=== PATIENT | male | born 1965 | race Caucasian/White ===

== ENCOUNTER 2020-09-17 12:48 | Outpatient (REF) | payer MEDICARE, MEDICAID, OTHER, SELFPAY | END 2020-09-17 12:49 | disposition home or self-care (01) | LOC: HO.LAB 12:48 | PROVIDERS: Visit Provider Internal Medicine | DX: Z20.822 Contact with and (suspected) exposure to COVID-19 (principal) | CPT/HCPCS: 36415; C9803; U0003 ==

== ENCOUNTER 2021-01-21 00:45 | Inpatient (IN) | payer MEDICARE, MEDICAID, SELFPAY ==
[2021-01-21] VITALS (14 sets, daily range): BP systolic 110–160; BP diastolic 78–100; PULSE 84–108; RESP 15–22; TEMP 36–37.3; O2SAT 90–96; BMI 39.9
--- NOTE | ~2021-01-21 | XR_ITS ---
EXAMINATION: XR CHEST CLINICAL INFORMATION: Cough COMPARISON: 07/10/2019 TECHNIQUE: Frontal view of the chest was obtained. FINDINGS: Lung volumes are symmetric. There is heterogeneous airspace opacity at the right lung base. No pneumothorax is seen. No appreciable pleural effusion. The cardiomediastinal contour is unremarkable. No acute osseous findings are seen. XR/XR chest 1V IMPRESSION: Heterogeneous right basilar opacity suspicious for pneumonia in the proper clinical setting. Radiographic followup after treatment/resolution of symptoms is recommended.
--- NOTE | ~2021-01-21 | CT_ITS ---
EXAMINATION: CT CHEST WITHOUT CONTRAST CLINICAL INFORMATION: acute hypoxemic respiratory failure sec to pneumonia . COMPARISON: 01/21/2021 chest x-ray. TECHNIQUE: Multidetector volumetric imaging was performed from the thoracic inlet through the lung bases without contrast. Sagittal and coronal reformatted images were obtained on the technologist workstation. Soft tissue and lung algorithms evaluated. Thick slab MIP images were performed to increase nodule conspicuity. This CT examination was performed using dose optimization techniques as appropriate, variously including the following: *Automated exposure control *Adjustment of mA and/or kV according to patient size (this includes techniques or standardized protocols for targeted exams where dose is matched to indication/reason for exam; i.e. extremities or head) *Use of iterative reconstruction technique DLP: 401 mGy-cm. FINDINGS: LUNG: Patchy groundglass airspace disease is seen bilaterally suggesting a viral or atypical infectious etiology. No dense consolidation or air bronchograms otherwise. Central airways appear intact. MEDIASTINUM: Mild vascular calcification within the aorta and coronary vessels. No bulky adenopathy. No significant hiatal hernia PERICARDIUM/PLEURA: No significant effusion. No pleural mass or thickening. THYROID/VISUALIZED LOWER NECK: Thyroid is not visualized on the study CHEST WALL/AXILLA: Unremarkable. VISUALIZED UPPER ABDOMEN: Gallbladder surgically absent CT/CT chest wo con IMPRESSION: Patchy bilateral groundglass airspace disease concerning for viral or atypical infectious etiology without dense consolidation.
--- NOTE | 2021-01-21 00:55 | ED_ITS ---
HPI - Back Pain/Injury General Chief Complaint: Back Pain/Injury Stated Complaint: back pain Time Seen by Provider: 01/21/21 00:53 Source: patient and EMS Mode of arrival: EMS Limitations: no limitations History of Present Illness MD elicited complaint: back pain and back injury Pertinent past history: recent trauma Onset (ago): week(s) (2) Timing: progressively worsening Severity: moderate Similar Symptoms Previously: No Quality: spasming Location: thoracic spine Radiation: none Exacerbating factors: movement and coughing/sneezing Relieving factors: none Context: while lifting (fridge) Associated symptoms: other (noted some cough and wheezing) Work related injury: No Related Data Allergies Allergy/AdvReac Type Severity Reaction Status Date / Time No Known Allergies Allergy Unverified 05/22/20 19:42 [No Known Allergies*] Review of Systems Review of Systems: Constitutional : No Weight loss, No Fever, No Chills, ENT/Mouth : No Hearing loss, No Ear Pain, No Nasal Congestion, No Sinus Pain, No Hoarseness, No sore throat, No Rhinorrhea, No Swallowing Difficulty Cardiovascular : No Chest Pain, No SOB Respiratory : pos Cough, No Dyspnea Gastrointestinal : No Nausea, No Vomiting, No Diarrhea, No abdominal Pain, No Hematochezia, No Melena Genitourinary : No Dysuria, No Urinary Frequency, No Hematuria, No Urinary Incontinence, Musculoskeletal : positive back pain Skin : No Skin Lesions, No rash Neuro : No Weakness, No Numbness, No Paresthesias, no loss of bowel or bladder incontinence, no saddle anesthesia PMFSH Past Medical History Attestation statement: The following information was validated with the patient. Medical History Alcoholic cirrhosis Alcoholism Anxiety COPD (chronic obstructive pulmonary disease) TBI (traumatic brain injury) Social History Social History (Updated 01/21/21 @ 00:56 by Cinthia Hernandez DO) Smoking Status: Current every day smoker Substance Use Type: Former Substance User Advance Directives: No Advance Directives Information Provided: No Physical Exam Vital Signs: Vital Signs: Last Vital Signs Temp 98.4 F 01/21/21 02:48 Pulse 99 01/21/21 02:48 Resp 18 01/21/21 02:48 BP 151/100 H 01/21/21 02:48 Pulse Ox 94 01/21/21 02:48 Body Mass Index 39.9 Appearance: Alert. Oriented X3. No acute distress. Eyes: Pupils equal, round and reactive to light. ENT: Pharynx normal. Neck: Normal inspection. Neck supple. CVS: Normal heart rate and rhythm. Pulses normal. Respiratory: No respiratory distress. Breath sounds mild diffuse end exp wheezes Back: ttp along thoracic paraspinal muscles Abdomen: Soft and nontender. Skin: Skin warm and dry. Normal skin color. Normal skin turgor. Extremities: No lower extremity edema. No calf ttp Neuro: Oriented X 3. No motor deficit. No sensory deficit. Course Course Course Narrative: pneumonia noted on xray, labs, COVID swab, IV antibiotics, cultures ordered, requiring O2 now started wheeze after exerting himself - given 5mg neb, oral steroids were given prior to change in wheezing status - at this time likely admit for COPD does not wear O2 at home MDM - Back Pain/Injury MDM Narrative Medical decision making narrative: 55 yo male hx of COPD, HTN, in recovery for ETOH and heroin comes in with back spasms post lifting a fridge 2 weeks ago - no b/b incontinence, no saddle anesthesia, no AC therapy, no IVDA, at this time also some scant wheezes will need INH, PO prednisone, CXR and valium, NV intact, no signs of CE syndrome Lab Data Result diagrams: 01/21/21 02:24 01/21/21 02:23 Labs: Lab Results 01/21/21 01/21/21 01/21/21 Range/Units 02:21 02:22 02:22 WBC (4.8-10.8) X10*3/uL RBC (4.60-5.80) X10*6/uL Hgb (14.0-18.0) g/dl Hct (42-52) % MCV (80-98) fL MCH (27.0-33.0) pg MCHC (31.0-36.0) g/dl RDW (11.0-16.0) % Plt Count (160-400) X10*3/uL MPV (9.4-12.4) fL Immature Gran % (Auto) (0.0-0.4) % Neut % (Auto) (45-73) % Lymph % (Auto) (20-40) % [place] % (Auto) (2-11) % Eos % (Auto) (0-4) % Baso % (Auto) (0-2) % Lymph # (Auto) (1.2-4.9) X10*3/uL [place] # (Auto) (0.1-1.2) X10*3/uL Eos # (Auto) (0.0-0.4) X10*3/uL Baso # (Auto) (0.0-0.2) X10*3/uL Abs Immat Gran (auto) (0.00-0.03) X10*3/uL Absolute Neuts (auto) (2.0-8.3) X10*3/uL Absolute Nucleated RBC (0.0-0.012) X10*3/uL Nucleated RBC % (auto) (0.0-0.2) /100WBC PT (10.8-13.0) SEC INR (0.9-1.1) APTT (24.1-38.0) SEC Lactic Acid 1.0 (0.5-2.0) mmol/L Magnesium (1.6-2.6) mg/dL Total Bilirubin (0.0-1.0) mg/dL Direct Bilirubin (0.0-0.5) mg/dL AST (5-37) U/L ALT (0-40) U/L Alkaline Phosphatase (39-117) U/L Lactate Dehydrogenase (118-273) U/L Troponin I High Sens < 3.5 (<3.5-35.0) ng/L Total Protein (6.5-8.0) g/dL Albumin (3.5-5.0) g/dL Lipase (8-78) U/L COVID-19 (YADIRA) Negative (Negative) COVID-19 Clin Com See Note 01/21/21 01/21/21 01/21/21 Range/Units 02:23 02:24 02:24 WBC 11.3 H (4.8-10.8) X10*3/uL RBC 4.14 L (4.60-5.80) X10*6/uL Hgb 12.2 L (14.0-18.0) g/dl Hct 36.6 L (42-52) % MCV 88.4 (80-98) fL MCH 29.5 (27.0-33.0) pg MCHC 33.3 (31.0-36.0) g/dl RDW 15.9 (11.0-16.0) % Plt Count 131 L (160-400) X10*3/uL MPV 9.9 (9.4-12.4) fL Immature Gran % (Auto) 0.6 H (0.0-0.4) % Neut % (Auto) 73.4 H (45-73) % Lymph % (Auto) 12.0 L (20-40) % [place] % (Auto) 4.2 (2-11) % Eos % (Auto) 9.5 H (0-4) % Baso % (Auto) 0.3 (0-2) % Lymph # (Auto) 1.4 (1.2-4.9) X10*3/uL [place] # (Auto) 0.5 (0.1-1.2) X10*3/uL Eos # (Auto) 1.1 H (0.0-0.4) X10*3/uL Baso # (Auto) 0.0 (0.0-0.2) X10*3/uL Abs Immat Gran (auto) 0.07 H (0.00-0.03) X10*3/uL Absolute Neuts (auto) 8.3 (2.0-8.3) X10*3/uL Absolute Nucleated RBC 0.000 (0.0-0.012) X10*3/uL Nucleated RBC % (auto) 0.0 (0.0-0.2) /100WBC PT 13.8 H (10.8-13.0) SEC INR 1.2 H (0.9-1.1) APTT 31.0 (24.1-38.0) SEC Lactic Acid (0.5-2.0) mmol/L Magnesium 1.8 (1.6-2.6) mg/dL Total Bilirubin 1.0 (0.0-1.0) mg/dL Direct Bilirubin 0.5 (0.0-0.5) mg/dL AST 21 (5-37) U/L ALT 18 (0-40) U/L Alkaline Phosphatase 170 H (39-117) U/L Lactate Dehydrogenase 335 H (118-273) U/L Troponin I High Sens (<3.5-35.0) ng/L Total Protein 7.4 (6.5-8.0) g/dL Albumin 4.2 (3.5-5.0) g/dL Lipase 9 (8-78) U/L COVID-19 (YADIRA) (Negative) COVID-19 Clin Com ECG Data Attestation: I personally reviewed and interpreted this ECG as follows: ECG interpretation date: 01/21/21 ECG interpretation time: 03:07 Interpretation: Rate: 98 Rhythm: NSR with occ PACs [place]: normal Normal P waves. Normal MATEUSZ. Normal QRS complex. ST T wave : normal no DUANE qTC: normal prior studies: no acute ischemia The study has been interpreted contemporaneously by me. . Discharge Plan Discharge Clinical Impression: Thoracic back pain Qualifiers: Chronicity: acute Back pain laterality: bilateral Qualified Code(s): M54.6 - Pain in thoracic spine COPD (chronic obstructive pulmonary disease) Qualifiers: COPD type: COPD with acute exacerbation Qualified Code(s): J44.1 - Chronic obstructive pulmonary disease with (acute) exacerbation Pneumonia Qualifiers: Pneumonia type: due to unspecified organism Laterality: right Lung location: lower lobe of lung Qualified Code(s): J18.9 - Pneumonia, unspecified organism Patient Disposition: Admitted As Inpatient
[2021-01-21] MEDS: predniSONE 20 MG TABLET 60 MG PO (01:08)
[2021-01-21] MEDS: diazePAM 5 MG TABLET PO (01:08)
[2021-01-21] MEDS: Albuterol Sulfate 90 MCG 8 GM INHALER 4 PUFF INHALE (01:08)
--- NOTE | 2021-01-21 01:25 | ECG_ITS ---
Test Reason : SOB Blood Pressure : / mmHG Vent. Rate : 098 BPM Atrial Rate : 098 BPM P-R Int : 164 ms QRS Dur : 080 ms QT Int : 350 ms P-R-T Axes : 023 017 023 degrees QTc Int : 446 ms Sinus rhythm with Premature atrial complexes Otherwise normal ECG When compared with ECG of 10-JUL-2019 11:40, Premature atrial complexes are now Present Referred By: Cinthia Hernandez Electronically Signed By:VIJI BRAY MD
[2021-01-21 02:42] LABS: INTERNATIONAL NORM RATIO 1.2 (0.9-1.1); Prothrombin Time 13.8 SEC (10.8-13.0)
[2021-01-21 02:45] LABS: Basophils Percent Auto 0.3 % (0-2); Mean Corpuscular Volume 88.4 fL (80-98); PLT CLUMP 1; Red Cell Distribution Width 15.9 % (11.0-16.0); SCAN SMEAR FLAG 1
[2021-01-21 02:47] LABS: Eosinophils Absolute Auto 1.1 X10*3/uL (0.0-0.4); Eosinophils Percent Auto 9.5 % (0-4); Hematocrit 36.6 % (42-52); Hemoglobin 12.2 g/dl (14.0-18.0); Imm Gran Abs Auto 0.07 X10*3/uL (0.00-0.03); Imm Gran Pct Auto 0.6 % (0.0-0.4); Lymphocytes Absolute Auto 1.4 X10*3/uL (1.2-4.9); Mean Corpuscular HGB Conc 33.3 g/dl (31.0-36.0); Mean Corpuscular Hemoglobin 29.5 pg (27.0-33.0); Mean Platelet Volume 9.9 fL (9.4-12.4); Monocytes Absolute Auto 0.5 X10*3/uL (0.1-1.2); Monocytes Percent Auto 4.2 % (2-11); Neutrophils Absolute Auto 8.3 X10*3/uL (2.0-8.3); Neutrophils Percent Auto 73.4 % (45-73); Platelet Count 131 X10*3/uL (160-400); Red Blood Count 4.14 X10*6/uL (4.60-5.80); White Blood Count 11.3 X10*3/uL (4.8-10.8)
[2021-01-21 02:51] LABS: COVID-19 Test Negative (Negative)
[2021-01-21 02:52] LABS: MANUAL DIFF FLAG NO
[2021-01-21] MEDS: cefTRIAXone sodium 1 GM in 0.9 % Sodium Chloride 50 ML IV ×2 (02:55→22:25)
[2021-01-21] MEDS: Acetaminophen 325 MG TABLET 650 MG PO (02:55)
[2021-01-21 03:05] LABS: Alanine Aminotransferase 18 U/L (0-40); Albumin Level 4.2 g/dL (3.5-5.0); Alkaline Phosphatase 170 U/L (39-117); Aspartate Amino Transferase 21 U/L (5-37); Bilirubin Direct 0.5 mg/dL (0.0-0.5); Lactate Dehydrogenase 335 U/L (118-273); Lipase 9 U/L (8-78); Magnesium 1.8 mg/dL (1.6-2.6); Total Protein 7.4 g/dL (6.5-8.0)
[2021-01-21 03:08] LABS: Troponin-I High Sensitivity < 3.5 ng/L (<3.5-35.0)
[2021-01-21 03:11] LABS: B Type Natriuretic Peptide < 10 pg/mL (<100)
[2021-01-21] MEDS: Azithromycin 500 MG in 0.9 % Sodium Chloride 250 ML 125 MG IV ×2 (03:15→22:25)
[2021-01-21 03:25] LABS: Ferritin 84 ng/mL (20-250)
[2021-01-21 03:40] LABS: Procalcitonin 0.08 ng/mL
[2021-01-21] MEDS: Albuterol Sulfate (0.083%) 2.5 MG/3 ML VIAL.NEB 5 MG INHALE (03:58)
[2021-01-21 05:01] LABS: Anion Gap 16 (12-20); Blood Urea Nitrogen 17 mg/dL (9-16); Calcium 8.9 mg/dL (8.4-10.2); Carbon Dioxide 24 mmol/L (22-29); Chloride 99 mmol/L (96-108); Creatinine Clr Calc Pharmacy 82.9; Estimated Glomerular Filt Rate 58; Glucose Random 144 mg/dL (60-115); Potassium 4.2 mmol/L (3.3-5.1); Sodium 135 mmol/L (135-145)
--- NOTE | 2021-01-21 05:03 | PM.IMHP ---
History of Present Illness Date of Service: 01/21/21 Chief Complaint: Difficulty breathing, back pain This is a 55-year-old male with past medical history of COPD, hypertension, TBI, CHF who presents to the hospital with complaints of difficulty breathing as well as back pain. Patient reports that his breathing difficulty started about 2 weeks ago, worsened over the course of 2 weeks, associated with cough, sputum production, no fever but chills and sweats. He also moved afraid about a week and half ago on this when he is back started hurting him associated with spasm. Localized to the middle back, 05/15, nonradiating to arms or legs, no weakness numbness or tingling in his extremities. Patient denies any sick contacts or recent travel. Denies any orthopnea PND, no urinary symptoms and no lower extremity edema. No headache change in vision or dizziness. On arrival to the ED patient hemodynamically stable with a temperature of 99.2?, heart rate of 101, respiratory rate of 22, blood pressure of 148/80, satting 90% on room air. Patient apparently did dip to the low 80s on ambulation. Lab significant for WBC count of 11.3, hemoglobin of 12.2, PT of 13.8, INR of 1.2, BUN of 17, creatinine of 1.27 which is around his baseline, alk-phos of 170, and LDH of 335. COVID-19 negative. Chest x-ray shows heterogeneous right basilar opacity suspicious for pneumonia Past medical history as below and confirmed as patient Review of Systems Review of Systems: Yes all other systems are reviewed and are negative [facility] Medical History (Updated 01/21/21 @ 05:11 by Di Mancuso MD) Anxiety CHF (congestive heart failure) COPD (chronic obstructive pulmonary disease) COPD exacerbation Hypertension TBI (traumatic brain injury) Pertinent family history: Mother of lymphoma, father of Alzheimer's Surgical History (Updated 01/21/21 @ 05:09 by Di Mancuso MD) No significant past surgical history Social History Alcohol intake: never Smoking Status: Current every day smoker Smoked in Last 30 Days: Yes Use of substances other than those prescribed or required for medical reasons: No Substance Use Type: Former Substance User Advance Directives: No Advance Directives Information Provided: No Meds Allergies Allergy/AdvReac Type Severity Reaction Status Date / Time No Known Allergies Allergy Unverified 05/22/20 19:42 [No Known Allergies*] Active Medications: Current Medications Generic Name Dose Route Start Last Admin Trade Name Freq PRN Reason Stop Dose Admin Acetaminophen 650 mg 01/21/21 04:56 Acetaminophen 325 Mg Tablet PO Q6H PRN Pain, Mild (Pain Scale 1-3) Albuterol/Ipratropium 3 ml 01/21/21 08:00 Albuterol/Iprat 2.5/0.5mg 3 Ml Ampul.Neb INHALE RQ4H WHILE AWAKE [facility] Albuterol/Ipratropium 3 ml 01/21/21 04:56 Albuterol/Iprat 2.5/0.5mg 3 Ml Ampul.Neb INHALE RQ4H PRN Shortness of Breath/Wheezing Aripiprazole 5 mg 01/21/21 09:00 Aripiprazole 5 Mg Tablet PO DAILY [facility] Buprenorphine/Naloxone film 01/21/21 09:00 Buprenorphine/Naloxone 8/2 Mg Film SUBLINGUAL DAILY [facility] Bupropion HCl 300 mg 01/21/21 04:56 Bupropion Hcl Xl 300 Mg Tab.Er.24h PO QAM [facility] Clonidine HCl 0.1 mg 01/21/21 09:00 Clonidine Hcl 0.1 Mg Tablet PO BID [facility] Protocol Cyclobenzaprine HCl 10 mg 01/21/21 04:52 Cyclobenzaprine Hcl 10 Mg Tablet PO TID PRN Muscle Spasm Docusate Sodium 100 mg 01/21/21 04:56 Docusate Sodium 100 Mg Capsule PO DAILY PRN Constipation Enoxaparin Sodium 40 mg 01/21/21 05:00 Enoxaparin Sodium 40 Mg/0.4 Ml Syringe SUBCUT Q24H [facility] Furosemide 40 mg 01/21/21 09:00 Furosemide 40 Mg Tablet PO DAILY [facility] Protocol Hydroxyzine HCl 25 mg 01/21/21 04:56 Hydroxyzine Hcl 25 Mg Tablet PO Q8H PRN Anxiety Ceftriaxone Sodium 1 gm/ 50 mls @ 100 mls/hr 01/21/21 05:00 Sodium Chloride IV Q24H [facility] Azithromycin 500 mg/ Sodium 250 mls @ 125 mls/hr 01/21/21 05:00 Chloride IV Q24H [facility] Lidocaine 1 patch 01/21/21 09:00 Lidocaine 4 % Patch Adh..Patch TRANSDERMA DAILY [facility] Protocol Methylprednisolone Sodium Succinate 40 mg 01/21/21 05:00 Methylprednisolone Sod Succ 40 Mg/Ml Vial IVPUSH Q12H [facility] Non-Formulary Medication 1 tab 01/21/21 04:56 Bupropion Hcl PO QAM [facility] Omeprazole 20 mg 01/21/21 09:00 Omeprazole 20 Mg Capsule.Dr PO DAILY [facility] Ondansetron HCl 4 mg 01/21/21 04:56 Ondansetron Hcl 4 Mg/2 Ml Vial IVPUSH Q8H PRN Nausea and Vomiting Paroxetine HCl 40 mg 01/21/21 04:56 Paroxetine Hcl 40 Mg Tablet PO QAM [facility] Pharmacy Consult 1 each 01/21/21 01:25 Consult Rx Perform Med Rec MISCELLANE ONCE PRN Consult order Pharmacy Consult 1 each 01/21/21 02:54 Consult Rx Perform Med Rec MISCELLANE ONCE PRN Consult order Sodium Chloride 3 ml 01/21/21 08:00 0.9 % Sodium Chloride Flush 3 Ml [facility] Spironolactone 25 mg 01/21/21 09:00 Spironolactone 25 Mg Tablet PO DAILY [facility] Protocol Tamsulosin HCl 0.8 mg 01/21/21 09:00 Tamsulosin Hcl 0.4 Mg Capsule PO DAILY [facility] Home Medications Medication Instructions Recorded Confirmed Last Taken Type aripiprazole 1 tab PO DAILY 01/21/21 01/21/21 Unknown History buprenorphine-naloxone [Suboxone] 2 strip SUBLINGUAL DAILY 01/21/21 01/21/21 Unknown History bupropion HCl 1 tab PO QAM 01/21/21 01/21/21 Unknown History bupropion HCl 1 tab PO QAM 01/21/21 01/21/21 Unknown History clonidine HCl 1 tab PO BID 01/21/21 01/21/21 Unknown History sknnvlcctuy-jafubqfet-upvfufld 1 puff INHALATION DAILY 01/21/21 01/21/21 Unknown History [Trelegy Ellipta] furosemide 1 tab PO DAILY 01/21/21 01/21/21 Unknown History hydroxyzine HCl 25 mg PO Q8H PRN 01/21/21 01/21/21 Unknown History ibuprofen 1 tab PO Q8H PRN 01/21/21 01/21/21 Unknown History nicotine [Nicotrol] INHALATION 01/21/21 Unknown History omeprazole 1 cap PO DAILY 01/21/21 01/21/21 Unknown History paroxetine HCl 1 tab PO QAM 01/21/21 01/21/21 Unknown History spironolactone 1 tab PO DAILY 01/21/21 01/21/21 Unknown History tamsulosin 2 cap PO DAILY 01/21/21 01/21/21 Unknown History Physical Exam Vital Signs and Narrative: Vital Signs: Last Vital Signs Temp 98.6 F 01/21/21 04:56 Pulse 95 01/21/21 04:56 Resp 15 01/21/21 04:56 BP 138/88 01/21/21 04:56 Pulse Ox 94 01/21/21 04:56 Body Mass Index 39.9 Const: General: cooperative and no acute distress Orientation/consciousness: patient oriented x3 Eyes: General: appearance normal, both eyes and all related structures Resp: Effort & Inspection: normal respiratory effort and able to speak in complete sentences Cardio: Rate: regular rate Rhythm: regular rhythm GI: Palpation (GI): Soft to palpation Auscultation: normal bowel sounds Skin: General skin exam: no rashes or lesions noted Neuro: General: patient oriented x3 Cognition (Neuro): normal cognition Extrem: Other: Significant muscle spasm as well as tenderness in the midback on palpation. No neurological deficits General: Yes normal to inspection and Yes no pedal edema Results Labs CBC and Chem 7: 01/21/21 02:24 01/21/21 02:23 Labs: Laboratory Results - last 24 hr 01/21/21 01/21/21 01/21/21 02:21 02:22 02:22 MCV MCH MCHC RDW Plt Count MPV Immature Gran % (Auto) Neut % (Auto) Lymph % (Auto) [place] % (Auto) Eos % (Auto) Baso % (Auto) Lymph # (Auto) [place] # (Auto) Eos # (Auto) Baso # (Auto) Abs Immat Gran (auto) Absolute Neuts (auto) Absolute Nucleated RBC Nucleated RBC % (auto) PT INR APTT Anion Gap Estim Creat Clear Calc Estimated GFR Random Glucose Lactic Acid 1.0 Calcium Magnesium Ferritin Total Bilirubin Direct Bilirubin AST ALT Alkaline Phosphatase Lactate Dehydrogenase Troponin I High Sens < 3.5 B-Natriuretic Peptide Total Protein Albumin Lipase Procalcitonin COVID-19 ([facility]A) Negative COVID-19 Clin Com See Note 01/21/21 01/21/2101/21/21 02:22 02:23 02:23 MCV MCH MCHC RDW Plt Count MPV Immature Gran % (Auto) Neut % (Auto) Lymph % (Auto) [place] % (Auto) Eos % (Auto) Baso % (Auto) Lymph # (Auto) [place] # (Auto) Eos # (Auto) Baso # (Auto) Abs Immat Gran (auto) Absolute Neuts (auto) Absolute Nucleated RBC Nucleated RBC % (auto) PT INR APTT Anion Gap 16 Estim Creat Clear Calc 82.9 Estimated GFR 58 Random Glucose 144 H Lactic Acid Calcium 8.9 Magnesium Ferritin Total Bilirubin Direct Bilirubin AST ALT Alkaline Phosphatase Lactate Dehydrogenase Troponin I High Sens B-Natriuretic Peptide < 10 Total Protein Albumin Lipase Procalcitonin 0.08 COVID-19 ([facility]ADIRA) COVID-19 Symphogen 01/21/21 01/21/21 01/21/21 02:23 02:24 02:24 MCV 88.4 MCH 29.5 MCHC 33.3 RDW 15.9 Plt Count 131 L MPV 9.9 Immature Gran % (Auto) 0.6 H Neut % (Auto) 73.4 H Lymph % (Auto) 12.0 L [place] % (Auto) 4.2 Eos % (Auto) 9.5 H Baso % (Auto) 0.3 Lymph # (Auto) 1.4 [place] # (Auto) 0.5 Eos # (Auto) 1.1 H Baso # (Auto) 0.0 Abs Immat Gran (auto) 0.07 H Absolute Neuts (auto) 8.3 Absolute Nucleated RBC 0.000 Nucleated RBC % (auto) 0.0 PT 13.8 H INR 1.2 H APTT 31.0 Anion Gap Estim Creat Clear Calc Estimated GFR Random Glucose Lactic Acid Calcium Magnesium 1.8 Ferritin 84 Total Bilirubin 1.0 Direct Bilirubin 0.5 AST 21 ALT 18 Alkaline Phosphatase 170 H Lactate Dehydrogenase 335 H Troponin I High Sens B-Natriuretic Peptide Total Protein 7.4 Albumin 4.2 Lipase 9 Procalcitonin COVID-19 ([facility]) COVID-19 Clin Com Imaging Radiologist's Impressions: Impressions Chest X-Ray 01/21/21 00:53 IMPRESSION: Heterogeneous right basilar opacity suspicious for pneumonia in the proper clinical setting. Radiographic followup after treatment/resolution of symptoms is recommended. Assessment and Plan (1) Sepsis: Status: Acute (2) COPD exacerbation: Status: Acute (3) Muscle spasm: Status: Acute (4) Community acquired pneumonia: Status: Acute (5) Thoracic back pain: Qualifiers: Back pain laterality: bilateral Chronicity: acute Qualified Code(s): M54.6 - Pain in thoracic spine Status: Acute This is a 55-year-old male with past medical history of COPD who presents to the hospital with difficulty breathing cough as well as muscle spasm and back pain. # sepsis - secondary to community-acquired pneumonia - has leukocytosis, tachycardia, tachypnea - lactic acid normal no hypertension - will start him IV antibiotics - follow cultures # community-acquired pneumonia - COVID-19 PCR negative - started on IV antibiotics - follow cultures # muscle spasm - most likely secondary to recent moving of heavy equipment - will start him on muscle relaxants p.r.n. # back pain - secondary to above - lidocaine patch and muscle relaxant # COPD exacerbation - secondary to acute pneumonia - will start him on Solu-Medrol IV 40 b.i.d., DuoNeb p.r.n. and scheduled - antibiotics as above # acute hypoxic respiratory failure - also dropping to the 80s on ambulation most likely secondary to COPD as well as pneumonia - currently on 3 L of oxygen - treat pneumonia as above - wean off oxygen as tolerated # hypertension - stable - continue spironolactone, clonidine # CHF - no exacerbation - continue Lasix home dose DVT prophylaxis:lovenox
[2021-01-21] MEDS: methylPREDNISolone Sod Succ 40 MG/ML VIAL IVPUSH ×2 (06:09→15:53)
--- NOTE | 2021-01-21 06:27 | PC.NURSE ---
This rn counted and secured all of pt's medications; controlled substances verified by Mamta Murcia RN. This RN brought secured/signed envelope to pharmacy, put white copy of paper count in pt's chart, and left pink and yellow copies with pharmacy. Pt aware.
[2021-01-21] MEDS: Albuterol/Iprat 2.5/0.5MG 3 ML AMPUL.NEB INHALE ×4 (07:50→20:24)
--- NOTE | 2021-01-21 08:16 | PM.EVENT ---
Event Note Date of Service: 01/21/21 Event Note: This patient is seen and examined. Physical exam and assessment and plan coordinated in h&p note, sob and cough improving Physical exam: Cvs: rrr, [id number] , no murmur res: fair air entruy , diminshed at right>left ,has wheezing abd: no rebound or guarding ,nt, bs present. ext pulses present , no cyanosis neuro: axo3 , nonfocal. Agree with the plan in addition: sepsis/pna: Continue IV antibiotics, nebs, steroids
[2021-01-21] MEDS: Cyclobenzaprine HCl 10 MG TABLET PO ×3 (08:32→20:17)
[2021-01-21] MEDS: Enoxaparin Sodium 40 MG/0.4 ML SYRINGE SUBCUT (08:32)
[2021-01-21] MEDS: Lidocaine 4 % Patch ADH..PATCH 1 PATCH TRANSDERMA (09:51)
[2021-01-21] MEDS: Tamsulosin HCL 0.4 MG CAPSULE 0.8 MG PO (09:51)
[2021-01-21] MEDS: Buprenorphine/Naloxone 8/2 mg FILM 2 FILM SUBLINGUAL (09:51)
[2021-01-21] MEDS: Furosemide 40 MG TABLET PO (09:52)
[2021-01-21] MEDS: ARIPiprazole 5 MG TABLET PO (09:52)
[2021-01-21] MEDS: buPROPion HCl XL 300 MG TAB.ER.24H PO (09:52)
[2021-01-21] MEDS: 0.9 % Sodium Chloride Flush 3 ML SYRINGE IVFLUSH ×2 (09:52→15:54)
[2021-01-21] MEDS: cloNIDine HCL 0.1 MG TABLET PO ×2 (09:52→20:17)
[2021-01-21] MEDS: PARoxetine HCL 40 MG TABLET PO (09:52)
[2021-01-21] MEDS: Omeprazole 20 MG CAPSULE.DR PO (09:52)
[2021-01-21] MEDS: Spironolactone 25 MG TABLET PO (09:52)
[2021-01-21] MEDS: Nicotine 14 MG PATCH.TD24 TRANSDERMA (10:13)
--- NOTE | 2021-01-21 11:28 | MHC.CM.PN ---
PATIENT IS FULLY INDEPENDENT. HE HAS INHALERS AND A DISK AT HOME. HE DOES RELY ON OTHERS FOR TRANSPORTATION. CURRENTLY STAYING AT A SOBER LIVING HOME AND ADDRESS CHANGE REQUEST HAS BEEN MADE. NO DME FOR AMBULATION. IMM 01/21 IN CHART. CASE MANAGEMENT FOLLOWING FOR DISCHARGE NEEDS. HE IS AWARE OF IMPORTANCE OF ASSIGNING A HCP AGENT AND WILL CONSIDER. CASE MANAGEMENT CONTACT CARD LEFT BEDSIDE.
[2021-01-22] VITALS (13 sets, daily range): BP systolic 114–147; BP diastolic 67–82; PULSE 85–102; RESP 16–24; TEMP 36.2–36.7; O2SAT 90–96
[2021-01-22] MEDS: methylPREDNISolone Sod Succ 40 MG/ML VIAL IVPUSH ×2 (04:24→18:02)
[2021-01-22 04:58] LABS: MANUAL DIFF FLAG NO
[2021-01-22 05:08] LABS: Basophils Percent Auto 0.2 % (0-2); Eosinophils Percent Auto 0.3 % (0-4); Hematocrit 34.1 % (42-52); Hemoglobin 11.5 g/dl (14.0-18.0); Imm Gran Abs Auto 0.06 X10*3/uL (0.00-0.03); Imm Gran Pct Auto 0.6 % (0.0-0.4); Lymphocytes Absolute Auto 0.9 X10*3/uL (1.2-4.9); Lymphocytes Percent Auto 8.4 % (20-40); Mean Corpuscular HGB Conc 33.7 g/dl (31.0-36.0); Mean Corpuscular Hemoglobin 29.6 pg (27.0-33.0); Mean Corpuscular Volume 87.7 fL (80-98); Mean Platelet Volume 10.4 fL (9.4-12.4); Monocytes Absolute Auto 0.4 X10*3/uL (0.1-1.2); Monocytes Percent Auto 3.7 % (2-11); Neutrophils Absolute Auto 8.8 X10*3/uL (2.0-8.3); Neutrophils Percent Auto 86.8 % (45-73); Platelet Count 115 X10*3/uL (160-400); Red Blood Count 3.89 X10*6/uL (4.60-5.80); Red Cell Distribution Width 15.4 % (11.0-16.0); White Blood Count 10.2 X10*3/uL (4.8-10.8)
[2021-01-22 05:26] LABS: Anion Gap 15 (12-20); Blood Urea Nitrogen 21 mg/dL (9-16); Calcium 9.2 mg/dL (8.4-10.2); Carbon Dioxide 25 mmol/L (22-29); Chloride 102 mmol/L (96-108); Creatinine Clr Calc Pharmacy 109.7; Estimated Glomerular Filt Rate > 60; Glucose Random 139 mg/dL (60-115); Sodium 138 mmol/L (135-145)
[2021-01-22] MEDS: Albuterol/Iprat 2.5/0.5MG 3 ML AMPUL.NEB INHALE ×5 (07:24→23:53)
[2021-01-22] MEDS: Buprenorphine/Naloxone 8/2 mg FILM 2 FILM SUBLINGUAL (07:26)
[2021-01-22] MEDS: Nicotine 14 MG PATCH.TD24 TRANSDERMA (07:27)
[2021-01-22] MEDS: Lidocaine 4 % Patch ADH..PATCH 1 PATCH TRANSDERMA (07:27)
[2021-01-22] MEDS: Enoxaparin Sodium 40 MG/0.4 ML SYRINGE SUBCUT (07:27)
[2021-01-22] MEDS: Tamsulosin HCL 0.4 MG CAPSULE 0.8 MG PO (07:28)
[2021-01-22] MEDS: Spironolactone 25 MG TABLET PO (07:28)
[2021-01-22] MEDS: Furosemide 40 MG TABLET PO (07:28)
[2021-01-22] MEDS: Omeprazole 20 MG CAPSULE.DR PO (07:28)
[2021-01-22] MEDS: buPROPion HCl XL 300 MG TAB.ER.24H PO (07:29)
[2021-01-22] MEDS: PARoxetine HCL 40 MG TABLET PO (07:29)
[2021-01-22] MEDS: ARIPiprazole 5 MG TABLET PO (07:29)
[2021-01-22] MEDS: cloNIDine HCL 0.1 MG TABLET PO ×2 (07:29→21:43)
[2021-01-22] MEDS: 0.9 % Sodium Chloride Flush 3 ML SYRINGE IVFLUSH ×3 (07:30→21:43)
[2021-01-22] MEDS: buPROPion HCl XL 150 MG TAB.ER.24H PO (08:10)
[2021-01-22] MEDS: Cyclobenzaprine HCl 10 MG TABLET PO ×2 (08:12→15:40)
[2021-01-22] MEDS: Acetaminophen 325 MG TABLET 650 MG PO (09:43)
[2021-01-22] MEDS: hydrOXYzine HCL 25 MG TABLET PO (09:50)
[2021-01-22] MEDS: hydrOXYzine HCL 25 MG TABLET 50 MG PO ×2 (10:36→18:02)
--- NOTE | 2021-01-22 11:33 | MHC.CM.PN ---
PATIENT IS DISCHARGED HOME WITH NO SERVICES. SISTER TO PROVIDE TRANSPORT HOME.
--- NOTE | 2021-01-22 14:48 | HO.PM.IMPN ---
Subjective Subjective Date of Service: 01/23/21 Interval History: copd exceerbation, pneumonia Review of Systems still sob Has some gaseous sensation in the stomach, past bowels yesterday. Denies any nausea vomiting or diarrhea. No abdominal pain Physical Exam Vital Signs: Vital Signs: Last Vital Signs Temp 97.1 F 01/22/21 11:13 Pulse 102 H 01/22/21 11:13 Resp 20 01/22/21 11:13 BP 119/67 01/22/21 11:13 Pulse Ox 92 01/22/21 11:13 Body Mass Index 39.9 Physical exam: Constitution: Noted acute distress Cvs: rrr, [id number] , no murmur res: fair air entry , diminshed at right>left ,has few rhonchii abd: no rebound or guarding ,nt, bs present. ext pulses present , no cyanosis neuro: axo3 , nonfocal. Objective Data Current Medications Generic Name Dose Route Start Last Admin Trade Name Freq PRN Reason Stop Dose Admin Acetaminophen 650 mg 01/21/21 04:56 01/22/21 09:43 Acetaminophen 325 Mg Tablet PO 650 mg Q6H PRN Administration Pain, Mild (Pain Scale 1-3) Albuterol/Ipratropium 3 ml 01/21/21 08:00 01/22/21 11:02 Albuterol/Iprat 2.5/0.5mg 3 Ml Ampul.Neb INHALE 3 ml RQ4H WHILE AWAKE SHARIF Administration Albuterol/Ipratropium 3 ml 01/21/21 04:56 Albuterol/Iprat 2.5/0.5mg 3 Ml Ampul.Neb INHALE RQ4H PRN Shortness of Breath/Wheezing Aripiprazole 5 mg 01/21/21 09:00 01/22/21 07:29 Aripiprazole 5 Mg Tablet PO 5 mg DAILY SHARIF Administration Buprenorphine/Naloxone 2 film 01/21/21 09:00 01/22/21 07:26 Buprenorphine/Naloxone 8/2 Mg Film SUBLINGUAL 2 film DAILY SHARIF Administration Bupropion HCl 300 mg 01/21/21 09:00 01/22/21 07:29 Bupropion Hcl Xl 300 Mg Tab.Er.24h PO 300 mg DAILY SHARIF Administration Bupropion HCl 150 mg 01/22/21 09:00 01/22/21 08:10 Bupropion Hcl Xl 150 Mg Tab.Er.24h PO 150 mg DAILY SHARIF Administration Clonidine HCl 0.1 mg 01/21/21 09:00 01/22/21 07:29 Clonidine Hcl 0.1 Mg Tablet PO 0.1 mg BID SHARIF Administration Protocol Cyclobenzaprine HCl 10 mg 01/21/21 04:52 01/22/21 08:12 Cyclobenzaprine Hcl 10 Mg Tablet PO 10 mg TID PRN Administration Muscle Spasm Docusate Sodium 100 mg 01/21/21 04:56 Docusate Sodium 100 Mg Capsule PO DAILY PRN Constipation Enoxaparin Sodium 40 mg 01/21/21 07:00 01/22/21 07:27 Enoxaparin Sodium 40 Mg/0.4 Ml Syringe SUBCUT 40 mg Q24H SHARIF Administration Furosemide 40 mg 01/21/21 09:00 01/22/21 07:28 Furosemide 40 Mg Tablet PO 40 mg DAILY SHARIF Administration Protocol Hydroxyzine HCl 50 mg 01/22/21 10:11 01/22/21 10:36 Hydroxyzine Hcl 25 Mg Tablet PO 25 mg Q8H PRN Administration Anxiety Ceftriaxone Sodium 1 gm/ 50 mls @ 100 mls/hr 01/21/21 22:00 01/21/21 22:57 Sodium Chloride IV Infused Q24H SHARIF Infusion Azithromycin 500 mg/ Sodium 250 mls @ 125 mls/hr 01/21/21 22:00 01/22/21 00:34 Chloride IV Infused Q24H SHARIF Infusion Lidocaine 1 patch 01/21/21 09:00 01/22/21 07:27 Lidocaine 4 % Patch Adh..Patch TRANSDERMA 1 patch DAILY SHARIF Administration Protocol Methylprednisolone Sodium Succinate 40 mg 01/21/21 05:00 01/22/21 04:24 Methylprednisolone Sod Succ 40 Mg/Ml Vial IVPUSH 40 mg Q12H SHARIF Administration Nicotine 14 mg 01/21/21 11:00 01/22/21 07:27 Nicotine 14 Mg Patch.Td24 TRANSDERMA 14 mg DAILY SHARIF Administration Omeprazole 20 mg 01/21/21 09:00 01/22/21 07:28 Omeprazole 20 Mg Capsule.Dr PO 20 mg DAILY SHARIF Administration Ondansetron HCl 4 mg 01/21/21 04:56 Ondansetron Hcl 4 Mg/2 Ml Vial IVPUSH Q8H PRN Nausea and Vomiting Paroxetine HCl 40 mg 01/21/21 09:00 01/22/21 07:29 Paroxetine Hcl 40 Mg Tablet PO 40 mg DAILY SHARIF Administration Pharmacy Consult 1 each 01/21/21 01:25 Consult Rx Perform Med Rec MISCELLANE ONCE PRN Consult order Sodium Chloride 3 ml 01/21/21 08:00 01/22/21 07:30 0.9 % Sodium Chloride Flush 3 Ml Syringe IVFLUSH 3 ml QSHIFT SHARIF Administration Spironolactone 25 mg 01/21/21 09:00 01/22/21 07:28 Spironolactone 25 Mg Tablet PO 25 mg DAILY SHARIF Administration Protocol Tamsulosin HCl 0.8 mg 01/21/21 09:00 01/22/21 07:28 Tamsulosin Hcl 0.4 Mg Capsule PO 0.8 mg DAILY SHARIF Administration Labs CBC & Chem 7: 01/23/21 04:49 01/23/21 04:49 Microbiology Microbiology Results: Microbiology 01/21/21 02:54 Blood - Venous Blood Culture - Preliminary No growth after 24 hours. 01/21/21 02:54 Blood - Venous Blood Culture - Preliminary No growth after 24 hours. Assessment and Plan (1) Community acquired pneumonia: Status: Acute (2) Sepsis: Status: Acute Assessment and Plan: 55-year-old male with past medical history of COPD who presents to the hospital with difficulty breathing cough as well as muscle spasm and back pain. 1.sepsis- secondary to community-acquired pneumonia has leukocytosis,, tachypnea seems to be resolved. lactic acid normal no hypertension continue him ceftriaxone /azithromycin day2. - follow cultures 2. community-acquired pneumonia:COVID-19 PCR negative - started on IV antibiotics - follow cultures 3. muscle spasm/ back pain: - secondary to above - lidocaine patch and muscle relaxant 4. COPD exacerbation - secondary to acute pneumonia - will start him on Solu-Medrol IV 40 b.i.d., DuoNeb p.r.n. and scheduled - antibiotics as above 5. acute hypoxic respiratory failure - also dropping to the 80s on ambulation most likely secondary to COPD as well as pneumonia - currently on 3 L of oxygen - treat pneumonia as above - wean off oxygen as tolerated 6.hypertension - stable - continue spironolactone, clonidine 7. CHF - no exacerbation - continue Lasix home dose
[2021-01-22] MEDS: Magnesium Hydrox/Alum Hydrox 30 ML ORAL.SUSP 15 ML PO (15:37)
[2021-01-22] MEDS: cefTRIAXone sodium 1 GM in 0.9 % Sodium Chloride 50 ML IV (21:44)
[2021-01-22] MEDS: Azithromycin 500 MG in 0.9 % Sodium Chloride 250 ML 125 MG IV (22:19)
[2021-01-22] MEDS: Throat Lozenge, Medicated LOZENGE 1 LOZENGE MUCOUS MEM (22:22)
[2021-01-22] MEDS: guaiFENesin DM 100/10/5 ML 5 ML SYRUP PO (22:22)
[2021-01-23] VITALS (13 sets, daily range): BP systolic 111–156; BP diastolic 82–100; PULSE 88–107; RESP 18–22; TEMP 35.5–36.6; O2SAT 88–97
[2021-01-23 05:12] LABS: Hematocrit 35.5 % (42-52); Hemoglobin 11.8 g/dl (14.0-18.0); Mean Corpuscular HGB Conc 33.2 g/dl (31.0-36.0); Mean Corpuscular Hemoglobin 29.3 pg (27.0-33.0); Mean Corpuscular Volume 88.1 fL (80-98); Mean Platelet Volume 9.9 fL (9.4-12.4); Platelet Count 116 X10*3/uL (160-400); Red Blood Count 4.03 X10*6/uL (4.60-5.80); Red Cell Distribution Width 15.5 % (11.0-16.0); White Blood Count 8.6 X10*3/uL (4.8-10.8)
[2021-01-23] MEDS: methylPREDNISolone Sod Succ 40 MG/ML VIAL IVPUSH ×2 (05:19→19:49)
[2021-01-23 05:40] LABS: Anion Gap 13 (12-20); Blood Urea Nitrogen 22 mg/dL (9-16); Calcium 9.2 mg/dL (8.4-10.2); Carbon Dioxide 28 mmol/L (22-29); Chloride 99 mmol/L (96-108); Creatinine Clr Calc Pharmacy 104.3; Estimated Glomerular Filt Rate > 60; Glucose Random 124 mg/dL (60-115); Sodium 136 mmol/L (135-145)
[2021-01-23] MEDS: 0.9 % Sodium Chloride Flush 3 ML SYRINGE IVFLUSH ×3 (07:17→21:42)
[2021-01-23] MEDS: ARIPiprazole 5 MG TABLET PO (07:18)
[2021-01-23] MEDS: Tamsulosin HCL 0.4 MG CAPSULE 0.8 MG PO (07:18)
[2021-01-23] MEDS: Nicotine 14 MG PATCH.TD24 TRANSDERMA (07:18)
[2021-01-23] MEDS: buPROPion HCl XL 300 MG TAB.ER.24H PO (07:18)
[2021-01-23] MEDS: Furosemide 40 MG TABLET PO (07:19)
[2021-01-23] MEDS: Buprenorphine/Naloxone 8/2 mg FILM 2 FILM SUBLINGUAL (07:19)
[2021-01-23] MEDS: Omeprazole 20 MG CAPSULE.DR PO (07:20)
[2021-01-23] MEDS: Enoxaparin Sodium 40 MG/0.4 ML SYRINGE SUBCUT (07:20)
[2021-01-23] MEDS: Spironolactone 25 MG TABLET PO (07:20)
[2021-01-23] MEDS: buPROPion HCl XL 150 MG TAB.ER.24H PO (07:20)
[2021-01-23] MEDS: cloNIDine HCL 0.1 MG TABLET PO ×2 (07:21→21:42)
[2021-01-23] MEDS: Lidocaine 4 % Patch ADH..PATCH 1 PATCH TRANSDERMA (07:21)
[2021-01-23] MEDS: polyethylene glycoL 3350 17 GM POWD.PACK PO (07:21)
[2021-01-23] MEDS: PARoxetine HCL 40 MG TABLET PO (07:21)
[2021-01-23] MEDS: Albuterol/Iprat 2.5/0.5MG 3 ML AMPUL.NEB INHALE ×4 (07:34→19:49)
--- NOTE | 2021-01-23 09:50 | P.CONPL_ITS ---
History of Present Illness History of Present Illness Consult date: 01/23/21 Requesting physician: Conrad Deras Reason for consult: dyspnea, cough and chest pain Chief complaint: CAP, SOPD Exacerbation Narrative: I have seen this gentleman this morning, for pulmonary consultation. Reviewed his history. Basically he has had cough with shortness of breath for the last 2 weeks or so. He denies having had any fever or chills. Also denies having any contact with anybody with respiratory infection. He has been mostly in the house. What brought him to the hospital was mainly the back pain aggravated by cough and then making him more short of breath. He stated that about a week ago he moved his refrigerator at home and may have pulled the back muscles. He stays mostly in the house, has been free of COVID infection. This gentleman is grossly obese, with a round face and short neck. He say is that he has been told that he may have sleep apnea. But he was never impressed with the symptoms and did not have any sleep study done so for. He also does not have any past history of bronchial asthma or recurrent respiratory infections, but has been told that he may have COPD. He had traumatic brain injury about 10 years ago and since then has been disabled and homebound. 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 He is being treated for chronic edema of the legs. BPH. GERD symptoms, and chronic anxiety. Denies any allergies. He has been a smoker throughout his adult life, still smokes about half pack of cigarettes a day. Review of Systems Review of Systems: Yes all other systems are reviewed and are negative Constitutional: Constitutional: Reports snoring ENT: Reports dizziness Cardiovascular: Cardiovascular: Denies chest pain, Denies irregular heart rhythm, Reports leg edema and Reports dyspnea (on exersion .) Respiratory: Respiratory: Reports cough, Reports pain with cough, Reports dyspnea (on exersion .), Reports snoring and Denies stridor Gastrointestinal: Gastrointestinal: Reports heartburn (treated with med.) Musculoskeletal: Musculoskeletal: Reports back pain Neurologic: Reports dizziness and Reports memory loss Psychiatric: Psychiatric: Reports anxiety and Reports memory loss Endocrine: Endocrine: Reports no additional endocrine complaints PMFSH Past Medical History Medical History (Updated 01/23/21 @ 10:05 by Willis Parra MD) Anxiety CHF (congestive heart failure) COPD (chronic obstructive pulmonary disease) COPD exacerbation Hypertension Obesity (BMI 35.0-39.9 without comorbidity) KATHYA (obstructive sleep apnea) TBI (traumatic brain injury) Surgical History Surgical History No significant past surgical history Social History Social History Household Members: None Housing: Apartment Housing Other:: Sober House Alcohol intake: never Smoking Status: Current every day smoker Tobacco Type: Cigarette Packs Per Day: 0.5 Cigarettes Per Day: 8 Smoked in Last 30 Days: Yes Patient Interested in Nicotine Replacement: Yes Patient Given Instructions on How to Stop Smoking: No Second Hand Smoke Exposure: Yes Use of substances other than those prescribed or required for medical reasons: No Substance Use Type: Former Substance User Currently Displaying Signs/Symptoms of Drug Intoxication Withdrawal: No Have you been hit, kicked, punched, or otherwise hurt by someone within the past year? If so, by whom?: No Is there a partner from a previous relationship who is making you feel unsafe now?: No Are you made to feel afraid or neglected: No Advance Directives: No Advance Directives Information Provided: No Do you have thoughts of harming others: None Do you have a plan to hurt others: No Plan Recently lost weight without trying: No Eating poorly because of decreased appetite: No Nutrition Risks: No Nutritional Risk Poor oral hygiene: Yes service: No Current occupational status: unemployed Meds Allergies Allergy/AdvReac Type Severity Reaction Status Date / Time No Known Allergies Allergy Unverified 05/22/20 19:42 [No Known Allergies*] Active Medications: Current Medications Generic Name Dose Route Start Last Admin Trade Name Freq PRN Reason Stop Dose Admin Acetaminophen 650 mg 01/21/21 04:56 01/22/21 09:43 Acetaminophen 325 Mg Tablet PO 650 mg Q6H PRN Administration Pain, Mild (Pain Scale 1-3) Albuterol/Ipratropium 3 ml 01/21/21 08:00 01/23/21 07:34 Albuterol/Iprat 2.5/0.5mg 3 Ml Ampul.Neb INHALE 3 ml RQ4H WHILE AWAKE SHARIF Administration Albuterol/Ipratropium 3 ml 01/21/21 04:56 01/22/21 23:53 Albuterol/Iprat 2.5/0.5mg 3 Ml Ampul.Neb INHALE 3 ml RQ4H PRN Administration Shortness of Breath/Wheezing Aripiprazole 5 mg 01/21/21 09:00 01/23/21 07:18 Aripiprazole 5 Mg Tablet PO 5 mg DAILY SHARIF Administration Benzocaine 1 lozenge 01/22/21 22:11 01/22/21 22:22 Throat Lozenge, Medicated Lozenge MUCOUS MEM 1 lozenge Q2H PRN Administration Sore Throat Buprenorphine/Naloxone 2 film 01/21/21 09:00 01/23/21 07:19 Buprenorphine/Naloxone 8/2 Mg Film SUBLINGUAL 2 film DAILY SHARIF Administration Bupropion HCl 300 mg 01/21/21 09:00 01/23/21 07:18 Bupropion Hcl Xl 300 Mg Tab.Er.24h PO 300 mg DAILY SHARIF Administration Bupropion HCl 150 mg 01/22/21 09:00 01/23/21 07:20 Bupropion Hcl Xl 150 Mg Tab.Er.24h PO 150 mg DAILY SHARIF Administration Clonidine HCl 0.1 mg 01/21/21 09:00 01/23/21 07:21 Clonidine Hcl 0.1 Mg Tablet PO 0.1 mg BID SHARIF Administration Protocol Cyclobenzaprine HCl 10 mg 01/21/21 04:52 01/22/21 15:40 Cyclobenzaprine Hcl 10 Mg Tablet PO 10 mg TID PRN Administration Muscle Spasm Docusate Sodium 100 mg 01/21/21 04:56 Docusate Sodium 100 Mg Capsule PO DAILY PRN Constipation Enoxaparin Sodium 40 mg 01/21/21 07:00 01/23/21 07:20 Enoxaparin Sodium 40 Mg/0.4 Ml Syringe SUBCUT 40 mg Q24H SHARIF Administration Furosemide 40 mg 01/21/21 09:00 01/23/21 07:19 Furosemide 40 Mg Tablet PO 40 mg DAILY SHARIF Administration Protocol Guaifenesin/Dextromethorphan 5 ml 01/22/21 22:11 01/22/21 22:22 Guaifenesin Dm 100/10/5 Ml 5 Ml Syrup PO 5 ml Q6H PRN Administration Cough Hydroxyzine HCl 50 mg 01/22/21 10:11 01/22/21 18:02 Hydroxyzine Hcl 25 Mg Tablet PO 50 mg Q8H PRN Administration Anxiety Ceftriaxone Sodium 1 gm/ 50 mls @ 100 mls/hr 01/21/21 22:00 01/22/21 22:29 Sodium Chloride IV Infused Q24H SHARIF Infusion Azithromycin 500 mg/ Sodium 250 mls @ 125 mls/hr 01/21/21 22:00 01/23/21 00:19 Chloride IV Infused Q24H SHARIF Infusion Lidocaine 1 patch 01/21/21 09:00 01/23/21 07:21 Lidocaine 4 % Patch Adh..Patch TRANSDERMA 1 patch DAILY SHARIF Administration Protocol Methylprednisolone Sodium Succinate 40 mg 01/21/21 05:00 01/23/21 05:19 Methylprednisolone Sod Succ 40 Mg/Ml Vial IVPUSH 40 mg Q12H SHARIF Administration Nicotine 14 mg 01/21/21 11:00 01/23/21 07:18 Nicotine 14 Mg Patch.Td24 TRANSDERMA 14 mg DAILY SHARIF Administration Omeprazole 20 mg 01/21/21 09:00 01/23/21 07:20 Omeprazole 20 Mg Capsule. PO 20 mg DAILY SHARIF Administration Ondansetron HCl 4 mg 01/21/21 04:56 Ondansetron Hcl 4 Mg/2 Ml Vial IVPUSH Q8H PRN Nausea and Vomiting Paroxetine HCl 40 mg 01/21/21 09:00 01/23/21 07:21 Paroxetine Hcl 40 Mg Tablet PO 40 mg DAILY SHARIF Administration Pharmacy Consult 1 each 01/21/21 01:25 Consult Rx Perform Med Rec MISCELLANE ONCE PRN Consult order Polyethylene Glycol 17 gm 01/22/21 15:00 01/23/21 07:21 Polyethylene Glycol 3350 17 Gm Powd.Pack PO 17 gm DAILY SHARIF Administration Sodium Chloride 3 ml 01/21/21 08:00 01/23/21 07:17 0.9 % Sodium Chloride Flush 3 Ml Syringe IVFLUSH 3 ml QSHIFT SHARIF Administration Spironolactone 25 mg 01/21/21 09:00 01/23/21 07:20 Spironolactone 25 Mg Tablet PO 25 mg DAILY SHARIF Administration Protocol Tamsulosin HCl 0.8 mg 01/21/21 09:00 01/23/21 07:18 Tamsulosin Hcl 0.4 Mg Capsule PO 0.8 mg DAILY SHARIF Administration Home Medications Medication Instructions Recorded Confirmed Last Taken Type aripiprazole 1 tab PO DAILY 01/21/21 01/21/21 Unknown History buprenorphine-naloxone [Suboxone] 2 strip SUBLINGUAL DAILY 01/21/21 01/21/21 Unknown History bupropion HCl 1 tab PO QAM 01/21/21 01/21/21 Unknown History bupropion HCl 1 tab PO QAM 01/21/21 01/21/21 Unknown History clonidine HCl 1 tab PO BID 01/21/21 01/21/21 Unknown History xryxjltjkyd-[id number] 1 puff INHALATION DAILY 01/21/21 01/21/21 Unknown History [Trelegy Ellipta] furosemide 1 tab PO DAILY 01/21/21 01/21/21 Unknown History hydroxyzine HCl 25 mg PO Q8H PRN 01/21/21 01/21/21 Unknown History ibuprofen 1 tab PO Q8H PRN 01/21/21 01/21/21 Unknown History nicotine [Nicotrol] 1 inh INHALATION DIRECTED PRN 01/21/21 01/21/21 Unknown History omeprazole 1 cap PO DAILY 01/21/21 01/21/21 Unknown History paroxetine HCl 1 tab PO QAM 01/21/21 01/21/21 Unknown History spironolactone 1 tab PO DAILY 01/21/21 01/21/21 Unknown History tamsulosin 2 cap PO DAILY 01/21/21 01/21/21 Unknown History Physical Exam Vital Signs: Vital Signs: Last Vital Signs Temp 96 F L 01/23/21 07:14 Pulse 93 01/23/21 07:34 Resp 22 H 01/23/21 07:14 BP 143/90 H 01/23/21 07:14 Pulse Ox 92 01/23/21 07:14 Body Mass Index 39.9 Const: Other: He is grossly obese is with very obvious a round face and very short and obese neck. General: no acute distress (but SOB . DURING CONVERSATION , OR ANY MOVEMENT ), alert and awake Orientation/consciousness: patient oriented x3 HENMT: Head: Yes normal to inspection General nose exam: No nasal polyps present and No nasal discharge present Face and sinus: Yes sinuses nontender Mouth: oropharynx abnormals (VERY NARROW AND CROWDED, MALLAMPATI CLASS 4) Throat: Yes posterior oropharynx normal Eyes: General: appearance normal, both eyes and all related structures Neck: Neck: Yes normal visual inspection, Yes no lymphadenopathy, Yes trachea midline, Yes no JVD and Yes other (SHORT AND OBESE, NECK CIRCUMFERENCE 19 IN) Thyroid: Thyroid normal Chest: Chest palpation & inspection: normal inspection of the chest, normal p alpation of entire chest wall and no tenderness Resp: Other: BREATH SOUNDS ARE QUITE DISTANT ESPECIALLY OVER THE BASILAR AREAS. A FEW INSPIRATORY CREPS HER HEARD OVER THE BASILAR AREAS ESPECIALLY ON THE RIGHT SIDE. NO WHEEZES OR RHONCHI Cardio: Palpation: PMI not normal (NOT PALPABLE) Rate: regular rate Rhythm: regular rhythm Heart sounds: no gallops and no murmurs GI: Palpation (GI): Soft to palpation, nontender, No hepatosplenomegaly present, no masses and Other GI palpation findings present (ABDOMEN IS OBESE AND PROTUBERANT) Auscultation: normal bowel sounds Back/Spine/Pelvis: Thoracic/Lumbar Spine: thoracic and lumbar spine normal to inspection and thoraco-lumbar spasm Skin: General skin exam: no rashes or lesions noted Neuro: General: patient oriented x3 and no focal motor deficits Cranial nerves: Yes CN's II-XII intact bilaterally Extrem: General: Yes normal to inspection, Yes no clubbing, cyanosis or edema, Yes no calf tenderness and No venous stasis dermatitis Psych: Speech and movement: Normal speech and movement present Results Laboratory Findings CBC and BMP: 01/23/21 04:49 01/23/21 04:49 ABG, PT/INR, D-dimer: PT/INR, D-dimer PT 13.8 SEC (10.8-13.0) H 01/21/21 02:24 INR 1.2 (0.9-1.1) H 01/21/21 02:24 Abnormal lab findings: Abnormal Labs 01/21/21 01/21/21 01/21/21 02:23 02:23 02:24 WBC 11.3 H RBC 4.14 L Hgb 12.2 L Hct 36.6 L Plt Count 131 L Immature Gran % (Auto) 0.6 H Neut % (Auto) 73.4 H Lymph % (Auto) 12.0 L Eos % (Auto) 9.5 H Lymph # (Auto) Eos # (Auto) 1.1 H Abs Immat Gran (auto) 0.07 H Absolute Neuts (auto) PT INR BUN 17 H Random Glucose 144 H Alkaline Phosphatase 170 H Lactate Dehydrogenase 335 H 01/21/21 01/22/21 01/22/21 02:24 04:28 04:28 WBC RBC 3.89 L Hgb 11.5 L Hct 34.1 L Plt Count 115 L Immature Gran % (Auto) 0.6 H Neut % (Auto) 86.8 H Lymph % (Auto) 8.4 L Eos % (Auto) Lymph # (Auto) 0.9 L Eos # (Auto) Abs Immat Gran (auto) 0.06 H Absolute Neuts (auto) 8.8 H PT 13.8 H INR 1.2 H BUN 21 H Random Glucose 139 H Alkaline Phosphatase Lactate Dehydrogenase 01/23/21 01/23/21 04:49 04:49 WBC RBC 4.03 L Hgb 11.8 L Hct 35.5 L Plt Count 116 L Immature Gran % (Auto) Neut % (Auto) Lymph % (Auto) Eos % (Auto) Lymph # (Auto) Eos # (Auto) Abs Immat Gran (auto) Absolute Neuts (auto) PT INR BUN 22 H Random Glucose 124 H Alkaline Phosphatase Lactate Dehydrogenase Coronavirus (COVID 2019): NEGATIVE Microbiology: Microbiology 01/21/21 02:54 Blood - Venous Blood Culture - Preliminary No growth after 48 hours. 01/21/21 02:54 Blood - Venous Blood Culture - Preliminary No growth after 48 hours. 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 CURRENTLY HE HAS BIBASILAR PNEUMONIA, COMMUNITY ACQUIRED. SHOULD BE TREATED WITH IV ANTIBIOTICS AND I AGREE WITH THE CURRENT REGIMEN CONSISTING OF IV AZITHROMYCIN AND ROCEPHIN. O2 SUPPLEMENTATION NEEDED. KIKE CRAWLEY Q 6 HOURS P.R.N.. 2- HIS THE UPPER BACK PAIN IS MOST LIKELY RELATED TO MUSCLE STRAIN, AND HE HE MAY HAVE CHRONIC BACK PROBLEM DUE TO HIS OBESITY. TREAT SYMPTOMATIC ALL. 3- I THINK THIS GENTLEMAN HAS TYPICAL PHYSICAL FEATURES SUGGESTING OBSTRUCTIVE SLEEP APNEA, HE WOULD NEED TO HAVE WORKUP AND MANAGEMENT FOR THIS OUTPATIENT. I DISCUSSED WITH HIM ABOUT THIS ISSUE. WE SHOULD DO VENOUS BLOOD GAS TO RULE OUT CO2 RETENTION PART OF HYPOVENTILATION SYNDROME. 4- HISTORY OF SMOKING, AND HE SHOULD BE STARTED ON SMOKING CESSATION PROGRAM. THANK YOU FOR ASKING ME TO SEE THIS PATIENT I WILL BE GLAD TO FOLLOW HIM ALONG. (2) Muscle spasm: Status: Acute Procedures Date of Service Date of Service: 01/23/21
[2021-01-23] MEDS: LORazepam 1 MG TABLET PO (10:04)
[2021-01-23] MEDS: Cyclobenzaprine HCl 10 MG TABLET PO (10:04)
[2021-01-23 10:44] LABS: VBG Base Excess 3.1 mmol/L; VBG HCO3 29 mmol/L (22-26); VBG pCO2 48 mmHg; VBG pH 7.38 (7.32-7.43)
[2021-01-23 10:54] LABS: Venous Blood Gas Refer to POC result
--- NOTE | 2021-01-23 13:22 | HO.PM.IMPN ---
Subjective Subjective Date of Service: 01/24/21 Interval History: copd , pneumonia Review of Systems Patient still short of breath, has cough but no fevers now denies any chest pain denies any nausea or vomiting or abdominal pain. Physical Exam Vital Signs: Vital Signs: Last Vital Signs Temp 98 F 01/23/21 11:02 Pulse 88 01/23/21 11:06 Resp 20 01/23/21 11:02 BP 111/82 01/23/21 11:02 Pulse Ox 91 L 01/23/21 11:02 Body Mass Index 39.9 physical exam: Constitutional: Not in acute distress. Cvs: rrr, [id number] , no murmur res: clear to auscultation ,no rhonchii or wheezing abd: no rebound or guarding ,nt, bs present. ext pulses present , no cyanosis neuro: axo3 , nonfocal. Objective Data Current Medications Generic Name Dose Route Start Last Admin Trade Name Freq PRN Reason Stop Dose Admin Acetaminophen 650 mg 01/21/21 04:56 01/22/21 09:43 Acetaminophen 325 Mg Tablet PO 650 mg Q6H PRN Administration Pain, Mild (Pain Scale 1-3) Albuterol/Ipratropium 3 ml 01/21/21 08:00 01/23/21 11:06 Albuterol/Iprat 2.5/0.5mg 3 Ml Ampul.Neb INHALE 3 ml RQ4H WHILE AWAKE SHARIF Administration Albuterol/Ipratropium 3 ml 01/21/21 04:56 01/22/21 23:53 Albuterol/Iprat 2.5/0.5mg 3 Ml Ampul.Neb INHALE 3 ml RQ4H PRN Administration Shortness of Breath/Wheezing Aripiprazole 5 mg 01/21/21 09:00 01/23/21 07:18 Aripiprazole 5 Mg Tablet PO 5 mg DAILY SHARIF Administration Benzocaine 1 lozenge 01/22/21 22:11 01/22/21 22:22 Throat Lozenge, Medicated Lozenge MUCOUS MEM 1 lozenge Q2H PRN Administration Sore Throat Buprenorphine/Naloxone 2 film 01/21/21 09:00 01/23/21 07:19 Buprenorphine/Naloxone 8/2 Mg Film SUBLINGUAL 2 film DAILY SHARIF Administration Bupropion HCl 300 mg 01/21/21 09:00 01/23/21 07:18 Bupropion Hcl Xl 300 Mg Tab.Er.24h PO 300 mg DAILY SHARIF Administration Bupropion HCl 150 mg 01/22/21 09:00 01/23/21 07:20 Bupropion Hcl Xl 150 Mg Tab.Er.24h PO 150 mg DAILY SHARIF Administration Clonidine HCl 0.1 mg 01/21/21 09:00 01/23/21 07:21 Clonidine Hcl 0.1 Mg Tablet PO 0.1 mg BID SHARIF Administration Protocol Cyclobenzaprine HCl 10 mg 01/21/21 04:52 01/23/21 10:04 Cyclobenzaprine Hcl 10 Mg Tablet PO 10 mg TID PRN Administration Muscle Spasm Docusate Sodium 100 mg 01/21/21 04:56 Docusate Sodium 100 Mg Capsule PO DAILY PRN Constipation Enoxaparin Sodium 40 mg 01/21/21 07:00 01/23/21 07:20 Enoxaparin Sodium 40 Mg/0.4 Ml Syringe SUBCUT 40 mg Q24H SHARIF Administration Furosemide 40 mg 01/21/21 09:00 01/23/21 07:19 Furosemide 40 Mg Tablet PO 40 mg DAILY SHARIF Administration Protocol Guaifenesin/Dextromethorphan 5 ml 01/22/21 22:11 01/22/21 22:22 Guaifenesin Dm 100/10/5 Ml 5 Ml Syrup PO 5 ml Q6H PRN Administration Cough Hydroxyzine HCl 50 mg 01/22/21 10:11 01/22/21 18:02 Hydroxyzine Hcl 25 Mg Tablet PO 50 mg Q8H PRN Administration Anxiety Ceftriaxone Sodium 1 gm/ 50 mls @ 100 mls/hr 01/21/21 22:00 01/22/21 22:29 Sodium Chloride IV Infused Q24H SHARIF Infusion Azithromycin 500 mg/ Sodium 250 mls @ 125 mls/hr 01/21/21 22:00 01/23/21 00:19 Chloride IV Infused Q24H SHARIF Infusion Lidocaine 1 patch 01/21/21 09:00 01/23/21 07:21 Lidocaine 4 % Patch Adh..Patch TRANSDERMA 1 patch DAILY SHARIF Administration Protocol Methylprednisolone Sodium Succinate 40 mg 01/21/21 05:00 01/23/21 05:19 Methylprednisolone Sod Succ 40 Mg/Ml Vial IVPUSH 40 mg Q12H SHARIF Administration Nicotine 14 mg 01/21/21 11:00 01/23/21 07:18 Nicotine 14 Mg Patch.Td24 TRANSDERMA 14 mg DAILY SHARIF Administration Omeprazole 20 mg 01/21/21 09:00 01/23/21 07:20 Omeprazole 20 Mg Capsule. PO 20 mg DAILY SHARIF Administration Ondansetron HCl 4 mg 01/21/21 04:56 Ondansetron Hcl 4 Mg/2 Ml Vial IVPUSH Q8H PRN Nausea and Vomiting Paroxetine HCl 40 mg 01/21/21 09:00 01/23/21 07:21 Paroxetine Hcl 40 Mg Tablet PO 40 mg DAILY SHARIF Administration Pharmacy Consult 1 each 01/21/21 01:25 Consult Rx Perform Med Rec MISCELLANE ONCE PRN Consult order Polyethylene Glycol 17 gm 01/22/21 15:00 01/23/21 07:21 Polyethylene Glycol 3350 17 Gm Powd.Pack PO 17 gm DAILY SHARIF Administration Sodium Chloride 3 ml 01/21/21 08:00 01/23/21 07:17 0.9 % Sodium Chloride Flush 3 Ml Syringe IVFLUSH 3 ml QSHIFT SHARIF Administration Spironolactone 25 mg 01/21/21 09:00 01/23/21 07:20 Spironolactone 25 Mg Tablet PO 25 mg DAILY SHARIF Administration Protocol Tamsulosin HCl 0.8 mg 01/21/21 09:00 01/23/21 07:18 Tamsulosin Hcl 0.4 Mg Capsule PO 0.8 mg DAILY SHARIF Administration Labs CBC & Chem 7: 01/24/21 07:10 01/23/21 04:49 Microbiology Microbiology Results: Microbiology 01/21/21 02:54 Blood - Venous Blood Culture - Preliminary No growth after 48 hours. 01/21/21 02:54 Blood - Venous Blood Culture - Preliminary No growth after 48 hours. Assessment and Plan (1) Community acquired pneumonia: Status: Acute (2) Sepsis: Status: Acute Assessment and Plan: 55-year-old male with past medical history of COPD who presents to the hospital with difficulty breathing cough as well as muscle spasm and back pain. 1.sepsis- secondary to community-acquired pneumonia has leukocytosis,, tachypnea seems to be resolved. lactic acid normal no hypertension continue him ceftriaxone /azithromycin day4. blood follow cultures neg@48hrs 2. community-acquired pneumonia:COVID-19 PCR negative - started on IV antibiotics 3. muscle spasm/ back pain: - secondary to above - lidocaine patch and hold muscle relaxant 4. has acute hypoxemic respiratory failure secondary to COPD exacerbation/ pneumonia - secondary to acute pneumonia - will start him on Solu-Medrol IV 40 b.i.d., DuoNeb p.r.n. and scheduled - antibiotics as above somewht confused but able to answer most of the questions- will hold his anxiety medications for now because that might be adding to confusion, also will hold off on muscle relaxant for the same reason. ABG noted- discuss the ICU,? constellation of finding initial chest x-ray shows ? question bilateral infiltrate, patient shortness of breath seems similar but sats are fluctuating- patient says has short of breath with little walking his initial BNP is 10, leukocytosis resolved has no fever ? question of IL D versus diffuse infiltrate will get CT chest without contrast REs panel 5. acute hypoxic respiratory failure-intiallyalso dropping to the 80s on ambulation most likely secondary to COPD as well as pneumonia -sats seems better 90's currently on 3 L of oxygen - treat pneumonia as above - wean off oxygen as tolerated 6.hypertension - stable - continue spironolactone, clonidine 7. CHF - no exacerbation - continue Lasix home dose (3) Muscle spasm: Status: Acute
[2021-01-23] MEDS: guaiFENesin DM 100/10/5 ML 5 ML SYRUP PO (13:37)
--- NOTE | 2021-01-23 13:51 | MHC.CM.PN ---
Addendum entered by Denise Pierre RN 01/23/21 14:01: CLARIFICATION, PT WILL NEED [facility] SHUTTLE VS [facility] FOR TRANSPORT TO [facility]. Original Note: IMM 01/23/21, EMR REVIEWED, PT CONT'S TO HAVE SOB, PT SEEN BY PULMONOLGY, PT WILL CONT CURRENT IV ABX, IV SOLUMEDROL 4OMG BID, NO PLAN FOR D/C TODAY, POSSIBLE D/C OVER WEEKEND HOME SELF-CARE W/OUPT FOLLOW-UP, FAMILY FOR TRANSPORT.
[2021-01-23 13:52] LABS: ABG Base Excess 4.3 mmol/L; ABG HCO3 27 mmol/L (22-26); ABG pCO2 36 mmHg (32-45); ABG pCO2 TC 35 mmHg (32-45); ABG pH 7.48 (7.35-7.45); ABG pH TC 7.49 (7.35-7.45)
[2021-01-23 13:55] LABS: ABG Refer to POC result
[2021-01-23 16:53] LABS: ABG Base Excess 3.7 mmol/L; ABG HCO3 26 mmol/L (22-26); ABG pCO2 34 mmHg (32-45); ABG pCO2 TC 33 mmHg (32-45); ABG pH 7.49 (7.35-7.45); ABG pO2 54 mmHg (83-108); ABG pO2 TC 52 (83-108)
[2021-01-23 16:54] LABS: VBG pO2 63 mmHg
[2021-01-23 16:56] LABS: ABG pO2 52 mmHg (83-108)
[2021-01-23 17:09] LABS: Carbon Monoxide POC 0.4 %
--- NOTE | 2021-01-23 18:56 | P.EN_ITS ---
Event Note Date of Service: 01/24/21 Event Note: I was called by Dr. Deras asking for my opinion in the case off Mr. Valenzuela, and why he is not improving. This is a remote note. I reviewed his chart, including the H&P, the labwork, and his CXR. My main concern is that, at least on my display monitor, his CXR does not at all look like lobar pneumonia. The radiologist's reading is incorrect. Rather, he has diffuse bilateral patchy alveolar and interstitial infiltrates, with the m ost consolidation in his RLL. Such a pattern is inconsistent with typical bacterial pneumonia, in that the patient is not febrile, he's not that toxic, his WBC wasn't very impressive, he's not that hypoxemic (Sat'ing 90% on room air on presentation to the hospital with that CXR), his lactate was normal and he was never septic, and he's not critically ill. If that CXR was 2? to typical bacterial pneumonia, he'd have been much, much sicker, much more hypoxemic, and certainly intubated. The DDx of his CXR includes atypical pneumonia (ie. mycoplasma, legionella, chlamydia), viral pneumonia, and pulmonary edema (altho his BNP was low on admission, which pretty much rules out CHF). I suggest a noncontrast chest CT (which I would have done on admission, given the diffuse nature of the infiltrates) and a more sensitive COVID test if indicated by the CT (altho the clinical course does not sound like COVID to me). In regards to treatment, a number of things are notable: The patient has alr je been getting steroids (for a presumed COPD exacerbation); he's been getting Zithromax, which is usually highly effective tx for atypical pneumonia; and his pCO2 is low, which means that he's able to handle his current WOB. Further w/u and tx would follow from the chest CT. I might also suggest an ID consult, and an echo to make doubly sure that this is not CHF. I would also do a VBG with his regular morning labs every day when there is any concern about his WOB. (There is no indication for transfer to intensive care at this time.) Time (including extended telephone d/w Dr. Deras, further d/w PA Phillip, and full chart review): 50 min ([id number]) ADDENDUM: At 21:30, I discussed the CT (which shows diffused bilat infiltrates, as expected) with Dr. Reza, and asked him to call the hospitalist consulting project director and discuss the ramifications.
[2021-01-23 21:41] LABS: ABG Refer to POC result
[2021-01-23] MEDS: cefTRIAXone sodium 1 GM in 0.9 % Sodium Chloride 50 ML IV (21:42)
[2021-01-23] MEDS: hydrOXYzine HCL 25 MG TABLET 50 MG PO (21:48)
--- NOTE | 2021-01-23 22:06 | P.EN_ITS ---
Event Note Date of Service: 01/23/21 Event Note: Bilateral patchy peribronchovascular groundglass infiltrates, card iomegally, no leukocytosis, hypoxemia with respiratory alkalosis, and low procalcitonin together with underlying morbid obesity and likely sleep apnea is more consistent with right-sided congestive heart failure than fulminant community acquired bacterial pneumonia or COPD exacerbation. Lack of improvement on azithromycin argues against atypical pneumonia. Would suggest considering further cardiac evaluation with 2d echo with contrast and increased IV diuresis.
[2021-01-23] MEDS: Azithromycin 500 MG in 0.9 % Sodium Chloride 250 ML 125 MG IV (22:31)
[2021-01-23 22:53] LABS: Adenovirus PCR Not Detected (Not Detect.); Bordetella parapertussis PCR Not Detected (Not Detect.); Bordetella pertussis PCR Not Detected (Not Detect.); Chlamydia pneumoniae PCR Not Detected (Not Detect.); Coronavirus 229E PCR Not Detected (Not Detect.); Coronavirus HKU1 PCR Not Detected (Not Detect.); Coronavirus NL63 PCR Not Detected (Not Detect.); Coronavirus OC43 PCR Not Detected (Not Detect.); Human metapneumovirus PCR Not Detected (Not Detect.); Influenza A PCR Not Detected (Not Detect.); Influenza B PCR Not Detected (Not Detect.); Mycoplasma pneumoniae PCR Not Detected (Not Detect.); Parainfluenza 1 PCR Not Detected (Not Detect.); Parainfluenza 2 PCR Not Detected (Not Detect.); Parainfluenza 3 PCR Not Detected (Not Detect.); Parainfluenza 4 PCR Not Detected (Not Detect.); RSV PCR Not Detected (Not Detect.); Rhino/Enterovirus PCR Not Detected (Not Detect.); SARS-CoV-2 PCR Not Detected (Not Detect.)
[2021-01-24] VITALS (9 sets, daily range): BP systolic 135–163; BP diastolic 83–104; PULSE 93–109; RESP 19–24; TEMP 36.1–37.1; O2SAT 90–95
[2021-01-24] MEDS: hydrOXYzine HCL 25 MG TABLET 50 MG PO ×2 (06:23→17:07)
[2021-01-24] MEDS: methylPREDNISolone Sod Succ 40 MG/ML VIAL IVPUSH (06:23)
[2021-01-24] MEDS: Enoxaparin Sodium 40 MG/0.4 ML SYRINGE SUBCUT (06:23)
[2021-01-24] MEDS: Albuterol/Iprat 2.5/0.5MG 3 ML AMPUL.NEB INHALE ×3 (07:35→19:58)
[2021-01-24 07:50] LABS: Red Cell Distribution Width 15.3 % (11.0-16.0)
[2021-01-24 07:52] LABS: Mean Corpuscular HGB Conc 33.3 g/dl (31.0-36.0); Mean Corpuscular Hemoglobin 29.1 pg (27.0-33.0); Mean Corpuscular Volume 87.4 fL (80-98); Mean Platelet Volume 9.8 fL (9.4-12.4); Platelet Count 132 X10*3/uL (160-400); Red Blood Count 4.12 X10*6/uL (4.60-5.80)
--- NOTE | 2021-01-24 08:05 | P.PNIM_ITS ---
Subjective Subjective Date of Service: 01/24/21 Interval History: Acute hypoxemic respiratory failure -probably secondary to interstitial pneumonitis Review of Systems Patient is still short of breath but with a Ventimask 40% oxygen he is feeling more comfortable and talking Any cough or sputum Says his confusion is better Denies any abdominal pain or nausea or vomiting or fever or chills. Denies any weakness or numbness. Physical Exam Vital Signs: Vital Signs: Last Vital Signs Temp 96.9 F 01/24/21 04:00 Pulse 94 01/24/21 07:36 Resp 20 01/24/21 04:00 BP 153/90 H 01/24/21 04:00 Pulse Ox 92 01/24/21 04:00 Body Mass Index 39.9 Physical exam: Constitutional: still sob heent: eyes: anicteric , no discharge. Cvs: rrr, [id number] , no murmur res: abd: no rebound or guarding ,nt, bs present. ext pulses present , no cyanosis neuro: axo3 , nonfocal. Objective Data Current Medications Generic Name Dose Route Start Last Admin Trade Name Freq PRN Reason Stop Dose Admin Acetaminophen 650 mg 01/21/21 04:56 01/22/21 09:43 Acetaminophen 325 Mg Tablet PO 650 mg Q6H PRN Administration Pain, Mild (Pain Scale 1-3) Albuterol/Ipratropium 3 ml 01/21/21 08:00 01/24/21 07:35 Albuterol/Iprat 2.5/0.5mg 3 Ml Ampul.Neb INHALE 3 ml RQ4H WHILE AWAKE SHARIF Administration Albuterol/Ipratropium 3 ml 01/21/21 04:56 01/22/21 23:53 Albuterol/Iprat 2.5/0.5mg 3 Ml Ampul.Neb INHALE 3 ml RQ4H PRN Administration Shortness of Breath/Wheezing Aripiprazole 5 mg 01/21/21 09:00 01/23/21 07:18 Aripiprazole 5 Mg Tablet PO 5 mg DAILY SHARIF Administration Benzocaine 1 lozenge 01/22/21 22:11 01/22/21 22:22 Throat Lozenge, Medicated Lozenge MUCOUS MEM 1 lozenge Q2H PRN Administration Sore Throat Buprenorphine/Naloxone 2 film 01/21/21 09:00 01/23/21 07:19 Buprenorphine/Naloxone 8/2 Mg Film SUBLINGUAL 2 film DAILY SHARIF Administration Bupropion HCl 300 mg 01/21/21 09:00 01/23/21 07:18 Bupropion Hcl Xl 300 Mg Tab.Er.24h PO 300 mg DAILY SHARIF Administration Bupropion HCl 150 mg 01/22/21 09:00 01/23/21 07:20 Bupropion Hcl Xl 150 Mg Tab.Er.24h PO 150 mg DAILY SHARIF Administration Clonidine HCl 0.1 mg 01/21/21 09:00 01/23/21 21:42 Clonidine Hcl 0.1 Mg Tablet PO 0.1 mg BID SHARIF Administration Protocol Cyclobenzaprine HCl 10 mg 01/21/21 04:52 01/23/21 10:04 Cyclobenzaprine Hcl 10 Mg Tablet PO 10 mg TID PRN Administration Muscle Spasm Docusate Sodium 100 mg 01/21/21 04:56 Docusate Sodium 100 Mg Capsule PO DAILY PRN Constipation Enoxaparin Sodium 40 mg 01/21/21 07:00 01/24/21 06:23 Enoxaparin Sodium 40 Mg/0.4 Ml Syringe SUBCUT 40 mg Q24H SHARIF Administration Furosemide 40 mg 01/24/21 09:00 Furosemide 40 Mg/4 Ml Vial IVPUSH BID@0900,1800 SHARIF Protocol Guaifenesin/Dextromethorphan 5 ml 01/22/21 22:11 01/23/21 13:37 Guaifenesin Dm 100/10/5 Ml 5 Ml Syrup PO 5 ml Q6H PRN Administration Cough Hydroxyzine HCl 50 mg 01/22/21 10:11 01/24/21 06:23 Hydroxyzine Hcl 25 Mg Tablet PO 50 mg Q8H PRN Administration Anxiety Ceftriaxone Sodium 1 gm/ 50 mls @ 100 mls/hr 01/21/21 22:00 01/23/21 22:57 Sodium Chloride IV Infused Q24H SHARIF Infusion Azithromycin 500 mg/ Sodium 250 mls @ 125 mls/hr 01/21/21 22:00 01/24/21 01:08 Chloride IV Infused Q24H SHARIF Infusion Lidocaine 1 patch 01/21/21 09:00 01/23/21 07:21 Lidocaine 4 % Patch Adh..Patch TRANSDERMA 1 patch DAILY SHARIF Administration Protocol Methylprednisolone Sodium Succinate 40 mg 01/21/21 05:00 01/24/21 06:23 Methylprednisolone Sod Succ 40 Mg/Ml Vial IVPUSH 40 mg Q12H SHARIF Administration Nicotine 14 mg 01/21/21 11:00 01/23/21 07:18 Nicotine 14 Mg Patch.Td24 TRANSDERMA 14 mg DAILY SHARIF Administration Omeprazole 20 mg 01/21/21 09:00 01/23/21 07:20 Omeprazole 20 Mg Capsule.Dr PO 20 mg DAILY SHARIF Administration Ondansetron HCl 4 mg 01/21/21 04:56 Ondansetron Hcl 4 Mg/2 Ml Vial IVPUSH Q8H PRN Nausea and Vomiting Paroxetine HCl 40 mg 01/21/21 09:00 01/23/21 07:21 Paroxetine Hcl 40 Mg Tablet PO 40 mg DAILY SHARIF Administration Pharmacy Consult 1 each 01/21/21 01:25 Consult Rx Perform Med Rec MISCELLANE ONCE PRN Consult order Polyethylene Glycol 17 gm 01/22/21 15:00 01/23/21 07:21 Polyethylene Glycol 3350 17 Gm Powd.Pack PO 17 gm DAILY SHARIF Administration Sodium Chloride 3 ml 01/21/21 08:00 01/23/21 21:42 0.9 % Sodium Chloride Flush 3 Ml Syringe IVFLUSH 3 ml QSHIFT SHARIF Administration Spironolactone 25 mg 01/21/21 09:00 01/23/21 07:20 Spironolactone 25 Mg Tablet PO 25 mg DAILY SHARIF Administration Protocol Tamsulosin HCl 0.8 mg 01/21/21 09:00 01/23/21 07:18 Tamsulosin Hcl 0.4 Mg Capsule PO 0.8 mg DAILY SHARIF Administration Labs CBC & Chem 7: 01/24/21 07:10 01/24/21 07:10 Microbiology Microbiology Results: Microbiology 01/21/21 02:54 Blood - Venous Blood Culture - Preliminary No growth after 48 hours. 01/21/21 02:54 Blood - Venous Blood Culture - Preliminary No growth after 48 hours. Assessment and Plan (1) Hypoxia: Status: Acute (2) Acute interstitial pneumonitis: Status: Acute Assessment and Plan: 55-year-old male with past medical history of COPD who presents to the hospital with difficulty breathing cough as well as muscle spasm and back pain. 1. Initially thought to be sepsis- secondary to community-acquired pneumonia- Patient was initially treated for pneumonia with IV antibiotic-subsequently patient was progressively getting short of breath - acute hypoxemic respiratory failure secondary to interstitial pneumonitis. We will stop antibiotic, adjust high-dose steroids Solu-Medrol 80 mg t.i.d., oxygen support adjust high-flow if needed., continue to monitor Patient was seen by Pulmonary and ICU today and recommended above management. adjust ppi bid 2. muscle spasm/ back pain: - secondary to above - lidocaine patch and hold muscle relaxant. 3. has acute hypoxemic respiratory failure secondary to COPD exacerbation/ pneumonia Discussed with pulmonary above is less likely issue at this point, patient pro bably has interstitial pneumonitis Please see above. 4.hypertension - stable - continue spironolactone, clonidine 5. CHF - no exacerbation - continue Lasix home dose. dvt prophylax : lovenox
[2021-01-24 08:20] LABS: Anion Gap 14 (12-20); Blood Urea Nitrogen 24 mg/dL (9-16); Calcium 9.3 mg/dL (8.4-10.2); Carbon Dioxide 27 mmol/L (22-29); Chloride 100 mmol/L (96-108); Creatinine Clr Calc Pharmacy 104.3; Estimated Glomerular Filt Rate > 60; Glucose Random 152 mg/dL (60-115); Potassium 4.1 mmol/L (3.3-5.1); Sodium 137 mmol/L (135-145)
[2021-01-24] MEDS: Furosemide 40 MG/4 ML VIAL IVPUSH (09:42)
[2021-01-24] MEDS: 0.9 % Sodium Chloride Flush 3 ML SYRINGE IVFLUSH ×3 (09:43→23:53)
[2021-01-24] MEDS: Lidocaine 4 % Patch ADH..PATCH 1 PATCH TRANSDERMA (09:43)
[2021-01-24] MEDS: cloNIDine HCL 0.1 MG TABLET PO ×2 (09:44→20:07)
[2021-01-24] MEDS: Tamsulosin HCL 0.4 MG CAPSULE 0.8 MG PO (09:45)
[2021-01-24] MEDS: Omeprazole 20 MG CAPSULE.DR PO ×2 (09:45→17:07)
[2021-01-24] MEDS: polyethylene glycoL 3350 17 GM POWD.PACK PO (09:45)
[2021-01-24] MEDS: Spironolactone 25 MG TABLET PO (09:45)
[2021-01-24] MEDS: PARoxetine HCL 40 MG TABLET PO (09:45)
[2021-01-24] MEDS: Buprenorphine/Naloxone 8/2 mg FILM 2 FILM SUBLINGUAL (09:46)
[2021-01-24] MEDS: ARIPiprazole 5 MG TABLET PO (09:47)
[2021-01-24] MEDS: Nicotine 14 MG PATCH.TD24 TRANSDERMA (09:47)
--- NOTE | 2021-01-24 10:05 | PM.EVENT ---
Event Note Date of Service: 01/25/21 Event Note: Dr. Deras called me this morning and asked me to take a look at Mr. Valenzuela. I went up to see him in room 362. See my note from last night. The patient is breathing easy with respiratory rate of about 20, sat is now low 90s on 40% Venti mask. No increase in WOB or access musc use. The patient has a large head and no neck. He is well appearing and talks easily. Thoroughly nontoxic. No visible JVD. He has absolutely no edema. I did not hear the patient cough once while I was visiting him. The resp virus panel PCRs were negative, including SARS COV 2. IMPRESSION: Clinically and roentgenographically, the patient unequivocally does not have typical bacterial pneumonia. Clinically, and by the fact that he had no response to Zithromax, he probably also does not have atypical bacterial pneumonia (ie. mycoplasma, etc.). Therefore, there is no indication for abx, and the ceftriaxone and Zithromax should be d/c'd. The CT has more a ground glass appearance than a pulmonary edema look. The fact that he has not an ounce of edema militates against right heart failure, altho I have no doubt that he has KATHYA, possibly very severe KATHYA (judging by his head and neck habitus), and may well have cor pulmonale on that basis. Regardless, and the main issue, is that his pulmonary infiltrates remain unexplained. Furthermore, his oxygenation is worsening, despite solumedrol 40 mg bid. The question is, should his steroids be increased, and does he need a bronchoscopy and/or some kind of tissue diagnosis. The pulmonary consult should weigh in on those issues. I spoke with Dr. Parra and he will review the CT scan. In the meantime, I would suggest switching him to HFNC 60L/40%, and then tapering FiO2 as able. (No indication for ICU transfer at this time.) ADDENDUM at 11:15: Discussed with Dr. Parra again. In his opinion, the chest CT shows interstitial pneumonitis. He raised the poss of allergic interstitial pneumonitis. Interestingly, the patient's eosinophil count on admission was high. Dr. Parra suggested raising the Solu-Medrol dose to 80 mg tid and discontinuing antibiotics. He does not think a bronchoscopy is indicated. Discussed further w Dr. Deras. Time: 50+ min. ([id number].)
--- NOTE | 2021-01-24 10:22 | P.CONCA_ITS ---
History of Present Illness History of Present Illness Date of Service: 01/24/21 Requesting physician: Conrad Deras Consult reason: shortness of breath and other (Hypoxic respiratory failure, question CHF) Chief complaint: CAP, SOPD Exacerbation Narrative: I was requested to see Yovani in cardiology consultation today for persistent hypoxemia. He is a 55-year-old male with limited historian due to his traumatic brain injury admitted 3 days ago with worsening shortness of breath, wheezing, dry cough. Patient did not have any abdominal distention, leg swelling, orthopnea, PND. He also has muscle spasm in the lower thoracic cage and upper abdominal area. He got very anxious and came to the hospital. In the hospital he was noted to have initially reported as lobar pneumonia. Subsequently has been evaluated by critical care because of persistent hypoxemia and was felt that he had more diffuse alveolar process and possibly alternative form of pneumonia such as atypical pneumonia. He has been getting IV antibiotics as well as steroids. His initial BNP was less than 10. Due to persistent hypoxemia there is a question raised about congestive heart failure based on his radiologic findings. Patient says about 15 years ago he had a balloon angioplasty perform, unknown vessel done at [facility] for chest pain. Since then he has not had any recurrent chest pain. There is also in the history history of congestive heart failure, however he does not recall ever being told that he has congestive heart failure however he is on at home Lasix and spironolactone. He was started this morning on Lasix 40 mg IV b.i.d.. He denies any palpitations, lightheadedness, loss of consciousness. No fever or chills. He was told that he has sleep apnea but is currently not using any CPAP therapy Review of Systems Constitutional: Constitutional: Denies chills and Denies fever(s) Cardiovascular: Cardiovascular: Denies chest pain, Denies rapid heart rate, Denies leg edema, Denies lightheadedness, Denies palpitations and Reports dyspnea on exertion Respiratory: Respiratory: Denies cough and Reports dyspnea on exertion Gastrointestinal: Gastrointestinal: Reports no additional gastrointestinal complaints Neurologic: Reports system reviewed and no additional complaints, except as documented Psychiatric: Psychiatric: Reports anxiety Endocrine: Endocrine: Denies palpitations Hematologic/Lymphatic: Hematologic/Lymphatic: Reports no additional hematologic/lymphatic complaints PMFSH Past Medical History Medical History (Updated 01/24/21 @ 10:55 by Ren Reina MD) Acute interstitial pneumonitis Anxiety ARDS (adult respiratory distress syndrome) ARDS (adult respiratory distress syndrome) CHF (congestive heart failure) COPD (chronic obstructive pulmonary disease) COPD exacerbation Hypertension Obesity (BMI 35.0-39.9 without comorbidity) KATHYA (obstructive sleep apnea) TBI (traumatic brain injury) Surgical History Surgical History No significant past surgical history Social History Social History Household Members: None Housing: Apartment Housing Other:: Sober House Alcohol intake: never Smoking Status: Current every day smoker Tobacco Type: Cigarette Packs Per Day: 0.5 Cigarettes Per Day: 8 Smoked in Last 30 Days: Yes Patient Interested in Nicotine Replacement: Yes Patient Given Instructions on How to Stop Smoking: No Second Hand Smoke Exposure: Yes Use of substances other than those prescribed or required for medical reasons: No Substance Use Type: Former Substance User Currently Displaying Signs/Symptoms of Drug Intoxication Withdrawal: No Have you been hit, kicked, punched, or otherwise hurt by someone within the past year? If so, by whom?: No Is there a partner from a previous relationship who is making you feel unsafe now?: No Are you made to feel afraid or neglected: No Advance Directives: No Advance Directives Information Provided: No Do you have thoughts of harming others: None Do you have a plan to hurt others: No Plan Recently lost weight without trying: No Eating poorly because of decreased appetite: No Nutrition Risks: No Nutritional Risk Poor oral hygiene: Yes service: No Current occupational status: unemployed Meds Allergies Allergy/AdvReac Type Severity Reaction Status Date / Time No Known Allergies Allergy Unverified 05/22/20 19:42 [No Known Allergies*] Active Medications: Current Medications Generic Name Dose Route Start Last Admin Trade Name Freq PRN Reason Stop Dose Admin Acetaminophen 650 mg 01/21/21 04:56 01/22/21 09:43 Acetaminophen 325 Mg Tablet PO 650 mg Q6H PRN Administration Pain, Mild (Pain Scale 1-3) Albuterol/Ipratropium 3 ml 01/21/21 08:00 01/24/21 07:35 Albuterol/Iprat 2.5/0.5mg 3 Ml Ampul.Neb INHALE 3 ml RQ4H WHILE AWAKE SHARIF Administration Albuterol/Ipratropium 3 ml 01/21/21 04:56 01/22/21 23:53 Albuterol/Iprat 2.5/0.5mg 3 Ml Ampul.Neb INHALE 3 ml RQ4H PRN Administration Shortness of Breath/Wheezing Aripiprazole 5 mg 01/21/21 09:00 01/24/21 09:47 Aripiprazole 5 Mg Tablet PO 5 mg DAILY SHARIF Administration Benzocaine 1 lozenge 01/22/21 22:11 01/22/21 22:22 Throat Lozenge, Medicated Lozenge MUCOUS MEM 1 lozenge Q2H PRN Administration Sore Throat Buprenorphine/Naloxone 2 film 01/21/21 09:00 01/24/21 09:46 Buprenorphine/Naloxone 8/2 Mg Film SUBLINGUAL 2 film DAILY SHARIF Administration Bupropion HCl 300 mg 01/21/21 09:00 01/23/21 07:18 Bupropion Hcl Xl 300 Mg Tab.Er.24h PO 300 mg DAILY SHARIF Administration Bupropion HCl 150 mg 01/22/21 09:00 01/23/21 07:20 Bupropion Hcl Xl 150 Mg Tab.Er.24h PO 150 mg DAILY SHARIF Administration Clonidine HCl 0.1 mg 01/21/21 09:00 01/24/21 09:44 Clonidine Hcl 0.1 Mg Tablet PO 0.1 mg BID SHARIF Administration Protocol Cyclobenzaprine HCl 10 mg 01/21/21 04:52 01/23/21 10:04 Cyclobenzaprine Hcl 10 Mg Tablet PO 10 mg TID PRN Administration Muscle Spasm Docusate Sodium 100 mg 01/21/21 04:56 Docusate Sodium 100 Mg Capsule PO DAILY PRN Constipation Enoxaparin Sodium 40 mg 01/21/21 07:00 01/24/21 06:23 Enoxaparin Sodium 40 Mg/0.4 Ml Syringe SUBCUT 40 mg Q24H SHARIF Administration Furosemide 40 mg 01/24/21 09:00 01/24/21 09:42 Furosemide 40 Mg/4 Ml Vial IVPUSH 40 mg BID@0900,1800 SHARIF Administration Protocol Guaifenesin/Dextromethorphan 5 ml 01/22/21 22:11 01/23/21 13:37 Guaifenesin Dm 100/10/5 Ml 5 Ml Syrup PO 5 ml Q6H PRN Administration Cough Hydroxyzine HCl 50 mg 01/22/21 10:11 01/24/21 06:23 Hydroxyzine Hcl 25 Mg Tablet PO 50 mg Q8H PRN Administration Anxiety Ceftriaxone Sodium 1 gm/ 50 mls @ 100 mls/hr 01/21/21 22:00 01/23/21 22:57 Sodium Chloride IV Infused Q24H SHARIF Infusion Azithromycin 500 mg/ Sodium 250 mls @ 125 mls/hr 01/21/21 22:00 01/24/21 01:08 Chloride IV Infused Q24H SHARIF Infusion Lidocaine 1 patch 01/21/21 09:00 01/24/21 09:43 Lidocaine 4 % Patch Adh..Patch TRANSDERMA 1 patch DAILY SHARIF Administration Protocol Methylprednisolone Sodium Succinate 40 mg 01/21/21 05:00 01/24/21 06:23 Methylprednisolone Sod Succ 40 Mg/Ml Vial IVPUSH 40 mg Q12H SHARIF Administration Nicotine 14 mg 01/21/21 11:00 01/24/21 09:47 Nicotine 14 Mg Patch.Td24 TRANSDERMA 14 mg DAILY SHARIF Administration Omeprazole 20 mg 01/21/21 09:00 01/24/21 09:45 Omeprazole 20 Mg Capsule.Dr PO 20 mg DAILY SHARIF Administration Ondansetron HCl 4 mg 01/21/21 04:56 Ondansetron Hcl 4 Mg/2 Ml Vial IVPUSH Q8H PRN Nausea and Vomiting Paroxetine HCl 40 mg 01/21/21 09:00 01/24/21 09:45 Paroxetine Hcl 40 Mg Tablet PO 40 mg DAILY SHARIF Administration Pharmacy Consult 1 each 01/21/21 01:25 Consult Rx Perform Med Rec MISCELLANE ONCE PRN Consult order Polyethylene Glycol 17 gm 01/22/21 15:00 01/24/21 09:45 Polyethylene Glycol 3350 17 Gm Powd.Pack PO 17 gm DAILY SHARIF Administration Sodium Chloride 3 ml 01/21/21 08:00 01/24/21 09:43 0.9 % Sodium Chloride Flush 3 Ml Syringe IVFLUSH 3 ml QSHIFT SHARIF Administration Spironolactone 25 mg 01/21/21 09:00 01/24/21 09:45 Spironolactone 25 Mg Tablet PO 25 mg DAILY SHARIF Administration Protocol Tamsulosin HCl 0.8 mg 01/21/21 09:00 01/24/21 09:45 Tamsulosin Hcl 0.4 Mg Capsule PO 0.8 mg DAILY SHARIF Administration Home Medications Medication Instructions Recorded Confirmed Last Taken Type aripiprazole 1 tab PO DAILY 01/21/21 01/21/21 Unknown History buprenorphine-naloxone [Suboxone] 2 strip SUBLINGUAL DAILY 01/21/21 01/21/21 Unknown History bupropion HCl 1 tab PO QAM 01/21/21 01/21/21 Unknown History bupropion HCl 1 tab PO QAM 01/21/21 01/21/21 Unknown History clonidine HCl 1 tab PO BID 01/21/21 01/21/21 Unknown History ohzeagwrjnp-njmfweakx-xhismdra 1 puff INHALATION DAILY 01/21/21 01/21/21 Unknown History [Trelegy Ellipta] furosemide 1 tab PO DAILY 01/21/21 01/21/21 Unknown History hydroxyzine HCl 25 mg PO Q8H PRN 01/21/21 01/21/21 Unknown History ibuprofen 1 tab PO Q8H PRN 01/21/21 01/21/21 Unknown History nicotine [Nicotrol] 1 inh INHALATION DIRECTED PRN 01/21/21 01/21/21 Unknown History omeprazole 1 cap PO DAILY 01/21/21 01/21/21 Unknown History paroxetine HCl 1 tab PO QAM 01/21/21 01/21/21 Unknown History spironolactone 1 tab PO DAILY 01/21/21 01/21/21 Unknown History tamsulosin 2 cap PO DAILY 01/21/21 01/21/21 Unknown History Physical Exam Vital Signs: Vital Signs: Last Vital Signs Temp 97.3 F 01/24/21 08:00 Pulse 99 01/24/21 08:00 Resp 20 01/24/21 08:00 BP 163/104 H 01/24/21 08:00 Pulse Ox 90 L 01/24/21 08:00 Body Mass Index 39.9 Const: General: cooperative, comfortable, acute distress mild and respiratory and anxious Nutritional Appearance: obese centrally obese Orientation/consciousness: patient oriented x3 HENMT: Head: Yes normocephalic and Yes atraumatic Neck: Neck: Yes trachea midline, Yes supple and Yes no JVD Resp: Effort & Inspection: normal respiratory effort Auscultation: diminished lung sounds Cardio: Jugular venous distension: no JVD Palpation: normal PMI Rate: regular rate Rhythm: regular rhythm Heart sounds: S1 normal heart sound present and S2 normal heart sound present GI: Inspection: Yes obesity Auscultation: normal bowel sounds Skin: General skin exam: no rashes or lesions noted Neuro: General: patient oriented x3 Extrem: General: Yes no clubbing, cyanosis or edema Psych: Appearance: grossly normal Affect: Anxious affect present Results Labs and Meds Result diagrams: 01/24/21 07:10 01/24/21 07:10 Lab results: Laboratory Results - last 24 hr 01/23/21 01/23/21 01/23/21 10:37 13:43 16:46 WBC RBC Hgb Hct MCV MCH MCHC RDW Plt Count MPV Absolute Nucleated RBC Nucleated RBC % (auto) O2 Saturation 80.0 83.0 ABG pH at Pt Temp 7.48 H 7.49 H ABG pH (Temp Correct) 7.49 H 7.50 H ABG pCO2 at Pt Temp 36 34 ABG pCO2 (Temp Corrct 35 33 ABG pO2 at Pt Temp 52 L 54 L ABG pO2 (Temp Correct 52 L ABG HCO3 27 H 26 ABG Base Excess (Actual) 4.3 3.7 VBG pH 7.38 VBG pCO2 48 VBG pO2 63 VBG HCO3 29 H VBG O2 Saturation 86.0 VBG Base Excess 3.1 Carboxyhemoglobin % Cancelled Sodium Potassium Chloride Carbon Dioxide Anion Gap BUN Creatinine Estim Creat Clear Calc Estimated GFR Random Glucose Calcium Respiratory Panel Jamison Adenovirus (Rapid PCR) B.pert (TEM-PCR) B.parapertussis DNA PCR C. pneumoniae DNA (PCR) Coronavirus OC43 (PCR) Coronavirus HKU1 (PCR) Coronavirus 229E (PCR) Coronavirus NL63 (PCR) Human Metapneumovir PCR Influenza A (RT-PCR) Influenza B (RT-PCR) M. pneumoniae (PCR) Parainfluenza 1 (PCR) Parainfluenza 2 (PCR) Parainfluenza 3 (PCR) Parainfluenza 4 (PCR) RSV (PCR) Entero/Rhino (PCR) SARS-CoV-2 RNA (RT-PCR) 01/23/21 01/23/21 01/24/21 17:01 20:42 07:10 WBC 9.0 RBC 4.12 L Hgb 12.0 L Hct 36.0 L MCV 87.4 MCH 29.1 MCHC 33.3 RDW 15.3 Plt Count 132 L MPV 9.8 Absolute Nucleated RBC 0.000 Nucleated RBC % (auto) 0.0 O2 Saturation ABG pH at Pt Temp ABG pH (Temp Correct) ABG pCO2 at Pt Temp ABG pCO2 (Temp Corrct ABG pO2 at Pt Temp ABG pO2 (Temp Correct ABG HCO3 ABG Base Excess (Actual) VBG pH VBG pCO2 VBG pO2 VBG HCO3 VBG O2 Saturation VBG Base Excess Carboxyhemoglobin % 0.4 Sodium Potassium Chloride Carbon Dioxide Anion Gap BUN Creatinine Estim Creat Clear Calc Estimated GFR Random Glucose Calcium Respiratory Panel Jamison See Note Adenovirus (Rapid PCR) Not Detected B.pert (TEM-PCR) Not Detected B.parapertussis DNA PCR Not Detected C. pneumoniae DNA (PCR) Not Detected Coronavirus OC43 (PCR) Not Detected Coronavirus HKU1 (PCR) Not Detected Coronavirus 229E (PCR) Not Detected Coronavirus NL63 (PCR) Not Detected Human Metapneumovir PCR Not Detected Influenza A (RT-PCR) Not Detected Influenza B (RT-PCR) Not Detected M. pneumoniae (PCR) Not Detected Parainfluenza 1 (PCR) Not Detected Parainfluenza 2 (PCR) Not Detected Parainfluenza 3 (PCR) Not Detected Parainfluenza 4 (PCR) Not Detected RSV (PCR) Not Detected Entero/Rhino (PCR) Not Detected SARS-CoV-2 RNA (RT-PCR) Not Detected 01/24/21 07:10 WBC RBC Hgb Hct MCV MCH MCHC RDW Plt Count MPV Absolute Nucleated RBC Nucleated RBC % (auto) O2 Saturation ABG pH at Pt Temp ABG pH (Temp Correct) ABG pCO2 at Pt Temp ABG pCO2 (Temp Corrct ABG pO2 at Pt Temp ABG pO2 (Temp Correct ABG HCO3 ABG Base Excess (Actual) VBG pH VBG pCO2 VBG pO2 VBG HCO3 VBG O2 Saturation VBG Base Excess Carboxyhemoglobin % Sodium 137 Potassium 4.1 Chloride 100 Carbon Dioxide 27 Anion Gap 14 BUN 24 H Creatinine 1.01 Estim Creat Clear Calc 104.3 Estimated GFR > 60 Random Glucose 152 H Calcium 9.3 Respiratory Panel Jamison Adenovirus (Rapid PCR) B.pert (TEM-PCR) B.parapertussis DNA PCR C. pneumoniae DNA (PCR) Coronavirus OC43 (PCR) Coronavirus HKU1 (PCR) Coronavirus 229E (PCR) Coronavirus NL63 (PCR) Human Metapneumovir PCR Influenza A (RT-PCR) Influenza B (RT-PCR) M. pneumoniae (PCR) Parainfluenza 1 (PCR) Parainfluenza 2 (PCR) Parainfluenza 3 (PCR) Parainfluenza 4 (PCR) RSV (PCR) Entero/Rhino (PCR) SARS-CoV-2 RNA (RT-PCR) EKG shows normal sinus rhythm with PACs Imaging Radiologist's impression: Impressions Chest CT 01/23/21 20:53 IMPRESSION: Patchy bilateral groundglass airspace disease concerning for viral or atypical infectious etiology without dense consolidation. Assessment and Plan (1) Hypoxia: Status: Acute Persistent hypoxemic respiratory failure. Clinically does not have any signs or symptoms of heart failure. There is no evidence of central or peripheral fluid overload. BNP is within normal limits. No rales by clinical exam. Unlikely that his hypoxemic respiratory failure secondary to congestive heart failure. However there was still a clinical concern about the same the b est way to probably go ahead would be to do a right heart catheterization to evaluate for filling pressures. However I do not think this is necessary at this point time. Continue to manage pulmonary issues. I think this is probably suggestive interstitial pneumonia of some sort. Continue supportive care and respiratory care. If he develops significant further hypoxic respiratory distress critical care may need to be in wall. Will sign of the case at this point time. Case was discussed with Dr. Deras. Procedures Date of Service Date of Service: 01/24/21
--- NOTE | 2021-01-24 10:22 | P.PNPL_ITS ---
Subjective Subjective Date of Service: 01/24/21 Principal diagnosis: respiratory distress . Interval history: This gentleman has developed increased respiratory distress, Requiring high concentration of oxygen, currently on Ventimask with 45% FiO2 Has no fever or chills. He has to discomfort in the back but no lateral chest pain. CT scan of the chest is grossly abnormal showing extensive interstitial pneumonitis. COVID test has been repeated and still negative. He also test is negative for all the respiratory pathogens. Objective Data Labs CBC & Chem 7: 01/24/21 07:10 01/24/21 07:10 Labs: Laboratory Results - last 24 hr 01/23/21 01/23/21 01/23/21 10:37 13:43 16:46 WBC RBC Hgb Hct MCV MCH MCHC RDW Plt Count MPV Absolute Nucleated RBC Nucleated RBC % (auto) O2 Saturation 80.0 83.0 ABG pH at Pt Temp 7.48 H 7.49 H ABG pH (Temp Correct) 7.49 H 7.50 H ABG pCO2 at Pt Temp 36 34 ABG pCO2 (Temp Corrct 35 33 ABG pO2 at Pt Temp 52 L 54 L ABG pO2 (Temp Correct 52 L ABG HCO3 27 H 26 ABG Base Excess (Actual) 4.3 3.7 VBG pH 7.38 VBG pCO2 48 VBG pO2 63 VBG HCO3 29 H VBG O2 Saturation 86.0 VBG Base Excess 3.1 Carboxyhemoglobin % Cancelled Sodium Potassium Chloride Carbon Dioxide Anion Gap BUN Creatinine Estim Creat Clear Calc Estimated GFR Random Glucose Calcium Respiratory Panel Jamison Adenovirus (Rapid PCR) B.pert (TEM-PCR) B.parapertussis DNA PCR C. pneumoniae DNA (PCR) Coronavirus OC43 (PCR) Coronavirus HKU1 (PCR) Coronavirus 229E (PCR) Coronavirus NL63 (PCR) Human Metapneumovir PCR Influenza A (RT-PCR) Influenza B (RT-PCR) M. pneumoniae (PCR) Parainfluenza 1 (PCR) Parainfluenza 2 (PCR) Parainfluenza 3 (PCR) Parainfluenza 4 (PCR) RSV (PCR) Entero/Rhino (PCR) SARS-CoV-2 RNA (RT-PCR) 01/23/21 01/23/21 01/24/21 17:01 20:42 07:10 WBC 9.0 RBC 4.12 L Hgb 12.0 L Hct 36.0 L MCV 87.4 MCH 29.1 MCHC 33.3 RDW 15.3 Plt Count 132 L MPV 9.8 Absolute Nucleated RBC 0.000 Nucleated RBC % (auto) 0.0 O2 Saturation ABG pH at Pt Temp ABG pH (Temp Correct) ABG pCO2 at Pt Temp ABG pCO2 (Temp Corrct ABG pO2 at Pt Temp ABG pO2 (Temp Correct ABG HCO3 ABG Base Excess (Actual) VBG pH VBG pCO2 VBG pO2 VBG HCO3 VBG O2 Saturation VBG Base Excess Carboxyhemoglobin % 0.4 Sodium Potassium Chloride Carbon Dioxide Anion Gap BUN Creatinine Estim Creat Clear Calc Estimated GFR Random Glucose Calcium Respiratory Panel Jamison See Note Adenovirus (Rapid PCR) Not Detected B.pert (TEM-PCR) Not Detected B.parapertussis DNA PCR Not Detected C. pneumoniae DNA (PCR) Not Detected Coronavirus OC43 (PCR) Not Detected Coronavirus HKU1 (PCR) Not Detected Coronavirus 229E (PCR) Not Detected Coronavirus NL63 (PCR) Not Detected Human Metapneumovir PCR Not Detected Influenza A (RT-PCR) Not Detected Influenza B (RT-PCR) Not Detected M. pneumoniae (PCR) Not Detected Parainfluenza 1 (PCR) Not Detected Parainfluenza 2 (PCR) Not Detected Parainfluenza 3 (PCR) Not Detected Parainfluenza 4 (PCR) Not Detected RSV (PCR) Not Detected Entero/Rhino (PCR) Not Detected SARS-CoV-2 RNA (RT-PCR) Not Detected 01/24/21 07:10 WBC RBC Hgb Hct MCV MCH MCHC RDW Plt Count MPV Absolute Nucleated RBC Nucleated RBC % (auto) O2 Saturation ABG pH at Pt Temp ABG pH (Temp Correct) ABG pCO2 at Pt Temp ABG pCO2 (Temp Corrct ABG pO2 at Pt Temp ABG pO2 (Temp Correct ABG HCO3 ABG Base Excess (Actual) VBG pH VBG pCO2 VBG pO2 VBG HCO3 VBG O2 Saturation VBG Base Excess Carboxyhemoglobin % Sodium 137 Potassium 4.1 Chloride 100 Carbon Dioxide 27 Anion Gap 14 BUN 24 H Creatinine 1.01 Estim Creat Clear Calc 104.3 Estimated GFR > 60 Random Glucose 152 H Calcium 9.3 Respiratory Panel Jamison Adenovirus (Rapid PCR) B.pert (TEM-PCR) B.parapertussis DNA PCR C. pneumoniae DNA (PCR) Coronavirus OC43 (PCR) Coronavirus HKU1 (PCR) Coronavirus 229E (PCR) Coronavirus NL63 (PCR) Human Metapneumovir PCR Influenza A (RT-PCR) Influenza B (RT-PCR) M. pneumoniae (PCR) Parainfluenza 1 (PCR) Parainfluenza 2 (PCR) Parainfluenza 3 (PCR) Parainfluenza 4 (PCR) RSV (PCR) Entero/Rhino (PCR) SARS-CoV-2 RNA (RT-PCR) Microbiology Microbiology Results: Microbiology 01/21/21 02:54 Blood - Venous Blood Culture - Preliminary No growth after 48 hours. 01/21/21 02:54 Blood - Venous Blood Culture - Preliminary No growth after 48 hours. Review of Systems Review of Systems Yes all other systems are reviewed and are negative Denies dysphagia Cardiovascular: Denies chest pain and Denies leg edema Respiratory: Reports as per HPI Gastrointestinal: Denies dysphagia, Denies nausea and Denies vomiting Reports Abnormal speech present Physical Exam Vital Signs: Vital Signs: Last Vital Signs Temp 97.3 F 01/24/21 08:00 Pulse 99 01/24/21 08:00 Resp 20 01/24/21 08:00 BP 163/104 H 01/24/21 08:00 Pulse Ox 90 L 01/24/21 08:00 Body Mass Index 39.9 Const: Other: He is quite short of breath even with the oxygen, on Ventimask with 45% FiO2. General: no acute distress, alert and awake; No healthy appearing or comfortable Orientation/consciousness: patient oriented x3 HENMT: Head: Yes normal to inspection General nose exam: No nasal polyps present and No nasal discharge present Face and sinus: Yes sinuses nontender Mouth: oropharynx abnormals (Oropharynx narrow and crowded but there is no acute infection) Throat: Yes posterior oropharynx normal Eyes: General: appearance normal, both eyes and all related structures Neck: Neck: Yes normal visual inspection, Yes no lymphadenopathy, Yes trachea midline and Yes no JVD Thyroid: Thyroid normal Chest: Other: Chest wall is quite thick but there is no local tenderness Resp: Other: Breath sounds are diminished , especially over the basilar areas. No wheezes, rhonchi are Creps. Cardio: Palpation: PMI not normal (Not palpable) Rate: regular rate Rhythm: regular rhythm Heart sounds: no gallops and no murmurs Peripheral pulses: Peripheral pulses 2+ throughout GI: Palpation (GI): Soft to palpation, nontender, No hepatosplenomegaly present, no masses and Other GI palpation findings present (Abdomen is obese and protuberant) Auscultation: normal bowel sounds Back/Spine/Pelvis: Thoracic/Lumbar Spine: thoracic and lumbar spine normal to inspection Skin: General skin exam: no rashes or lesions noted Neuro: General: patient oriented x3 and no focal motor deficits Cranial nerves: Yes CN's II-XII intact bilaterally Speech: Abnormal speech present Extrem: General: Yes normal to inspection, Yes no clubbing, cyanosis or edema, Yes no calf tenderness and No venous stasis dermatitis Psych: Speech and movement: Normal speech and movement present Procedures Date of Service Date of Service: 01/24/21 Assessment and Plan Assessment and plan (1) Community acquired pneumonia: Problem details: Seems to be less likely at this time. I would suggest to discontinue antibiotics at this time. Status: Acute (2) COPD exacerbation: Problem details: COPD is not a major issue at this time. Patient needs to be treated for acute rest respiratory distress syndrome. Status: Acute (3) Acute interstitial pneumonitis: Problem details: As per CT scan he has developed to a rather full minute eating acute interstitial pneumonitis. It will be typical for COVID pneumonia but COVID test is repeatedly negative. He could have nonspecific acute viral pneumonitis. Also possible acute allergic pneumonitis. [place] : IV steroids at a higher dose for the next few days such as Solumedrol 80 mg TID . O2 by Venti mask as long as O2 sat remains above 90%, but proceed to Hi- Papi or non invasive ventilatory support, if his respiratory distress continues to get worse. Status: Acute (4) ARDS (adult respiratory distress syndrome): Problem details: A ARDS is secondary to acute interstitial pneumonitis. See recommendations under acute pneumonitis. Status: Acute Time Spent With Patient Time: Total time spent is greater than 50% in coordination of care (as documented) at patient's floor/unit and/or counseling patient: Time with patient: 25 - 35 minutes
--- NOTE | 2021-01-24 12:00 | CA_ITS ---
Transthoracic Echocardiogram Patient (Last, First, Middle): Yovani Valenzuela, Gender: Male Date of : 1965 Age: 55 Procedure Date: 01/24/2021 Procedure Type: Transthoracic Echocardiogram Location: S3W Height: 175.26 cm Weight: 122.47 kg BSA: 2.35 m2 Heart Rate: bpm BP: 163 / 104 mmHg Recordings Librarian: ALEX Vazquez MD: Conrad Deras MD Physical Therapy Assistant: Ren Reina MD Symptoms: chf Study Quality: Technically Difficult ECG Rhythm: Sinus Conclusions: - 1. Normal biventricular systolic function with grade 1 diastolic dysfunction of the LV 2. Normal cardiac valvular Doppler 3. No gross pericardial effusion Findings Procedure Information The patient receives contrast. Left Ventricle Normal left ventricular size, thickness, and systolic function. The visually estimated ejection fraction is between 65-70%. Spectral Doppler is indicative of an impaired relaxation filling pattern. E/E prime ratio is <8, consistent with normal filling pressures. Evidence suggests grade I (mild) diastolic dysfunction. Right Ventricle Normal right ventricular cavity size and systolic function. Atria The left atrium is normal in size. Interatrial shunt cannot be excluded. The right atrium is normal in size. Aortic Valve The aortic valve was not well visualized. There is no aortic valve stenosis. There is no aortic valve regurgitation. Mitral Valve Likely normal mitral valve structure and function. There is trace mitral valve regurgitation. There is no mitral valve stenosis. Pulmonic Valve The pulmonic valve was not well visualized. Tricuspid Valve The tricuspid valve was not well visualized. Tricuspid regurgitation envelope is inadequate for calculation of right ventricular systolic pressure. Great Vessels All visible segments of the aorta are normal in size. The pulmonary artery was not well visualized. Venous The inferior vena cava was not well visualized. Pericardium/Pleural There is no evidence of pericardial effusion. Prior Study Comparison No prior study available for comparison. Measurements 2D Linear Measurements RVIDd: 2.57 RVIDd Index: 1.09 IVSd: 0.73 0.6-0.9/0.6-1.0 cm LVIDd: 5.25 3.9-5.3/4.2-5.9 cm LVIDd Index: 2.23 2.4-3.2/2.2-3.1 cm/m2 LVIDs: 3.81 2.0-3.6 cm LVPWd: 0.94 0.7-1.1 cm Ao Root: 3.30 2.1-3.5 cm LA Diam: 3.50 2.7-3.8/3.0-4.0 cm LAIDs Index: 1.49 1.5-2.3 cm/m2 LV Mass: 192.79 67-162/88-224 g LV Mass Index: 82.04 43-95/49-115 g/m2 LVOT Diam: 2.00 3.0+(-)1.3 cm 2D Systolic Function EF 4C: 69.50 >55% EF 2C: 68.30 >55% EF BiP: 70.30 >55% Mitral Valve MV Pk E: 0.78 MV PK A: 0.90 MV Decel Time: 106.00 E/A: 0.90 E'Lateral: 8.81 E'Medial: 6.64 E/E' Med: 11.70 E/E' Lat: 8.80 Aortic Valve AoV Pk Demetrio: 1.46 AoV Mn Demetrio: 1.05 AoV VTI: 0.19 AoV Pk Grad: 9.00 Aov Mn Grad: 5.00 JESSI Cont.VTI: 2.63 LVOT LVOT Pk Demetrio: 1.12 LVOT Mn Demetrio: 0.71 LVOT VTI: 0.16 LVOT Pk Grad: 5.00 LVOT Mn Grad: 3.00 LVOT Diam: 2.00 LVOT Area: 3.14 Diastolic Function MV Pk E: 0.78 MV Pk A: 0.90 E/A: 0.90 E'Medial: 6.64 E/E' Med: 11.70 E' Laterial: 8.81 E/E' Lat: 8.80 Great Vessels Aorta Ao Root-2D: 3.30 2.0-3.7 cm Ao Asc: 3.00 2.1-3.4 cm Ao Arch: 2.80 Updated in Other Vendor System with Status of Final Ren Reina MD electronically signed on 01/25/2021 1:08:58 PM with status of Final
[2021-01-24] MEDS: methylPREDNISolone Sod Succ 125 MG/2 ML VIAL 80 MG IV ×2 (13:14→20:07)
--- NOTE | 2021-01-24 16:37 | PC.NURSE ---
Patient transferred from Medical Surgical floor. A&Ox3. Calm and cooperative. Impulsive at times. On 4L O2 via oxymizer with O2 sats trending in the mid 90s. No obvious signs of respiratory distress. This RN spoke to on [facility] regarding recommendation for HFNC, reported above assessment findings, no need for HFNC at this time per . Patient currently on 4 L via nasal cannula with O2 sats trending between 92-94%. Will continue to monitor patients O2 requirements and respiratory effort. Telesitter at bedside for patient safety, high fall risk precautions in place, bed alarm on and call bailey within reach. Patient educated on plan of care and safety measures, patient verbalized understanding.
[2021-01-25] VITALS (13 sets, daily range): BP systolic 133–164; BP diastolic 72–95; PULSE 80–100; RESP 12–24; TEMP 35.6–37.1; O2SAT 91–97
[2021-01-25] MEDS: hydrOXYzine HCL 25 MG TABLET 50 MG PO (02:59)
--- NOTE | 2021-01-25 04:59 | PC.NURSE ---
CARE ASSUMED 23:15...AWAKE..ALERT..ORIENTED X3...VAGUE RESPONSES AT TIMES..O2 4 L/M..LUNGS DIMINISHED LOWER BUTCHER..RESPIRATIONS EASY AT REST..GOMEZ...SAO2 92-94%...SAO2 MID-80'S WITH O2 OFF...OOB 3AM TO VOID...GOMEZ...ANXIOUS AFTERWARDS...REQUESTED/RECEIVED PRN ATARAX WITH EFFECT..DOZING AFTERWARDS..NSR..NO ECTOPY
[2021-01-25] MEDS: methylPREDNISolone Sod Succ 125 MG/2 ML VIAL 80 MG IV ×3 (05:28→20:16)
[2021-01-25] MEDS: Omeprazole 20 MG CAPSULE.DR PO ×2 (05:29→16:26)
[2021-01-25 06:09] LABS: VBG Base Excess 5.5 mmol/L; VBG HCO3 29 mmol/L (22-26); VBG pCO2 39 mmHg; VBG pH 7.47 (7.32-7.43); VBG pO2 86 mmHg
[2021-01-25 06:09] LABS: Venous Blood Gas Refer to POC result
[2021-01-25 06:36] LABS: Anion Gap 12 (12-20); Blood Urea Nitrogen 29 mg/dL (9-16); Calcium 9.1 mg/dL (8.4-10.2); Carbon Dioxide 29 mmol/L (22-29); Chloride 100 mmol/L (96-108); Creatinine Clr Calc Pharmacy 109.7; Estimated Glomerular Filt Rate > 60; Glucose Random 204 mg/dL (60-115); Sodium 137 mmol/L (135-145)
[2021-01-25 06:40] LABS: Hematocrit 35.6 % (42-52); Hemoglobin 11.8 g/dl (14.0-18.0); Mean Corpuscular HGB Conc 33.1 g/dl (31.0-36.0); Mean Corpuscular Hemoglobin 28.6 pg (27.0-33.0); Mean Corpuscular Volume 86.4 fL (80-98); Mean Platelet Volume 10.2 fL (9.4-12.4); Platelet Count 124 X10*3/uL (160-400); Red Blood Count 4.12 X10*6/uL (4.60-5.80); White Blood Count 7.1 X10*3/uL (4.8-10.8)
[2021-01-25] MEDS: Lidocaine 4 % Patch ADH..PATCH 1 PATCH TRANSDERMA (07:29)
[2021-01-25] MEDS: polyethylene glycoL 3350 17 GM POWD.PACK PO (07:30)
[2021-01-25] MEDS: Buprenorphine/Naloxone 8/2 mg FILM 2 FILM SUBLINGUAL (07:30)
[2021-01-25] MEDS: Nicotine 14 MG PATCH.TD24 TRANSDERMA (07:31)
[2021-01-25] MEDS: Enoxaparin Sodium 40 MG/0.4 ML SYRINGE SUBCUT (07:31)
[2021-01-25] MEDS: Spironolactone 25 MG TABLET PO (07:31)
[2021-01-25] MEDS: 0.9 % Sodium Chloride Flush 3 ML SYRINGE IVFLUSH ×2 (07:31→16:30)
[2021-01-25] MEDS: ARIPiprazole 5 MG TABLET PO (07:32)
[2021-01-25] MEDS: cloNIDine HCL 0.1 MG TABLET PO ×2 (07:32→20:17)
[2021-01-25] MEDS: PARoxetine HCL 40 MG TABLET PO (07:32)
[2021-01-25] MEDS: buPROPion HCl XL 300 MG TAB.ER.24H PO (07:33)
[2021-01-25] MEDS: Tamsulosin HCL 0.4 MG CAPSULE 0.8 MG PO (07:33)
[2021-01-25] MEDS: Furosemide 40 MG TABLET PO (07:33)
[2021-01-25] MEDS: buPROPion HCl XL 150 MG TAB.ER.24H PO (07:33)
[2021-01-25] MEDS: Albuterol/Iprat 2.5/0.5MG 3 ML AMPUL.NEB INHALE ×3 (07:39→19:54)
[2021-01-25] MEDS: guaiFENesin DM 100/10/5 ML 5 ML SYRUP PO (14:14)
--- NOTE | 2021-01-25 15:36 | HO.PM.IMPN ---
Subjective Subjective Date of Service: 01/25/21 Interval History: Patient feels better this morning complaining of less shortness of breath denies nausea vomiting, uses walker at home for ambulation, does not have home oxygen. ros General no headache, no dizziness, no fever CVS no chest pain, no palpitation. Respiratory + sob, no respiratory distress. Gastrointestinal no nausea, no vomiting, no abdominal pain Physical Exam Vital Signs: Vital Signs: Last Vital Signs Temp 96.1 F L 01/25/21 12:00 Pulse 94 01/25/21 15:04 Resp 18 01/25/21 12:00 BP 141/79 H 01/25/21 12:00 Pulse Ox 93 01/25/21 12:00 Body Mass Index 39.9 General resting comfortably in no acute distress. Neck supple no JVD. CVS regular rate rhythm, Respiratory lungs clear to auscultation, diminished, no respiratory distress, no wheeze, no rhonchi. Gastrointestinal abdomen soft, nontender, bowel sounds audible, no guarding , no rigidity. Extremities no clubbing, cyanosis or edema. Neuro nonfocal , speech clear. Skin no rash Objective Data Current Medications Generic Name Dose Route Start Last Admin Trade Name Freq PRN Reason Stop Dose Admin Acetaminophen 650 mg 01/21/21 04:56 01/22/21 09:43 Acetaminophen 325 Mg Tablet PO 650 mg Q6H PRN Administration Pain, Mild (Pain Scale 1-3) Albuterol/Ipratropium 3 ml 01/21/21 08:00 01/25/21 15:02 Albuterol/Iprat 2.5/0.5mg 3 Ml Ampul.Neb INHALE 3 ml RQ4H WHILE AWAKE SHARIF Administration Albuterol/Ipratropium 3 ml 01/21/21 04:56 01/22/21 23:53 Albuterol/Iprat 2.5/0.5mg 3 Ml Ampul.Neb INHALE 3 ml RQ4H PRN Administration Shortness of Breath/Wheezing Aripiprazole 5 mg 01/21/21 09:00 01/25/21 07:32 Aripiprazole 5 Mg Tablet PO 5 mg DAILY SHARIF Administration Benzocaine 1 lozenge 01/22/21 22:11 01/22/21 22:22 Throat Lozenge, Medicated Lozenge MUCOUS MEM 1 lozenge Q2H PRN Administration Sore Throat Buprenorphine/Naloxone 2 film 01/21/21 09:00 01/25/21 07:30 Buprenorphine/Naloxone 8/2 Mg Film SUBLINGUAL 2 film DAILY SHARIF Administration Bupropion HCl 300 mg 01/21/21 09:00 01/25/21 07:33 Bupropion Hcl Xl 300 Mg Tab.Er.24h PO 300 mg DAILY SHARIF Administration Bupropion HCl 150 mg 01/22/21 09:00 01/25/21 07:33 Bupropion Hcl Xl 150 Mg Tab.Er.24h PO 150 mg DAILY SHARIF Administration Clonidine HCl 0.1 mg 01/21/21 09:00 01/25/21 07:32 Clonidine Hcl 0.1 Mg Tablet PO 0.1 mg BID SHARIF Administration Protocol Cyclobenzaprine HCl 10 mg 01/21/21 04:52 01/23/21 10:04 Cyclobenzaprine Hcl 10 Mg Tablet PO 10 mg TID PRN Administration Muscle Spasm Docusate Sodium 100 mg 01/21/21 04:56 Docusate Sodium 100 Mg Capsule PO DAILY PRN Constipation Enoxaparin Sodium 40 mg 01/21/21 07:00 01/25/21 07:31 Enoxaparin Sodium 40 Mg/0.4 Ml Syringe SUBCUT 40 mg Q24H SHARIF Administration Furosemide 40 mg 01/25/21 09:00 01/25/21 07:33 Furosemide 40 Mg Tablet PO 40 mg DAILY SHARIF Administration Protocol Guaifenesin/Dextromethorphan 5 ml 01/22/21 22:11 01/25/21 14:14 Guaifenesin Dm 100/10/5 Ml 5 Ml Syrup PO 5 ml Q6H PRN Administration Cough Hydroxyzine HCl 50 mg 01/22/21 10:11 01/25/21 02:59 Hydroxyzine Hcl 25 Mg Tablet PO 50 mg Q8H PRN Administration Anxiety Lidocaine 1 patch 01/21/21 09:00 01/25/21 07:29 Lidocaine 4 % Patch Adh..Patch TRANSDERMA 1 patch DAILY SHARIF Administration Protocol Methylprednisolone Sodium Succinate 80 mg 01/24/21 13:00 01/25/21 05:28 Methylprednisolone Sod Succ 125 Mg/2 Ml Vial IV 80 mg Q8H SHARIF Administration Nicotine 14 mg 01/21/21 11:00 01/25/21 07:31 Nicotine 14 Mg Patch.Td24 TRANSDERMA 14 mg DAILY SHARIF Administration Omeprazole 20 mg 01/24/21 16:30 01/25/21 05:29 Omeprazole 20 Mg Capsule. PO 20 mg BID@8233,4509 SHARIF Administration Ondansetron HCl 4 mg 01/21/21 04:56 Ondansetron Hcl 4 Mg/2 Ml Vial IVPUSH Q8H PRN Nausea and Vomiting Paroxetine HCl 40 mg 01/21/21 09:00 01/25/21 07:32 Paroxetine Hcl 40 Mg Tablet PO 40 mg DAILY SHARIF Administration Polyethylene Glycol 17 gm 01/22/21 15:00 01/25/21 07:30 Polyethylene Glycol 3350 17 Gm Powd.Pack PO 17 gm DAILY SHARIF Administration Sodium Chloride 3 ml 01/21/21 08:00 01/25/21 07:31 0.9 % Sodium Chloride Flush 3 Ml Syringe IVFLUSH 3 ml QSHIFT SHARIF Administration Spironolactone 25 mg 01/21/21 09:00 01/25/21 07:31 Spironolactone 25 Mg Tablet PO 25 mg DAILY SHARIF Administration Protocol Tamsulosin HCl 0.8 mg 01/21/21 09:00 01/25/21 07:33 Tamsulosin Hcl 0.4 Mg Capsule PO 0.8 mg DAILY SHARIF Administration Labs CBC & Chem 7: 01/25/21 05:59 01/25/21 05:59 Microbiology Microbiology Results: Microbiology 01/21/21 02:54 Blood - Venous Blood Culture - Preliminary No growth after 48 hours. 01/21/21 02:54 Blood - Venous Blood Culture - Preliminary No growth after 48 hours. Assessment and Plan (1) Acute interstitial pneumonitis: Status: Acute (2) Acute respiratory failure with hypoxia: Status: Acute Assessment and Plan: 55-year-old male with past medical history of COPD who presents to the hospital with difficulty breathing cough as well as muscle spasm and back pain. 1. Acute hypoxic respiratory failure due to interstitial pneumonitis Initially thought to have sepsis- secondary to community-acquired pneumonia and treated with IV antibiotic but since had no leukocytosis, low procalcitonin level and no response to antibiotic therefore antibiotic discontinued CT chest showed bilateral patchy peribronchial vascular ground-glass infiltrates consistent with interstitial pneumonitis therefore patient started on high-dose IV steroids as per pulmonology Shortness of breath and hypoxemia improving. Will gradually wean steroids and taper oxygen. Recommend out of bed to chair, incentive spirometry 2. muscle spasm/ back pain: Stable pain continue lidocaine patch and hold muscle relaxant. 3.hypertension - stable, continue spironolactone, and clonidine 4. CHF - no exacerbation noted echo obtained report pending continue Lasix 40 mg home dose. 5. Tobacco use disorder continue nicotine patch 6. Mood Disorder cont. paxil and welbutrin. dvt prophylax : On lovenox
[2021-01-25] MEDS: Throat Lozenge, Medicated LOZENGE 1 LOZENGE MUCOUS MEM ×2 (16:29→22:08)
[2021-01-26] VITALS (12 sets, daily range): BP systolic 127–166; BP diastolic 74–95; PULSE 79–97; RESP 18–20; TEMP 36.2–36.8; O2SAT 93–98
[2021-01-26] MEDS: 0.9 % Sodium Chloride Flush 3 ML SYRINGE IVFLUSH ×4 (00:02→21:05)
[2021-01-26] MEDS: methylPREDNISolone Sod Succ 125 MG/2 ML VIAL 80 MG IV ×2 (04:06→13:44)
[2021-01-26] MEDS: Enoxaparin Sodium 40 MG/0.4 ML SYRINGE SUBCUT (05:52)
[2021-01-26] MEDS: Omeprazole 20 MG CAPSULE.DR PO ×2 (05:52→16:06)
[2021-01-26] MEDS: Albuterol/Iprat 2.5/0.5MG 3 ML AMPUL.NEB INHALE ×4 (08:16→20:19)
[2021-01-26] MEDS: ARIPiprazole 5 MG TABLET PO (09:15)
[2021-01-26] MEDS: polyethylene glycoL 3350 17 GM POWD.PACK PO (09:15)
[2021-01-26] MEDS: cloNIDine HCL 0.1 MG TABLET PO ×2 (09:15→21:00)
[2021-01-26] MEDS: buPROPion HCl XL 300 MG TAB.ER.24H PO (09:15)
[2021-01-26] MEDS: PARoxetine HCL 40 MG TABLET PO (09:15)
[2021-01-26] MEDS: Furosemide 40 MG TABLET PO (09:15)
[2021-01-26] MEDS: Spironolactone 25 MG TABLET PO (09:15)
[2021-01-26] MEDS: Tamsulosin HCL 0.4 MG CAPSULE 0.8 MG PO (09:15)
[2021-01-26] MEDS: Buprenorphine/Naloxone 8/2 mg FILM 2 FILM SUBLINGUAL (09:15)
[2021-01-26] MEDS: buPROPion HCl XL 150 MG TAB.ER.24H PO (09:15)
[2021-01-26] MEDS: Lidocaine 4 % Patch ADH..PATCH 1 PATCH TRANSDERMA (09:15)
[2021-01-26] MEDS: Nicotine 14 MG PATCH.TD24 TRANSDERMA (09:16)
[2021-01-26] MEDS: Throat Lozenge, Medicated LOZENGE 1 LOZENGE MUCOUS MEM (13:49)
--- NOTE | 2021-01-26 15:24 | MHC.CM.PN ---
per rounds no anticapted dc date at this time
--- NOTE | 2021-01-26 16:23 | PC.NURSE ---
Pt OOB to recliner with x1 assist. Ambulated around room with this RN. Sats remained in the mid 90's range on 2L NC. No c/o SOB or respiratory distress. Pt resting in recliner with feet elevated. Call bailey in reach. No compaints at this time.
--- NOTE | 2021-01-26 16:27 | HO.PM.IMPN ---
Subjective Subjective Date of Service: 01/26/21 Interval History: Patient feeling better, less shortness of breath, complaining of shortness of breath with activity, oxygenation stable 95% on 3 L no acute issues overnight. ros General no headache, no dizziness, no fever CVS no chest pain, no palpitation. Respiratory + sob with activity, no respiratory distress. Gastrointestinal no nausea, no vomiting, no abdominal pain Physical Exam Vital Signs: Vital Signs: Last Vital Signs Temp 97.1 F 01/26/21 15:11 Pulse 80 01/26/21 15:55 Resp 18 01/26/21 15:11 BP 127/79 01/26/21 15:11 Pulse Ox 96 01/26/21 15:11 Body Mass Index 39.9 General resting comfortably in no acute distress. Neck supple no JVD. CVS regular rate rhythm, Respiratory lungs clear to auscultation, no respiratory distress, no wheeze, no rhonchi. Gastrointestinal abdomen soft, nontender, bowel sounds audible, no guarding , no rigidity. Extremities no clubbing, cyanosis or edema. Neuro nonfocal , speech clear. Skin no rash Objective Data Current Medications Generic Name Dose Route Start Last Admin Trade Name Freq PRN Reason Stop Dose Admin Acetaminophen 650 mg 01/21/21 04:56 01/22/21 09:43 Acetaminophen 325 Mg Tablet PO 650 mg Q6H PRN Administration Pain, Mild (Pain Scale 1-3) Albuterol/Ipratropium 3 ml 01/21/21 08:00 01/26/21 15:54 Albuterol/Iprat 2.5/0.5mg 3 Ml Ampul.Neb INHALE 3 ml RQ4H WHILE AWAKE SHARIF Administration Albuterol/Ipratropium 3 ml 01/21/21 04:56 01/22/21 23:53 Albuterol/Iprat 2.5/0.5mg 3 Ml Ampul.Neb INHALE 3 ml RQ4H PRN Administration Shortness of Breath/Wheezing Aripiprazole 5 mg 01/21/21 09:00 01/26/21 09:15 Aripiprazole 5 Mg Tablet PO 5 mg DAILY SHARIF Administration Benzocaine 1 lozenge 01/22/21 22:11 01/26/21 13:49 Throat Lozenge, Medicated Lozenge MUCOUS MEM 1 lozenge Q2H PRN Administration Sore Throat Buprenorphine/Naloxone 2 film 01/21/21 09:00 01/26/21 09:15 Buprenorphine/Naloxone 8/2 Mg Film SUBLINGUAL 2 film DAILY SHARIF Administration Bupropion HCl 300 mg 01/21/21 09:00 01/26/21 09:15 Bupropion Hcl Xl 300 Mg Tab.Er.24h PO 300 mg DAILY SHARIF Administration Bupropion HCl 150 mg 01/22/21 09:00 01/26/21 09:15 Bupropion Hcl Xl 150 Mg Tab.Er.24h PO 150 mg DAILY SHARIF Administration Clonidine HCl 0.1 mg 01/21/21 09:00 01/26/21 09:15 Clonidine Hcl 0.1 Mg Tablet PO 0.1 mg BID SHARIF Administration Protocol Cyclobenzaprine HCl 10 mg 01/21/21 04:52 01/23/21 10:04 Cyclobenzaprine Hcl 10 Mg Tablet PO 10 mg TID PRN Administration Muscle Spasm Docusate Sodium 100 mg 01/21/21 04:56 Docusate Sodium 100 Mg Capsule PO DAILY PRN Constipation Enoxaparin Sodium 40 mg 01/21/21 07:00 01/26/21 05:52 Enoxaparin Sodium 40 Mg/0.4 Ml Syringe SUBCUT 40 mg Q24H SHARIF Administration Furosemide 40 mg 01/25/21 09:00 01/26/21 09:15 Furosemide 40 Mg Tablet PO 40 mg DAILY SHARIF Administration Protocol Guaifenesin/Dextromethorphan 5 ml 01/22/21 22:11 01/25/21 14:14 Guaifenesin Dm 100/10/5 Ml 5 Ml Syrup PO 5 ml Q6H PRN Administration Cough Hydroxyzine HCl 50 mg 01/22/21 10:11 01/25/21 02:59 Hydroxyzine Hcl 25 Mg Tablet PO 50 mg Q8H PRN Administration Anxiety Lidocaine 1 patch 01/21/21 09:00 01/26/21 09:15 Lidocaine 4 % Patch Adh..Patch TRANSDERMA 1 patch DAILY SHARIF Administration Protocol Methylprednisolone Sodium Succinate 80 mg 01/24/21 13:00 01/26/21 13:44 Methylprednisolone Sod Succ 125 Mg/2 Ml Vial IV 80 mg Q8H SHARIF Administration Nicotine 14 mg 01/21/21 11:00 01/26/21 09:16 Nicotine 14 Mg Patch.Td24 TRANSDERMA 14 mg DAILY SHARIF Administration Omeprazole 20 mg 01/24/21 16:30 01/26/21 16:06 Omeprazole 20 Mg Capsule. PO 20 mg BID@6424,0512 SHARIF Administration Ondansetron HCl 4 mg 01/21/21 04:56 Ondansetron Hcl 4 Mg/2 Ml Vial IVPUSH Q8H PRN Nausea and Vomiting Paroxetine HCl 40 mg 01/21/21 09:00 01/26/21 09:15 Paroxetine Hcl 40 Mg Tablet PO 40 mg DAILY SHARIF Administration Polyethylene Glycol 17 gm 01/22/21 15:00 01/26/21 09:15 Polyethylene Glycol 3350 17 Gm Powd.Pack PO 17 gm DAILY SHARIF Administration Sodium Chloride 3 ml 01/21/21 08:00 01/26/21 16:06 0.9 % Sodium Chloride Flush 3 Ml Syringe IVFLUSH 3 ml QSHIFT SHARIF Administration Spironolactone 25 mg 01/21/21 09:00 01/26/21 09:15 Spironolactone 25 Mg Tablet PO 25 mg DAILY SHARIF Administration Protocol Tamsulosin HCl 0.8 mg 01/21/21 09:00 01/26/21 09:15 Tamsulosin Hcl 0.4 Mg Capsule PO 0.8 mg DAILY SHARIF Administration Labs CBC & Chem 7: 01/25/21 05:59 01/25/21 05:59 Microbiology Microbiology Results: Microbiology 01/21/21 02:54 Blood - Venous Blood Culture - Final No growth after 5 days. 01/21/21 02:54 Blood - Venous Blood Culture - Final No growth after 5 days. Assessment and Plan (1) Acute respiratory failure with hypoxia: Status: Acute (2) ARDS (adult respiratory distress syndrome): Status: Acute (3) Acute interstitial pneumonitis: Status: Acute (4) Thoracic back pain: Status: Acute Assessment and Plan: 55-year-old male with past medical history of COPD who presents to the hospital with difficulty breathing cough as well as muscle spasm and back pain. 1. Acute hypoxic respiratory failure due to interstitial pneumonitis Patient feeling better this morning decrease oxygen requirement. Initially thought to have sepsis- secondary to community-acquired pneumonia and treated with IV antibiotic but since had no leukocytosis, low procalcitonin level and no response to antibiotic therefore antibiotic discontinued CT chest showed bilateral patchy peribronchial vascular ground-glass infiltrates consistent with interstitial pneumonitis therefore patient started on high-dose IV steroids as per pulmonology Since patient has significantly improved will change to by mouth steroid and taper oxygen. Recommend out of bed to chair, incentive spirometry 2. muscle spasm/ back pain: Stable pain continue lidocaine patch and hold muscle relaxant. 3.hypertension - stable, continue spironolactone, and clonidine 4. CHF - no exacerbation noted echo showed EF 65-70% BNP less than 10, continue Lasix 40 mg home dose. 5. Tobacco use disorder continue nicotine patch, strongly advised to abstain from smoking 6. Mood Disorder cont. paxil and welbutrin. dvt prophylax : On lovenox
[2021-01-27] VITALS (10 sets, daily range): BP systolic 126–144; BP diastolic 81–94; PULSE 84–96; RESP 18–20; TEMP 36.3–36.6; O2SAT 93–100
[2021-01-27] MEDS: Enoxaparin Sodium 40 MG/0.4 ML SYRINGE SUBCUT (06:15)
[2021-01-27] MEDS: Omeprazole 20 MG CAPSULE.DR PO ×2 (06:15→16:30)
[2021-01-27] MEDS: Albuterol/Iprat 2.5/0.5MG 3 ML AMPUL.NEB INHALE ×4 (07:10→20:19)
[2021-01-27] MEDS: cloNIDine HCL 0.1 MG TABLET PO ×2 (08:49→22:28)
[2021-01-27] MEDS: predniSONE 20 MG TABLET 60 MG PO (08:49)
[2021-01-27] MEDS: ARIPiprazole 5 MG TABLET PO (08:49)
[2021-01-27] MEDS: Spironolactone 25 MG TABLET PO (08:49)
[2021-01-27] MEDS: buPROPion HCl XL 150 MG TAB.ER.24H PO (08:49)
[2021-01-27] MEDS: Furosemide 40 MG TABLET PO (08:49)
[2021-01-27] MEDS: PARoxetine HCL 40 MG TABLET PO (08:49)
[2021-01-27] MEDS: buPROPion HCl XL 300 MG TAB.ER.24H PO (08:49)
[2021-01-27] MEDS: Tamsulosin HCL 0.4 MG CAPSULE 0.8 MG PO (08:50)
[2021-01-27] MEDS: Lidocaine 4 % Patch ADH..PATCH 1 PATCH TRANSDERMA (08:50)
[2021-01-27] MEDS: Buprenorphine/Naloxone 8/2 mg FILM 2 FILM SUBLINGUAL (08:50)
[2021-01-27] MEDS: Nicotine 14 MG PATCH.TD24 TRANSDERMA (08:50)
[2021-01-27] MEDS: 0.9 % Sodium Chloride Flush 3 ML SYRINGE IVFLUSH ×2 (08:51→16:30)
--- NOTE | 2021-01-27 17:55 | HO.PM.IMPN ---
Subjective Subjective Date of Service: 01/27/21 Interval History: Feels better, less shortness of breath, has been out of bed to chair but has not ambulated, currently on 2 L of oxygen finger oximetry 96 97%, no acute issues overnight. ROS General no headache, no dizziness, no fever CVS no chest pain, no palpitation. Respiratory + sob with activity, no respiratory distress. Gastrointestinal no nausea, no vomiting, no abdominal pain Physical Exam Vital Signs: Vital Signs: Last Vital Signs Temp 97.9 F 01/27/21 15:13 Pulse 96 01/27/21 15:13 Resp 20 01/27/21 15:13 BP 138/86 01/27/21 15:13 Pulse Ox 100 01/27/21 15:13 Body Mass Index 39.9 General resting comfortably in no acute distress. Neck supple no JVD. CVS regular rate rhythm, Respiratory lungs clear to auscultation, no respiratory distress, no wheeze, no rhonchi. Gastrointestinal abdomen soft, nontender, bowel sounds audible, no guarding , no rigidity. Extremities no clubbing, cyanosis or edema. Neuro nonfocal , speech clear. Skin no rash Objective Data Current Medications Generic Name Dose Route Start Last Admin Trade Name Freq PRN Reason Stop Dose Admin Acetaminophen 650 mg 01/21/21 04:56 01/22/21 09:43 Acetaminophen 325 Mg Tablet PO 650 mg Q6H PRN Administration Pain, Mild (Pain Scale 1-3) Albuterol/Ipratropium 3 ml 01/21/21 08:00 01/27/21 15:11 Albuterol/Iprat 2.5/0.5mg 3 Ml Ampul.Neb INHALE 3 ml RQ4H WHILE AWAKE SHARIF Administration Albuterol/Ipratropium 3 ml 01/21/21 04:56 01/22/21 23:53 Albuterol/Iprat 2.5/0.5mg 3 Ml Ampul.Neb INHALE 3 ml RQ4H PRN Administration Shortness of Breath/Wheezing Aripiprazole 5 mg 01/21/21 09:00 01/27/21 08:49 Aripiprazole 5 Mg Tablet PO 5 mg DAILY SHARIF Administration Benzocaine 1 lozenge 01/22/21 22:11 01/26/21 13:49 Throat Lozenge, Medicated Lozenge MUCOUS MEM 1 lozenge Q2H PRN Administration Sore Throat Buprenorphine/Naloxone 2 film 01/21/21 09:00 01/27/21 08:50 Buprenorphine/Naloxone 8/2 Mg Film SUBLINGUAL 2 film DAILY SHARIF Administration Bupropion HCl 300 mg 01/21/21 09:00 01/27/21 08:49 Bupropion Hcl Xl 300 Mg Tab.Er.24h PO 300 mg DAILY SHARIF Administration Bupropion HCl 150 mg 01/22/21 09:00 01/27/21 08:49 Bupropion Hcl Xl 150 Mg Tab.Er.24h PO 150 mg DAILY SHARIF Administration Clonidine HCl 0.1 mg 01/21/21 09:00 01/27/21 08:49 Clonidine Hcl 0.1 Mg Tablet PO 0.1 mg BID SHARIF Administration Protocol Cyclobenzaprine HCl 10 mg 01/21/21 04:52 01/23/21 10:04 Cyclobenzaprine Hcl 10 Mg Tablet PO 10 mg TID PRN Administration Muscle Spasm Docusate Sodium 100 mg 01/21/21 04:56 Docusate Sodium 100 Mg Capsule PO DAILY PRN Constipation Enoxaparin Sodium 40 mg 01/21/21 07:00 01/27/21 06:15 Enoxaparin Sodium 40 Mg/0.4 Ml Syringe SUBCUT 40 mg Q24H SHARIF Administration Furosemide 40 mg 01/25/21 09:00 01/27/21 08:49 Furosemide 40 Mg Tablet PO 40 mg DAILY SHARIF Administration Protocol Guaifenesin/Dextromethorphan 5 ml 01/22/21 22:11 01/25/21 14:14 Guaifenesin Dm 100/10/5 Ml 5 Ml Syrup PO 5 ml Q6H PRN Administration Cough Hydroxyzine HCl 50 mg 01/22/21 10:11 01/25/21 02:59 Hydroxyzine Hcl 25 Mg Tablet PO 50 mg Q8H PRN Administration Anxiety Lidocaine 1 patch 01/21/21 09:00 01/27/21 08:50 Lidocaine 4 % Patch Adh..Patch TRANSDERMA 1 patch DAILY SHARIF Administration Protocol Nicotine 14 mg 01/21/21 11:00 01/27/21 08:50 Nicotine 14 Mg Patch.Td24 TRANSDERMA 14 mg DAILY SHARIF Administration Omeprazole 20 mg 01/24/21 16:30 01/27/21 16:30 Omeprazole 20 Mg Capsule.Dr PO 20 mg BID@0630,1630 SHARIF Administration Ondansetron HCl 4 mg 01/21/21 04:56 Ondansetron Hcl 4 Mg/2 Ml Vial IVPUSH Q8H PRN Nausea and Vomiting Paroxetine HCl 40 mg 01/21/21 09:00 01/27/21 08:49 Paroxetine Hcl 40 Mg Tablet PO 40 mg DAILY SHARIF Administration Polyethylene Glycol 17 gm 01/22/21 15:00 01/27/21 08:48 Polyethylene Glycol 3350 17 Gm Powd.Pack PO Not Given DAILY SHARIF Prednisone 60 mg 01/27/21 09:00 01/27/21 08:49 Prednisone 20 Mg Tablet PO 60 mg DAILY SHARIF Administration Sodium Chloride 3 ml 01/21/21 08:00 01/27/21 16:30 0.9 % Sodium Chloride Flush 3 Ml Syringe IVFLUSH 3 ml QSHIFT SHARIF Administration Spironolactone 25 mg 01/21/21 09:00 01/27/21 08:49 Spironolactone 25 Mg Tablet PO 25 mg DAILY SHARIF Administration Protocol Tamsulosin HCl 0.8 mg 01/21/21 09:00 01/27/21 08:50 Tamsulosin Hcl 0.4 Mg Capsule PO 0.8 mg DAILY SHARIF Administration Labs CBC & Chem 7: 01/25/21 05:59 01/25/21 05:59 Microbiology Microbiology Results: Microbiology 01/21/21 02:54 Blood - Venous Blood Culture - Final No growth after 5 days. 01/21/21 02:54 Blood - Venous Blood Culture - Final No growth after 5 days. Assessment and Plan (1) Acute respiratory failure with hypoxia: Status: Acute (2) Acute interstitial pneumonitis: Status: Acute (3) ARDS (adult respiratory distress syndrome): Status: Acute (4) Thoracic back pain: Status: Acute Assessment and Plan: 55-year-old male with past medical history of COPD who presents to the hospital with difficulty breathing cough as well as muscle spasm and back pain. 1. Acute hypoxic respiratory failure due to interstitial pneumonitis decrease oxygen requirement, no shortness of breath at rest. Initially thought to have sepsis- secondary to community-acquired pneumonia and treated with IV antibiotic but since had no leukocytosis, low procalcitonin level and no response to antibiotic therefore antibiotic were discontinued CT chest showed bilateral patchy peribronchial vascular ground-glass infiltrates consistent with interstitial pneumonitis,s/p high-dose IV steroids now on po prednisone 60mg daily Case discussed with pulmonology will wean prednisone 10 mg q.3 days Will obtain home O2 evaluation , recommend out of bed and ambulation, patient does not use assistive device at home. 2. muscle spasm/ back pain: Stable pain,continue lidocaine patch 3.hypertension - stable, continue spironolactone, and clonidine 4. CHF - no exacerbation noted echo showed EF 65-70% BNP less than 10, continue Lasix 40 mg home dose. 5. Tobacco use disorder continue nicotine patch, strongly advised to abstain from smoking 6. Mood Disorder cont. paxil and welbutrin. 7.Obesity contributing to back pain, hypertension strongly recommended to follow low-calorie diet. dvt prophylax : On lovenox
[2021-01-28] MEDS: 0.9 % Sodium Chloride Flush 3 ML SYRINGE IVFLUSH ×2 (00:48→09:24)
[2021-01-28 03:01] VITALS: BP 148/86; PULSE 99; RESP 17; TEMP 36.7; O2SAT 96
[2021-01-28] MEDS: Enoxaparin Sodium 40 MG/0.4 ML SYRINGE SUBCUT (05:59)
[2021-01-28] MEDS: Omeprazole 20 MG CAPSULE.DR PO (05:59)
[2021-01-28] MEDS: Albuterol/Iprat 2.5/0.5MG 3 ML AMPUL.NEB INHALE ×3 (07:28→15:03)
[2021-01-28 07:29] VITALS: PULSE 78; O2SAT 94
[2021-01-28 07:30] VITALS: BP 158/97; PULSE 86; RESP 20; TEMP 36.1; O2SAT 100
[2021-01-28 09:19] VITALS: PULSE 94; PULSE 97; O2SAT 98
[2021-01-28] MEDS: Nicotine 14 MG PATCH.TD24 TRANSDERMA (09:24)
[2021-01-28] MEDS: PARoxetine HCL 40 MG TABLET PO (09:24)
[2021-01-28] MEDS: cloNIDine HCL 0.1 MG TABLET PO (09:24)
[2021-01-28] MEDS: predniSONE 10 MG TABLET 50 MG PO (09:24)
[2021-01-28] MEDS: Buprenorphine/Naloxone 8/2 mg FILM 2 FILM SUBLINGUAL (09:25)
[2021-01-28] MEDS: Tamsulosin HCL 0.4 MG CAPSULE 0.8 MG PO (09:25)
[2021-01-28] MEDS: buPROPion HCl XL 300 MG TAB.ER.24H PO (09:25)
[2021-01-28] MEDS: ARIPiprazole 5 MG TABLET PO (09:25)
[2021-01-28] MEDS: Furosemide 40 MG TABLET PO (09:25)
[2021-01-28] MEDS: Spironolactone 25 MG TABLET PO (09:25)
[2021-01-28] MEDS: buPROPion HCl XL 150 MG TAB.ER.24H PO (09:25)
[2021-01-28 11:02] VITALS: BP 138/95; PULSE 91; PULSE 94; RESP 20; TEMP 35.6; O2SAT 96; O2SAT 97
--- NOTE | 2021-01-28 13:55 | PM.DS ---
DS: Providers Provider Date of Service: 01/30/21 Date of admission: 01/21/21 04:52 Primary care physician: Unknown Physician Consults: 01/22/21 15:21 Consult to Pulmonology Routine Consulting Provider: Willis Parra Reason for consultation: Acute hypoxemic respiratory failure secondary to pneumonia/COPD exacerbatio 01/24/21 07:13 Consult to Cardiology Routine Consulting Provider: Ren Reina Reason for consultation: ? acute hypoxemic respiratory failure /chf Has provider been notified: No 01/24/21 07:16 Consult to Critical Care Routine Consulting Provider: Rene Costa Reason for consultation: acute hypoxemic respiratory failure/pneumonia Has provider been notified: Yes DS: Diagnosis Discharge Diagnosis (1) Acute respiratory failure with hypoxia: Status: Acute (2) Acute interstitial pneumonitis: Status: Acute (3) ARDS (adult respiratory distress syndrome): Status: Acute (4) Thoracic back pain: Status: Acute DS: Medications Discharge Medications Home Medications: Home Medications Medication Instructions Recorded Confirmed Nicotrol 1 inh INHALATION DIRECTED PRN 01/21/21 01/21/21 Trelegy Ellipta 1 puff INHALATION DAILY 01/21/21 01/21/21 aripiprazole 1 tab PO DAILY 01/21/21 01/21/21 buprenorphine-naloxone [Suboxone] 2 strip SUBLINGUAL DAILY 01/21/21 01/21/21 bupropion HCl 1 tab PO QAM 01/21/21 01/21/21 bupropion HCl 1 tab PO QAM 01/21/21 01/21/21 clonidine HCl 1 tab PO BID 01/21/21 01/21/21 furosemide 1 tab PO DAILY 01/21/21 01/21/21 hydroxyzine HCl 25 mg PO Q8H PRN 01/21/21 01/21/21 omeprazole 1 cap PO DAILY 01/21/21 01/21/21 paroxetine HCl 1 tab PO QAM 01/21/21 01/21/21 spironolactone 1 tab PO DAILY 01/21/21 01/21/21 tamsulosin 2 cap PO DAILY 01/21/21 01/21/21 Previous Rx's Medication Instructions Recorded prednisone 10 mg PO DAILY #120 tab 01/28/21 DS: Summary Hospital Course Hospital Course: History of presenting illness Chief Complaint: Difficulty breathing, back pain This is a 55-year-old male with past medical history of COPD, hypertension, TBI, CHF who presents to the hospital with complaints of difficulty breathing as well as back pain. Patient reports that his breathing difficulty started about 2 weeks ago, worsened over the course of 2 weeks, associated with cough, sputum production, no fever but chills and sweats. He also moved afraid about a week and half ago on this when he is back started hurting him associated with spasm. Localized to the middle back, 9/10, nonradiating to arms or legs, no weakness numbness or tingling in his extremities. Patient denies any sick contacts or recent travel. Denies any orthopnea PND, no urinary symptoms and no lower extremity edema. No headache change in vision or dizziness. On arrival to the ED patient hemodynamically stable with a temperature of 99.2?, heart rate of 101, respiratory rate of 22, blood pressure of 148/80, satting 90% on room air. Patient apparently did dip to the low 80s on ambulation. Lab significant for WBC count of 11.3, hemoglobin of 12.2, PT of 13.8, INR of 1.2, BUN of 17, creatinine of 1.27 which is around his baseline, alk-phos of 170, and LDH of 335. COVID-19 negative. Chest x-ray shows heterogeneous right basilar opacity suspicious for pneumonia Hospital course 55-year-old male with past medical history of COPD who presents to the hospital with difficulty breathing cough as well as muscle spasm and back pain. Patient admitted with diagnosis of acute hypoxic respiratory failure initially diagnosed to have sepsis secondary to community-acquired pneumonia and treated with IV antibiotic, But patient had no response and since had no leukocytosis, low procalcitonin level, therefore antibiotic were discontinued CT chest showed bilateral patchy peribronchial vascular ground-glass infiltrate consistent with interstitial pneumonitis therefore patient placed on high-dose IV steroids with good response, therefore being discharged home on by mouth prednisone tapering dose, home O2 eval obtained prior to discharge and patient qualifies for 2 L of oxygen with activity, patient has been recommended to have close outpatient follow-up with pulmonology He has been strongly advised to lose weight due to obesity and follow low-calorie diet, he has been strongly advised to abstain from smoking and recommended to continue nicotine replacement therapy. Patient complained of muscle spasm/ back pain therefore was treated with lidocaine patch back pain improved In regard to chronic medical issues including hypertension, congestive heart failure with EF 65-70% patient was continued on home medications Lasix spironolactone and clonidine For Mood Disorder he has been continued on paxil and welbutrin. Time Spent with Patient Time attestation: Total time spent providing and/or coordinating discharge services: Discharge coordination time: Greater than 30 minutes Quality: Stroke Does the patient have a stroke diagnosis?: No Physical Exam Vital Signs: Vital Signs: Last Vital Signs Temp 96.1 F L 01/28/21 11:02 Pulse 91 01/28/21 11:02 Resp 20 01/28/21 11:02 BP 138/95 H 01/28/21 11:02 Pulse Ox 97 01/28/21 11:02 Body Mass Index 39.9 General resting comfortably in no acute distress. Neck supple no JVD. CVS regular rate rhythm, Respiratory lungs clear to auscultation, no respiratory distress, no wheeze, no rhonchi. Gastrointestinal abdomen soft, nontender, bowel sounds audible, no guarding , no rigidity. Extremities no clubbing, cyanosis or edema. Neuro nonfocal , speech clear. Skin no rash Discharge Plan Discharge Patient Disposition: Home, Self-Care Discharge Diagnosis: Acute hypoxic respiratory failure Interstitial pneumonitis Referrals: roderick louise [Other] - 1 Week Physician,Unknown [Physician] - 1 Week Discharge Medications: New prednisone 10 mg tablet 10 mg PO DAILY Qty: 120 RF: 0 Continued furosemide 40 mg tablet 1 tab PO DAILY RF: 0 bupropion HCl 150 mg tablet sustained-release 12 hr 1 tab PO QAM RF: 0 clonidine HCl 0.1 mg tablet 1 tab PO BID RF: 0 Nicotrol 10 mg cartridge 1 inh inhalation DIRECTED PRN (Reason: Nicotine Cravings) RF: 0 spironolactone 25 mg tablet 1 tab PO DAILY RF: 0 tamsulosin 0.4 mg capsule 2 cap PO DAILY RF: 0 omeprazole 20 mg capsule,delayed release(DR/EC) 1 cap PO DAILY RF: 0 hydroxyzine HCl 25 mg tablet 25 mg PO Q8H PRN (Reason: Anxiety) RF: 0 paroxetine HCl 40 mg tablet 1 tab PO QAM RF: 0 aripiprazole 5 mg tablet 1 tab PO DAILY RF: 0 bupropion HCl 300 mg tablet extended release 24 hr 1 tab PO QAM RF: 0 buprenorphine-naloxone [Suboxone] 8-2 mg film 2 strip sublingual DAILY RF: 0 Trelegy Ellipta 200-62.5-25 mcg blister with device 1 puff inhalation DAILY RF: 0 Discontinued ibuprofen 600 mg tablet 1 tab PO Q8H PRN (Reason: pain) RF: 0 Discharge Orders: Discharge Order (Routine); Ordered 01/28/21 Ordered By: Moses Saavedra Diet: low fat, low cholesterol Activity on Discharge: As tolerated Stand Alone Forms: Patient Portal Discharge page Care Plan Goals: You have interstitial pneumonitis causing low oxygen, therefore you were discharged home on 2 L of oxygen with activity and use prednisone as directed 5 tablets of 10 mg daily for 3 days, then take 4 tablets of 10 mg daily for 3 days, then 3 tablets daily for 3 days and then continue taking 2 tablets daily and follow-up with pulmonology for further instructions, avoid using Advil Motrin while you are on prednisone, follow low-calorie diet and continue all home medications Health Concerns: Interstitial pneumonitis, tobacco use disorder, morbid obesity please follow-up with loan review officer Dr. Parra in 7-10 days Use oxygen 2 L with activity Return to check with any worsening shortness of breath, follow low-carbohydrate and low-fat diet, do activity as tolerated Plan of Treatment: Outpatient follow-up with primary care physician and loan review officer Dr. Parra in next 7-10 days Assessment: As above Discharge Date/Time: 01/28/21 17:35
--- NOTE | 2021-01-28 14:38 | MHC.CM.PN ---
pt dcd today back to [facility] verified address as [address] [place] [address] pt will be given an 02m tank as arranged thru respiratory
--- NOTE | 2021-01-28 14:52 | MHC.CM.PN ---
chair weston arranged for pt
[2021-01-28 15:20] VITALS: BP 156/88; PULSE 112; RESP 19; TEMP 35.9; O2SAT 96
== END 2021-01-28 17:35 | disposition home or self-care (01) | DRG 871 ==
LOC: HO.ED 03:08 → HO.EDOVER 05:07 → HO.S3 05:27 → HO.IMC 01-24 14:25
PROVIDERS: Internal Medicine; Admitting Provider Internal Medicine; Emergency Provider Emergency Medicine; PCP Internal Medicine; Visit Provider Hospitalist
DX: A41.9 Sepsis, unspecified organism (principal); J80 Acute respiratory distress syndrome; J44.1 Chronic obstructive pulmonary disease with (acute) exacerbation; J44.0 Chronic obstructive pulmonary disease with (acute) lower respiratory infection; J84.9 Interstitial pulmonary disease, unspecified; E66.01 Morbid (severe) obesity due to excess calories; Z68.39 Body mass index [BMI] 39.0-39.9, adult; I11.0 Hypertensive heart disease with heart failure; M62.830 Muscle spasm of back; Z20.822 Contact with and (suspected) exposure to COVID-19; Z87.820 Personal history of traumatic brain injury; Z87.891 Personal history of nicotine dependence; Z79.899 Other long term (current) drug therapy
CPT/HCPCS: 36415; 36600; 71045; 71250; 80048; 80076; 82728; 83605; 83615; 83690; 83735; 83880; 84145; 84484; 85025; 85027; 85610; 85730; 87040; 87633; 87635; 93005; 93306; 94640; 96365; 96366; 96368; 96375; 99285; J0456; J0696; J1650; J1940; J2920; J2930; Q9957

== ENCOUNTER 2021-02-08 08:21 | Observation (INO) | payer MEDICARE, MEDICAID, SELFPAY ==
[2021-02-08] VITALS (10 sets, daily range): BP systolic 110–144; BP diastolic 70–93; PULSE 86–92; RESP 12–20; TEMP 36.1–36.8; O2SAT 86–98; BMI 35.4
--- NOTE | ~2021-02-08 | CT_ITS ---
EXAMINATION: CT CHEST WITHOUT CONTRAST CLINICAL INFORMATION: Hypoxia. Chest pain. Rule out pulmonary embolus. COMPARISON: CT chest 01/23/2021. TECHNIQUE: Multidetector volumetric CT imaging of the chest was done. Axial MIP volume rendering provided. Sagittal and coronal reformatted images were obtained. This CT examination was performed using dose optimization techniques as appropriate, variously including the following: *Automated exposure control *Adjustment of mA and/or kV according to patient size (this includes techniques or standardized protocols for targeted exams where dose is matched to indication/reason for exam; i.e. extremities or head) *Use of iterative reconstruction technique DLP: 535 mGy-cm FINDINGS: Lungs: Multifocal patchy groundglass, velar and fine pulmonary reticular opacities are present with mild bibasilar subpleural sparing. Findings are slightly increased in extent compared with 01/23/2021, notably within the lower lung zones. No discrete pulmonary nodules or masses are identified. No bronchiectasis or peribronchial wall thickening is visualized. Mediastinum: Visualized thyroid is normal in appearance. Partial visualization is made of at least moderate diffuse coronary artery calcific atherosclerosis and mild scattered aortic calcific atherosclerosis. The heart size is normal. No pericardial thickening or fluid collections are identified. No mediastinal lymphadenopathy. CHEST WALL: No axillary lymphadenopathy. Visualized abdomen: The hepatic capsular contour demonstrates nodularity suspicious for cirrhosis. Cholecystectomy clips are identified. The spleen is enlarged measuring 16 cm in maximum AP dimension. No adrenal lesions are identified. Skeletal: No suspicious skeletal lesions. Chronic appearing compression deformities of the L2, L1, T12 and T9 and T7 vertebral bodies. Findings are unchanged compared to CT of the thorax 01/23/[address] abdomen pelvis 07/10/2019. CT/CT chest wo con IMPRESSION: 1. Extensive bilateral multifocal groundglass, airspace and fine pulmonary reticular opacities mildly increased in extent compared with 01/23/2021 suspicious for viral or atypical infectious etiologies. No focal pulmonary consolidation. 2. Moderate diffuse coronary artery calcific atherosclerosis. 3. Cirrhosis. 4. Splenomegaly. 5. Of note, this examination constitutes an unenhanced CT of the chest. Consequently, this examination is insensitive in the detection of pulmonary emboli. 6. Chronic benign-appearing osteoporotic vertebral body compression deformities without gross retropulsion at T7, T9, T12, L1, L2.
--- NOTE | ~2021-02-08 | NM_ITS ---
EXAMINATION: NM LUNG IMAGE PERFUSION CLINICAL INFORMATION: Hypoxia, SOB. COMPARISON: CT chest 02/08/2021 TECHNIQUE: Following intravenous administration of 4 mCi of 99m Tc MAA, imaging of both lungs are obtained in multiple projections. FINDINGS: Normal perfusion seen to all segments of the lungs without any focal segmental or subsegmental defect. Ventilation study was not performed.. NM/NM pul perfusion IMPRESSION: Normal perfusion scan.
--- NOTE | ~2021-02-08 | XR_ITS ---
EXAMINATION: XR CHEST CLINICAL INFORMATION: Shortness of breath and wheezing COMPARISON: Chest CT January 23, 2021 and chest x-ray January 21, 2021 TECHNIQUE: 2 views of the chest were obtained. FINDINGS: Cardiac silhouette is stable. Patchy bilateral airspace disease is again appreciated. When compared with chest x-ray from January 21, 2021 it appears relatively similar to minimally decreased in prominence. No gross lobar consolidation is identified. No pleural effusion or pneumothorax. Compression deformities of a few vertebral bodies are again identified. XR/XR chest 2V IMPRESSION: Stable to minimally improved patchy bilateral airspace disease.
--- NOTE | 2021-02-08 08:47 | ECG_ITS ---
Test Reason : SHORT OF BREATH Blood Pressure : / mmHG Vent. Rate : 089 BPM Atrial Rate : 089 BPM P-R Int : 160 ms QRS Dur : 084 ms QT Int : 360 ms P-R-T Axes : 031 013 001 degrees QTc Int : 438 ms Normal sinus rhythm Minimal voltage criteria for LVH, may be normal variant Borderline ECG When compared with ECG of 21-JAN-2021 03:00, Premature atrial complexes are no longer Present Referred By: Daphne Fields Electronically Signed By:Yoni Treadwell
--- NOTE | 2021-02-08 08:55 | ED_ITS ---
HPI - SOB/Dyspnea General Chief Complaint: Dyspnea Stated Complaint: SOB W/EXERTION, O2 @ 92% RA Time Seen by Provider: 02/08/21 08:27 Source: patient and EMS Mode of arrival: EMS Limitations: no limitations History of Present Illness HPI Narrative: 55-year-old male with a past medical history of COPD, hypertension, hyperlipidemia, heart failure, TBI, anxiety here with complaints of shortness of breath over the last 5-6 days worsened with exertion with fatigue and poor p.o. intake. Also complaining of some chest discomfort which is worsened with deep breathing and coughing. +nonproductive cough. No leg swelling or pain. No weight gain. Currently on a prednisone taper but unknown dosage. Using inhalers at home with continued shortness of breath. He has 2L of oxygen at home which on discharge she was instructed to use as needed. He tells me for the last 5-6 days he has had to use it around the clock. Of note, the patient was admitted to this facility January 21 through January 28 for acute respiratory failure secondary to pneumonia and COPD with associated interstitial pneumonitis. MD elicited complaint: shortness of breath Related Data Home Medications Medication Instructions Recorded Confirmed Nicotrol 1 inh INHALATION DIRECTED PRN 01/21/21 01/21/21 Trelegy Ellipta 1 puff INHALATION DAILY 01/21/21 01/21/21 aripiprazole 1 tab PO DAILY 01/21/21 01/21/21 buprenorphine-naloxone [Suboxone] 2 strip SUBLINGUAL DAILY 01/21/21 02/08/21 bupropion HCl 1 tab PO QAM 01/21/21 02/08/21 bupropion HCl 1 tab PO QAM 01/21/21 02/08/21 clonidine HCl 1 tab PO BID 01/21/21 01/21/21 furosemide 1 tab PO DAILY 01/21/21 02/08/21 hydroxyzine HCl 25 mg PO Q8H PRN 01/21/21 01/21/21 omeprazole 1 cap PO DAILY 01/21/21 02/08/21 paroxetine HCl 1 tab PO QAM 01/21/21 02/08/21 spironolactone 1 tab PO DAILY 01/21/21 01/21/21 tamsulosin 2 cap PO DAILY 01/21/21 01/21/21 Previous Rx's Medication Instructions Recorded prednisone 10 mg PO DAILY #120 tab 01/28/21 Allergies Allergy/AdvReac Type Severity Reaction Status Date / Time No Known Allergies Allergy Unverified 05/22/20 19:42 [No Known Allergies*] Review of Systems Review of Systems: Yes all other systems are reviewed and are negative Constitutional: Constitutional: Reports no additional constitutional complaints, Denies body ache(s), Denies chills, Reports fatigue, Denies fever(s), Denies headache(s), Reports poor appetite and Denies weakness Eyes: Eyes: Reports no additional eye complaints and Denies change in vision ENT: Reports system reviewed and no additional complaints, except as documented, Denies dizziness, Denies headache(s), Denies nasal congestion, Denies nasal discharge and Denies neck pain Cardiovascular: Cardiovascular: Reports no additional cardiovascular complaints, Reports chest pain, Denies leg edema and Reports dyspnea Respiratory: Respiratory: Reports no additional respiratory complaints, Reports cough and Reports dyspnea Gastrointestinal: Gastrointestinal: Reports no additional gastrointestinal complaints, Denies abdominal pain, Denies diarrhea, Denies nausea and Denies vomiting Genitourinary: Genitourinary: Denies urinary incontinence Musculoskeletal: Musculoskeletal: Reports no additional musculoskeletal complaints, Denies back pain, Denies arthralgias, Denies joint swelling, Denies neck pain, Denies numbness and Denies tingling Integumentary/Breasts: Skin/Breast: Reports system reviewed and no additional complaints, except as docu and Denies rash Neurologic: Reports system reviewed and no additional complaints, except as documented, Denies Abnormal speech present, Denies dizziness, Denies headache(s), Denies numbness, Denies tingling and Denies weakness Endocrine: Endocrine: Reports fatigue PMFSH Past Medical History Attestation statement: The following information was validated with the patient. Source: old records reviewed and nursing notes reviewed Medical History Acute interstitial pneumonitis Anxiety ARDS (adult respiratory distress syndrome) ARDS (adult respiratory distress syndrome) CHF (congestive heart failure) Community acquired pneumonia COPD (chronic obstructive pulmonary disease) COPD exacerbation COPD exacerbation Hypertension Obesity (BMI 35.0-39.9 without comorbidity) KATHYA (obstructive sleep apnea) Pneumonia Sepsis TBI (traumatic brain injury) Surgical History No significant past surgical history Social History Social History Household Members: None Housing: Apartment Housing Other:: Sober House Alcohol intake: never Patient Tobacco Use Status: Former Tobacco user Cigarette Packs Per Day: 0.5 Cigarettes Per Day: 8 Smoked in Last 30 Days: Yes Second Hand Smoke Exposure: Yes Use of substances other than those prescribed or required for medical reasons: No Substance Use Type: Former Substance User Advance Directives: Yes Advance Directives Information Provided: Yes Advance Directives on File: No service: No Current occupational status: unemployed Physical Exam Vital Signs: Vital Signs: Last Vital Signs Temp 98.1 F 02/08/21 08:28 Pulse 86 02/08/21 15:30 Resp 16 02/08/21 15:30 BP 110/74 02/08/21 15:30 Pulse Ox 93 02/08/21 15:30 Oxygen Flow Rate 3 02/08/21 08:28 Body Mass Index 35.4 Const: General: cooperative, healthy appearing, comfortable and no acute distress Orientation/consciousness: patient oriented x3 Limitations: no limitations HENMT: Head: Yes normal to inspection Ears: hearing grossly normal bilaterally General nose exam: Normal external nose present Face and si nus: Yes normal facial exam Mouth: Normal oral and palatal mucosa present Throat: Yes posterior oropharynx normal Eyes: General: appearance normal, both eyes and all related structures Pupils: Equal, round and reactive pupils present Neck: Neck: Yes normal visual inspection Chest: Chest palpation & inspection: normal inspection of the chest Resp: Other: Diminished breath sounds Mild tachypnea noted with exertion and speaking. Cardio: Rate: regular rate Rhythm: regular rhythm Peripheral pulses: Peripheral pulses 2+ throughout GI: Inspection: Yes normal to inspection Palpation (GI): Soft to palpation and nontender Auscultation: normal bowel sounds Back/Spine/Pelvis: Thoracic/Lumbar Spine: thoracic and lumbar spine normal to inspection Skin: General skin exam: no rashes or lesions noted Neuro: General: patient oriented x3, no focal motor deficits and normal sensation to monofilament Cranial nerves: Yes Equal, round and reactive pupi ls present Cognition (Neuro): normal cognition Speech: No Abnormal speech present Gait exam (Neuro): Normal gait present Motor exam (neuro): 5/5 motor strength present throughout Extrem: General: Yes normal to inspection, Yes no pedal edema and Yes no calf tenderness Course Course Course Narrative: 55-year-old male here with shortness of breath, dry cough, chest discomfort with deep breathing and coughing, fatigue, poor appetite for the last 5-6 days using his oxygen at all times. Recent admit for COPD exacerbation, interstitial pneumonitis and pneumonia. Currently on a prednisone taper (currently 10mg daily). Patient and he did feel improved when he was discharged from the hospital on January 31 however feels like over the last 5-6 days he has gotten worse. On arrival the patient appears well. He does have some mild tachypnea with moving and speaking but his lung sounds are diminished with a stable saturation on 2 L of oxygen. No leg swelling or pain. All other vitals within normal limits. Will need labs, EKG, chest x-ray, duoneb. 1100-chest x-ray shows improving opacity. Labs are unremarkable. EKG shows no ischemic changes. Patient tells me he is feeling mildly improved after receiving a DuoNeb. Will ambulate with a pulse oximeter to evaluate respiratory status and oxygen saturation. 1115-Patient de-satted to 86% on 2 L NC with tachypnea noted with exertion per nursing. Consider PE in the setting or recent admission with prolonged immobilization and decreased activity since being home. Will get CTA chest to eval for PNA and r/o PE. 1200-nursing having difficulty obtaining IV access. Left EJ placed at the bed side. Patient tolerated well. 1300-Per radiologist cannot use EJ line for CTA. Discussed with attending Dr Conrad. Multiple risk factors for PE. VQ scan ordered. Ct chest w/o contrast ordered. 1525-VQ scan negative for PE. CT chest shows extensive bilateral multifocal ground-glass airspace and fine pulmonary reticular opacities mildly increased when compared to previous suspicious for viral or atypical infectious etiologies. At this time infection is suspected. Antibiotics ordered. Discussed with Dr Cline who accepted admission. Procedures EJ/Peripheral Line Neck L: Time Out Performed: No Skin Cleansed in Sterile Fashion: Yes Size (gauge): 20 IV Secured and Dressing Applied: Yes Patient Tolerated Procedure: well MDM - SOB/Dyspnea MDM Narrative Medical decision making narrative: COPD exacerbation, pneumonia, PE, CHF exacerbation Medical Records Attestation: I reviewed the patient's medical records. Lab Data Attestation: I reviewed the patient's lab results. Result diagrams: 02/08/21 10:19 02/08/21 10:19 Labs: Lab Results 02/08/21 02/08/21 02/08/21 Range/Units 10:19 10:19 10:19 WBC 9.2 (4.8-10.8) X10*3/uL RBC 4.33 L (4.60-5.80) X10*6/uL Hgb 12.4 L (14.0-18.0) g/dl Hct 37.8 L (42-52) % MCV 87.3 (80-98) fL MCH 28.6 (27.0-33.0) pg MCHC 32.8 (31.0-36.0) g/dl RDW 15.2 (11.0-16.0) % Plt Count 110 L (160-400) X10*3/uL MPV 10.0 (9.4-12.4) fL Immature Gran % (Auto) 0.5 H (0.0-0.4) % Neut % (Auto) 78.6 H (45-73) % Lymph % (Auto) 17.2 L (20-40) % Bos[place] % (Auto) 2.7 (2-11) % Eos % (Auto) 0.9 (0-4) % Baso % (Auto) 0.1 (0-2) % Lymph # (Auto) 1.6 (1.2-4.9) X10*3/uL [place] # (Auto) 0.3 (0.1-1.2) X10*3/uL Eos # (Auto) 0.1 (0.0-0.4) X10*3/uL Baso # (Auto) 0.0 (0.0-0.2) X10*3/uL Abs Immat Gran (auto) 0.05 H (0.00-0.03) X10*3/uL Absolute Neuts (auto) 7.2 (2.0-8.3) X10*3/uL Absolute Nucleated RBC 0.000 (0.0-0.012) X10*3/uL Nucleated RBC % (auto) 0.0 (0.0-0.2) /100WBC Smear Tech's Comments VERIFIED PT 12.4 (10.8-13.0) SEC INR 1.0 (0.9-1.1) D-Dimer 248 NG/ML Sodium 140 (135-145) mmol/L Potassium 3.6 (3.3-5.1) mmol/L Chloride 101 (96-108) mmol/L Carbon Dioxide 28 (22-29) mmol/L Anion Gap 15 (12-20) BUN 16 (9-16) mg/dL Creatinine 1.12 (0.5-1.4) mg/dL Estim Creat Clear Calc 88.4 Estimated GFR > 60 Random Glucose 158 H (60-115) mg/dL Lactic Acid (0.5-2.0) mmol/L Calcium 9.0 (8.4-10.2) mg/dL Magnesium 2.1 (1.6-2.6) mg/dL Total Bilirubin 0.7 (0.0-1.0) mg/dL Direct Bilirubin 0.3 (0.0-0.5) mg/dL AST 8 D (5-37) U/L ALT 13 (0-40) U/L Alkaline Phosphatase 153 H (39-117) U/L Troponin I High Sens (<3.5-35.0) ng/L B-Natriuretic Peptide (<100) pg/mL Total Protein 6.6 (6.5-8.0) g/dL Albumin 3.7 (3.5-5.0) g/dL COVID-19 (YADIRA) (Negative) COVID-19 Clin Com 02/08/21 02/08/21 02/08/21 Range/Units 10:19 10:19 13:37 WBC (4.8-10.8) X10*3/uL RBC (4.60-5.80) X10*6/uL Hgb (14.0-18.0) g/dl Hct (42-52) % MCV (80-98) fL MCH (27.0-33.0) pg MCHC (31.0-36.0) g/dl RDW (11.0-16.0) % Plt Count (160-400) X10*3/uL MPV (9.4-12.4) fL Immature Gran % (Auto) (0.0-0.4) % Neut % (Auto) (45-73) % Lymph % (Auto) (20-40) % Bosque % (Auto) (2-11) % Eos % (Auto) (0-4) % Baso % (Auto) (0-2) % Lymph # (Auto) (1.2-4.9) X10*3/uL Bosque # (Auto) (0.1-1.2) X10*3/uL Eos # (Auto) (0.0-0.4) X10*3/uL Baso # (Auto) (0.0-0.2) X10*3/uL Abs Immat Gran (auto) (0.00-0.03) X10*3/uL Absolute Neuts (auto) (2.0-8.3) X10*3/uL Absolute Nucleated RBC (0.0-0.012) X10*3/uL Nucleated RBC % (auto) (0.0-0.2) /100WBC Smear Tech's Comments PT (10.8-13.0) SEC INR (0.9-1.1) D-Dimer NG/ML Sodium (135-145) mmol/L Potassium (3.3-5.1) mmol/L Chloride (96-108) mmol/L Carbon Dioxide (22-29) mmol/L Anion Gap (12-20) BUN (9-16) mg/dL Creatinine (0.5-1.4) mg/dL Estim Creat Clear Calc Estimated GFR Random Glucose (60-115) mg/dL Lactic Acid 1.5 (0.5-2.0) mmol/L Calcium (8.4-10.2) mg/dL Magnesium (1.6-2.6) mg/dL Total Bilirubin (0.0-1.0) mg/dL Direct Bilirubin (0.0-0.5) mg/dL AST (5-37) U/L ALT (0-40) U/L Alkaline Phosphatase (39-117) U/L Troponin I High Sens < 3.5 (<3.5-35.0) ng/L B-Natriuretic Peptide 17 (<100) pg/mL Total Protein (6.5-8.0) g/dL Albumin (3.5-5.0) g/dL COVID-19 (YADIRA) Negative (Negative) COVID-19 Clin Com See Note Imaging Data Chest x-ray: Attestation: I personally reviewed and interpreted this imaging study as follows: Radiologist's impression: EXAMINATION: XR CHEST CLINICAL INFORMATION: Shortness of breath and wheezing COMPARISON: Chest CT January 23, 2021 and chest x-ray January 21, 2021 TECHNIQUE: 2 views of the chest were obtained. FINDINGS: Cardiac silhouette is stable. Patchy bilateral airspace disease is again appreciated. When compared with chest x-ray from January 21, 2021 it appears relatively similar to minimally decreased in prominence. No gross lobar consolidation is identified. No pleural effusion or pneumothorax. Compression deformities of a few vertebral bodies are again identified. XR/XR chest 2V IMPRESSION: Stable to minimally improved patchy bilateral airspace disease. VQ scan: Attestation: I personally reviewed and interpreted this imaging study as follows: Radiologist's impression: EXAMINATION: NM LUNG IMAGE PERFUSION CLINICAL INFORMATION: Hypoxia, SOB. COMPARISON: CT chest 02/08/2021 TECHNIQUE: Following intravenous administration of 4 mCi of 99m Tc MAA, imaging of both lungs are obtained in multiple projections. FINDINGS: Normal perfusion seen to all segments of the lungs without any focal segmental or subsegmental defect. Ventilation study was not performed.. NM/NM pul perfusion IMPRESSION: Normal perfusion scan. CT scan - chest: Attestation: I personally reviewed and interpreted this imaging study as follows: Radiologist's impression: IMPRESSION: 1. Extensive bilateral multifocal groundglass, airspace and fine pulmonary reticular opacities mildly increased in extent compared with 01/23/2021 suspicious for viral or atypical infectious etiologies. No focal pulmonary consolidation. 2. Moderate diffuse coronary artery calcific atherosclerosis. 3. Cirrhosis. 4. Splenomegaly. 5. Of note, this examination constitutes an unenhanced CT of the chest. Consequently, this examination is insensitive in the detection of pulmonary emboli. 6. Chronic benign-appearing osteoporotic vertebral body compression deformities without gross retropulsion at T7, T9, T12, L1, L2. ECG Data Attestation: I personally reviewed and interpreted this ECG as follows: ECG interpretation date: 02/08/21 ECG interpretation time: 09:30 Interpretation: NSR with rate 89, normal pr, normal qrs, normal qtc Critical Care Time Critical Care Time Critical Care Time: Yes Total Critical Care Time: 60 Attestation: Re-evaluation of respiratory status, placement of EJ line, discussion with attending, radiology and hospitalist Discharge Plan Discharge Clinical Impression: Hypoxia, Acute exacerbation of chronic obstructive airways disease, Pneumonia Patient Disposition: Admitted As Inpatient
[2021-02-08] MEDS: Albuterol/Iprat 2.5/0.5MG 3 ML AMPUL.NEB INHALE (09:13)
[2021-02-08 10:27] LABS: Basophils Percent Auto 0.1 % (0-2); Eosinophils Absolute Auto 0.1 X10*3/uL (0.0-0.4); Eosinophils Percent Auto 0.9 % (0-4); Hematocrit 37.8 % (42-52); Hemoglobin 12.4 g/dl (14.0-18.0); Imm Gran Abs Auto 0.05 X10*3/uL (0.00-0.03); Imm Gran Pct Auto 0.5 % (0.0-0.4); Lymphocytes Absolute Auto 1.6 X10*3/uL (1.2-4.9); Lymphocytes Percent Auto 17.2 % (20-40); MANUAL DIFF FLAG SCAN; Mean Corpuscular HGB Conc 32.8 g/dl (31.0-36.0); Mean Corpuscular Hemoglobin 28.6 pg (27.0-33.0); Mean Corpuscular Volume 87.3 fL (80-98); Monocytes Absolute Auto 0.3 X10*3/uL (0.1-1.2); Monocytes Percent Auto 2.7 % (2-11); Neutrophils Absolute Auto 7.2 X10*3/uL (2.0-8.3); Neutrophils Percent Auto 78.6 % (45-73); PLT CLUMP 1; Red Blood Count 4.33 X10*6/uL (4.60-5.80); Red Cell Distribution Width 15.2 % (11.0-16.0); SCAN SMEAR FLAG 1
[2021-02-08 10:31] LABS: Prothrombin Time 12.4 SEC (10.8-13.0)
[2021-02-08 10:47] LABS: Alanine Aminotransferase 13 U/L (0-40); Albumin Level 3.7 g/dL (3.5-5.0); Alkaline Phosphatase 153 U/L (39-117); Anion Gap 15 (12-20); Aspartate Amino Transferase 8 U/L (5-37); Bilirubin Direct 0.3 mg/dL (0.0-0.5); Bilirubin Total 0.7 mg/dL (0.0-1.0); Blood Urea Nitrogen 16 mg/dL (9-16); Carbon Dioxide 28 mmol/L (22-29); Chloride 101 mmol/L (96-108); Creatinine Clr Calc Pharmacy 88.4; Estimated Glomerular Filt Rate > 60; Glucose Random 158 mg/dL (60-115); Magnesium 2.1 mg/dL (1.6-2.6); Potassium 3.6 mmol/L (3.3-5.1); Sodium 140 mmol/L (135-145); Total Protein 6.6 g/dL (6.5-8.0)
[2021-02-08 10:51] LABS: Lactic Acid 1.5 mmol/L (0.5-2.0)
[2021-02-08 10:55] LABS: B Type Natriuretic Peptide 17 pg/mL (<100); Troponin-I High Sensitivity < 3.5 ng/L (<3.5-35.0)
[2021-02-08 11:00] LABS: Platelet Count 110 X10*3/uL (160-400); SLIDE REVIEW VERIFIED; White Blood Count 9.2 X10*3/uL (4.8-10.8)
--- NOTE | 2021-02-08 11:17 | PC.NURSE ---
AMBULATED PATIENT WITH 2 L O2, LOWEST O2 SAT READING WAS 86%. PT AWARE OF PLAN FOR CTA.
[2021-02-08 13:31] LABS: D Dimer 248 NG/ML
[2021-02-08 13:59] LABS: COVID-19 Test Negative (Negative); IDNOW Serial# 9DD0AD1C
[2021-02-08] MEDS: methylPREDNISolone Sod Succ 125 MG/2 ML VIAL IVPUSH (15:33)
--- NOTE | 2021-02-08 15:33 | PM.IMHP ---
History of Present Illness Date of Service: 02/08/21 Chief Complaint: Shortness of breath 55-year-old male with past medical history of COPD, hypertension, TBI, CHF recently admitted to the hospital from January 21 to and treated for respiratory failure due to intersitital pneumonitis, Heart failure and COPD exacerbation and sent home with home Oxygent that he is is supposed to be using on PRn basis at 2 liter, he reports that he has been using this continually. He essentially presents to the with progresive sob of breath, cough that is non productive and also c/o some chest discomfort with exertion. CXR shows improving Opacities, VQ scan is negative for PE, CT of chest shows hong ground glass opacity suspcious for viral process, he has no fever, WBC is normla, oxygen saturation is 97 on 3 liters. ED gave him Zosyn, Solumedrol and Vancomycin. Admission is requested because O2 dropped with ambulation. Presently his O2 sat is 98 percent during my evaluation and he looks very comfortable. Unfortunately he continues to smoke Review of Systems Review of Systems: Gen: no fever Resp: +sob, + cough CV: no chest, no GOMEZ, no leg edema GI: No n/v, no abd pain Neuro: No confusion Yes all other systems are reviewed and are negative [facility], LAT[facility] Medical History Acute interstitial pneumonitis Anxiety ARDS (adult respiratory distress syndrome) ARDS (adult respiratory distress syndrome) CHF (congestive heart failure) Community acquired pneumonia COPD (chronic obstructive pulmonary disease) COPD exacerbation COPD exacerbation Hypertension Obesity (BMI 35.0-39.9 without comorbidity) KATHYA (obstructive sleep apnea) Pneumonia Sepsis TBI (traumatic brain injury) Family history: reviewed and not pertinent Surgical History No significant past surgical history Social History Household Members: None Housing: Apartment Housing Other:: [facility] Alcohol intake: never Patient Tobacco Use Status: Former Tobacco user Cigarette Packs Per Day: 0.5 Cigarettes Per Day: 8 Smoked in Last 30 Days: Yes Second Hand Smoke Exposure: Yes Use of substances other than those prescribed or required for medical reasons: No Substance Use Type: Former Substance User Advance Directives: Yes Advance Directives Information Provided: Yes Advance Directives on File: No service: No Current occupational status: unemployed Meds Allergies Allergy/AdvReac Type Severity Reaction Status Date / Time No Known Allergies Allergy Unverified 05/22/20 19:42 [No Known Allergies*] Home Medications Medication Instructions Recorded Confirmed Last Taken Type Nicotrol 1 inh INHALATION DIRECTED PRN 01/21/21 01/21/21 Unknown History Trelegy Ellipta 1 puff INHALATION DAILY 01/21/21 01/21/21 Unknown History aripiprazole 1 tab PO DAILY 01/21/21 01/21/21 Unknown History buprenorphine-naloxone [Suboxone] 2 strip SUBLINGUAL DAILY 01/21/21 01/21/21 Unknown History bupropion HCl 1 tab PO QAM 01/21/21 01/21/21 Unknown History bupropion HCl 1 tab PO QAM 01/21/21 01/21/21 Unknown History clonidine HCl 1 tab PO BID 01/21/21 01/21/21 Unknown History furosemide 1 tab PO DAILY 01/21/21 01/21/21 Unknown History hydroxyzine HCl 25 mg PO Q8H PRN 01/21/21 01/21/21 Unknown History omeprazole 1 cap PO DAILY 01/21/21 01/21/21 Unknown History paroxetine HCl 1 tab PO QAM 01/21/21 01/21/21 Unknown History spironolactone 1 tab PO DAILY 01/21/21 01/21/21 Unknown History tamsulosin 2 cap PO DAILY 01/21/21 01/21/21 Unknown History Physical Exam Vital Signs and Narrative: Vital Signs: Last Vital Signs Temp 98.1 F 02/08/21 08:28 Pulse 86 02/08/21 15:30 Resp 16 02/08/21 15:30 BP 110/74 02/08/21 15:30 Pulse Ox 93 02/08/21 15:30 Oxygen Flow Rate 3 02/08/21 08:28 Body Mass Index 35.4 Const: Other: Constitutional Awake and Alert, No apparent distress, he looks Neck Supple, No lymphadenopathy Cardiovascular RRR, No M/R/G, S1 S2, No S3 S4, No pedal edema Respiratory Lungs clear, No respiratory distress, normal efforts Gastrointestinal Non tender, Non-distended Skin No rash Neurological Alert & oriented x3 Psychological Appropriate affect Results Labs CBC and Chem 7: 02/08/21 10:19 02/08/21 10:19 Labs: Laboratory Results - last 24 hr 02/08/21 02/08/21 02/08/21 10:19 10:19 10:19 MCV 87.3 MCH 28.6 MCHC 32.8 RDW 15.2 Plt Count 110 L MPV 10.0 Immature Gran % (Auto) 0.5 H Neut % (Auto) 78.6 H Lymph % (Auto) 17.2 L Kern % (Auto) 2.7 Eos % (Auto) 0.9 Baso % (Auto) 0.1 Lymph # (Auto) 1.6 Kern # (Auto) 0.3 Eos # (Auto) 0.1 Baso # (Auto) 0.0 Abs Immat Gran (auto) 0.05 H Absolute Neuts (auto) 7.2 Absolute Nucleated RBC 0.000 Nucleated RBC % (auto) 0.0 Smear Tech's Comments VERIFIED PT 12.4 INR 1.0 D-Dimer 248 Anion Gap 15 Estim Creat Clear Calc 88.4 Estimated GFR > 60 Random Glucose 158 H Lactic Acid Calcium 9.0 Magnesium 2.1 Total Bilirubin 0.7 Direct Bilirubin 0.3 AST 8 D ALT 13 Alkaline Phosphatase 153 H Troponin I High Sens B-Natriuretic Peptide Total Protein 6.6 Albumin 3.7 COVID-19 (YADIRA) COVID-[employer] 02/08/21 02/08/21 02/08/21 10:19 10:19 13:37 MCV MCH MCHC RDW Plt Count MPV Immature Gran % (Auto) Neut % (Auto) Lymph % (Auto) Kern % (Auto) Eos % (Auto) Baso % (Auto) Lymph # (Auto) Kern # (Auto) Eos # (Auto) Baso # (Auto) Abs Immat Gran (auto) Absolute Neuts (auto) Absolute Nucleated RBC Nucleated RBC % (auto) Smear Tech's Comments PT INR D-Dimer Anion Gap Estim Creat Clear Calc Estimated GFR Random Glucose Lactic Acid 1.5 Calcium Magnesium Total Bilirubin Direct Bilirubin AST ALT Alkaline Phosphatase Troponin I High Sens < 3.5 B-Natriuretic Peptide 17 Total Protein Albumin COVID-19 (YADIRA) Negative COVID-19 Clin Com See Note Imaging Radiologist's Impressions: Impressions Chest X-Ray 02/08/21 08:47 IMPRESSION: Stable to minimally improved patchy bilateral airspace disease. Chest CT 02/08/21 11:17 IMPRESSION: 1. Extensive bilateral multifocal groundglass, airspace and fine pulmonary reticular opacities mildly increased in extent compared with 01/23/2021 suspicious for viral or atypical infectious etiologies. No focal pulmonary consolidation. 2. Moderate diffuse coronary artery calcific atherosclerosis. 3. Cirrhosis. 4. Splenomegaly. 5. Of note, this examination constitutes an unenhanced CT of the chest. Consequently, this examination is insensitive in the detection of pulmonary emboli. 6. Chronic benign-appearing osteoporotic vertebral body compression deformities without gross retropulsion at T7, T9, T12, L1, L2. Pulmonary Perfusion Imaging 02/08/21 12:59 IMPRESSION: Normal perfusion scan. Assessment and Plan (1) Acute exacerbation of chronic obstructive airways disease: Status: Acute (2) Acute interstitial pneumonitis: Status: Acute 55/ with COPD, chronic respiratory failure on home O2. He was recently discharge from the hosptial following sepsis, PNA and COPD and discharged home with home O2 and presents complaining of being short of breath even with noraml O2 on oxygen. CXR shows improving airway disease from recent hospitalization and CT shows ground opacity compatible with viral process. He has no fever, WBC is normal. Dyspnea due to intersitial pneumonitis, At this point there is no evidence of bacterial pneumonia and therefore will continue antibiotics as started in ED. His symptoms appear chronic or residual from recent hospitalization and intersitial pneumoni. Will continue Oxygen, Bronchodilators and add Prednisone. He may benefit from pulmonary rehab. I will get pulmoology to assess him in the morning. 2. muscle spasm/ back pain: Stable pain,continue lidocaine patch 3.hypertension--continue spironolactone, and clonidine when med rec done 4. CHF--No exacerbation and Normal BNP, recent echo showed EF 65-70% BNP less than 10, continue Lasix 40 mg home dose. 5. Tobacco use disorder continue nicotine patch, strongly advised to abstain from smoking 6. Mood Disorder cont. paxil and welbutrin. 7.Obesity contributing to back pain, hypertension strongly recommended to follow low-calorie diet and exercise as tolerated Lovenox for DVT prophylaxis
[2021-02-08] MEDS: Piperacillin Sodium/Tazobactam 4.5 GM in 0.9 % Sodium Chloride 100 ML IV (16:02)
[2021-02-08] MEDS: vancomycin HCL 1,000 MG, vancomycin HCL 750 MG in 0.9 % Sodium Chloride 500 ML 267.5 MG IV (16:58)
--- NOTE | 2021-02-08 21:44 | PC.NURSE ---
report given to RN on floor, pt ready for transport.
[2021-02-08] MEDS: 0.9 % Sodium Chloride Flush 3 ML SYRINGE IVFLUSH (22:21)
[2021-02-08] MEDS: Enoxaparin Sodium 40 MG/0.4 ML SYRINGE SUBCUT (22:21)
[2021-02-09] VITALS (12 sets, daily range): BP systolic 106–155; BP diastolic 72–90; PULSE 76–102; RESP 16–20; TEMP 36.1–36.7; O2SAT 92–99
[2021-02-09] MEDS: PARoxetine HCL 40 MG TABLET PO (09:28)
[2021-02-09] MEDS: Buprenorphine/Naloxone 8/2 mg FILM 1 FILM SUBLINGUAL ×2 (09:28→11:26)
[2021-02-09] MEDS: Tamsulosin HCL 0.4 MG CAPSULE 0.8 MG PO (09:28)
[2021-02-09] MEDS: buPROPion HCl XL 300 MG TAB.ER.24H PO (09:28)
[2021-02-09] MEDS: Spironolactone 25 MG TABLET PO (09:28)
[2021-02-09] MEDS: cloNIDine HCL 0.1 MG TABLET PO ×2 (09:28→20:33)
[2021-02-09] MEDS: Omeprazole 20 MG CAPSULE.DR PO (09:28)
[2021-02-09] MEDS: ARIPiprazole 5 MG TABLET PO (09:28)
[2021-02-09] MEDS: Furosemide 40 MG TABLET PO (09:28)
[2021-02-09] MEDS: 0.9 % Sodium Chloride Flush 3 ML SYRINGE IVFLUSH ×2 (09:28→15:17)
--- NOTE | 2021-02-09 09:54 | MHC.CM.PN ---
Addendum entered by Denise Pierre RN 02/09/21 13:35: CLARIFICATION: [facility] DELIVERED 02/09/2021 Original Note: IMM 02/09/21, EMR REVIEWED, PT ADMITTED W/SOB, CM MET W/PT WHO REPORTS HE STILL LIV[facility] AT [facility] AND WILL NEED TRANSPORT BACK, PT REPORTS HE IS INDEPENDENT W/CARE, USES A CANE AND O2 2-3L 24HRS A DAY, PT DENIES HOME SERVICES, PT VERIFIES PCP, PHARMACY AND HCP. PCP: LEONILA HEATH HOME O2: [facility] HCP: KOMAL CHEUNG (DTR) [phone]
[2021-02-09] MEDS: Albuterol/Iprat 2.5/0.5MG 3 ML AMPUL.NEB INHALE ×2 (11:03→15:53)
[2021-02-09] MEDS: predniSONE 10 MG TABLET PO (11:26)
--- NOTE | 2021-02-09 13:34 | HO.PM.IMPN ---
Subjective Subjective Date of Service: 02/09/21 Interval History: Seen in f/u for sob, he feels, respiratory status is unchnaged Review of Systems Gen: no fever Resp: no sob, no cough CV: no chest, no GOMEZ, no leg edema GI: No n/v, no abd pain Neuro: No confusion Physical Exam Vital Signs: Vital Signs: Last Vital Signs Temp 97.3 F 02/09/21 07:51 Pulse 76 02/09/21 11:49 Resp 17 02/09/21 10:48 BP 155/86 H 02/09/21 09:28 Pulse Ox 96 02/09/21 12:00 Oxygen Flow Rate 2 02/09/21 12:00 Body Mass Index 35.4 General: AO X 3, no acute distress Resp: CTA bilateral CVS: S1,S2,RRR GI: +BS, NT, no distention Skin: No rash Neuro: motor grossly intact Psych: appropriate affect Const: Other: Constitutional Awake and Alert, No apparent distress, he looks Neck Supple, No lymphadenopathy Cardiovascular RRR, No M/R/G, S1 S2, No S3 S4, No pedal edema Respiratory Lungs clear, No respiratory distress, normal efforts Gastrointestinal Non tender, Non-distended Skin No rash Neurological Alert & oriented x3 Psychological Appropriate affect Objective Data Current Medications Generic Name Dose Route Start Last Admin Trade Name Freq PRN Reason Stop Dose Admin Acetaminophen 650 mg 02/08/21 21:58 Acetaminophen Supp 650 Mg Supp.Rect VT Q6H PRN Pain, Mild (Pain Scale 1-3) Albuterol/Ipratropium 3 ml 02/08/21 20:00 02/09/21 11:03 Albuterol/Iprat 2.5/0.5mg 3 Ml Ampul.Neb INHALE 3 ml RQ4H WHILE AWAKE SHARIF Administration Albuterol/Ipratropium 3 ml 02/08/21 16:21 Albuterol/Iprat 2.5/0.5mg 3 Ml Ampul.Neb INHALE Q2H PRN Shortness of Breath Aripiprazole 5 mg 02/09/21 09:00 02/09/21 09:28 Aripiprazole 5 Mg Tablet PO 5 mg DAILY SHARIF Administration Buprenorphine/Naloxone 1 film 02/09/21 09:00 02/09/21 09:28 Buprenorphine/Naloxone 8/2 Mg Film SUBLINGUAL 1 film DAILY SHARIF Administration Bupropion HCl 150 mg 02/10/21 09:00 Bupropion Hcl Xl 150 Mg Tab.Er.24h PO DAILY SHARIF Bupropion HCl 300 mg 02/09/21 09:00 02/09/21 09:28 Bupropion Hcl Xl 300 Mg Tab.Er.24h PO 300 mg DAILY SHARIF Administration Clonidine HCl 0.1 mg 02/09/21 09:00 02/09/21 09:28 Clonidine Hcl 0.1 Mg Tablet PO 0.1 mg BID SHARIF Administration Protocol Enoxaparin Sodium 40 mg 02/08/21 22:00 02/08/21 22:21 Enoxaparin Sodium 40 Mg/0.4 Ml Syringe SUBCUT 40 mg Q24H SHARIF Administration Furosemide 40 mg 02/09/21 09:00 02/09/21 09:28 Furosemide 40 Mg Tablet PO 40 mg DAILY SHARIF Administration Protocol Hydroxyzine HCl 25 mg 02/09/21 03:27 Hydroxyzine Hcl 25 Mg Tablet PO Q8H PRN Anxiety Magnesium Hydroxide 30 ml 02/08/21 21:58 Milk Of Magnesia 30 Ml Oral.Susp PO DAILY PRN Constipation Omeprazole 20 mg 02/09/21 09:00 02/09/21 09:28 Omeprazole 20 Mg Capsule.Dr PO 20 mg DAILY SHARIF Administration Ondansetron HCl 4 mg 02/08/21 21:58 Ondansetron Hcl 4 Mg/2 Ml Vial IVPUSH Q8H PRN Nausea and Vomiting Paroxetine HCl 40 mg 02/09/21 09:00 02/09/21 09:28 Paroxetine Hcl 40 Mg Tablet PO 40 mg DAILY SHARIF Administration Prednisone 10 mg 02/09/21 11:00 02/09/21 11:26 Prednisone 10 Mg Tablet PO 10 mg DAILY SHARIF Administration Sodium Chloride 3 ml 02/09/21 00:00 02/09/21 09:28 0.9 % Sodium Chloride Flush 3 Ml Syringe IVFLUSH 3 ml QSHIFT SHARIF Administration Spironolactone 25 mg 02/09/21 09:00 02/09/21 09:28 Spironolactone 25 Mg Tablet PO 25 mg DAILY SHARIF Administration Protocol Tamsulosin HCl 0.8 mg 02/09/21 09:00 02/09/21 09:28 Tamsulosin Hcl 0.4 Mg Capsule PO 0.8 mg DAILY SHARFI Administration Labs CBC & Chem 7: 02/08/21 10:19 02/08/21 10:19 Microbiology Microbiology Results: Microbiology 02/08/21 10:38 Blood - Venous Blood Culture - Preliminary No growth after 24 hours. 02/08/21 10:19 Blood - Venous Blood Culture - Preliminary No growth after 24 hours. Assessment and Plan (1) Acute exacerbation of chronic obstructive airways disease: Status: Acute (2) Acute interstitial pneumonitis: Status: Acute Assessment and Plan: 55/ with COPD, chronic respiratory failure on home O2. He was recently discharge from the hosptial following sepsis, PNA and COPD and discharged home with home O2 and presents complaining of being short of breath even with noraml O2 on oxygen. CXR shows improving airway disease from recent hospitalization and CT shows ground opacity compatible with viral process. He has no fever, WBC is normal. Dyspnea due to intersitial pneumonitis, At this point there is no evidence of bacterial pneumonia and therefore will continue antibiotics as started in ED. His symptoms appear chronic or residual from recent hospitalization and intersitial pneumonitis. Will continue Oxygen, Bronchodilators and add Prednisone home dose. He may benefit from pulmonary rehab on outpatient. 2. muscle spasm/ back pain: Stable pain,continue lidocaine patch 3.hypertension--continue spironolactone, and clonidine when med rec done 4. CHF--No exacerbation and Normal BNP, recent echo showed EF 65-70% BNP less than 10, continue Lasix 40 mg home dose. 5. Tobacco use disorder continue nicotine patch, strongly advised to abstain from smoking 6. Mood Disorder cont. paxil and welbutrin. 7.Obesity contributing to back pain, hypertension strongly recommended to follow low-calorie diet and exercise as tolerated Lovenox for DVT prophylaxis PT recommend outpatient pulm rehab, smoking cessation discussed
--- NOTE | 2021-02-09 15:31 | MHC.CM.PN ---
CM WILL D/C SATURDAY 02/10 BACK TO [facility] W/REFERRAL FOR OUTPT PULMONARY REHAB, HOSPITALIST AWARE HE WILL NEED TO FAX ORDER TO [facility] [phone] AND THEY WILL CALL PT TO SCHEDULE APPT. PT WILL ALSO NEED [facility] [place] [place] [facility]. PT IS ON HOME O2 AND WILL NEED LOANER O2 FROM RESPIRATORY.
[2021-02-09] MEDS: Enoxaparin Sodium 40 MG/0.4 ML SYRINGE SUBCUT (20:33)
[2021-02-10] MEDS: 0.9 % Sodium Chloride Flush 3 ML SYRINGE IVFLUSH ×2 (01:15→08:17)
[2021-02-10 04:00] VITALS: RESP 20; O2SAT 92
--- NOTE | 2021-02-10 07:09 | PM.DS ---
DS: Providers Provider Date of Service: 02/10/21 Date of admission: 02/08/21 16:20 Primary care physician: Juanis Cook MD DS: Diagnosis Discharge Diagnosis (1) Acute exacerbation of chronic obstructive airways disease: Status: Acute (2) Acute interstitial pneumonitis: Status: Acute DS: Medications Discharge Medications Home Medications: Home Medications Medication Instructions Recorded Confirmed Trelegy Ellipta 1 puff INHALATION DAILY 01/21/21 02/08/21 aripiprazole 1 tab PO DAILY 01/21/21 02/08/21 buprenorphine-naloxone [Suboxone] 2 strip SUBLINGUAL DAILY 01/21/21 02/08/21 bupropion HCl 1 tab PO QAM 01/21/21 02/08/21 bupropion HCl 1 tab PO QAM 01/21/21 02/08/21 clonidine HCl 1 tab PO BID 01/21/21 02/08/21 furosemide 1 tab PO DAILY 01/21/21 02/08/21 hydroxyzine HCl 25 mg PO Q8H PRN 01/21/21 02/08/21 omeprazole 1 cap PO DAILY 01/21/21 02/08/21 paroxetine HCl 1 tab PO QAM 01/21/21 02/08/21 spironolactone 1 tab PO DAILY 01/21/21 02/08/21 tamsulosin 2 cap PO DAILY 01/21/21 02/08/21 Previous Rx's Medication Instructions Recorded prednisone 10 mg PO DAILY #120 tab 01/28/21 DS: Summary Hospital Course Hospital Course: Chief Complaint: Shortness of breath 55-year-old male with past medical history of COPD, hypertension, TBI, CHF recently admitted to the hospital from January 21 to and treated for respiratory failure due to intersitital pneumonitis, Heart failure and COPD exacerbation and sent home with home Oxygent that he is is supposed to be using on PRn basis at 2 liter, he reports that he has been using this continually. He essentially presents to the with progresive sob of breath, cough that is non productive and also c/o some chest discomfort with exertion. CXR shows improving Opacities, VQ scan is negative for PE, CT of chest shows hong ground glass opacity suspcious for viral process, he has no fever, WBC is normla, oxygen saturation is 97 on 3 liters. ED gave him Zosyn, Solumedrol and Vancomycin. Admission is requested because O2 dropped with ambulation. Presently his O2 sat is 98 percent during my evaluation and he looks very comfortable. Unfortunately he continues to smoke Hospital course: Patient was observe in the hospital and treated with his usual home meds in addition to bronchodilator and oral prednisone that he is already. He does not have pneumonia, his presentation is consistent with interstitial pneumonitis diagnosed the last time he was here, he will be sent pulmonary rehab Time spent discussing smoking cessation with patient: more than 10 minutes Time Spent with Patient Time attestation: Total time spent providing and/or coordinating discharge services: Discharge coordination time: Greater than 30 minutes Quality: Stroke Does the patient have a stroke diagnosis?: No Physical Exam Vital Signs: Vital Signs: Last Vital Signs Temp 96.9 F 02/09/21 23:54 Pulse 85 02/09/21 23:54 Resp 20 02/10/21 04:00 BP 135/75 02/09/21 23:54 Pulse Ox 92 02/10/21 04:00 Oxygen Flow Rate 2 02/10/21 04:00 Body Mass Index 35.4 Constitutional Awake and Alert, No apparent distress Neck Supple, No lymphadenopathy Cardiovascular RRR, No M/R/G, S1 S2, No S3 S4, No pedal edema Respiratory Lungs clear, No respiratory distress Gastrointestinal Non tender, Non-distended Skin No rash Neurological Alert & oriented x3 Psychological Appropriate affect DS: Data Data Completed and Pending Labs on day of discharge: Preliminary micro results at discharge 02/08/21 10:38 Blood Culture - Preliminary Blood - Venous No growth after 24 hours. 02/08/21 10:19 Blood Culture - Preliminary Blood - Venous No growth after 24 hours. Discharge Plan Discharge Anticipated Discharge Date/Time: 02/10/21 07:03 Patient Disposition: Home, Self-Care Discharge Diagnosis: Acute and chronic respiratory failure Referrals: [facility] [Other] - 1 Week (THEY WILL CALL YOU TO SCHEDULE OUTPATIENT PULMONARY REHAB ) Willis Parra MD [Physician] - 1 Week (You have a follow up pulmonary visit with Dr Parra on Tuesday02/18/2021 @ 10:15 AM) Physician,Unknown [Physician] - 1 Week Discharge Medications: New prednisone 10 mg tablet See Taper mg PO DAILY Qty: 30 RF: 0 Continued furosemide 40 mg tablet 1 tab PO DAILY RF: 0 bupropion HCl 150 mg tablet sustained-release 12 hr 1 tab PO QAM RF: 0 clonidine HCl 0.1 mg tablet 1 tab PO BID RF: 0 spironolactone 25 mg tablet 1 tab PO DAILY RF: 0 tamsulosin 0.4 mg capsule 2 cap PO DAILY RF: 0 omeprazole 20 mg capsule,delayed release(DR/EC) 1 cap PO DAILY RF: 0 hydroxyzine HCl 25 mg tablet 25 mg PO Q8H PRN (Reason: Anxiety) RF: 0 paroxetine HCl 40 mg tablet 1 tab PO QAM RF: 0 aripiprazole 5 mg tablet 1 tab PO DAILY RF: 0 bupropion HCl 300 mg tablet extended release 24 hr 1 tab PO QAM RF: 0 buprenorphine-naloxone [Suboxone] 8-2 mg film 2 strip sublingual DAILY RF: 0 Trelegy Ellipta 200-62.5-25 mcg blister with device 1 puff inhalation DAILY RF: 0 Discontinued prednisone 10 mg tablet 10 mg PO DAILY Qty: 120 RF: 0 Discharge Orders: Discharge Order (Routine); Ordered 02/10/21 Ordered By: Rogers Cardenas Diet: advance to usual diet and regular diet Activity on Discharge: As tolerated Stand Alone Forms: Patient Portal Discharge page Care Plan Goals: Prevent frequent hospitalization and exacerbation Health Concerns: chronic respiratory failure Plan of Treatment: Use oxygen as directed, go to pulmonary rehab Follow up with Dr. Parra and have pulmonology rehab arrange for you Assessment: See above Discharge Date/Time: 02/10/21 14:30
[2021-02-10 07:20] VITALS: BP 110/85; PULSE 86; RESP 19; TEMP 36.2; O2SAT 97
[2021-02-10] MEDS: Albuterol/Iprat 2.5/0.5MG 3 ML AMPUL.NEB INHALE ×2 (07:30→11:18)
[2021-02-10 07:32] VITALS: PULSE 93; O2SAT 96
[2021-02-10 08:00] VITALS: RESP 19; O2SAT 97
[2021-02-10] MEDS: Tamsulosin HCL 0.4 MG CAPSULE 0.8 MG PO (08:16)
[2021-02-10] MEDS: cloNIDine HCL 0.1 MG TABLET PO (08:16)
[2021-02-10] MEDS: buPROPion HCl XL 150 MG TAB.ER.24H PO (08:17)
[2021-02-10] MEDS: buPROPion HCl XL 300 MG TAB.ER.24H PO (08:17)
[2021-02-10] MEDS: Furosemide 40 MG TABLET PO (08:17)
[2021-02-10] MEDS: Omeprazole 20 MG CAPSULE.DR PO (08:17)
[2021-02-10] MEDS: predniSONE 10 MG TABLET PO (08:17)
[2021-02-10] MEDS: Buprenorphine/Naloxone 8/2 mg FILM 1 FILM SUBLINGUAL (08:17)
[2021-02-10] MEDS: PARoxetine HCL 40 MG TABLET PO (08:17)
[2021-02-10] MEDS: ARIPiprazole 5 MG TABLET PO (08:17)
[2021-02-10] MEDS: Spironolactone 25 MG TABLET PO (08:17)
--- NOTE | 2021-02-10 10:13 | P.EN_ITS ---
Event Note Date of Service: 02/10/21 Event Note: THIS GENTLEMAN WAS SEEN BY ME THIS MORNING FOR PULMONARY CONSULTAT ION. COMPLETE NOTE IS DICTATED. SUGGEST TO INCREASE THE DOSE OF PREDNISONE FOR THE NEXT FEW WEEKS. AGREE WITH THE TAPERING SCHEDULE HAS BEEN ALREADY WRITTEN. PATIENT WOULD NEED A VERY CLOSE FOLLOW-UP OUTPATIENT.
[2021-02-10 11:19] VITALS: PULSE 87; O2SAT 97
[2021-02-10 11:52] VITALS: RESP 19; O2SAT 97
--- NOTE | 2021-02-10 13:06 | MHC.CM.PN ---
PATIENT IS DISCHARGED HOME WITH NO SERVICES. HE HAS OUTPATIENT FOLLOW UP WITH PULMONARY AND CAN GET A REFERRAL FOR OUTPATIENT PULMONARY REHAB AT [facility] [place]. RESPIRATORY THERAPY AWARE OF NEED FOR LOANER TANK. [place] [facility] [place] VOUCHER WILL BE PROVIDED.
--- NOTE | 2021-02-10 21:36 | CONS_ITS ---
DATE OF SERVICE: 02/10/2021 HISTORY OF PRESENT ILLNESS: A 55-year-old gentleman was readmitted on 02/08/2021, with increased shortness of breath. At this time, he denied any fever, chills, or chest pain, and he just was short of breath on minimal effort and presented back to the emergency room, where he was noted to be hypoxemic and required O2 at 3-4 L/minute. Immediate past medical history is well documented in the medical records. He was recently admitted on January 21 with progressive shortness of breath. He was found to have extensive bilateral interstitial pneumonitis without evidence of any overwhelming sepsis or infection. He was started on high dose steroids and did respond, his O2 requirement decreased and he was saturating fairly well on oxygen 2 L/minute, which he was using only p.r.n. He was discharged home on January 28. He lives alone. This morning, when I was talking to him, he seemed to be quite vague about the days of his discharge and then why did he have to come back to the hospital. Actually, he told me that he was home only for a few days and then he had to come back. I asked him about smoking. Initially, he said, no, I did not smoke, but then he admitted, yeah, maybe a few cigarettes yesterday, so I figured out that I think he was back to his full-time smoking. In the emergency room, he had CT scan of the chest, which again shows ground-glass opacities on both sides consistent with acute pneumonitis. The severity of this ground-glass change is less than when he was here in the hospital 2 weeks ago. He even had V/Q scan, which is negative for pulmonary embolism. Since his admission 2 days ago, he has been on oxygen supplements. He is on IV Solu-Medrol. He was also treated empirically with Zosyn and vancomycin. Currently, he feels better. He is still short of breath on minimal exertion, but he is not in any distress. PAST MEDICAL HISTORY: Is well documented and it includes: 1. Chronic brain injury with significant cognitive impairment. 2. Chronic anxiety. 3. Hypertension. 4. Obesity. 5. Obstructive sleep apnea, clinical diagnosis needs to be confirmed with sleep test. This gentleman lives by himself, but due to his cognitive impairment, I think it may be difficult for him to take care of himself at home at this time. PERSONAL HISTORY: As noted above. He continues to smoke about half pack of cigarettes a day. PHYSICAL EXAMINATION: GENERAL: A 55-year-old gentleman, is moderately obese with a round face. HEENT: Oropharynx is somewhat crowded, but there is no acute infection. NECK: Supple. No jugular venous distention. Trachea midline. CHEST: Symmetrical. Percussion note resonant. He does have equal breath sounds on both sides, which are somewhat diminished and no wheezes are heard, only a few fine inspiratory creps heard over the basilar areas. CARDIAC: Sounds are distant. Rhythm regular. No murmurs. ABDOMEN: Moderately obese and protuberant. EXTREMITIES: No pitting edema or varicosities. LAB: His white cell count 9.2, hemoglobin 12.4, hematocrit 38. Chest x-ray, the patient has small lung volumes and bilateral patchy airspace disease is noted. CT scan of the chest, extensive bilateral ground-glass airspace disease somewhat increased from his picture of 01/23/2021. Current O2 saturation is 97% on 3 L/minute. CLINICAL IMPRESSION: 1. Persistent bilateral interstitial pneumonitis with slight exacerbation. 2. Respiratory failure/hypoxemia secondary to persistent bilateral interstitial pneumonitis. 3. Pre-existing chronic obstructive pulmonary disease. 4. Strong possibility of obstructive sleep apnea. 5. 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 6. Active smoker. RECOMMENDATIONS: 1. I think his dose of prednisone should be increased to 20 mg a day at this time. 2. Oxygen supplementation 2-3 L/minute to maintain O2 saturation above 90%. 3. He does not need any antibiotics at this time. 4. DuoNeb updrafts q.4-6 hours while awake. 5. Should be instructed to do deep breathing exercises. 6. The patient needs supervision at home for his continued care. 7. I think if he is living alone, he is not capable of taking care of himself and taking the medications appropriately. 8. He may be better off going to an inpatient pulmonary rehab program. Anyway, if he is discharged, he needs to be followed up closely as outpatient and should be registered in outpatient pulmonary rehab program. He would need a sleep study at some point as outpatient. Thank you very much for asking me to see this patient. Sincerely, MD ISMAEL Barroso/LEIGHTON / [phone]
== END 2021-02-10 14:30 | disposition home or self-care (01) ==
LOC: HO.ED 15:42 → HO.EDOVER 17:13 → HO.S3 21:04
PROVIDERS: Nurse Practitioner Family; Admitting Provider Internal Medicine; Emergency Provider Emergency Medicine Emergency Medical Services; PCP Internal Medicine; Visit Provider Internal Medicine
DX: J44.1 Chronic obstructive pulmonary disease with (acute) exacerbation (principal); J84.114 Acute interstitial pneumonitis; J96.91 Respiratory failure, unspecified with hypoxia; E66.9 Obesity, unspecified; S06.9X0D Unspecified intracranial injury without loss of consciousness, subsequent encounter; X58.XXXD Exposure to other specified factors, subsequent encounter; F41.8 Other specified anxiety disorders; I11.0 Hypertensive heart disease with heart failure; I50.9 Heart failure, unspecified; G47.33 Obstructive sleep apnea (adult) (pediatric); F17.210 Nicotine dependence, cigarettes, uncomplicated; Z20.822 Contact with and (suspected) exposure to COVID-19; Z68.35 Body mass index [BMI] 35.0-35.9, adult; Z79.899 Other long term (current) drug therapy
CPT/HCPCS: 36415; 36569; 71046; 71250; 78580; 80048; 80076; 83605; 83735; 83880; 84484; 85025; 85379; 85610; 87040; 87635; 93005; 96365; 96366; 96368; 96372; 96375; 97162; 99218; 99285; 99291; A9540; J1650; J2543; J2930; J3370

== ENCOUNTER 2021-05-14 08:13 | Inpatient (IN) | payer MEDICARE, MEDICAID, SELFPAY ==
[2021-05-14] VITALS (10 sets, daily range): BP systolic 111–155; BP diastolic 70–88; PULSE 84–93; RESP 16–25; TEMP 36.3–37.2; O2SAT 69–96; BMI 34.4
--- NOTE | ~2021-05-14 | XR_ITS ---
EXAMINATION: XR CHEST CLINICAL INFORMATION: Shortness of breath COMPARISON: Nuclear perfusion scan 02/08/2021, CT had noncontrast 02/08/2021, chest radiographs 02/18/2021 and 01/21/2021. TECHNIQUE: Portable upright AP view of the chest was obtained. FINDINGS: There are low lung volumes. Diffuse patchy bilateral groundglass opacities are present, increased from 02/08/2021. There are some early consolidative opacities suggested left upper and left lower zone. There is no confluent lobar or segmental airspace consolidation or visible effusion. The cardiac and hilar and mediastinal contours and visualized bony structures are unremarkable. XR/XR chest 1V IMPRESSION: Diffuse patchy bilateral groundglass and early consolidative opacities. No effusion. The
--- NOTE | ~2021-05-14 | CT_ITS ---
EXAMINATION: CT ANGIOGRAM OF THE CHEST WITH AND WITHOUT CONTRAST (CT PULMONARY ANGIOGRAM FOR PE) CLINICAL INFORMATION: Reason for Exam hypoxic, elevated dimer COMPARISON: None TECHNIQUE: Prior to contrast administration, noncontrast localization images were obtained. Subsequently, multidetector volumetric imaging was performed from the thoracic inlet to below the diaphragms following the administration of 80 mL Omnipaque 350 intravenous contrast. No contrast reaction reported Sagittal, coronal, and MIP oblique sagittal reformatted images were obtained on the CT workstation, uploaded to PACS, and reviewed. This CT examination was performed using dose optimization techniques as appropriate, variously including the following: *Automated exposure control *Adjustment of mA and/or kV according to patient size (this includes techniques or standardized protocols for targeted exams where dose is matched to indication/reason for exam; i.e. extremities or head) *Use of iterative reconstruction technique Total exam dose-length product mGy-cm FINDINGS: QUALITY OF STUDY/CONTRAST BOLUS: Satisfactory. PULMONARY ARTERIES: No central or segmental pulmonary emboli. THORACIC AORTA: No aneurysm or dissection. LUNG: The lung volumes are low. There is a diffuse mixed groundglass and interstitial disease seen throughout the lungs. This appears increased from previous exam 02/08/2021. PLEURA: There is a small right pleural effusion. There is a tiny left pleural effusion. MEDIASTINUM: The heart is enlarged. There is coronary artery calcification. There is no pericardial effusion. No evidence of septal bowing or right heart strain. There is shotty mediastinal lymphadenopathy. CHEST WALL/AXILLA: No axillary or internal mammary lymphadenopathy. OSSEOUS STRUCTURES: There are multiple thoracic and upper lumbar vertebral body compression fractures that appear unchanged. UPPER ABDOMEN: The liver is cirrhotic. The spleen is slightly enlarged. The gallbladder has been removed. No reflux of contrast into the hepatic veins to suggest elevated right heart pressures. CT/CT angio chest PE protocol IMPRESSION: No evidence of pulmonary embolism. Low lung volumes. Diffuse interstitial and groundglass disease. This is a nonspecific finding but would be compatible with atypical viral pneumonia/ Covid. Enlarged heart and coronary artery calcification. Small right and tiny left pleural effusions. Cirrhotic appearing liver and splenomegaly. Multiple thoracic and lumbar vertebral body compression fractures that appear unchanged. VTE: negative
--- NOTE | 2021-05-14 08:23 | ECG_ITS ---
Test Reason : DIFFICULTING BREATHI Blood Pressure : / mmHG Vent. Rate : 091 BPM Atrial Rate : 091 BPM P-R Int : 166 ms QRS Dur : 084 ms QT Int : 384 ms P-R-T Axes : 015 008 017 degrees QTc Int : 472 ms Normal sinus rhythm Normal ECG When compared with ECG of 08-FEB-2021 09:31, No significant change was found Referred By: Gemma Mandel Electronically Signed By:VONDA SCHMIDT
--- NOTE | 2021-05-14 08:25 | ED.SOB ---
HPI - SOB/Dyspnea General Chief Complaint: Dyspnea Stated Complaint: SOB/diff breathing, exertional dyspnea Time Seen by Provider: 05/14/21 08:23 Source: patient and EMS Mode of arrival: EMS Limitations: no limitations History of Present Illness HPI Narrative: Patient comes emergency room complaining of shortness of breath. Patient states that yesterday he went to [facility], however he left without being seen due to the long waiting line. Patient states that he is known to have COPD, he is supposed to be on 2 L of oxygen, round of oxygen over a week ago. Today, patient's visiting nurse called EMS, patient's oxygen saturation was 65 on room air. EMS put him on 15 L non-rebreather, oxygen improved to 99%. Patient denies chest pain, only complaining of shortness of breath which is chronic for him, no new symptoms. Patient denies fever chills, no increased coughing from baseline. Related Data Home Medications Medication Instructions Recorded Confirmed aripiprazole 5 mg tablet 1 tab PO DAILY 01/21/21 02/08/21 buprenorphine 8 mg-naloxone 2 mg 2 strip SUBLINGUAL DAILY 01/21/21 02/08/21 sublingual film (Suboxone) bupropion HCl 150 mg tablet,12 hr 1 tab PO QAM 01/21/21 02/08/21 sustained-release bupropion HCl 300 mg 24 hr tablet, 1 tab PO QAM 01/21/21 02/08/21 extended release clonidine HCl 0.1 mg tablet 1 tab PO BID 01/21/21 02/08/21 fluticasone fur. 200 mcg-umeclid 1 puff INHALATION DAILY 01/21/21 02/08/21 62.5 mcg-vilant 25 mcg inhalat.powder (Trelegy Ellipta) furosemide 40 mg tablet 1 tab PO DAILY 01/21/21 02/08/21 hydroxyzine HCl 25 mg tablet 25 mg PO Q8H PRN 01/21/21 02/08/21 omeprazole 20 mg capsule,delayed 1 cap PO DAILY 01/21/21 02/08/21 release paroxetine HCl 40 mg tablet 1 tab PO QAM 01/21/21 02/08/21 spironolactone 25 mg tablet 1 tab PO DAILY 01/21/21 02/08/21 tamsulosin 0.4 mg capsule 2 cap PO DAILY 01/21/21 02/08/21 Previous Rx's Medication Instructions Recorded prednisone 10 mg tablet See Taper PO DAILY #30 tab 02/10/21 Allergies Allergy/AdvReac Type Severity Reaction Status Date / Time No Known Allergies Allergy Verified 05/14/21 08:41 [No Known Allergies*] Review of Systems Review of Systems: Constitutional : No Weight loss, No Fever, No Chills, No Night Sweats, No Fatigue, No Malaise ENT/Mouth : No Hearing loss, No Ear Pain, No Nasal Congestion, No Sinus Pain, No Hoarseness, No sore throat, No Rhinorrhea, No Swallowing Difficulty Eyes: No Eye Pain, No Swelling, No Redness, No Foreign Body, No Discharge, No Vision Changes Cardiovascular : No Chest Pain, No SOB, complaining of worsening dyspnea on exertion, complaining of orthopnea Respiratory : No Cough, No Sputum, No Wheezing, No Smoke Exposure, complaining of shortness of breath Gastrointestinal : No Nausea, No Vomiting, No Diarrhea, No Constipation, No abdominal Pain, No Hematochezia, No Melena Genitourinary : no irregular bleeding, No Dysuria, No Urinary Frequency, No Hematuria, No Urinary Incontinence, No Urgency, No Flank Pain, No Urinary Flow Changes, No Hesitancy Musculoskeletal : No joint pain, No Myalgias, No Joint Swelling Skin : No Skin Lesions, No rash Neuro : No Weakness, No Numbness, No Paresthesias, No Loss of Consciousness, No Dizziness, No Headache Psych : No Anxiety/Panic, No Depression, No SI/HI/AH/VH, No Social Issues, Heme/Lymph: No Bruising, No Bleeding,No Lymphadenopathy Endocrine : No Polyuria, No Polydipsia, No Temperature Intolerance PMFSH Past Medical History Medical History Acute interstitial pneumonitis Anxiety ARDS (adult respiratory distress syndrome) ARDS (adult respiratory distress syndrome) CHF (congestive heart failure) Community acquired pneumonia COPD (chronic obstructive pulmonary disease) COPD exacerbation COPD exacerbation Hypertension Obesity (BMI 35.0-39.9 without comorbidity) KATHYA (obstructive sleep apnea) Pneumonia Sepsis TBI (traumatic brain injury) Surgical History No significant past surgical history Social History Social History Household Members: None Housing: Apartment Housing Other:: Sober House Alcohol intake: unknown Patient Tobacco Use Status: Current everyday Tobacco user Cigarette Packs Per Day: 0.5 Cigarettes Per Day: 8 Second Hand Smoke Exposure: Yes Use of substances other than those prescribed or required for medical reasons: No Substance Use Type: Former Substance User Advance Directives: Yes Advance Directives on File: Yes Advance Directives Date on File: 02/08/21 service: No Current occupational status: unemployed and disabled Physical Exam Vital Signs: Vital Signs: Last Vital Signs Temp 98.1 F 05/14/21 13:49 Pulse 84 05/14/21 13:49 Resp 18 05/14/21 13:49 BP 111/71 05/14/21 13:49 Pulse Ox 92 05/14/21 13:49 Body Mass Index 34.4 Course Course Course Narrative: Patient's white blood cell count within normal limits, lactic acid within normal limits, blood pressure is normal. Sepsis is not suspected. Patient's hypoxia is likely secondary to not having oxygen supplement at home. Patient is supposed to be on 2 L, he has been off oxygen for over a week now. Chest x-ray looked suspicious for ground-glass opacities, COVID test is negative, patient is known to have had pneumonia approximately 1 month ago. At this time, patient is on a Venti mask, saturating 95 to 96%. Then, patient was weaned to nasal cannula, oxygen saturation is 92% on [address] scan shows ground-glass opacities, COVID-19 results are negative. Patient was given 1 dose of Levaquin. At this time, sepsis is not suspected. I discussed the patient with Dr. Saavedra, patient is being admitted MDM - SOB/Dyspnea Lab Data Result diagrams: 05/14/21 09:46 05/14/21 09:45 Labs: Lab Results 05/14/21 05/14/21 05/14/21 Range/Units 08:24 09:20 09:45 WBC (4.8-10.8) X10*3/uL RBC (4.60-5.80) X10*6/uL Hgb (14.0-18.0) g/dl Hct (42-52) % MCV (80-98) fL MCH (27.0-33.0) pg MCHC (31.0-36.0) g/dl RDW (11.0-16.0) % Plt Count (160-400) X10*3/uL MPV (9.4-12.4) fL Immature Gran % (Auto) (0.0-0.4) % Neut % (Auto) (45-73) % Lymph % (Auto) (20-40) % [place] % (Auto) (2-11) % Eos % (Auto) (0-4) % Baso % (Auto) (0-2) % Lymph # (Auto) (1.2-4.9) X10*3/uL [place] # (Auto) (0.1-1.2) X10*3/uL Eos # (Auto) (0.0-0.4) X10*3/uL Baso # (Auto) (0.0-0.2) X10*3/uL Abs Immat Gran (auto) (0.00-0.03) X10*3/uL Absolute Neuts (auto) (2.0-8.3) X10*3/uL Absolute Nucleated RBC (0.0-0.012) X10*3/uL Nucleated RBC % (auto) (0.0-0.2) /100WBC PT (9.9-13.0) SEC INR (0.9-1.1) D-Dimer NG/ML Sodium 140 (135-145) mmol/L Potassium 3.9 (3.3-5.1) mmol/L Chloride 103 (96-108) mmol/L Carbon Dioxide 29 (22-29) mmol/L Anion Gap 12 (12-20) BUN 12 (9-16) mg/dL Creatinine 1.11 (0.5-1.4) mg/dL Estim Creat Clear Calc 90.7 Estimated GFR > 60 POC Glucose 140 H (60-115) mg/dL Random Glucose 121 H (60-115) mg/dL Lactic Acid (0.5-2.0) mmol/L Calcium 9.3 (8.4-10.2) mg/dL Total Bilirubin 2.4 H (0.0-1.0) mg/dL Direct Bilirubin 1.0 H (0.0-0.5) mg/dL AST 17 D (5-37) U/L ALT 15 (0-40) U/L Alkaline Phosphatase 175 H (39-117) U/L Troponin I High Sens (<3.5-35.0) ng/L B-Natriuretic Peptide (<100) pg/mL Total Protein 6.5 (6.5-8.0) g/dL Albumin 3.7 (3.5-5.0) g/dL COVID-19 (YADIRA) Negative (Negative) COVID-19 Clin Com See Note 05/14/21 05/14/21 05/14/21 Range/Units 09:45 09:45 09:46 WBC 7.7 (4.8-10.8) X10*3/uL RBC 3.75 L (4.60-5.80) X10*6/uL Hgb 10.9 L (14.0-18.0) g/dl Hct 32.0 L (42-52) % MCV 85.3 (80-98) fL MCH 29.1 (27.0-33.0) pg MCHC 34.1 (31.0-36.0) g/dl RDW 13.8 (11.0-16.0) % Plt Count 96 L (160-400) X10*3/uL MPV 9.4 (9.4-12.4) fL Immature Gran % (Auto) 0.3 (0.0-0.4) % Neut % (Auto) 80.6 H (45-73) % Lymph % (Auto) 10.9 L (20-40) % [place] % (Auto) 4.7 (2-11) % Eos % (Auto) 3.1 (0-4) % Baso % (Auto) 0.4 (0-2) % Lymph # (Auto) 0.8 L (1.2-4.9) X10*3/uL [place] # (Auto) 0.4 (0.1-1.2) X10*3/uL Eos # (Auto) 0.2 (0.0-0.4) X10*3/uL Baso # (Auto) 0.0 (0.0-0.2) X10*3/uL Abs Immat Gran (auto) 0.02 (0.00-0.03) X10*3/uL Absolute Neuts (auto) 6.2 (2.0-8.3) X10*3/uL Absolute Nucleated RBC 0.000 (0.0-0.012) X10*3/uL Nucleated RBC % (auto) 0.0 (0.0-0.2) /100WBC PT (9.9-13.0) SEC INR (0.9-1.1) D-Dimer NG/ML Sodium (135-145) mmol/L Potassium (3.3-5.1) mmol/L Chloride (96-108) mmol/L Carbon Dioxide (22-29) mmol/L Anion Gap (12-20) BUN (9-16) mg/dL Creatinine (0.5-1.4) mg/dL Estim Creat Clear Calc Estimated GFR POC Glucose (60-115) mg/dL Random Glucose (60-115) mg/dL Lactic Acid 1.0 (0.5-2.0) mmol/L Calcium (8.4-10.2) mg/dL Total Bilirubin (0.0-1.0) mg/dL Direct Bilirubin (0.0-0.5) mg/dL AST (5-37) U/L ALT (0-40) U/L Alkaline Phosphatase (39-117) U/L Troponin I High Sens 4.9 (<3.5-35.0) ng/L B-Natriuretic Peptide 27 (<100) pg/mL Total Protein (6.5-8.0) g/dL Albumin (3.5-5.0) g/dL COVID-19 (YADIRA) (Negative) COVID-19 Clin Com 05/14/21 Range/Units 09:46 WBC (4.8-10.8) X10*3/uL RBC (4.60-5.80) X10*6/uL Hgb (14.0-18.0) g/dl Hct (42-52) % MCV (80-98) fL MCH (27.0-33.0) pg MCHC (31.0-36.0) g/dl RDW (11.0-16.0) % Plt Count (160-400) X10*3/uL MPV (9.4-12.4) fL Immature Gran % (Auto) (0.0-0.4) % Neut % (Auto) (45-73) % Lymph % (Auto) (20-40) % [place] % (Auto) (2-11) % Eos % (Auto) (0-4) % Baso % (Auto) (0-2) % Lymph # (Auto) (1.2-4.9) X10*3/uL [place] # (Auto) (0.1-1.2) X10*3/uL Eos # (Auto) (0.0-0.4) X10*3/uL Baso # (Auto) (0.0-0.2) X10*3/uL Abs Immat Gran (auto) (0.00-0.03) X10*3/uL Absolute Neuts (auto) (2.0-8.3) X10*3/uL Absolute Nucleated RBC (0.0-0.012) X10*3/uL Nucleated RBC % (auto) (0.0-0.2) /100WBC PT 13.9 H (9.9-13.0) SEC INR 1.2 H (0.9-1.1) D-Dimer 536 NG/ML Sodium (135-145) mmol/L Potassium (3.3-5.1) mmol/L Chloride (96-108) mmol/L Carbon Dioxide (22-29) mmol/L Anion Gap (12-20) BUN (9-16) mg/dL Creatinine (0.5-1.4) mg/dL Estim Creat Clear Calc Estimated GFR POC Glucose (60-115) mg/dL Random Glucose (60-115) mg/dL Lactic Acid (0.5-2.0) mmol/L Calcium (8.4-10.2) mg/dL Total Bilirubin (0.0-1.0) mg/dL Direct Bilirubin (0.0-0.5) mg/dL AST (5-37) U/L ALT (0-40) U/L Alkaline Phosphatase (39-117) U/L Troponin I High Sens (<3.5-35.0) ng/L B-Natriuretic Peptide (<100) pg/mL Total Protein (6.5-8.0) g/dL Albumin (3.5-5.0) g/dL COVID-19 (YADIRA) (Negative) COVID-19 Clin Com Imaging Data Chest x-ray: Radiologist's impression: FINDINGS: There are low lung volumes. Diffuse patchy bilateral groundglass opacities are present, increased from 02/08/2021. There are some early consolidative opacities suggested left upper and left lower zone. There is no confluent lobar or segmental airspace consolidation or visible effusion. The cardiac and hilar and mediastinal contours and visualized bony structures are unremarkable. XR/XR chest 1V IMPRESSION: Diffuse patchy bilateral groundglass and early consolidative opacities. No effusion.? Discharge Plan Discharge Clinical Impression: Acute respiratory failure with hypoxia, Pneumonia Patient Disposition: Admitted As Inpatient Prescriptions: No Action prednisone 10 mg tablet See Taper mg PO DAILY Qty: 30 RF: 0 furosemide 40 mg tablet 1 tab PO DAILY RF: 0 bupropion HCl 150 mg tablet sustained-release 12 hr 1 tab PO QAM RF: 0 clonidine HCl 0.1 mg tablet 1 tab PO BID RF: 0 spironolactone 25 mg tablet 1 tab PO DAILY RF: 0 tamsulosin 0.4 mg capsule 2 cap PO DAILY RF: 0 omeprazole 20 mg capsule,delayed release(DR/EC) 1 cap PO DAILY RF: 0 hydroxyzine HCl 25 mg tablet 25 mg PO Q8H PRN (Reason: Anxiety) RF: 0 paroxetine HCl 40 mg tablet 1 tab PO QAM RF: 0 aripiprazole 5 mg tablet 1 tab PO DAILY RF: 0 bupropion HCl 300 mg tablet extended release 24 hr 1 tab PO QAM RF: 0 buprenorphine-naloxone [Suboxone] 8-2 mg film 2 strip sublingual DAILY RF: 0 Trelegy Ellipta 200-62.5-25 mcg blister with device 1 puff inhalation DAILY RF: 0
[2021-05-14 08:29] LABS: Glucose, Whole Blood 140 mg/dL (60-115)
--- NOTE | 2021-05-14 09:34 | PC.NURSE ---
pt has been a very difficult stick.
[2021-05-14 09:39] LABS: COVID-19 Test Negative (Negative)
[2021-05-14 09:52] LABS: MANUAL DIFF FLAG NO
[2021-05-14 09:53] LABS: Basophils Percent Auto 0.4 % (0-2); Eosinophils Absolute Auto 0.2 X10*3/uL (0.0-0.4); Eosinophils Percent Auto 3.1 % (0-4); Hemoglobin 10.9 g/dl (14.0-18.0); Imm Gran Abs Auto 0.02 X10*3/uL (0.00-0.03); Imm Gran Pct Auto 0.3 % (0.0-0.4); Lymphocytes Absolute Auto 0.8 X10*3/uL (1.2-4.9); Lymphocytes Percent Auto 10.9 % (20-40); Mean Corpuscular HGB Conc 34.1 g/dl (31.0-36.0); Mean Corpuscular Hemoglobin 29.1 pg (27.0-33.0); Mean Corpuscular Volume 85.3 fL (80-98); Monocytes Absolute Auto 0.4 X10*3/uL (0.1-1.2); Monocytes Percent Auto 4.7 % (2-11); Neutrophils Absolute Auto 6.2 X10*3/uL (2.0-8.3); Neutrophils Percent Auto 80.6 % (45-73); Red Blood Count 3.75 X10*6/uL (4.60-5.80); Red Cell Distribution Width 13.8 % (11.0-16.0); White Blood Count 7.7 X10*3/uL (4.8-10.8)
[2021-05-14 10:01] LABS: INTERNATIONAL NORM RATIO 1.2 (0.9-1.1); Prothrombin Time 13.9 SEC (9.9-13.0)
[2021-05-14 10:04] LABS: D Dimer 536 NG/ML
[2021-05-14 10:13] LABS: Mean Platelet Volume 9.4 fL (9.4-12.4); Platelet Count 96 X10*3/uL (160-400)
[2021-05-14 10:22] LABS: B Type Natriuretic Peptide 27 pg/mL (<100); Troponin-I High Sensitivity 4.9 ng/L (<3.5-35.0)
[2021-05-14 10:25] LABS: Alanine Aminotransferase 15 U/L (0-40); Albumin Level 3.7 g/dL (3.5-5.0); Alkaline Phosphatase 175 U/L (39-117); Anion Gap 12 (12-20); Aspartate Amino Transferase 17 U/L (5-37); Bilirubin Total 2.4 mg/dL (0.0-1.0); Blood Urea Nitrogen 12 mg/dL (9-16); Calcium 9.3 mg/dL (8.4-10.2); Carbon Dioxide 29 mmol/L (22-29); Chloride 103 mmol/L (96-108); Creatinine Clr Calc Pharmacy 90.7; Estimated Glomerular Filt Rate > 60; Glucose Random 121 mg/dL (60-115); Potassium 3.9 mmol/L (3.3-5.1); Sodium 140 mmol/L (135-145); Total Protein 6.5 g/dL (6.5-8.0)
--- NOTE | 2021-05-14 10:48 | PC.NURSE ---
unlabored resp. nsr onmonitor. continues with venti at 40%. no complaints except fatigue
[2021-05-14] MEDS: iohexoL 350 MG/ML 100 ML INFUS..BTL IV (13:42)
[2021-05-14] MEDS: levoFLOXacin/D5W 500 MG/100 ML PIGGYBACK 100 MG IV (14:29)
--- NOTE | 2021-05-14 14:46 | PC.NURSE ---
this rn calling [facility], hubert, clinical quality assurance manager. [phone] will send med list.
--- NOTE | 2021-05-14 14:51 | PC.NURSE ---
seen by [facility] today who called ems and prior to that on 05/08/21 before then. RN note states that patient had called O2 company and had them take back concentrator tanks because he did not use them and will not use them .
--- NOTE | 2021-05-14 15:13 | PM.IMHP ---
History of Present Illness Date of Service: 05/14/21 Chief Complaint: Shortness of breath, feeling tired and exhausted This is a 55-year-old male with a past medical history of known COPD and prior chronic respiratory failure on home oxygen who presents to the hospital with complaints of progressive shortness of breath and extreme fatigue over the last 3-4 days. By his own admission, due to his traumatic brain injury, the patient is a poor historian. He reports that last month he was treated at [facility] for some ?lung issue.? He reports that after his hospitalization he was transferred to short-term rehabilitation where he spends several weeks and was subsequently discharged home. He reports that it since then he has been doing fairly well up until his symptoms started about 3-4 days ago. He reports progressive shortness of breath, reporting that he is unable to walk from his living room to bathroom without getting short of breath and having to stop. He reports a nonproductive cough which is somewhat chronic. He denies any fevers or chills. Most of all he reports extreme exhaustion. He denies any known sick contacts, particularly the COVID. He reports that he received his 2 shot COVID vaccination, although he is unsure if it was [employer] or [employer]. In regards to his chronic home oxygen, he reports that he has been without this for quite some time because he sent the oxygen back as he did not think he needed. When asked if this was recommended by a physician or a provider, he reports that he is unsure. Upon arrival to the emergency room the patient was noted to be hypoxic down to 69% on room air. He was quickly treated with Ventimask and subsequently nasal cannula. His workup in the emergency room showed a CT scan which shows diffuse ground-glass opacities which appear to be to be worse than his prior CT scan from . He will be given a dose of IV Solu-Medrol, has been given a dose of IV Levaquin and will be admitted for further treatment. Review of Systems Review of Systems: General - denies fevers or chills, +severe fatigue HEENT -denies blurred vision, denies headache, denies sore throat Cardiovascular - denies chest pain or palpitations, denies edema Respiratory - shortness of breath, initially with exertion and now at even rest; +non-productive cough Gastrointestinal - denies abdominal pain, nausea, vomiting, diarrhea - denies flank pain, denies dysuria, denies frequency or urgency Musculoskeletal - denies back pain, denies hip pain, denies knee pain, denies shoulder pain Neurological - denies any focal weakness or numbness, +memory troubles Skin, denies any bruising or redness Psychiatric - denies any suicidal ideation, hallucinations, homicidal ideation Endocrinology - denies intolerance to hot / cold temperatures [facility] Medical History (Updated 05/14/21 @ 15:38 by Gautam Coleman MD) Acute interstitial pneumonitis Anxiety ARDS (adult respiratory distress syndrome) ARDS (adult respiratory distress syndrome) CHF (congestive heart failure) Community acquired pneumonia COPD (chronic obstructive pulmonary disease) COPD exacerbation COPD exacerbation Hypertension Hypoxia Obesity (BMI 35.0-39.9 without comorbidity) KATHYA (obstructive sleep apnea) Pneumonia Pneumonia Sepsis TBI (traumatic brain injury) Family History (Updated 05/14/21 @ 15:19 by Gautam Coleman MD) Other Lymphoma Surgical History (Updated 05/14/21 @ 15:20 by Gautam Coleman MD) H/O brain surgery No significant past surgical history Social History (Updated 05/14/21 @ 15:21 by Gautam Coleman MD) Household Members: None Housing: Apartment Housing Other:: Sober House Alcohol intake: former Year quit: 2 Patient Tobacco Use Status: Current everyday Tobacco user Cigarette Packs Per Day: 0.5 Cigarettes Per Day: 8 Second Hand Smoke Exposure: Yes Use of substances other than those prescribed or required for medical reasons: No Substance Use Type: Former Substance User Advance Directives: Yes Advance Directives on File: Yes Advance Directives Date on File: 02/08/21 service: No Current occupational status: unemployed and disabled Meds Allergies Allergy/AdvReac Type Severity Reaction Status Date / Time No Known Allergies Allergy Verified 05/14/21 08:41 [No Known Allergies*] Active Medications: Current Medications Generic Name Dose Route Start Last Admin Trade Name Freq PRN Reason Stop Dose Admin Acetaminophen 650 mg 05/14/21 15:05 Acetaminophen 325 Mg Tablet PO Q6H PRN Pain, Mild (Pain Scale 1-3) Enoxaparin Sodium 40 mg 05/14/21 15:00 Enoxaparin Sodium 40 Mg/0.4 Ml Syringe SUBCUT Q24H SHARIF Ceftriaxone Sodium 1 gm/ 50 mls @ 100 mls/hr 05/15/21 08:00 Sodium Chloride IV Q24H [facility] Doxycycline Hyclate 100 mg/ 250 mls @ 166.67 mls/hr 05/14/21 20:00 Sodium Chloride IV Q12H SHARIF Methylprednisolone Sodium Succinate 80 mg 05/14/21 23:00 Methylprednisolone Sod Succ 125 Mg/2 Ml Vial IVPUSH Q8H SHARIF Methylprednisolone Sodium Succinate 125 mg 05/14/21 15:09 Methylprednisolone Sod Succ 125 Mg/2 Ml Vial IVPUSH 05/14/21 15:10 ONCE ONE Ondansetron HCl 4 mg 05/14/21 15:05 Ondansetron Hcl 4 Mg/2 Ml Vial IVPUSH Q8H PRN Nausea and Vomiting Pharmacy Consult 1 each 05/14/21 14:42 Consult Rx Perform Med Rec MISCELLANE ONCE PRN Consult order Sodium Chloride 3 ml 05/14/21 16:00 0.9 % Sodium Chloride Flush 3 Ml Syringe IVFLUSH QSHIFT [facility] Home Medications Medication Instructions Recorded Confirmed Last Taken Type aripiprazole 5 mg tablet 1 tab PO DAILY 01/21/21 02/08/21 1 Day Ago History ~02/07/21 buprenorphine 8 mg-naloxone 2 mg 2 strip SUBLINGUAL DAILY 01/21/21 02/08/21 1 Day Ago History sublingual film (Suboxone) ~02/07/21 16 MG bupropion HCl 150 mg tablet,12 hr 1 tab PO QAM 01/21/21 02/08/21 1 Day Ago History sustained-release ~02/07/21 bupropion HCl 300 mg 24 hr tablet, 1 tab PO QAM 01/21/21 02/08/21 1 Day Ago History extended release ~02/07/21 clonidine HCl 0.1 mg tablet 1 tab PO BID 01/21/21 02/08/21 1 Day Ago History ~02/07/21 fluticasone fur. 200 mcg-umeclid 1 puff INHALATION DAILY 01/21/21 02/08/21 1 Day Ago History 62.5 mcg-vilant 25 mcg ~02/07/21 inhalat.powder (Trelegy Ellipta) furosemide 40 mg tablet 1 tab PO DAILY 01/21/21 02/08/21 1 Day Ago History ~02/07/21 hydroxyzine HCl 25 mg tablet 25 mg PO Q8H PRN 01/21/21 02/08/21 1 Day Ago History ~02/07/21 omeprazole 20 mg capsule,delayed 1 cap PO DAILY 01/21/21 02/08/21 1 Day Ago History release ~02/07/21 paroxetine HCl 40 mg tablet 1 tab PO QAM 01/21/21 02/08/21 1 Day Ago History ~02/07/21 spironolactone 25 mg tablet 1 tab PO DAILY 01/21/21 02/08/21 1 Day Ago History ~02/07/21 tamsulosin 0.4 mg capsule 2 cap PO DAILY 01/21/21 02/08/21 1 Day Ago History ~02/07/21 Physical Exam Vital Signs and Narrative: Vital Signs: Last Vital Signs Temp 98.1 F 05/14/21 13:49 Pulse 84 05/14/21 13:49 Resp 18 05/14/21 13:49 BP 111/71 05/14/21 13:49 Pulse Ox 92 05/14/21 13:49 Body Mass Index 34.4 Const: Other: Constitutional - Awake and Alert, No apparent distress HEENT - PERRLA, EOMI; old scar on scalp Cardiovascular - S1S2, RRR, No edema Respiratory - fine rales L > R, pursed lip breathing, tachypnea around 22 Gastrointestinal - NT / ND; +BS; No rebound or guarding - No CVA tenderness Extremities - no calf tenderness bilaterally, no swelling Musculoskeletal - Normal inspection, normal ROM Skin - Warm/Dry Neurological - Alert & oriented to place and time; non-focal exam Psychological - Appropriate affect Results Labs CBC and Chem 7: 05/14/21 09:46 05/14/21 09:45 Labs: Laboratory Results - last 24 hr 05/14/21 05/14/21 05/14/21 08:24 09:20 09:45 MCV MCH MCHC RDW Plt Count MPV Immature Gran % (Auto) Neut % (Auto) Lymph % (Auto) [place] % (Auto) Eos % (Auto) Baso % (Auto) Lymph # (Auto) [place] # (Auto) Eos # (Auto) Baso # (Auto) Abs Immat Gran (auto) Absolute Neuts (auto) Absolute Nucleated RBC Nucleated RBC % (auto) PT INR D-Dimer Anion Gap 12 Estim Creat Clear Calc 90.7 Estimated GFR > 60 POC Glucose 140 H Random Glucose 121 H Lactic Acid Calcium 9.3 Total Bilirubin 2.4 H Direct Bilirubin 1.0 H AST 17 D ALT 15 Alkaline Phosphatase 175 H Troponin I High Sens B-Natriuretic Peptide Total Protein 6.5 Albumin 3.7 COVID-19 (YADIRA) Negative COVID-19 Clin Com See Note 05/14/21 05/14/21 05/14/21 09:45 09:45 09:46 MCV 85.3 MCH 29.1 MCHC 34.1 RDW 13.8 Plt Count 96 L MPV 9.4 Immature Gran % (Auto) 0.3 Neut % (Auto) 80.6 H Lymph % (Auto) 10.[address] [place] % (Auto) 4.7 Eos % (Auto) 3.1 Baso % (Auto) 0.4 Lymph # (Auto) 0.[address] [place] # (Auto) 0.4 Eos # (Auto) 0.2 Baso # (Auto) 0.0 Abs Immat Gran (auto) 0.02 Absolute Neuts (auto) 6.2 Absolute Nucleated RBC 0.000 Nucleated RBC % (auto) 0.0 PT INR D-Dimer Anion Gap Estim Creat Clear Calc Estimated GFR POC Glucose Random Glucose Lactic Acid 1.0 Calcium Total Bilirubin Direct Bilirubin AST ALT Alkaline Phosphatase Troponin I High Sens 4.9 B-Natriuretic Peptide 27 Total Protein Albumin COVID-19 (YADIRA) COVID-19 Clin Com 05/14/21 09:46 MCV MCH MCHC RDW Plt Count MPV Immature Gran % (Auto) Neut % (Auto) Lymph % (Auto) [place] % (Auto) Eos % (Auto) Baso % (Auto) Lymph # (Auto) [place] # (Auto) Eos # (Auto) Baso # (Auto) Abs Immat Gran (auto) Absolute Neuts (auto) Absolute Nucleated RBC Nucleated RBC % (auto) PT 13.9 H INR 1.2 H D-Dimer 536 Anion Gap Estim Creat Clear Calc Estimated GFR POC Glucose Random Glucose Lactic Acid Calcium Total Bilirubin Direct Bilirubin AST ALT Alkaline Phosphatase Troponin I High Sens B-Natriuretic Peptide Total Protein Albumin COVID-19 (YADIRA) COVID-19 Clin Com Imaging Radiologist's Impressions: Impressions Chest X-Ray 05/14/21 08:24 IMPRESSION: Diffuse patchy bilateral groundglass and early consolidative opacities. No effusion. The Chest CTA 05/14/21 10:59 IMPRESSION: No evidence of pulmonary embolism. Low lung volumes. Diffuse interstitial and groundglass disease. This is a nonspecific finding but would be compatible with atypical viral pneumonia/ Covid. Enlarged heart and coronary artery calcification. Small right and tiny left pleural effusions. Cirrhotic appearing liver and splenomegaly. Multiple thoracic and lumbar vertebral body compression fractures that appear unchanged. VTE: negative Assessment and Plan (1) Acute respiratory failure: Status: Acute This is a 55 yo M with a PMH of COPD, HFrEF (last echo in 01/2021), TBI with resultant memory issues, prior EtOH and substance abuse, prior interstitial pneumonitis requiring high dose IV steroids who presents to the hospital with a 3 to 4 day history of progressive SOB + fatigue. His CT scan shows diffuse ground glass opacities and he is significantly hypoxia. He will be admitted for further work up. Acute on Chronic resp failure with hypoxia cause not entirely clearly - see below see details below Diffuse ground glass opacities on CT infectious vs inflammatory COVID negative; pt reports he is vaccinated will check respiratory pathogen panel will start high dose IV steroids, empiric coverage for bacterial infection with Rocephin + Doxy. (No evidence of sepsis at this time) Pulmonary consult COPD, does not appear to be in exacerbation no wheezing appreciated continue updrafts and inhalers as he does at [facility] HFrEF, not in exacerbation clinically does not appear to be fluid overloaded, bnp is also in the normal range; unclear if he is on oral diuretics at home, but will continue them if he is Hyperbilirubinemia, some what chronic but slightly elevated compared to baseline could be due to acute process, no GI signs or symptoms to suggest biliary issues at this time will repeat tomorrow, if not improved -- will need further evaluation has cirrhosis per imaging -- pt denies drinking >2 years not due to severe sepsis Thrombocytopenia chronic and due to alcoholic liver dx; NOT due to severe sepsis Full Code DVT pptx, tonia Endorses his sister as HCP Quality Stroke Does the patient have a stroke diagnosis?: No VTE Prior VTE?: No VTE Risk Level:: Medical - moderate - high VTE Device Contraindication: Treatment Not Indicated VTE Drug Contraindication: N/A - Med Ordered
[2021-05-14 15:16] LABS: Ethanol < 10 mg/dL
[2021-05-14] MEDS: methylPREDNISolone Sod Succ 125 MG/2 ML VIAL IVPUSH (19:01)
[2021-05-14] MEDS: Enoxaparin Sodium 40 MG/0.4 ML SYRINGE SUBCUT (19:02)
--- NOTE | 2021-05-14 19:32 | PC.NURSE ---
RN WILL CALL BACK FOR REPORT.
[2021-05-14] MEDS: Doxycycline Hyclate 100 MG in 0.9 % Sodium Chloride 250 ML 166.67 MG IV (21:00)
[2021-05-14] MEDS: Acetaminophen 325 MG TABLET 650 MG PO (21:08)
[2021-05-14] MEDS: methylPREDNISolone Sod Succ 125 MG/2 ML VIAL 80 MG IVPUSH (22:56)
[2021-05-15] VITALS (10 sets, daily range): BP systolic 133–157; BP diastolic 80–93; PULSE 78–90; RESP 16–18; TEMP 36.1–36.9; O2SAT 79–95
[2021-05-15] MEDS: 0.9 % Sodium Chloride Flush 3 ML SYRINGE IVFLUSH ×4 (00:27→21:41)
[2021-05-15] MEDS: methylPREDNISolone Sod Succ 125 MG/2 ML VIAL 80 MG IVPUSH ×3 (06:16→21:39)
[2021-05-15 07:02] LABS: MANUAL DIFF FLAG NO
[2021-05-15 07:08] LABS: Basophils Percent Auto 0.3 % (0-2); Eosinophils Percent Auto 0.3 % (0-4); Hematocrit 34.1 % (42-52); Hemoglobin 11.6 g/dl (14.0-18.0); Imm Gran Abs Auto 0.03 X10*3/uL (0.00-0.03); Imm Gran Pct Auto 0.8 % (0.0-0.4); Lymphocytes Absolute Auto 0.4 X10*3/uL (1.2-4.9); Lymphocytes Percent Auto 10.5 % (20-40); Mean Corpuscular Hemoglobin 28.9 pg (27.0-33.0); Mean Platelet Volume 9.6 fL (9.4-12.4); Monocytes Absolute Auto 0.1 X10*3/uL (0.1-1.2); Monocytes Percent Auto 1.5 % (2-11); Neutrophils Absolute Auto 3.5 X10*3/uL (2.0-8.3); Neutrophils Percent Auto 86.6 % (45-73); Red Blood Count 4.01 X10*6/uL (4.60-5.80); Red Cell Distribution Width 13.3 % (11.0-16.0)
[2021-05-15 07:11] LABS: Platelet Count 94 X10*3/uL (160-400)
[2021-05-15 07:29] LABS: Anion Gap 13 (12-20); Blood Urea Nitrogen 16 mg/dL (9-16); Calcium 9.3 mg/dL (8.4-10.2); Carbon Dioxide 26 mmol/L (22-29); Chloride 105 mmol/L (96-108); Creatinine Clr Calc Pharmacy 108.2; Estimated Glomerular Filt Rate > 60; Glucose Random 177 mg/dL (60-115); Potassium 4.5 mmol/L (3.3-5.1); Sodium 139 mmol/L (135-145)
[2021-05-15 08:01] LABS: Alanine Aminotransferase 15 U/L (0-40); Albumin Level 3.6 g/dL (3.5-5.0); Alkaline Phosphatase 175 U/L (39-117); Aspartate Amino Transferase 14 U/L (5-37); Bilirubin Direct 0.6 mg/dL (0.0-0.5); Bilirubin Total 1.4 mg/dL (0.0-1.0); Total Protein 6.5 g/dL (6.5-8.0)
--- NOTE | 2021-05-15 08:18 | P.CDIC_ITS ---
CDI Concurrent Query Documentation Clarification: PHYSICIAN'S DOCUMENTATION REQUEST Date of Query: 05/15/21818 Patient Name: Yovani Valenzuela Admit Date: 05/14/21 Dear Doctor, A review of the medical record indicates additional documentation may be needed. Please review below and update the documentation accordingly. Pneumonia Treating, POA Pneumonia, Rule out Other or undertermined Risk Factors/Clinical Indicators/Treatments Prior interstitial pneumonitis, empiric coverage for bacterial infection with Rochephin & Doxy. Ground glass opacities. History of pneumonia one month ago, Levaquin. ED Clinical impression - Pneumonia Based on the above, could you clarify in the Progress Notes further specificity regarding the most likely type of pneumonia you suspect you are treating (even if specific organism may not be known)? * Pneumonia, bacterial * Pneumonia, other * Unable to determine Use of terms such as suspected, likely, concern for, or probable (associated with a specific diagnosis that is being evaluated, monitored, or treated as if it exists) are acceptable and can be coded in the inpatient setting, when documented at the time of discharge. Thank you, Kay Gibbons [facility], CDIS Extension: [phone] Please use your independent medical judgment in providing your response. THIS QUERY IS PART OF THE PERMANENT MEDICAL RECORD Provider Response: Other Other Diagnosis: Possible pneumonia, work up in progress -- will clarify once known.
[2021-05-15 08:40] LABS: Adenovirus PCR Not Detected (Not Detect.); Bordetella parapertussis PCR Not Detected (Not Detect.); Bordetella pertussis PCR Not Detected (Not Detect.); Chlamydia pneumoniae PCR Not Detected (Not Detect.); Coronavirus 229E PCR Not Detected (Not Detect.); Coronavirus HKU1 PCR Not Detected (Not Detect.); Coronavirus NL63 PCR Not Detected (Not Detect.); Coronavirus OC43 PCR Not Detected (Not Detect.); Human metapneumovirus PCR Not Detected (Not Detect.); Influenza A PCR Not Detected (Not Detect.); Influenza B PCR Not Detected (Not Detect.); Mycoplasma pneumoniae PCR Not Detected (Not Detect.); Parainfluenza 1 PCR Not Detected (Not Detect.); Parainfluenza 2 PCR Not Detected (Not Detect.); Parainfluenza 3 PCR Not Detected (Not Detect.); Parainfluenza 4 PCR Not Detected (Not Detect.); RSV PCR Not Detected (Not Detect.); Rhino/Enterovirus PCR Not Detected (Not Detect.); SARS-CoV-2 PCR Not Detected (Not Detect.)
[2021-05-15] MEDS: ARIPiprazole 5 MG TABLET PO (09:04)
[2021-05-15] MEDS: Spironolactone 25 MG TABLET PO (09:04)
[2021-05-15] MEDS: Tamsulosin HCL 0.4 MG CAPSULE 0.8 MG PO (09:04)
[2021-05-15] MEDS: Furosemide 40 MG TABLET PO (09:05)
[2021-05-15] MEDS: Omeprazole 20 MG CAPSULE.DR PO (09:05)
[2021-05-15] MEDS: PARoxetine HCL 40 MG TABLET PO (09:05)
[2021-05-15] MEDS: cloNIDine HCL 0.1 MG TABLET PO ×2 (09:05→21:39)
[2021-05-15] MEDS: Finasteride 5 MG TABLET PO (09:05)
[2021-05-15] MEDS: cefTRIAXone sodium 1 GM in 0.9 % Sodium Chloride 50 ML IV (09:07)
[2021-05-15] MEDS: Doxycycline Hyclate 100 MG in 0.9 % Sodium Chloride 250 ML 166.67 MG IV ×2 (09:07→21:40)
[2021-05-15] MEDS: Buprenorphine/Naloxone 8/2 mg FILM 2 FILM SUBLINGUAL (09:07)
[2021-05-15] MEDS: buPROPion HCl XL 300 MG TAB.ER.24H PO (09:08)
--- NOTE | 2021-05-15 13:31 | MHC.CM.PN ---
Addendum entered by Jen Medina 05/15/21 13:44: PT COMPLETED HCP NAMING HIS DAUGHTER, KOMAL CHEUNG ([phone]) HIS AGENT. Original Note: CM MET WITH PT WHO REPORTS HE LIVES IN A SOBER HOME IN [place] AND IS INDEPENDENT WITH ALL CARE. HE REPORTS HE DOES HAVE HOME OXYGEN BUT NO OTHER DME AND NO SERVICES. PT REPORTS BEING AGREEABLE TO [facility] IF INDICATED. PT DID NOT HAVE A HCP BUT WOULD LIKE TO COMPLETE ONE TODAY NAMING HIS DAUGHTER, KOMAL HIS AGENT. PT CONFIRMS HIS PCP IS LEONILA AZAR. CURRENT DC PLAN IS HOME WITH NO SERVICES VS HOME WITH [facility] PT WILL NEED TRANSPORT ARRANGED.
--- NOTE | 2021-05-15 15:01 | HO.PM.IMPN ---
Subjective Subjective Date of Service: 05/15/21 Interval History: Seen and examined this morning Follow-up for acute respiratory failure Patient reports dyspnea with exertion. Nurse reports desaturation with exertion. Denies any fever or chills Review of Systems Review of Systems: Yes all other systems are reviewed and are negative Constitutional Constitutional: Denies chills and Denies fever(s) Cardiovascular Cardiovascular: Denies chest pain and Reports dyspnea on exertion Respiratory Respiratory: Denies pain on inspiration and Reports dyspnea on exertion Gastrointestinal Gastrointestinal: Denies abdominal pain Physical Exam Vital Signs: Vital Signs: Last Vital Signs Temp 98.4 F 05/15/21 11:21 Pulse 87 05/15/21 11:21 Resp 18 05/15/21 11:21 BP 133/88 05/15/21 11:21 Pulse Ox 94 05/15/21 11:21 Body Mass Index 34.4 Const: General: comfortable, alert and awake Nutritional Appearance: overweight Orientation/consciousness: patient oriented x3 HENMT: Head: Yes normocephalic and Yes atraumatic Eyes: Sclerae: sclerae normal Pupils: Equal, round and reactive pupils present Chest: Chest palpation & inspection: normal inspection of the chest Resp: Other: crackles mostly b/l bases Effort & Inspection: normal respiratory effort and no respiratory distress Cardio: Rate: regular rate Rhythm: regular rhythm GI: Palpation (GI): Soft to palpation and nontender Neuro: General: patient oriented x3 Cranial nerves: Yes CN's II-XII intact bilaterally, Yes Equal, round and reactive pupils present and Yes Bilaterally intact EOM present Objective Data Active Medications Acetaminophen (Acetaminophen 325 Mg Tablet) 650 mg PO Q6H PRN PRN Reason: Pain, Mild (Pain Scale 1-3) Last Admin: 05/14/21 21:08 Dose: 650 mg Documented by: SASHA Aripiprazole (Aripiprazole 5 Mg Tablet) 5 mg PO DAILY [facility] Last Admin: 05/15/21 09:04 Dose: 5 mg Documented by: JORDY Atorvastatin Calcium (Atorvastatin Calcium 40 Mg Tablet) 40 mg PO BEDTIME [facility] Buprenorphine/Naloxone (Buprenorphine/Naloxone 8/2 Mg Film) 2 film SUBLINGUAL DAILY [facility] Last Admin: 05/15/21 09:07 Dose: 2 film Documented by: JORDY Bupropion HCl (Bupropion Hcl Xl 150 Mg Tab.Er.24h) 150 mg PO DAILY [facility] Bupropion HCl (Bupropion Hcl Xl 300 Mg Tab.Er.24h) 300 mg PO DAILY [facility] Last Admin: 05/15/21 09:08 Dose: 300 mg Documented by: JORDY Clonidine HCl (Clonidine Hcl 0.1 Mg Tablet) 0.1 mg PO BID [facility]; Protocol Last Admin: 05/15/21 09:05 Dose: 0.1 mg Documented by: JORDY Enoxaparin Sodium (Enoxaparin Sodium 40 Mg/0.4 Ml Syringe) 40 mg SUBCUT Q24H [facility] Last Admin: 05/14/21 19:02 Dose: 40 mg Documented by: CELIA Finasteride (Finasteride 5 Mg Tablet) 5 mg PO DAILY [facility] Last Admin: 05/15/21 09:05 Dose: 5 mg Documented by: JORDY Furosemide (Furosemide 40 Mg Tablet) 40 mg PO DAILY [facility]; Protocol Last Admin: 05/15/21 09:05 Dose: 40 mg Documented by: JORDY Hydroxyzine HCl (Hydroxyzine Hcl 25 Mg Tablet) 25 mg PO Q8H PRN PRN Reason: Anxiety Ceftriaxone Sodium 1 gm/ (Sodium Chloride) 50 mls @ 100 mls/hr IV Q24H [facility] Last Infusion: 05/15/21 10:30 Dose: 0 mls/hr Documented by: JORDY Doxycycline Hyclate 100 mg/ (Sodium Chloride) 250 mls @ 166.67 mls/hr IV Q12H [facility] Last Infusion: 05/15/21 12:14 Dose: 0 mls/hr Documented by: JORDY Methylprednisolone Sodium Succinate (Methylprednisolone Sod Succ 125 Mg/2 Ml Vial) 80 mg IVPUSH Q8H [facility] Last Admin: 05/15/21 06:16 Dose: 80 mg Documented by: TRISTANLN Omeprazole (Omeprazole 20 Mg Capsule.Dr) 20 mg PO DAILY [facility] Last Admin: 05/15/21 09:05 Dose: 20 mg Documented by: JORDY Ondansetron HCl (Ondansetron Hcl 4 Mg/2 Ml Vial) 4 mg IVPUSH Q8H PRN PRN Reason: Nausea and Vomiting Paroxetine HCl (Paroxetine Hcl 40 Mg Tablet) 40 mg PO DAILY [facility] Last Admin: 05/15/21 09:05 Dose: 40 mg Documented by: HO.CHICOIC Pharmacy Consult (Consult Rx Perform Med Rec) 1 each MISCELLANE ONCE PRN PRN Reason: Consult order Sodium Chloride (0.9 % Sodium Chloride Flush 3 Ml Syringe) 3 ml IVFLUSH QSHIFT [facility] Last Admin: 05/15/21 09:07 Dose: 3 ml Documented by: JORDY Spironolactone (Spironolactone 25 Mg Tablet) 25 mg PO DAILY [facility]; Protocol Last Admin: 05/15/21 09:04 Dose: 25 mg Documented by: JORDY Tamsulosin HCl (Tamsulosin Hcl 0.4 Mg Capsule) 0.8 mg PO DAILY [facility] Last Admin: 05/15/21 09:04 Dose: 0.8 mg Documented by: JORDY Labs CBC & Chem 7: 05/15/21 06:50 05/15/21 06:50 Labs: Laboratory Results - last 24 hr 05/14/21 05/14/21 05/15/21 09:45 09:45 06:50 MCV 85.0 MCH 28.9 MCHC 34.0 RDW 13.3 Plt Count 94 L MPV 9.6 Immature Gran % (Auto) 0.8 H Neut % (Auto) 86.6 H Lymph % (Auto) 10.5 L [place] % (Auto) 1.5 L Eos % (Auto) 0.3 Baso % (Auto) 0.3 Lymph # (Auto) 0.4 L [place] # (Auto) 0.1 Eos # (Auto) 0.0 Baso # (Auto) 0.0 Abs Immat Gran (auto) 0.03 Absolute Neuts (auto) 3.5 Absolute Nucleated RBC 0.000 Nucleated RBC % (auto) 0.0 Anion Gap Estim Creat Clear Calc Estimated GFR Random Glucose Calcium Total Bilirubin Direct Bilirubin AST ALT Alkaline Phosphatase Total Protein Albumin Procalcitonin 0.10 Ethyl Alcohol < 10 Respiratory Panel [facility] Adenovirus (Rapid PCR) B.pert (TEM-PCR) B.parapertussis DNA PCR C. pneumoniae DNA (PCR) Coronavirus OC43 (PCR) Coronavirus HKU1 (PCR) Coronavirus 229E (PCR) Coronavirus NL63 (PCR) Human Metapneumovir PCR Influenza A (RT-PCR) Influenza B (RT-PCR) M. pneumoniae (PCR) Parainfluenza 1 (PCR) Parainfluenza 2 (PCR) Parainfluenza 3 (PCR) Parainfluenza 4 (PCR) RSV (PCR) Entero/Rhino (PCR) SARS-CoV-2 RNA (RT-PCR) 05/15/21 05/15/21 06:50 08:29 MCV MCH MCHC RDW Plt Count MPV Immature Gran % (Auto) Neut % (Auto) Lymph % (Auto) [place] % (Auto) Eos % (Auto) Baso % (Auto) Lymph # (Auto) [place] # (Auto) Eos # (Auto) Baso # (Auto) Abs Immat Gran (auto) Absolute Neuts (auto) Absolute Nucleated RBC Nucleated RBC % (auto) Anion Gap 13 Estim Creat Clear Calc 108.2 Estimated GFR > 60 Random Glucose 177 H D Calcium 9.3 Total Bilirubin 1.4 H Direct Bilirubin 0.6 H AST 14 ALT 15 Alkaline Phosphatase 175 H Total Protein 6.5 Albumin 3.6 Procalcitonin Ethyl Alcohol Respiratory Panel [facility] See Note Adenovirus (Rapid PCR) Not Detected B.pert (TEM-PCR) Not Detected B.parapertussis DNA PCR Not Detected C. pneumoniae DNA (PCR) Not Detected Coronavirus OC43 (PCR) Not Detected Coronavirus HKU1 (PCR) Not Detected Coronavirus 229E (PCR) Not Detected Coronavirus NL63 (PCR) Not Detected Human Metapneumovir PCR Not Detected Influenza A (RT-PCR) Not Detected Influenza B (RT-PCR) Not Detected M. pneumoniae (PCR) Not Detected Parainfluenza 1 (PCR) Not Detected Parainfluenza 2 (PCR) Not Detected Parainfluenza 3 (PCR) Not Detected Parainfluenza 4 (PCR) Not Detected RSV (PCR) Not Detected Entero/Rhino (PCR) Not Detected SARS-CoV-2 RNA (RT-PCR) Not Detected Microbiology Microbiology Results: Microbiology 05/14/21 09:44 Blood Culture - Preliminary Blood - Venous No growth after 24 hours. 05/14/21 09:20 Blood Culture - Preliminary Blood - Venous No growth after 24 hours. Assessment and Plan (1) Acute respiratory failure with hypoxia: Status: Acute Assessment and Plan: This is a 55 yo M with a PMH of COPD, HFrEF (last echo in 01/2021), TBI with resultant memory issues, prior EtOH and substance abuse, prior interstitial pneumonitis requiring high dose IV steroids who presents to the hospital with a 3 to 4 day history of progressive SOB + fatigue. His CT scan shows diffuse ground glass opacities and he is significantly hypoxia. He will be admitted for further work up. Acute on Chronic resp failure with hypoxia still with dyspnea on exertion, desaturating with ambulation pt did not use home oxygen for at least 1 week prior to admission cause not entirely clearly - see below Diffuse ground glass opacities on CT. infectious vs inflammatory COVID negative; pt reports he is vaccinated RPP negative, procalcitonin 0.10 continue IV steroids, empiric coverage for bacterial infection with Rocephin + Doxy, started 05/14 (No evidence of sepsis at this time) Pulmonary consult pending COPD, does not appear to be in exacerbation no wheezing appreciated continue baseline updrafts and inhalers HFrEF, not in exacerbation clinically does not appear to be fluid overloaded, bnp is also in the normal range; continue lasix, aldactone Hyperbilirubinemia no GI signs or symptoms to suggest biliary issues at this time bili trending down has cirrhosis per imaging -- pt denies drinking >2 years not due to severe sepsis Pancytopenia chronic and due to underlying alcoholic liver dx; NOT due to severe sepsis follow CBC Mood continue paxil, wellbutrin, abilify h/o substance abuse continue suboxone Full Code DVT pptx, lovenox Endorses his sister as HCP Attending Dr. Coleman Quality Stroke Does the patient have a stroke diagnosis?: No VTE Prior VTE?: No VTE Risk Level:: Medical - moderate - high VTE Device Contraindication: Treatment Not Indicated VTE Drug Contraindication: N/A - Med Ordered
[2021-05-15] MEDS: Enoxaparin Sodium 40 MG/0.4 ML SYRINGE SUBCUT (15:41)
--- NOTE | 2021-05-15 16:21 | PM.HPPUL ---
History of Present Illness History of Present Illness Date of Service: 05/15/21 Chief complaint: shortness of breath Narrative: Yovani Valenzuela is a 55 year old male with a known history of polysubstance abuse, traumatic brain injury who has been in an out hospitals for the last several months. Initially was admitted back in January 2021 with acute respiratory failure found to have pneumonitis in the COPD exacerbation. The patient also was treated for heart failure. Subsequently discharged and sub point he was admitted to [facility]. Now he is back with worsening respiratory symptoms. He had a repeat CT scan of the chest demonstrating interval worsening of the airspace disease and ground-glass opacities. The patient has been on oxygen. He has a very poor historian. He also has poor dentition. Denies any choking when he eats. Denies any significant mucus production. He denies any foul smell to his sputum. Denies any recreational drugs. Review of Systems Constitutional: Constitutional: Denies night sweats ENT: Denies change in voice, Denies lip swelling, Denies mouth pain, Reports nasal congestion, Reports nasal discharge and Denies tongue swelling Cardiovascular: Cardiovascular: Denies chest pain and Reports dyspnea Respiratory: Respiratory: Reports cough and Reports dyspnea Gastrointestinal: Gastrointestinal: Denies abdominal pain Musculoskeletal: Musculoskeletal: Denies no additional musculoskeletal complaints Neurologic: Denies Neuro-related abnormal movements Psychiatric: Psychiatric: Denies no additional psychiatric complaints Hematologic/Lymphatic: Hematologic/Lymphatic: Denies easy bleeding and Denies lymphadenopathy Allergic/Immunologic: Allergic/Immunologic: Denies lip swelling and Denies tongue swelling PMFSH Past Medical History Medical History (Updated 05/15/21 @ 16:26 by Uli Jama MD) Acute interstitial pneumonitis Anxiety ARDS (adult respiratory distress syndrome) ARDS (adult respiratory distress syndrome) CHF (congestive heart failure) Community acquired pneumonia COPD (chronic obstructive pulmonary disease) COPD exacerbation COPD exacerbation Hypertension Hypoxia ILD (interstitial lung disease) Obesity (BMI 35.0-39.9 without comorbidity) KATHYA (obstructive sleep apnea) Pneumonia Pneumonia Pneumonitis Sepsis TBI (traumatic brain injury) Family History Family History (Updated 05/14/21 @ 15:19 by Gautam Coleman MD) Other Lymphoma Surgical History Surgical History (Updated 05/14/21 @ 15:20 by Gautam Coleman MD) H/O brain surgery No significant past surgical history Social History Social History (Updated 05/14/21 @ 15:21 by Gautam Coleman MD) Household Members: None Housing: Apartment Housing Other:: Sober House Do you presently have visiting nurse or other home services: No Alcohol intake: former Year quit: 2 Patient Tobacco Use Status: Current everyday Tobacco user Tobacco use type: Cigarette Cigarette Packs Per Day: 0.5 Cigarettes Per Day: 7 Smoked in Last 30 Days: Yes Patient Interested in Nicotine Replacement: Yes Patient Given Instructions on How to Stop Smoking: No Second Hand Smoke Exposure: Yes Use of substances other than those prescribed or required for medical reasons: No Substance Use Type: Former Substance User Currently Displaying Signs/Symptoms of Drug Intoxication Withdrawal: No Have you been hit, kicked, punched, or otherwise hurt by someone within the past year? If so, by whom?: No Do you feel safe in your current relationship?: No Current Relationship Is there a partner from a previous relationship who is making you feel unsafe now?: No Are you made to feel afraid or neglected: No Advance Directives: Yes Advance Directives on File: Yes Advance Directives Date on File: 02/08/21 Do you have thoughts of harming others: None Do you have a plan to hurt others: No Plan Recently lost weight without trying: No Eating poorly because of decreased appetite: No Nutrition Risks: No Nutritional Risk Poor oral hygiene: No service: No Current occupational status: unemployed and disabled Meds Allergies Allergy/AdvReac Type Severity Reaction Status Date / Time No Known Allergies Allergy Verified 05/14/21 08:41 [No Known Allergies*] Active Medications: Current Medications Generic Name Dose Route Start Last Admin Trade Name Wong PRN Reason Stop Dose Admin Acetaminophen 650 mg 05/14/21 15:05 05/14/21 21:08 Acetaminophen 325 Mg Tablet PO 650 mg Q6H PRN Administration Pain, Mild (Pain Scale 1-3) Aripiprazole 5 mg 05/15/21 09:00 05/15/21 09:04 Aripiprazole 5 Mg Tablet PO 5 mg DAILY [facility] Administration Atorvastatin Calcium 40 mg 05/15/21 21:00 Atorvastatin Calcium 40 Mg Tablet PO BEDTIME [facility] Buprenorphine/Naloxone 2 film 05/15/21 09:00 05/15/21 09:07 Buprenorphine/Naloxone 8/2 Mg Film SUBLINGUAL 2 film DAILY [facility] Administration Bupropion HCl 150 mg 05/16/21 09:00 Bupropion Hcl Xl 150 Mg Tab.Er.24h PO DAILY [facility] Bupropion HCl 300 mg 05/15/21 09:00 05/15/21 09:08 Bupropion Hcl Xl 300 Mg Tab.Er.24h PO 300 mg DAILY [facility] Administration Clonidine HCl 0.1 mg 05/15/21 09:00 05/15/21 09:05 Clonidine Hcl 0.1 Mg Tablet PO 0.1 mg BID [facility] Administration Protocol Enoxaparin Sodium 40 mg 05/14/21 15:00 05/15/21 15:41 Enoxaparin Sodium 40 Mg/0.4 Ml Syringe SUBCUT 40 mg Q24H [facility] Administration Finasteride 5 mg 05/15/21 09:00 05/15/21 09:05 Finasteride 5 Mg Tablet PO 5 mg DAILY [facility] Administration Furosemide 40 mg 05/15/21 09:00 05/15/21 09:05 Furosemide 40 Mg Tablet PO 40 mg DAILY [facility] Administration Protocol Hydroxyzine HCl 25 mg 05/15/21 07:40 Hydroxyzine Hcl 25 Mg Tablet PO Q8H PRN Anxiety Ceftriaxone Sodium 1 gm/ 50 mls @ 100 mls/hr 05/15/21 08:00 05/15/21 10:30 Sodium Chloride IV Infused Q24H [facility] Infusion Doxycycline Hyclate 100 mg/ 250 mls @ 166.67 mls/hr 05/14/21 20:00 05/15/21 12:14 Sodium Chloride IV Infused Q12H [facility] Infusion Methylprednisolone Sodium Succinate 80 mg 05/14/21 23:00 05/15/21 15:40 Methylprednisolone Sod Succ 125 Mg/2 Ml Vial IVPUSH 80 mg Q8H [facility] Administration Omeprazole 20 mg 05/15/21 09:00 05/15/21 09:05 Omeprazole 20 Mg Capsule.Dr PO 20 mg DAILY [facility] Administration Ondansetron HCl 4 mg 05/14/21 15:05 Ondansetron Hcl 4 Mg/2 Ml Vial IVPUSH Q8H PRN Nausea and Vomiting Paroxetine HCl 40 mg 05/15/21 09:00 05/15/21 09:05 Paroxetine Hcl 40 Mg Tablet PO 40 mg DAILY [facility] Administration Pharmacy Consult 1 each 05/14/21 14:42 Consult Rx Perform Med Rec MISCELLANE ONCE PRN Consult order Sodium Chloride 3 ml 05/14/21 16:00 05/15/21 15:41 0.9 % Sodium Chloride Flush 3 Ml Syringe IVFLUSH 3 ml QSHIFT [facility] Administration Spironolactone 25 mg 05/15/21 09:00 05/15/21 09:04 Spironolactone 25 Mg Tablet PO 25 mg DAILY [facility] Administration Protocol Tamsulosin HCl 0.8 mg 05/15/21 09:00 05/15/21 09:04 Tamsulosin Hcl 0.4 Mg Capsule PO 0.8 mg DAILY [facility] Administration Home Medications Medication Instructions Recorded Confirmed Last Taken Type aripiprazole 5 mg tablet 1 tab PO DAILY 01/21/21 05/14/21 05/13/21 History buprenorphine 8 mg-naloxone 2 mg 2 strip SUBLINGUAL DAILY 01/21/21 05/14/21 05/13/21 History sublingual film (Suboxone) bupropion HCl 150 mg tablet,12 hr 1 tab PO QAM 01/21/21 05/14/21 05/13/21 History sustained-release bupropion HCl 300 mg 24 hr tablet, 1 tab PO QAM 01/21/21 05/14/21 05/13/21 History extended release clonidine HCl 0.1 mg tablet 1 tab PO BID 01/21/21 05/14/21 05/13/21 History fluticasone fur. 200 mcg-umeclid 1 puff INHALATION DAILY 01/21/21 05/14/21 05/13/21 History 62.5 mcg-vilant 25 mcg inhalat.powder (Trelegy Ellipta) furosemide 40 mg tablet 1 tab PO DAILY 01/21/21 05/14/21 05/13/21 History hydroxyzine HCl 25 mg tablet 25 mg PO Q8H PRN 01/21/21 05/14/21 05/13/21 History omeprazole 20 mg capsule,delayed 1 cap PO DAILY 01/21/21 05/14/21 05/13/21 History release paroxetine HCl 40 mg tablet 1 tab PO QAM 01/21/21 05/14/21 05/13/21 History spironolactone 25 mg tablet 1 tab PO DAILY 01/21/21 05/14/21 05/13/21 History tamsulosin 0.4 mg capsule 2 cap PO DAILY 01/21/21 05/14/21 05/13/21 History atorvastatin 40 mg tablet 1 tab PO BEDTIME 05/14/21 05/14/21 05/13/21 History finasteride 5 mg tablet 1 tab PO DAILY 05/14/21 05/14/21 05/13/21 History insulin glargine 100 unit/mL (3 40 unit SUBCUT BEDTIME 05/14/21 05/14/21 05/13/21 History mL) subcutaneous pen (Basaglar KwikPen U-100 Insulin) Physical Exam Vital Signs: Vital Signs: Last Vital Signs Temp 97.0 F 05/15/21 15:36 Pulse 90 05/15/21 15:36 Resp 18 05/15/21 15:36 BP 156/80 H 05/15/21 15:36 Pulse Ox 95 05/15/21 15:36 Body Mass Index 34.4 Const: General: alert Neck: Neck: Yes normal visual inspection, Yes full ROM and Yes no lymphadenopathy Chest: Chest palpation & inspection: normal inspection of the chest Resp: Auscultation: rales, rhonchi and diminished lung sounds Cardio: Rate: regular rate Rhythm: regular rhythm Heart sounds: S1 normal heart sound present and S2 normal heart sound present GI: Palpation (GI): Soft to palpation and nontender Auscultation: normal bowel sounds Skin: General skin exam: rashes and/or lesions noted Results Laboratory Findings CBC and BMP: 05/15/21 06:50 05/15/21 06:50 ABG, PT/INR, D-dimer: PT/INR, D-dimer PT 13.9 SEC (9.9-13.0) H 05/14/21 09:46 INR 1.2 (0.9-1.1) H 05/14/21 09:46 D-Dimer 536 NG/ML 05/14/21 09:46 Abnormal lab findings: Abnormal Labs 05/14/21 05/14/21 05/14/21 08:24 09:45 09:46 WBC RBC 3.75 L Hgb 10.9 L Hct 32.0 L Plt Count 96 L Immature Gran % (Auto) Neut % (Auto) 80.6 H Lymph % (Auto) 10.9 L [place] % (Auto) Lymph # (Auto) 0.8 L PT INR POC Glucose 140 H Random Glucose 121 H Total Bilirubin 2.4 H Direct Bilirubin 1.0 H Alkaline Phosphatase 175 H 05/14/21 05/15/21 05/15/21 09:46 06:50 06:50 WBC 4.0 L RBC 4.01 L Hgb 11.6 L Hct 34.1 L Plt Count 94 L Immature Gran % (Auto) 0.8 H Neut % (Auto) 86.6 H Lymph % (Auto) 10.5 L [place] % (Auto) 1.5 L Lymph # (Auto) 0.4 L PT 13.9 H INR 1.2 H POC Glucose Random Glucose 177 H D Total Bilirubin 1.4 H Direct Bilirubin 0.6 H Alkaline Phosphatase 175 H Microbiology: Microbiology 05/14/21 09:44 Blood - Venous Blood Culture - Preliminary No growth after 24 hours. 05/14/21 09:20 Blood - Venous Blood Culture - Preliminary No growth after 24 hours. Assessment and Plan (1) Acute respiratory failure: Status: Acute (2) Pneumonia: Status: Acute (3) Acute exacerbation of chronic obstructive airways disease: Status: Acute (4) Pneumonitis: Status: Acute (5) ILD (interstitial lung disease): Status: Acute At this point the etiology of the interstitial lung disease is not clear. Will assess for connective tissue disease related interstitial lung conditions. Aspiration pneumonitis is indeed in the differential. A hypersensitivity pneumonitis is also in the differential. The patient will benefit from a lung biopsy to further address this issue. In the meantime he is already on Solu-Medrol and will request additional blood work at this time. Recommendations: Requesting blood work Continue antibiotic coverage Continue Solu-Medrol Continue oxygen supplementation Start chlorhexidine mouthwash Nasal cannula to maintain a pulse ox above 90% May need to undergo diagnostic interventions to further narrow down the etiology of this interstitial lung disease Quality Stroke Does the patient have a stroke diagnosis?: No VTE Prior VTE?: No VTE Risk Level:: Medical - moderate - high VTE Device Contraindication: Treatment Not Indicated VTE Drug Contraindication: N/A - Med Ordered Procedures Date of Service Date of Service: 05/15/21
[2021-05-15] MEDS: hydrOXYzine HCL 25 MG TABLET PO (17:08)
[2021-05-15 17:49] LABS: Erythrocyte Sedimentation Rate 88 MM/HR (0-15)
[2021-05-15 18:17] LABS: Appearance Urine CLEAR; Color Urine YELLOW; Glucose Urine UA NEG (NEG); Leukocyte Esterase Urine NEG (NEG); Nitrite Urine NEG (NEG); Specific Gravity - Urine 1.015 (1.005-1.025); Urine Blood NEG (NEG); Urine Ketones NEG (NEG); Urine Protein NEG (NEG-TRACE)
[2021-05-15] MEDS: Atorvastatin Calcium 40 MG TABLET PO (21:39)
[2021-05-16] VITALS (7 sets, daily range): BP systolic 121–155; BP diastolic 67–88; PULSE 71–84; RESP 18–20; TEMP 36.4–37; O2SAT 95–97
[2021-05-16 07:43] LABS: Hematocrit 31.7 % (42-52); Hemoglobin 10.8 g/dl (14.0-18.0); Mean Corpuscular HGB Conc 34.1 g/dl (31.0-36.0); Mean Corpuscular Hemoglobin 28.9 pg (27.0-33.0); Mean Corpuscular Volume 84.8 fL (80-98); Mean Platelet Volume 9.9 fL (9.4-12.4); Platelet Count 106 X10*3/uL (160-400); Red Blood Count 3.74 X10*6/uL (4.60-5.80); Red Cell Distribution Width 13.3 % (11.0-16.0); White Blood Count 6.9 X10*3/uL (4.8-10.8)
[2021-05-16 08:05] LABS: Anion Gap 12 (12-20); Blood Urea Nitrogen 23 mg/dL (9-16); Calcium 9.2 mg/dL (8.4-10.2); Carbon Dioxide 25 mmol/L (22-29); Chloride 107 mmol/L (96-108); Creatinine Clr Calc Pharmacy 115.7; Estimated Glomerular Filt Rate > 60; Glucose Random 187 mg/dL (60-115); Potassium 4.4 mmol/L (3.3-5.1); Sodium 140 mmol/L (135-145)
[2021-05-16] MEDS: Doxycycline Hyclate 100 MG in 0.9 % Sodium Chloride 250 ML 166.67 MG IV ×2 (09:19→20:36)
[2021-05-16] MEDS: Chlorhexidine Gluc Oral Rinse 15 ML MOUTHWASH BUCCAL ×2 (09:19→20:36)
[2021-05-16] MEDS: cefTRIAXone sodium 1 GM in 0.9 % Sodium Chloride 50 ML IV (09:19)
[2021-05-16] MEDS: Finasteride 5 MG TABLET PO (09:20)
[2021-05-16] MEDS: ARIPiprazole 5 MG TABLET PO (09:20)
[2021-05-16] MEDS: methylPREDNISolone Sod Succ 125 MG/2 ML VIAL 80 MG IVPUSH ×3 (09:20→22:20)
[2021-05-16] MEDS: Tamsulosin HCL 0.4 MG CAPSULE 0.8 MG PO (09:20)
[2021-05-16] MEDS: buPROPion HCl XL 150 MG TAB.ER.24H PO (09:20)
[2021-05-16] MEDS: Furosemide 40 MG TABLET PO (09:20)
[2021-05-16] MEDS: Spironolactone 25 MG TABLET PO (09:20)
[2021-05-16] MEDS: 0.9 % Sodium Chloride Flush 3 ML SYRINGE IVFLUSH ×2 (09:20→15:46)
[2021-05-16] MEDS: cloNIDine HCL 0.1 MG TABLET PO ×2 (09:20→20:36)
[2021-05-16] MEDS: buPROPion HCl XL 300 MG TAB.ER.24H PO (09:20)
[2021-05-16] MEDS: Omeprazole 20 MG CAPSULE.DR PO (09:21)
[2021-05-16] MEDS: PARoxetine HCL 40 MG TABLET PO (09:21)
[2021-05-16] MEDS: Buprenorphine/Naloxone 8/2 mg FILM 2 FILM SUBLINGUAL (09:21)
--- NOTE | 2021-05-16 14:18 | P.PNIM_ITS ---
Subjective Subjective Date of Service: 05/16/21 Interval History: seen and examined this morning Follow up for respiratory failure/pneumonitis seen by respiratory 05/15, work up in progress patient with short term memory loss r/t TBI No significant coughing, no sob at rest Review of Systems Review of Systems: Yes all other systems are reviewed and are negative Constitutional Constitutional: Denies chills and Denies fever(s) Cardiovascular Cardiovascular: Denies chest pain Gastrointestinal Gastrointestinal: Denies abdominal pain Physical Exam Vital Signs: Vital Signs: Last Vital Signs Temp 97.5 F 05/16/21 12:00 Pulse 83 05/16/21 12:00 Resp 20 05/16/21 12:00 BP 121/67 05/16/21 12:00 Pulse Ox 95 05/16/21 12:00 Body Mass Index 34.4 Const: General: comfortable, alert and awake Nutritional Appearance: overweight Orientation/consciousness: patient oriented x3 HENMT: Head: Yes normocephalic and Yes atraumatic Eyes: Sclerae: sclerae normal Pupils: Equal, round and reactive pupils pre sent Chest: Chest palpation & inspection: normal inspection of the chest Resp: Other: diminished breath sounds Effort & Inspection: normal respiratory effort and no respiratory distress Cardio: Rate: regular rate Rhythm: regular rhythm GI: Palpation (GI): Soft to palpation and nontender Neuro: General: patient oriented x3 Cranial nerves: Yes CN's II-XII intact bilaterally, Yes Equal, round and reactive pupils present and Yes Bilaterally intact EOM present Objective Data Active Medications Acetaminophen (Acetaminophen 325 Mg Tablet) 650 mg PO Q6H PRN PRN Reason: Pain, Mild (Pain Scale 1-3) Last Admin: 05/14/21 21:08 Dose: 650 mg Documented by: SASHA Aripiprazole (Aripiprazole 5 Mg Tablet) 5 mg PO DAILY REPLACED BY [facility] Last Admin: 05/16/21 09:20 Dose: 5 mg Documented by: JORDY Atorvastatin Calcium (Atorvastatin Calcium 40 Mg Tablet) 40 mg PO BEDTIME [facility] Last Admin: 05/15/21 21:39 Dose: 40 mg Documented by: RANDELL Buprenorphine/Naloxone (Buprenorphine/Naloxone 8/2 Mg Film) 2 film SUBLINGUAL DAILY [facility] Last Admin: 05/16/21 09:21 Dose: 2 film Documented by: JORDY Bupropion HCl (Bupropion Hcl Xl 150 Mg Tab.Er.24h) 150 mg PO DAILY [facility] Last Admin: 05/16/21 09:20 Dose: 150 mg Documented by: JORDY Bupropion HCl (Bupropion Hcl Xl 300 Mg Tab.Er.24h) 300 mg PO DAILY REPLACED BY [facility] Last Admin: 05/16/21 09:20 Dose: 300 mg Documented by: JORDY Chlorhexidine Gluconate (Chlorhexidine Gluc Oral Rinse 15 Ml Mouthwash) 15 ml BUCCAL BID [facility] Last Admin: 05/16/21 09:19 Dose: 15 ml Documented by: JORDY Clonidine HCl (Clonidine Hcl 0.1 Mg Tablet) 0.1 mg PO BID REPLACED BY [facility]; Protocol Last Admin: 05/16/21 09:20 Dose: 0.1 mg Documented by: JORDY Enoxaparin Sodium (Enoxaparin Sodium 40 Mg/0.4 Ml Syringe) 40 mg SUBCUT Q24H REPLACED BY [facility] Last Admin: 05/15/21 15:41 Dose: 40 mg Documented by: JORDY Finasteride (Finasteride 5 Mg Tablet) 5 mg PO DAILY REPLACED BY [facility] Last Admin: 05/16/21 09:20 Dose: 5 mg Documented by: JORDY Furosemide (Furosemide 40 Mg Tablet) 40 mg PO DAILY REPLACED BY [facility]; Protocol Last Admin: 05/16/21 09:20 Dose: 40 mg Documented by: JORDY Hydroxyzine HCl (Hydroxyzine Hcl 25 Mg Tablet) 25 mg PO Q8H PRN PRN Reason: Anxiety Last Admin: 05/15/21 17:08 Dose: 25 mg Documented by: JORDY Ceftriaxone Sodium 1 gm/ (Sodium Chloride) 50 mls @ 100 mls/hr IV Q24H [facility] Last Infusion: 05/16/21 11:38 Dose: 0 mls/hr Documented by: JORDY Doxycycline Hyclate 100 mg/ (Sodium Chloride) 250 mls @ 166.67 mls/hr IV Q12H [facility] Last Infusion: 05/16/21 11:38 Dose: 0 mls/hr Documented by: JORDY Methylprednisolone Sodium Succinate (Methylprednisolone Sod Succ 125 Mg/2 Ml Vial) 80 mg IVPUSH Q8H [facility] Last Admin: 05/16/21 09:20 Dose: 80 mg Documented by: JORDY Omeprazole (Omeprazole 20 Mg Capsule.Dr) 20 mg PO DAILY REPLACED BY [facility] Last Admin: 05/16/21 09:21 Dose: 20 mg Documented by: JORDY Ondansetron HCl (Ondansetron Hcl 4 Mg/2 Ml Vial) 4 mg IVPUSH Q8H PRN PRN Reason: Nausea and Vomiting Paroxetine HCl (Paroxetine Hcl 40 Mg Tablet) 40 mg PO DAILY REPLACED BY [facility] Last Admin: 05/16/21 09:21 Dose: 40 mg Documented by: JORDY Pharmacy Consult (Consult Rx Perform Med Rec) 1 each MISCELLANE ONCE PRN PRN Reason: Consult order Sodium Chloride (0.9 % Sodium Chloride Flush 3 Ml Syringe) 3 ml IVFLUSH QSHIFT REPLACED BY [facility] Last Admin: 05/16/21 09:20 Dose: 3 ml Documented by: JORDY Spironolactone (Spironolactone 25 Mg Tablet) 25 mg PO DAILY REPLACED BY [facility]; Protocol Last Admin: 05/16/21 09:20 Dose: 25 mg Documented by: JORDY Tamsulosin HCl (Tamsulosin Hcl 0.4 Mg Capsule) 0.8 mg PO DAILY REPLACED BY [facility] Last Admin: 05/16/21 09:20 Dose: 0.8 mg Documented by: JORDY Labs CBC & Chem 7: 05/16/21 06:47 05/16/21 06:47 Labs: Laboratory Results - last 24 hr 05/15/21 05/15/21 05/16/21 16:35 17:54 06:47 MCV 84.8 MCH 28.9 MCHC 34.1 RDW 13.3 Plt Count 106 L MPV 9.9 Absolute Nucleated RBC 0.000 Nucleated RBC % (auto) 0.0 ESR 88 H Anion Gap Estim Creat Clear Calc Estimated GFR Random Glucose Calcium Urine Color YELLOW Urine Appearance CLEAR Urine pH 6.0 Ur Specific [place] 1.015 Urine Protein NEG Urine Glucose (UA) NEG Urine Ketones NEG Urine Blood NEG Urine Nitrite NEG Ur Leukocyte Esterase NEG 05/16/21 06:47 MCV MCH MCHC RDW Plt Count MPV Absolute Nucleated RBC Nucleated RBC % (auto) ESR Anion Gap 12 Estim Creat Clear Calc 115.7 Estimated GFR > 60 Random Glucose 187 H Calcium 9.2 Urine Color Urine Appearance Urine pH Ur Specific Eden Urine Protein Urine Glucose (UA) Urine Ketones Urine Blood Urine Nitrite Ur Leukocyte Esterase Microbiology Microbiology Results: Microbiology 05/14/21 09:44 Blood Culture - Preliminary Blood - Venous No growth after 48 hours. 05/14/21 09:20 Blood Culture - Preliminary Blood - Venous No growth after 48 hours. 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 His CT scan shows diffuse ground glass opacities and he is significantly hypoxia. He will be admitted for further work up. Acute on Chronic resp failure with hypoxia oxygen requirement stable pt did not use home oxygen for at least 1 week prior to admission r/t underlying pneumonitis/ILD Pneumonitis/ILD work up in progress COVID negative; pt reports he is vaccinated RPP negative, procalcitonin 0.10 continue IV steroids, empiric coverage for bacterial infection with Rocephin + Doxy, started 05/14 (No evidence of sepsis at this time) Pulmonary following COPD, does not appear to be in exacerbation no wheezing appreciated continue baseline updrafts and inhalers HFrEF, not in exacerbation clinically does not appear to be fluid overloaded, bnp is also in the normal range; continue lasix, aldactone Hyperbilirubinemia no GI signs or symptoms to suggest biliary issues at this time bili trending down has cirrhosis per imaging -- pt denies drinking >2 years not due to severe sepsis Pancytopenia chronic and due to underlying alcoholic liver dx; NOT due to severe sepsis follow CBC Mood continue paxil, wellbutrin, abilify h/o substance abuse continue suboxone Full Code DVT pptx, lovenox Endorses his sister as HCP Attending Dr. Cardenas Quality Stroke Does the patient have a stroke diagnosis?: No VTE Prior VTE?: No VTE Risk Level:: Medical - moderate - high VTE Device Contraindication: Treatment Not Indicated VTE Drug Contraindication: N/A - Med Ordered
[2021-05-16] MEDS: Enoxaparin Sodium 40 MG/0.4 ML SYRINGE SUBCUT (15:45)
[2021-05-16] MEDS: Atorvastatin Calcium 40 MG TABLET PO (20:36)
[2021-05-17] VITALS (9 sets, daily range): BP systolic 127–162; BP diastolic 75–91; PULSE 75–85; RESP 18–22; TEMP 36.3–36.7; O2SAT 95–97
[2021-05-17] MEDS: buPROPion HCl XL 150 MG TAB.ER.24H PO (09:41)
[2021-05-17] MEDS: Spironolactone 25 MG TABLET PO (09:41)
[2021-05-17] MEDS: Chlorhexidine Gluc Oral Rinse 15 ML MOUTHWASH BUCCAL (09:41)
[2021-05-17] MEDS: Tamsulosin HCL 0.4 MG CAPSULE 0.8 MG PO (09:41)
[2021-05-17] MEDS: ARIPiprazole 5 MG TABLET PO (09:41)
[2021-05-17] MEDS: cloNIDine HCL 0.1 MG TABLET PO ×2 (09:41→20:52)
[2021-05-17] MEDS: buPROPion HCl XL 300 MG TAB.ER.24H PO (09:41)
[2021-05-17] MEDS: Furosemide 40 MG TABLET PO (09:41)
[2021-05-17] MEDS: Omeprazole 20 MG CAPSULE.DR PO (09:41)
[2021-05-17] MEDS: PARoxetine HCL 40 MG TABLET PO (09:41)
[2021-05-17] MEDS: Finasteride 5 MG TABLET PO (09:42)
[2021-05-17] MEDS: cefTRIAXone sodium 1 GM in 0.9 % Sodium Chloride 50 ML IV (09:42)
[2021-05-17] MEDS: Buprenorphine/Naloxone 8/2 mg FILM 2 FILM SUBLINGUAL (09:42)
[2021-05-17] MEDS: 0.9 % Sodium Chloride Flush 3 ML SYRINGE IVFLUSH ×3 (09:42→20:04)
[2021-05-17] MEDS: methylPREDNISolone Sod Succ 125 MG/2 ML VIAL 80 MG IVPUSH ×2 (09:42→20:48)
[2021-05-17] MEDS: Doxycycline Hyclate 100 MG in 0.9 % Sodium Chloride 250 ML 166.67 MG IV ×2 (09:42→20:01)
--- NOTE | 2021-05-17 11:35 | P.PNIM_ITS ---
Subjective Subjective Date of Service: 05/17/21 Interval History: seen and examined this morning follow up for respiratory failure/pneumonitis still reporting dyspnea with exertion Oxygen requirements stable Review of Systems Review of Systems: Yes all other systems are reviewed and are negative Constitutional Constitutional: Denies chills and Denies fever(s) Cardiovascular Cardiovascular: Denies chest pain and Reports dyspnea on exertion Respiratory Respiratory: Denies cough and Reports dyspnea on exertion Gastrointestinal Gastrointestinal: Denies abdominal pain Physical Exam Vital Signs: Vital Signs: Last Vital Signs Temp 97.4 F 05/17/21 10:58 Pulse 79 05/17/21 10:58 Resp 22 H 05/17/21 10:58 BP 145/85 H 05/17/21 10:58 Pulse Ox 96 05/17/21 10:58 Body Mass Index 34.4 Const: General: comfortable, alert and awake Nutritional Appearance: overweight Orientation/consciousness: patient oriented x3 HENMT: Head: Yes normocephalic and Yes atraumatic Eyes: Sclerae: sclerae normal Pupils: Equal, round and reactive pupils present Chest: Chest palpation & inspection: normal inspection of the chest Resp: Other: diminished breath sounds Effort & Inspection: normal respiratory effort and no respiratory distress Cardio: Rate: regular rate Rhythm: regular rhythm GI: Palpation (GI): Soft to palpation and nontender Neuro: General: patient oriented x3 Cranial nerves: Yes CN's II-XII intact bilaterally, Yes Equal, round and reactive pupils present and Yes Bilaterally intact EOM present Objective Data Active Medications Acetaminophen (Acetaminophen 325 Mg Tablet) 650 mg PO Q6H PRN PRN Reason: Pain, Mild (Pain Scale 1-3) Last Admin: 05/14/21 21:08 Dose: 650 mg Documented by: SASHA Aripiprazole (Aripiprazole 5 Mg Tablet) 5 mg PO DAILY [facility] Last Admin: 05/17/21 09:41 Dose: 5 mg Documented by: JORDY Atorvastatin Calcium (Atorvastatin Calcium 40 Mg Tablet) 40 mg PO BEDTIME [facility] Last Admin: 05/16/21 20:36 Dose: 40 mg Documented by: RANDELL Buprenorphine/Naloxone (Buprenorphine/Naloxone 8/2 Mg Film) 2 film SUBLINGUAL DAILY [facility] Last Admin: 05/17/21 09:42 Dose: 2 film Documented by: JORDY Bupropion HCl (Bupropion Hcl Xl 150 Mg Tab.Er.24h) 150 mg PO DAILY [facility] Last Admin: 05/17/21 09:41 Dose: 150 mg Documented by: JORDY Bupropion HCl (Bupropion Hcl Xl 300 Mg Tab.Er.24h) 300 mg PO DAILY [facility] Last Admin: 05/17/21 09:41 Dose: 300 mg Documented by: JORDY Chlorhexidine Gluconate (Chlorhexidine Gluc Oral Rinse 15 Ml Mouthwash) 15 ml BUCCAL BID [facility] Last Admin: 05/17/21 09:41 Dose: 15 ml Documented by: JORDY Clonidine HCl (Clonidine Hcl 0.1 Mg Tablet) 0.1 mg PO BID [facility]; Protocol Last Admin: 05/17/21 09:41 Dose: 0.1 mg Documented by: JORDY Enoxaparin Sodium (Enoxaparin Sodium 40 Mg/0.4 Ml Syringe) 40 mg SUBCUT Q24H [facility] Last Admin: 05/16/21 15:45 Dose: 40 mg Documented by: JORDY Finasteride (Finasteride 5 Mg Tablet) 5 mg PO DAILY [facility] Last Admin: 05/17/21 09:42 Dose: 5 mg Documented by: JORDY Furosemide (Furosemide 40 Mg Tablet) 40 mg PO DAILY [facility]; Protocol Last Admin: 05/17/21 09:41 Dose: 40 mg Documented by: JORDY Hydroxyzine HCl (Hydroxyzine Hcl 25 Mg Tablet) 25 mg PO Q8H PRN PRN Reason: Anxiety Last Admin: 05/15/21 17:08 Dose: 25 mg Documented by: JORDY Ceftriaxone Sodium 1 gm/ (Sodium Chloride) 50 mls @ 100 mls/hr IV Q24H [facility] Last Infusion: 05/17/21 11:09 Dose: 0 mls/hr Documented by: JORDY Doxycycline Hyclate 100 mg/ (Sodium Chloride) 250 mls @ 166.67 mls/hr IV Q12H [facility] Last Infusion: 05/17/21 11:32 Dose: 0 mls/hr Documented by: JORDY Methylprednisolone Sodium Succinate (Methylprednisolone Sod Succ 125 Mg/2 Ml Vial) 80 mg IVPUSH Q8H [facility] Last Admin: 05/17/21 09:42 Dose: 80 mg Documented by: JORDY Omeprazole (Omeprazole 20 Mg Capsule.) 20 mg PO DAILY [facility] Last Admin: 05/17/21 09:41 Dose: 20 mg Documented by: JORDY Ondansetron HCl (Ondansetron Hcl 4 Mg/2 Ml Vial) 4 mg IVPUSH Q8H PRN PRN Reason: Nausea and Vomiting Paroxetine HCl (Paroxetine Hcl 40 Mg Tablet) 40 mg PO DAILY [facility] Last Admin: 05/17/21 09:41 Dose: 40 mg Documented by: JORDY Pharmacy Consult (Consult Rx Perform Med Rec) 1 each MISCELLANE ONCE PRN PRN Reason: Consult order Sodium Chloride (0.9 % Sodium Chloride Flush 3 Ml Syringe) 3 ml IVFLUSH QSHIFT [facility] Last Admin: 05/17/21 09:42 Dose: 3 ml Documented by: JORDY Spironolactone (Spironolactone 25 Mg Tablet) 25 mg PO DAILY [facility]; Protocol Last Admin: 05/17/21 09:41 Dose: 25 mg Documented by: JORDY Tamsulosin HCl (Tamsulosin Hcl 0.4 Mg Capsule) 0.8 mg PO DAILY [facility] Last Admin: 05/17/21 09:41 Dose: 0.8 mg Documented by: JORDY Labs CBC & Chem 7: 05/16/21 06:47 05/16/21 06:47 Microbiology Microbiology Results: Microbiology 05/14/21 09:44 Blood Culture - Preliminary Blood - Venous No growth after 48 hours. 05/14/21 09:20 Blood Culture - Preliminary Blood - Venous No growth after 48 hours. 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 His CT scan shows diffuse ground glass opacities and he is significantly hypoxia. He will be admitted for further work up. Acute on Chronic resp failure with hypoxia oxygen requirements stable pt did not use home oxygen for at least 1 week prior to admission r/t underlying pneumonitis/ILD Pneumonitis/ILD work up in progress COVID negative; pt reports he is vaccinated RPP negative, procalcitonin 0.10 will wean solumedrol from q8h to q12h empiric coverage for bacterial infection with Rocephin + Doxy, started 05/14 (No evidence of sepsis at this time) Pulmonary following COPD, does not appear to be in exacerbation no wheezing appreciated continue baseline updrafts and inhalers HFrEF, not in exacerbation clinically does not appear to be fluid overloaded, bnp is also in the normal range; continue lasix, aldactone Hyperbilirubinemia no GI signs or symptoms to suggest biliary issues at this time bili trending down has cirrhosis per imaging -- pt denies drinking >2 years not due to severe sepsis Pancytopenia chronic and due to underlying alcoholic liver dx; NOT due to severe sepsis follow CBC Mood continue paxil, wellbutrin, abilify h/o substance abuse continue suboxone Full Code DVT pptx, lovenox Endorses his sister as HCP Attending Dr. Cardenas Quality Stroke Does the patient have a stroke diagnosis?: No VTE Prior VTE?: No VTE Risk Level:: Medical - moderate - high VTE Device Contraindication: Treatment Not Indicated VTE Drug Contraindication: N/A - Med Ordered
[2021-05-17] MEDS: Enoxaparin Sodium 40 MG/0.4 ML SYRINGE SUBCUT (15:57)
[2021-05-17] MEDS: Atorvastatin Calcium 40 MG TABLET PO (20:49)
[2021-05-17] MEDS: hydrOXYzine HCL 25 MG TABLET PO (20:52)
[2021-05-18] VITALS (8 sets, daily range): BP systolic 137–159; BP diastolic 73–87; PULSE 74–93; RESP 18–20; TEMP 36.2–36.8; O2SAT 9–98
[2021-05-18 07:15] LABS: Anion Gap 16 (12-20); Blood Urea Nitrogen 23 mg/dL (9-16); Calcium 8.9 mg/dL (8.4-10.2); Carbon Dioxide 20 mmol/L (22-29); Chloride 107 mmol/L (96-108); Creatinine Clr Calc Pharmacy 115.7; Estimated Glomerular Filt Rate > 60; Glucose Random 229 mg/dL (60-115); Potassium 4.6 mmol/L (3.3-5.1); Sodium 138 mmol/L (135-145)
[2021-05-18 09:29] LABS: Hematocrit 33.4 % (42-52); Hemoglobin 11.1 g/dl (14.0-18.0); Mean Corpuscular HGB Conc 33.2 g/dl (31.0-36.0); Mean Corpuscular Hemoglobin 28.5 pg (27.0-33.0); Mean Corpuscular Volume 85.6 fL (80-98); Mean Platelet Volume 9.7 fL (9.4-12.4); Red Cell Distribution Width 13.3 % (11.0-16.0); White Blood Count 4.4 X10*3/uL (4.8-10.8)
[2021-05-18 09:31] LABS: Platelet Count 83 X10*3/uL (160-400)
[2021-05-18] MEDS: Finasteride 5 MG TABLET PO (10:39)
[2021-05-18] MEDS: Buprenorphine/Naloxone 8/2 mg FILM 2 FILM SUBLINGUAL (10:39)
[2021-05-18] MEDS: methylPREDNISolone Sod Succ 125 MG/2 ML VIAL 80 MG IVPUSH (10:39)
[2021-05-18] MEDS: 0.9 % Sodium Chloride Flush 3 ML SYRINGE IVFLUSH ×3 (10:39→20:08)
[2021-05-18] MEDS: cefTRIAXone sodium 1 GM in 0.9 % Sodium Chloride 50 ML IV (10:39)
[2021-05-18] MEDS: buPROPion HCl XL 150 MG TAB.ER.24H PO (10:40)
[2021-05-18] MEDS: Chlorhexidine Gluc Oral Rinse 15 ML MOUTHWASH BUCCAL ×2 (10:40→20:08)
[2021-05-18] MEDS: Furosemide 40 MG TABLET PO (10:40)
[2021-05-18] MEDS: PARoxetine HCL 40 MG TABLET PO (10:40)
[2021-05-18] MEDS: buPROPion HCl XL 300 MG TAB.ER.24H PO (10:41)
[2021-05-18] MEDS: Omeprazole 20 MG CAPSULE.DR PO (10:41)
[2021-05-18] MEDS: ARIPiprazole 5 MG TABLET PO (10:41)
[2021-05-18] MEDS: Spironolactone 25 MG TABLET PO (10:41)
[2021-05-18] MEDS: Tamsulosin HCL 0.4 MG CAPSULE 0.8 MG PO (10:41)
[2021-05-18] MEDS: cloNIDine HCL 0.1 MG TABLET PO ×2 (10:42→20:08)
[2021-05-18] MEDS: Doxycycline Hyclate 100 MG in 0.9 % Sodium Chloride 250 ML 166.67 MG IV ×2 (11:24→20:08)
--- NOTE | 2021-05-18 13:59 | P.PNIM_ITS ---
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 His CT scan shows diffuse ground glass opacities and he is significantly hypoxia. He will be admitted for further work up. Acute on Chronic resp failure with hypoxia oxygen requirements stable pt did not use home oxygen for at least 1 week prior to admission r/t underlying pneumonitis/ILD Obtain a home oxygen evaluation Physical therapy evaluation Pneumonitis/ILD COVID negative; pt reports he is vaccinated RPP negative, procalcitonin 0.10 switched to prednisone from IV Solu-Medrol empiric coverage for bacterial infection with Rocephin + Doxy, started 05/14 (No evidence of sepsis at this time) Pulmonary following COPD, does not appear to be in exacerbation no wheezing appreciated continue baseline updrafts and inhalers HFrEF, not in exacerbation clinically does not appear to be fluid overloaded, bnp is also in the normal ran ge; continue lasix, aldactone Hyperbilirubinemia no GI signs or symptoms to suggest biliary issues at this time bili trending down has cirrhosis per imaging -- pt denies drinking >2 years not due to severe sepsis Pancytopenia chronic and due to underlying alcoholic liver dx; NOT due to severe sepsis follow CBC Mood continue paxil, wellbutrin, abilify h/o substance abuse continue suboxone Disposition. Likely discharge tomorrow if medically stable. Full Code DVT pptx, lovenox Attending Dr. Coleman Subjective Subjective Date of Service: 05/18/21 Review of Systems Follow up Pneumonitis Feeling better no sob , no cough Denies chest pain, abdominal pain, nausea, vomiting, diarrhea all other systems reviewed are negative Physical Exam Vital Signs: Vital Signs: Last Vital Signs Temp 98 F 05/18/21 10:52 Pulse 77 05/18/21 10:52 Resp 20 05/18/21 10:52 BP 153/82 H 05/18/21 10:52 Pulse Ox 97 05/18/21 10:52 Body Mass Index 34.4 Appearing in no acute distress lung sounds are clear to auscultation heart regular rate rhythm, clear S1, S2 positive bowel sounds, abdomen is soft, nontender neuro patient is alert x3, no focal deficits Objective Data Current Medications Generic Name Dose Route Start Last Admin Trade Name Wong PRN Reason Stop Dose Admin Acetaminophen 650 mg 05/14/21 15:05 05/14/21 21:08 Acetaminophen 325 Mg Tablet PO 650 mg Q6H PRN Administration Pain, Mild (Pain Scale 1-3) Aripiprazole 5 mg 05/15/21 09:00 05/18/21 10:41 Aripiprazole 5 Mg Tablet PO 5 mg DAILY [facility] Administration Atorvastatin Calcium 40 mg 05/15/21 21:00 05/17/21 20:49 Atorvastatin Calcium 40 Mg Tablet PO 40 mg BEDTIME [facility] Administration Buprenorphine/Naloxone 2 film 05/15/21 09:00 05/18/21 10:39 Buprenorphine/Naloxone 8/2 Mg Film SUBLINGUAL 2 film DAILY [facility] Administration Bupropion HCl 150 mg 05/16/21 09:00 05/18/21 10:40 Bupropion Hcl Xl 150 Mg Tab.Er.24h PO 150 mg DAILY [facility] Administration Bupropion HCl 300 mg 05/15/21 09:00 05/18/21 10:41 Bupropion Hcl Xl 300 Mg Tab.Er.24h PO 300 mg DAILY [facility] Administration Chlorhexidine Gluconate 15 ml 05/16/21 09:00 05/18/21 10:40 Chlorhexidine Gluc Oral Rinse 15 Ml Mouthwash BUCCAL 15 ml BID [facility] Administration Clonidine HCl 0.1 mg 05/15/21 09:00 05/18/21 10:42 Clonidine Hcl 0.1 Mg Tablet PO 0.1 mg BID [facility] Administration Protocol Enoxaparin Sodium 40 mg 05/14/21 15:00 05/17/21 15:57 Enoxaparin Sodium 40 Mg/0.4 Ml Syringe SUBCUT 40 mg Q24H [facility] Administration Finasteride 5 mg 05/15/21 09:00 05/18/21 10:39 Finasteride 5 Mg Tablet PO 5 mg DAILY [facility] Administration Furosemide 40 mg 05/15/21 09:00 05/18/21 10:40 Furosemide 40 Mg Tablet PO 40 mg DAILY [facility] Administration Protocol Hydroxyzine HCl 25 mg 05/15/21 07:40 05/17/21 20:52 Hydroxyzine Hcl 25 Mg Tablet PO 25 mg Q8H PRN Administration Anxiety Ceftriaxone Sodium 1 gm/ 50 mls @ 100 mls/hr 05/15/21 08:00 05/18/21 11:19 Sodium Chloride IV Infused Q24H [facility] Infusion Doxycycline Hyclate 100 mg/ 250 mls @ 166.67 mls/hr 05/14/21 20:00 05/18/21 13:09 Sodium Chloride IV Infused Q12H [facility] Infusion Methylprednisolone Sodium Succinate 80 mg 05/17/21 21:00 05/18/21 10:39 Methylprednisolone Sod Succ 125 Mg/2 Ml Vial IVPUSH 80 mg BID [facility] Administration Omeprazole 20 mg 05/15/21 09:00 05/18/21 10:41 Omeprazole 20 Mg Capsule.Dr PO 20 mg DAILY [facility] Administration Ondansetron HCl 4 mg 05/14/21 15:05 Ondansetron Hcl 4 Mg/2 Ml Vial IVPUSH Q8H PRN Nausea and Vomiting Paroxetine HCl 40 mg 05/15/21 09:00 05/18/21 10:40 Paroxetine Hcl 40 Mg Tablet PO 40 mg DAILY [facility] Administration Pharmacy Consult 1 each 05/14/21 14:42 Consult Rx Perform Med Rec MISCELLANE ONCE PRN Consult order Sodium Chloride 3 ml 05/14/21 16:00 05/18/21 10:39 0.9 % Sodium Chloride Flush 3 Ml Syringe IVFLUSH 3 ml QSHIFT [facility] Administration Spironolactone 25 mg 05/15/21 09:00 05/18/21 10:41 Spironolactone 25 Mg Tablet PO 25 mg DAILY [facility] Administration Protocol Tamsulosin HCl 0.8 mg 05/15/21 09:00 05/18/21 10:41 Tamsulosin Hcl 0.4 Mg Capsule PO 0.8 mg DAILY [facility] Administration Labs CBC & Chem 7: 05/18/21 06:12 05/18/21 06:12 Labs: Laboratory Results - last 24 hr 05/18/21 05/18/21 06:12 06:12 MCV 85.6 MCH 28.5 MCHC 33.2 RDW 13.3 Plt Count 83 L MPV 9.7 Absolute Nucleated RBC 0.000 Nucleated RBC % (auto) 0.0 Anion Gap 16 Estim Creat Clear Calc 115.7 Estimated GFR > 60 Random Glucose 229 H Calcium 8.9 Microbiology Microbiology Results: Microbiology 05/14/21 09:44 Blood - Venous Blood Culture - Preliminary No growth after 48 hours. 05/14/21 09:20 Blood - Venous Blood Culture - Preliminary No growth after 48 hours. Quality Stroke Does the patient have a stroke diagnosis?: No VTE Prior VTE?: No VTE Risk Level:: Medical - moderate - high VTE Device Contraindication: Treatment Not Indicated VTE Drug Contraindication: N/A - Med Ordered
[2021-05-18] MEDS: Enoxaparin Sodium 40 MG/0.4 ML SYRINGE SUBCUT (14:49)
[2021-05-18 18:56] LABS: Anti Nuclear Antibody Screen NEGATIVE (NEGATIVE)
[2021-05-18] MEDS: Atorvastatin Calcium 40 MG TABLET PO (20:08)
[2021-05-19 03:00] VITALS: BP 142/81; PULSE 78; RESP 20; TEMP 36.2; O2SAT 94
[2021-05-19 07:52] VITALS: BP 159/81; PULSE 83; RESP 18; TEMP 36.7; O2SAT 97
[2021-05-19] MEDS: 0.9 % Sodium Chloride Flush 3 ML SYRINGE IVFLUSH (09:15)
[2021-05-19] MEDS: Tamsulosin HCL 0.4 MG CAPSULE 0.8 MG PO (09:15)
[2021-05-19] MEDS: cefTRIAXone sodium 1 GM in 0.9 % Sodium Chloride 50 ML IV (09:15)
[2021-05-19] MEDS: PARoxetine HCL 40 MG TABLET PO (09:16)
[2021-05-19] MEDS: buPROPion HCl XL 150 MG TAB.ER.24H PO (09:16)
[2021-05-19] MEDS: cloNIDine HCL 0.1 MG TABLET PO (09:16)
[2021-05-19] MEDS: Omeprazole 20 MG CAPSULE.DR PO (09:17)
[2021-05-19] MEDS: Spironolactone 25 MG TABLET PO (09:17)
[2021-05-19] MEDS: Furosemide 40 MG TABLET PO (09:17)
[2021-05-19] MEDS: Buprenorphine/Naloxone 8/2 mg FILM 2 FILM SUBLINGUAL (09:17)
[2021-05-19] MEDS: predniSONE 20 MG TABLET 40 MG PO (09:17)
[2021-05-19] MEDS: buPROPion HCl XL 300 MG TAB.ER.24H PO (09:17)
[2021-05-19] MEDS: ARIPiprazole 5 MG TABLET PO (09:17)
[2021-05-19] MEDS: Finasteride 5 MG TABLET PO (09:18)
[2021-05-19] MEDS: Doxycycline Hyclate 100 MG in 0.9 % Sodium Chloride 250 ML 166.67 MG IV (10:11)
--- NOTE | 2021-05-19 10:46 | PM.DS ---
DS: Providers Provider Date of Service: 05/19/21 Date of admission: 05/14/21 15:01 Primary care physician: Juanis Cook MD Consults: 05/14/21 15:12 Consult to Pulmonology Routine Consulting Provider: Uli Jama Reason for consultation: Significant pulmonary ground glass opacities Attending physician on discharge: Gautam Coleman Discharging clinician: Herminia Jama DS: Diagnosis Discharge Diagnosis (1) Acute respiratory failure: Status: Acute (2) Pneumonitis: Status: Acute DS: Summary Hospital Course Hospital Course: HP as per admitting provider This is a 55-year-old male with a past medical history of known COPD and prior chronic respiratory failure on home oxygen who presents to the hospital with complaints of progressive shortness of breath and extreme fatigue over the last 3-4 days.? By his own admission, due to his traumatic brain injury, the patient is a poor historian.? He reports that last month he was treated at [facility] for some ?lung issue.?? He reports that after his hospitalization he was transferred to short-term rehabilitation where he spends several weeks and was subsequently discharged home.? He reports that it since then he has been doing fairly well up until his symptoms started about 3-4 days ago.? He reports progressive shortness of breath, reporting that he is unable to walk from his living room to bathroom without getting short of breath and having to stop.? He reports a nonproductive cough which is somewhat chronic.? He denies any fevers or chills.? Most of all he reports extreme exhaustion.? He denies any known sick contacts, particularly the COVID.? He reports that he received his 2 shot COVID vaccination, although he is unsure if it was Moderna or Pfizer.? In regards to his chronic home oxygen, he reports that he has been without this for quite some time because he sent the oxygen back as he did not think he needed.? When asked if this was recommended by a physician or a provider, he reports that he is unsure. Upon arrival to the emergency room the patient was noted to be hypoxic down to 69% on room air.? He was quickly treated with Ventimask and subsequently nasal cannula.? His workup in the emergency room showed a CT scan which shows diffuse ground-glass opacities which appear to be to be worse than his prior CT scan from February/March.? He will be given a dose of IV Solu-Medrol, has been given a dose of IV Levaquin and will be admitted for further treatment . Acute respiratory failure secondary to pneumonitis. Treated with IV solumedrol. Rocephin and Doxycycline. Oxygen titrated down to room air. He did not qualify for home oxygen. He was encouraged to quit smoking cigarettes. He will be sent home with 5 more days of antibiotics. Time Spent with Patient Time attestation: Total time spent providing and/or coordinating discharge services: Discharge coordination time: Greater than 30 minutes Quality: Stroke Does the patient have a stroke diagnosis?: No Physical Exam Vital Signs: Vital Signs: Last Vital Signs Temp 98.0 F 05/19/21 07:52 Pulse 83 05/19/21 07:52 Resp 18 05/19/21 07:52 BP 159/81 H 05/19/21 07:52 Pulse Ox 97 05/19/21 07:52 Body Mass Index 34.4 Appearing in no acute distress head is normocephalic atraumatic eyes pupils are PERRLA sclera is anicteric mouth throat mucous membranes are intact and moist neck is supple no lymphadenopathy, no JVD noted lung sounds are clear to auscultation heart regular rate rhythm, clear S1, S2 positive bowel sounds, abdomen is soft, nontender neuro patient is alert x3, no focal deficits DS: Data Data Completed and Pending Labs on day of discharge: Laboratory Results - last 24 hr 05/15/21 16:34 VICTORINA Screen NEGATIVE VICTORINA Titer TNP VICTORINA Titer 2 TNP VICTORINA Titer 3 TNP VICTORINA Pattern TNP VICTORINA Pattern 2 TNP VICTORINA Pattern 3 TNP Preliminary micro results at discharge 05/14/21 09:44 Blood Culture - Preliminary Blood - Venous No growth after 48 hours. 05/14/21 09:20 Blood Culture - Preliminary Blood - Venous No growth after 48 hours. Discharge Plan Discharge Anticipated Discharge Date/Time: 05/19/21 10:27 Patient Disposition: Home, Self-Care Discharge Diagnosis: COPD exacerbation Referrals: Uli Jama MD [Physician] - 1 Week [place] Juanis Cook MD [Primary Care Provider] - 1 Week Discharge Medications: New doxycycline hyclate 100 mg tablet 100 mg PO BID Qty: 10 RF: 0 cefuroxime axetil 500 mg tablet 500 mg PO BID Qty: 10 RF: 0 Continued prednisone 10 mg tablet See Taper mg PO DAILY Qty: 30 RF: 0 furosemide 40 mg tablet 1 tab PO DAILY RF: 0 bupropion HCl 150 mg tablet sustained-release 12 hr 1 tab PO QAM RF: 0 clonidine HCl 0.1 mg tablet 1 tab PO BID RF: 0 spironolactone 25 mg tablet 1 tab PO DAILY RF: 0 tamsulosin 0.4 mg capsule 2 cap PO DAILY RF: 0 omeprazole 20 mg capsule,delayed release(DR/EC) 1 cap PO DAILY RF: 0 hydroxyzine HCl 25 mg tablet 25 mg PO Q8H PRN (Reason: Anxiety) RF: 0 paroxetine HCl 40 mg tablet 1 tab PO QAM RF: 0 aripiprazole 5 mg tablet 1 tab PO DAILY RF: 0 bupropion HCl 300 mg tablet extended release 24 hr 1 tab PO QAM RF: 0 buprenorphine-naloxone [Suboxone] 8-2 mg film 2 strip sublingual DAILY RF: 0 Trelegy Ellipta 200-62.5-25 mcg blister with device 1 puff inhalation DAILY RF: 0 atorvastatin 40 mg tablet 1 tab PO BEDTIME RF: 0 finasteride 5 mg tablet 1 tab PO DAILY RF: 0 Basaglar KwikPen U-100 Insulin 100 unit/mL (3 mL) insulin pen 40 unit subcut BEDTIME RF: 0 Discharge Orders: Discharge Order (Routine); Ordered 05/19/21 Ordered By: Herminia Jama Diet: advance to usual diet Activity on Discharge: As tolerated Stand Alone Forms: Patient Portal Discharge page Care Plan Goals: Stop smoking cigarettes Health Concerns: COPD exacerbation Plan of Treatment: Take medications as prescribed Follow up with pulmonology for further workup for your respiratory status Assessment: See discharge summary
[2021-05-19 11:34] VITALS: BP 133/88; PULSE 86; RESP 18; TEMP 36.1; O2SAT 94
--- NOTE | 2021-05-19 11:44 | PC.NURSE ---
Skin assessment completed today. Patient had bilateral knee abrasion on admission which are now scabbed. No open areas on skin or pressure areas.
[2021-05-19 22:46] LABS: Immunoglobulin E 4 kU/L (<OR=114)
[2021-05-19 23:23] VITALS: BP 126/87; PULSE 90; RESP 18; TEMP 36.6; O2SAT 100
[2021-05-20 14:30] LABS: Asperg fumigatus Precip Abs NEGATIVE (NEGATIVE); Micropoly faeni Abs NEGATIVE (NEGATIVE); Pigeon serum Abs NEGATIVE (NEGATIVE); Saccharo pora viridis Abs NEGATIVE (NEGATIVE); Thermo candidus Abs NEGATIVE (NEGATIVE); Thermoa vulgaris #1 NEGATIVE (NEGATIVE)
== END 2021-05-19 16:30 | disposition home or self-care (01) | DRG 193 ==
LOC: HO.ED 14:29 → HO.EDOVER 15:56 → HO.IMC 17:40
PROVIDERS: Hospitalist; Physician Assistant Medical; Admitting Provider Family Medicine; Emergency Provider Emergency Medicine; PCP Internal Medicine; Visit Provider Nurse Practitioner Acute Care
DX: J18.9 Pneumonia, unspecified organism (principal); J96.21 Acute and chronic respiratory failure with hypoxia; I50.22 Chronic systolic (congestive) heart failure; D61.818 Other pancytopenia; J44.0 Chronic obstructive pulmonary disease with (acute) lower respiratory infection; J44.1 Chronic obstructive pulmonary disease with (acute) exacerbation; F17.210 Nicotine dependence, cigarettes, uncomplicated; Z20.822 Contact with and (suspected) exposure to COVID-19; Z71.6 Tobacco abuse counseling; Z87.820 Personal history of traumatic brain injury; Z79.899 Other long term (current) drug therapy
CPT/HCPCS: 36415; 71045; 71275; 80048; 80076; 81003; 82077; 82785; 82947; 83605; 83880; 84145; 84484; 85025; 85027; 85379; 85610; 85652; 86038; 86039; 86331; 86606; 86609; 87040; 87633; 87635; 93005; 96365; 97161; 99285; J0696; J1650; J1956; J2930; Q9967

== ENCOUNTER 2021-07-08 13:25 | Outpatient (REF) | payer MEDICARE, MEDICAID, SELFPAY ==
--- NOTE | ~2021-07-08 | XR_ITS ---
EXAMINATION: XR CHEST CLINICAL INFORMATION: Nicotine dependence COMPARISON: 05/14/2021 TECHNIQUE: 2 views of the chest were obtained. FINDINGS: The lungs are well expanded. Mild central vascular prominence without overt edema. Improved aeration of the lungs compared to prior. No pneumothorax. No pleural effusion. The cardiomediastinal silhouette is within normal limits. XR/XR chest 2V IMPRESSION: Significantly improved aeration of the lungs when compared to prior. Central vascular prominence without overt edema.
== END 2021-07-08 13:26 | disposition home or self-care (01) ==
LOC: HO.XRAY 13:25
PROVIDERS: Visit Provider Internal Medicine
DX: E66.9 Obesity, unspecified (principal); J84.9 Interstitial pulmonary disease, unspecified; G47.33 Obstructive sleep apnea (adult) (pediatric); F17.200 Nicotine dependence, unspecified, uncomplicated; Z71.6 Tobacco abuse counseling
CPT/HCPCS: 71046; 99212

== ENCOUNTER → 2021-09-08 14:15 | Outpatient (BNVA) | payer MEDICARE, MEDICAID, SELFPAY | PROVIDERS: PCP Internal Medicine; Visit Provider Internal Medicine | DX: J44.9 Chronic obstructive pulmonary disease, unspecified (principal); G47.33 Obstructive sleep apnea (adult) (pediatric); E66.9 Obesity, unspecified; J84.9 Interstitial pulmonary disease, unspecified; F17.200 Nicotine dependence, unspecified, uncomplicated; F17.210 Nicotine dependence, cigarettes, uncomplicated; Z68.37 Body mass index [BMI] 37.0-37.9, adult | CPT/HCPCS: 99212 ==

== ENCOUNTER 2021-09-15 12:40 | Outpatient (REF) | payer MEDICARE, MEDICAID, SELFPAY ==
--- NOTE | 2021-09-15 17:21 | PFT_ITS ---
INDICATION: COPD and interstitial lung disease. SPIROMETRY: The FEV1 to FVC of 79% with an FEV1 of 2.08 L, which is 56% predicted and FVC of 2.64 L, which is 54% predicted. No significant response to bronchodilators noted. Maximum voluntary ventilation 53% predicted. LUNG VOLUMES: Total lung capacity 63% predicted with an expiratory reserve volume of 12% predicted secondary to an elevated BMI. DIFFUSION CAPACITY: DLCO 42% predicted. COMPARISONS: None available. INTERPRETATION: There is no obstructive ventilatory defect. No significant response to bronchodilators noted. The patient does have a moderate decrease in the maximum voluntary ventilation consistent with likely deconditioning. Lung volumes demonstrate a moderate restrictive ventilatory defect consistent with history of interstitial lung disease and also from the elevated BMI. The patient has a severe diffusion impairment. Clinical correlation warranted. MD DENNIS Pascal/LEIGHTON / [id number]
== END 2021-09-15 12:41 | disposition home or self-care (01) ==
LOC: HO.RESP 12:40
PROVIDERS: PCP Internal Medicine; Visit Provider Internal Medicine
DX: J44.9 Chronic obstructive pulmonary disease, unspecified (principal); J84.9 Interstitial pulmonary disease, unspecified; F17.200 Nicotine dependence, unspecified, uncomplicated
CPT/HCPCS: 94060; 94727; 94729

== ENCOUNTER 2021-10-12 10:51 | Emergency (ER) | payer MEDICARE, MEDICAID, SELFPAY ==
[2021-10-12] VITALS (8 sets, daily range): BP systolic 120–159; BP diastolic 79–102; PULSE 96–114; RESP 11–18; TEMP 36.2–36.7; O2SAT 96–99; BMI 34.4
--- NOTE | ~2021-10-12 | XR_ITS ---
EXAMINATION: XR CHEST CLINICAL INFORMATION: Shortness of breath COMPARISON: Chest x-ray 07/08/2021 TECHNIQUE: Frontal view of the chest was obtained. FINDINGS: Cardiac silhouette is stable. Hypoinflated lungs. There is no lobar consolidation. No pleural effusion or pneumothorax. No gross osseous abnormality. XR/XR chest 1V IMPRESSION: Hypoinflated lungs without acute pulmonary pathology.
--- NOTE | ~2021-10-12 | CT_ITS ---
EXAMINATION: CT ABDOMEN AND PELVIS WITH CONTRAST CLINICAL INFORMATION: Right-sided abdominal pain. EtOH. COMPARISON: CT abdomen pelvis 07/10/2019 and CTA chest 05/14/2021 TECHNIQUE: Multidetector volumetric images were obtained from the superior aspect of the liver through the pubic symphysis following administration 85 mL of Omnipaque 350 intravenous contrast. Sagittal and coronal reformatted images were obtained on the technologist's workstation. This CT examination was performed using dose optimization techniques as appropriate, variously including the following: *Automated exposure control *Adjustment of mA and/or kV according to patient size (this includes techniques or standardized protocols for targeted exams where dose is matched to indication/reason for exam; i.e. extremities or head) *Use of iterative reconstruction technique DLP: 1006 mGy-cm FINDINGS: Visualized lung bases demonstrate mild dependent atelectasis. Cirrhotic appearance of the liver. The gallbladder is surgically absent. Mild fatty atrophy of the pancreas. Spleen remains enlarged measuring approximately 16 cm in maximum AP dimension. There is similar mild nodularity of the left adrenal gland. The right adrenal gland is unremarkable. Symmetrically enhancing kidneys. There is a 2 mm nonobstructing calculus within the upper pole the right kidney. There is no hydronephrosis of either kidney. Normal caliber loops of small and large bowel. Mild colonic diverticulosis without CT evidence to suggest active diverticulitis. Normal appendix. There is mild mesenteric stranding abutting the rectum, nonspecific. The bladder is normal in appearance. The prostate gland is normal in size. Surgical clips again noted above the prostate gland. Small fat-containing inguinal hernias bilaterally, slightly larger on the left. No gross free pelvic fluid. No inguinal lymphadenopathy. Mild to moderate degenerative changes of the spine. Numerous compression deformities of the visualized thoracolumbar spine are stable. Old healed rib fractures. Small sclerotic focus of the right sacrum is stable and statistically a bone island. CT/CT abdomen pelvis w con IMPRESSION: -Cirrhotic appearance of the liver. -Splenomegaly. - Mild mesenteric stranding involving the rectum, nonspecific but possibly roofing sales representative of proctitis. -Colonic diverticulosis. -2 mm nonobstructing right renal calculus. Fleischner guidelines were followed.
--- NOTE | 2021-10-12 11:08 | PC.NURSE ---
pt is a&ox3, vss, sinus tach on potline monitor, maintaining 96% O2 on room air, on 2L O2 at home - SOB w exertion at home, provider saw pt, waiting lab orders.
--- NOTE | 2021-10-12 11:09 | ECG_ITS ---
Test Reason : CHEST PAIN Blood Pressure : / mmHG Vent. Rate : 109 BPM Atrial Rate : 109 BPM P-R Int : 158 ms QRS Dur : 084 ms QT Int : 324 ms P-R-T Axes : 023 030 -16 degrees QTc Int : [address] & T wave abnormality, consider inferior ischemia Abnormal ECG When compared with ECG of 14-MAY-2021 08:50, T wave inversion now evident in Inferior leads Nonspecific T wave abnormality now evident in Anterior leads Referred By: Kiara Lopez Electronically Signed By:Yoni Treadwell
[2021-10-12] MEDS: 0.9 % Sodium Chloride 1,000 ML 999 ML IV (11:36)
[2021-10-12] MEDS: LORazepam 2 MG/ML VIAL 1 MG IVPUSH (11:36)
[2021-10-12 11:40] LABS: MANUAL DIFF FLAG NO
--- NOTE | 2021-10-12 11:43 | PC.NURSE ---
IV line placed, EKG obtained, labs drawn, results pending, will continue to monitor.
[2021-10-12 11:44] LABS: Basophils Absolute Auto 0.1 X10*3/uL (0.0-0.2); Basophils Percent Auto 0.5 % (0-2); Eosinophils Absolute Auto 0.1 X10*3/uL (0.0-0.4); Eosinophils Percent Auto 1.2 % (0-4); Hematocrit 39.6 % (42.0-52.0); Hemoglobin 14.1 g/dl (14.0-18.0); Imm Gran Abs Auto 0.06 X10*3/uL (0.00-0.03); Imm Gran Pct Auto 0.6 % (0.0-0.4); Lymphocytes Absolute Auto 1.7 X10*3/uL (1.2-4.9); Lymphocytes Percent Auto 17.3 % (20-40); Mean Corpuscular HGB Conc 35.6 g/dl (31.0-36.0); Mean Corpuscular Hemoglobin 29.9 pg (27.0-33.0); Mean Corpuscular Volume 84.1 fL (80.0-98.0); Mean Platelet Volume 9.2 fL (9.4-12.4); Monocytes Absolute Auto 0.7 X10*3/uL (0.1-1.2); Monocytes Percent Auto 7.2 % (2-11); Neutrophils Percent Auto 73.2 % (45-73); Platelet Count 122 X10*3/uL (160-400); Red Blood Count 4.71 X10*6/uL (4.60-5.80); Red Cell Distribution Width 13.5 % (11.0-16.0); White Blood Count 9.5 X10*3/uL (4.8-10.8)
--- NOTE | 2021-10-12 11:45 | ED.CHESTPAIN ---
HPI - Chest Pain General Chief Complaint: Chest Pain Stated Complaint: CP,SOB,95 5 RA, NO O2 AVAILABLE X'S 2 WEEKS Time Seen by Provider: 10/12/21 10:56 Source: patient and EMS Mode of arrival: EMS History of Present Illness HPI narrative: 56-year-old male with a PMHx of anxiety, ARDS, CHF, substance abuse, ETOH abuse, cirrhosis, COPD on home O2 at night, HTN, ILD, TBI, presenting to the ED complaining of worsening SOB x1 week. Reports Fell off the wagon over the past 5 days has been drinking 40 nips and using cocaine daily for the past 5 days. Admits last drink about 5 hours ago, last used cocaine 2 days ago. 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 Denies fever, cough, nausea, vomiting, diarrhea with pedal edema MD complaint: chest pain Related Data Home Medications Medication Instructions Recorded Confirmed aripiprazole 5 mg tablet 1 tab PO DAILY 01/21/21 09/08/21 buprenorphine 8 mg-naloxone 2 mg 2 strip SUBLINGUAL DAILY 01/21/21 09/08/21 sublingual film (Suboxone) bupropion HCl 150 mg tablet,12 hr 1 tab PO QAM 01/21/21 09/08/21 sustained-release bupropion HCl 300 mg 24 hr tablet, 1 tab PO QAM 01/21/21 09/08/21 extended release clonidine HCl 0.1 mg tablet 1 tab PO BID 01/21/21 09/08/21 fluticasone fur. 200 mcg-umeclid 1 puff INHALATION DAILY 01/21/21 09/08/21 62.5 mcg-vilant 25 mcg inhalat.powder (Trelegy Ellipta) furosemide 40 mg tablet 1 tab PO DAILY 01/21/21 05/14/21 omeprazole 20 mg capsule,delayed 1 cap PO DAILY 01/21/21 05/14/21 release paroxetine HCl 40 mg tablet 1 tab PO QAM 01/21/21 05/14/21 spironolactone 25 mg tablet 1 tab PO DAILY 01/21/21 05/14/21 tamsulosin 0.4 mg capsule 2 cap PO DAILY 01/21/21 05/14/21 atorvastatin 40 mg tablet 1 tab PO BEDTIME 05/14/21 09/08/21 finasteride 5 mg tablet 1 tab PO DAILY 05/14/21 09/08/21 insulin glargine 100 unit/mL (3 40 unit SUBCUT BEDTIME 05/14/21 05/14/21 mL) subcutaneous pen (Basaglar KwikPen U-100 Insulin) blood sugar diagnostic (FreeStyle #10 ea 09/08/21 09/08/21 Lite Strips) docusate sodium 100 mg capsule 100 mg PO BID PRN 09/08/21 09/08/21 folic acid 1 mg tablet 1 mg PO DAILY 09/08/21 09/08/21 hydroxyzine HCl 25 mg tablet mg PO 09/08/21 09/08/21 ibuprofen 600 mg tablet 600 mg PO Q8H PRN 09/08/21 09/08/21 lancets 30 gauge (Ultra-Care #100 ea 09/08/21 09/08/21 Lancets) pen needle,diabetic dual safty 30 #100 ea 09/08/21 09/08/21 gauge x 3/16 (BD AutoShield Duo Pen Needle) Previous Rx's Medication Instructions Recorded albuterol sulfate 90 mcg/actuation 1 inh INHALATION QID PRN #8.5 g 05/19/21 aerosol inhaler (ProAir HFA) sulfamethoxazole 800 1 tab PO Q12H 7 Days #14 tab 10/12/21 mg-trimethoprim 160 mg tablet (Bactrim DS) Allergies Allergy/AdvReac Type Severity Reaction Status Date / Time No Known Allergies Allergy Verified 10/12/21 10:58 [No Known Allergies*] Review of Systems Review of Systems: Constitutional: No Fever, No Chills, No Fatigue, No Malaise ENT/Mouth: No Ear Pain, No Nasal Congestion, No Sinus Pain, No Hoarseness, No sore throat, No Rhinorrhea, No Swallowing Difficulty Eyes: No Eye Pain, No Swelling, No Redness, No Discharge Cardiovascular: + Chest Pain, + SOB, No Dyspnea on Exertion, No Orthopnea, No Edema, No Palpitations Respiratory: No Cough, No Sputum, No Dyspnea Gastrointestinal: No Nausea, No Vomiting, No Diarrhea, No Constipation, + Abdominal pain Genitourinary: No Dysuria, No Urinary Frequency, No Hematuria, No Flank Pain, No Urinary Flow Changes Musculoskeletal: No joint pain, No Myalgias, No Joint Swelling Skin: No Skin Lesions, No rash Neuro: No Weakness, No Numbness, No Paresthesias, No Loss of Consciousness, No Headache Psych: Denies SI/HI Yes all other systems are reviewed and are negative [facility] Past Medical History Attestation statement: The following information was validated with the patient. Medical History Acute interstitial pneumonitis Anxiety ARDS (adult respiratory distress syndrome) ARDS (adult respiratory distress syndrome) CHF (congestive heart failure) Cocaine abuse Community acquired pneumonia COPD (chronic obstructive pulmonary disease) COPD (chronic obstructive pulmonary disease) COPD exacerbation COPD exacerbation ETOH abuse Hypertension Hypoxia ILD (interstitial lung disease) Interstitial lung disease Liver cirrhosis Obesity (BMI 35.0-39.9 without comorbidity) Obesity (BMI 35.0-39.9 without comorbidity) KATHYA (obstructive sleep apnea) KATHYA (obstructive sleep apnea) Pneumonia Pneumonia Pneumonitis Sepsis Smoker TBI (traumatic brain injury) Surgical History H/O brain surgery No significant past surgical history Family History Family History Other Lymphoma Social History Social History Household Members: None Housing: Apartment Housing Other:: Sober House Do you presently have visiting nurse or other home services: No Alcohol intake: current Alcohol intake frequency: 3 or more drinks per day Alcohol type: hard liquor Patient Tobacco Use Status: Never used Tobacco Tobacco use type: Cigarette Cigarette Packs Per Day: 0.5 Cigarettes Per Day: 7 Second Hand Smoke Exposure: Yes Use of substances other than those prescribed or required for medical reasons: Yes Substance Use Type: Crack/Cocaine Last Used Substance: Days (ago) Any prior treatment program specific to substance use: Yes Advance Directives: Yes Advance Directives on File: Yes Advance Directives Date on File: 05/20/21 service: No Current occupational status: unemployed and disabled Physical Exam Vital Signs: Vital Signs: Last Vital Signs Temp 98.1 F 10/12/21 14:00 Pulse 105 H 10/12/21 16:00 Resp 11 L 10/12/21 16:00 BP 155/95 H 10/12/21 16:00 Pulse Ox 99 10/12/21 16:00 BMI result Body Mass Index 34.4 Const: General: cooperative and no acute distress Orientation/consciousness: patient oriented x3 Limitations: no limitations HENMT: Head: Yes normal to inspection and Yes atraumatic Ears: hearing grossly normal bilaterally General nose exam: Normal external nose present Face and sinus: Yes normal facial exam Eyes: General: appearance normal, both eyes and all related structures Pupils: Equal, round and reactive pupils present EOM: EOMs intact bilaterally Neck: Neck: Yes normal visual inspection and Yes no meningeal signs Resp: Effort & Inspection: normal respiratory effort and no respiratory distress Auscultation: clear to auscultation bilaterally, no rales, no rhonchi and no wheezes Cardio: Rate: regular rate and bradycardic Heart sounds: S1 normal heart sound present and S2 normal heart sound present GI: Inspection: Yes normal to inspection Palpation (GI): Soft to palpation, Tenderness to palpation present (GI) in the RLQ and in the RUQ, no guarding and not rigid : General: Yes no CVA tenderness Back/Spine/Pelvis: Back: no CVA tenderness Skin: Rashes: no rashes Wounds: no wounds Neuro: General: patient oriented x3, tone normal, moves all extremities, no meningeal signs, no focal motor deficits and CN's II-XI intact bilaterally Cranial nerves: Yes Equal, round and reactive pupils present Cognition (Neuro): normal cognition Gait exam (Neuro): Normal gait present Motor exam (neuro): Motor fasciculations not present Extrem: General: Yes normal to inspection and Yes no pedal edema Course Course Course Narrative: -1242-- No leukocytosis. Hypokalemic at 3.1 > PO repletion ordered, bilirubin chronically elevated -troponin negative, will obtain 3hr repeat -ethanol 34 XR chest 1V IMPRESSION: Hypoinflated lungs without acute pulmonary pathology. 1354--CT abdomen pelvis w con IMPRESSION: -Cirrhotic appearance of the liver. -Splenomegaly. - Mild mesenteric stranding involving the rectum, nonspecific but possibly chain sales representative of proctitis. -Colonic diverticulosis. -2 mm nonobstructing right renal calculus. >> upon further questioning patient denies rectal pain or anal intercourse/FB insertion. Will treat with empiric p.o. Bactrim, 1st dose given in the ED -1535--repeat troponin equivocal. Re-evaluation patient sleeping comfortably, in no apparent distress. Results discussed with patient including worrisome signs and symptoms and strict return precautions. Will ambulate with pulse ox, then likely plan for detox -patient ambulated with pulse ox on room air maintaining sats between 95-98% on room air. Patient is medically cleared for detox. Physician observation initiated patient needs more time to be placed in detox -173--patient will have bed at [facility] detox tomorrow, no bed tonight. Patient has no where to go this evening, and no ability to get Rx's at a pharmacy. Due to risk of ETOH withdrawal will keep in ED overnight for detox in AM. 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 On exam tachycardic likely from mild ETOH withdrawal, NAD/nontoxic, lungs CTA, abdomen soft with RUQ/RLQ TTP, no rebound or guarding, no pedal edema/calf tenderness. Concern for ACS/cocaine chest pain vs COPD exacerbation although lungs CTA. 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 Lower concern for pneumonia. Concern for cirrhosis/appendicitis/cholecystitis/lithiasis. No evidence of ascites. Plan: EKG, labs, UA, CXR, CT/AP, IVF, IV Ativan, family coach eval, re-evaluate Medical Records Data Attestation: I reviewed the patient's medical records. Lab Data Attestation: I reviewed the patient's lab results. Result diagrams: 10/12/21 11:34 10/12/21 11:34 Labs: Lab Results 10/12/21 10/12/21 10/12/21 Range/Units 11:34 11:34 11:34 WBC 9.5 (4.8-10.8) X10*3/uL RBC 4.71 (4.60-5.80) X10*6/uL Hgb 14.1 (14.0-18.0) g/dl Hct 39.6 L (42.0-52.0) % MCV 84.1 (80.0-98.0) fL MCH 29.9 (27.0-33.0) pg MCHC 35.6 (31.0-36.0) g/dl RDW 13.5 (11.0-16.0) % Plt Count 122 L (160-400) X10*3/uL MPV 9.2 L (9.4-12.4) fL Immature Gran % (Auto) 0.6 H (0.0-0.4) % Neut % (Auto) 73.2 H (45-73) % Lymph % (Auto) 17.3 L (20-40) % Garden % (Auto) 7.2 (2-11) % Eos % (Auto) 1.2 (0-4) % Baso % (Auto) 0.5 (0-2) % Lymph # (Auto) 1.7 (1.2-4.9) X10*3/uL Garden # (Auto) 0.7 (0.1-1.2) X10*3/uL Eos # (Auto) 0.1 (0.0-0.4) X10*3/uL Baso # (Auto) 0.1 (0.0-0.2) X10*3/uL Abs Immat Gran (auto) 0.06 H (0.00-0.03) X10*3/uL Absolute Neuts (auto) 7.0 (2.0-8.3) x10*3/uL Absolute Nucleated RBC 0.000 (0.0-0.012) X10*3/uL Nucleated RBC % (auto) 0.0 (0.0-0.2) /100WBC Sodium 139 (135-145) mmol/L Potassium 3.1 L D (3.3-5.1) mmol/L Chloride 103 (96-108) mmol/L Carbon Dioxide 25 (22-29) mmol/L Anion Gap 14 (12-20) BUN 10 (9-16) mg/dL Creatinine 1.23 (0.5-1.4) mg/dL Estim Creat Clear Calc 80.8 Estimated GFR > 60 Random Glucose 166 H (60-115) mg/dL Calcium 9.6 D (8.4-10.2) mg/dL Magnesium 1.9 (1.6-2.6) mg/dL Total Bilirubin 1.6 H (0.0-1.0) mg/dL Direct Bilirubin 0.6 H (0.0-0.5) mg/dL AST 15 (5-37) U/L ALT 23 (0-40) U/L Alkaline Phosphatase 156 H (39-117) U/L Troponin I High Sens (<3.5-35.0) ng/L B-Natriuretic Peptide (<100) pg/mL Total Protein 6.9 (6.5-8.0) g/dL Albumin 4.2 (3.5-5.0) g/dL Lipase 9 (8-78) U/L Ethyl Alcohol 34 mg/dL COVID-19 (YADIRA) (Negative) COVID-19 Clin Com 10/12/21 10/12/21 10/12/21 Range/Units 11:34 11:34 11:34 WBC (4.8-10.8) X10*3/uL RBC (4.60-5.80) X10*6/uL Hgb (14.0-18.0) g/dl Hct (42.0-52.0) % MCV (80.0-98.0) fL MCH (27.0-33.0) pg MCHC (31.0-36.0) g/dl RDW (11.0-16.0) % Plt Count (160-400) X10*3/uL MPV (9.4-12.4) fL Immature Gran % (Auto) (0.0-0.4) % Neut % (Auto) (45-73) % Lymph % (Auto) (20-40) % Garden % (Auto) (2-11) % Eos % (Auto) (0-4) % Baso % (Auto) (0-2) % Lymph # (Auto) (1.2-4.9) X10*3/uL Garden # (Auto) (0.1-1.2) X10*3/uL Eos # (Auto) (0.0-0.4) X10*3/uL Baso # (Auto) (0.0-0.2) X10*3/uL Abs Immat Gran (auto) (0.00-0.03) X10*3/uL Absolute Neuts (auto) (2.0-8.3) x10*3/uL Absolute Nucleated RBC (0.0-0.012) X10*3/uL Nucleated RBC % (auto) (0.0-0.2) /100WBC Sodium (135-145) mmol/L Potassium (3.3-5.1) mmol/L Chloride (96-108) mmol/L Carbon Dioxide (22-29) mmol/L Anion Gap (12-20) BUN (9-16) mg/dL Creatinine (0.5-1.4) mg/dL Estim Creat Clear Calc Estimated GFR Random Glucose (60-115) mg/dL Calcium (8.4-10.2) mg/dL Magnesium (1.6-2.6) mg/dL Total Bilirubin (0.0-1.0) mg/dL Direct Bilirubin (0.0-0.5) mg/dL AST (5-37) U/L ALT (0-40) U/L Alkaline Phosphatase (39-117) U/L Troponin I High Sens < 3.5 (<3.5-35.0) ng/L B-Natriuretic Peptide 17 (<100) pg/mL Total Protein (6.5-8.0) g/dL Albumin (3.5-5.0) g/dL Lipase (8-78) U/L Ethyl Alcohol mg/dL COVID-19 (YADIRA) Negative (Negative) COVID-19 Clin Com See Note 10/12/21 Range/Units 14:56 WBC (4.8-10.8) X10*3/uL RBC (4.60-5.80) X10*6/uL Hgb (14.0-18.0) g/dl Hct (42.0-52.0) % MCV (80.0-98.0) fL MCH (27.0-33.0) pg MCHC (31.0-36.0) g/dl RDW (11.0-16.0) % Plt Count (160-400) X10*3/uL MPV (9.4-12.4) fL Immature Gran % (Auto) (0.0-0.4) % Neut % (Auto) (45-73) % Lymph % (Auto) (20-40) % Garden % (Auto) (2-11) % Eos % (Auto) (0-4) % Baso % (Auto) (0-2) % Lymph # (Auto) (1.2-4.9) X10*3/uL Garden # (Auto) (0.1-1.2) X10*3/uL Eos # (Auto) (0.0-0.4) X10*3/uL Baso # (Auto) (0.0-0.2) X10*3/uL Abs Immat Gran (auto) (0.00-0.03) X10*3/uL Absolute Neuts (auto) (2.0-8.3) x10*3/uL Absolute Nucleated RBC (0.0-0.012) X10*3/uL Nucleated RBC % (auto) (0.0-0.2) /100WBC Sodium (135-145) mmol/L Potassium (3.3-5.1) mmol/L Chloride (96-108) mmol/L Carbon Dioxide (22-29) mmol/L Anion Gap (12-20) BUN (9-16) mg/dL Creatinine (0.5-1.4) mg/dL Estim Creat Clear Calc Estimated GFR Random Glucose (60-115) mg/dL Calcium (8.4-10.2) mg/dL Magnesium (1.6-2.6) mg/dL Total Bilirubin (0.0-1.0) mg/dL Direct Bilirubin (0.0-0.5) mg/dL AST (5-37) U/L ALT (0-40) U/L Alkaline Phosphatase (39-117) U/L Troponin I High Sens < 3.5 (<3.5-35.0) ng/L B-Natriuretic Peptide (<100) pg/mL Total Protein (6.5-8.0) g/dL Albumin (3.5-5.0) g/dL Lipase (8-78) U/L Ethyl Alcohol mg/dL COVID-19 (YADIRA) (Negative) COVID-19 Clin Com ECG Data ECG #1: Attestation: I personally reviewed and interpreted this ECG as follows: ECG interpretation date: 10/12/21 ECG interpretation time: 11:16 Prior ECG tracings: available for review Interpretation: EKG sinus tachycardia at a rate of 109. MS interval 158. QTC 436. T-wave inversion now evident in inferior leads. Nonspecific T-wave in anterior leads when compared to prior EKGs Discharge Plan Discharge Clinical Impression: Acute dyspnea, Proctitis, ETOH abuse, Cocaine abuse Patient Disposition: Still a Patient Instructions: Cocaine Abuse (ED), Abuse of Alcohol (DC), Dyspnea (ED) Additional Instructions: your potassium was slightly low today in the emergency department, we repleted it. Your CT scan shows nonspecific inflammation around your rectum, Bactrim is an antibiotic which will help treat this take as prescribed. You need to follow-up with urology in pertains to this, this could be proctitis. If you developed rectal pain/bleeding, discomfort when you urinate, penile discharge please return to the emergency department Your other blood work was reassuring. Her x-ray was unremarkable. Please avoid alcohol and drug use. 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 If her symptoms persist or worsen please return to the emergency department Prescriptions: New sulfamethoxazole-trimethoprim [Bactrim DS] 800-160 mg tablet 1 tab PO Q12H 7 Days Qty: 14 0RF No Action furosemide 40 mg tablet 1 tab PO DAILY 0RF bupropion HCl 150 mg tablet sustained-release 12 hr 1 tab PO QAM 0RF clonidine HCl 0.1 mg tablet 1 tab PO BID 0RF spironolactone 25 mg tablet 1 tab PO DAILY 0RF tamsulosin 0.4 mg capsule 2 cap PO DAILY 0RF omeprazole 20 mg capsule,delayed release(DR/EC) 1 cap PO DAILY 0RF paroxetine HCl 40 mg tablet 1 tab PO QAM 0RF aripiprazole 5 mg tablet 1 tab PO DAILY 0RF bupropion HCl 300 mg tablet extended release 24 hr 1 tab PO QAM 0RF buprenorphine-naloxone [Suboxone] 8-2 mg film 2 strip sublingual DAILY 0RF Trelegy Ellipta 200-62.5-25 mcg blister with device 1 puff inhalation DAILY 0RF atorvastatin 40 mg tablet 1 tab PO BEDTIME 0RF finasteride 5 mg tablet 1 tab PO DAILY 0RF Basaglar KwikPen U-100 Insulin 100 unit/mL (3 mL) insulin pen 40 unit subcut BEDTIME 0RF albuterol sulfate [ProAir HFA] 90 mcg/actuation HFA aerosol inhaler 1 inh inhalation QID PRN (Reason: shortness of breath or wheezing) Qty: 8.5 0RF hydroxyzine HCl 25 mg tablet PO 0RF folic acid 1 mg tablet 1 mg PO DAILY 0RF (DME) FreeStyle Lite Strips Strip See Rx Instructions ea Not Applicable TID Qty: 10 0RF Rx Instructions: As directed docusate sodium 100 mg capsule 100 mg PO BID PRN (Reason: constipation) 0RF (DME) lancets [Ultra-Care Lancets] 30 gauge misc See Rx Instructions ea .ROUTE TID Qty: 100 0RF Rx Instructions: As directed (DME) BD AutoShield Duo Pen Needle 30 gauge x 3/16 needle See Rx Instructions ea .ROUTE .MEDSUPPLY Qty: 100 0RF Rx Instructions: As directed ibuprofen 600 mg tablet 600 mg PO Q8H PRN (Reason: pain) 0RF Referrals: Willis Parra MD [Physician] - 2 days Saúl Hill MD [Physician] - 3 days Physician,Cecil J [Primary Care Provider] - 2 days (your PCP)
[2021-10-12 11:58] LABS: Ethanol 34 mg/dL
[2021-10-12 11:59] LABS: COVID-19 Test Negative (Negative)
[2021-10-12 12:00] LABS: Alanine Aminotransferase 23 U/L (0-40); Albumin Level 4.2 g/dL (3.5-5.0); Alkaline Phosphatase 156 U/L (39-117); Anion Gap 14 (12-20); Aspartate Amino Transferase 15 U/L (5-37); Bilirubin Direct 0.6 mg/dL (0.0-0.5); Bilirubin Total 1.6 mg/dL (0.0-1.0); Blood Urea Nitrogen 10 mg/dL (9-16); Calcium 9.6 mg/dL (8.4-10.2); Carbon Dioxide 25 mmol/L (22-29); Chloride 103 mmol/L (96-108); Creatinine Clr Calc Pharmacy 80.8; Estimated Glomerular Filt Rate > 60; Glucose Random 166 mg/dL (60-115); Lipase 9 U/L (8-78); Magnesium 1.9 mg/dL (1.6-2.6); Potassium 3.1 mmol/L (3.3-5.1); Sodium 139 mmol/L (135-145); Total Protein 6.9 g/dL (6.5-8.0)
[2021-10-12 12:03] LABS: B Type Natriuretic Peptide 17 pg/mL (<100)
[2021-10-12 12:04] LABS: Troponin-I High Sensitivity < 3.5 ng/L (<3.5-35.0)
[2021-10-12] MEDS: iohexoL 350 MG/ML 100 ML INFUS..BTL IV (12:28)
[2021-10-12] MEDS: Potassium Chloride Packet 20 MEQ PACKET 60 MEQ PO (12:53)
[2021-10-12] MEDS: chlordiazePOXIDE HCl 25 MG CAPSULE 50 MG PO (14:20)
--- NOTE | 2021-10-12 14:23 | PC.NURSE ---
ot a&ox3, had bowel movement in bed, reported diarrhea, pt changed, ambulated independently. medicated per provider order.
[2021-10-12 15:25] LABS: Troponin-I High Sensitivity < 3.5 ng/L (<3.5-35.0)
--- NOTE | 2021-10-12 15:57 | PC.NURSE ---
ambulated pt around room, maintained O2 between 95-98%, provider aware.
--- NOTE | 2021-10-12 16:23 | MHC.RECOVSUP ---
Recovery Support note: Patient is a 56 year old Azerbaijani speaking male who presented to [facility] ED due to chest pain and shortness of breath. This telegraphic typewriter repairer met with patient to discuss alcohol use and treatment options. Patient reports relapsing 5 days ago and states he has drank about 40 nips of fireball each day. Patient reports prior to this he was sober for around one year. Patient is expressing interest in going to detox. Patient is medically cleared at this time. Patient has been referred to [facility] ( ) and [facility] ([phone] ex [phone]). This telegraphic typewriter repairer awaits follow up from these facilities.
--- NOTE | 2021-10-12 17:02 | PC.NURSE ---
pt a&ox3, vss, sinus tach, CIWA = 0, medicated per provider order.
[2021-10-12] MEDS: Sulfamethox/Trimeth 800/160 TABLET 1 TAB PO (17:04)
--- NOTE | 2021-10-12 17:52 | MHC.RECOVSUP ---
Recovery Support note: Philip at [facility] reports patient has been approved medically. They are unable to admit patient at this time, however report high likelihood that patient will be admitted tomorrow. Patient needs to complete intake with [facility] tonight or tomorrow morning. Discussed case with patient's ED provider, plan for patient to remain in the ED until tomorrow.
--- NOTE | 2021-10-12 20:06 | PC.NURSE ---
patient a&o, watching tv, pt sinus tach on manager monitoring 99-102, vss, pt requesting food, will continue to monitor.
--- NOTE | 2021-10-12 22:46 | PHA.MEDREC ---
med rec complete, patient has not had his medications for a couple of days Pharmacy Consult ? Medication Reconciliation Pharmacy has completed the medication reconciliation.
[2021-10-13] VITALS (7 sets, daily range): BP systolic 142–164; BP diastolic 92–115; PULSE 95–111; RESP 12–18; TEMP 36.7–36.9; O2SAT 96–99
[2021-10-13 05:56] LABS: Appearance Urine CLEAR; Color Urine YELLOW; Glucose Urine UA NEG (NEG); Leukocyte Esterase Urine NEG (NEG); Nitrite Urine NEG (NEG); PH 6.5 (5.0-8.0); Urine Blood NEG (NEG); Urine Ketones NEG (NEG); Urine Protein TRACE MG/DL (NEG-TRACE)
[2021-10-13 06:05] LABS: Amphetamine Screen Urine Not Detected (Not Detect); Barbiturates, Urine Not Detected (Not Detect); Benzodiazepines Screen Urine POSITIVE (Not Detect); Cannabinoid Screen Urine POSITIVE (Not Detect); Cocaine Screen Urine POSITIVE (Not Detect); Fentanyl, urine Not Detected (Not Detect); Opiate Screen Urine Not Detected (Not Detect); Phencyclidine Screen Urine Not Detected (Not Detect)
--- NOTE | 2021-10-13 08:05 | PC.NURSE ---
sleeping. nsr in 90's on monitor. skin pwd.
[2021-10-13 08:45] LABS: CT PCR NOT DETECTED (Not Detect.); NG PCR NOT DETECTED (Not Detect.)
--- NOTE | 2021-10-13 10:22 | PC.NURSE ---
has been on phone with intake for ad care. they plan to call back with details for transfer. pt requesting meds for withdrawal.
[2021-10-13] MEDS: LORazepam 1 MG TABLET 2 MG PO (11:04)
--- NOTE | 2021-10-13 16:43 | PC.NURSE ---
up to br. slow but steady on feet. c/o dizziness.
--- NOTE | 2021-10-13 19:46 | PC.NURSE ---
VS obtained CIAK - 13 Dr. Amanda brumfield.
[2021-10-13] MEDS: Furosemide 40 MG TABLET PO (19:59)
[2021-10-13] MEDS: Spironolactone 25 MG TABLET PO (19:59)
--- NOTE | 2021-10-13 20:03 | MHC.CARE ---
CARE team met with pt. Pt reports he is homeless and has been drinking and smoking crack for the last 8 days. Pt states that he is interested in detox, specifically [facility] because he has complex medical issues and only facility that would accept him. Pt reports that he has a TBI and has went to [facility] previously. Pt states that he is concerned that he may go into withdrawals and reports that he feels that he is starting to. Pt was informed that if bed placement is not secured by tomorrow he can no longer stay here. Pt agrees to this and Dr. Tracy also agrees. CARE team called [facility] they have no beds today, will likely have one tomorrow and pt is on the waitling list.
[2021-10-13] MEDS: LORazepam 2 MG/ML VIAL IVPUSH (22:30)
[2021-10-13] MEDS: Atorvastatin Calcium 40 MG TABLET PO (22:30)
[2021-10-13] MEDS: cloNIDine HCL 0.1 MG TABLET PO (22:30)
[2021-10-13] MEDS: Insulin Glargine,Hum.rec.anlog 100 UNIT/ML 10 ML VIAL 40 UNIT SUBCUT (22:31)
--- NOTE | 2021-10-13 23:49 | PC.NURSE ---
pt denies any complaints at this time. Pt alert, respirations easy, n/l.
--- NOTE | 2021-10-14 01:20 | PC.NURSE ---
pt denies any complaints. pt alert, respirations easy, n/l. skin w/d. will continue to monitor pt.
[2021-10-14 02:00] VITALS: BP 145/112; PULSE 98; RESP 11; TEMP 36.7; O2SAT 97
--- NOTE | 2021-10-14 06:17 | PC.NURSE ---
pt alert, respirations easy, n/l. skin w/d. pt denies nausea/vomiting. pt remains on monitor with hr 96. will continue to monitor pt.
[2021-10-14] MEDS: Omeprazole 20 MG CAPSULE.DR PO (06:41)
[2021-10-14 08:50] VITALS: BP 132/99; PULSE 107; RESP 20; TEMP 36.8; O2SAT 97
[2021-10-14] MEDS: PARoxetine HCL 40 MG TABLET PO (08:53)
[2021-10-14] MEDS: buPROPion HCl XL 150 MG TAB.ER.24H PO (08:54)
[2021-10-14] MEDS: Spironolactone 25 MG TABLET PO (08:54)
[2021-10-14] MEDS: Folic Acid 1 MG TABLET PO (08:54)
[2021-10-14] MEDS: Furosemide 40 MG TABLET PO (08:54)
[2021-10-14] MEDS: Finasteride 5 MG TABLET PO (08:54)
[2021-10-14] MEDS: buPROPion HCl XL 300 MG TAB.ER.24H PO (08:54)
[2021-10-14] MEDS: Buprenorphine/Naloxone 8/2 mg FILM 2 FILM SUBLINGUAL (08:54)
[2021-10-14] MEDS: cloNIDine HCL 0.1 MG TABLET PO ×2 (08:54→14:02)
[2021-10-14] MEDS: Fluticasone/Vilanterol 100/25 BLST.W.DEV 1 PUFF INHALE (08:55)
[2021-10-14] MEDS: Tamsulosin HCL 0.4 MG CAPSULE 0.8 MG PO (08:55)
--- NOTE | 2021-10-14 09:39 | MHC.CARE ---
[facility] [phone]
--- NOTE | 2021-10-14 11:42 | ECG_ITS ---
Test Reason : REPEAT GENERAL Blood Pressure : / mmHG Vent. Rate : 112 BPM Atrial Rate : 112 BPM P-R Int : 154 ms QRS Dur : 084 ms QT Int : 334 ms P-R-T Axes : 026 020 022 degrees QTc Int : 455 ms Sinus tachycardia Nonspecific ST abnormality Abnormal ECG When compared with ECG of 12-OCT-2021 11:16, T wave inversion no longer evident in Inferior leads Referred By: Abiola Kennedy Electronically Signed By:Yoni Treadwell
[2021-10-14 13:59] VITALS: BP 141/82; PULSE 119; RESP 16
[2021-10-14] MEDS: LORazepam 1 MG TABLET 2 MG PO ×2 (14:01→16:53)
--- NOTE | 2021-10-14 15:20 | MHC.CARE ---
[facility] has a bed available for patient today pending N-N, has to go by ambulance. Robbie [phone]
[2021-10-14 16:42] VITALS: BP 122/85; PULSE 121; RESP 16; TEMP 37.1; O2SAT 97
[2021-10-14] MEDS: Sulfamethox/Trimeth 800/160 TABLET 1 TAB PO (16:46)
== END 2021-10-14 17:36 | disposition other institution (70) ==
PROVIDERS: Physician Assistant; Emergency Provider Emergency Medicine
DX: F10.10 Alcohol abuse, uncomplicated (principal); Y90.1 Blood alcohol level of 20-39 mg/100 ml; F14.10 Cocaine abuse, uncomplicated; R06.00 Dyspnea, unspecified; K62.89 Other specified diseases of anus and rectum; R07.9 Chest pain, unspecified; R06.02 Shortness of breath; R00.0 Tachycardia, unspecified; R51.9 Headache, unspecified; Z20.822 Contact with and (suspected) exposure to COVID-19; E11.9 Type 2 diabetes mellitus without complications; I11.0 Hypertensive heart disease with heart failure; I50.9 Heart failure, unspecified; F11.20 Opioid dependence, uncomplicated; K74.60 Unspecified cirrhosis of liver; F17.200 Nicotine dependence, unspecified, uncomplicated; J44.9 Chronic obstructive pulmonary disease, unspecified; Z99.81 Dependence on supplemental oxygen; Z87.820 Personal history of traumatic brain injury; Z79.4 Long term (current) use of insulin; Z79.02 Long term (current) use of antithrombotics/antiplatelets
CPT/HCPCS: 36415; 71045; 74177; 80048; 80076; 80307; 81003; 82077; 83690; 83735; 83880; 84484; 85025; 87491; 87591; 87635; 93005; 96361; 96374; 96375; 99285; J2060; Q9967

== ENCOUNTER 2021-11-23 10:50 | Emergency (ER) | payer MEDICARE, MEDICAID, SELFPAY ==
--- NOTE | ~2021-11-23 | XR_ITS ---
EXAMINATION: XR CHEST CLINICAL INFORMATION: SOB COMPARISON: Chest 10/12/2021 TECHNIQUE: Frontal view of the chest was obtained. FINDINGS: No significant abnormality is noted involving the heart, lungs, mediastinum, bony thorax or soft tissues. XR/XR chest 1V IMPRESSION: Unremarkable chest examination.
--- NOTE | ~2021-11-23 | CT_ITS ---
EXAMINATION: CT ABDOMEN AND PELVIS WITH CONTRAST CLINICAL INFORMATION: Abdominal pain COMPARISON: CT scan abdomen pelvis 10/12/2021 TECHNIQUE: Multidetector volumetric images were obtained from the superior aspect of the liver through the pubic symphysis following administration 100 mL of Omnipaque 350 intravenous contrast. Sagittal and coronal reformatted images were obtained on the technologist's workstation. Oral contrast: No This CT examination was performed using dose optimization techniques as appropriate, variously including the following: *Automated exposure control *Adjustment of mA and/or kV according to patient size (this includes techniques or standardized protocols for targeted exams where dose is matched to indication/reason for exam; i.e. extremities or head) *Use of iterative reconstruction technique DLP: 1068 mGy-cm FINDINGS: LUNG BASES: The visualized lung bases are unremarkable. LIVER, GALLBLADDER, AND BILIARY TREE: Hepatomegaly. Liver measures 25 cm in length. Lobular contour of liver consistent with cirrhosis. Mild diffuse low attenuation of liver parenchyma. No focal liver lesion or intrahepatic bile duct dilatation. Status post cholecystectomy. PANCREAS: Unremarkable. SPLEEN: Splenomegaly. Spleen measures 17 cm AP. ADRENAL GLANDS: Unremarkable. KIDNEYS AND URETERS: 2 mm nonobstructive stone in the mid upper pole of right kidney. This is unchanged since prior CAT scan. No stone in the left kidney. There is no hydronephrosis. No ureteral calculi. Kidneys are of normal size and contour with normal cortical thickness and normal enhancement of the kidneys. BLADDER: Unremarkable. GASTROINTESTINAL TRACT: There are scattered diverticula of the sigmoid and left colon. There is no diverticulitis. There is no bowel wall thickening /edema. There is no bowel obstruction. There is a moderate volume of stool in the colon. The appendix is normal . The small bowel loops are unremarkable. The stomach is normal. There is no hiatal hernia. ABDOMINAL WALL: No significant hernia is appreciated. MESENTERY: There is no ascites. No focal inflammation. No free air. No mesenteric mass. LYMPH NODES: Normal. VASCULAR: Atherosclerotic vascular calcifications of aorta and iliac arteries. There is no aneurysm. PELVIC VISCERA: Calcifications of the prostate. Prostate measures 2.5 cm transverse. OSSEOUS STRUCTURES: Multilevel degenerative spondylosis. Stable compression deformity of the T9, T11, T12, L1 and L2 vertebrae. Marked degenerative joint disease of hips bilateral. CT/CT abdomen pelvis w con IMPRESSION: There is no acute abnormality of the abdomen or the pelvis. Hepatomegaly. Cirrhosis of liver. Splenomegaly. Status post Cholecystectomy. Diverticulosis of colon. No acute abnormality of the bowel. Small stone right kidney. Fleischner guidelines were followed.
[2021-11-23 11:00] VITALS: BP 160/90; PULSE 80; O2SAT 99
[2021-11-23 11:01] VITALS: BP 166/106; PULSE 86; RESP 18; TEMP 36.1; O2SAT 96; BMI 35.9
--- NOTE | 2021-11-23 11:18 | ECG_ITS ---
Test Reason : PAIN Blood Pressure : / mmHG Vent. Rate : 089 BPM Atrial Rate : 089 BPM P-R Int : 172 ms QRS Dur : 082 ms QT Int : 372 ms P-R-T Axes : 034 006 014 degrees QTc Int : 452 ms Normal sinus rhythm Normal ECG When compared with ECG of 14-OCT-2021 12:34, Nonspecific T wave abnormality no longer evident in Anterior leads Referred By: Gianni Patel Electronically Signed By:Yoni Treadwell
--- NOTE | 2021-11-23 11:22 | ED.ABDPAIN ---
HPI - Abdominal Pain General Chief Complaint: Abdominal Pain Stated Complaint: N/V/D Time Seen by Provider: 11/23/21 11:06 Source: patient and old records reviewed History of Present Illness HPI narrative: Patient states she has had approximately 8 hours of abdominal pain with associated nausea vomiting and diarrhea. States he has had multiple episodes of both vomiting and diarrhea. The diarrhea is watery and yellow. Vomitus is yellow as well. He denies any hematemesis, hematochezia, melena. He does not know if he has been exposed to anybody like this. He states he has not been taking his medications for the past weeks as he is homeless. He has a history significant for diabetes, CHF, COPD, and hypertension. The pain does not radiate No urinary symptoms Patient also has a history of alcohol use disorder. He was seen in this ER in early October of this year and went to inpatient detox from there. He states he has been drinking again but this time only about 2-3 naps per day. He states he does not feel like he is withdrawing at this time. His last was 2-3 days ago. Positive chills. No documented fevers. No alleviating or exacerbating factors He does complain of shortness of breath which has been constant since his last visit here. He states this is due to his COPD. Related Data Home Medications Medication Instructions Recorded Confirmed buprenorphine 8 mg-naloxone 2 mg 2 strip SUBLINGUAL DAILY 01/21/21 10/12/21 sublingual film (Suboxone) bupropion HCl 300 mg 24 hr tablet, 1 tab PO DAILY 01/21/21 10/12/21 extended release clonidine HCl 0.1 mg tablet 1 tab PO BID 01/21/21 10/12/21 fluticasone fur. 200 mcg-umeclid 1 puff INHALATION DAILY 01/21/21 10/12/21 62.5 mcg-vilant 25 mcg inhalat.powder (Trelegy Ellipta) furosemide 40 mg tablet 1 tab PO DAILY 01/21/21 10/12/21 omeprazole 20 mg capsule,delayed 1 cap PO DAILY 01/21/21 10/12/21 release paroxetine HCl 40 mg tablet 1 tab PO DAILY 01/21/21 10/12/21 spironolactone 25 mg tablet 1 tab PO DAILY 01/21/21 10/12/21 tamsulosin 0.4 mg capsule 2 cap PO DAILY 01/21/21 10/12/21 atorvastatin 40 mg tablet 1 tab PO BEDTIME 05/14/21 10/12/21 finasteride 5 mg tablet 1 tab PO DAILY 05/14/21 10/12/21 insulin glargine 100 unit/mL (3 40 unit SUBCUT BEDTIME 05/14/21 10/12/21 mL) subcutaneous pen (Basaglar KwikPen U-100 Insulin) blood sugar diagnostic (FreeStyle #10 ea 09/08/21 09/08/21 Lite Strips) docusate sodium 100 mg capsule 100 mg PO BID PRN 09/08/21 10/12/21 folic acid 1 mg tablet 1 mg PO DAILY 09/08/21 10/12/21 hydroxyzine HCl 25 mg tablet 25 mg PO Q4H PRN 09/08/21 10/12/21 lancets 30 gauge (Ultra-Care #100 ea 09/08/21 09/08/21 Lancets) pen needle,diabetic dual safty 30 #100 ea 09/08/21 09/08/21 gauge x 3/16 (BD AutoShield Duo Pen Needle) bupropion HCl 150 mg tablet,12 hr 1 tab PO DAILY 10/12/21 10/12/21 sustained-release ibuprofen 800 mg tablet 800 mg PO BID PRN 10/12/21 10/12/21 Previous Rx's Medication Instructions Recorded albuterol sulfate 90 mcg/actuation 1 inh INHALATION QID PRN #8.5 g 05/19/21 aerosol inhaler (ProAir HFA) sulfamethoxazole 800 1 tab PO Q12H 7 Days #14 tab 10/12/21 mg-trimethoprim 160 mg tablet (Bactrim DS) insulin glargine 100 unit/mL 40 unit (0.4 mL) SUBCUT BEDTIME 11/23/21 subcutaneous solution #10 ml ondansetron 4 mg disintegrating 4 mg PO Q8H PRN #14 tab 11/23/21 tablet Allergies Allergy/AdvReac Type Severity Reaction Status Date / Time No Known Allergies Allergy Verified 10/12/21 10:58 [No Known Allergies*] Review of Systems Comments: Chills without documented fever Comments: No chest pain Comments: Chronic dyspnea Comments: Abdominal pain with nausea vomiting and diarrhea. Comments: No dysuria Comments: No trauma Comments: No rash Comments: No focal weakness complaints Comments: Insulin-dependent diabetes [facility] Past Medical History Medical History Acute interstitial pneumonitis Anxiety ARDS (adult respiratory distress syndrome) ARDS (adult respiratory distress syndrome) CHF (congestive heart failure) Cocaine abuse Community acquired pneumonia COPD (chronic obstructive pulmonary disease) COPD (chronic obstructive pulmonary disease) COPD exacerbation COPD exacerbation ETOH abuse Hypertension Hypoxia ILD (interstitial lung disease) Interstitial lung disease Liver cirrhosis Obesity (BMI 35.0-39.9 without comorbidity) Obesity (BMI 35.0-39.9 without comorbidity) KATHYA (obstructive sleep apnea) KATHYA (obstructive sleep apnea) Pneumonia Pneumonia Pneumonitis Sepsis Smoker TBI (traumatic brain injury) Surgical History H/O brain surgery No significant past surgical history Family History Family History Other Lymphoma Social History Social History Household Members: None Housing: Apartment Housing Other:: Sober House Do you presently have visiting nurse or other home services: No Alcohol intake: current Alcohol intake frequency: 3 or more drinks per day Alcohol type: hard liquor Patient Tobacco Use Status: Never used Tobacco Tobacco use type: Cigarette Cigarette Packs Per Day: 0.5 Cigarettes Per Day: 7 Second Hand Smoke Exposure: Yes Substance Use Type: Crack/Cocaine Advance Directives: Yes Advance Directives on File: Yes Advance Directives Date on File: 05/20/21 service: No Current occupational status: unemployed and disabled Physical Exam ED Vital Signs: Vital Signs - 24 hr 11/23/21 11:01 Temperature 97 F Pulse Rate 86 Respiratory Rate 18 Blood Pressure 166/106 H Pulse Oximetry 96 BMI result Body Mass Index 35.9 Const Other: Awake and alert. Appears mildly uncomfortable HENMT Other: Normocephalic atraumatic. Mucosa dry Chest Other: Chest wall nontender. He has residue consistent with recent monitor pads. He states he has a TBI and does not recall when he was seen and placed on a monitor or wear. Resp Other: Mild dyspnea. Breath sounds are clear but diminished bilaterally. No wheezes rales or rhonchi Cardio Other: Regular rate and rhythm without murmurs rubs or gallops GI Other: Soft nondistended. Bowel sounds normal. He is diffusely tender without guarding or rebound. No focal points of maximum tenderness. No masses. Skin Other: Warm pink and dry with moderate residue as noted above. No obvious rash Neuro Other: Grossly Nonfocal neuro exam Extrem Other: No significant pedal edema Course Course Course Narrative: Abdominal pain with nausea vomiting and diarrhea Gastroenteritis Pancreatitis Hepatitis Ischemic Tsang Diabetic ketoacidosis Hyperglycemia Dehydration COPD CHF exacerbation less likely as patient clinically appears dehydrated Patient appears dehydrated despite CHF history. Will hydrate with normal saline. IV Zofran IV ketorolac Will wait for creatinine before ordering abdominal CT scan. Ideally I would like to order with IV contrast 14:21. CBC is normal without elevated white count. Creatinine is 0.8. Acetone is negative. Glucose is 165. Await CT scan results Patient still complaining of pain after treatment with Zofran, ketorolac, and droperidol. He states the droperidol did help him temporarily. 16:27. Will order another dose of droperidol. Patient is feeling considerably improved but not back to baseline. Workup is reassuring including blood work and CT scan. Will attempt a p.o. trial. Patient able to drink without difficulty. Initially requesting social service consult for housing placement but then stated he thinks he needs going to detox. Detox bed is apparently available. Will treat with his daily insulin dose and discharge to detox with a prescription for more insulin. MDM - Abdominal Pain Lab Data Result diagrams: 11/23/21 12:39 11/23/21 12:38 Labs: Lab Results 11/23/21 11/23/21 11/23/21 Range/Units 12:38 12:38 12:39 WBC 4.6 L (4.8-10.8) X10*3/uL RBC 4.13 L (4.60-5.80) X10*6/uL Hgb 12.5 L (14.0-18.0) g/dl Hct 37.2 L (42.0-52.0) % MCV 90.1 (80.0-98.0) fL MCH 30.3 (27.0-33.0) pg MCHC 33.6 (31.0-36.0) g/dl RDW 14.9 (11.0-16.0) % Plt Count 98 L (160-400) X10*3/uL MPV 9.5 (9.4-12.4) fL Immature Gran % (Auto) 0.4 (0.0-0.4) % Neut % (Auto) 84.1 H (45-73) % Lymph % (Auto) 10.7 L (20-40) % Wythe % (Auto) 4.4 (2-11) % Eos % (Auto) 0.2 (0-4) % Baso % (Auto) 0.2 (0-2) % Lymph # (Auto) 0.5 L (1.2-4.9) X10*3/uL Wythe # (Auto) 0.2 (0.1-1.2) X10*3/uL Eos # (Auto) 0.0 (0.0-0.4) X10*3/uL Baso # (Auto) 0.0 (0.0-0.2) X10*3/uL Abs Immat Gran (auto) 0.02 (0.00-0.03) X10*3/uL Absolute Neuts (auto) 3.8 (2.0-8.3) x10*3/uL Absolute Nucleated RBC 0.000 (0.0-0.012) X10*3/uL Nucleated RBC % (auto) 0.0 (0.0-0.2) /100WBC Sodium 137 (135-145) mmol/L Potassium 3.4 (3.3-5.1) mmol/L Chloride 104 (96-108) mmol/L Carbon Dioxide 24 (22-29) mmol/L Anion Gap 12 (12-20) BUN 7 L (9-16) mg/dL Creatinine 0.80 (0.5-1.4) mg/dL Estim Creat Clear Calc 126.9 Estimated GFR > 60 Random Glucose 175 H (60-115) mg/dL Lactic Acid (0.5-2.0) mmol/L Calcium 8.7 D (8.4-10.2) mg/dL Total Bilirubin 1.8 H (0.0-1.0) mg/dL AST 23 D (5-37) U/L ALT 19 (0-40) U/L Alkaline Phosphatase 132 H (39-117) U/L Ammonia (13-55) umol/L Troponin I High Sens (<3.5-35.0) ng/L B-Natriuretic Peptide (<100) pg/mL Total Protein 6.0 L (6.5-8.0) g/dL Albumin 3.6 (3.5-5.0) g/dL Lipase 12 (8-78) U/L Ethyl Alcohol mg/dL Acetone, Qual Negative (Negative) COVID-19 (YADIRA) (Negative) COVID-19 Clin Com 11/23/21 11/23/21 11/23/21 Range/Units 12:39 12:39 12:39 WBC (4.8-10.8) X10*3/uL RBC (4.60-5.80) X10*6/uL Hgb (14.0-18.0) g/dl Hct (42.0-52.0) % MCV (80.0-98.0) fL MCH (27.0-33.0) pg MCHC (31.0-36.0) g/dl RDW (11.0-16.0) % Plt Count (160-400) X10*3/uL MPV (9.4-12.4) fL Immature Gran % (Auto) (0.0-0.4) % Neut % (Auto) (45-73) % Lymph % (Auto) (20-40) % Wythe % (Auto) (2-11) % Eos % (Auto) (0-4) % Baso % (Auto) (0-2) % Lymph # (Auto) (1.2-4.9) X10*3/uL Wythe # (Auto) (0.1-1.2) X10*3/uL Eos # (Auto) (0.0-0.4) X10*3/uL Baso # (Auto) (0.0-0.2) X10*3/uL Abs Immat Gran (auto) (0.00-0.03) X10*3/uL Absolute Neuts (auto) (2.0-8.3) x10*3/uL Absolute Nucleated RBC (0.0-0.012) X10*3/uL Nucleated RBC % (auto) (0.0-0.2) /100WBC Sodium (135-145) mmol/L Potassium (3.3-5.1) mmol/L Chloride (96-108) mmol/L Carbon Dioxide (22-29) mmol/L Anion Gap (12-20) BUN (9-16) mg/dL Creatinine (0.5-1.4) mg/dL Estim Creat Clear Calc Estimated GFR Random Glucose (60-115) mg/dL Lactic Acid 1.0 (0.5-2.0) mmol/L Calcium (8.4-10.2) mg/dL Total Bilirubin (0.0-1.0) mg/dL AST (5-37) U/L ALT (0-40) U/L Alkaline Phosphatase (39-117) U/L Ammonia (13-55) umol/L Troponin I High Sens 4.6 (<3.5-35.0) ng/L B-Natriuretic Peptide 63 (<100) pg/mL Total Protein (6.5-8.0) g/dL Albumin (3.5-5.0) g/dL Lipase (8-78) U/L Ethyl Alcohol mg/dL Acetone, Qual (Negative) COVID-19 (YADIRA) Negative (Negative) COVID-19 Clin Com See Note 11/23/21 11/23/21 Range/Units 12:39 16:02 WBC (4.8-10.8) X10*3/uL RBC (4.60-5.80) X10*6/uL Hgb (14.0-18.0) g/dl Hct (42.0-52.0) % MCV (80.0-98.0) fL MCH (27.0-33.0) pg MCHC (31.0-36.0) g/dl RDW (11.0-16.0) % Plt Count (160-400) X10*3/uL MPV (9.4-12.4) fL Immature Gran % (Auto) (0.0-0.4) % Neut % (Auto) (45-73) % Lymph % (Auto) (20-40) % Wythe % (Auto) (2-11) % Eos % (Auto) (0-4) % Baso % (Auto) (0-2) % Lymph # (Auto) (1.2-4.9) X10*3/uL Wythe # (Auto) (0.1-1.2) X10*3/uL Eos # (Auto) (0.0-0.4) X10*3/uL Baso # (Auto) (0.0-0.2) X10*3/uL Abs Immat Gran (auto) (0.00-0.03) X10*3/uL Absolute Neuts (auto) (2.0-8.3) x10*3/uL Absolute Nucleated RBC (0.0-0.012) X10*3/uL Nucleated RBC % (auto) (0.0-0.2) /100WBC Sodium (135-145) mmol/L Potassium (3.3-5.1) mmol/L Chloride (96-108) mmol/L Carbon Dioxide (22-29) mmol/L Anion Gap (12-20) BUN (9-16) mg/dL Creatinine (0.5-1.4) mg/dL Estim Creat Clear Calc Estimated GFR Random Glucose (60-115) mg/dL Lactic Acid (0.5-2.0) mmol/L Calcium (8.4-10.2) mg/dL Total Bilirubin (0.0-1.0) mg/dL AST (5-37) U/L ALT (0-40) U/L Alkaline Phosphatase (39-117) U/L Ammonia 32 (13-55) umol/L Troponin I High Sens (<3.5-35.0) ng/L B-Natriuretic Peptide (<100) pg/mL Total Protein (6.5-8.0) g/dL Albumin (3.5-5.0) g/dL Lipase (8-78) U/L Ethyl Alcohol < 10 mg/dL Acetone, Qual (Negative) COVID-19 (YADIRA) (Negative) COVID-19 Clin Com Discharge Plan Discharge Clinical Impression: Gastroenteritis, Diabetes Patient Disposition: Home, Self-Care Instructions: Gastroenteritis (ED) Prescriptions: New ondansetron 4 mg tablet,disintegrating 4 mg PO Q8H PRN (Reason: nausea and vomiting) Qty: 14 0RF insulin glargine 100 unit/mL solution 40 unit subcut BEDTIME Qty: 10 0RF No Action furosemide 40 mg tablet 1 tab PO DAILY 0RF clonidine HCl 0.1 mg tablet 1 tab PO BID 0RF spironolactone 25 mg tablet 1 tab PO DAILY 0RF tamsulosin 0.4 mg capsule 2 cap PO DAILY 0RF omeprazole 20 mg capsule,delayed release(DR/EC) 1 cap PO DAILY 0RF paroxetine HCl 40 mg tablet 1 tab PO DAILY 0RF bupropion HCl 300 mg tablet extended release 24 hr 1 tab PO DAILY 0RF buprenorphine-naloxone [Suboxone] 8-2 mg film 2 strip sublingual DAILY 0RF Trelegy Ellipta 200-62.5-25 mcg blister with device 1 puff inhalation DAILY 0RF atorvastatin 40 mg tablet 1 tab PO BEDTIME 0RF finasteride 5 mg tablet 1 tab PO DAILY 0RF Basaglar KwikPen U-100 Insulin 100 unit/mL (3 mL) insulin pen 40 unit subcut BEDTIME 0RF albuterol sulfate [ProAir HFA] 90 mcg/actuation HFA aerosol inhaler 1 inh inhalation QID PRN (Reason: shortness of breath or wheezing) Qty: 8.5 0RF sulfamethoxazole-trimethoprim [Bactrim DS] 800-160 mg tablet 1 tab PO Q12H 7 Days Qty: 14 0RF ibuprofen 800 mg Tablet 800 mg PO BID PRN (Reason: Pain (Scale Score 4-6)) 0RF bupropion HCl 150 mg tablet sustained-release 12 hr 1 tab PO DAILY 0RF hydroxyzine HCl 25 mg tablet 25 mg PO Q4H PRN (Reason: Anxiety) 0RF folic acid 1 mg tablet 1 mg PO DAILY 0RF (DME) FreeStyle Lite Strips Strip See Rx Instructions ea Not Applicable TID Qty: 10 0RF Rx Instructions: As directed docusate sodium 100 mg capsule 100 mg PO BID PRN (Reason: constipation) 0RF (DME) lancets [Ultra-Care Lancets] 30 gauge misc See Rx Instructions ea .ROUTE TID Qty: 100 0RF Rx Instructions: As directed (DME) BD AutoShield Duo Pen Needle 30 gauge x 3/16 needle See Rx Instructions ea .ROUTE .MEDSUPPLY Qty: 100 0RF Rx Instructions: As directed
[2021-11-23] MEDS: Ketorolac Tromethamine 15 MG/ML VIAL 30 MG IVPUSH (12:02)
[2021-11-23] MEDS: Pantoprazole Sodium 40 MG/10 ML VIAL IVPUSH (12:03)
[2021-11-23] MEDS: ondansetron HCL 4 MG/2 ML VIAL IVPUSH (12:03)
[2021-11-23] MEDS: 0.9 % Sodium Chloride 1,000 ML 999 ML IV ×2 (12:03→15:30)
[2021-11-23 12:47] LABS: MANUAL DIFF FLAG NO
[2021-11-23 13:01] LABS: Acetone, serum QL Negative (Negative)
[2021-11-23 13:03] LABS: Ethanol < 10 mg/dL
[2021-11-23 13:06] LABS: Alanine Aminotransferase 19 U/L (0-40); Albumin Level 3.6 g/dL (3.5-5.0); Alkaline Phosphatase 132 U/L (39-117); Anion Gap 12 (12-20); Aspartate Amino Transferase 23 U/L (5-37); Bilirubin Total 1.8 mg/dL (0.0-1.0); Blood Urea Nitrogen 7 mg/dL (9-16); Calcium 8.7 mg/dL (8.4-10.2); Carbon Dioxide 24 mmol/L (22-29); Chloride 104 mmol/L (96-108); Creatinine Clr Calc Pharmacy 126.9; Estimated Glomerular Filt Rate > 60; Glucose Random 175 mg/dL (60-115); Lipase 12 U/L (8-78); Potassium 3.4 mmol/L (3.3-5.1); Sodium 137 mmol/L (135-145)
[2021-11-23 13:06] LABS: COVID-19 Test Negative (Negative); IDNOW Serial# 16C4AD1C
[2021-11-23 13:11] LABS: Basophils Percent Auto 0.2 % (0-2); Eosinophils Percent Auto 0.2 % (0-4); Hematocrit 37.2 % (42.0-52.0); Hemoglobin 12.5 g/dl (14.0-18.0); Imm Gran Abs Auto 0.02 X10*3/uL (0.00-0.03); Imm Gran Pct Auto 0.4 % (0.0-0.4); Lymphocytes Absolute Auto 0.5 X10*3/uL (1.2-4.9); Lymphocytes Percent Auto 10.7 % (20-40); Mean Corpuscular HGB Conc 33.6 g/dl (31.0-36.0); Mean Corpuscular Hemoglobin 30.3 pg (27.0-33.0); Mean Corpuscular Volume 90.1 fL (80.0-98.0); Mean Platelet Volume 9.5 fL (9.4-12.4); Monocytes Absolute Auto 0.2 X10*3/uL (0.1-1.2); Monocytes Percent Auto 4.4 % (2-11); Neutrophils Absolute Auto 3.8 x10*3/uL (2.0-8.3); Neutrophils Percent Auto 84.1 % (45-73); Platelet Count 98 X10*3/uL (160-400); Red Blood Count 4.13 X10*6/uL (4.60-5.80); Red Cell Distribution Width 14.9 % (11.0-16.0); White Blood Count 4.6 X10*3/uL (4.8-10.8)
[2021-11-23 13:12] LABS: B Type Natriuretic Peptide 63 pg/mL (<100); Troponin-I High Sensitivity 4.6 ng/L (<3.5-35.0)
[2021-11-23] MEDS: iohexoL 350 MG/ML 100 ML INFUS..BTL IV (13:58)
[2021-11-23 16:18] LABS: Ammonia 32 umol/L (13-55)
--- NOTE | 2021-11-23 17:31 | MHC.CM.ED ---
CM met with patient at request of nursing. Pt is medically cleared and does not want to be discharged. Hx ETOH. Hasn't drank for 2 days. Has nausea, vomiting and diarrhea. Pt is interested in Detox at this time. Pt is homeless and has been couch surfing with friends. Was in Detox in Oct. Charge nurse aware. aware. Care team consulted. CM tiger text to [facility] Sanchez will place requests for Detox. CM will follow patient if needed.
--- NOTE | 2021-11-23 17:36 | MHC.RECOVSUP ---
Recovery Support note: Patient is a 56 year old Gabonese speaking male who presented to [facility] ED due to nausea, vomiting and diarrhea. Patient reported to ED staff that he is interested in going to detox. This content writer met with patient to discuss his substance use and treatment options. Patient reports he has been drinking a quart of vodka a day for several weeks and that he experiences withdrawal when he goes a day without drinking. Patient continues to express interest in going to detox. Patient reports he was previously on Suboxone however ran out of the medication over a week ago and has not taken it since. He is interested in restarting this. Patient reports he has not been using opiates. This content writer will assist patient in referring to ATS facilities.
[2021-11-23] MEDS: Insulin Glargine,Hum.rec.anlog 100 UNIT/ML 10 ML VIAL 40 UNIT SUBCUT (20:14)
--- NOTE | 2021-11-23 22:25 | MHC.CARE ---
CARE team supported pt with completing phone intake with [facility], accepted for 11pm admission. This aligner typewriter spoke with ED physician Gianni Patel re: the pt receiving his insulin prior to discharge and sending a script to [facility] that can be picked up tomorrow. Sandie ordered to transport pt to the facility.
== END 2021-11-23 22:37 | disposition home or self-care (01) ==
PROVIDERS: Emergency Provider Emergency Medicine
DX: K52.9 Noninfective gastroenteritis and colitis, unspecified (principal); E11.9 Type 2 diabetes mellitus without complications; R11.2 Nausea with vomiting, unspecified; R06.02 Shortness of breath; Z20.822 Contact with and (suspected) exposure to COVID-19; I11.0 Hypertensive heart disease with heart failure; I50.9 Heart failure, unspecified; F17.200 Nicotine dependence, unspecified, uncomplicated; F10.10 Alcohol abuse, uncomplicated; Y90.0 Blood alcohol level of less than 20 mg/100 ml; F14.10 Cocaine abuse, uncomplicated; F11.20 Opioid dependence, uncomplicated; Z87.820 Personal history of traumatic brain injury; Z79.899 Other long term (current) drug therapy; Z79.4 Long term (current) use of insulin
CPT/HCPCS: 36415; 71045; 74177; 80053; 82009; 82077; 82140; 83605; 83690; 83880; 84484; 85025; 87635; 93005; 96361; 96374; 96375; 96376; 99284; J1790; J1885; J2405; Q9967

== ENCOUNTER 2022-02-10 17:04 | Inpatient (IN) | payer MEDICARE, MEDICAID, SELFPAY ==
--- NOTE | ~2022-02-10 | CT_ITS ---
EXAMINATION: CT ABDOMEN AND PELVIS WITHOUT CONTRAST CLINICAL INFORMATION: Abdominal pain COMPARISON: CT abdomen pelvis 11/23/2021 TECHNIQUE: Multidetector volumetric imaging was performed from the superior aspect of the liver through the pubic symphysis. Sagittal and coronal reformatted images were obtained on the technologist's workstation. This CT examination was performed using dose optimization techniques as appropriate, variously including the following: *Automated exposure control *Adjustment of mA and/or kV according to patient size (this includes techniques or standardized protocols for targeted exams where dose is matched to indication/reason for exam; i.e. extremities or head) *Use of iterative reconstruction technique DLP: 875 mGy-cm FINDINGS: LUNG BASES: The visualized lung bases are unremarkable. LIVER, GALLBLADDER, AND BILIARY TREE: The liver appears cirrhotic with a nodular border and decreased attenuation similar to prior. No focal mass or bile duct dilatation is seen. Status post cholecystectomy.. PANCREAS: Unremarkable. SPLEEN: There is mild splenomegaly with the spleen measuring 13.3 cm in greatest length ADRENAL GLANDS: Unremarkable. KIDNEYS AND URETERS: The kidneys are normal in size, shape, and attenuation. A single tiny punctate calcification is present in the right kidney. No hydronephrosis, hydroureter, or other calculi seen. There is nonspecific bilateral perinephric stranding. BLADDER: Unremarkable. GASTROINTESTINAL TRACT: The small and large bowel are unremarkable. The appendix is unremarkable. ABDOMINAL WALL: No significant hernia is appreciated. LYMPH NODES: No retroperitoneal lymphadenopathy. VASCULAR: The aorta and iliofemoral calcifications without aneurysm. PELVIC VISCERA: Normal prostate and seminal vesicles. OSSEOUS STRUCTURES: Multiple superior endplate compression fractures present at L2 L1 and T12. There is 50% collapse of T9. CT/CT abdomen pelvis wo con IMPRESSION: No interval change when compared to the prior study with a cirrhotic liver, splenomegaly, nonobstructing right renal calculus and multiple vertebral compression fractures Fleischner guidelines were followed.
[2022-02-10 17:15] VITALS: BP 133/104; PULSE 126; O2SAT 96
[2022-02-10 17:32] VITALS: BP 173/124; PULSE 129; RESP 18; TEMP 37; O2SAT 98; BMI 31.5
--- NOTE | 2022-02-10 17:35 | ECG_ITS ---
Test Reason : tachycardia Blood Pressure : / mmHG Vent. Rate : 127 BPM Atrial Rate : 127 BPM P-R Int : 112 ms QRS Dur : 074 ms QT Int : 398 ms P-R-T Axes : 000 019 -11 degrees QTc Int : 578 ms Sinus tachycardia Nonspecific ST and T wave abnormality Abnormal ECG When compared with ECG of 23-NOV-2021 12:19, Nonspecific T wave abnormality now evident in Anterolateral leads Referred By: Generic ED Physician Electronically Signed By:GELA OWENS
[2022-02-10] MEDS: Ondansetron ODT 4 MG TAB.RAPDIS TRANSLINGU (18:25)
[2022-02-10 21:05] VITALS: BP 165/120; PULSE 128; RESP 16; TEMP 36; O2SAT 97
[2022-02-10 22:06] VITALS: BP 170/127; PULSE 122; RESP 20; TEMP 36.6; O2SAT 97
--- NOTE | 2022-02-10 22:29 | PC.NURSE ---
Addendum entered by Claudia Mccain 02/11/22 06:58: report given to CANDIS Shepard Addendum entered by Claudia Mccain 02/11/22 05:43: Dr. London made aware of pt BP 187/124. pt is asymptomatic, per Dr. London order to give his clonidine now Addendum entered by Claudia Mccain 02/10/22 22:50: report given to CANDIS Clemons Addendum entered by Claudia Mccain 02/10/22 22:39: pt stated that last alcohol was yesterday, he normally drink 1/4 of vodka per day Original Note: pt startedon continous cardiac monitoring. Dr. Shane by bedside inserting US peripheral IV
[2022-02-10 22:34] LABS: MANUAL DIFF FLAG NO
[2022-02-10 22:37] LABS: Basophils Absolute Auto 0.1 X10*3/uL (0.0-0.2); Basophils Percent Auto 0.4 % (0-2); Hematocrit 45.3 % (42.0-52.0); Hemoglobin 16.2 g/dl (14.0-18.0); Imm Gran Abs Auto 0.05 X10*3/uL (0.00-0.03); Imm Gran Pct Auto 0.4 % (0.0-0.4); Lymphocytes Absolute Auto 1.7 X10*3/uL (1.2-4.9); Lymphocytes Percent Auto 13.3 % (20-40); Mean Corpuscular HGB Conc 35.8 g/dl (31.0-36.0); Mean Corpuscular Hemoglobin 31.2 pg (27.0-33.0); Mean Corpuscular Volume 87.3 fL (80.0-98.0); Mean Platelet Volume 9.5 fL (9.4-12.4); Monocytes Absolute Auto 0.5 X10*3/uL (0.1-1.2); Neutrophils Absolute Auto 10.3 x10*3/uL (2.0-8.3); Neutrophils Percent Auto 81.9 % (45-73); Platelet Count 197 X10*3/uL (160-400); Red Blood Count 5.19 X10*6/uL (4.60-5.80); White Blood Count 12.6 X10*3/uL (4.8-10.8)
[2022-02-10 22:38] LABS: OBS Int Ctl Valid YES; OBS1 NEGATIVE (NEGATIVE)
--- NOTE | 2022-02-10 22:46 | ED_ITS ---
HPI - Abdominal Pain General Chief Complaint: GI Bleed Stated Complaint: Abdominal Pain Time Seen by Provider: 02/10/22 22:02 Source: patient Mode of arrival: EMS History of Present Illness HPI narrative: This is a 56-year-old male who is a diabetic/COPD/alcohol dependency who presents via EMS with complaints of having been drinking every day for the past week, vodka, and now states that his last drink was yesterday and that he has been having black tarry stools and he is having significant abdominal pain. Patient states that he is a cirrhotic and typically is seen at [facility]. Patient also reports that he is short of breath. Related Data Home Medications Medication Instructions Recorded Confirmed buprenorphine 8 mg-naloxone 2 mg 2 strip sublingual DAILY 01/21/21 10/12/21 sublingual film (Suboxone) bupropion HCl 300 mg 24 hr tablet, 1 tab PO DAILY 01/21/21 10/12/21 extended release clonidine HCl 0.1 mg tablet 1 tab PO BID 01/21/21 10/12/21 fluticasone fur. 200 mcg-umeclid 1 puff inhalation DAILY 01/21/21 10/12/21 62.5 mcg-vilant 25 mcg inhalat.powder (Trelegy Ellipta) furosemide 40 mg tablet 1 tab PO DAILY 01/21/21 10/12/21 omeprazole 20 mg capsule,delayed 1 cap PO DAILY 01/21/21 10/12/21 release paroxetine HCl 40 mg tablet 1 tab PO DAILY 01/21/21 10/12/21 spironolactone 25 mg tablet 1 tab PO DAILY 01/21/21 10/12/21 tamsulosin 0.4 mg capsule 2 cap PO DAILY 01/21/21 10/12/21 atorvastatin 40 mg tablet 1 tab PO BEDTIME 05/14/21 10/12/21 finasteride 5 mg tablet 1 tab PO DAILY 05/14/21 10/12/21 insulin glargine 100 unit/mL (3 40 unit subcut BEDTIME 05/14/21 10/12/21 mL) subcutaneous pen (Basaglar KwikPen U-100 Insulin) blood sugar diagnostic (FreeStyle #10 ea 09/08/21 09/08/21 Lite Strips) docusate sodium 100 mg capsule 100 mg PO BID PRN constipation 09/08/21 10/12/21 folic acid 1 mg tablet 1 mg PO DAILY 09/08/21 10/12/21 hydroxyzine HCl 25 mg tablet 25 mg PO Q4H PRN Anxiety 09/08/21 10/12/21 lancets 30 gauge (Ultra-Care #100 ea 09/08/21 09/08/21 Lancets) pen needle,diabetic dual safty 30 #100 ea 09/08/21 09/08/21 gauge x 3/16 (BD AutoShield Duo Pen Needle) bupropion HCl 150 mg tablet,12 hr 1 tab PO DAILY 10/12/21 10/12/21 sustained-release ibuprofen 800 mg tablet 800 mg PO BID PRN Pain (Scale 10/12/21 10/12/21 Score 4-6) Previous Rx's Medication Instructions Recorded albuterol sulfate 90 mcg/actuation 1 inh inhalation QID PRN shortness 05/19/21 aerosol inhaler (ProAir HFA) of breath or wheezing #8.5 grams sulfamethoxazole 800 1 tab PO Q12H 7 days #14 tabs 10/12/21 mg-trimethoprim 160 mg tablet (Bactrim DS) insulin glargine 100 unit/mL 40 unit (0.4 mL) subcut BEDTIME 11/23/21 subcutaneous solution #10 mL ondansetron 4 mg disintegrating 4 mg PO Q8H PRN nausea and 11/23/21 tablet vomiting #14 tabs Allergies Allergy/AdvReac Type Severity Reaction Status Date / Time No Known Allergies Allergy Verified 10/12/21 10:58 [No Known Allergies*] Review of Systems Review of Systems Pertinent positives and negatives as stated in HPI 10 point review of systems is otherwise negative. [facility] Past Medical History Source: nursing notes reviewed Medical History Acute interstitial pneumonitis Anxiety ARDS (adult respiratory distress syndrome) ARDS (adult respiratory distress syndrome) CHF (congestive heart failure) Cocaine abuse Community acquired pneumonia COPD (chronic obstructive pulmonary disease) COPD (chronic obstructive pulmonary disease) COPD exacerbation COPD exacerbation ETOH abuse Hypertension Hypoxia ILD (interstitial lung disease) Interstitial lung disease Liver cirrhosis Obesity (BMI 35.0-39.9 without comorbidity) Obesity (BMI 35.0-39.9 without comorbidity) KATHYA (obstructive sleep apnea) KATHYA (obstructive sleep apnea) Pneumonia Pneumonia Pneumonitis Sepsis Smoker TBI (traumatic brain injury) Surgical History H/O brain surgery No significant past surgical history Family History Family History Other Lymphoma Social History Social History Household Members: None Housing: Apartment Housing Other:: Sober House Do you presently have visiting nurse or other home services: No Alcohol intake: current Alcohol intake frequency: 3 or more drinks per day Alcohol type: hard liquor Patient Tobacco Use Status: Never used Tobacco Tobacco use type: Cigarette Cigarette Packs Per Day: 0.5 Cigarettes Per Day: 7 Second Hand Smoke Exposure: Yes Substance Use Type: Crack/Cocaine Advance Directives: Yes Advance Directives on File: Yes Advance Directives Date on File: 05/20/21 service: No Current occupational status: unemployed and disabled Physical Exam ED Vital Signs: Vital Signs - 24 hr 02/10/22 17:32 02/10/22 21:05 02/10/22 22:06 Temperature 98.6 F 96.8 F 97.9 F Pulse Rate 129 H 128 H 122 H Respiratory Rate 18 16 20 Blood Pressure 173/124 H 165/120 H 170/127 H Pulse Oximetry 98 97 97 Oxygen Delivery Method Room Air Room Air Room Air 02/11/22 00:01 Temperature 98.8 F Pulse Rate 126 H Respiratory Rate 20 Blood Pressure 165/108 H Pulse Oximetry 97 Oxygen Delivery Method Room Air BMI result Body Mass Index 31.5 VITAL SIGNS: Reviewed. GENERAL: Chronically-ill, tremulous, well nourished, in no acute distress. HEAD: Normocephalic/atraumatic, but chronic scar noted to left skull EYES: PERRLA, EOMI EARS: Ext canals without abnormality OROPHARYNX: no oral lesions noted, posterior pharynx clear LUNGS: Normal breath sounds. No adventitious sounds or accessory muscle use. SpO2<98> CARDIOVASCULAR: Regular rate and rhythm without noted murmurs, no JVD or lower extremity edema. ABDOMEN: Soft, tenderness in upper abdomen without rebound, non-distended with bowel sounds. RENETTA: No skin tags/lesions/external hemorrhoids, rectal vault with minimal soft stool that is dark in appearance, good rectal tone. MUSCULOSKELETAL: No tenderness, deformities, or effusions noted on gross inspection. EXTREMITIES: No cyanosis, clubbing or edema. SKIN: Inspection of the skin reveals no rashes NEUROLOGIC: Alert and oriented x 4. Strength and sensation to light touch were grossly intact x 4, tremulous. Course Course Course Narrative: 56-year-old male with history and clinical presentation concerning for possible alcohol withdrawal and questionable GI bleed. On review of stool guaiac it is negative but patient remains tachycardic likely secondary to dehydration with a component of withdrawal. Patient will receive fluids as well as Ativan. The anion gap reviewed in the chemistry results is felt to be associated with patient's dehydration and not DKA. Patient received GI cocktail. Review of all investigations negative for acute findings other than alcohol withdrawal and likely associated alcohol gastritis. Leukocytosis is considered to be reactive given patient's nausea vomiting. Patient remains hypertensive and tachycardic and discuss the case with the inpatient hospitalist who accepts admission for alcohol withdrawal. MDM - Abdominal Pain Lab Data Result diagrams: 02/10/22 22:29 02/10/22 22:29 Labs: Lab Results 02/10/22 02/10/22 02/10/22 Range/Units 22:28 22:28 22:29 WBC 12.6 H (4.8-10.8) X10*3/uL RBC 5.19 D (4.60-5.80) X10*6/uL Hgb 16.2 D (14.0-18.0) g/dl Hct 45.3 D (42.0-52.0) % MCV 87.3 (80.0-98.0) fL MCH 31.2 (27.0-33.0) pg MCHC 35.8 (31.0-36.0) g/dl RDW 14.0 (11.0-16.0) % Plt Count 197 D (160-400) X10*3/uL MPV 9.5 (9.4-12.4) fL Immature Gran % (Auto) 0.4 (0.0-0.4) % Neut % (Auto) 81.9 H (45-73) % Lymph % (Auto) 13.3 L (20-40) % [place] % (Auto) 4.0 (2-11) % Eos % (Auto) 0.0 (0-4) % Baso % (Auto) 0.4 (0-2) % Lymph # (Auto) 1.7 (1.2-4.9) X10*3/uL [place] # (Auto) 0.5 (0.1-1.2) X10*3/uL Eos # (Auto) 0.0 (0.0-0.4) X10*3/uL Baso # (Auto) 0.1 (0.0-0.2) X10*3/uL Abs Immat Gran (auto) 0.05 H (0.00-0.03) X10*3/uL Absolute Neuts (auto) 10.3 H (2.0-8.3) x10*3/uL Absolute Nucleated RBC 0.000 (0.0-0.012) X10*3/uL Nucleated RBC % (auto) 0.0 (0.0-0.2) /100WBC VBG pH (7.32-7.43) VBG pCO2 mmHg VBG pO2 mmHg VBG HCO3 (22-26) mmol/L VBG O2 Saturation % VBG Base Excess mmol/L Sodium (135-145) mmol/L Potassium (3.3-5.1) mmol/L Chloride (96-108) mmol/L Carbon Dioxide (22-29) mmol/L Anion Gap (12-20) BUN (9-16) mg/dL Creatinine (0.5-1.4) mg/dL Estim Creat Clear Calc Estimated GFR Random Glucose (60-115) mg/dL Calcium (8.4-10.2) mg/dL Total Bilirubin (0.0-1.0) mg/dL AST (5-37) U/L ALT (0-40) U/L Alkaline Phosphatase (39-117) U/L Troponin I High Sens (<3.5-35.0) ng/L B-Natriuretic Peptide (<100) pg/mL Total Protein (6.5-8.0) g/dL Albumin (3.5-5.0) g/dL Lipase (8-78) U/L Stool Occult Blood NEGATIVE (NEGATIVE) Ethyl Alcohol mg/dL Acetone, Qual (Negative) COVID-19 (YADIRA) Negative (Negative) COVID-19 Clin Com See Note Blood Type Antibody Screen 02/10/22 02/10/2222 Range/Units 22:29 22:29 22:29 WBC (4.8-10.8) X10*3/uL RBC (4.60-5.80) X10*6/uL Hgb (14.0-18.0) g/dl Hct (42.0-52.0) % MCV (80.0-98.0) fL MCH (27.0-33.0) pg MCHC (31.0-36.0) g/dl RDW (11.0-16.0) % Plt Count (160-400) X10*3/uL MPV (9.4-12.4) fL Immature Gran % (Auto) (0.0-0.4) % Neut % (Auto) (45-73) % Lymph % (Auto) (20-40) % [place] % (Auto) (2-11) % Eos % (Auto) (0-4) % Baso % (Auto) (0-2) % Lymph # (Auto) (1.2-4.9) X10*3/uL [place] # (Auto) (0.1-1.2) X10*3/uL Eos # (Auto) (0.0-0.4) X10*3/uL Baso # (Auto) (0.0-0.2) X10*3/uL Abs Immat Gran (auto) (0.00-0.03) X10*3/uL Absolute Neuts (auto) (2.0-8.3) x10*3/uL Absolute Nucleated RBC (0.0-0.012) X10*3/uL Nucleated RBC % (auto) (0.0-0.2) /100WBC VBG pH (7.32-7.43) VBG pCO2 mmHg VBG pO2 mmHg VBG HCO3 (22-26) mmol/L VBG O2 Saturation % VBG Base Excess mmol/L Sodium 143 (135-145) mmol/L Potassium 3.6 (3.3-5.1) mmol/L Chloride 102 (96-108) mmol/L Carbon Dioxide 23 (22-29) mmol/L Anion Gap 22 H (12-20) BUN 7 L (9-16) mg/dL Creatinine 1.01 (0.5-1.4) mg/dL Estim Creat Clear Calc 94.3 Estimated GFR > 60 Random Glucose 175 H (60-115) mg/dL Calcium 10.0 D (8.4-10.2) mg/dL Total Bilirubin 1.8 H (0.0-1.0) mg/dL AST 91 H (5-37) U/L ALT 109 H (0-40) U/L Alkaline Phosphatase 109 (39-117) U/L Troponin I High Sens 4.3 (<3.5-35.0) ng/L B-Natriuretic Peptide 20 (<100) pg/mL Total Protein 7.8 D (6.5-8.0) g/dL Albumin 4.7 D (3.5-5.0) g/dL Lipase 17 (8-78) U/L Stool Occult Blood (NEGATIVE) Ethyl Alcohol 10 mg/dL Acetone, Qual Negative (Negative) COVID-19 (YADIRA) (Negative) COVID-19 Clin Com Blood Type Antibody Screen 02/10/22 02/10/22 Range/Units 22:53 23:26 WBC (4.8-10.8) X10*3/uL RBC (4.60-5.80) X10*6/uL Hgb (14.0-18.0) g/dl Hct (42.0-52.0) % MCV (80.0-98.0) fL MCH (27.0-33.0) pg MCHC (31.0-36.0) g/dl RDW (11.0-16.0) % Plt Count (160-400) X10*3/uL MPV (9.4-12.4) fL Immature Gran % (Auto) (0.0-0.4) % Neut % (Auto) (45-73) % Lymph % (Auto) (20-40) % [place] % (Auto) (2-11) % Eos % (Auto) (0-4) % Baso % (Auto) (0-2) % Lymph # (Auto) (1.2-4.9) X10*3/uL [place] # (Auto) (0.1-1.2) X10*3/uL Eos # (Auto) (0.0-0.4) X10*3/uL Baso # (Auto) (0.0-0.2) X10*3/uL Abs Immat Gran (auto) (0.00-0.03) X10*3/uL Absolute Neuts (auto) (2.0-8.3) x10*3/uL Absolute Nucleated RBC (0.0-0.012) X10*3/uL Nucleated RBC % (auto) (0.0-0.2) /100WBC VBG pH 7.60 H* (7.32-7.43) VBG pCO2 18 mmHg VBG pO2 154 mmHg VBG HCO3 18 L (22-26) mmol/L VBG O2 Saturation 99.0 % VBG Base Excess 0.4 mmol/L Sodium (135-145) mmol/L Potassium (3.3-5.1) mmol/L Chloride (96-108) mmol/L Carbon Dioxide (22-29) mmol/L Anion Gap (12-20) BUN (9-16) mg/dL Creatinine (0.5-1.4) mg/dL Estim Creat Clear Calc Estimated GFR Random Glucose (60-115) mg/dL Calcium (8.4-10.2) mg/dL Total Bilirubin (0.0-1.0) mg/dL AST (5-37) U/L ALT (0-40) U/L Alkaline Phosphatase (39-117) U/L Troponin I High Sens (<3.5-35.0) ng/L B-Natriuretic Peptide (<100) pg/mL Total Protein (6.5-8.0) g/dL Albumin (3.5-5.0) g/dL Lipase (8-78) U/L Stool Occult Blood (NEGATIVE) Ethyl Alcohol mg/dL Acetone, Qual (Negative) COVID-19 (YADIRA) (Negative) COVID-19 Clin Com Blood Type A Positive Antibody Screen NEGATIVE Discharge Plan Discharge Clinical Impression: Alcohol use disorder, moderate, dependence, Alcoholic gastritis, Alcohol withdrawal, Obesity (BMI 35.0-39.9 without comorbidity), COPD (chronic obstruct kacey pulmonary disease), Diabetes, Cirrhosis of liver Patient Disposition: Admitted As Inpatient Prescriptions: No Action furosemide 40 mg tablet 1 tab PO DAILY clonidine HCl 0.1 mg tablet 1 tab PO BID spironolactone 25 mg tablet 1 tab PO DAILY tamsulosin 0.4 mg capsule 2 cap PO DAILY omeprazole 20 mg capsule,delayed release(DR/EC) 1 cap PO DAILY paroxetine HCl 40 mg tablet 1 tab PO DAILY bupropion HCl 300 mg tablet extended release 24 hr 1 tab PO DAILY buprenorphine-naloxone [Suboxone] 8-2 mg film 2 strip sublingual DAILY Trelegy Ellipta 200-62.5-25 mcg blister with device 1 puff inhalation DAILY atorvastatin 40 mg tablet 1 tab PO BEDTIME finasteride 5 mg tablet 1 tab PO DAILY Basaglar TiffaniePen U-100 Insulin 100 unit/mL (3 mL) insulin pen 40 unit subcut BEDTIME albuterol sulfate [ProAir HFA] 90 mcg/actuation HFA aerosol inhaler 1 inh inhalation QID PRN (Reason: shortness of breath or wheezing) Qty: 8.5 0RF sulfamethoxazole-trimethoprim [Bactrim DS] 800-160 mg tablet 1 tab PO Q12H 7 Days Qty: 14 0RF ibuprofen 800 mg Tablet 800 mg PO BID PRN (Reason: Pain (Scale Score 4-6)) bupropion HCl 150 mg tablet sustained-release 12 hr 1 tab PO DAILY ondansetron 4 mg tablet,disintegrating 4 mg PO Q8H PRN (Reason: nausea and vomiting) Qty: 14 0RF insulin glargine 100 unit/mL solution 40 unit subcut BEDTIME Qty: 10 0RF hydroxyzine HCl 25 mg tablet 25 mg PO Q4H PRN (Reason: Anxiety) folic acid 1 mg tablet 1 mg PO DAILY (DME) FreeStyle Lite Strips Strip See Rx Instructions Not Applicable TID Qty: 10 Rx Instructions: As directed docusate sodium 100 mg capsule 100 mg PO BID PRN (Reason: constipation) (DME) lancets [Ultra-Care Lancets] 30 gauge misc See Rx Instructions .ROUTE TID Qty: 100 Rx Instructions: As directed (DME) BD AutoShield Duo Pen Needle 30 gauge x 3/16 needle See Rx Instructions .ROUTE .MEDSUPPLY Qty: 100 Rx Instructions: As directed
[2022-02-10 22:51] LABS: Ethanol 10 mg/dL
[2022-02-10 22:54] LABS: COVID-19 Test Negative (Negative)
[2022-02-10 22:55] LABS: Alanine Aminotransferase 109 U/L (0-40); Albumin Level 4.7 g/dL (3.5-5.0); Alkaline Phosphatase 109 U/L (39-117); Anion Gap 22 (12-20); Aspartate Amino Transferase 91 U/L (5-37); Bilirubin Total 1.8 mg/dL (0.0-1.0); Blood Urea Nitrogen 7 mg/dL (9-16); Carbon Dioxide 23 mmol/L (22-29); Chloride 102 mmol/L (96-108); Creatinine Clr Calc Pharmacy 94.3; Estimated Glomerular Filt Rate > 60; Glucose Random 175 mg/dL (60-115); Potassium 3.6 mmol/L (3.3-5.1); Sodium 143 mmol/L (135-145); Total Protein 7.8 g/dL (6.5-8.0)
[2022-02-10 22:59] LABS: Troponin-I High Sensitivity 4.3 ng/L (<3.5-35.0)
[2022-02-10 23:33] LABS: B Type Natriuretic Peptide 20 pg/mL (<100)
[2022-02-10] MEDS: LORazepam 2 MG/ML VIAL IVPUSH (23:33)
[2022-02-10] MEDS: ondansetron HCL 4 MG/2 ML VIAL IVPUSH (23:34)
[2022-02-10 23:36] LABS: VBG Base Excess 0.4 mmol/L; VBG HCO3 18 mmol/L (22-26); VBG pCO2 18 mmHg; VBG pO2 154 mmHg
--- NOTE | 2022-02-10 23:37 | PC.NURSE ---
Pt given lorazepam and andansetron per EMR.
[2022-02-10 23:40] LABS: Venous Blood Gas Refer to POC result
[2022-02-11] VITALS (9 sets, daily range): BP systolic 108–187; BP diastolic 72–124; PULSE 110–130; RESP 15–24; TEMP 36.4–37.4; O2SAT 93–99; BMI 33.0
[2022-02-11] MEDS: 0.9 % Sodium Chloride 500 ML 999 ML IV (00:10)
[2022-02-11 00:13] LABS: Acetone, serum QL Negative (Negative)
[2022-02-11 00:22] LABS: Lipase 17 U/L (8-78)
[2022-02-11] MEDS: Magnesium Hydrox/Alum Hydrox 30 ML ORAL.SUSP PO (00:43)
[2022-02-11] MEDS: LORazepam 1 MG TABLET 2 MG PO (00:43)
[2022-02-11] MEDS: Lidocaine HCl Viscous 2 % 15 ML SOLUTION 10 ML MUCOUS MEM (00:43)
--- NOTE | 2022-02-11 05:30 | PM.IMHP ---
History of Present Illness Date of Service: 02/11/22 Chief Complaint: Alcohol abuse/withdrawal/nausea/vomiting 56-year-old male with a past medical history of hypertension, hyperlipidemia, diabetes, COPD, CHF, interstitial lung disease, history of ARDS, obstructive sleep apnea, obesity, history of traumatic brain injury, liver cirrhosis, anxiety, depression presented to the hospital today with a chief complaint of alcohol detox. Patient reported that over the past 3-4 days he has been having nausea vomiting and abdominal discomfort; also reports couple of episodes of black stool. Denies any blood in the vomitus. Mentions burning in the chest because of the vomiting. Mentions he drinks alcohol on a regular basis, last drink was 2 days ago. Denies any prior history of alcohol withdrawal seizures. Denies any fever chills cough or sputum production. Denies any urinary symptoms. Review of all other systems is negative except mentioned above ER course: Per ER team patient stool guaiac was negative; patient noted to be hypertensive, tachycardic, mildly tremulous; on labs noted to have stable hemoglobin; mild transaminitis. patient was started on phenobarb protocol. Admitted to the hospital for further management PMFSH Medical History Acute interstitial pneumonitis Anxiety ARDS (adult respiratory distress syndrome) ARDS (adult respiratory distress syndrome) CHF (congestive heart failure) Cocaine abuse Community acquired pneumonia COPD (chronic obstructive pulmonary disease) COPD (chronic obstructive pulmonary disease) COPD exacerbation COPD exacerbation ETOH abuse Hypertension Hypoxia ILD (interstitial lung disease) Interstitial lung disease Liver cirrhosis Obesity (BMI 35.0-39.9 without comorbidity) Obesity (BMI 35.0-39.9 without comorbidity) KATHYA (obstructive sleep apnea) KATHYA (obstructive sleep apnea) Pneumonia Pneumonia Pneumonitis Sepsis Smoker TBI (traumatic brain injury) Family History Other Lymphoma Surgical History H/O brain surgery No significant past surgical history Social History Household Members: None Housing: Apartment Housing Other:: Sober House Do you presently have visiting nurse or other home services: No Alcohol intake: current Alcohol intake frequency: 3 or more drinks per day Alcohol type: hard liquor Patient Tobacco Use Status: Never used Tobacco Tobacco use type: Cigarette Cigarette Packs Per Day: 0.5 Cigarettes Per Day: 7 Second Hand Smoke Exposure: Yes Substance Use Type: Crack/Cocaine Advance Directives: Yes Advance Directives on File: Yes Advance Directives Date on File: 05/20/21 service: No Current occupational status: unemployed and disabled Meds Allergies Allergy/AdvReac Type Severity Reaction Status Date / Time No Known Allergies Allergy Verified 10/12/21 10:58 [No Known Allergies*] Active Medications: Current Medications Albuterol Sulfate (Albuterol Sulfate 90 Mcg 8 Gm Inhaler) 1 puff INHALE QID PRN PRN Reason: shortness of breath or wheezing Atorvastatin Calcium (Atorvastatin Calcium 40 Mg Tablet) 40 mg PO BEDTIME [facility] Bupropion HCl (Bupropion Hcl Xl 300 Mg Tab.Er.24h) 300 mg PO DAILY [facility] Bupropion HCl (Bupropion Hcl Xl 150 Mg Tab.Er.24h) 150 mg PO DAILY [facility] Clonidine HCl (Clonidine Hcl 0.1 Mg Tablet) 0.1 mg PO BID [facility]; Protocol Dextrose (Dextrose 50 % 25 Gm/50 Ml Syringe) 25 gm IVPUSH Q15M PRN; Protocol PRN Reason: per Hypoglycemia Standing Ord. Docusate Sodium (Docusate Sodium 100 Mg Capsule) 100 mg PO BID PRN PRN Reason: constipation Enoxaparin Sodium (Enoxaparin Sodium 40 Mg/0.4 Ml Syringe) 40 mg SUBCUT Q24H [facility] Famotidine (Famotidine 20 Mg Tablet) 20 mg PO BID [facility] Finasteride (Finasteride 5 Mg Tablet) 5 mg PO DAILY [facility] Folic Acid (Folic Acid 1 Mg Tablet) 1 mg PO DAILY [facility] Stop: 02/14/22 08:59 Furosemide (Furosemide 40 Mg Tablet) 40 mg PO DAILY [facility]; Protocol Glucose (Glucose Gel 15 Gm Gel..Gram.) 15 gm PO Q15M PRN; Protocol PRN Reason: per Hypoglycemia Standing Ord. Insulin Glargine (Insulin Glargine,Hum.Rec.Anlog 100 Unit/Ml 10 Ml Vial) 10 unit SUBCUT BEDTIME [facility] Insulin Human Lispro (Insulin Lispro 100 Unit/Ml 3 Ml Vial) 0 unit SUBCUT QIDACHS [facility]; Protocol Melatonin (Melatonin 3 Mg Tablet) 6 mg PO BEDTIME PRN PRN Reason: Insomnia Multivitamins/Vitamin C (Multivitamin Tablet) 1 tab PO DAILY [facility] Stop: 02/14/22 08:59 Paroxetine HCl (Paroxetine Hcl 40 Mg Tablet) 40 mg PO DAILY [facility] Pharmacy Consult (Consult Rx Perform Med Rec) 1 each MISCELLANE ONCE PRN PRN Reason: Consult order Pharmacy Consult (Consult Rx Etoh Phenob Po Dose) 1 each MISCELLANE ONCE PRN; Protocol PRN Reason: Consult order Phenobarbital 200 mg/ (Phenobarbital 15 mg) 215 mg PO Q3H [facility] Stop: 02/11/22 08:01 Senna (Sennosides 8.6 Mg Tablet) 17.2 mg PO BEDTIME PRN PRN Reason: Constipation Sodium Chloride (0.9 % Sodium Chloride Flush 3 Ml Syringe) 3 ml IVFLUSH QSHIFT [facility] Spironolactone (Spironolactone 25 Mg Tablet) 25 mg PO DAILY [facility]; Protocol Tamsulosin HCl (Tamsulosin Hcl 0.4 Mg Capsule) 0.8 mg PO DAILY [facility] Thiamine HCl (Thiamine Hcl 100 Mg Tablet) 100 mg PO DAILY [facility] Stop: 02/14/22 08:59 Home Medications Medication Instructions Recorded Confirmed Last Taken Type buprenorphine 8 mg-naloxone 2 mg 2 strip sublingual DAILY 01/21/21 02/11/22 05/13/21 History sublingual film (Suboxone) bupropion HCl 300 mg 24 hr tablet, 1 tab PO DAILY 01/21/21 02/11/22 05/13/21 History extended release clonidine HCl 0.1 mg tablet 1 tab PO BID 01/21/21 02/11/22 05/13/21 History furosemide 40 mg tablet 1 tab PO DAILY 01/21/21 02/11/22 05/13/21 History omeprazole 20 mg capsule,delayed 1 cap PO DAILY 01/21/21 02/11/22 05/13/21 History release paroxetine HCl 40 mg tablet 1 tab PO DAILY 01/21/21 02/11/22 05/13/21 History spironolactone 25 mg tablet 1 tab PO DAILY 01/21/21 02/11/22 05/13/21 History tamsulosin 0.4 mg capsule 2 cap PO DAILY 01/21/21 02/11/22 05/13/21 History atorvastatin 40 mg tablet 1 tab PO BEDTIME 05/14/21 02/11/22 05/13/21 History finasteride 5 mg tablet 1 tab PO DAILY 05/14/21 02/11/22 05/13/21 History insulin glargine 100 unit/mL (3 40 unit subcut BEDTIME 05/14/21 02/11/22 05/13/21 History mL) subcutaneous pen (Basaglar KwikPen U-100 Insulin) blood sugar diagnostic (FreeStyle #10 ea 09/08/21 02/11/22 Unknown History Lite Strips) docusate sodium 100 mg capsule 100 mg PO BID PRN constipation 09/08/21 02/11/22 Unknown History folic acid 1 mg tablet 1 mg PO DAILY 09/08/21 02/11/22 Unknown History hydroxyzine HCl 25 mg tablet 25 mg PO Q4H PRN Anxiety 09/08/21 02/11/22 Unknown History lancets 30 gauge (Ultra-Care #100 ea 09/08/21 02/11/22 Unknown History Lancets) pen needle,diabetic dual safty 30 #100 ea 09/08/21 02/11/22 Unknown History gauge x 3/16 (BD AutoShield Duo Pen Needle) bupropion HCl 150 mg tablet,12 hr 1 tab PO DAILY 10/12/21 02/11/22 Unknown History sustained-release ibuprofen 800 mg tablet 800 mg PO BID PRN Pain (Scale 10/12/21 02/11/22 Unknown History Score 4-6) famotidine 20 mg tablet 1 tab PO BID 02/11/22 02/11/22 Unknown History Physical Exam Vital Signs and Narrative: Vital Signs: Last Vital Signs Temp 98.0 F 02/11/22 02:18 Pulse 130 H 02/11/22 02:18 Resp 16 02/11/22 02:18 BP 151/99 H 02/11/22 02:18 Pulse Ox 99 02/11/22 02:18 O2 Del Method 02/11/22 02:18 BMI result Body Mass Index 31.5 Gen: Appears be in no acute distress; obese HEENT: NCAT, Moist mucosa. Pulmonary: Vesicular breath sounds, fair air entry CVS: Normal S1-S2 Abdomen: BS+, Soft, Nontender Extremities: Warm well perfused Neuro: Alert and awake. Results Labs CBC and Chem 7: 02/10/22 22:29 02/10/22 22:29 Labs: Laboratory Results - last 24 hr 02/10/22 02/10/2222 22:28 22:28 22:29 MCV 87.3 MCH 31.2 MCHC 35.8 RDW 14.0 Plt Count 197 D MPV 9.5 Immature Gran % (Auto) 0.4 Neut % (Auto) 81.9 H Lymph % (Auto) 13.3 L Stanly % (Auto) 4.0 Eos % (Auto) 0.0 Baso % (Auto) 0.4 Lymph # (Auto) 1.7 Stanly # (Auto) 0.5 Eos # (Auto) 0.0 Baso # (Auto) 0.1 Abs Immat Gran (auto) 0.05 H Absolute Neuts (auto) 10.3 H Absolute Nucleated RBC 0.000 Nucleated RBC % (auto) 0.0 VBG pH VBG pCO2 VBG pO2 VBG HCO3 VBG O2 Saturation VBG Base Excess Anion Gap Estim Creat Clear Calc Estimated GFR Random Glucose Calcium Total Bilirubin AST ALT Alkaline Phosphatase Troponin I High Sens B-Natriuretic Peptide Total Protein Albumin Lipase Stool Occult Blood NEGATIVE Ethyl Alcohol Acetone, Qual COVID-19 (YADIRA) Negative COVID-19 [facility] Com See Note Blood Type Antibody Screen 02/10/22 02/10/22 02/10/22 22:29 22:29 22:29 MCV MCH MCHC RDW Plt Count MPV Immature Gran % (Auto) Neut % (Auto) Lymph % (Auto) Stanly % (Auto) Eos % (Auto) Baso % (Auto) Lymph # (Auto) Stanly # (Auto) Eos # (Auto) Baso # (Auto) Abs Immat Gran (auto) Absolute Neuts (auto) Absolute Nucleated RBC Nucleated RBC % (auto) VBG pH VBG pCO2 VBG pO2 VBG HCO3 VBG O2 Saturation VBG Base Excess Anion Gap 22 H Estim Creat Clear Calc 94.3 Estimated GFR > 60 Random Glucose 175 H Calcium 10.0 D Total Bilirubin 1.8 H AST 91 H ALT 109 H Alkaline Phosphatase 109 Troponin I High Sens 4.3 B-Natriuretic Peptide 20 Total Protein 7.8 D Albumin 4.7 D Lipase 17 Stool Occult Blood Ethyl Alcohol 10 Acetone, Qual Negative COVID-19 (YADIRA) COVID-19 [facility] Com Blood Type Antibody Screen 02/10/22 02/10/22 22:53 23:26 MCV MCH MCHC RDW Plt Count MPV Immature Gran % (Auto) Neut % (Auto) Lymph % (Auto) Stanly % (Auto) Eos % (Auto) Baso % (Auto) Lymph # (Auto) Stanly # (Auto) Eos # (Auto) Baso # (Auto) Abs Immat Gran (auto) Absolute Neuts (auto) Absolute Nucleated RBC Nucleated RBC % (auto) VBG pH 7.60 H* VBG pCO2 18 VBG pO2 154 VBG HCO3 18 L VBG O2 Saturation 99.0 VBG Base Excess 0.4 Anion Gap Estim Creat Clear Calc Estimated GFR Random Glucose Calcium Total Bilirubin AST ALT Alkaline Phosphatase Troponin I High Sens B-Natriuretic Peptide Total Protein Albumin Lipase Stool Occult Blood Ethyl Alcohol Acetone, Qual COVID-19 (YADIRA) COVID-19 Clin Com Blood Type A Positive Antibody Screen NEGATIVE Imaging Radiologist's Impressions: Impressions Abdomen/Pelvis CT 02/11/22 00:38 IMPRESSION: No interval change when compared to the prior study with a cirrhotic liver, splenomegaly, nonobstructing right renal calculus and multiple vertebral compression fractures Fleischner guidelines were followed. Assessment and Plan (1) Alcohol use disorder, moderate, dependence: Status: Acute (2) Alcoholic gastritis: Status: Acute (3) Diabetes: Status: Acute Plan 56-year-old male with a past medical history of hypertension, hyperlipidemia, diabetes, COPD, CHF, interstitial lung disease, history of ARDS, obstructive sleep apnea, obesity, history of traumatic brain injury, liver cirrhosis, anxiety, depression presented to the hospital today with a chief complaint of alcohol detox. Noted to have following conditions Alcohol abuse/withdrawal: Patient on phenobarb protocol. Monitor on CIWA. Thiamine folate and multivitamins. Telemetry. Seizure precautions. Patient mildly hypertensive, tachycardic likely in setting of alcohol withdrawal. Will continue to monitor. Alcoholic gastritis: Pepcid. Advanced diet as tolerated. Mild transaminitis: Likely in the setting of alcohol use. Trend liver enzymes. Dark stool: Stool guaiac negative and H&H stable. History of liver cirrhosis: Continue home Lasix, Aldactone. History of BPH: Continue home Flomax History of anxiety/depression: Continue home clonidine, bupropion. History of diabetes: Will give the patient on Lantus 10 units and insulin sliding scale. Patient was on 40 units of Lantus at home. History of opiate dependence: Patient reports that he has not been on Suboxone for past 6-8 months History of COPD: Stable DVT prophylaxis: Shirleynox Code status: Full code Quality Stroke Does the patient have a stroke diagnosis?: No VTE Prior VTE?: No VTE Risk Level:: Medical - moderate - high VTE Device Contraindication: Treatment Not Indicated VTE Drug Contraindication: N/A - Med Ordered
[2022-02-11] MEDS: Enoxaparin Sodium 40 MG/0.4 ML SYRINGE SUBCUT (05:33)
[2022-02-11] MEDS: PHENobarbitaL 200 MG, PHENobarbitaL 15 MG 215 MG PO ×2 (05:33→10:22)
[2022-02-11] MEDS: cloNIDine HCL 0.1 MG TABLET PO ×2 (05:50→20:31)
[2022-02-11 06:29] LABS: MANUAL DIFF FLAG NO
[2022-02-11 06:31] LABS: Basophils Percent Auto 0.3 % (0-2); Hematocrit 40.3 % (42.0-52.0); Hemoglobin 14.4 g/dl (14.0-18.0); Imm Gran Abs Auto 0.05 X10*3/uL (0.00-0.03); Imm Gran Pct Auto 0.4 % (0.0-0.4); Lymphocytes Absolute Auto 1.6 X10*3/uL (1.2-4.9); Lymphocytes Percent Auto 13.6 % (20-40); Mean Corpuscular HGB Conc 35.7 g/dl (31.0-36.0); Mean Corpuscular Hemoglobin 31.6 pg (27.0-33.0); Mean Corpuscular Volume 88.4 fL (80.0-98.0); Mean Platelet Volume 9.7 fL (9.4-12.4); Monocytes Absolute Auto 0.8 X10*3/uL (0.1-1.2); Monocytes Percent Auto 6.8 % (2-11); Neutrophils Absolute Auto 9.4 x10*3/uL (2.0-8.3); Neutrophils Percent Auto 78.9 % (45-73); Platelet Count 151 X10*3/uL (160-400); Red Blood Count 4.56 X10*6/uL (4.60-5.80); White Blood Count 11.9 X10*3/uL (4.8-10.8)
[2022-02-11 07:07] LABS: Anion Gap 16 (12-20); Blood Urea Nitrogen 8 mg/dL (9-16); Calcium 9.2 mg/dL (8.4-10.2); Carbon Dioxide 24 mmol/L (22-29); Chloride 102 mmol/L (96-108); Creatinine Clr Calc Pharmacy 112.1; Estimated Glomerular Filt Rate > 60; Glucose Random 161 mg/dL (60-115); Sodium 139 mmol/L (135-145)
[2022-02-11 07:39] LABS: Glucose, Whole Blood 163 mg/dL (60-115)
[2022-02-11] MEDS: Insulin Lispro 100 UNIT/ML 3 ML VIAL SUBCUT ×3 (08:34→17:36)
[2022-02-11] MEDS: Tamsulosin HCL 0.4 MG CAPSULE 0.8 MG PO (08:35)
[2022-02-11] MEDS: Finasteride 5 MG TABLET PO (08:35)
[2022-02-11] MEDS: buPROPion HCl XL 150 MG TAB.ER.24H PO (08:36)
[2022-02-11] MEDS: buPROPion HCl XL 300 MG TAB.ER.24H PO (08:36)
[2022-02-11] MEDS: Famotidine 20 MG TABLET PO ×2 (08:36→20:31)
[2022-02-11] MEDS: Multivitamin TABLET 1 TAB PO (08:36)
[2022-02-11] MEDS: Thiamine HCL 100 MG TABLET PO (08:36)
[2022-02-11] MEDS: Spironolactone 25 MG TABLET PO (08:37)
[2022-02-11] MEDS: Furosemide 40 MG TABLET PO (08:37)
[2022-02-11] MEDS: Folic Acid 1 MG TABLET PO (08:37)
[2022-02-11] MEDS: 0.9 % Sodium Chloride Flush 3 ML SYRINGE IVFLUSH ×3 (08:38→21:59)
--- NOTE | 2022-02-11 09:46 | MHC.CM.PN ---
PATIENT SOUND ASLEEP AND NOT RESPONDING TO CASE MANAGEMENT ATTEMPTS TO PERFORM ASSESSMENT FROM PREVIOUS RECORDS, PATIENT LIVES IN A SOBER LIVING HOME AND RELIES ON HOME O2. IT IS UNCLEAR IF HE HAS ANY VNA SERVICES OR IF HE IS COVID VACCINATED. CASE MANAGEMENT TO RETURN AT A MORE APPROPRIATE TIME. HCP ON FILE AND VERIFIED. PCP PREVIOUSLY NOTED TO BE LEONILA AZAR. IMM 02/11 LEFT BEDSIDE WITH CONTACT CARD
[2022-02-11] MEDS: PARoxetine HCL 40 MG TABLET PO (10:22)
--- NOTE | 2022-02-11 11:26 | PHA.MEDREC ---
MED REC COMPLETE Pharmacy Consult ? Medication Reconciliation Pharmacy has completed the medication reconciliation.
--- NOTE | 2022-02-11 11:29 | PM.EVENT ---
Event Note Date of Service: 02/11/22 Event Note: Patient seen and examined. Admitted this morning with alcohol withdrawal, still with tremors, tachy, no seizure. A/P per H and P of this morning.
--- NOTE | 2022-02-11 11:54 | PC.NURSE ---
some morning meds given late, meds were not loaded in overflow pyxis. Abiola in pharmacy told this [facility] underwriter that a tech would come to overflow and load meds. meds given when received. pt alert and oriented, denies pain, vss.
--- NOTE | 2022-02-11 11:56 | MHC.RECOVRN ---
Met with pt in Overflow 2 after consult placed to Addiction Medicine. Pt currently admitted for alcohol withdrawal. Pt familiar with t/w from previous encounters. Pt reports drinking 1/2 pint vodka daily for about a month. Pt reports heroin use, IN, 1-2 bundles daily, last use 1 week ago. Pt also reports cocaine use, INH, last use 1 week ago. Pt is not currently experiencing opiate withdrawal. Pt has been on Suboxone in the past, last a few months ago. Pt is not interested in MOUD at this time. Pt would like to continue [facility]ION tx and pursue CSS level of care. T/w available as needed. Discussed with Jalyn Abdi APRN.
[2022-02-11 12:44] LABS: Glucose, Whole Blood 152 mg/dL (60-115)
--- NOTE | 2022-02-11 14:53 | MHC.RECOVRN ---
Referral sent to [facility] for CSS level of care.
[2022-02-11] MEDS: Docusate Sodium 100 MG CAPSULE PO (16:45)
[2022-02-11 17:16] LABS: Glucose, Whole Blood 173 mg/dL (60-115)
--- NOTE | 2022-02-11 19:45 | PC.NURSE ---
pt remains tachycardic with HR 115-120. pt asymptomatic and no apparent distress.
[2022-02-11] MEDS: PHENobarbitaL 30 MG TABLET 60 MG PO (20:31)
[2022-02-11] MEDS: Atorvastatin Calcium 40 MG TABLET PO (20:31)
[2022-02-11] MEDS: Insulin Glargine,Hum.rec.anlog 100 UNIT/ML 10 ML VIAL 10 UNIT SUBCUT (20:32)
[2022-02-11 20:33] LABS: Glucose, Whole Blood 131 mg/dL (60-115)
[2022-02-12] VITALS (8 sets, daily range): BP systolic 90–133; BP diastolic 54–81; PULSE 79–105; RESP 16–18; TEMP 36.5–37.3; O2SAT 93–97
[2022-02-12] MEDS: Enoxaparin Sodium 40 MG/0.4 ML SYRINGE SUBCUT (05:59)
[2022-02-12 07:46] LABS: Glucose, Whole Blood 128 mg/dL (60-115)
[2022-02-12] MEDS: cloNIDine HCL 0.1 MG TABLET PO ×2 (08:39→21:13)
[2022-02-12] MEDS: Furosemide 40 MG TABLET PO (08:39)
[2022-02-12] MEDS: Finasteride 5 MG TABLET PO (08:39)
[2022-02-12] MEDS: Multivitamin TABLET 1 TAB PO (08:40)
[2022-02-12] MEDS: PARoxetine HCL 40 MG TABLET PO (08:40)
[2022-02-12] MEDS: Spironolactone 25 MG TABLET PO (08:40)
[2022-02-12] MEDS: Folic Acid 1 MG TABLET PO (08:40)
[2022-02-12] MEDS: Tamsulosin HCL 0.4 MG CAPSULE 0.8 MG PO (08:40)
[2022-02-12] MEDS: buPROPion HCl XL 300 MG TAB.ER.24H PO (08:40)
[2022-02-12] MEDS: buPROPion HCl XL 150 MG TAB.ER.24H PO (08:40)
[2022-02-12] MEDS: Thiamine HCL 100 MG TABLET PO (08:41)
[2022-02-12] MEDS: Famotidine 20 MG TABLET PO ×2 (08:41→21:13)
[2022-02-12] MEDS: 0.9 % Sodium Chloride Flush 3 ML SYRINGE IVFLUSH ×2 (08:41→16:59)
[2022-02-12] MEDS: PHENobarbitaL 30 MG TABLET 60 MG PO ×2 (08:41→21:14)
--- NOTE | 2022-02-12 11:40 | P.PNIM_ITS ---
Subjective Subjective Date of Service: 02/12/22 Interval History: alcohol withdrawal f/u c/o some abdominal pain no tremors Review of Systems no shakes, no n/v, +abd pain Physical Exam 2 Vital Signs: Vital Signs: Last Vital Signs Temp 97.7 F 02/12/22 07:39 Pulse 96 02/12/22 07:39 Resp 17 02/12/22 07:39 BP 118/75 02/12/22 07:39 Pulse Ox 97 02/12/22 07:39 O2 Del Method 02/12/22 07:39 BMI result Body Mass Index 33.0 Objective Data Active Medications Albuterol Sulfate (Albuterol Sulfate 90 Mcg 8 Gm Inhaler) 1 puff INHALE QID PRN PRN Reason: shortness of breath or wheezing Aripiprazole (Aripiprazole 5 Mg Tablet) 5 mg PO DAILY [facility] Atorvastatin Calcium (Atorvastatin Calcium 40 Mg Tablet) 40 mg PO BEDTIME [facility] Last Admin: 02/11/22 20:31 Dose: 40 mg Documented By: BRODY Bupropion HCl (Bupropion Hcl Xl 300 Mg Tab.Er.24h) 300 mg PO DAILY [facility] Last Admin: 02/12/22 08:40 Dose: 300 mg Documented By: JESSICA Bupropion HCl (Bupropion Hcl Xl 150 Mg Tab.Er.24h) 150 mg PO DAILY [facility] Last Admin: 02/12/22 08:40 Dose: 150 mg Documented By: JESSICA Clonidine HCl (Clonidine Hcl 0.1 Mg Tablet) 0.1 mg PO BID [facility]; Protocol Last Admin: 02/12/22 08:39 Dose: 0.1 mg Documented By: JESSICA Dextrose (Dextrose 50 % 25 Gm/50 Ml Syringe) 25 gm IVPUSH Q15M PRN; Protocol PRN Reason: per Hypoglycemia Standing Ord. Docusate Sodium (Docusate Sodium 100 Mg Capsule) 100 mg PO BID PRN PRN Reason: constipation Last Admin: 02/11/22 16:45 Dose: 100 mg Documented By: HARSHAD Enoxaparin Sodium (Enoxaparin Sodium 40 Mg/0.4 Ml Syringe) 40 mg SUBCUT Q24H [facility] Last Admin: 02/12/22 05:59 Dose: 40 mg Documented By: FRANDY Famotidine (Famotidine 20 Mg Tablet) 20 mg PO BID [facility] Last Admin: 02/12/22 08:41 Dose: 20 mg Documented By: JESSICA Finasteride (Finasteride 5 Mg Tablet) 5 mg PO DAILY [facility] Last Admin: 02/12/22 08:39 Dose: 5 mg Documented By: JESSICA Folic Acid (Folic Acid 1 Mg Tablet) 1 mg PO DAILY [facility] Stop: 02/14/22 08:59 Last Admin: 02/12/22 08:40 Dose: 1 mg Documented By: JESSICA Furosemide (Furosemide 40 Mg Tablet) 40 mg PO DAILY [facility]; Protocol Last Admin: 02/12/22 08:39 Dose: 40 mg Documented By: JESSICA Glucose (Glucose Gel 15 Gm Gel..Gram.) 15 gm PO Q15M PRN; Protocol PRN Reason: per Hypoglycemia Standing Ord. Hydroxyzine HCl (Hydroxyzine Hcl 25 Mg Tablet) 25 mg PO Q4H PRN PRN Reason: Anxiety Insulin Glargine (Insulin Glargine,Hum.Rec.Anlog 100 Unit/Ml 10 Ml Vial) 10 unit SUBCUT BEDTIME [facility] Last Admin: 02/11/22 20:32 Dose: 10 unit Documented By: MEGHAN-NEWTON Insulin Human Lispro (Insulin Lispro 100 Unit/Ml 3 Ml Vial) 0 unit SUBCUT QIDACHS [facility]; Protocol Last Admin: 02/12/22 08:32 Dose: Not Given Documented By: JESSICA Non-Admin Reason: No Insulin Coverage Melatonin (Melatonin 3 Mg Tablet) 6 mg PO BEDTIME PRN PRN Reason: Insomnia Multivitamins/Vitamin C (Multivitamin Tablet) 1 tab PO DAILY [facility] Stop: 02/14/22 08:59 Last Admin: 02/12/22 08:40 Dose: 1 tab Documented By: JESSICA Omeprazole (Omeprazole 40 Mg Capsule.Dr) 40 mg PO DAILY@0630 [facility] Paroxetine HCl (Paroxetine Hcl 40 Mg Tablet) 40 mg PO DAILY [facility] Last Admin: 02/12/22 08:40 Dose: 40 mg Documented By: JESSICA Pharmacy Consult (Consult Rx Perform Med Rec) 1 each MISCELLANE ONCE PRN PRN Reason: Consult order Pharmacy Consult (Consult Rx Etoh Phenob Po Dose) 1 each MISCELLANE ONCE PRN; Protocol PRN Reason: Consult order Phenobarbital (Phenobarbital 30 Mg Tablet) 60 mg PO BID [facility] Stop: 02/13/22 09:01 Last Admin: 02/12/22 08:41 Dose: 60 mg Documented By: JESSICA Phenobarbital (Phenobarbital 30 Mg Tablet) 30 mg PO BID [facility] Stop: 02/14/22 21:01 Phenobarbital (Phenobarbital 30 Mg Tablet) 30 mg PO DAILY [facility] Stop: 02/16/22 09:01 Potassium Chloride (Potassium Chloride Er 10 Meq Capsule.Er) 10 meq PO DAILY [facility] Senna (Sennosides 8.6 Mg Tablet) 17.2 mg PO BEDTIME PRN PRN Reason: Constipation Sodium Chloride (0.9 % Sodium Chloride Flush 3 Ml Syringe) 3 ml IVFLUSH QSHIFT [facility] Last Admin: 02/12/22 08:41 Dose: 3 ml Documented By: JESSICA Spironolactone (Spironolactone 25 Mg Tablet) 25 mg PO DAILY [facility]; Protocol Last Admin: 02/12/22 08:40 Dose: 25 mg Documented By: JESSICA Tamsulosin HCl (Tamsulosin Hcl 0.4 Mg Capsule) 0.8 mg PO DAILY [facility] Last Admin: 02/12/22 08:40 Dose: 0.8 mg Documented By: JESSICA Thiamine HCl (Thiamine Hcl 100 Mg Tablet) 100 mg PO DAILY [facility] Stop: 02/14/22 08:59 Last Admin: 02/12/22 08:41 Dose: 100 mg Documented By: JESSICA Labs CBC & Chem 7: 02/11/22 05:52 02/11/22 05:52 Labs: Laboratory Results - last 24 hr 02/11/22 02/11/22 02/11/22 12:24 17:08 20:25 POC Glucose 152 H 173 H 131 H 02/12/22 07:41 POC Glucose 128 H Assessment and Plan (1) Alcohol use disorder, moderate, dependence: Status: Acute (2) Alcoholic gastritis: Status: Acute (3) Alcohol withdrawal: Status: Acute Plan 56-year-old male with a past medical history of hypertension, hyperlipidemia, diabetes, COPD, CHF, interstitial lung disease, history of ARDS, obstructive sleep apnea, obesity, history of traumatic brain injury, liver cirrhosis, anxiety, depression presented to the hospital today with a chief complaint of alcohol detox.? Noted to have following conditions Alchol withdrawal--continue Phenobarbital Alcoholic gastritis: Pepcid.? Advanced diet as tolerated. Mild transaminitis:? Likely in the setting of alcohol use.? Trend liver enzymes. Dark stool:? Stool guaiac negative and H&H stable. check H/H if trending down, gi eval History of liver cirrhosis: Continue home Lasix, Aldactone.? History of BPH: Continue home Flomax History of anxiety/depression:? Continue home clonidine, bupropion. History of diabetes:? Will give the patient on Lantus 10 units and insulin sliding scale.? Patient was on 40 units of Lantus at home. History of opiate dependence: Patient?reports that he has not been on Suboxone? for past 6-8 months History of COPD: Stable DVT prophylaxis:? Lovenox Code status:? Full code Quality Stroke Does the patient have a stroke diagnosis?: No VTE Prior VTE?: No VTE Risk Level:: Medical - moderate - high VTE Device Contraindication: Treatment Not Indicated VTE Drug Contraindication: N/A - Med Ordered
[2022-02-12 11:44] LABS: Glucose, Whole Blood 127 mg/dL (60-115)
[2022-02-12] MEDS: Omeprazole 40 MG CAPSULE.DR PO (12:04)
[2022-02-12] MEDS: ARIPiprazole 5 MG TABLET PO (12:04)
--- NOTE | 2022-02-12 12:05 | MHC.CM.PN ---
Addendum entered by Sanam Brennan 02/12/22 15:42: short term fcility responses 1. [facility] no bed today and will follow up tomorrow, [facility] no bed, liamd[facility] bush and jenni ciwa needs to be o before transfering , [facility] is checking into bed availability today or tomorrow Addendum entered by Sanam Brennan 02/12/22 14:00: kjos[pitalist ordered physical thearpy eval and they recomended short term rehab , several places referrals were sent , [facility] , [facility] , window caser to continue to folllow he did rceive two covid vacination but does nto recal the name at this time Addendum entered by Sanam Brennan 02/12/22 13:08: please see turning sander tender note where patient informs them that he uses 1-2 bundles og heroin and cocaine about a week ago , drug toxicology test was negative for fdrugs case discussed with recovery nurse Original Note: NURSE TMD TEACHER ASSISTANT NTOE ELECTRONIC MEDICAL RECORD REVIEWED ALONG WITH CASE DISCUSSED WITH THE STAFF NURSE THE HOSPITALIST X2 NOTING CIWA OF 6 , PATIENT WILL BE DISCHARGED HOME TODAY DISCHARGE PLAN PER RECOVERY TEAM INFORMATION HE WILL NEED TO FOLLOW UP WITH [facility]( [facility] ) CENTRAL INTAKE [phone] EXT [id number]. THIS INFORMATION WAS LISTED IN HIS DISCHARGE PACKET DISCHARGE PLAN PATIENT DECLINED NURSING HOME LIST OR OTHER VCOMMUNITY SUPPORTS [facility]CP [facility] BUT DOES NTO RECALL THE NAME INSTRUCTED TO [facility] FOR FOLLOW UP TRANSPORTATION PATIENT TO SELF ARRANGE AND IF UNABLE TO WILL LET TMD TEACHER ASSISTANT KNOW
[2022-02-12 13:22] LABS: Hematocrit 37.7 % (42.0-52.0); Hemoglobin 13.5 g/dl (14.0-18.0); Mean Corpuscular HGB Conc 35.8 g/dl (31.0-36.0); Mean Corpuscular Hemoglobin 31.5 pg (27.0-33.0); Mean Corpuscular Volume 87.9 fL (80.0-98.0); Mean Platelet Volume 9.6 fL (9.4-12.4); Red Blood Count 4.29 X10*6/uL (4.60-5.80); Red Cell Distribution Width 13.5 % (11.0-16.0); White Blood Count 4.7 X10*3/uL (4.8-10.8)
[2022-02-12 13:23] LABS: Platelet Count 84 X10*3/uL (160-400)
[2022-02-12 16:10] LABS: Glucose, Whole Blood 161 mg/dL (60-115)
[2022-02-12] MEDS: Insulin Lispro 100 UNIT/ML 3 ML VIAL SUBCUT (16:58)
[2022-02-12 20:30] LABS: Glucose, Whole Blood 123 mg/dL (60-115)
[2022-02-12] MEDS: Insulin Glargine,Hum.rec.anlog 100 UNIT/ML 10 ML VIAL 10 UNIT SUBCUT (21:12)
[2022-02-12] MEDS: Atorvastatin Calcium 40 MG TABLET PO (21:13)
[2022-02-12] MEDS: Melatonin 3 MG TABLET 6 MG PO (21:16)
[2022-02-13] MEDS: 0.9 % Sodium Chloride Flush 3 ML SYRINGE IVFLUSH ×3 (01:09→20:05)
[2022-02-13 03:19] VITALS: BP 121/84; PULSE 80; RESP 18; TEMP 36.5; O2SAT 98
[2022-02-13] MEDS: Enoxaparin Sodium 40 MG/0.4 ML SYRINGE SUBCUT (05:20)
[2022-02-13] MEDS: Omeprazole 40 MG CAPSULE.DR PO (05:20)
[2022-02-13 07:35] LABS: Glucose, Whole Blood 118 mg/dL (60-115)
[2022-02-13 08:00] VITALS: BP 127/83; PULSE 80; RESP 17; TEMP 36; O2SAT 97
[2022-02-13] MEDS: buPROPion HCl XL 300 MG TAB.ER.24H PO (08:41)
[2022-02-13] MEDS: Multivitamin TABLET 1 TAB PO (08:41)
[2022-02-13] MEDS: Folic Acid 1 MG TABLET PO (08:41)
[2022-02-13] MEDS: PHENobarbitaL 30 MG TABLET 60 MG PO (08:41)
[2022-02-13] MEDS: ARIPiprazole 5 MG TABLET PO (08:41)
[2022-02-13] MEDS: Finasteride 5 MG TABLET PO (08:41)
[2022-02-13] MEDS: Spironolactone 25 MG TABLET PO (08:42)
[2022-02-13] MEDS: Thiamine HCL 100 MG TABLET PO (08:42)
[2022-02-13] MEDS: PARoxetine HCL 40 MG TABLET PO (08:42)
[2022-02-13] MEDS: buPROPion HCl XL 150 MG TAB.ER.24H PO (08:43)
[2022-02-13] MEDS: Tamsulosin HCL 0.4 MG CAPSULE 0.8 MG PO (08:43)
[2022-02-13] MEDS: cloNIDine HCL 0.1 MG TABLET PO ×2 (08:43→19:49)
[2022-02-13] MEDS: Famotidine 20 MG TABLET PO ×2 (08:43→19:39)
--- NOTE | 2022-02-13 10:29 | MHC.CM.PN ---
SNF RESPONSES ARE THAT PATIENT NEEDS TO SCORE 0 ON CIWA TO BE CONSIDERED. PATIENT TELLS THIS SIDER MECHANIC THAT HE LONGER LIVES AT A SOBER HOME AND IS HOMELESS RN AWARE CASE MANAGEMENT FOLLOWING 2 FACILITIES ARE CONSIDERING ONCE CIWA IS '0
--- NOTE | 2022-02-13 11:27 | HO.PM.IMPN ---
Subjective Subjective Date of Service: 02/13/22 Interval History: alcohol withdrawal f/u c/o no withdrawal syndrome Review of Systems no shakes, no n/v, +abd pain Physical Exam Vital Signs: Vital Signs: Last Vital Signs Temp 96.8 F 02/13/22 08:00 Pulse 80 02/13/22 08:00 Resp 17 02/13/22 08:00 BP 127/83 02/13/22 08:00 Pulse Ox 97 02/13/22 08:00 O2 Del Method 02/13/22 08:00 BMI result Body Mass Index 33.0 Const: Other: General: AO X 3, no acute distress Resp: CTA bilateral CVS: S1,S2,RRR GI: +BS, NT, no distention Skin: No rash Neuro: motor grossly intact Psych: appropriate affect Objective Data Active Medications Albuterol Sulfate (Albuterol Sulfate 90 Mcg 8 Gm Inhaler) 1 puff INHALE QID PRN PRN Reason: shortness of breath or wheezing Aripiprazole (Aripiprazole 5 Mg Tablet) 5 mg PO DAILY [facility] Last Admin: 02/13/22 08:41 Dose: 5 mg Documented By: YADY Atorvastatin Calcium (Atorvastatin Calcium 40 Mg Tablet) 40 mg PO BEDTIME [facility] Last Admin: 02/12/22 21:13 Dose: 40 mg Documented By: ANDRE Bupropion HCl (Bupropion Hcl Xl 300 Mg Tab.Er.24h) 300 mg PO DAILY [facility] Last Admin: 02/13/22 08:41 Dose: 300 mg Documented By: YADY Bupropion HCl (Bupropion Hcl Xl 150 Mg Tab.Er.24h) 150 mg PO DAILY [facility] Last Admin: 02/13/22 08:43 Dose: 150 mg Documented By: YADY Clonidine HCl (Clonidine Hcl 0.1 Mg Tablet) 0.1 mg PO BID [facility]; Protocol Last Admin: 02/13/22 08:43 Dose: 0.1 mg Documented By: YADY Dextrose (Dextrose 50 % 25 Gm/50 Ml Syringe) 25 gm IVPUSH Q15M PRN; Protocol PRN Reason: per Hypoglycemia Standing Ord. Docusate Sodium (Docusate Sodium 100 Mg Capsule) 100 mg PO BID PRN PRN Reason: constipation Last Admin: 02/11/22 16:45 Dose: 100 mg Documented By: HARSHAD Enoxaparin Sodium (Enoxaparin Sodium 40 Mg/0.4 Ml Syringe) 40 mg SUBCUT Q24H [facility] Last Admin: 02/13/22 05:20 Dose: 40 mg Documented By: ANDRE Famotidine (Famotidine 20 Mg Tablet) 20 mg PO BID [facility] Last Admin: 02/13/22 08:43 Dose: 20 mg Documented By: YADY Finasteride (Finasteride 5 Mg Tablet) 5 mg PO DAILY [facility] Last Admin: 02/13/22 08:41 Dose: 5 mg Documented By: YADY Folic Acid (Folic Acid 1 Mg Tablet) 1 mg PO DAILY [facility] Stop: 02/14/22 08:59 Last Admin: 02/13/22 08:41 Dose: 1 mg Documented By: YADY Furosemide (Furosemide 40 Mg Tablet) 40 mg PO DAILY [facility]; Protocol Last Admin: 02/13/22 09:19 Dose: Not Given Documented By: YADY Non-Admin Reason: Per MD Glucose (Glucose Gel 15 Gm Gel..Gram.) 15 gm PO Q15M PRN; Protocol PRN Reason: per Hypoglycemia Standing Ord. Hydroxyzine HCl (Hydroxyzine Hcl 25 Mg Tablet) 25 mg PO Q4H PRN PRN Reason: Anxiety Insulin Glargine (Insulin Glargine,Hum.Rec.Anlog 100 Unit/Ml 10 Ml Vial) 10 unit SUBCUT BEDTIME [facility] Last Admin: 02/12/22 21:12 Dose: 10 unit Documented By: ANDRE Insulin Human Lispro (Insulin Lispro 100 Unit/Ml 3 Ml Vial) 0 unit SUBCUT QIDACHS [facility]; Protocol Last Admin: 02/13/22 07:48 Dose: Not Given Documented By: YADY Non-Admin Reason: No Insulin Coverage Melatonin (Melatonin 3 Mg Tablet) 6 mg PO BEDTIME PRN PRN Reason: Insomnia Last Admin: 02/12/22 21:16 Dose: 6 mg Documented By: ANDRE Multivitamins/Vitamin C (Multivitamin Tablet) 1 tab PO DAILY [facility] Stop: 02/14/22 08:59 Last Admin: 02/13/22 08:41 Dose: 1 tab Documented By: YADY Omeprazole (Omeprazole 40 Mg Elsa.) 40 mg PO DAILY@0630 [facility] Last Admin: 02/13/22 05:20 Dose: 40 mg Documented By: ANDRE Paroxetine HCl (Paroxetine Hcl 40 Mg Tablet) 40 mg PO DAILY [facility] Last Admin: 02/13/22 08:42 Dose: 40 mg Documented By: YADY Pharmacy Consult (Consult Rx Perform Med Rec) 1 each MISCELLANE ONCE PRN PRN Reason: Consult order Pharmacy Consult (Consult Rx Etoh Phenob Po Dose) 1 each MISCELLANE ONCE PRN; Protocol PRN Reason: Consult order Phenobarbital (Phenobarbital 30 Mg Tablet) 30 mg PO BID [facility] Stop: 02/15/22 09:01 Phenobarbital (Phenobarbital 30 Mg Tablet) 30 mg PO BEDTIME [facility] Stop: 02/16/22 21:01 Potassium Chloride (Potassium Chloride Er 10 Meq Capsule.Er) 10 meq PO DAILY [facility] Last Admin: 02/13/22 08:43 Dose: 10 meq Documented By: YADY Senna (Sennosides 8.6 Mg Tablet) 17.2 mg PO BEDTIME PRN PRN Reason: Constipation Sodium Chloride (0.9 % Sodium Chloride Flush 3 Ml Syringe) 3 ml IVFLUSH QSHIFT [facility] Last Admin: 02/13/22 10:21 Dose: Not Given Documented By: YADY Non-Admin Reason: Patient Refused Spironolactone (Spironolactone 25 Mg Tablet) 25 mg PO DAILY [facility]; Protocol Last Admin: 02/13/22 08:42 Dose: 25 mg Documented By: YADY Tamsulosin HCl (Tamsulosin Hcl 0.4 Mg Capsule) 0.8 mg PO DAILY [facility] Last Admin: 02/13/22 08:43 Dose: 0.8 mg Documented By: YADY Thiamine HCl (Thiamine Hcl 100 Mg Tablet) 100 mg PO DAILY [facility] Stop: 02/14/22 08:59 Last Admin: 02/13/22 08:42 Dose: 100 mg Documented By: YADY Labs CBC & Chem 7: 02/12/22 12:36 02/11/22 05:52 Labs: Laboratory Results - last 24 hr 02/12/22 02/12/22 02/12/22 11:31 12:36 15:55 MCV 87.9 MCH 31.5 MCHC 35.8 RDW 13.5 Plt Count 84 L D MPV 9.6 Absolute Nucleated RBC 0.000 Nucleated RBC % (auto) 0.0 POC Glucose 127 H 161 H 02/12/22 02/13/22 20:24 07:30 MCV MCH MCHC RDW Plt Count MPV Absolute Nucleated RBC Nucleated RBC % (auto) POC Glucose 123 H 118 H Assessment and Plan (1) Alcohol use disorder, moderate, dependence: Status: Acute (2) Alcoholic gastritis: Status: Acute (3) Alcohol withdrawal: Status: Acute Plan 56-year-old male with a past medical history of hypertension, hyperlipidemia, diabetes, COPD, CHF, interstitial lung disease, history of ARDS, obstructive sleep apnea, obesity, history of traumatic brain injury, liver cirrhosis, anxiety, depression presented to the hospital today with a chief complaint of alcohol detox.? Noted to have following conditions Alchol withdrawal--continue Phenobarbital. There are no signs of withdrawal, doesn't need CIWA Alcoholic gastritis: Pepcid.? Advanced diet as tolerated. Zofra for n/v Mild transaminitis:? Likely in the setting of alcohol use.? Trend liver enzymes. Dark stool:? Stool guaiac negative and H&H stable. check H/H if trending down, gi eval History of liver cirrhosis: Continue home Lasix, Aldactone.? History of BPH: Continue home Flomax History of anxiety/depression:? Continue home clonidine, bupropion. History of diabetes:? Will give the patient on Lantus 10 units and insulin sliding scale.? Patient was on 40 units of Lantus at home. History of opiate dependence: Patient?reports that he has not been on Suboxone?for past 6-8 months History of COPD: Stable Inpatient d/t alcohol withdrawal and need for rehab not available until tuesday Quality Stroke Does the patient have a stroke diagnosis?: No VTE Prior VTE?: No VTE Risk Level:: Medical - moderate - high VTE Device Contraindication: Treatment Not Indicated VTE Drug Contraindication: N/A - Med Ordered
[2022-02-13 11:34] VITALS: BP 112/75; PULSE 87; RESP 17; TEMP 36.3; O2SAT 97
[2022-02-13 11:41] LABS: Glucose, Whole Blood 133 mg/dL (60-115)
[2022-02-13 12:09] LABS: Blood Urea Nitrogen 9 mg/dL (9-16); Creatinine Clr Calc Pharmacy 104.7; Estimated Glomerular Filt Rate > 60; Glucose Random 139 mg/dL (60-115)
--- NOTE | 2022-02-13 12:23 | MHC.CM.PN ---
CALL FROM HCP [place] PATIENT GIVES PERMISSION TO SPEAK WITH DAUGHTER (NOT NIECE PREVIOUSLY NOTED) DAUGHTER AWARE OF ATTEMPTS TO SECURE A BED OFFER. SHE ASK FOR AN UPDATE ONCE THIS DOES OCCUR.
--- NOTE | 2022-02-13 12:27 | MHC.RECOVSUP ---
Recovery Support note: This verse writer met with patient to discuss CSS referrals. Discussed with patient that the plan is now for him to go to a SNF. Patient provided with numbers to contact CSS facilities while he is in the SNF so that he can plan an admission to a CSS if he chooses to do so. Patient provided with contact information for CSS facilities and the contact information for the Recovery Support Team in the event that he needs assistance with referring himself to a CSS. Patient reports no questions at this time.
[2022-02-13 12:32] LABS: Anion Gap 13 (12-20); Carbon Dioxide 30 mmol/L (22-29); Chloride 99 mmol/L (96-108); Potassium 2.9 mmol/L (3.3-5.1); Sodium 139 mmol/L (135-145)
[2022-02-13 15:27] LABS: Glucose, Whole Blood 134 mg/dL (60-115)
[2022-02-13 15:29] VITALS: BP 108/62; PULSE 86; RESP 17; TEMP 36.6; O2SAT 96
[2022-02-13] MEDS: traMADoL HCL 50 MG TABLET PO (17:46)
[2022-02-13] MEDS: Atorvastatin Calcium 40 MG TABLET PO (19:39)
[2022-02-13] MEDS: PHENobarbitaL 30 MG TABLET PO (19:39)
[2022-02-13] MEDS: Insulin Glargine,Hum.rec.anlog 100 UNIT/ML 10 ML VIAL 10 UNIT SUBCUT (19:39)
[2022-02-13] MEDS: Insulin Lispro 100 UNIT/ML 3 ML VIAL SUBCUT (19:44)
[2022-02-13] MEDS: Melatonin 3 MG TABLET 6 MG PO (19:50)
[2022-02-13 19:51] VITALS: BP 116/67; PULSE 83; RESP 17; TEMP 36; O2SAT 97
[2022-02-13 19:58] LABS: Glucose, Whole Blood 161 mg/dL (60-115)
[2022-02-13 23:15] VITALS: BP 107/65; PULSE 73; RESP 18; TEMP 36.1; O2SAT 99
[2022-02-14 03:15] VITALS: BP 126/65; PULSE 70; RESP 18; TEMP 36.1; O2SAT 96
[2022-02-14] MEDS: Enoxaparin Sodium 40 MG/0.4 ML SYRINGE SUBCUT (05:35)
[2022-02-14] MEDS: Omeprazole 40 MG CAPSULE.DR PO (05:36)
[2022-02-14 07:23] VITALS: BP 125/74; PULSE 69; RESP 18; TEMP 36.4; O2SAT 98
[2022-02-14 07:31] LABS: Glucose, Whole Blood 164 mg/dL (60-115)
[2022-02-14] MEDS: Spironolactone 25 MG TABLET PO (07:53)
[2022-02-14] MEDS: Famotidine 20 MG TABLET PO ×2 (07:53→20:11)
[2022-02-14] MEDS: PARoxetine HCL 40 MG TABLET PO (07:53)
[2022-02-14] MEDS: Finasteride 5 MG TABLET PO (07:53)
[2022-02-14] MEDS: ARIPiprazole 5 MG TABLET PO (07:53)
[2022-02-14] MEDS: cloNIDine HCL 0.1 MG TABLET PO ×2 (07:53→20:11)
[2022-02-14] MEDS: Tamsulosin HCL 0.4 MG CAPSULE 0.8 MG PO (07:54)
[2022-02-14] MEDS: PHENobarbitaL 30 MG TABLET PO ×2 (07:54→20:12)
[2022-02-14] MEDS: buPROPion HCl XL 150 MG TAB.ER.24H PO (07:54)
[2022-02-14] MEDS: buPROPion HCl XL 300 MG TAB.ER.24H PO (07:54)
[2022-02-14] MEDS: 0.9 % Sodium Chloride Flush 3 ML SYRINGE IVFLUSH ×3 (07:54→20:15)
[2022-02-14] MEDS: Insulin Lispro 100 UNIT/ML 3 ML VIAL SUBCUT ×2 (07:55→16:45)
[2022-02-14] MEDS: Furosemide 40 MG TABLET PO (07:59)
--- NOTE | 2022-02-14 08:22 | P.PNIM_ITS ---
Subjective Subjective Date of Service: 02/14/22 Interval History: alcohol withdrawal f/u c/o no withdrawal syndrome and feels better Review of Systems no shakes, no n/v, +abd pain Physical Exam Vital Signs: Vital Signs: Last Vital Signs Temp 97.6 F 02/14/22 07:23 Pulse 69 02/14/22 07:23 Resp 18 02/14/22 07:23 BP 125/74 02/14/22 07:23 Pulse Ox 98 02/14/22 07:23 O2 Del Method 02/14/22 07:23 BMI result Body Mass Index 33.0 Const: Other: General: AO X 3, no acute distress Resp: CTA bilateral CVS: S1,S2,RRR GI: +BS, NT, no distention Skin: No rash Neuro: motor grossly intact Psych: appropriate affect Objective Data Active Medications Albuterol Sulfate (Albuterol Sulfate 90 Mcg 8 Gm Inhaler) 1 puff INHALE QID PRN PRN Reason: shortness of breath or wheezing Aripiprazole (Aripiprazole 5 Mg Tablet) 5 mg PO DAILY [facility] Last Admin: 02/14/22 07:53 Dose: 5 mg Documented By: YADY Atorvastatin Calcium (Atorvastatin Calcium 40 Mg Tablet) 40 mg PO BEDTIME [facility] Last Admin: 02/13/22 19:39 Dose: 40 mg Documented By: ANDRE Bupropion HCl (Bupropion Hcl Xl 300 Mg Tab.Er.24h) 300 mg PO DAILY [facility] Last Admin: 02/14/22 07:54 Dose: 300 mg Documented By: YADY Bupropion HCl (Bupropion Hcl Xl 150 Mg Tab.Er.24h) 150 mg PO DAILY [facility] Last Admin: 02/14/22 07:54 Dose: 150 mg Documented By: YADY Clonidine HCl (Clonidine Hcl 0.1 Mg Tablet) 0.1 mg PO BID [facility]; Protocol Last Admin: 02/14/22 07:53 Dose: 0.1 mg Documented By: YADY Dextrose (Dextrose 50 % 25 Gm/50 Ml Syringe) 25 gm IVPUSH Q15M PRN; Protocol PRN Reason: per Hypoglycemia Standing Ord. Docusate Sodium (Docusate Sodium 100 Mg Capsule) 100 mg PO BID PRN PRN Reason: constipation Last Admin: 02/11/22 16:45 Dose: 100 mg Documented By: HARSHAD Enoxaparin Sodium (Enoxaparin Sodium 40 Mg/0.4 Ml Syringe) 40 mg SUBCUT Q24H [facility] Last Admin: 02/14/22 05:35 Dose: 40 mg Documented By: ANDRE Famotidine (Famotidine 20 Mg Tablet) 20 mg PO BID [facility] Last Admin: 02/14/22 07:53 Dose: 20 mg Documented By: YADY Finasteride (Finasteride 5 Mg Tablet) 5 mg PO DAILY [facility] Last Admin: 02/14/22 07:53 Dose: 5 mg Documented By: YADY Folic Acid (Folic Acid 1 Mg Tablet) 1 mg PO DAILY [facility] Stop: 02/14/22 08:59 Last Admin: 02/13/22 08:41 Dose: 1 mg Documented By: YADY Furosemide (Furosemide 40 Mg Tablet) 40 mg PO DAILY [facility]; Protocol Last Admin: 02/14/22 07:59 Dose: 40 mg Documented By: YADY Glucose (Glucose Gel 15 Gm Gel..Gram.) 15 gm PO Q15M PRN; Protocol PRN Reason: per Hypoglycemia Standing Ord. Hydroxyzine HCl (Hydroxyzine Hcl 25 Mg Tablet) 25 mg PO Q4H PRN PRN Reason: Anxiety Insulin Glargine (Insulin Glargine,Hum.Rec.Anlog 100 Unit/Ml 10 Ml Vial) 10 unit SUBCUT BEDTIME [facility] Last Admin: 02/13/22 19:39 Dose: 10 unit Documented By: ANDRE Insulin Human Lispro (Insulin Lispro 100 Unit/Ml 3 Ml Vial) 0 unit SUBCUT QIDACHS [facility]; Protocol Last Admin: 02/14/22 07:55 Dose: 2 unit Documented By: YADY Melatonin (Melatonin 3 Mg Tablet) 6 mg PO BEDTIME PRN PRN Reason: Insomnia Last Admin: 02/13/22 19:50 Dose: 6 mg Documented By: ANDRE Multivitamins/Vitamin C (Multivitamin Tablet) 1 tab PO DAILY [facility] Stop: 02/14/22 08:59 Last Admin: 02/13/22 08:41 Dose: 1 tab Documented By: YADY Omeprazole (Omeprazole 40 Mg Capsule.) 40 mg PO DAILY@0630 [facility] Last Admin: 02/14/22 05:36 Dose: 40 mg Documented By: ANDRE Paroxetine HCl (Paroxetine Hcl 40 Mg Tablet) 40 mg PO DAILY [facility] Last Admin: 02/14/22 07:53 Dose: 40 mg Documented By: YADY Pharmacy Consult (Consult Rx Perform Med Rec) 1 each MISCELLANE ONCE PRN PRN Reason: Consult order Pharmacy Consult (Consult Rx Etoh Phenob Po Dose) 1 each MISCELLANE ONCE PRN; Protocol PRN Reason: Consult order Phenobarbital (Phenobarbital 30 Mg Tablet) 30 mg PO BID [facility] Stop: 02/15/22 09:01 Last Admin: 02/14/22 07:54 Dose: 30 mg Documented By: YADY Phenobarbital (Phenobarbital 30 Mg Tablet) 30 mg PO BEDTIME [facility] Stop: 02/16/22 21:01 Potassium Chloride (Potassium Chloride Er 10 Meq Capsule.Er) 10 meq PO DAILY [facility] Last Admin: 02/14/22 07:53 Dose: 10 meq Documented By: YADY Senna (Sennosides 8.6 Mg Tablet) 17.2 mg PO BEDTIME PRN PRN Reason: Constipation Sodium Chloride (0.9 % Sodium Chloride Flush 3 Ml Syringe) 3 ml IVFLUSH QSHIFT [facility] Last Admin: 02/14/22 07:54 Dose: 3 ml Documented By: YADY Spironolactone (Spironolactone 25 Mg Tablet) 25 mg PO DAILY [facility]; Protocol Last Admin: 02/14/22 07:53 Dose: 25 mg Documented By: YADY Tamsulosin HCl (Tamsulosin Hcl 0.4 Mg Capsule) 0.8 mg PO DAILY [facility] Last Admin: 02/14/22 07:54 Dose: 0.8 mg Documented By: YADY Thiamine HCl (Thiamine Hcl 100 Mg Tablet) 100 mg PO DAILY [facility] Stop: 02/14/22 08:59 Last Admin: 02/13/22 08:42 Dose: 100 mg Documented By: YADY Tramadol HCl (Tramadol Hcl 50 Mg Tablet) 50 mg PO Q6H PRN PRN Reason: Pain, Severe (Pain Scale 7-10) Last Admin: 02/13/22 17:46 Dose: 50 mg Documented By: YADY Labs CBC & Chem 7: 02/12/22 12:36 02/13/22 11:28 Labs: Laboratory Results - last 24 hr 02/13/22 02/13/22 02/13/22 11:28 11:37 15:09 Anion Gap 13 Estim Creat Clear Calc 104.7 Estimated GFR > 60 POC Glucose 133 H 134 H Random Glucose 139 H Calcium 9.0 02/13/22 02/14/22 18:53 07:27 Anion Gap Estim Creat Clear Calc Estimated GFR POC Glucose 161 H 164 H Random Glucose Calcium Assessment and Plan (1) Alcoholic gastritis: Status: Acute (2) Alcohol withdrawal: Status: Acute Plan 56-year-old male with a past medical history of hypertension, hyperlipidemia, diabetes, COPD, CHF, interstitial lung disease, history of ARDS, obstructive sleep apnea, obesity, history of traumatic brain injury, liver cirrhosis, anxiety, depression presented to the hospital today with a chief complaint of alcohol detox.? Noted to have following conditions Alchol withdrawal--continue Phenobarbital. There are no signs of withdrawal, doesn't need CIWA Alcoholic gastritis: Pepcid.? resolved. Zofra for n/v Mild transaminitis: d/t alcohol Hypokalemia--oral replacement Dark stool:? Stool guaiac negative and H&H stable. check H/H if trending down, gi eval History of liver cirrhosis: Continue home Lasix, Aldactone.? History of BPH: Continue home Flomax History of anxiety/depression:? Continue home clonidine, bupropion. History of diabetes:? Will give the patient on Lantus 10 units and insulin sliding scale.? Patient was on 40 units of Lantus at home. History of opiate dependence: Patient?reports that he has not been on Suboxone? for past 6-8 months History of COPD: Stable Inpatient d/t alcohol withdrawal and need for rehab not available until tuesday Quality Stroke Does the patient have a stroke diagnosis?: No VTE Prior VTE?: No VTE Risk Level:: Medical - moderate - high VTE Device Contraindication: Treatment Not Indicated VTE Drug Contraindication: N/A - Med Ordered
[2022-02-14] MEDS: Potassium Chloride ER 20 MEQ TAB.ER.PRT 40 MEQ PO ×2 (09:12→20:11)
[2022-02-14 11:35] LABS: Glucose, Whole Blood 146 mg/dL (60-115)
[2022-02-14 12:00] VITALS: BP 101/55; PULSE 97; RESP 18; TEMP 36.6; O2SAT 96
[2022-02-14 15:34] LABS: Glucose, Whole Blood 152 mg/dL (60-115)
[2022-02-14 15:46] VITALS: BP 130/77; PULSE 94; RESP 18; TEMP 36.3; O2SAT 97
[2022-02-14 19:20] LABS: Glucose, Whole Blood 124 mg/dL (60-115)
[2022-02-14 19:28] VITALS: BP 122/80; PULSE 85; RESP 18; TEMP 36.2; O2SAT 99
[2022-02-14] MEDS: Atorvastatin Calcium 40 MG TABLET PO (20:11)
[2022-02-14] MEDS: Melatonin 3 MG TABLET 6 MG PO (20:11)
[2022-02-14] MEDS: traMADoL HCL 50 MG TABLET PO (20:11)
[2022-02-14] MEDS: Insulin Glargine,Hum.rec.anlog 100 UNIT/ML 10 ML VIAL 10 UNIT SUBCUT (20:12)
[2022-02-14 23:22] VITALS: BP 121/81; PULSE 78; RESP 18; TEMP 36.4; O2SAT 96
[2022-02-15 03:17] VITALS: BP 119/78; PULSE 74; RESP 18; TEMP 35.8; O2SAT 99
[2022-02-15] MEDS: Omeprazole 40 MG CAPSULE.DR PO (05:50)
[2022-02-15] MEDS: Enoxaparin Sodium 40 MG/0.4 ML SYRINGE SUBCUT (05:50)
[2022-02-15 07:16] VITALS: BP 120/74; PULSE 77; RESP 17; TEMP 36.9; O2SAT 99
[2022-02-15 07:23] LABS: Glucose, Whole Blood 121 mg/dL (60-115)
[2022-02-15] MEDS: Famotidine 20 MG TABLET PO (08:46)
[2022-02-15] MEDS: PHENobarbitaL 30 MG TABLET PO (08:46)
[2022-02-15] MEDS: Potassium Chloride ER 20 MEQ TAB.ER.PRT 40 MEQ PO (08:46)
[2022-02-15] MEDS: Furosemide 40 MG TABLET PO (08:47)
[2022-02-15] MEDS: 0.9 % Sodium Chloride Flush 3 ML SYRINGE IVFLUSH (08:47)
[2022-02-15] MEDS: ARIPiprazole 5 MG TABLET PO (08:47)
[2022-02-15] MEDS: cloNIDine HCL 0.1 MG TABLET PO (08:47)
[2022-02-15] MEDS: PARoxetine HCL 40 MG TABLET PO (08:47)
[2022-02-15] MEDS: Tamsulosin HCL 0.4 MG CAPSULE 0.8 MG PO (08:47)
[2022-02-15] MEDS: buPROPion HCl XL 150 MG TAB.ER.24H PO (08:47)
[2022-02-15] MEDS: Spironolactone 25 MG TABLET PO (08:47)
[2022-02-15] MEDS: Finasteride 5 MG TABLET PO (08:47)
[2022-02-15] MEDS: buPROPion HCl XL 300 MG TAB.ER.24H PO (08:47)
--- NOTE | 2022-02-15 09:29 | HO.PM.IMPN ---
Subjective Subjective Date of Service: 02/15/22 Interval History: cc:alcohol withdrawal f/u c/o no withdrawal syndrome and feels good Review of Systems no shakes, no n/v, +abd pain Physical Exam Vital Signs: Vital Signs: Last Vital Signs Temp 98.4 F 02/15/22 07:16 Pulse 77 02/15/22 07:16 Resp 17 02/15/22 07:16 BP 120/74 02/15/22 07:16 Pulse Ox 99 02/15/22 07:16 O2 Del Method 02/15/22 07:16 BMI result Body Mass Index 33.0 Const: Other: General: AO X 3, no acute distress Resp: CTA bilateral CVS: S1,S2,RRR GI: +BS, NT, no distention Skin: No rash Neuro: motor grossly intact Psych: appropriate affect Objective Data Active Medications Albuterol Sulfate (Albuterol Sulfate 90 Mcg 8 Gm Inhaler) 1 puff INHALE QID PRN PRN Reason: shortness of breath or wheezing Aripiprazole (Aripiprazole 5 Mg Tablet) 5 mg PO DAILY [facility] Last Admin: 02/15/22 08:47 Dose: 5 mg Documented By: CLEO Atorvastatin Calcium (Atorvastatin Calcium 40 Mg Tablet) 40 mg PO BEDTIME [facility] Last Admin: 02/14/22 20:11 Dose: 40 mg Documented By: KAILA Bupropion HCl (Bupropion Hcl Xl 300 Mg Tab.Er.24h) 300 mg PO DAILY [facility] Last Admin: 02/15/22 08:47 Dose: 300 mg Documented By: CLEO Bupropion HCl (Bupropion Hcl Xl 150 Mg Tab.Er.24h) 150 mg PO DAILY [facility] Last Admin: 02/15/22 08:47 Dose: 150 mg Documented By: CLEO Clonidine HCl (Clonidine Hcl 0.1 Mg Tablet) 0.1 mg PO BID [facility]; Protocol Last Admin: 02/15/22 08:47 Dose: 0.1 mg Documented By: CLEO Dextrose (Dextrose 50 % 25 Gm/50 Ml Syringe) 25 gm IVPUSH Q15M PRN; Protocol PRN Reason: per Hypoglycemia Standing Ord. Docusate Sodium (Docusate Sodium 100 Mg Capsule) 100 mg PO BID PRN PRN Reason: constipation Last Admin: 02/11/22 16:45 Dose: 100 mg Documented By: HARSHAD Enoxaparin Sodium (Enoxaparin Sodium 40 Mg/0.4 Ml Syringe) 40 mg SUBCUT Q24H [facility] Last Admin: 02/15/22 05:50 Dose: 40 mg Documented By: KAILA Famotidine (Famotidine 20 Mg Tablet) 20 mg PO BID [facility] Last Admin: 02/15/22 08:46 Dose: 20 mg Documented By: CLEO Finasteride (Finasteride 5 Mg Tablet) 5 mg PO DAILY [facility] Last Admin: 02/15/22 08:47 Dose: 5 mg Documented By: CLEO Furosemide (Furosemide 40 Mg Tablet) 40 mg PO DAILY [facility]; Protocol Last Admin: 02/15/22 08:47 Dose: 40 mg Documented By: CLEO Glucose (Glucose Gel 15 Gm Gel..Gram.) 15 gm PO Q15M PRN; Protocol PRN Reason: per Hypoglycemia Standing Ord. Hydroxyzine HCl (Hydroxyzine Hcl 25 Mg Tablet) 25 mg PO Q4H PRN PRN Reason: Anxiety Insulin Glargine (Insulin Glargine,Hum.Rec.Anlog 100 Unit/Ml 10 Ml Vial) 10 unit SUBCUT BEDTIME [facility] Last Admin: 02/14/22 20:12 Dose: 10 unit Documented By: KAILA Insulin Human Lispro (Insulin Lispro 100 Unit/Ml 3 Ml Vial) 0 unit SUBCUT QIDACHS [facility]; Protocol Last Admin: 02/15/22 07:31 Dose: Not Given Documented By: CLEO Non-Admin Reason: No Insulin Coverage Melatonin (Melatonin 3 Mg Tablet) 6 mg PO BEDTIME PRN PRN Reason: Insomnia Last Admin: 02/14/22 20:11 Dose: 6 mg Documented By: KAILA Omeprazole (Omeprazole 40 Mg Capsule.) 40 mg PO DAILY@0630 [facility] Last Admin: 02/15/22 05:50 Dose: 40 mg Documented By: KAILA Paroxetine HCl (Paroxetine Hcl 40 Mg Tablet) 40 mg PO DAILY [facility] Last Admin: 02/15/22 08:47 Dose: 40 mg Documented By: CLEO Pharmacy Consult (Consult Rx Perform Med Rec) 1 each MISCELLANE ONCE PRN PRN Reason: Consult order Pharmacy Consult (Consult Rx Etoh Phenob Po Dose) 1 each MISCELLANE ONCE PRN; Protocol PRN Reason: Consult order Phenobarbital (Phenobarbital 30 Mg Tablet) 30 mg PO BEDTIME [facility] Stop: 02/16/22 21:01 Potassium Chloride (Potassium Chloride Er 10 Meq Capsule.Er) 10 meq PO DAILY [facility] Last Admin: 02/15/22 08:47 Dose: 10 meq Documented By: CLEO Potassium Chloride (Potassium Chloride Er 20 Meq Tab.Er.Prt) 40 meq PO BID [facility] Stop: 02/15/22 21:01 Last Admin: 02/15/22 08:46 Dose: 40 meq Documented By: CLEO Senna (Sennosides 8.6 Mg Tablet) 17.2 mg PO BEDTIME PRN PRN Reason: Constipation Sodium Chloride (0.9 % Sodium Chloride Flush 3 Ml Syringe) 3 ml IVFLUSH QSHIFT [facility] Last Admin: 02/15/22 08:47 Dose: 3 ml Documented By: CLEO Spironolactone (Spironolactone 25 Mg Tablet) 25 mg PO DAILY [facility]; Protocol Last Admin: 02/15/22 08:47 Dose: 25 mg Documented By: CLEO Tamsulosin HCl (Tamsulosin Hcl 0.4 Mg Capsule) 0.8 mg PO DAILY [facility] Last Admin: 02/15/22 08:47 Dose: 0.8 mg Documented By: CLEO Tramadol HCl (Tramadol Hcl 50 Mg Tablet) 50 mg PO Q6H PRN PRN Reason: Pain, Severe (Pain Scale 7-10) Last Admin: 02/14/22 20:11 Dose: 50 mg Documented By: KAILA Labs CBC & Chem 7: 02/12/22 12:36 02/13/22 11:28 Labs: Laboratory Results - last 24 hr 02/14/22 02/14/22 02/14/22 11:31 15:17 19:09 POC Glucose 146 H 152 H 124 H 02/15/22 07:18 POC Glucose 121 H Assessment and Plan (1) Alcoholic gastritis: Status: Acute (2) Alcohol withdrawal: Status: Acute Plan A 56-year-old male with a past medical history of hypertension, hyperlipidemia, diabetes, COPD, CHF, interstitial lung disease, history of ARDS, obstructive sleep apnea, obesity, history of traumatic brain injury, liver cirrhosis, anxiety, depression presented to the hospital today with a chief complaint of alcohol detox.? Noted to have the following conditions #Alcohol withdrawal--continue Phenobarbital. There are no signs of withdrawal, doesn't need CIWA #Alcoholic gastritis: resolved. continue Pepcid. Zofran for n/v Mild transaminitis: d/t alcohol #Hypokalemia--oral replacement Dark stool:? Stool guaiac negative and H&H stable. check H/H if trending down, gi eval #History of liver cirrhosis: Continue home Lasix, Aldactone.? #History of BPH: Continue home Flomax #History of anxiety/depression:? Continue home clonidine and bupropion. #History of diabetes:? Will give the patient on Lantus 10 units and an insulin sliding scale.? The patient was on 40 units of Lantus at home. #History of opiate dependence: The patient reports that he has not been on Suboxone for the past 6-8 months #History of COPD: Stable Inpatient d/t alcohol withdrawal and need for rehab not available until possibly today To short term rehab today if bed available Quality Stroke Does the patient have a stroke diagnosis?: No VTE Prior VTE?: No VTE Risk Level:: Medical - moderate - high VTE Device Contraindication: Treatment Not Indicated VTE Drug Contraindication: N/A - Med Ordered
[2022-02-15 11:23] VITALS: BP 132/85; PULSE 89; RESP 17; TEMP 36.5; O2SAT 97
[2022-02-15 11:30] LABS: Glucose, Whole Blood 122 mg/dL (60-115)
[2022-02-15 13:11] LABS: COVID-19 Test Negative (Negative); IDNOW Serial# 16C4AD1C
[2022-02-15 14:04] LABS: Anion Gap 13 (12-20); Carbon Dioxide 27 mmol/L (22-29); Chloride 102 mmol/L (96-108); Potassium 3.7 mmol/L (3.3-5.1); Sodium 138 mmol/L (135-145)
--- NOTE | 2022-02-15 14:32 | PM.DS ---
DS: Providers Provider Date of Service: 02/15/22 Date of admission: 02/11/22 02:20 Primary care physician: Unknown Physician Consults: 02/12/22 08:18 Consult to Care Team Routine Comment: Reason for consultation: Alcohol dependency DS: Diagnosis Discharge Diagnosis (1) Alcohol use disorder, moderate, dependence: Status: Acute (2) Alcoholic gastritis: Status: Acute (3) Alcohol withdrawal: Status: Acute DS: Summary Hospital Course Hospital Course: Chief Complaint: Alcohol abuse/withdrawal/nausea/vomiting 56-year-old male with a past medical history of hypertension, hyperlipidemia, diabetes, COPD, CHF, interstitial lung disease, history of ARDS, obstructive sleep apnea, obesity, history of traumatic brain injury, liver cirrhosis, anxiety, depression presented to the hospital today with a chief complaint of alcohol detox.? Patient reported that over the past 3-4 days he has been having nausea vomiting and abdominal discomfort; also reports couple of episodes of black stool.? Denies any blood in the vomitus.? Mentions burning in the chest because of the vomiting.? Mentions he drinks alcohol on a regular basis, last drink was 2 days ago.? Denies any prior history of alcohol withdrawal seizures.? Denies any fever chills cough or sputum production.? Denies any urinary symptoms.? Review of all other systems is negative except mentioned above ER course: Per ER team patient stool guaiac was negative; patient noted to be hypertensive, tachycardic, mildly tremulous; on labs noted to have stable hemoglobin; mild transaminitis.? patient was started on phenobarb protocol.? Admitted to the hospital for further management Hospital course: He was admitted for for alcohol withdrawa and alcoholic gastritis and treated with Phenobarbital, folate and thaimine replacment. He presently shows no sings of symptoms of alcohol withdrawal. He had some abdominal pain attributed to alcoholic gastritis, a CT of abdomen and pelvis showed no acute finding. Gastritis treated with IV pepcid with improvement and will continue pepcid and omeprazol. Patient is deconditioned, weak and PT is recommending short term rehab for less than 30 days. To continue usual meds for his chronic issues mentioned above Time Spent with Patient Time attestation: Total time spent providing and/or coordinating discharge services: Discharge coordination time: Greater than 30 minutes Quality: Safe Use of Opioids Does Pt have an Active Cancer Diagnosis on the Problem List?: No Quality: Stroke Does the patient have a stroke diagnosis?: No Physical Exam Vital Signs: Vital Signs: Last Vital Signs Temp 96.8 F 02/13/22 08:00 Pulse 80 02/13/22 08:00 Resp 17 02/13/22 08:00 BP 127/83 02/13/22 08:00 Pulse Ox 97 02/13/22 08:00 O2 Del Method 02/13/22 08:00 BMI result Body Mass Index 33.0 Const: Other: Vital Signs:?? Last Vital Signs Temp ? 98.4 F? 02/15/22 07 :16 Pulse? 77? 02/15/22 07:16 Resp ? 17? 02/15 07:16 BP ? 120/ 74? 07:16 Puls e Ox ? 9 9? 02/15/22 07:16 O 2 Del Method? 02/15/22 07:16 BMI result Mariusz dy Mass Index ? 33.0? Exam General: AO X 3, no acute distress Resp:? CTA bilate ral CVS: S1,S2,RRR GI: +BS, NT, no d istention Skin: No rash Neuro:? madai r grossly intact P sych: appropriate affect DS: Data Data Completed and Pending Labs on day of discharge: Laboratory Results - last 24 hr 02/12/22 02/12/22 02/12/22 11:31 12:36 15:55 WBC 4.7 L RBC 4.29 L Hgb 13.5 L Hct 37.7 L MCV 87.9 MCH 31.5 MCHC 35.8 RDW 13.5 Plt Count 84 L D MPV 9.6 Absolute Nucleated RBC 0.000 Nucleated RBC % (auto) 0.0 POC Glucose 127 H 161 H 02/12/22 02/13/22 20:24 07:30 WBC RBC Hgb Hct MCV MCH MCHC RDW Plt Count MPV Absolute Nucleated RBC Nucleated RBC % (auto) POC Glucose 123 H 118 H Discharge Plan Discharge Anticipated Discharge Date/Time: 02/15/22 13:10 Patient Disposition: Xfer SNF Discharge Diagnosis: Acute withdrawal, alcoholic gastrtis Referrals: redovery team [Other] - 1 Day (patient willneed to follow up with [facility] PLEASE CALL [phone] [phone] FOR FOLLOW UP PER RECOVERY TEAM) [facility] [Outside] - 1 Day (SHORT TERM REHAB) Physician,Unknown J [Primary Care Provider] - 1 Week Discharge Medications: Continued furosemide 40 mg tablet 1 tab PO DAILY clonidine HCl 0.1 mg tablet 1 tab PO BID spironolactone 25 mg tablet 1 tab PO DAILY tamsulosin 0.4 mg capsule 2 cap PO DAILY omeprazole 20 mg capsule,delayed release(DR/EC) 40 mg PO DAILY paroxetine HCl 40 mg tablet 1 tab PO DAILY bupropion HCl 300 mg tablet extended release 24 hr 1 tab PO DAILY atorvastatin 40 mg tablet 1 tab PO BEDTIME finasteride 5 mg tablet 1 tab PO DAILY albuterol sulfate [ProAir HFA] 90 mcg/actuation HFA aerosol inhaler 1 inh inhalation QID PRN (Reason: shortness of breath or wheezing) Qty: 8.5 0RF bupropion HCl 150 mg tablet sustained-release 12 hr 1 tab PO DAILY famotidine 20 mg tablet 1 tab PO BID potassium chloride 10 mEq Tablet Extended Release 10 meq PO DAILY aripiprazole 5 mg Tablet 5 mg PO DAILY hydroxyzine HCl 25 mg tablet 25 mg PO Q4H PRN (Reason: Anxiety) folic acid 1 mg tablet 1 mg PO DAILY (DME) FreeStyle Lite Strips Strip See Rx Instructions Not Applicable TID Qty: 10 Rx Instructions: As directed docusate sodium 100 mg capsule 100 mg PO BID PRN (Reason: constipation) (DME) lancets [Ultra-Care Lancets] 30 gauge misc See Rx Instructions .ROUTE TID Qty: 100 Rx Instructions: As directed (DME) BD AutoShield Duo Pen Needle 30 gauge x 3/16 needle See Rx Instructions .ROUTE .MEDSUPPLY Qty: 100 Rx Instructions: As directed Discharge Orders: Discharge Order (Routine); Ordered 02/15/22 Ordered By: Rogers Cardenas Diet: advance to usual diet Activity on Discharge: As tolerated Stand Alone Forms: Patient Portal Discharge page Care Plan Goals: Full recovery from alcoholism Health Concerns: Alcoholism Plan of Treatment: To short term rehab for less than 30 days Assessment: As above
--- NOTE | 2022-02-15 14:46 | MHC.CM.PN ---
PT DISCHARGED TO [facility], PT PROVIDED W/WAY FINDERS CONTACT INFO, [facility] FOR BLS TRANSPORT
== END 2022-02-15 16:36 | disposition skilled nursing facility (03) | DRG 392 ==
LOC: HO.ED 02-11 01:58 → HO.EDOVER 02-11 02:33 → HO.S3 02-11 19:55
PROVIDERS: Admitting Provider Hospitalist; Emergency Provider Student in an Organized Health Care Education/Training Program; Visit Provider Internal Medicine
DX: K29.20 Alcoholic gastritis without bleeding (principal); K70.30 Alcoholic cirrhosis of liver without ascites; F41.9 Anxiety disorder, unspecified; J44.9 Chronic obstructive pulmonary disease, unspecified; G47.33 Obstructive sleep apnea (adult) (pediatric); E66.9 Obesity, unspecified; N40.0 Benign prostatic hyperplasia without lower urinary tract symptoms; F32.A Depression, unspecified; E87.6 Hypokalemia; F11.21 Opioid dependence, in remission; Z68.33 Body mass index [BMI] 33.0-33.9, adult; E11.9 Type 2 diabetes mellitus without complications; F17.210 Nicotine dependence, cigarettes, uncomplicated; Z71.6 Tobacco abuse counseling; Z87.820 Personal history of traumatic brain injury; Z20.822 Contact with and (suspected) exposure to COVID-19; Z79.899 Other long term (current) drug therapy
CPT/HCPCS: 36415; 74176; 80048; 80051; 80053; 82009; 82077; 82272; 82803; 82947; 83690; 83880; 84484; 85025; 85027; 86850; 86900; 86901; 87635; 93005; 96361; 96374; 96375; 97162; 97530; 99285; J1650; J2060; J2405

== ENCOUNTER 2022-03-21 15:05 | Emergency (ER) | payer MEDICARE, MEDICAID, SELFPAY ==
--- NOTE | ~2022-03-21 | CT_ITS ---
EXAMINATION: CT CERVICAL SPINE WITHOUT CONTRAST CLINICAL INFORMATION: Fall COMPARISON: Previous cervical spine CT from 2019 TECHNIQUE: Axial images through the cervical spine without contrast. Sagittal and coronal reconstructions on the technologist workstation were performed. This CT examination was performed using dose optimization techniques as appropriate, variously including the following: *Automated exposure control *Adjustment of mA and/or kV according to patient size (this includes techniques or standardized protocols for targeted exams where dose is matched to indication/reason for exam; i.e. extremities or head) *Use of iterative reconstruction technique DLP: 8-9 mGy-cm FINDINGS: Bone alignment is normal. No fracture or dislocation is seen. There is degenerative spondylosis and degenerative disc disease from C3-C4 to C5-C6. There are degenerative changes at the C1 dens articulation. There is bilateral facet arthritis. Prevertebral soft tissues are normal. There is bilateral carotid calcification. Visualized lung apices are clear. CT/CT cervical spine wo con IMPRESSION: Degenerative changes. No fracture or dislocation. Fleischner guidelines were followed.
--- NOTE | ~2022-03-21 | CT_ITS ---
EXAMINATION: CT ABDOMEN AND PELVIS WITHOUT CONTRAST CLINICAL INFORMATION: Upper abdominal pain. Recent EtOH intake. COMPARISON: CT abdomen and pelvis 02/11/2022, chest CT 05/14/2021 TECHNIQUE: Multidetector volumetric imaging was performed from the superior aspect of the liver through the pubic symphysis. Sagittal and coronal reformatted images were obtained on the technologist's workstation. This CT examination was performed using dose optimization techniques as appropriate, variously including the following: *Automated exposure control *Adjustment of mA and/or kV according to patient size (this includes techniques or standardized protocols for targeted exams where dose is matched to indication/reason for exam; i.e. extremities or head) *Use of iterative reconstruction technique DLP: 811 mGy-cm FINDINGS: LUNG BASES: The visualized lung bases are unremarkable. LIVER, GALLBLADDER, AND BILIARY TREE: Hepatic hypoattenuation compatible with steatosis. Cirrhotic liver morphology as on prior with nodular surface contour. No gross liver lesion. No biliary ductal dilation. Status post cholecystectomy. Surgical clips in the gallbladder fossa. PANCREAS: Small punctate calcifications in the pancreatic head compatible with sequela of prior pancreatitis. No pancreatic lesion or peripancreatic inflammatory change. SPLEEN: Mildly enlarged measuring 15.3 cm in length. No splenic lesion. ADRENAL GLANDS: Unremarkable. KIDNEYS AND URETERS: Small 2 mm nonobstructing right renal calculus. No appreciable renal lesion. No hydronephrosis. Mild symmetric perirenal fascial stranding, unchanged. BLADDER: Unremarkable. GASTROINTESTINAL TRACT: Small hiatal hernia. Mild sigmoid diverticulosis. No evidence of acute diverticulitis. No dilated bowel loops or bowel wall thickening. Normal appendix. No ascites or free air. ABDOMINAL WALL: Small fat-containing left inguinal hernia. LYMPH NODES: No lymphadenopathy. VASCULAR: Mild vascular calcifications. No abdominal aortic aneurysm. PELVIC VISCERA: Unremarkable. OSSEOUS STRUCTURES: No acute fracture or suspicious osseous lesion. Unchanged compression deformities of T7, T9, T12, L1, and L2. No acute fracture. No suspicious appearing osseous lesion. Right greater than left hip joint osteoarthritis and small bowel island in the right sacrum noted. CT/CT abdomen pelvis wo con IMPRESSION: 1. No acute intra-abdominal process identified to explain the patient's upper abdominal pain. 2. Cirrhosis and mild splenomegaly. 3. Hepatic steatosis. 4. Other unchanged ancillary findings, as described.
--- NOTE | ~2022-03-21 | XR_ITS ---
EXAMINATION: XR CHEST CLINICAL INFORMATION: Chest pain, shortness of breath and nausea COMPARISON: Previous chest x-ray November 2021 TECHNIQUE: 2 views of the chest were obtained. FINDINGS: The cardiac and mediastinal contours are stable. The lungs are clear. There is no pleural effusion or pneumothorax. There are multiple lower thoracic and upper lumbar vertebral body compression fractures. XR/XR chest 2V IMPRESSION: No evidence for acute disease in the chest. Multiple compression fractures.
--- NOTE | ~2022-03-21 | CT_ITS ---
EXAMINATION: CT HEAD WITHOUT CONTRAST CLINICAL INFORMATION: Fall COMPARISON: Previous head CT July 2019 TECHNIQUE: Contiguous axial imaging was performed from the skull base to vertex without intravenous administration of contrast. This CT examination was performed using dose optimization techniques as appropriate, variously including the following: *Automated exposure control *Adjustment of mA and/or kV according to patient size (this includes techniques or standardized protocols for targeted exams where dose is matched to indication/reason for exam; i.e. extremities or head) *Use of iterative reconstruction technique DLP: 864 mGy-cm FINDINGS: There is no evidence of an extra-axial collection. There is no evidence of intra-axial or extra-axial hemorrhage. The ventricles and extra-axial CSF spaces are prominent suggestive of generalized atrophy. There is nonspecific periventricular white matter disease. There may be old right basal ganglia lacunar infarcts. No mass, mass effect or acute infarct is seen. There are postsurgical changes to the left frontal, parietal and temporal bones. No skull fracture is seen. There is an old right nasal bone fracture that appears unchanged. There is an air-fluid level seen in the right maxillary sinus. Acute right facial bone fracture is not seen. The remainder of the paranasal sinuses are clear. Mastoid air cells and middle ears are clear. CT/CT head/brain wo con IMPRESSION: No acute intracranial findings. Generalized atrophy and nonspecific periventricular white matter disease. Old postsurgical changes to the left frontal parietal and temporal bones. Old right nasal bone fracture. Air-fluid level in the right maxillary sinus. No acute facial bone fracture seen.
--- NOTE | ~2022-03-21 | CT_ITS ---
EXAMINATION: CT CHEST WITHOUT CONTRAST CLINICAL INFORMATION: Fractures on x-ray COMPARISON: 05/14/2021 CT The thoracic inlet is felt to be within normal limits. Centrally there is no bulky mediastinal adenopathy. Coronary calcifications are noted. Partially visualized upper abdominal structures show partial visualization of a prominent spleen. Corrugated liver most consistent with cirrhosis. Difficult to evaluate on this noncontrast study. Imaging of the lung bradford. Right lung; No pneumothorax. There is no effusion. Left lung; No pneumothorax. There is no effusion. Review of the bone windows demonstrates chronic compression injury of several thoracic vertebrae. No convincing evidence for an acute compression CT/CT chest wo con IMPRESSION: No acute finding here. There is no pneumothorax or effusion. No acute fracture is seen. Several areas of chronic compression injury in the thoracic vertebrae when compared to CT of 05/14/2021. TECHNIQUE: Multidetector volumetric CT imaging of the chest was done. Axial MIP volume rendering provided. Sagittal and coronal reformatted images were obtained. This CT examination was performed using dose optimization techniques as appropriate, variously including the following: *Automated exposure control *Adjustment of mA and/or kV according to patient size (this includes techniques or standardized protocols for targeted exams where dose is matched to indication/reason for exam; i.e. extremities or head) *Use of iterative reconstruction technique DLP: 345 mGy-cm Fleischner guidelines were followed.
[2022-03-21 15:18] VITALS: BP 160/98; PULSE 103; O2SAT 98
[2022-03-21 15:20] VITALS: BP 159/96; PULSE 97; RESP 20; TEMP 36.6; O2SAT 97; BMI 34.4
--- NOTE | 2022-03-21 15:29 | ECG_ITS ---
Test Reason : cp Blood Pressure : / mmHG Vent. Rate : 095 BPM Atrial Rate : 095 BPM P-R Int : 168 ms QRS Dur : 080 ms QT Int : 354 ms P-R-T Axes : 036 009 026 degrees QTc Int : 444 ms Normal sinus rhythm Normal ECG When compared with ECG of 10-FEB-2022 17:32, ST no longer depressed in Anterior leads Nonspecific T wave abnormality, improved in Inferior leads Nonspecific T wave abnormality no longer evident in Anterolateral leads Referred By: Erinn Dueñas Electronically Signed By:Yoni Treadwell
--- NOTE | 2022-03-21 15:38 | PC.NURSE ---
pt to radiology
[2022-03-21] MEDS: Ondansetron ODT 4 MG TAB.RAPDIS TRANSLINGU ×2 (15:47→20:48)
--- NOTE | 2022-03-21 16:06 | ED.GENADULT ---
HPI - General Adult General Chief complaint: Nausea/Vomiting/Diarrhea Stated complaint: NAUSEA ,CHEST PAIN, Time Seen by Provider: 03/21/22 15:25 Source: patient and EMS Mode of arrival: EMS Limitations: other (Poor historian) History of Present Illness HPI narrative: 56-year-old male with a past medical history of alcohol dependent reports that he was drinking this morning approximately a quarter pt of vodka and a few beers, hypertension, hyperlipidemia, diabetes, COPD, CHF, interstitial lung disease, history of ARDS, obstructive sleep apnea, obesity, history of traumatic brain injury, liver cirrhosis, anxiety, depression who is presenting to the ED via EMS with complaints of nausea/vomiting that started yesterday after he has been binge drinking for 3 days this morning he woke up and continued to drink and around 09:00 while he was drinking he developed chest pain in the midsternal area that radiates to the right side. He reports associated nausea and vomiting with blood-streaked emesis. No blood clots when he vomits. Reports some dizziness feels like the room is spinning around him. I noticed some bruising on his abdomen and he reported he is also having left upper quadrant abdominal pain and is unsure if he fell but he might a fell yesterday. He is unsure if he lost consciousness or he hit his head yesterday. He denies any neck pain. Although reports some back pain at this time. He denies any changes in vision, headaches, neck pain/injury/stiffness, shortness of breath, dyspnea exertion, orthopnea, palpitation, paresthesias, urinary or bowel incontinence or retention, saddle anesthesia, history of IV drug use, fevers, dysuria, hematuria, abnormal penile discharge, diarrhea constipation, black or bloody stools, recent travel or sick contacts or others with similar symptoms or any other symptoms complaints or concerns at this time. MD complaint: Multiple complaints which include dizziness/N/V/abdominal pain and fall Onset (ago): day(s) (2) Related Data Home Medications Medication Instructions Recorded Confirmed bupropion HCl 300 mg 24 hr tablet, 1 tab PO DAILY 01/21/21 02/11/22 extended release clonidine HCl 0.1 mg tablet 1 tab PO BID 01/21/21 02/11/22 furosemide 40 mg tablet 1 tab PO DAILY 01/21/21 02/11/22 omeprazole 20 mg capsule,delayed 40 mg PO DAILY 01/21/21 02/11/22 release paroxetine HCl 40 mg tablet 1 tab PO DAILY 01/21/21 02/11/22 spironolactone 25 mg tablet 1 tab PO DAILY 01/21/21 02/11/22 tamsulosin 0.4 mg capsule 2 cap PO DAILY 01/21/21 02/11/22 atorvastatin 40 mg tablet 1 tab PO BEDTIME 05/14/21 02/11/22 finasteride 5 mg tablet 1 tab PO DAILY 05/14/21 02/11/22 blood sugar diagnostic (FreeStyle #10 ea 09/08/21 02/11/22 Lite Strips) docusate sodium 100 mg capsule 100 mg PO BID PRN constipation 09/08/21 02/11/22 folic acid 1 mg tablet 1 mg PO DAILY 09/08/21 02/11/22 hydroxyzine HCl 25 mg tablet 25 mg PO Q4H PRN Anxiety 09/08/21 02/11/22 lancets 30 gauge (Ultra-Care #100 ea 09/08/21 02/11/22 Lancets) pen needle,diabetic dual safty 30 #100 ea 09/08/21 02/11/22 gauge x 3/16 (BD AutoShield Duo Pen Needle) bupropion HCl 150 mg tablet,12 hr 1 tab PO DAILY 10/12/21 02/11/22 sustained-release aripiprazole 5 mg tablet 5 mg PO DAILY 02/11/22 02/11/22 famotidine 20 mg tablet 1 tab PO BID 02/11/22 02/11/22 potassium chloride 10 mEq 10 meq PO DAILY 02/11/22 02/11/22 tablet,extended release Previous Rx's Medication Instructions Recorded albuterol sulfate 90 mcg/actuation 1 inh inhalation QID PRN shortness 05/19/21 aerosol inhaler (ProAir HFA) of breath or wheezing #8.5 grams acetaminophen 500 mg tablet 1,000 mg PO QID PRN fever or pain 03/21/22 (Tylenol Extra Strength) #14 tabs ondansetron 4 mg disintegrating 4 mg PO Q6H PRN nausea and 03/21/22 tablet vomiting #10 tabs Allergies Allergy/AdvReac Type Severity Reaction Status Date / Time No Known Allergies Allergy Verified 10/12/21 10:58 [No Known Allergies*] Review of Systems Review of Systems: Constitutional : No Weight loss, No Fever, No Chills, No Night Sweats, No Fatigue, No Malaise ENT/Mouth : No Hearing loss, No Ear Pain, No Nasal Congestion, No Sinus Pain, No Hoarseness, No sore throat, No Rhinorrhea, No Swallowing Difficulty Eyes: No Eye Pain, No Swelling, No Redness, No Foreign Body, No Discharge, No Vision Changes Cardiovascular : + Chest Pain, No SOB, No Dyspnea on Exertion, No Orthopnea, No Edema, No Palpitations Respiratory : No Cough, No Sputum, No Wheezing, No Smoke Exposure, No Dyspnea Gastrointestinal : + Nausea, + Vomiting, No Diarrhea, No Constipation, + abdominal Pain, No Hematochezia, No Melena Genitourinary : no irregular bleeding, No Dysuria, No Urinary Frequency, No Hematuria, No Urinary Incontinence, No Urgency, No Flank Pain, No Urinary Flow Changes, No Hesitancy Musculoskeletal : No joint pain, No Myalgias, No Joint Swelling Skin : No Skin Lesions, No rash Neuro : No Weakness, No Numbness, No Paresthesias, No Loss of Consciousness, + Dizziness, No Headache Psych : No Anxiety/Panic, No Depression, No SI/HI/AH/VH, No Social Issues, Heme/Lymph: No Bruising, No Bleeding,No Lymphadenopathy Endocrine : No Polyuria, No Polydipsia, No Temperature Intolerance Yes all other systems are reviewed and are negative [facility] Past Medical History Attestation statement: The following information was validated with the patient. Source: old records reviewed and nursing notes reviewed Medical History Acute interstitial pneumonitis Alcohol use disorder, moderate, dependence Anxiety ARDS (adult respiratory distress syndrome) ARDS (adult respiratory distress syndrome) CHF (congestive heart failure) Cirrhosis of liver Cocaine abuse Community acquired pneumonia COPD (chronic obstructive pulmonary disease) COPD (chronic obstructive pulmonary disease) COPD exacerbation COPD exacerbation Diabetes ETOH abuse Hypertension Hypoxia ILD (interstitial lung disease) Interstitial lung disease Liver cirrhosis Obesity (BMI 35.0-39.9 without comorbidity) Obesity (BMI 35.0-39.9 without comorbidity) KATHYA (obstructive sleep apnea) KATHYA (obstructive sleep apnea) Pneumonia Pneumonia Pneumonitis Sepsis Smoker TBI (traumatic brain injury) Surgical History H/O brain surgery No significant past surgical history Family History Family History Other Lymphoma Social History Social History Household Members: None Housing: Homeless Housing Other:: Sober House Do you presently have visiting nurse or other home services: No Alcohol intake: current Alcohol intake frequency: 3 or more drinks per day Alcohol type: hard liquor Patient Tobacco Use Status: Never used Tobacco Tobacco use type: Cigarette Cigarette Packs Per Day: 0.5 Cigarettes Per Day: 7 Second Hand Smoke Exposure: Yes Substance Use Type: Crack/Cocaine and Heroin Advance Directives: Yes Advance Directives on File: Yes Advance Directives Date on File: 05/20/21 service: No Current occupational status: unemployed and disabled Physical Exam ED Vital Signs: Vital Signs - 24 hr 03/21/22 15:20 03/21/22 17:00 Temperature 97.9 F Pulse Rate 97 97 Respiratory Rate 20 18 Blood Pressure 159/96 H Pulse Oximetry 97 Oxygen Delivery Method Room Air BMI result Body Mass Index 34.4 vital signs have been reviewed as normal and appeared to be correct. Blood pressure 159/96. Heart rate normal. Respiration rate normal. Temperature normal. Oxygen saturation normal. Appearance: Alert. Oriented X3. No acute distress. Head: Normal external exam. Normocephalic. Atraumatic. No Gottlieb signs noted. No raccoon eyes noted Eyes: PERRLA. EOMI. Conjunctiva and sclera normal. Eyelids normal. ENT: EAC normal. TM's Normal. No septal hematoma noted. No hemotympanum noted. Pharynx normal. Uvula midline. Moist mucous membranes. No lesions/ulcerations or masses noted on the tongue. Normal voice. No trismus noted. No drooling noted. No muffled voice noted. Neck: Normal inspection. Neck supple. FROM. No adenopathy. Thyroid Normal. No tracheal deviation noted. No crepitus is noted. No meningeal signs. No neck mass noted. No signs of trauma noted. CVS: Normal heart rate and rhythm. Heart sound normal. Pulses normal throughout. No murmurs/rales/gallops. Respiratory: No respiratory distress. Painless inspiration. Mild decreased breath sounds with inspiratory and expiratory wheezing throughout. No rales/rhonchi noted. Chest nontender. No crepitus is noted. No signs of trauma noted. No accessory muscle usage noted or decreased air movement noted. Abdomen: Soft and mild tenderness palpation to the left upper quadrant/epigastric/right upper quadrant area. No signs of trauma to this area of the abdomen. Bowel sounds normal in all 4 quadrants. No distention noted. No organomegaly noted. Patient appears to have old bruising to the lower quadrants of his abdomen. Back: No CVA tenderness. Full range of motion noted. Nontender. No signs of trauma. Patient neuro intact bilaterally and distally on all 4 extremities. Patient's reflexes intact bilaterally and distally on all 4 extremities. No rashes/lesion/induration/fluctuance or signs of infection noted. Skin: Skin warm and dry. Normal skin color. Normal skin turgor. No rashes/lesions/lacerations noted. Extremities: No lower extremity edema. No calf tenderness is noted. Extremities exhibit normal range of motion and nontender. Neuro: Oriented X 3. No motor deficit. No sensory deficit. Reflexes normal. Normal steady gait. No focal neuro deficits noted. CN's II-XII intact bilaterally? Vascular: + radial pulses/+ 2 distal pedal pulses/+2 dorsalis pedis b/l. Normal cap refill. No cyanosis noted to upper extremity nails and lower extremity toes nails. Course Course Course Narrative: 15:30pm - 56-year-old male c PMHX of alcohol dependent reports that he was drinking this morning approximately a quarter pt of vodka and a few beers and binge drinking x 3 days, HTN, HLD, DM, COPD, CHF, interstitial lung disease, history of ARDS, obstructive sleep apnea, obesity, history of TBI, liver cirrhosis, anxiety, depression who is presenting to the ED via EMS with complaints of nausea/vomiting that started yesterday with associated chest pain, dizziness, upper abdominal pain and back pain. Reports not compliant with medications. Plan: Will obtain labs, EKG, CT scan of brain/cervical spine/chest and abdomen pelvis without IV contrast, chest x-ray, COVID swab. Provide 4 mg of Zofran and re-evaluate. Reevaluation(s) Reevaluation #1: - labs reviewed patient mild anemia with an H&H of 13.6/39.5. Low platelet count at 125 similar improved when compared to prior. BUN 5. Random glucose 132. Troponin 4.7. Otherwise all other labs are within normal limits. UA revealed a trace of blood otherwise no evidence of UTI. Alcohol level 158. Otherwise all other labs are within normal limits - CT scan abdomen pelvis without IV contrast revealed chronic changes no acute processes noted. - CT scan of chest without contrast revealed chronic changes no acute processes and old chronic compression injury to thoracic vertebrae when compared to 05/14/2021 no acute fractures or acute processes noted - CT scan of cervical spine revealed chronic changes no acute processes noted. - x-ray of chest revealed multiple compression fractures otherwise no other acute processes were noted. - CT scan abdomen pelvis revealed chronic changes such as cirrhosis and mild splenomegaly with hepatic steatosis and chronic unchanged compression deformities of T7/T9/T12/L1 and L2 no acute fracture. - will repeat troponin. If negative patient will be discharged. Time: 17:17 Reevaluation #2: - patient now requesting detox. Time: 17:52 Reevaluation #3: Repeat troponin negative delta. Patient will be going to [facility] tomorrow morning. Will DC home via lyft and instructions return if any new or worsening symptoms. Patient understands agrees with this plan. Time: 19:52 Medical Decision Making Medical Records Medical records reviewed: Yes I reviewed the patient's medical records. Lab Data Lab results reviewed: Yes I reviewed the patient's lab results. Result diagrams: 03/21/22 16:15 03/21/22 16:15 Labs: Lab Results 03/21/22 03/21/22 03/21/22 Range/Units 16:15 16:15 16:15 WBC 7.1 (4.8-10.8) X10*3/uL RBC 4.50 L (4.60-5.80) X10*6/uL Hgb 13.6 L (14.0-18.0) g/dl Hct 39.5 L (42.0-52.0) % MCV 87.8 (80.0-98.0) fL MCH 30.2 (27.0-33.0) pg MCHC 34.4 (31.0-36.0) g/dl RDW 13.4 (11.0-16.0) % Plt Count 125 L D (160-400) X10*3/uL MPV 9.3 L (9.4-12.4) fL Immature Gran % (Auto) 0.4 (0.0-0.4) % Neut % (Auto) 81.2 H (45-73) % Lymph % (Auto) 13.5 L (20-40) % [place] % (Auto) 4.1 (2-11) % Eos % (Auto) 0.4 (0-4) % Baso % (Auto) 0.4 (0-2) % Lymph # (Auto) 1.0 L (1.2-4.9) X10*3/uL [place] # (Auto) 0.3 (0.1-1.2) X10*3/uL Eos # (Auto) 0.0 (0.0-0.4) X10*3/uL Baso # (Auto) 0.0 (0.0-0.2) X10*3/uL Abs Immat Gran (auto) 0.03 (0.00-0.03) X10*3/uL Absolute Neuts (auto) 5.8 (2.0-8.3) x10*3/uL Absolute Nucleated RBC 0.000 (0.0-0.012) X10*3/uL Nucleated RBC % (auto) 0.0 (0.0-0.2) /100WBC PT 11.3 (10.0-13.1) SEC INR 1.0 (0.9-1.1) Sodium 139 (135-145) mmol/L Potassium 3.4 (3.3-5.1) mmol/L Chloride 103 (96-108) mmol/L Carbon Dioxide 23 (22-29) mmol/L Anion Gap 16 (12-20) BUN 5 L (9-16) mg/dL Creatinine 0.77 (0.5-1.4) mg/dL Estim Creat Clear Calc 117.6 Estimated GFR > 60 Random Glucose 132 H (60-115) mg/dL Calcium 8.8 (8.4-10.2) mg/dL Magnesium 1.8 (1.6-2.6) mg/dL Total Bilirubin 1.0 (0.0-1.0) mg/dL AST 32 D (5-37) U/L ALT 22 (0-40) U/L Alkaline Phosphatase 108 (39-117) U/L Troponin I High Sens (<3.5-35.0) ng/L B-Natriuretic Peptide (<100) pg/mL Total Protein 6.9 (6.5-8.0) g/dL Albumin 4.2 (3.5-5.0) g/dL Lipase 16 (8-78) U/L Urine Color Urine Appearance Urine pH (5.0-8.0) Ur Specific [place] (1.005-1.025) Urine Protein (NEG-TRACE) MG/DL Urine Glucose (UA) (NEG) MG/DL Urine Ketones (NEG) MG/DL Urine Blood (NEG) Urine Nitrite (NEG) Ur Leukocyte Esterase (NEG) Urine RBC (0) /HPF Urine WBC (0-4) /HPF Ur Squamous Epith Cells /LPF Urine Bacteria /LPF Ethyl Alcohol mg/dL COVID-19 (YADIRA) (Negative) COVID-19 Clin Com 03/21/22 03/21/22 03/21/22 Range/Units 16:15 16:15 16:15 WBC (4.8-10.8) X10*3/uL RBC (4.60-5.80) X10*6/uL Hgb (14.0-18.0) g/dl Hct (42.0-52.0) % MCV (80.0-98.0) fL MCH (27.0-33.0) pg MCHC (31.0-36.0) g/dl RDW (11.0-16.0) % Plt Count (160-400) X10*3/uL MPV (9.4-12.4) fL Immature Gran % (Auto) (0.0-0.4) % Neut % (Auto) (45-73) % Lymph % (Auto) (20-40) % [place] % (Auto) (2-11) % Eos % (Auto) (0-4) % Baso % (Auto) (0-2) % Lymph # (Auto) (1.2-4.9) X10*3/uL [place] # (Auto) (0.1-1.2) X10*3/uL Eos # (Auto) (0.0-0.4) X10*3/uL Baso # (Auto) (0.0-0.2) X10*3/uL Abs Immat Gran (auto) (0.00-0.03) X10*3/uL Absolute Neuts (auto) (2.0-8.3) x10*3/uL Absolute Nucleated RBC (0.0-0.012) X10*3/uL Nucleated RBC % (auto) (0.0-0.2) /100WBC PT (10.0-13.1) SEC INR (0.9-1.1) Sodium (135-145) mmol/L Potassium (3.3-5.1) mmol/L Chloride (96-108) mmol/L Carbon Dioxide (22-29) mmol/L Anion Gap (12-20) BUN (9-16) mg/dL Creatinine (0.5-1.4) mg/dL Estim Creat Clear Calc Estimated GFR Random Glucose (60-115) mg/dL Calcium (8.4-10.2) mg/dL Magnesium (1.6-2.6) mg/dL Total Bilirubin (0.0-1.0) mg/dL AST (5-37) U/L ALT (0-40) U/L Alkaline Phosphatase (39-117) U/L Troponin I High Sens 4.7 (<3.5-35.0) ng/L B-Natriuretic Peptide 55 (<100) pg/mL Total Protein (6.5-8.0) g/dL Albumin (3.5-5.0) g/dL Lipase (8-78) U/L Urine Color YELLOW Urine Appearance CLEAR Urine pH 6.5 (5.0-8.0) Ur Specific [place] <= 1.005 (1.005-1.025) Urine Protein NEG (NEG-TRACE) MG/DL Urine Glucose (UA) NEG (NEG) MG/DL Urine Ketones NEG (NEG) MG/DL Urine Blood TRACE (NEG) Urine Nitrite NEG (NEG) Ur Leukocyte Esterase NEG (NEG) Urine RBC 0-2 (0) /HPF Urine WBC 0 (0-4) /HPF Ur Squamous Epith Cells TRACE /LPF Urine Bacteria NONE /LPF Ethyl Alcohol 158 mg/dL COVID-19 (YADIRA) (Negative) COVID-19 Clin Com 03/21/22 03/21/22 Range/Units 18:34 18:34 WBC (4.8-10.8) X10*3/uL RBC (4.60-5.80) X10*6/uL Hgb (14.0-18.0) g/dl Hct (42.0-52.0) % MCV (80.0-98.0) fL MCH (27.0-33.0) pg MCHC (31.0-36.0) g/dl RDW (11.0-16.0) % Plt Count (160-400) X10*3/uL MPV (9.4-12.4) fL Immature Gran % (Auto) (0.0-0.4) % Neut % (Auto) (45-73) % Lymph % (Auto) (20-40) % [place] % (Auto) (2-11) % Eos % (Auto) (0-4) % Baso % (Auto) (0-2) % Lymph # (Auto) (1.2-4.9) X10*3/uL [place] # (Auto) (0.1-1.2) X10*3/uL Eos # (Auto) (0.0-0.4) X10*3/uL Baso # (Auto) (0.0-0.2) X10*3/uL Abs Immat Gran (auto) (0.00-0.03) X10*3/uL Absolute Neuts (auto) (2.0-8.3) x10*3/uL Absolute Nucleated RBC (0.0-0.012) X10*3/uL Nucleated RBC % (auto) (0.0-0.2) /100WBC PT (10.0-13.1) SEC INR (0.9-1.1) Sodium (135-145) mmol/L Potassium (3.3-5.1) mmol/L Chloride (96-108) mmol/L Carbon Dioxide (22-29) mmol/L Anion Gap (12-20) BUN (9-16) mg/dL Creatinine (0.5-1.4) mg/dL Estim Creat Clear Calc Estimated GFR Random Glucose (60-115) mg/dL Calcium (8.4-10.2) mg/dL Magnesium (1.6-2.6) mg/dL Total Bilirubin (0.0-1.0) mg/dL AST (5-37) U/L ALT (0-40) U/L Alkaline Phosphatase (39-117) U/L Troponin I High Sens 5.0 (<3.5-35.0) ng/L B-Natriuretic Peptide (<100) pg/mL Total Protein (6.5-8.0) g/dL Albumin (3.5-5.0) g/dL Lipase (8-78) U/L Urine Color Urine Appearance Urine pH (5.0-8.0) Ur Specific [place] (1.005-1.025) Urine Protein (NEG-TRACE) MG/DL Urine Glucose (UA) (NEG) MG/DL Urine Ketones (NEG) MG/DL Urine Blood (NEG) Urine Nitrite (NEG) Ur Leukocyte Esterase (NEG) Urine RBC (0) /HPF Urine WBC (0-4) /HPF Ur Squamous Epith Cells /LPF Urine Bacteria /LPF Ethyl Alcohol mg/dL COVID-19 (YADIRA) Negative (Negative) COVID-19 Clin Com See Note Imaging Data Chest x-ray: Attestation: I personally reviewed and interpreted this imaging study as follows: Radiologist's impression: FINDINGS: The cardiac and mediastinal contours are stable. The lungs are clear. There is no pleural effusion or pneumothorax. There are multiple lower thoracic and upper lumbar vertebral body compression fractures. XR/XR chest 2V IMPRESSION: No evidence for acute disease in the chest. Multiple compression fractures. CT scan abdomen pelvis without IV contrast: Attestation: I personally reviewed and interpreted this imaging study as follows: Radiologist's impression: FINDINGS: LUNG BASES: The visualized lung bases are unremarkable.? LIVER, GALLBLADDER, AND BILIARY TREE: Hepatic hypoattenuation compatible with steatosis. Cirrhotic liver morphology as on prior with nodular surface contour. No gross liver lesion. No biliary ductal dilation. Status post cholecystectomy. Surgical clips in the gallbladder fossa.? PANCREAS: Small punctate calcifications in the pancreatic head compatible with sequela of prior pancreatitis. No pancreatic lesion or peripancreatic inflammatory change.? SPLEEN: Mildly enlarged measuring 15.3 cm in length. No splenic lesion. ? ADRENAL GLANDS: Unremarkable.? KIDNEYS AND URETERS: Small 2 mm nonobstructing right renal calculus. No appreciable renal lesion. No hydronephrosis. Mild symmetric perirenal fascial stranding, unchanged.? BLADDER: Unremarkable.? GASTROINTESTINAL TRACT: Small hiatal hernia. Mild sigmoid diverticulosis. No evidence of acute diverticulitis. No dilated bowel loops or bowel wall thickening. Normal appendix. No ascites or free air.? ABDOMINAL WALL: Small fat-containing left inguinal hernia.? LYMPH NODES: No lymphadenopathy. VASCULAR: Mild vascular calcifications. No abdominal aortic aneurysm. PELVIC VISCERA: Unremarkable.? OSSEOUS STRUCTURES: No acute fracture or suspicious osseous lesion. Unchanged compression deformities of T7, T9, T12, L1, and L2. No acute fracture. No suspicious appearing osseous lesion. Right greater than left hip joint osteoarthritis and small bowel island in the right sacrum noted. CT/CT abdomen pelvis wo con IMPRESSION: ? 1. No acute intra-abdominal process identified to explain the patient's upper abdominal pain. 2. Cirrhosis and mild splenomegaly. 3. Hepatic steatosis. 4. Other unchanged ancillary findings, as described.? CT scan of brain/cervical spine without contrast: Attestation: I personally reviewed and interpreted this imaging study as follows: Radiologist's impression: FINDINGS: There is no evidence of an extra-axial collection. There is no evidence of intra-axial or extra-axial hemorrhage. The ventricles and extra-axial CSF spaces are prominent suggestive of generalized atrophy. There is nonspecific periventricular white matter disease. There may be old right basal ganglia lacunar infarcts. No mass, mass effect or acute infarct is seen. There are postsurgical changes to the left frontal, parietal and temporal bones. No skull fracture is seen. There is an old right nasal bone fracture that appears unchanged. There is an air-fluid level seen in the right maxillary sinus. Acute right facial bone fracture is not seen. The remainder of the paranasal sinuses are clear. Mastoid air cells and middle ears are clear. ? CT/CT head/brain wo con IMPRESSION: No acute intracranial findings. Generalized atrophy and nonspecific periventricular white matter disease. Old postsurgical changes to the left frontal parietal and temporal bones. Old right nasal bone fracture. Air-fluid level in the right maxillary sinus. No acute facial bone fracture seen. CT scan of chest without contrast: Attestation: I personally reviewed and interpreted this imaging study as follows: Radiologist's impression: The thoracic inlet is felt to be within normal limits. Centrally there is no bulky mediastinal adenopathy. Coronary calcifications are noted. Partially visualized upper abdominal structures show partial visualization of a prominent spleen. Corrugated liver most consistent with cirrhosis. Difficult to evaluate on this noncontrast study. Imaging of the lung bradford. Right lung; No pneumothorax. There is no effusion. Left lung; No pneumothorax. There is no effusion. Review of the bone windows demonstrates chronic compression injury of several thoracic vertebrae. No convincing evidence for an acute compression CT/CT chest wo con IMPRESSION: No acute finding here. There is no pneumothorax or effusion. No acute fracture is seen. Several areas of chronic compression injury in the thoracic vertebrae when compared to CT of 05/14/2021. Critical Care Time Critical Care Time Critical Care Time: Yes Total Critical Care Time: 60 Attestation: I personally attest to this time spent taking care of the patient Discharge Plan Discharge Clinical Impression: Nausea & vomiting, Cirrhosis, Splenomegaly, Hepatic steatosis Patient Disposition: Home, Self-Care Instructions: Cirrhosis (ED), Acute Nausea and Vomiting (ED) Additional Instructions: You have a bed at [facility] arrive there at 8 am tomorrow at on 03/22/22. Make sure you take all your medications with you. Return if any new or worsening symptoms. Prescriptions: New ondansetron 4 mg tablet,disintegrating 4 mg PO Q6H PRN (Reason: nausea and vomiting) Qty: 10 0RF acetaminophen [Tylenol Extra Strength] 500 mg tablet 1,000 mg PO QID PRN (Reason: fever or pain) Qty: 14 0RF No Action furosemide 40 mg tablet 1 tab PO DAILY clonidine HCl 0.1 mg tablet 1 tab PO BID spironolactone 25 mg tablet 1 tab PO DAILY tamsulosin 0.4 mg capsule 2 cap PO DAILY omeprazole 20 mg capsule,delayed release(DR/EC) 40 mg PO DAILY paroxetine HCl 40 mg tablet 1 tab PO DAILY bupropion HCl 300 mg tablet extended release 24 hr 1 tab PO DAILY atorvastatin 40 mg tablet 1 tab PO BEDTIME finasteride 5 mg tablet 1 tab PO DAILY albuterol sulfate [ProAir HFA] 90 mcg/actuation HFA aerosol inhaler 1 inh inhalation QID PRN (Reason: shortness of breath or wheezing) Qty: 8.5 0RF bupropion HCl 150 mg tablet sustained-release 12 hr 1 tab PO DAILY famotidine 20 mg tablet 1 tab PO BID potassium chloride 10 mEq Tablet Extended Release 10 meq PO DAILY aripiprazole 5 mg Tablet 5 mg PO DAILY hydroxyzine HCl 25 mg tablet 25 mg PO Q4H PRN (Reason: Anxiety) folic acid 1 mg tablet 1 mg PO DAILY (DME) FreeStyle Lite Strips Strip See Rx Instructions Not Applicable TID Qty: 10 Rx Instructions: As directed docusate sodium 100 mg capsule 100 mg PO BID PRN (Reason: constipation) (DME) lancets [Ultra-Care Lancets] 30 gauge misc See Rx Instructions .ROUTE TID Qty: 100 Rx Instructions: As directed (DME) BD AutoShield Duo Pen Needle 30 gauge x 3/16 needle See Rx Instructions .ROUTE .MEDSUPPLY Qty: 100 Rx Instructions: As directed Referrals: Physician,Unknown J [Primary Care Provider] - 5 days (your pcp)
--- NOTE | 2022-03-21 16:19 | PC.NURSE ---
patient a&o, iv inserted/labs drawn, urine obtained, ekg performed, pt c/o back pain as well as abd pain, pt medicated per order, pt back to radiology, will continue to monitor
[2022-03-21 16:39] LABS: MANUAL DIFF FLAG NO
[2022-03-21] MEDS: Simethicone 80 MG TAB.CHEW PO (16:39)
[2022-03-21] MEDS: Acetaminophen 325 MG TABLET 975 MG PO (16:39)
[2022-03-21] MEDS: Magnesium Hydrox/Alum Hydrox 30 ML ORAL.SUSP PO (16:40)
[2022-03-21] MEDS: Lidocaine HCl Viscous 2 % 15 ML SOLUTION MUCOUS MEM (16:40)
--- NOTE | 2022-03-21 16:41 | PC.NURSE ---
pt medicated per order
[2022-03-21 16:42] LABS: Basophils Percent Auto 0.4 % (0-2); Eosinophils Percent Auto 0.4 % (0-4); Hematocrit 39.5 % (42.0-52.0); Hemoglobin 13.6 g/dl (14.0-18.0); Imm Gran Abs Auto 0.03 X10*3/uL (0.00-0.03); Imm Gran Pct Auto 0.4 % (0.0-0.4); Lymphocytes Percent Auto 13.5 % (20-40); Mean Corpuscular HGB Conc 34.4 g/dl (31.0-36.0); Mean Corpuscular Hemoglobin 30.2 pg (27.0-33.0); Mean Corpuscular Volume 87.8 fL (80.0-98.0); Mean Platelet Volume 9.3 fL (9.4-12.4); Monocytes Absolute Auto 0.3 X10*3/uL (0.1-1.2); Monocytes Percent Auto 4.1 % (2-11); Neutrophils Absolute Auto 5.8 x10*3/uL (2.0-8.3); Neutrophils Percent Auto 81.2 % (45-73); Platelet Count 125 X10*3/uL (160-400); Red Cell Distribution Width 13.4 % (11.0-16.0); White Blood Count 7.1 X10*3/uL (4.8-10.8)
[2022-03-21 16:45] LABS: Appearance Urine CLEAR; Color Urine YELLOW; Glucose Urine UA NEG (NEG); Leukocyte Esterase Urine NEG (NEG); Nitrite Urine NEG (NEG); PH 6.5 (5.0-8.0); Specific Gravity - Urine <= 1.005 (1.005-1.025); UACC Culture Trigger NO; Urine Blood TRACE (NEG); Urine Ketones NEG (NEG); Urine Protein NEG (NEG-TRACE)
[2022-03-21 16:46] LABS: Prothrombin Time 11.3 SEC (10.0-13.1)
[2022-03-21 16:56] LABS: Ethanol 158 mg/dL
[2022-03-21 16:57] LABS: RBC Urine 0-2 /HPF (0); Squamous Epithelial Cell Urine TRACE /LPF; WBC Urine 0 /HPF (0-4)
[2022-03-21] MEDS: Albuterol Sulfate 90 MCG 8 GM INHALER 4 PUFF INHALE (16:57)
[2022-03-21 16:59] LABS: Alanine Aminotransferase 22 U/L (0-40); Albumin Level 4.2 g/dL (3.5-5.0); Alkaline Phosphatase 108 U/L (39-117); Anion Gap 16 (12-20); Aspartate Amino Transferase 32 U/L (5-37); Blood Urea Nitrogen 5 mg/dL (9-16); Calcium 8.8 mg/dL (8.4-10.2); Carbon Dioxide 23 mmol/L (22-29); Chloride 103 mmol/L (96-108); Creatinine Clr Calc Pharmacy 117.6; Estimated Glomerular Filt Rate > 60; Glucose Random 132 mg/dL (60-115); Lipase 16 U/L (8-78); Magnesium 1.8 mg/dL (1.6-2.6); Potassium 3.4 mmol/L (3.3-5.1); Sodium 139 mmol/L (135-145); Total Protein 6.9 g/dL (6.5-8.0)
[2022-03-21 17:00] VITALS: PULSE 97; RESP 18; O2SAT 98
[2022-03-21 17:06] LABS: B Type Natriuretic Peptide 55 pg/mL (<100); Troponin-I High Sensitivity 4.7 ng/L (<3.5-35.0)
--- NOTE | 2022-03-21 18:11 | MHC.RECOVSUP ---
? Reason for consult Recovery support o Current location: [facility] o Identified substance use concern: Alcohol - Withdrawal - Seeking ATS (detox) - Support ? Intervention: o ATS bed search started [id number] o Community resources provided o Harm reduction discussion ? Plan: o Patient to follow up with [facility] after discharge ? Additional information: met with Patient and patient stated that he wants to go to detox that he has bad withdrawal.. A bed was found at [facility].. But patient did not have his Many Meds with him at the moment.. He stated that he had them all in [place].. Larry stated that Patient could come in the Morning with his meds and that they would have a bed for him in the Morning..
[2022-03-21] MEDS: chlordiazePOXIDE HCl 25 MG CAPSULE 50 MG PO (18:12)
[2022-03-21] MEDS: Ketorolac Tromethamine 30 MG/ML VIAL IVPUSH (18:12)
[2022-03-21 18:58] LABS: COVID-19 Test Negative (Negative); IDNOW Serial# 16C4AD1C
[2022-03-21 20:30] VITALS: BP 154/70; PULSE 82; RESP 16; TEMP 36.9; O2SAT 95
[2022-03-21] MEDS: diazePAM 2 MG TABLET PO (20:48)
== END 2022-03-22 02:15 | disposition home or self-care (01) ==
PROVIDERS: Physician Assistant Medical; Emergency Provider Emergency Medicine
DX: D73.2 Chronic congestive splenomegaly (principal); K76.0 Fatty (change of) liver, not elsewhere classified; R07.89 Other chest pain; R06.02 Shortness of breath; R42 Dizziness and giddiness; R51.9 Headache, unspecified; M54.50 Low back pain, unspecified; M54.6 Pain in thoracic spine; M54.2 Cervicalgia; R11.0 Nausea; R10.9 Unspecified abdominal pain; F10.29 Alcohol dependence with unspecified alcohol-induced disorder; Y90.6 Blood alcohol level of 120-199 mg/100 ml; F17.210 Nicotine dependence, cigarettes, uncomplicated; F11.10 Opioid abuse, uncomplicated; F14.10 Cocaine abuse, uncomplicated; K74.60 Unspecified cirrhosis of liver; Z20.822 Contact with and (suspected) exposure to COVID-19; Z79.899 Other long term (current) drug therapy; Z71.6 Tobacco abuse counseling; Z87.820 Personal history of traumatic brain injury
CPT/HCPCS: 36415; 70450; 71046; 71250; 72125; 74176; 80053; 81001; 82077; 83690; 83735; 83880; 84484; 85025; 85610; 87635; 93005; 94640; 99285; J1885

== ENCOUNTER 2022-05-07 19:11 | Emergency (ER) | payer MEDICARE, MEDICAID, SELFPAY ==
--- NOTE | ~2022-05-07 | XR_ITS ---
Indication: Pain EXAMINATION: Right ankle, right elbow. 3 views the right elbow demonstrate a minimally prominent posterior fat pad which may indicate an effusion. There is degeneration in the elbow and subtle lucency in the radial head. Fracture cannot be excluded here. 3 views of the right ankle demonstrate hardware. No evidence for hardware failure. There is degeneration. No acute fracture or dislocation. XR/XR ankle RT min 3V IMPRESSION: Hardware in the right ankle. No acute bony finding. Findings suggest a small effusion in the right elbow and degeneration in addition there is subtle lucency in the region of the radial head. A fracture cannot be excluded in the setting of trauma. Correlation recommended clinically.
--- NOTE | ~2022-05-07 | CT_ITS ---
EXAMINATION: CT HEAD WITHOUT CONTRAST CLINICAL INFORMATION: History of traumatic brain injury. COMPARISON: 03/21/2022 TECHNIQUE: Contiguous axial imaging was performed from the skull base to vertex without intravenous administration of contrast. This CT examination was performed using dose optimization techniques as appropriate, variously including the following: *Automated exposure control *Adjustment of mA and/or kV according to patient size (this includes techniques or standardized protocols for targeted exams where dose is matched to indication/reason for exam; i.e. extremities or head) *Use of iterative reconstruction technique DLP: 676 mGy-cm FINDINGS: There is no evidence of acute intracranial hemorrhage or territorial infarction. No abnormal mass effect or midline shift is seen. Roberts to white matter differentiation is well preserved. No extra-axial fluid collections are identified. Patchy subcortical and periventricular white matter low-attenuation changes are stable. Chronic bilateral gangliocapsular lacunar infarcts. Generalized brain parenchymal atrophy. No distal portion ventriculomegaly. The osseous structures and soft tissues are normal. The mastoid air cells and visualized portions of the paranasal sinuses are well-aerated. Previous left parietal/pterional craniotomy/postsurgical changes.. CT/CT head/brain wo IV con IMPRESSION: No acute intracranial pathology.
--- NOTE | ~2022-05-07 | XR_ITS ---
Indication: Pain EXAMINATION: Right ankle, right elbow. 3 views the right elbow demonstrate a minimally prominent posterior fat pad which may indicate an effusion. There is degeneration in the elbow and subtle lucency in the radial head. Fracture cannot be excluded here. 3 views of the right ankle demonstrate hardware. No evidence for hardware failure. There is degeneration. No acute fracture or dislocation. XR/XR elbow RT min 3V IMPRESSION: Hardware in the right ankle. No acute bony finding. Findings suggest a small effusion in the right elbow and degeneration in addition there is subtle lucency in the region of the radial head. A fracture cannot be excluded in the setting of trauma. Correlation recommended clinically.
[2022-05-07 19:27] VITALS: BP 119/91; BP 142/86; PULSE 108; PULSE 82; RESP 20; TEMP 36.8; O2SAT 97; BMI 32.5
--- NOTE | 2022-05-07 19:40 | ECG_ITS ---
Test Reason : EXTREMLY PAINFUL ANKLE Blood Pressure : / mmHG Vent. Rate : 105 BPM Atrial Rate : 105 BPM P-R Int : 162 ms QRS Dur : 080 ms QT Int : 330 ms P-R-T Axes : 032 021 -18 degrees QTc Int : 436 ms Sinus tachycardia Nonspecific T wave abnormality Abnormal ECG When compared with ECG of 21-MAR-2022 15:52, T wave inversion more evident in Inferior leads Nonspecific T wave abnormality now evident in Anterior leads Referred By: Abigail Momin Electronically Signed By:VONDA SCHMIDT
--- NOTE | 2022-05-07 19:40 | ED.GENADULT ---
HPI - General Adult General Chief complaint: Extremity Problem Stated complaint: tingling feeling in his rt arm Time Seen by Provider: 05/07/22 19:26 Source: patient and EMS Mode of arrival: EMS Limitations: no limitations History of Present Illness HPI narrative: Patient is a 56 year old male presenting to the emergency department today with pain to his right elbow and his right ankle. Patient states that he hasn't had any trauma that he can remember but for the last 2 days, his right elbow and right ankle have been bothering him. Patient states that he is feeling very overwhelmed and he would like to talk to mental health help. Patient denies any dizziness, lightheadedness, abdominal pain, nausea, vomiting, fever, chills, blurry vision, double vision, loss of vision, chest pain, difficulty breathing, shortness of breath, back pain, night sweats, pain with urination, increased urinary frequency, increased urinary urgency, blood in his urine or stool, syncope or a near syncopal episode, recent trauma or falls, bowel incontinence, bladder incontinence, bowel retention, bladder retention, or any other complaints at this time. Patient states that he does have a history of a TBI. Onset (ago): day(s) (2) Location: right, upper extremity (wrist) and lower extremity (ankle) Severity: mild Severity scale (1-10): 2 Relieving factors: none Exacerbating factors: movement Associated symptoms: denies other symptoms Treatments prior to arrival: none Related Data Home Medications Medication Instructions Recorded Confirmed bupropion HCl 300 mg 24 hr tablet, 1 tab PO DAILY 01/21/21 05/07/22 extended release clonidine HCl 0.1 mg tablet 1 tab PO BID 01/21/21 05/07/22 furosemide 40 mg tablet 1 tab PO DAILY 01/21/21 05/07/22 omeprazole 20 mg capsule,delayed 40 mg PO DAILY 01/21/21 05/07/22 release paroxetine HCl 40 mg tablet 1 tab PO DAILY 01/21/21 05/07/22 spironolactone 25 mg tablet 1 tab PO DAILY 01/21/21 05/07/22 tamsulosin 0.4 mg capsule 2 cap PO DAILY 01/21/21 05/07/22 atorvastatin 40 mg tablet 1 tab PO BEDTIME 05/14/21 05/07/22 finasteride 5 mg tablet 1 tab PO DAILY 05/14/21 05/07/22 blood sugar diagnostic (FreeStyle #10 ea 09/08/21 02/11/22 Lite Strips) docusate sodium 100 mg capsule 100 mg PO BID PRN constipation 09/08/21 05/07/22 folic acid 1 mg tablet 1 mg PO DAILY 09/08/21 05/07/22 hydroxyzine HCl 25 mg tablet 25 mg PO Q4H PRN Anxiety 09/08/21 05/07/22 lancets 30 gauge (Ultra-Care #100 ea 09/08/21 02/11/22 Lancets) pen needle,diabetic dual safty 30 #100 ea 09/08/21 02/11/22 gauge x 3/16 (BD AutoShield Duo Pen Needle) bupropion HCl 150 mg tablet,12 hr 1 tab PO DAILY 10/12/21 05/07/22 sustained-release aripiprazole 5 mg tablet 5 mg PO DAILY 02/11/22 05/07/22 famotidine 20 mg tablet 1 tab PO BID 02/11/22 05/07/22 potassium chloride 10 mEq 10 meq PO DAILY 02/11/22 05/07/22 tablet,extended release Previous Rx's Medication Instructions Recorded albuterol sulfate 90 mcg/actuation 1 inh inhalation QID PRN shortness 05/19/21 aerosol inhaler (ProAir HFA) of breath or wheezing #8.5 grams acetaminophen 500 mg tablet 1,000 mg PO QID PRN fever or pain 03/21/22 (Tylenol Extra Strength) #14 tabs ondansetron 4 mg disintegrating 4 mg PO Q6H PRN nausea and 03/21/22 tablet vomiting #10 tabs Allergies Allergy/AdvReac Type Severity Reaction Status Date / Time No Known Allergies Allergy Verified 10/12/21 10:58 [No Known Allergies*] Review of Systems Constitutional: Constitutional: Reports no additional constitutional complaints, Denies chills, Denies fever(s) and Denies night sweats Eyes: Eyes: Reports no additional eye complaints, Denies blurry vision, Denies change in vision, Denies diplopia, Denies eye discharge, Denies loss of vision and Denies eye pain ENT: Denies dizziness Cardiovascular: Cardiovascular: Reports no additional cardiovascular complaints, Denies chest pain, Denies lightheadedness, Denies Loss of Consciousness and Denies dyspnea Respiratory: Respiratory: Reports no additional respiratory complaints and Denies dyspnea Gastrointestinal: Gastrointestinal: Reports no additional gastrointestinal complaints, Denies abdominal pain, Denies melena, Denies hematochezia, Denies change in bowel habits and Denies change in stool character Genitourinary: Genitourinary: Reports no additional male genitourinary complaints, Denies hematuria, Denies oliguria, Denies difficulty urinating, Denies dysuria, Denies urinary frequency, Denies urinary hesitancy, Denies urinary incontinence and Denies urinary urgency Musculoskeletal: Musculoskeletal: Reports no additional musculoskeletal complaints, Denies numbness and Denies tingling Comments: right wrist and right ankle pain Neurologic: Denies dizziness, Denies loss of vision, Denies numbness and Denies tingling Psychiatric: Psychiatric: Reports no additional psychiatric complaints Endocrine: Endocrine: Reports no additional endocrine complaints Hematologic/Lymphatic: Hematologic/Lymphatic: Reports no additional hematologic/lymphatic complaints Allergic/Immunologic: Allergic/Immunologic: Reports no additional allergic/immunologic complaints [facility] Past Medical History Attestation statement: The following information was validated with the patient. Source: old records reviewed Medical History Acute interstitial pneumonitis Alcohol use disorder, moderate, dependence Anxiety ARDS (adult respiratory distress syndrome) ARDS (adult respiratory distress syndrome) CHF (congestive heart failure) Cirrhosis of liver Cocaine abuse Community acquired pneumonia COPD (chronic obstructive pulmonary disease) COPD (chronic obstructive pulmonary disease) COPD exacerbation COPD exacerbation Diabetes ETOH abuse Hypertension Hypoxia ILD (interstitial lung disease) Interstitial lung disease Liver cirrhosis Obesity (BMI 35.0-39.9 without comorbidity) Obesity (BMI 35.0-39.9 without comorbidity) KATHYA (obstructive sleep apnea) KATHYA (obstructive sleep apnea) Pneumonia Pneumonia Pneumonitis Sepsis Smoker TBI (traumatic brain injury) Surgical History H/O brain surgery No significant past surgical history Family History Family History Other Lymphoma Social History Social History Household Members: None Housing: Homeless Housing Other:: Sober House Do you presently have visiting nurse or other home services: No Alcohol intake: current Alcohol intake frequency: 3 or more drinks per day Alcohol type: hard liquor Patient Tobacco Use Status: Never used Tobacco Tobacco use type: Cigarette Cigarette Packs Per Day: 0.5 Cigarettes Per Day: 7 Second Hand Smoke Exposure: Yes Substance Use Type: Crack/Cocaine and Heroin Advance Directives: Yes Advance Directives on File: Yes Advance Directives Date on File: 05/20/21 service: No Current occupational status: unemployed and disabled Physical Exam ED Vital Signs: Vital Signs - 24 hr 05/07/22 19:27 05/07/22 19:50 05/07/22 22:00 Temperature 98.2 F 98.5 F 97.4 F Pulse Rate 108 H 104 H 96 Respiratory Rate 20 16 16 Blood Pressure 119/91 H 97/62 Pulse Oximetry 97 98 98 Oxygen Delivery Method Room Air Room Air Room Air BMI result Body Mass Index 32.5 Const General: cooperative, no acute distress, alert and awake Nutritional Appearance: well nourished Orientation/consciousness: patient oriented x3 Limitations: no limitations HENMT Head: Yes normal to inspection and Yes atraumatic Ears: hearing grossly normal bilaterally and external ears normal General nose exam: Normal external nose present, no nasal discharge noted and no epistaxis Face and sinus: Yes normal facial exam, No abrasion and No laceration Mouth: Normal oral and palatal mucosa present, no drooling and no muffled voice Eyes General: appearance normal, both eyes and all related structures Periorbital: periorbital findings normal Eyelids: Yes eyelids normal Conjunctivae: conjunctivae normal Pupils: Equal, round and reactive pupils present EOM: EOMs intact bilaterally Neck Neck: Yes normal visual inspection, Yes full ROM and Yes no lymphadenopathy Chest Chest palpation & inspection: normal inspection of the chest Resp Effort & Inspection: normal respiratory effort and able to speak in complete sentences Auscultation: clear to auscultation bilaterally Cardio Rate: regular rate Rhythm: regular rhythm GI Inspection: Yes normal to inspection Neuro General: patient oriented x3 and moves all extremities Cranial nerves: Yes Equal, round and reactive pupils present Cognition (Neuro): normal cognition Motor exam (neuro): 5/5 motor strength present throughout Sensory Exam: Normal double simultaneous stimulation for sensation Coordination: [id number] test normal Extrem General: Yes normal to inspection, Yes full ROM and Yes capillary refill normal Psych Appearance: grossly normal Mental Status: mental status grossly normal Affect: normal affect Attitude: cooperative Thought process: Normal thought process present Thought content: Normal thought content present Insight: Good insight present (Psych) NIH Stroke Scale Internal: Initial- Upon Arrival Time: 19:40 Level of Consciousness: Alert Level of Consciousness Questions: Answers both questions correctly Level of Consciousness Commands: Performs both tasks correctly Best Gaze: Normal Visual: No visual loss Facial Palsy: Normal Motor Arm (Right): No drift Motor Arm (Left): No drift Motor Leg (Right): No drift Motor Leg (Left): No drift Limb Ataxia: Absent Sensory: Normal Best Language: No aphasia Dysarthia: Normal Extinction and Inattention: No abnormality Score: 0 Procedures Orthopedic Splinting/Casting Injury #1: Side: right Upper Extremity Injury Location: elbow Upper Extremity Immobilizer: sling/shoulder immobilizer Injury #2: Side: right Lower Extremity Injury Location: ankle Lower Extremity Immobilizer: Brandon wrap Medical Decision Making MDM Narrative Medical decision making narrative: Patient is a 56 year old male presenting to the emergency department today with right elbow pain, right ankle pain, and feeling overwhelmed. Patient's physical exam was unremarkable. Patient's blood work showed an elevated lactic acid of 2.8. Multiple attempts were made to establish an IV on this patient and after the 2nd unsuccessful attempt, he refused to allow anymore attempts. Patient drank multiple large glasses of water while in the emergency department. Patient refused to have a repeat lactic drawn. Patient's EKG was unremarkable. Patient's head CT showed no acute process. Patient's right elbow x-ray showed a possible occult radial head fracture. Patient's right ankle x-ray was unremarkable. I explained my physical exam findings as well as all test results to the patient. I answered all questions asked by the patient. Patient received IM Toradol which he stated helped his pain significantly. Patient's right arm was placed in a sling. Patient's right ankle was wrapped with brandon, per his request. Patient requested to leave before talking to anyone from [facility] or the CARE team. He again denied any suicidal or homicidal ideation. I stressed the importance of the patient taking his medication as prescribed. I stressed the importance of the patient following up with his primary care provider and an orthopedist. I stressed the importance of the patient returning to the emergency department immediately if his symptoms were to worsen or if he were to develop any dizziness, shortness of breath, difficulty breathing, chest pain, blurry vision, loss of vision, nausea, vomiting, abdominal pain, fever, chills, back pain, or any other complaints. Patient verbalized agreement and understanding with this treatment plan and discharge. Medical Records Medical records reviewed: Yes I reviewed the patient's medical records. Lab Data Lab results reviewed: Yes I reviewed the patient's lab results. Result diagrams: 05/07/22 20:33 05/07/22 20:33 Labs: Lab Results 05/07/22 05/07/22 05/07/22 Range/Units 20:33 20:33 20:33 WBC 10.6 (4.8-10.8) X10*3/uL RBC 4.82 (4.60-5.80) X10*6/uL Hgb 14.8 (14.0-18.0) g/dl Hct 41.8 L (42.0-52.0) % MCV 86.7 (80.0-98.0) fL MCH 30.7 (27.0-33.0) pg MCHC 35.4 (31.0-36.0) g/dl RDW 13.2 (11.0-16.0) % Plt Count 178 D (160-400) X10*3/uL MPV 9.5 (9.4-12.4) fL Immature Gran % (Auto) 0.7 H (0.0-0.4) % Neut % (Auto) 58.4 (45-73) % Lymph % (Auto) 32.0 (20-40) % Jones % (Auto) 6.8 (2-11) % Eos % (Auto) 1.2 (0-4) % Baso % (Auto) 0.9 (0-2) % Lymph # (Auto) 3.4 (1.2-4.9) X10*3/uL Jones # (Auto) 0.7 (0.1-1.2) X10*3/uL Eos # (Auto) 0.1 (0.0-0.4) X10*3/uL Baso # (Auto) 0.1 (0.0-0.2) X10*3/uL Abs Immat Gran (auto) 0.07 H (0.00-0.03) X10*3/uL Absolute Neuts (auto) 6.2 (2.0-8.3) x10*3/uL Absolute Nucleated RBC 0.000 (0.0-0.012) X10*3/uL Nucleated RBC % (auto) 0.0 (0.0-0.2) /100WBC Sodium 141 (135-145) mmol/L Potassium 3.8 (3.3-5.1) mmol/L Chloride 107 (96-108) mmol/L Carbon Dioxide 18 L (22-29) mmol/L Anion Gap 20 (12-20) BUN 8 L D (9-16) mg/dL Creatinine 1.15 (0.5-1.4) mg/dL Estim Creat Clear Calc 81.5 Estimated GFR > 60 Random Glucose 153 H (60-115) mg/dL Lactic Acid 2.8 H* (0.5-2.0) mmol/L Calcium 9.2 (8.4-10.2) mg/dL Total Bilirubin 1.1 H (0.0-1.0) mg/dL AST 28 (5-37) U/L ALT 30 (0-40) U/L Alkaline Phosphatase 103 (39-117) U/L Total Creatine Kinase 42 (38-174) U/L Troponin I High Sens (<3.5-35.0) ng/L Total Protein 7.3 (6.5-8.0) g/dL Albumin 4.3 (3.5-5.0) g/dL 05/07/22 Range/Units 20:33 WBC (4.8-10.8) X10*3/uL RBC (4.60-5.80) X10*6/uL Hgb (14.0-18.0) g/dl Hct (42.0-52.0) % MCV (80.0-98.0) fL MCH (27.0-33.0) pg MCHC (31.0-36.0) g/dl RDW (11.0-16.0) % Plt Count (160-400) X10*3/uL MPV (9.4-12.4) fL Immature Gran % (Auto) (0.0-0.4) % Neut % (Auto) (45-73) % Lymph % (Auto) (20-40) % Jones % (Auto) (2-11) % Eos % (Auto) (0-4) % Baso % (Auto) (0-2) % Lymph # (Auto) (1.2-4.9) X10*3/uL Jones # (Auto) (0.1-1.2) X10*3/uL Eos # (Auto) (0.0-0.4) X10*3/uL Baso # (Auto) (0.0-0.2) X10*3/uL Abs Immat Gran (auto) (0.00-0.03) X10*3/uL Absolute Neuts (auto) (2.0-8.3) x10*3/uL Absolute Nucleated RBC (0.0-0.012) X10*3/uL Nucleated RBC % (auto) (0.0-0.2) /100WBC Sodium (135-145) mmol/L Potassium (3.3-5.1) mmol/L Chloride (96-108) mmol/L Carbon Dioxide (22-29) mmol/L Anion Gap (12-20) BUN (9-16) mg/dL Creatinine (0.5-1.4) mg/dL Estim Creat Clear Calc Estimated GFR Random Glucose (60-115) mg/dL Lactic Acid (0.5-2.0) mmol/L Calcium (8.4-10.2) mg/dL Total Bilirubin (0.0-1.0) mg/dL AST (5-37) U/L ALT (0-40) U/L Alkaline Phosphatase (39-117) U/L Total Creatine Kinase (38-174) U/L Troponin I High Sens 5.4 (<3.5-35.0) ng/L Total Protein (6.5-8.0) g/dL Albumin (3.5-5.0) g/dL Imaging Data Right ankle and right elbow x-ray: Attestation: I personally reviewed and interpreted this imaging study as follows: My impression: Possible occult radial head fracture. Radiologist's impression: EXAMINATION: Right ankle, right elbow. 3 views the right elbow demonstrate a minimally prominent posterior fat pad which may indicate an effusion. There is degeneration in the elbow and subtle lucency in the radial head. Fracture cannot be excluded here. 3 views of the right ankle demonstrate hardware. No evidence for hardware failure. There is degeneration. No acute fracture or dislocation. XR/XR elbow RT min 3V IMPRESSION: Hardware in the right ankle. No acute bony finding. ? Findings suggest a small effusion in the right elbow and degeneration in addition there is subtle lucency in the region of the radial head. A fracture cannot be excluded in the setting of trauma. Correlation recommended clinically. Dictated By: Derek Anne MD Signed By: Electronically signed by Derek Anne MD 05/07/222113 Discharge Plan Discharge Clinical Impression: Pain in right elbow Patient Disposition: Home, Self-Care Instructions: Elbow Fracture (ED) Additional Instructions: Follow up with your primary care provider and an orthopedic provider. Return to the emergency department immediately if your symptoms worsen or if you develop any dizziness, shortness of breath, difficulty breathing, chest pain, blurry vision, loss of vision, nausea, vomiting, abdominal pain, fever, chills, back pain, or any other complaints. Prescriptions: No Action furosemide 40 mg tablet 1 tab PO DAILY clonidine HCl 0.1 mg tablet 1 tab PO BID spironolactone 25 mg tablet 1 tab PO DAILY tamsulosin 0.4 mg capsule 2 cap PO DAILY omeprazole 20 mg capsule,delayed release(DR/EC) 40 mg PO DAILY paroxetine HCl 40 mg tablet 1 tab PO DAILY bupropion HCl 300 mg tablet extended release 24 hr 1 tab PO DAILY atorvastatin 40 mg tablet 1 tab PO BEDTIME finasteride 5 mg tablet 1 tab PO DAILY albuterol sulfate [ProAir HFA] 90 mcg/actuation HFA aerosol inhaler 1 inh inhalation QID PRN (Reason: shortness of breath or wheezing) Qty: 8.5 0RF bupropion HCl 150 mg tablet sustained-release 12 hr 1 tab PO DAILY famotidine 20 mg tablet 1 tab PO BID potassium chloride 10 mEq Tablet Extended Release 10 meq PO DAILY aripiprazole 5 mg Tablet 5 mg PO DAILY ondansetron 4 mg tablet,disintegrating 4 mg PO Q6H PRN (Reason: nausea and vomiting) Qty: 10 0RF acetaminophen [Tylenol Extra Strength] 500 mg tablet 1,000 mg PO QID PRN (Reason: fever or pain) Qty: 14 0RF hydroxyzine HCl 25 mg tablet 25 mg PO Q4H PRN (Reason: Anxiety) folic acid 1 mg tablet 1 mg PO DAILY (DME) FreeStyle Lite Strips Strip See Rx Instructions Not Applicable TID Qty: 10 Rx Instructions: As directed docusate sodium 100 mg capsule 100 mg PO BID PRN (Reason: constipation) (DME) lancets [Ultra-Care Lancets] 30 gauge misc See Rx Instructions .ROUTE TID Qty: 100 Rx Instructions: As directed (DME) BD AutoShield Duo Pen Needle 30 gauge x 3/16 needle See Rx Instructions .ROUTE .MEDSUPPLY Qty: 100 Rx Instructions: As directed Referrals: [facility] [place] Family Medicine [Provider Group] (Call to establish and follow up with a primary care provider. If you already have a primary care provider, please follow up with them. ) [facility] [place] Primary Care, Valentina [Provider Group] (Call to establish and follow up with a primary care provider. If you already have a primary care provider, please follow up with them. ) [facility] [place] Primary Care,Johny [Provider Group] (Call to establish and follow up with a primary care provider. If you already have a primary care provider, please follow up with them. ) [facility] [Provider Group] (Call to establish and follow up with an orthopedic provider. ) Interventions: ED Discharge Assessment Last Done: 05/07/22 23:50 Discharge Date/Time: 05/07/22 23:51
[2022-05-07 19:50] VITALS: PULSE 104; RESP 16; TEMP 36.9; O2SAT 98
[2022-05-07 20:39] LABS: MANUAL DIFF FLAG NO
[2022-05-07 20:40] LABS: Basophils Absolute Auto 0.1 X10*3/uL (0.0-0.2); Basophils Percent Auto 0.9 % (0-2); Eosinophils Absolute Auto 0.1 X10*3/uL (0.0-0.4); Eosinophils Percent Auto 1.2 % (0-4); Hematocrit 41.8 % (42.0-52.0); Hemoglobin 14.8 g/dl (14.0-18.0); Imm Gran Abs Auto 0.07 X10*3/uL (0.00-0.03); Imm Gran Pct Auto 0.7 % (0.0-0.4); Lymphocytes Absolute Auto 3.4 X10*3/uL (1.2-4.9); Mean Corpuscular HGB Conc 35.4 g/dl (31.0-36.0); Mean Corpuscular Hemoglobin 30.7 pg (27.0-33.0); Mean Corpuscular Volume 86.7 fL (80.0-98.0); Mean Platelet Volume 9.5 fL (9.4-12.4); Monocytes Absolute Auto 0.7 X10*3/uL (0.1-1.2); Monocytes Percent Auto 6.8 % (2-11); Neutrophils Absolute Auto 6.2 x10*3/uL (2.0-8.3); Neutrophils Percent Auto 58.4 % (45-73); Platelet Count 178 X10*3/uL (160-400); Red Blood Count 4.82 X10*6/uL (4.60-5.80); Red Cell Distribution Width 13.2 % (11.0-16.0); White Blood Count 10.6 X10*3/uL (4.8-10.8)
[2022-05-07] MEDS: Ketorolac Tromethamine 15 MG/ML VIAL IM (20:49)
[2022-05-07 20:56] LABS: Alanine Aminotransferase 30 U/L (0-40); Albumin Level 4.3 g/dL (3.5-5.0); Alkaline Phosphatase 103 U/L (39-117); Anion Gap 20 (12-20); Aspartate Amino Transferase 28 U/L (5-37); Bilirubin Total 1.1 mg/dL (0.0-1.0); Blood Urea Nitrogen 8 mg/dL (9-16); Calcium 9.2 mg/dL (8.4-10.2); Carbon Dioxide 18 mmol/L (22-29); Chloride 107 mmol/L (96-108); Creatinine Clr Calc Pharmacy 81.5; Estimated Glomerular Filt Rate > 60; Glucose Random 153 mg/dL (60-115); Lactic Acid 2.8 mmol/L (0.5-2.0); Potassium 3.8 mmol/L (3.3-5.1); Sodium 141 mmol/L (135-145); Total Protein 7.3 g/dL (6.5-8.0)
[2022-05-07 21:03] LABS: Troponin-I High Sensitivity 5.4 ng/L (<3.5-35.0)
[2022-05-07 22:00] VITALS: BP 97/62; PULSE 96; RESP 16; TEMP 36.3; O2SAT 98
[2022-05-07 22:37] LABS: Reflex Lactate? Lactic Acid Added
--- NOTE | 2022-05-07 23:09 | PC.NURSE ---
RN AND PROVIDER IS AWARE THAT PATIENT REFUSED TO HAVE LACTAIC ACID TO BE DRAWN .
== END 2022-05-07 23:51 | disposition home or self-care (01) ==
PROVIDERS: Physician Assistant Medical; Emergency Provider Student in an Organized Health Care Education/Training Program
DX: M25.521 Pain in right elbow (principal); R51.9 Headache, unspecified; M25.571 Pain in right ankle and joints of right foot; Z79.899 Other long term (current) drug therapy
CPT/HCPCS: 29125; 29515; 36415; 70450; 73080; 73610; 80053; 82550; 83605; 84484; 85025; 93005; 96372; 99284; J1885

== ENCOUNTER 2022-09-29 12:26 | Emergency (ER) | payer MEDICARE, MEDICAID, SELFPAY ==
--- NOTE | 2022-09-29 | ECG_ITS ---
Test Reason : Chest Pain Blood Pressure : / mmHG Vent. Rate : 106 BPM Atrial Rate : 106 BPM P-R Int : 166 ms QRS Dur : 088 ms QT Int : 326 ms P-R-T Axes : 040 025 025 degrees QTc Int : 433 ms Sinus tachycardia Otherwise normal ECG When compared with ECG of 07-MAY-2022 19:43, Inferior T wave abnormality improved Referred By: Generic ED Physician Electronically Signed By:GELA OWENS
--- NOTE | ~2022-09-29 | XR_ITS ---
EXAMINATION: XR CHEST CLINICAL INFORMATION: Chest pain COMPARISON: 03/21/2022 TECHNIQUE: 2 views of the chest were obtained. FINDINGS: Cardiac leads overlie the chest. The lungs are well expanded. There is no focal consolidation, edema, or effusion. No pneumothorax. The cardiomediastinal silhouette is within normal limits. No acute osseous abnormality. XR/XR chest 2V IMPRESSION: Clear lungs.
[2022-09-29 12:37] VITALS: BP 149/111; BP 163/135; PULSE 107; PULSE 114; RESP 18; TEMP 37.3; O2SAT 95; O2SAT 98; BMI 30.1
--- NOTE | 2022-09-29 12:42 | ED.CHESTPAIN ---
HPI - Chest Pain General Chief Complaint: Chest Pain Stated Complaint: From SNF, chest pain since 3am per EMS Time Seen by Provider: 09/29/22 12:42 Source: patient and EMS Mode of arrival: EMS Limitations: no limitations History of Present Illness HPI narrative: Patient is a 57 year old assigned male at with a history of interstitial lung disease, TBI, and alcohol abuse, presenting to the emergency department today with chest pain. Patient states that since 0300 this morning he has had chest pain that he describes as being central and hurting more when you push on his chest. Patient denies any dizziness, lightheadedness, abdominal pain, nausea, vomiting, fever, chills, blurry vision, double vision, loss of vision, difficulty breathing, shortness of breath, back pain, night sweats, pain with urination, increased urinary frequency, increased urinary urgency, blood in his urine or stool, syncope or a near syncopal episode, recent trauma or falls, bowel incontinence, bladder incontinence, bowel retention, bladder retention, or any other complaints at this time. MD complaint: chest pain Onset (ago): hour(s) Pain radiation: none Severity: mild Pain scale (0-10): 3 Quality: dull Relieving factors: nothing Exacerbating factors: palpation and movement Treatment prior to arrival: none Related Data Home Medications Medication Instructions Recorded Confirmed bupropion HCl 300 mg 24 hr tablet, 1 tab PO DAILY 01/21/21 05/07/22 extended release clonidine HCl 0.1 mg tablet 1 tab PO BID 01/21/21 05/07/22 furosemide 40 mg tablet 1 tab PO DAILY 01/21/21 05/07/22 omeprazole 20 mg capsule,delayed 40 mg PO DAILY 01/21/21 05/07/22 release paroxetine HCl 40 mg tablet 1 tab PO DAILY 01/21/21 05/07/22 spironolactone 25 mg tablet 1 tab PO DAILY 01/21/21 05/07/22 tamsulosin 0.4 mg capsule 2 cap PO DAILY 01/21/21 05/07/22 atorvastatin 40 mg tablet 1 tab PO BEDTIME 05/14/21 05/07/22 finasteride 5 mg tablet 1 tab PO DAILY 05/14/21 05/07/22 blood sugar diagnostic (FreeStyle #10 ea 09/08/21 02/11/22 Lite Strips) docusate sodium 100 mg capsule 100 mg PO BID PRN constipation 09/08/21 05/07/22 folic acid 1 mg tablet 1 mg PO DAILY 09/08/21 05/07/22 hydroxyzine HCl 25 mg tablet 25 mg PO Q4H PRN Anxiety 09/08/21 05/07/22 lancets 30 gauge (Ultra-Care #100 ea 09/08/21 02/11/22 Lancets) pen needle,diabetic dual safty 30 #100 ea 09/08/21 02/11/22 gauge x 3/16 (BD AutoShield Duo Pen Needle) bupropion HCl 150 mg tablet,12 hr 1 tab PO DAILY 10/12/21 05/07/22 sustained-release aripiprazole 5 mg tablet 5 mg PO DAILY 02/11/22 05/07/22 famotidine 20 mg tablet 1 tab PO BID 02/11/22 05/07/22 potassium chloride 10 mEq 10 meq PO DAILY 02/11/22 05/07/22 tablet,extended release Previous Rx's Medication Instructions Recorded albuterol sulfate 90 mcg/actuation 1 inh inhalation QID PRN shortness 05/19/21 aerosol inhaler (ProAir HFA) of breath or wheezing #8.5 grams acetaminophen 500 mg tablet 1,000 mg PO QID PRN fever or pain 03/21/22 (Tylenol Extra Strength) #14 tabs ondansetron 4 mg disintegrating 4 mg PO Q6H PRN nausea and 03/21/22 tablet vomiting #10 tabs Allergies Allergy/AdvReac Type Severity Reaction Status Date / Time No Known Allergies Allergy Verified 10/12/21 10:58 [No Known Allergies*] Review of Systems Constitutional: Constitutional: Reports no additional constitutional complaints, Denies chills, Denies fever(s) and Denies night sweats Eyes: Eyes: Reports no additional eye complaints, Denies blurry vision, Denies change in vision, Denies diplopia, Denies eye discharge, Denies loss of vision and Denies eye pain ENT: Denies dizziness Cardiovascular: Cardiovascular: Reports no additional cardiovascular complaints, Reports chest pain, Denies lightheadedness, Denies Loss of Consciousness and Denies dyspnea Respiratory: Respiratory: Reports no additional respiratory complaints and Denies dyspnea Gastrointestinal: Gastrointestinal: Reports no additional gastrointestinal complaints, Denies abdominal pain, Denies melena, Denies hematochezia, Denies change in bowel habits and Denies change in stool character Genitourinary: Genitourinary: Reports no additional male genitourinary complaints, Denies hematuria, Denies oliguria, Denies difficulty urinating, Denies dysuria, Denies urinary frequency, Denies urinary hesitancy, Denies urinary incontinence and Denies urinary urgency Musculoskeletal: Musculoskeletal: Reports no additional musculoskeletal complaints, Denies numbness and Denies tingling Neurologic: Denies dizziness, Denies loss of vision, Denies numbness and Denies tingling Psychiatric: Psychiatric: Reports no additional psychiatric complaints Endocrine: Endocrine: Reports no additional endocrine complaints Hematologic/Lymphatic: Hematologic/Lymphatic: Reports no additional hematologic/lymphatic complaints Allergic/Immunologic: Allergic/Immunologic: Reports no additional allergic/immunologic complaints [facility] Past Medical History Attestation statement: The following information was validated with the patient. Source: old records reviewed and nursing notes reviewed Medical History Acute interstitial pneumonitis Alcohol use disorder, moderate, dependence Anxiety ARDS (adult respiratory distress syndrome) ARDS (adult respiratory distress syndrome) CHF (congestive heart failure) Cirrhosis of liver Cocaine abuse Community acquired pneumonia COPD (chronic obstructive pulmonary disease) COPD (chronic obstructive pulmonary disease) COPD exacerbation COPD exacerbation Diabetes ETOH abuse Hypertension Hypoxia ILD (interstitial lung disease) Interstitial lung disease Liver cirrhosis Obesity (BMI 35.0-39.9 without comorbidity) Obesity (BMI 35.0-39.9 without comorbidity) KATHYA (obstructive sleep apnea) KATHYA (obstructive sleep apnea) Pneumonia Pneumonia Pneumonitis Sepsis Smoker TBI (traumatic brain injury) Surgical History H/O brain surgery No significant past surgical history Family History Family History Other Lymphoma Social History Social History Household Members: None Housing: Homeless Housing Other:: Sober House Do you presently have visiting nurse or other home services: No Alcohol intake: current Alcohol intake frequency: 3 or more drinks per day Alcohol type: hard liquor Patient Tobacco Use Status: Never used Tobacco Tobacco use type: Cigarette Cigarette Packs Per Day: 0.5 Cigarettes Per Day: 7 Second Hand Smoke Exposure: Yes Use of substances other than those prescribed or required for medical reasons: Yes Substance Use Type: Crack/Cocaine and Heroin Advance Directives: Yes Advance Directives on File: Yes Advance Directives Date on File: 05/20/21 service: No Current occupational status: unemployed and disabled Physical Exam Vital Signs: Vital Signs: Last Vital Signs Temp 99.1 F 09/29/22 12:37 Pulse 94 09/29/22 13:33 Resp 15 09/29/22 13:33 BP 137/103 H 09/29/22 13:33 Pulse Ox 95 09/29/22 13:33 O2 Del Method 09/29/22 13:33 BMI result Body Mass Index 30.1 Const: General: cooperative, no acute distress, alert and awake Nutritional Appearance: well nourished Orientation/consciousness: patient oriented x3 Limitations: no limitations HEENT: Head: Yes normal to inspection and Yes atraumatic Ears: hearing grossly normal bilaterally and external ears normal General nose exam: Normal external nose present, no nasal discharge noted and no epistaxis Face and sinus: Yes normal facial exam, No abrasion and No laceration Mouth: Normal oral and palatal mucosa present, no drooling and no muffled voice Eyes: General: appearance normal, both eyes and all related structures Periorbital: periorbital findings normal Eyelids: Yes eyelids normal Conjunctivae: conjunctivae normal Pupils: Equal, round and reactive pupils present EOM: EOMs intact bilaterally Neck: Neck: Yes normal visual inspection, Yes full ROM and Yes no lymphadenopathy Chest: Chest palpation & inspection: normal inspection of the chest Resp: Effort & Inspection: normal respiratory effort and able to speak in complete sentences Auscultation: clear to auscultation bilaterally Cardio: Rate: regular rate Rhythm: regular rhythm GI: Inspection: Yes normal to inspection Palpation (GI): Soft to palpation, not firm, nontender, no guarding and not rigid Neuro: General: patient oriented x3 and moves all extremities Cranial nerves: Yes Equal, round and reactive pupils present Cognition (Neuro): normal cognition Motor exam (neuro): 5/5 motor strength present throughout Sensory Exam: Normal double simultaneous stimulation for sensation Coordination: [id number] test normal Extrem: General: Yes normal to inspection, Yes full ROM and Yes capillary refill normal Psych: Appearance: grossly normal Mental Status: mental status grossly normal Affect: normal affect Attitude: cooperative Thought process: Normal thought process present Thought content: Normal thought content present Insight: Good insight present (Psych) Medications Administered Discontinued Medications Generic Name Dose Route Start Last Admin Trade Name Wong PRN Reason Stop Dose Admin Acetaminophen 650 mg 09/29/22 12:46 09/29/22 13:00 Acetaminophen 325 Mg Tablet PO 09/29/22 12:47 650 mg ONCE ONE Administration Sodium Chloride 1,000 mls @ 999 mls/hr 09/29/22 13:00 09/29/22 13:00 Ns IV 09/29/22 14:00 999 mls/hr .Q1H1M SHARIF Administration Morphine Sulfate 4 mg 09/29/22 12:46 09/29/22 13:00 Morphine Sulfate 4 Mg/Ml Cartridge IVPUSH 09/29/22 12:47 4 mg ONCE ONE Administration Protocol Medical Decision Making Medical Decision Making [facility] Narrative: Patient is a 57 year old assigned male at with a history of alcohol abuse, TBI, and interstitial lung disease presenting to the emergency department today with chest pain. Patient's physical exam was unremarkable. Patient's blood work was unremarkable. Patient's EKG was unremarkable. Patient's chest x-ray showed no acute process. I explained my physical exam findings as well as all test results to the patient. I answered all questions asked by the patient. Patient's clinical presentation is most consistent with chest wall pain. I stressed the importance of the patient taking his medication as prescribed. I stressed the importance of the patient following up with his primary care provider. I stressed the importance of the patient returning to the emergency department immediately if his symptoms were to worsen or if he were to develop any dizziness, shortness of breath, difficulty breathing, chest pain, blurry vision, loss of vision, nausea, vomiting, abdominal pain, fever, chills, back pain, or any other complaints. Patient verbalized agreement and understanding with this treatment plan and discharge. Differential Diagnosis Differential Diagnoses: The differential diagnosis associated with the presentation includes chest wall pain, chest pain Lab Data [facility] Lab Attestation statement: I reviewed the patient's lab results. 09/29/22 12:51 09/29/22 13:25 Labs: Lab Results 09/29/22 09/29/22 09/29/22 Range/Units 12:51 12:51 12:51 WBC 7.9 (4.8-10.8) X10*3/uL RBC 4.81 (4.60-5.80) X10*6/uL Hgb 14.6 (14.0-18.0) g/dl Hct 42.0 (42.0-52.0) % MCV 87.3 (80.0-98.0) fL MCH 30.4 (27.0-33.0) pg MCHC 34.8 (31.0-36.0) g/dl RDW 13.1 (11.0-16.0) % Plt Count 142 L (160-400) X10*3/uL MPV 10.1 (9.4-12.4) fL Immature Gran % (Auto) 0.4 (0.0-0.4) % Neut % (Auto) 64.6 (45-73) % Lymph % (Auto) 25.6 (20-40) % [place] % (Auto) 6.8 (2-11) % Eos % (Auto) 2.0 (0-4) % Baso % (Auto) 0.6 (0-2) % Lymph # (Auto) 2.0 (1.2-4.9) X10*3/uL [place] # (Auto) 0.5 (0.1-1.2) X10*3/uL Eos # (Auto) 0.2 (0.0-0.4) X10*3/uL Baso # (Auto) 0.1 (0.0-0.2) X10*3/uL Abs Immat Gran (auto) 0.03 (0.00-0.03) X10*3/uL Absolute Neuts (auto) 5.1 (2.0-8.3) x10*3/uL Absolute Nucleated RBC 0.000 (0.0-0.012) X10*3/uL Nucleated RBC % (auto) 0.0 (0.0-0.2) /100WBC Sodium (135-145) mmol/L Potassium (3.3-5.1) mmol/L Chloride (96-108) mmol/L Carbon Dioxide (22-29) mmol/L Anion Gap (12-20) BUN (9-16) mg/dL Creatinine (0.5-1.4) mg/dL Estim Creat Clear Calc Estimated GFR Random Glucose (60-115) mg/dL Calcium (8.4-10.2) mg/dL Total Bilirubin (0.0-1.0) mg/dL AST (5-37) U/L ALT (0-40) U/L Alkaline Phosphatase (39-117) U/L Troponin I High Sens < 3.5 (<3.5-35.0) ng/L Total Protein (6.5-8.0) g/dL Albumin (3.5-5.0) g/dL Influenza Type A (PCR) NEGATIVE (Negative) Influenza Type B (PCR) NEGATIVE (Negative) RSV RNA Qual (PCR) NEGATIVE (Negative) SARS-CoV-2 RNA (RT-PCR) NEGATIVE (Negative) 09/29/22 Range/Units 13:25 WBC (4.8-10.8) X10*3/uL RBC (4.60-5.80) X10*6/uL Hgb (14.0-18.0) g/dl Hct (42.0-52.0) % MCV (80.0-98.0) fL MCH (27.0-33.0) pg MCHC (31.0-36.0) g/dl RDW (11.0-16.0) % Plt Count (160-400) X10*3/uL MPV (9.4-12.4) fL Immature Gran % (Auto) (0.0-0.4) % Neut % (Auto) (45-73) % Lymph % (Auto) (20-40) % [place]leigh % (Auto) (2-11) % Eos % (Auto) (0-4) % Baso % (Auto) (0-2) % Lymph # (Auto) (1.2-4.9) X10*3/uL [place] # (Auto) (0.1-1.2) X10*3/uL Eos # (Auto) (0.0-0.4) X10*3/uL Baso # (Auto) (0.0-0.2) X10*3/uL Abs Immat Gran (auto) (0.00-0.03) X10*3/uL Absolute Neuts (auto) (2.0-8.3) x10*3/uL Absolute Nucleated RBC (0.0-0.012) X10*3/uL Nucleated RBC % (auto) (0.0-0.2) /100WBC Sodium 137 (135-145) mmol/L Potassium 4.0 (3.3-5.1) mmol/L Chloride 108 (96-108) mmol/L Carbon Dioxide 20 L (22-29) mmol/L Anion Gap 13 (12-20) BUN 13 (9-16) mg/dL Creatinine 0.92 (0.5-1.4) mg/dL Estim Creat Clear Calc 100.1 Estimated GFR > 60 Random Glucose 107 (60-115) mg/dL Calcium 9.1 (8.4-10.2) mg/dL Total Bilirubin 0.8 (0.0-1.0) mg/dL AST 24 (5-37) U/L ALT 27 (0-40) U/L Alkaline Phosphatase 88 (39-117) U/L Troponin I High Sens (<3.5-35.0) ng/L Total Protein 6.6 (6.5-8.0) g/dL Albumin 3.7 (3.5-5.0) g/dL Influenza Type A (PCR) (Negative) Influenza Type B (PCR) (Negative) RSV RNA Qual (PCR) (Negative) SARS-CoV-2 RNA (RT-PCR) (Negative) Independent Interpretation I performed an independent interpretation of an: EKG Interpretation: Vent. Rate: 106 BPM ? ? Atrial Rate: 106 BPM P-R Int: 166 ms? QRS Dur: 088 ms QT Int: 326 ms ? ? ? P-R-T Axes: 040 025 025 degrees QTc Int: 433 ms ? Sinus tachycardia Otherwise normal ECG When compared with ECG of 07-MAY-2022 19:43, Nonspecific T wave abnormality has replaced inverted T waves in Inferior leads DD/ 1238 Radiology Impression Radiologist Impression: My interpretation is in agreement with the radiologist's impression of this imaging study. EXAMINATION: XR CHEST CLINICAL INFORMATION: Chest pain COMPARISON: 03/21/2022 TECHNIQUE: 2 views of the chest were obtained. FINDINGS: Cardiac leads overlie the chest. The lungs are well expanded. There is no focal consolidation, edema, or effusion. No pneumothorax. The cardiomediastinal silhouette is within normal limits. No acute osseous abnormality. XR/XR chest 2V IMPRESSION: Clear lungs. Dictated By: Daniel Larsen MD Signed By: Electronically signed by Daniel Larsen MD 09/29/22 [id number] Independent Historian Clinical information obtained from an independent historian. History obtained from or confirmed by: EMS Discharge Plan Discharge Clinical Impression: Chest pain Patient Disposition: Home, Self-Care Instructions: Chest Pain (ED) Additional Instructions: Follow up with your primary care provider. Return to the emergency department immediately if your symptoms worsen or if you develop any dizziness, shortness of breath, difficulty breathing, chest pain, blurry vision, loss of vision, nausea, vomiting, abdominal pain, fever, chills, back pain, or any other complaints. Prescriptions: No Action furosemide 40 mg tablet 1 tab PO DAILY clonidine HCl 0.1 mg tablet 1 tab PO BID spironolactone 25 mg tablet 1 tab PO DAILY tamsulosin 0.4 mg capsule 2 cap PO DAILY omeprazole 20 mg capsule,delayed release(DR/EC) 40 mg PO DAILY paroxetine HCl 40 mg tablet 1 tab PO DAILY bupropion HCl 300 mg tablet extended release 24 hr 1 tab PO DAILY atorvastatin 40 mg tablet 1 tab PO BEDTIME finasteride 5 mg tablet 1 tab PO DAILY albuterol sulfate [ProAir HFA] 90 mcg/actuation HFA aerosol inhaler 1 inh inhalation QID PRN (Reason: shortness of breath or wheezing) Qty: 8.5 0RF bupropion HCl 150 mg tablet sustained-release 12 hr 1 tab PO DAILY famotidine 20 mg tablet 1 tab PO BID potassium chloride 10 mEq Tablet Extended Release 10 meq PO DAILY aripiprazole 5 mg Tablet 5 mg PO DAILY ondansetron 4 mg tablet,disintegrating 4 mg PO Q6H PRN (Reason: nausea and vomiting) Qty: 10 0RF acetaminophen [Tylenol Extra Strength] 500 mg tablet 1,000 mg PO QID PRN (Reason: fever or pain) Qty: 14 0RF hydroxyzine HCl 25 mg tablet 25 mg PO Q4H PRN (Reason: Anxiety) folic acid 1 mg tablet 1 mg PO DAILY (DME) FreeStyle Lite Strips Strip See Rx Instructions Not Applicable TID Qty: 10 Rx Instructions: As directed docusate sodium 100 mg capsule 100 mg PO BID PRN (Reason: constipation) (DME) lancets [Ultra-Care Lancets] 30 gauge misc See Rx Instructions .ROUTE TID Qty: 100 Rx Instructions: As directed (DME) BD AutoShield Duo Pen Needle 30 gauge x 3/16 needle See Rx Instructions .ROUTE .MEDSUPPLY Qty: 100 Rx Instructions: As directed Referrals: Laura Cruz MD [Primary Care Provider] - Print Language: Mongolian
[2022-09-29 12:57] LABS: MANUAL DIFF FLAG NO
[2022-09-29] MEDS: Morphine Sulfate 4 MG/ML CARTRIDGE IVPUSH (13:00)
[2022-09-29] MEDS: Acetaminophen 325 MG TABLET 650 MG PO (13:00)
[2022-09-29] MEDS: 0.9 % Sodium Chloride 1,000 ML 999 ML IV (13:00)
[2022-09-29 13:09] LABS: Basophils Absolute Auto 0.1 X10*3/uL (0.0-0.2); Basophils Percent Auto 0.6 % (0-2); Eosinophils Absolute Auto 0.2 X10*3/uL (0.0-0.4); Hemoglobin 14.6 g/dl (14.0-18.0); Imm Gran Abs Auto 0.03 X10*3/uL (0.00-0.03); Imm Gran Pct Auto 0.4 % (0.0-0.4); Lymphocytes Percent Auto 25.6 % (20-40); Mean Corpuscular HGB Conc 34.8 g/dl (31.0-36.0); Mean Corpuscular Hemoglobin 30.4 pg (27.0-33.0); Mean Corpuscular Volume 87.3 fL (80.0-98.0); Mean Platelet Volume 10.1 fL (9.4-12.4); Monocytes Absolute Auto 0.5 X10*3/uL (0.1-1.2); Monocytes Percent Auto 6.8 % (2-11); Neutrophils Absolute Auto 5.1 x10*3/uL (2.0-8.3); Neutrophils Percent Auto 64.6 % (45-73); Platelet Count 142 X10*3/uL (160-400); Red Blood Count 4.81 X10*6/uL (4.60-5.80); Red Cell Distribution Width 13.1 % (11.0-16.0); White Blood Count 7.9 X10*3/uL (4.8-10.8)
[2022-09-29 13:22] LABS: Troponin-I High Sensitivity < 3.5 ng/L (<3.5-35.0)
[2022-09-29 13:33] VITALS: BP 137/103; PULSE 94; RESP 15; O2SAT 95
--- OUTSIDE RECORDS SUMMARY | 2022-09-29 13:34 | XMS_ITS | Continuity of Care Document ---
:1965 Author Organization [facility] Address [address] [place] [id number]- Care Team Providers Name Role Phone Rock-Juanis Cook MD Primary Care Physician [phone] [place] [facility] [place] 05/27/20 - 07/06/[address] [address]- [facility] Attending Physician: Saúl Godwin MD Admitting Physician: Saúl Godwin MD Referring Physician: Saúl Godwin MD Allergies, Adverse Reactions, Alerts Substance Reaction Severity Status NKA Active Immunizations Given and Recorded Vaccine Date Status Refusal Reason influenza virus vaccine, inactivated 09/18/18 Given influenza virus vaccine, inactivated 10/02/11 Given FluLaval (oldterm) 06/16/10 Given pneumococcal 23-valent vaccine 03/28/09 Given Not Given Vaccine Date Status Refusal Reason influenza virus vaccine, inactivated1 06/13/19 Not Given Patient Refuses 1Result Comment: Patient states I already got it Medications albuterol CFC free 90 mcg/inh inhalation aerosol 2, puffs, Inhalation, 4 times a day, PRN, # 18 Gm, Refills 0, Tot. Refills 0, Maintenance, 01/04/20 10:28:00 EDT, Aerosol, Route to Pharmacy Electronically, [id number], [facility], 170, cm, 01/04/20 4:32:00 EDT,... Start Date: 01/04/20 Status: OrderedamLODIPine 5 mg oral tablet 5 mg, 1, tablet, By Mouth, Daily, # 30 tablet, Refills 0, Tot. Refills 0, Maintenance, 10/15/19 10:20:00 EST, Print Requisition, Dry Weight Start Date: 10/15/19 Status: OrderedAtivan 0.5 mg oral tablet 1 tablet = 0.5 mg, By Mouth, 3 times a day, PRN Anxiety, # 9 tablet, 0 Refills, Maintenance, 10/15/19 10:21:00 EST, Tablet Start Date: 10/15/19 Stop Date: 10/18/19 Status: Orderedfolic acid 1 mg oral tablet 1 mg, 1, tablet, By Mouth, Daily, # 30 tablet, Refills 0, Tot. Refills 0, Maintenance, 10/15/19 10:20:00 EST, Print Requisition, Dry Weight Start Date: 10/15/19 Status: OrderedIncruse Ellipta 62.5 mcg/inh inhalation powder 1 inhalation = 62.5 mcg, Inhalation, Every 24 hours, doses should be taken at least 24 hours apart, # 1 each, 0 Refills, Maintenance, 01/04/20 10:50:00 EDT, Powder, [facility], 170, cm, 01/04/20 4:32:00 EDT, Height, 100, kg, 01/03/20 9:3... Start Date: 01/04/20 Stop Date: 02/03/20 Status: Orderedmultivitamin Multiple Vitamins oral tablet See Instructions, By Mouth Daily, # 30 tablet, 0 Refills, Maintenance, 10/15/19 10:20:00 EST, Tablet Start Date: 10/15/19 Status: Orderedondansetron 4 mg oral tablet, disintegrating = 4 mg, By Mouth, 3 times a day, PRN Nausea & Vomiting, # 30 tablet, 0 Refills, Maintenance, 07/26/19 8:40:25 EST, Tablet Start Date: 07/26/19 Status: Orderedpantoprazole 40 mg oral delayed release tablet 1 tablet = 40 mg, By Mouth, 2 times a day, # 60 tablet, 1 Refills, Maintenance, 10/15/19 10:21:00 EST Start Date: 10/15/19 Stop Date: 12/14/19 Status: OrderedPARoxetine 40 mg oral tablet 40 mg, 1, tablet, By Mouth, Daily in AM, # 30 tablet, Refills 0, Tot. Refills 0, Maintenance, 10/15/19 10:21:00 EST, Print Requisition Start Date: 10/15/19 Stop Date: 11/14/19 Status: OrderedProscar 5 mg oral tablet 1 tablet = 5 mg, By Mouth, Daily, # 30 tablet, 0 Refills, Maintenance, 10/15/19 10:20:00 EST, Tablet Start Date: 10/15/19 Status: Orderedpyridoxine 50 mg oral tablet 50 mg, 1, tablet, By Mouth, Daily, # 30 tablet, Refills 0, Tot. Refills 0, Maintenance, 10/15/19 10:21:00 EST, Print Requisition Start Date: 10/15/19 Status: Orderedtamsulosin 0.4 mg oral capsule 0.8 mg, 2, capsule, By Mouth, Daily, TAKE 2 CAPSULES BY MOUTH DAILY., # 60 capsule, Refills 0, Tot. Refills 0, Maintenance, 10/15/19 10:21:00 EST, Print Requisition Start Date: 10/15/19 Stop Date: 11/14/19 Status: Orderedthiamine 100 mg oral tablet 100 mg, 1, tablet, By Mouth, Daily, # 30 tablet, Refills 0, Tot. Refills 0, Maintenance, 10/15/19 10:21:00 EST, Print Requisition, Dry Weight Start Date: 10/15/19 Status: OrderedtraZODone 100 mg oral tablet 100 mg, 1, tablet, By Mouth, Daily at bedtime, Refills 0, Maintenance, 01/03/20 9:15:00 EDT Start Date: 01/03/20 Status: OrderedTylenol 325 mg oral tablet 650 mg, 2, tablet, By Mouth, 3 times a day, PRN, # 30 tablet, Refills 0, Tot. Refills 0, Maintenance, Pain , Moderate, 07/26/19 8:38:12 EST, Print Requisition Start Date: 07/26/19 Status: Ordered Problem List Condition Effective Dates Status Health Status Informant Alcoholic hepatitis(Confirmed) Active Anxiety(Confirmed) Active Benign prostatic Active hyperplasia(Confirmed) CHRONIC ISCHEMIC HEART DISEASE, 2007 Active UNSPECIFIED(Confirmed) Cirrhosis(Confirmed) Active Cocaine use(Confirmed) Active Depression(Confirmed) Active Mild diastolic dysfunction(Confirmed) Active Marijuana use(Confirmed) Active Use of opiates for therapeutic Active purposes(Confirmed) Hyperlipidemia(Confirmed) Active Hypertension(Confirmed) Active Bilateral knee pain(Confirmed) Active Nicotine use disorder(Confirmed) Active 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
--- OUTSIDE RECORDS SUMMARY | 2022-09-29 13:34 | XMS_ITS | Continuity of Care Document ---
:1965 Author Organization [facility] Address [address] [place] [address]- Care Team Providers Name Role Phone [place]-Juanis Cook MD Primary Care Physician [phone] Encounter [facility] [place] Date(s): 10/10/19 - 10/13/[address] [address]- [facility] Encounter Diagnosis Cocaine use (Final) - 10/10/19 Discharge Disposition: A-D/C Home Attending Physician: Shila Monk MD Admitting Physician: Erika Short DO Referring Physician: Not on Staff, Referring MD Allergies, Adverse Reactions, Alerts Substance Reaction [...] Patient states I already got it Medications aluminum hydroxide/magnesium hydroxide/simethicone 200 mg-200 mg-20 mg/5 mL oral suspension 10 mL, By Mouth, 4 times a day, PRN Dyspepsia, # 150 mL, 0 Refills, Maintenance, 07/26/19 8:38:41 EST, Suspension Start Date: 07/26/19 Status: OrderedamLODIPine 5 mg oral tablet 5 mg, 1, tablet, By Mouth, Daily, # 30 tablet, Refills 0, Tot. Refills 0, Maintenance, 10/13/19 9:44:00 EST, Route to Pharmacy Electronically, [facility], 175.26, cm, 10/13/19 8:25:00 EST, Height, 102.3, kg, 10/12/19 14:15:00 EST, Dry We... Start Date: 10/13/19 Status: OrderedArtificial Tears 1.4% 1 applicator, Eyes, Both, Every 4 hours, PRN Other, Dryness., # 1 Gm, 0 Refills, Maintenance, 07/26/19 8:40:11 EST, Ophth Solution Start Date: 07/26/19 Status: OrderedAtivan 0.5 mg oral tablet 1 tablet = 0.5 mg, By Mouth, 3 times a day, PRN Anxiety, # 30 tablet, 0 Refills, Maintenance, 07/26/19 8:37:41 EST, Tablet Start Date: 07/26/19 Status: Orderedfolic acid 1 mg oral tablet 1 mg, 1, tablet, By Mouth, Daily, # 30 tablet, Refills 0, Tot. Refills 0, Maintenance, 10/13/19 9:44:00 EST, Route to Pharmacy Electronically, [facility], 175.26, cm, 10/13/19 8:25:00 EST, Height, 102.3, kg, 10/12/19 14:15:00 EST, Dry We... Start Date: 10/13/19 Status: Orderedmultivitamin Multiple Vitamins oral tablet See Instructions, By Mouth Daily, # 30 tablet, 0 Refills, Maintenance, 07/26/19 8:39:39 EST, Tablet Start Date: 07/26/19 Status: Orderedondansetron 4 mg oral tablet, disintegrating = 4 mg, By Mouth, 3 times a day, PRN Nausea & Vomiting, # 30 tablet, 0 Refills, Maintenance, 07/26/19 8:40:25 EST, Tablet Start Date: 07/26/19 Status: Orderedpantoprazole 40 mg oral delayed release tablet 1 tablet = 40 mg, By Mouth, 2 times a day, # 60 tablet, 1 Refills, Maintenance, 07/26/19 8:41:20 EST Start Date: 07/26/19 Stop Date: 09/24/19 Status: OrderedPARoxetine 40 mg oral tablet 40 mg, 1, tablet, By Mouth, Daily in AM, # 30 tablet, Refills 0, Tot. Refills 0, Maintenance, 07/26/19 8:41:29 EST, Print Requisition Start Date: 07/26/19 Stop Date: 08/25/19 Status: OrderedProscar 5 mg oral tablet 1 tablet = 5 mg, By Mouth, Daily, # 30 tablet, 0 Refills, Maintenance, 07/26/19 8:39:09 EST, Tablet Start Date: 07/26/19 Status: Orderedpyridoxine 50 mg oral tablet 50 mg, 1, tablet, By Mouth, Daily, # 30 tablet, Refills 0, Tot. Refills 0, Maintenance, 07/26/19 8:41:49 EST, Print Requisition Start Date: 07/26/19 Status: Orderedtamsulosin 0.4 mg oral capsule 0.8 mg, 2, capsule, By Mouth, Daily, TAKE 2 CAPSULES BY MOUTH DAILY., # 60 capsule, Refills 0, Tot. Refills 0, Maintenance, 07/26/19 8:43:13 EST, Print Requisition Start Date: 07/26/19 Stop Date: 08/25/19 Status: Orderedthiamine 100 mg oral tablet 100 mg, 1, tablet, By Mouth, Daily, # 30 tablet, Refills 0, Tot. Refills 0, Maintenance, 10/13/19 9:44:00 EST, Route to Pharmacy Electronically, [facility], 175.26, cm, 10/13/19 8:25:00 EST, Height, 102.3, kg, 10/12/19 14:15:00 EST, Dry... Start Date: 10/13/19 Status: OrderedtraZODone 50 mg oral tablet 50 mg, 1, tablet, By Mouth, Daily at bedtime, # 30 tablet, Refills 0, Tot. Refills 0, Maintenance, 07/26/19 8:43:40 EST, Print Requisition Start Date: 07/26/19 Status: OrderedTylenol 325 mg oral tablet 650 [...] Prinzmetal angina(Confirmed) Active SUBDURAL HEMORRHAGE(Confirmed) 03/10/09 Active Results Radiology Reports Exam Date Time Procedure Performing Provider Status 10/10/19 5:44 PM Chest 2 Views Frontal and Lat Albert Es; Auth (Verified) Notes:(Chest 2 Views Frontal and Lat) Reason For Exam: Shortness of Breath, Fever;Other:RESULT: Chest 2 Views Frontal and Lat Chest 2 Views Frontal and Lat Reason: Shortness of Breath, Fever; Clinical Question(s): Pneumonia; Hx of Present Illness: comes from [facility] parking lot, pt found intoxicated, COMPARISON: 2019 FINDINGS: LINES AND TUBES: None. LUNGS AND PLEURA: Low lung volumes with mild basilar atelectasis. Lungs are otherwise clear with no consolidation. No pleural effusion. No pneumothorax. HEART, MEDIASTINUM AND ANIA: Heart is normal in size. Normal mediastinal and hilar contour. BONES AND SOFT TISSUES: No acute abnormality. IMPRESSION: No acute abnormality. WSN: [id number] Dictated By: Ezekiel Post MD Dictated Date/Time: 10/10/19 5:48 pm Reviewed By: Ezekiel Post MD Signed By: Ezekiel Post MD Signed Date/Time: 10/10/19 5:48 pm Transcribed By: KELLY Transcribed Date/Time: 10/10/19 5:46 pm Vital Signs Most recent to oldest 1 2 3 [Reference Range]: Height 175.26 cm 175.26 cm 175.26 cm (10/13/19 8:25 AM) (10/13/19 5:21 AM) (10/12/19 11:04 PM) Weight 105.5 kg 102.3 kg (10/13/19 5:21 AM) (10/10/19 9:01 PM) Oxygen Saturation [94-100 %] 96 % 95 % 95 % (10/13/19 8:25 AM) (10/13/19 5:21 AM) (10/12/19 11:04 PM) Pulse Rate [55-90 bpm] 101 bpm 99 bpm 90 bpm *H* *H* (10/12/19 11:04 PM ) (10/13/19 8:25 AM) (10/13/19 5:21 AM) Body Mass Index [18.5-24.99] 34.35 33.31 *>HHI* *>HHI* (10/13/19 5:21 AM) (10/10/19 9:01 PM) Blood Pressure [90-138/55-84 166/105 mm Hg 166/105 mm Hg 156 /93 mm Hg mm Hg] *H* *H* *H* (10/13/19 8:38 AM) (10/13/19 8:25 AM) (10/13/19 5:21 A M) Respiratory Rate [16-30 19 br/min 18 br/min 18 br/mi n br/min] (10/13/19 8:25 AM) (10/13/19 6:45 AM) (10/13/19 5:21 A M) Temperature [96.8-100.4 DegF] 99 DegF 98.7 DegF 97 .3 DegF (10/13/19 8:25 AM) (10/13/19:21 AM) (10/12/19 11:04 PM) Mode of Delivery (Oxygen) Room air Room air Room a ir (10/13/19 8:25 AM) (10/13/19 5:21 AM) (10/12/19 11:04 PM) Blood pressure sites Arm, left Arm, left Arm, left (10/13/19 8:25 AM) (10/13/19:21 AM) (10/12/19 11:04 PM) Temperature Route Oral Oral Oral (10/13/19 8:25 AM) (10/13/19:21 AM) (10/12/19 11:04 PM) Dry Weight 102.3 kg (10/12/19 3:45 PM) Weight Obtained Via Bed scale Bed scale (10/13/19 5:21 AM) (10/10/19 9:01 PM) Sensory deficits Cognitive deficit (10/10/19 9:01 PM) Mobility assistance Partial assistance (10/10/19 9:01 PM) Social History Social History Type Response Smoking Status Current every day smoker; Ty pe: Cigarettes; Number of years: 40; entered on: 05/09/18 Sex Male
--- OUTSIDE RECORDS SUMMARY | 2022-09-29 13:34 | XMS_ITS | Continuity of Care Document ---
:1965 Author Organization [facility] Address [address] [place] [address]- Care Team Providers Name Role Phone [place]-Juanis Cook MD Primary Care Physician [phone] [place] [facility] [place] 10/14/19 - 10/17/[address] [address]- [facility] Encounter Diagnosis Alcohol intoxication (Final) - 10/14/19 Abrasion (Final) - 10/14/19 Acute alcohol intoxication (Discharge Diagnosis) - 10/14/19 Discharge Disposition: A-D/C Home Attending Physician: Willis Thakkar MD Admitting Physician: Janna Velasquez MD Referring Physician: Not on Staff, Referring MD [...] Requisition, Dry Weight Start Date: 10/15/19 Status: OrderedArtificial Tears 1.4% 1 applicator, Eyes, [...] Requisition, Dry Weight Start Date: 10/15/19 Status: Orderedmultivitamin Multiple Vitamins oral tablet See [...] Dry Weight Start Date: 10/15/19 Status: OrderedtraZODone 50 mg oral tablet 50 mg, 1, tablet, By Mouth, Daily at bedtime, # 30 tablet, Refills 0, Tot. Refills 0, Maintenance, 10/15/19 10:21:00 EST, Print Requisition Start Date: 10/15/19 Status: OrderedTylenol 325 mg oral tablet 650 [...] Prinzmetal angina(Confirmed) Active SUBDURAL HEMORRHAGE(Confirmed) 03/10/09 Active Diagnosis Diagnosis Type Effective Dates Health Clinical Infor mant Status Service Acute alcohol Discharge 10/14/19 Non-Specified intoxication Diagnosis Vital Signs Most recent to oldest 1 2 3 [Reference Range]: Height 175.26 cm 175.26 cm 175.26 cm (10/17/19 7:59 AM) (10/16/19 11:46 PM) (10/16/19 4: 06 PM) Weight 104.3 kg (10/15/19 9:01 AM) Oxygen Saturation [94-100 99 % 97 % 94 % %] (10/17/19 7:59 AM) (10/16/19 11:46 PM) (10/16/19 7: 00 PM) Pulse Rate [55-90 bpm] 87 bpm 92 bpm 87 bpm (10/17/19 7:59 AM) *H* (10/16/19 7:00 PM) (10/16/19 11:46 PM) Body Mass Index 33.96 [18.5-24.99] *>HHI* (10/15/19 9:01 AM) Blood Pressure 132/75 mm Hg 132/75 mm Hg 134/82 mm Hg [90-138/55-84 mm Hg] (10/17/19 8:59 AM) (10/17/19 7:59 AM) ( 0 11:46 PM) Respiratory Rate [16-30 19 br/min 17 br/min 20 br/mi n br/min] (10/17/19 11:53 AM) (10/17/19 9:06 AM) (10/17/19 7: 59 AM) Temperature [96.8-100.4 98.0 DegF 98 DegF 98.9 Deg F DegF] (10/17/19 7:59 AM) (10/16/19 11:46 PM) (10/16/19 7: 00 PM) Mode of Delivery (Oxygen) Room air Room air Room a ir (10/17/19 7:59 AM) (10/16/19 11:46 PM) (10/16/19 7: 00 PM) Blood pressure sites Arm, left Arm, right Arm, right (10/17/19 7:59 AM) (10/16/19 11:46 PM) (10/16/19 7: 00 PM) Temperature Route Oral Oral Temporal (10/17/19 7:59 AM) (10/16/19 11:46 PM) (10/16/19 7: 00 PM) Dry Weight 104.3 kg (10/15/19 9:01 AM) Sensory deficits None (10/15/19 9:01 AM) Mobility assistance Partial assistance (10/15/19 9:01 AM) Social History Social History Type Response Smoking Status Current every day smoker; Ty pe: Cigarettes; Number of years: 40; entered on: 05/09/18 Sex Male
--- OUTSIDE RECORDS SUMMARY | 2022-09-29 13:34 | XMS_ITS | Continuity of Care Document ---
:1965 Author Organization [facility] Address [address] [place] [address]- Care Team Providers Name Role Phone Real Arambula DO Primary Care Physician Encounter [facility] Date(s): 06/30/22 - 07/02/[address] [address] Discharge Disposition: A-D/C Home Attending Physician: Felipa Gresham MD Admitting Physician: Alexandre Deras MD Referring Physician: Not on Staff, Referring MD Allergies, Adverse Reactions, Alerts No Known Allergies Immunizations Given and Recorded Vaccine Date Status Refusal Reason influenza virus vaccine, inactivated 07/02/22 Given influenza virus vaccine, inactivated 09/18/18 Given influenza virus vaccine, inactivated 10/02/11 Given SARS-CoV-2 mRNA (yxhyawv-mslb-lmyok) vax 03/31/22 Recorde d SARS-CoV-2 mRNA (uharyly-lofz-htlie) vax 12/24/21 Recorde d SARS-CoV-2 (COVID-19) mRNA BNT-162b2 vac 11/04/20 Recorde d SARS-CoV-2 (COVID-19) mRNA BNT-162b2 vac 10/14/20 Recorde d FluLaval (oldterm) 06/16/10 Given pneumococcal 23-valent vaccine [...] 10:28:00 EDT, Aerosol, Route to Pharmacy Electronically, [id number], [facility], 170, cm, 01/04/20 4:32:00 EDT,... Start Date: 01/04/20 Status: OrderedamLODIPine 5 mg oral tablet 5 mg, 1, tablet, By Mouth, Daily, # 30 tablet, Refills 0, Tot. Refills 0, Maintenance, 10/15/19 10:20:00 EST, Print Requisition, Dry Weight Start Date: 10/15/19 Status: OrderedamLODIPine 5 mg oral tablet 5 mg, Tablet, By Mouth, 07/02/22 9:00:00 EDT Start Date: 07/02/22 Stop Date: 07/02/22 Status: Completedatorvastatin 40 mg oral tablet 1 tablet = 40 mg, By Mouth, Daily at bedtime, 0 Refills, Maintenance, 07/24/20 9:12:00 EST, Tablet, Partial fill upon patient request Start Date: 07/24/20 Status: OrderedbuPROPion 150 mg/24 hours (XL) oral tablet, extended release 1 tablet = 150 mg, By Mouth, Every 24 hours, 0 Refills, Maintenance, 07/02/22 12:26:00 EDT, XL Tablet, Partial fill upon patient request if the prescription is for a schedule II opioid drug. Start Date: 07/02/22 Status: OrderedbuPROPion 300 mg/24 hours (XL) oral tablet, extended release 1 tablet = 300 mg, By Mouth, Daily, 0 Refills, Maintenance, 07/24/20 9:12:00 EST, XL Tablet, Partialfill upon patient request Start Date: 07/24/20 Status: Orderedfolic acid 1 mg oral tablet 1 mg, 1, tablet, By Mouth, Daily, # 30 tablet, Refills 0, Tot. Refills 0, Maintenance, 07/02/22 12:21:00 EDT, Route to Pharmacy Electronically, [facility], 178, cm, 11/24/21 14:30:00 EDT,Height, 115.9, kg, 11/24/21 14:30:00 EDT, Dry Weight Start Date: 07/02/22 Stop Date: 08/01/22 Status: OrderedhydrOXYzine pamoate 25 mg oral capsule 1 capsule = 25 mg, By Mouth, Every 6 hours, PRN Anxiety, 0 Refills, Maintenance, 07/24/20 9:13:00 EST, Capsule, Partial fill upon patient request Start Date: 07/24/20 Status: OrderedIncruse Ellipta 62.5 mcg/inh inhalation powder 1 inhalation = 62.5 mcg, Inhalation, Every 24 hours, doses should be taken at least 24 hours apart, # 1 each, 0 Refills, Maintenance, 01/04/20 10:50:00 EDT, Powder, [facility], 170, cm, 01/04/20 4:32:00 EDT, Height, 100, kg, 01/03/20 9:3... Start Date: 01/04/20 Stop Date: 02/03/20 Status: OrderedLasix 40 mg oral tablet 40 mg, 1, tablet, By Mouth, Daily, Refills 0, Maintenance, 07/24/20 9:13:00 EST, Partial fill upon patient request Start Date: 07/24/20 Status: OrderedMorPHINE Inj 2 mg, Injection, IV Push Slowly, Once, PRN for Pain , Severe, EARLE, 07/02/22 5:10:00 EDT Start Date: 07/02/22 Stop Date: 07/02/22 Status: Completedomeprazole 40 mg oral enteric coated capsule 1 capsule = 40 mg, By Mouth, Daily, # 30 capsule, 0 Refills, Maintenance, 07/02/22 12:21:00 EDT, EC Capsule, [facility], Partial fill upon patient request if the prescription is for a schedule II opioid drug., 178, cm, 11/24/21 14:30:00... Start Date: 07/02/22 Stop Date: 08/01/22 Status: OrderedPARoxetine 40 mg oral tablet 40 [...] tablet, Refills 0, Tot. Refills 0, Maintenance, 07/02/22 12:21:00 EDT, Route to Pharmacy Electronically, [facility], 178, cm, 11/24/21 14:30:00 EDT, Height, 115.9, kg, 11/24/21 14:30:00 EDT, Dry We... Start Date: 07/02/22 Stop Date: 08/01/22 Status: Orderedspironolactone 25 mg oral tablet 25 mg, 1, tablet, By Mouth, Daily, Refills 0, Maintenance, 07/24/20 9:14:00 EST, Partial fill upon patient request Start Date: 07/24/20 Status: Orderedtamsulosin 0.4 mg oral capsule 0.4 mg, 1, capsule, By Mouth, Daily, # 30 capsule, Refills 0, Tot. Refills 0, Maintenance, 10/15/19 10:21:00 EST, Print Requisition Start Date: 10/15/19 Stop Date: 11/14/19 Status: Orderedthiamine 100 mg oral tablet 100 mg, 1, tablet, By Mouth, Daily, # 30 tablet, Refills 0, Tot. Refills 0, Maintenance, 07/02/22 12:20:00 EDT, Route to Pharmacy Electronically, [facility], 178, cm, 11/24/21 14:30:00 EDT, Height, 115.9, kg, 11/24/21 14:30:00 EDT, Dry W... Start Date: 07/02/22 Stop Date: 08/01/22 Status: Ordered Problem List Condition Confirmation Course Effective Dates Status Health I nformant Status Alcoholic hepatitis Confirmed Active Anxiety Confirmed Active Benign prostatic Confirmed Active hyperplasia CHRONIC ISCHEMIC Confirmed 2007 Active HEART DISEASE, UNSPECIFIED Cirrhosis Confirmed Active Cocaine use Confirmed Active Depression Confirmed Active Mild diastolic Confirmed Active dysfunction Marijuana use Confirmed Active Use of opiates for Confirmed Active therapeutic purposes Hyperlipidemia Confirmed Active Hypertension Confirmed Active Bilateral knee pain Confirmed Active Nicotine use disorder Confirmed Active Obese class II Confirmed Active Portal hypertensive Confirmed 12/29/17 Active gastropathy Prinzmetal angina Confirmed Active SUBDURAL HEMORRHAGE Confirmed 03/10/09 Active Results Radiology Reports Exam Date Time Procedure Performing Provider Status 06/30/22 4:44 PM Chest 2 Views Frontal and Lat Christopher Lozada; Auth (Verified) Notes:(Chest 2 Views Frontal and Lat) Reason For Exam: COPDRESULT: Chest 2 Views Frontal and Lat Chest 2 Views Frontal and Lat Reason: COPD; Clinical Question(s): Pneumonia COMPARISON: Radiograph of the chest dated 11/24/2021. FINDINGS: LINES AND TUBES: None. LUNGS AND PLEURA: Low lung volumes. No focal consolidation. Normal pulmonary vascularity. No pleural effusion. No pneumothorax. HEART, MEDIASTINUM AND ANIA: Heart is normal in size. Normal mediastinal and hilar contour. BONES AND SOFT TISSUES: No acute abnormality. IMPRESSION: No focal consolidation or pleural effusion. WSN: [id number] Ordering Physician: Jakob Ansari Dictated By: Savanna Acevedo MD Dictated Date/Time: 06/30/22 4:48 pm Reviewed By: Savanna Acevedo MD Signed By: Savanna Acevedo MD Signed Date/Time: 06/30/22 4:48 pm Transcribed By: KELLY Transcribed Date/Time: 06/30/22 4:47 pm Vital Signs Most recent to oldest 1 2 3 [Reference Range]: Oxygen Saturation [94-100 98 % 99 % 93 % %] (07/02/22 10:59 AM) (07/02/22 4:53 AM) *L* (07/01/22 11:31 PM) Pulse Rate [55-90 bpm] 81 bpm 86 bpm 86 bpm (07/02/22 10:59 AM) (07/02/22 4:53 AM) (07/02/22 4:00 AM) Blood Pressure 172/98 mm Hg 172/98 mm Hg 145/85 mm Hg [90-138/55-84 mm Hg] *H* *H* *H* (07/02/22 10:59 AM) (07/02/22 8:46 AM) (07/02/22 5:19 AM) Respiratory Rate [16-30 17 br/min 18 br/min 18 br/mi n br/min] (07/02/22 10:59 AM) (07/02/22 5:46 AM) (07/02/22 4:53 AM) Temperature [96.8-100.4 98.3 DegF 98.2 DegF 98.3 Deg F DegF] (07/02/22 10:59 AM) (07/02/22 4:53 AM) (07/01/22 11:31 PM) Liters per Minute 1 L/min 1 L/min 1 L/min (07/01/22 6:26 AM) (07/01/22 5:21 AM) (07/01/22 4:36 AM) Mode of Delivery (Oxygen) Room air Room air Room a ir (07/02/22 10:59 AM) (07/02/22 4:53 AM) (07/01/22 11:31 PM) Blood pressure sites Arm, left Arm, right Arm, left (07/02/22 10:59 AM) (07/02/22 4:53 AM) (07/01/22 11:31 PM) Temperature Route Oral Oral Oral (07/02/22 10:59 AM) (07/02/22 4:53 AM) (07/01/22 11:31 PM) Social History Social History Type Response Smoking Status Current every day smoker; Ty pe: Cigarettes; Number of years: 40; entered on: 05/09/18 Sex Male Note BHSPowerscribe , CIS S: TRANSCRIBE Savanna Acevedo MD: VERIFY Event Display: Result: Authored Date: [id number] Chest 2 Views Frontal and Lat Reason: COPD; Clinical Question(s): Pneumonia COMPARISON: Radiograph of the chest dated 11/24/2021. FINDINGS: LINES AND TUBES: None. LUNGS AND PLEURA: Low lung volumes. No focal consolidation. Normal pulmonary vascularity. No pleural effusion. No pneumothorax. HEART, MEDIASTINUM AND ANIA: Heart is normal in size. Normal mediastinal and hilar contour. BONES AND SOFT TISSUES: No acute abnormality. IMPRESSION: No focal consolidation or pleural effusion. WSN: [id number] Ordering Physician: Jakob Ansari Dictated By: Savanna Acevedo MD Dictated Date/Time: 06/30/22 4:48 pm Reviewed By: Savanna Acevedo MD Signed By: Savanna Acevedo MD Signed Date/Time: 06/30/22 4:48 pm Transcribed By: KELLY Transcribed Date/Time: 06/30/22 4:47 pm Patient Care team information PersonnelName: Real Arambula DO Address: Address: [address] [place] [address] [address]
--- OUTSIDE RECORDS SUMMARY | 2022-09-29 13:35 | XMS_ITS | Continuity of Care Document ---
:1965 Author Organization [facility] Address [address] [place] [address]- Care Team Providers Name Role Phone Joss-Joey GÓMEZ, Juanis Primary Care Physician [phone] Encounter [facility] [place] Date(s): 02/20/21 - 03/22/[address] [address] Attending Physician: Not on Staff, Attending MD Admitting Physician: Not on Staff, Admitting MD Referring Physician: Not on Staff, Referring MD Allergies, Adverse Reactions, Alerts Substance Reaction Severity Status NKA Active Immunizations Given and Recorded Vaccine Date Status Refusal Reason SARS-CoV-2 (COVID-19) mRNA BNT-162b2 vac 11/04/20 Recorde d SARS-CoV-2 (COVID-19) mRNA BNT-162b2 vac 10/14/20 Recorde d influenza virus vaccine, inactivated 09/18/18 Given influenza [...] 10:28:00 EDT, Aerosol, Route to Pharmacy Electronically, [id number], [facility], 170, cm, 01/04/20 4:32:00 EDT,... Start Date: 01/04/20 Status: OrderedamLODIPine 5 mg oral tablet 5 mg, 1, tablet, By Mouth, Daily, # 30 tablet, Refills 0, Tot. Refills 0, Maintenance, 10/15/19 10:20:00 EST, Print Requisition, Dry Weight Start Date: 10/15/19 Status: OrderedARIPiprazole 5 mg oral tablet 5 mg, 1, tablet, By Mouth, Daily, Refills 0, Maintenance, 07/23/20 9:01:00 EST, Partial fill upon patient request Start Date: 07/23/20 Status: Orderedaspirin 325 mg oral delayed release tablet 325 mg, 1, tablet, By Mouth, 2 times a day, PRN, # 60 tablet, Refills 0, Tot. Refills 0, Maintenance, for fever, 07/24/20 9:35:00 EST, Route to Pharmacy Electronically, [facility], Partial fill upon patient request, 177, cm, 07/24/20 6:3... Start Date: 07/24/20 Stop Date: 08/23/20 Status: Orderedatorvastatin 40 mg oral tablet 1 tablet = 40 mg, By Mouth, Daily at bedtime, 0 Refills, Maintenance, 07/24/20 9:12:00 EST, Tablet, Partial fill upon patient request Start Date: 07/24/20 Status: OrderedbuPROPion 300 mg/24 hours (XL) oral tablet, extended release 1 tablet = 300 mg, By Mouth, Daily, 0 Refills, Maintenance, 07/24/20 9:12:00 EST, XL Tablet, Partialfill upon patient request Start Date: 07/24/20 Status: OrderedcloNIDine 0.1 mg oral tablet 0.1 mg, 1, tablet, By Mouth, 2 times a day, Refills 0, Maintenance, 07/24/20 9:13:00 EST, Partial fill upon patient request Start Date: 07/24/20 Status: OrderedColace Capsule 100 mg, 1, capsule, By Mouth, 2 times a day, Hold for loose stools., Refills 0, Maintenance, 07/24/20 9:13:00 EST, Partial fill upon patient request Start Date: 07/24/20 Status: Orderedfolic acid 1 mg oral tablet 1 mg, 1, tablet, By Mouth, Daily, # 30 tablet, Refills 0, Tot. Refills 0, Maintenance, 10/15/19 10:20:00 EST, Print Requisition, Dry Weight Start Date: 10/15/19 Status: OrderedhydrOXYzine pamoate 25 mg oral capsule [...] 0 Refills, Maintenance, 01/04/20 10:50:00 EDT, Powder, [facility], 170, cm, 01/04/20 4:32:00 EDT, Height, 100, kg, 01/03/20 9:3... Start Date: 01/04/20 Stop Date: 02/03/20 Status: OrderedInsulin Lispro 10-22 units, Subcutaneous Injection, 3 times a day before meals, << Sliding Scale Comments >> 100 - 149 10 units Call if less than 100 150 - 199 13 units 200 - 249 16 units 250 - 299 19 units 300 - 349 22 units Call if greater than 4... Start Date: 02/24/21 Status: Orderedlactulose 10 gm/15 ml oral syrup 30 mL = 20 Gm, By Mouth, 2 times a day, 0 Refills, Maintenance, 07/24/20 9:13:00 EST, Syrup, Partialfill upon patient request Start Date: 07/24/20 Status: OrderedLantus Inj 0.4 mL = 40 units, Subcutaneous Injection, Daily at bedtime, 0 Refills, Maintenance, 02/24/21 17:40:00 EDT, Injection, Partial fill upon patient request if the prescription is for a schedule II opioid drug. Start Date: 02/24/21 Status: OrderedLasix 40 mg oral tablet 40 mg, 1, tablet, By Mouth, Daily, Refills 0, Maintenance, 07/24/20 9:13:00 EST, Partial fill upon patient request Start Date: 07/24/20 Status: OrderedMaalox Plus Liquid 30 mL, By Mouth, Every 4 hours, PRN Other, Heartburn, 0 Refills, Maintenance, 07/24/20 9:11:00 EST, Suspension, Partial fill upon patient request Start Date: 07/24/20 Status: OrderedMilk of Magnesia Liquid 30 mL, By Mouth, Daily, PRN Constipation, 0 Refills, Maintenance, 07/24/20 9:13:00 EST, Suspension, Partial fill upon patient request Start Date: 07/24/20 Status: OrderedMiraLax Powder 1 pack/packet = 17 Gm, By Mouth, Daily, May take OTC, hold for loose stools., 0 Refills, Maintenance, 07/24/20 9:13:00 EST, Powder, Partial fill upon patient request Start Date: 07/24/20 Status: Orderednystatin 356267 u/ml oral suspension 6 mL = 600,000 units, Swish and Swallow, 4 times a day, 0 Refills, Maintenance, 02/24/21 17:40:00 EDT, Suspension Start Date: 02/24/21 Stop Date: 03/01/21 Status: OrderedNystatin Powder 1 applicator, Topically, 2 times a day, END Date: 7 days after resolution candidal rash, 0 Refills, Maintenance, Powder Start Date: 02/25/21 Status: Orderedondansetron 4 mg oral tablet, disintegrating = 4 mg, By Mouth, 3 times a day, PRN Nausea & Vomiting, # 30 tablet, 0 Refills, Maintenance, 07/26/19 8:40:25 EST, Tablet Start Date: 07/26/19 Status: Orderedpantoprazole 40 mg oral delayed release tablet 1 tablet = 40 mg, By Mouth, Daily, # 30 tablet, 1 Refills, Maintenance, 10/15/19 10:21:00 EST [...] EST, Print Requisition Start Date: 10/15/19 Status: Orderedsenna 187 mg oral tablet 1 tablet = 8.6 mg, By Mouth, Daily at bedtime, May take OTC, hold for loose stools., 0 Refills, Maintenance, 07/24/20 9:13:00 EST, Tablet, Partial fill upon patient request Start Date: 07/24/20 Status: Orderedspironolactone 25 mg oral tablet 25 mg, 1, tablet, By Mouth, Daily, Refills 0, Maintenance, 07/24/20 9:14:00 EST, Partial fill upon patient request Start Date: 07/24/20 Status: OrderedSuboxone 8 mg-2 mg sublingual film 2 film, Sublingual, Daily, dissolve under the tongue, 0 Refills, Maintenance, 07/23/20 9:02:00 EST, Film, Partial fill upon patient request Start Date: 07/23/20 Status: Orderedtamsulosin 0.4 mg oral capsule 0.4 [...] Requisition, Dry Weight Start Date: 10/15/19 Status: Ordered Problem List Condition Effective Dates [...]
--- OUTSIDE RECORDS SUMMARY | 2022-09-29 13:35 | XMS_ITS | Continuity of Care Document ---
:1965 Author Organization [facility] Address [address] [place] [address]- Care Team Providers Name Role Phone [place]-Juanis Cook MD Primary Care Physician Encounter [facility] [place] Date(s): 10/29/19 - 10/29/[address] [address]- [facility] Discharge Disposition: A-D/C Walkout Attending Physician: Not on Staff, Attending MD [...] Prinzmetal angina(Confirmed) Active SUBDURAL HEMORRHAGE(Confirmed) 03/10/09 Active Vital Signs Most recent to oldest [Reference Range]: 1 Oxygen Saturation [94-100 %] 99 % (10/29/19 4:34 PM) Pulse Rate [55-90 bpm] 67 bpm (10/29/19 4:34 PM) Blood Pressure [90-138/55-84 mm Hg] 104/68 mm Hg (10/29/19 4:34 PM) Respiratory Rate [16-30 br/min] 20 br/min (10/29/19 4:34 PM) Temperature [96.8-100.4 DegF] 97.7 DegF (10/29/19 4:34 PM) Mode of Delivery (Oxygen) Room air (10/29/19 4:34 PM) Blood pressure sites Arm, right (10/29/19 4:34 PM) Temperature Route Oral (10/29/19 4:34 PM) Social History Social History Type Response Smoking Status Current every day smoker; Ty pe: Cigarettes; Number of years: 40; entered on: 05/09/18 Sex Male
--- OUTSIDE RECORDS SUMMARY | 2022-09-29 13:35 | XMS_ITS | Continuity of Care Document ---
:1965 Author Organization [facility] Address [address] [place] [address]- Care Team Providers Name Role Phone Real Arambula DO Primary Care Physician Encounter [facility] [place] [facility] [id number] Date(s): 11/24/21 - 11/24/[address] [address]- Encounter Diagnosis Alcohol withdrawal (Final) - 11/24/21 GERD (gastroesophageal reflux disease) (Final) - 11/24/21 Vomiting (Final) - 11/24/21 Discharge Disposition: A-D/C Home Attending Physician: Andrew Rodriguez MD Admitting Physician: Andrew Rodriguez MD Referring Physician: Not on Staff, Referring [...] 10:28:00 EDT, Aerosol, Route to Pharmacy Electronically, [id number], [facility], 170, cm, 01/04/20 4:32:00 EDT,... Start [...] 07/24/20 9:35:00 EST, Route to Pharmacy Electronically, [facility], Partial fill upon patient request, 177, [...] upon patient request Start Date: 07/24/20 Status: Orderedfamotidine 20 mg oral tablet 20 mg, 1, tablet, By Mouth, 2 times a day, # 60 tablet, Refills 0, Tot. Refills 0, Maintenance, 11/24/21 15:02:00 EDT, Route to Pharmacy Electronically, [facility], Partial fill upon patient request if the prescription is for a schedule I... Start Date: 11/24/21 Status: Orderedfolic acid 1 mg oral tablet [...] 0 Refills, Maintenance, 01/04/20 10:50:00 EDT, Powder, [facility], 170, cm, 01/04/20 4:32:00 [...] patient request Start Date: 07/24/20 Status: Orderednystatin 039461 u/ml oral suspension 6 mL = 600,000 units, Swish and Swallow, 4 times a day, 0 Refills, Maintenance, 02/24/21 17:40:00 EDT, Suspension Start Date: 02/24/21 Stop Date: 03/01/21 Status: OrderedNystatin Powder 1 applicator, Topically, 2 times a day, END Date: 7 days after resolution candidal rash, 0 Refills, Maintenance, Powder Start Date: 02/25/21 Status: Orderedomeprazole 40 mg oral enteric coated capsule 1 capsule = 40 mg, By Mouth, Daily, # 30 capsule, 0 Refills, Maintenance, 11/24/21 15:02:00 EDT, EC Capsule, [facility], Partial fill upon patient request if the prescription is for a schedule II opioid drug., 178, cm, 11/24/21 14:30:00 E... Start Date: 11/24/21 Status: Orderedondansetron 4 mg oral tablet, disintegrating [...] upon patient request Start Date: 07/23/20 Status: OrderedSuboxone 8 mg-2 mg sublingual film 2 film, Sublingual, Daily, dissolve under the tongue, # 10 film, 0 Refills, Maintenance, 11/24/21 15:05:00 EDT, Film, Partial fill upon patient request if the prescription is for a schedule II opioid drug. 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 LUNGS AND PLEURA: Clear lungs. Normal pulmonary vascularity. No pleural effusion. No pneumothorax. HEART, MEDIASTINUM AND ANIA: Unchanged. BONES AND SOFT TISSUES: No acute abnormality. IMPRESSION: No acute abnormality. WSN: [id number] Ordering Physician: Andrew Stout Dictated By: Dhaval Bone MD Dictated Date/Time: 11/24/21 7:51 am Reviewed By: Dhaval Bone MD Signed By: Dhaval Bone MD Signed Date/Time: 11/24/21 7:51 am Transcribed By: KELLY Transcribed Date/Time: 11/24/21 7:49 am Vital Signs Most recent to oldest 1 2 3 [Reference Range]: Height 178 cm 178 cm 178 cm (11/24/21 2:30 PM) (11/24/21 1:47 PM) (11/24/21 12: 12 PM) Weight 115.9 kg 115.9 kg 115.9 kg (11/24/21 2:30 PM) (11/24/21 1:47 PM) (11/24/21 12: 12 PM) Oxygen Saturation [94-100 %] 97 % 97 % 98 % (11/24/21 2:30 PM) (11/24/21 1:47 PM) (11/24/21 12: 12 PM) Pulse Rate [55-90 bpm] 90 bpm 90 bpm 87 bpm (11/24/21 2:30 PM) (11/24/21 1:47 PM) (11/24/21 12: 16 PM) Body Mass Index [18.5-24.99] 36.58 36.58 36. 58 *>HHI* *>HHI* *>HHI* (11/24/21 2:30 PM) (11/24/21 1:47 PM) (11/24/21 12: 12 PM) Blood Pressure [90-138/55-84 176/112 mm Hg 164/95 mm Hg 160 /96 mm Hg mm Hg] *H* *H* *H* (11/24/21 2:30 PM) (11/24/21 1:47 PM) (11/24/21 12: 16 PM) Respiratory Rate [16-30 18 br/min 18 br/min 18 br/mi n br/min] (11/24/21 2:30 PM) (11/24/21 1:47 PM) (11/24/21 12: 16 PM) Temperature [96.8-100.4 DegF] 98.1 DegF 98.3 DegF 98 .3 DegF (11/24/21 1:47 PM) (11/24/21 10:34 AM) (11/24/21 10 :14 AM) Mode of Delivery (Oxygen) Room air Room air Room a ir (11/24/21 2:30 PM) (11/24/21 1:47 PM) (11/24/21 12: 12 PM) Blood pressure sites Arm, left Arm, left Arm, right (11/24/21 2:30 PM) (11/24/21 12:12 PM) (11/24/21 6: 08 AM) Temperature Route Oral Oral Oral (11/24/21 1:47 PM) (11/24/21 10:34 AM) (11/24/21 6: 08 AM) Dry Weight 115.9 kg 115.9 kg 115.9 kg (11/24/21 2:30 PM) (11/24/21 1:47 PM) (11/24/21 12: 12 PM) Social History Social History Type Response Smoking Status Current every day smoker; Ty pe: Cigarettes; Number of years: 40; entered on: 05/09/18 Sex Male
--- OUTSIDE RECORDS SUMMARY | 2022-09-29 13:35 | XMS_ITS | Continuity of Care Document ---
:1965 Author Organization [facility] Address [address] [place] [address]- Care Team Providers Name Role Phone Joss-Joey GÓMEZ, Juanis Primary Care Physician [phone] [place]counter [facility] [place] Date(s): 01/03/20 - 01/04/[address] [address] En[facility] Diagnosis Tachypnea (Final) - 01/03/20 Discharge Disposition: A-D/C Home Attending Physician: Valentino Alcazar DO Admitting Physician: Lion GÓMEZ, Alexander Contreras Referring Physician: Not on Staff, Referring MD [...] 10:28:00 EDT, Aerosol, Route to Pharmacy Electronically, [id number], [facility], 170, cm, 01/04/20 4:32:00 [...] Start Date: 10/15/19 Stop Date: 10/18/19 Status: Orderedazithromycin 500 mg oral tablet = 500 mg, By Mouth, Daily, for 3 days, # 3 tablet, 0 Refills, Acute 01/07/20 10:27:00 EDT, 01/04/20 10:27:00 EDT, Tablet, [facility], 170, cm, 01/04/20 4:32:00 EDT, Height, 100, kg, 01/03/20 9:31:00 EDT, Dry Weight Start Date: 01/04/20 Stop Date: 01/07/20 Status: Orderedfolic acid 1 mg oral tablet [...] 0 Refills, Maintenance, 01/04/20 10:50:00 EDT, Powder, [facility], 170, cm, 01/04/20 4:32:00 EDT, Height, [...] Exam Date Time Procedure Performing Provider Status 01/03/20 12:13 AM Chest Portable Jakbo Rodriguez; Auth (Verified ) Notes:(Chest Portable) Reason For Exam: Shortness of BreathRESULT: Chest Portable Chest Portable Ap upright 12:04 am 01/03/2020 Refer to EMR; Reason: Shortness of Breath; Clinical Question(s): CHF; Hx of Present Illness: Pt reports SOB, productive cough, chest pain heaviness, joint pain for approx 1 wk. Today went for a walk and nearly collapsed. Reports vomiting diarrhea x4 days, poor PO intake.; COMPARISON: 11/28/2019. FINDINGS: LINES AND TUBES: None. LUNGS AND PLEURA: Clear lungs. Normal pulmonary vascularity. No pleural effusion. No pneumothorax. HEART, MEDIASTINUM AND ANIA: Heart is normal in size. Normal mediastinal and hilar contour. BONES AND SOFT TISSUES: No acute abnormality. IMPRESSION: No acute abnormality. I have personally reviewed the images and I agree with this report. WSN: [id number] Ordering Physician: Leonor Mckenzie Dictated By: Talib Fairchild MD Dictated Date/Time: 01/03/20 7:57 am Reviewed By: Dariel Freire MD Signed By: Dariel Freire MD Signed Date/Time: 01/03/20 8:02 am Transcribed By: KELLY Transcribed Date/Time: 01/03/20 7:15 am Vital Signs Most recent to oldest 1 2 3 [Reference Range]: Height 170 cm 170 cm 170 cm (01/04/20 4:32 AM) (01/04/20 12:29 AM) (01/03/20 8:07 PM) Weight 100.0 kg (01/03/20 9:31 AM) Oxygen Saturation [94-100 %] 97 % 97 % 99 % (01/04/20 7:00 AM) (01/04/20 4:32 AM) (01/04/20 12:29 AM) Pulse Rate [55-90 bpm] 99 bpm 83 bpm 96 bpm *H* (01/04/20 4:32 AM) *H* (01/04/20 7:00 AM) (01/04/20 12:29 A M) Body Mass Index [18.5-24.99] 34.6 *>HHI* (01/03/20 9:31 AM) Blood Pressure [90-138/55-84 mm 136/82 mm Hg 148/85 mm Hg 123/72 mm Hg Hg] (01/04/20 10:25 AM) *H* (01/04/20 4:32 A M) (01/04/20 7:00 AM) Respiratory Rate [16-30 br/min] 18 br/min 20 br/min 20 br/min (01/04/20 7:00 AM) (01/04/20 4:32 AM) (01/04/20 12:29 AM) Temperature [96.8-100.4 DegF] 98.4 DegF 97.9 DegF 97 .8 DegF (01/04/20 7:00 AM) (01/04/20 4:32 AM) (01/04/20 12:29 AM) Mode of Delivery (Oxygen) Room air Room air Room a ir (01/04/20 7:00 AM) (01/04/20 4:32 AM) (01/04/20 12:29 AM) Blood pressure sites Arm, left Arm, right Arm, left (01/04/20 7:00 AM) (01/04/20 4:32 AM) (01/04/20 12:29 AM) Temperature Route Oral Oral Oral (01/04/20 7:00 AM) (01/04/20 4:32 AM) (01/04/20 12:29 AM) Dry Weight 100.0 kg (01/03/20 9:31 AM) Dry Weight Obtained Via Bed scale (01/03/20 9:31 AM) Social History Social History Type Response Smoking Status Current every day smoker; Ty pe: Cigarettes; Number of years: 40; entered on: 05/09/18 Sex Male
--- OUTSIDE RECORDS SUMMARY | 2022-09-29 13:35 | XMS_ITS | Continuity of Care Document ---
:1965 Author Organization [facility] Address [address] [place] [id number]- Care Team Providers Name Role Phone Real Arambula DO Primary Care Physician Encounter [facility] Date(s): 07/20/22 - 07/21/[address] [id number] Encounter Diagnosis Alcohol intoxication (Final) - 07/18/22 Discharge Disposition: A-D/C Home Attending Physician: Mehran Calabrese MD Admitting Physician: Chiquita Dawn MD Referring Physician: Not on Staff, Referring MD Allergies, Adverse Reactions, Alerts No Known Allergies Immunizations Given and Recorded Vaccine Date Status Refusal Reason influenza virus vaccine, inactivated 07/02/22 Given influenza virus vaccine, inactivated 05/30/20 Recorded influenza virus vaccine, inactivated 06/04/19 Recorded influenza virus vaccine, inactivated 09/18/18 Given influenza virus vaccine, inactivated 08/12/16 Recorded influenza virus vaccine, inactivated 05/14/13 Recorded influenza virus vaccine, inactivated 10/02/11 Given SARS-CoV-2 mRNA ([id number]-[id number]) vax 03/31/22 Recorde d SARS-CoV-2 mRNA (jawholh-tfcz-aslsi) vax 12/24/21 Recorde d SARS-CoV-2 (COVID-19) mRNA BNT-162b2 vac 11/04/20 Recorde d SARS-CoV-2 (COVID-19) mRNA BNT-162b2 vac 10/14/20 Recorde d tetanus/diphtheria/pertussis, acel(Tdap) 12/21/18 Recorde d tetanus/diphtheria/pertussis, acel(Tdap) 11/04/18 Recorde d tetanus/diphtheria/pertussis, acel(Tdap) 9/9/13 Recorde d pneumococcal 23-valent vaccine 10/03/14 Recorded pneumococcal 23-valent vaccine 03/28/09 Given FluLaval (oldterm) 06/16/10 Given Not Given Vaccine Date Status Refusal Reason influenza virus vaccine, inactivated1 06/13/19 Not Given Patient Refuses 1Result Comment: Patient states I already got it Medications acamprosate 333 mg oral delayed release tablet 2 tablet = 666 mg, By Mouth, 3 times a day, # 540 tablet, 1 Refills, Maintenance, 07/21/22 9:35:00 EST, EC Tablet, [facility]/pharmacy #[id number], Partial fill upon patient request if the prescription is for a schedule II opioid drug., 165.2, cm, 07/21/22 7:17:00... Start Date: 07/21/22 Status: OrderedAcetaminophen Tablet 650 mg, Tablet, By Mouth, Every 4 hours, PRN for Pain , Mild, Temperature Greater than 100.5, Routine, 07/18/22 19:20:00 EST Start Date: 07/18/22 Stop Date: 07/21/22 Status: Discontinuedalbuterol CFC free 90 mcg/inh inhalation aerosol 2, puffs, Inhalation, 4 times a day, PRN, # 18 Gm, Refills 0, Tot. Refills 0, Maintenance, 01/04/20 10:28:00 EDT, Aerosol, Route to Pharmacy Electronically, [id number], [facility] 3, 170, cm, 01/04/20 4:32:00 EDT,... Start Date: 01/04/20 Status: OrderedamLODIPine 5 mg oral tablet 5 mg, 1, tablet, By Mouth, Daily, # 30 tablet, Refills 0, Tot. Refills 0, Maintenance, 10/15/19 10:20:00 EST, Print Requisition, Dry Weight Start Date: 10/15/19 Status: OrderedARIPiprazole 5 mg oral tablet 5 mg, 1, tablet, By Mouth, Daily, # 30 tablet, Refills 0, Maintenance, 07/21/22 9:37:00 EST, Partialfill upon patient request if the prescription is for a schedule II opioid drug. Start Date: 07/21/22 Status: Orderedatorvastatin 40 mg oral tablet 1 tablet = 40 mg, By Mouth, Daily at bedtime, # 30 tablet, 3 Refills, Maintenance, 07/21/22 16:49:00EST, Tablet, [facility]/pharmacy #[id number], Partial fill upon patient request if the prescription is for a schedule II opioid drug., 165.2, cm, 07/21/22 11:23:00... Start Date: 07/21/22 Status: OrderedbuPROPion 150 mg/24 hours (XL) oral tablet, extended release 1 tablet = 150 mg, By Mouth, Every 24 hours, # 30 tablet, 3 Refills, Maintenance, 07/21/22 9:37:00 EST, XL Tablet, [facility]/pharmacy #[id number], Partial fill upon patient request if the prescription is for a schedule II opioid drug., 1 tablet By Mouth Every 24... Start Date: 07/21/22 Status: Orderedcyclobenzaprine 10 mg oral tablet 10 mg, 1, tablet, By Mouth, 3 times a day, PRN, pain/ spasms/ body aches, # 90 tablet, Refills 1, Tot. Refills 1, Maintenance, Other, 07/21/22 9:35:00 EST, Route to Pharmacy Electronically, [facility]/pharmacy #[id number], Partial fill upon patient request if the... Start Date: 07/21/22 Status: Orderedfolic acid 1 mg oral tablet 1 mg, 1, tablet, By Mouth, Daily, # 30 tablet, Refills 5, Tot. Refills 5, Maintenance, 07/21/22 9:34:00 EST, Route to Pharmacy Electronically, [facility]/pharmacy #[id number], 165.2, cm, 07/21/22 7:17:00 EST, Height, 100.7, kg, 07/20/22 15:02:00 EST, Dry Weight Start Date: 07/21/22 Stop Date: 01/17/23 Status: OrderedhydrOXYzine pamoate 25 mg oral capsule [...] 0 Refills, Maintenance, 01/04/20 10:50:00 EDT, Powder, [facility] 3, 170, cm, 01/04/20 4:32:00 EDT, Height, 100, kg, 01/03/20 9:3... Start Date: 01/04/20 Stop Date: 02/03/20 Status: OrderedLasix 40 mg oral tablet 40 mg, 1, tablet, By Mouth, Daily, Refills 0, Maintenance, 07/24/20 9:13:00 EST, Partial fill upon patient request Start Date: 07/24/20 Status: Orderedmethadone 10 mg oral tablet 15 mg, Tablet, By Mouth, Once, EARLE, 07/21/22 9:31:00 EST, Stop date 07/21/22 9:31:00 EST Start Date: 07/21/22 Stop Date: 07/21/22 Status: Completednicotine 14 mg/24 hr transdermal film, extended release 1 patch, Topically, Daily, # 30 patch, 2 Refills, Maintenance, 07/21/22 9:34:00 EST, Patch, [facility]/pharmacy #[id number], Partial fill upon patient request if the prescription is for a schedule II opioid drug., 1 patch Topically Daily, 165.2, cm, 07/21/22 7:17:... Start Date: 07/21/22 Status: Orderedpantoprazole 40 mg oral delayed release tablet = 40 mg, By Mouth, Daily, # 30 tablet, 2 Refills, Maintenance, 07/21/22 9:33:00 EST, EC Tablet, 165.2, cm, 07/21/22 7:17:00 EST, Height, 100.7, kg, 07/20/22 15:02:00 EST, Dry Weight Start Date: 07/21/22 Status: OrderedPARoxetine 40 mg oral tablet 40 mg, 1, tablet, By Mouth, Daily in AM, # 30 tablet, Refills 5, Tot. Refills 5, Maintenance, 07/21/22 9:33:00 EST, Route to Pharmacy Electronically, [facility]/pharmacy #[id number], 165.2, cm, 07/21/22 7:17:00 EST, Height, 100.7, kg, 07/20/22 15:02:00 EST, Dry We... Start Date: 07/21/22 Stop Date: 01/17/23 Status: OrderedProscar 5 mg oral tablet 1 tablet = 5 mg, By Mouth, Daily, # 30 tablet, 0 Refills, Maintenance, 10/15/19 10:20:00 EST, Tablet Start Date: 10/15/19 Status: Orderedpyridoxine 50 mg oral tablet 50 mg, 1, tablet, By Mouth, Daily, # 30 tablet, Refills 0, Tot. Refills 0, Maintenance, 07/02/22 12:21:00 EDT, Route to Pharmacy Electronically, [facility], 178, cm, 11/24/21 14:30:00 EDT, [...] By Mouth, Daily, # 30 tablet, Refills 5, Tot. Refills 5, Maintenance, 07/21/22 9:34:00 EST, Route to Pharmacy Electronically, [facility]/pharmacy #[id number], 165.2, cm, 07/21/22 7:17:00 EST, Height, 100.7, kg, 07/20/22 15:02:00 EST, Dry Weight Start Date: 07/21/22 Stop Date: 01/17/23 Status: Ordered Problem List Condition Confirmation Course Effective Dates Status Health I nformant Status Alcoholic hepatitis Confirmed Active Anxiety Confirmed Active Benign prostatic Confirmed Active hyperplasia CHRONIC ISCHEMIC Confirmed 2008 Active HEART DISEASE, UNSPECIFIED Cirrhosis Confirmed Active [...] Exam Date Time Procedure Performing Provider Status 07/18/22 3:07 PM Chest Portable Loan Matta; [place] (Verified) Notes:(Chest Portable) Reason For Exam: Shortness of BreathRESULT: Chest Portable Chest Portable Hx of Present Illness: Pt coming from home, pt withdrawing from ETOH and cocaine heroine. Last drinktoday - 1 quart, heroine yesterday 3-4 bags .Pt c o CP, and vomiting blood x few days.; Reason: Shortness of Breath; Clinical Question(s): CHF COMPARISON: 06/30/2022. FINDINGS: LINES AND TUBES: None. LUNGS AND PLEURA: Clear lungs. Normal pulmonary vascularity. No pleural effusion. No pneumothorax. HEART, MEDIASTINUM AND ANIA: Heart is normal in size. BONES AND SOFT TISSUES: No acute abnormality. IMPRESSION: No acute abnormality. WSN: [id number] Ordering Physician: Talib Amin Dictated By: Nivia Fragoso MD Dictated Date/Time: 07/18/22 3:24 pm Reviewed By: Nivia Fragoso MD Signed By: Nivia Fragoso MD Signed Date/Time: 07/18/22 3:24 pm Transcribed By: KELLY Transcribed Date/Time: 07/18/22 3:24 pm Vital Signs Most recent to oldest 1 2 3 [Reference Range]: Height 165.2 cm 165.2 cm 165.2 cm (07/21/22 11:23 AM) (07/21/22 7:17 AM) (07/21/22 3:33 AM) Weight 100.7 kg 111.5 kg 100 kg (07/20/22 3:02 PM) (07/20/22 2:27 PM) (07/20/22 10:15 AM) Oxygen Saturation [94-100 99 % 96 % 98 % %] (07/21/22 11:23 AM) (07/21/22 7:17 AM) (07/21/22 3:33 AM) Pulse Rate [55-90 bpm] 84 bpm 76 bpm 86 bpm (07/21/22 11:23 AM) (07/21/22 7:17 AM) (07/21/22 3:33 AM) Body Mass Index 36.9 kg/m2 40.86 kg/m2 36.64 kg/m2 [18.5-24.99 kg/m2] *>HHI* *>HHI* *>HHI* (07/20/22 3:02 PM) (07/20/22 2:27 PM) (07/20/22 10:15 AM) Blood Pressure 145/79 mm Hg 121/79 mm Hg 124/84 mm Hg [90-138/55-84 mm Hg] *H* (07/21/22 7:17 AM) ( 2 3:33 AM) (07/21/22 11:23 AM) Respiratory Rate [16-30 18 br/min 18 br/min 18 br/mi n br/min] (07/21/22 11:23 AM) (07/21/22 10:20 AM) ( 9:48 AM) Temperature [96.8-100.4 98.0 DegF 97.3 DegF 97.6 Deg F DegF] (07/21/22 11:23 AM) (07/21/22 7:17 AM) (07/21/22 3:33 AM) Mode of Delivery (Oxygen) Room air Room air Room a ir (07/21/22 11:23 AM) (07/21/22 7:17 AM) (07/21/22 3:33 AM) Blood pressure sites Arm, right Arm, right Arm, left (07/21/22 11:23 AM) (07/21/22 7:17 AM) (07/21/22 3:33 AM) Temperature Route Oral Oral Oral (07/21/22 11:23 AM) (07/21/22 7:17 AM) (07/21/22 3:33 AM) Dry Weight 100.7 kg 111.5 kg (07/20/22 3:02 PM) (07/20/22 2:27 PM) Social History Social History Type Response Smoking Status Current every day smoker; Ty pe: Cigarettes; Number of years: 40; entered on: 05/09/18 Sex Male Consult note Argelia Murdock: VERIFY, PERFORM, SIGN Event Display: Consult Authored Date: Patient: DANIELLE VALENZUELA Age: 57 years Sex: Male : 1965 Associated Diagnoses: None Author: Argelia Murdock Patient requested referrals to [facility] programs, as well as counseling. Patient has an upcoming appointment for therapy on07/26/2022 at 2:00pm with Claritza Galo. [facility] referrals were also submitted. I will contunue to follow up on bed availability at the treatment programs. Addiction Consultation Team [address] [place] [id number] Patient: Danielle Valenzuela (: 1965) Date: 07/20/2022 You have been referred to the following programs: You need to call daily/ to check for bed availability [facility] (All Programs) [phone] Ask to speak with Eva to check for bed availability Mandi Hong [address] [place] [id number], [facility] Therapy Appointment:07/26/2022 at 2:00pm with Claritza Galo. Your counselor will call you at the time of the appointment for an over the phone therapy session. A referral has been made to [facility] on your behalf. A staff member will notify you after discharge to schedule a day/time for an intake. Argelia Murdock: PERFORM, SIGN, VERIFY Event Display: Consult Authored Date: [id number] Patient: DANIELLE VALENZUELA Age: 57 years Sex: Male : 1965 Associated Diagnoses: None Author: Argelia Murdock Attempted to meet with patient to discuss addiction resources. Patient did not want to meet. Patientstated he was tired and if I could come back another time. I will continue to follow up with patientto see what resources are requested. Admission evaluation note Sally GÓMEZ, [place]: MODIFY, MODIFY, MODIFY, MODIFY, MODIFY, MODIFY, MODIFY, MODIFY, MODIFY, PERFORM, MODIFY, MODIFY, MODIFY, MODIFY, MODIFY, MODIFY, MODIFY Event Display: Admission Note Authored Date: [id number] Patient: ??DANIELLE VALENZUELA ? Age:??57 Years?Sex:??Male?:??1965?? Chief Complaint/Reason for Consultation Pt coming from home, pt withdrawing from ETOH and cocaine/heroine. Last drink today - 1 quart, heroine yesterday 3-4 bags .Pt c/o CP, and vomiting blood x few days. History of Present Illness 57-year-old male with past medical history of TBI/subdural hematoma, hypertension, hyperlipidemia, ischemic heart disease, alcohol abuse and cirrhosis who presents with reported hematemesis for past few days, concern of alcohol, cocaine, heroin withdrawal with last drink of alcohol earlier today and last use of heroin, cocaine 2 days prior as well as shortness of breath, congestion, chest pain, nausea, vomiting, diarrhea, upper quadrant pain, chest pain similar to previous cardiac event. Multiple concerns - depression leading to excessive alcohol use average 1 quart rum daily last use earlier today and does feel shaky which is typically how withdrawal goes for him in past, has had DTsin past but no hx withdrawal seizures, hx cocaine+heroin almost daily use never IVDU with last use 2days ago - having nausea/vomiting/diarrhea/cramping abdominal discomfort x1wk, sharp substernal CP x1 day localized to mid-sternum or just right of sternum was concerned about cardiac event due to prior hx of similar CP resulting in requiring 1x SKIP in past, also intermittent diaphoresis,??1 week of SO B/wheezing/cough+green phlegm in setting of known COPD, current smoking, and not taking medications incl COPD meds due to using alcohol+drugs (has happened in the past). 1 episode streaked with blood afew days ago and then after brown/black in appearance, then latest has been??bilious nonbloody. Gets medications filled at [facility] pharmacy but does not know his med list - does believe I can go byext Rx/med hx from [facility] - also reports not currently taking any of his medications, last use about 2-3 weeks if not 1 month ago. Denies HI/AVH but does endorse SI-reports passive SI with thoughts but would not act on it. He reports despite forgetfullness due to TBI he does make his own medical decisions without assistance. In ED, given Maalox, clonidine, famotidine, mag sulfate, potassium chloride packet, 1L NS w/??40mEqK. Review of Systems as per HPI Objective Vital Signs?? Temperature: 98.3 DegF (07/18/22 19:18:00) Temperature Route: Oral (07/18/22 19:18:00) Pulse Rate:??98 bpm??High (07/18/22 19:18:00) Respiratory Rate: 17 br/min (07/18/22 19:18:00) Systolic Blood Pressure: 116 mm Hg (07/18/22 19:18:00) Diastolic Blood Pressure: 66 mm Hg (07/18/22 19:18:00) Blood pressure sites: Arm, left (07/18/22 19:18:00) Mean Arterial Pressure: 83 mm Hg (07/18/22 19:18:00) Pulse Pressure: 50 mm Hg (07/18/22 19:18:00) Oxygen Saturation: 98 % (07/18/22 19:18:00) Mode of Delivery (Oxygen): Room air (07/18/22 19:18:00) Early Warning Score: 3 (07/18/22 19:19:48) Temperature, Opiate Withdrawal: 98.2 DegF (07/18/22 14:40:00) Temperature Route, Opiate Withdrawal: Oral (07/18/22 14:40:00) Pulse Rate, Opiate Withdrawal: 90 bpm (07/18/22 14:40:00) Respiratory Rate, Opiate Withdrawal:??12 br/min??Low (07/18/22 14:40:00) Systolic BP, Opiate Withdrawal: 128 mm Hg (07/18/22 14:40:00) Diastolic BP, Opiate Withdrawal:??89 mm Hg??High (07/18/22 14:40:00) ? Physical Exam On review of vital signs, afebrile, stable on room air, mild tachycardia, normotensive. ?? Vital Signs (24 hrs) Last Charted?? Minimum?? Maximum?? Temp?? I have read the above and understand it.?? 07/18/2022 19:18?? I have read the above and understand it.?? 07/18/2022 19:18 ?? I have read the above and understand it.?? 07/18/2022 19:18?? Resp Rate?? 17?? 07/18/2022 19:18?? L??12?? 07/18/2022 14:37 ?? 17?? 07/18/2022 19:18?? SBP?? 116?? 07/18/2022 19:18?? 112?? 07/18/2022 18:24 ?? 135?? 07/18/2022 15:47?? DBP?? 66?? 07/18/2022 19:18?? 66?? 07/18/2022 19:18 ?? H??95?? 07/18/2022 15:47? General Appearance: The patient is a??male and in NAD. Eyes: EOMI. Cardiovascular: RRR S1 and S2 heard with no M/R/G. No crepitus on palpation of chest. Some sorenessthat pt says reproduces CP when palpation midsternum/right of midsternum. Respiratory: ??Breath sounds clear/diminished, stable on room air, no audible wheezing or crackles. GI: Somewhat protuberant/mildly distended but soft, +bs x4, diffuse tenderness throughout though ptreports more localized to RUQ not able to notice +hameed's sign, exam limited by significant voluntary guarding and diffuse nonspecific tenderness to palpation throughout abdomen, no rebound tendernessnoted-has pain with pushing down on abdomen not with releasing pressure. MS: ??No BLE pitting edema. Skin:??No rashes seen on extremities. Neuro: ??No slurred speech. Moving all extremities spontaneously, no notable focal deficits. Psych: Alert and oriented x3. Somewhat anxious. Some difficulties with recall- chronic due to TBI per pt report. ? Review of labs notable for no leukocytosis, normal hemoglobin, ongoing thrombocytopenia platelet count 52, unremarkable lytes and kidney and liver function except for noted hypokalemia 2.9 which was repleted with 40 mEq of potassium.?? CK normal, proBNP normal, and troponin x1 negative.?? Serum alcohol level 204.?? COVID RSV flu negative. ?? Chest x-ray reviewed and initially noting some perivascular congestion. EKG reviewed and noting normal sinus rhythm, no evidence of acute ischemic changes, some wandering baseline/artifact. Echo in 2020 noted ejection fraction 55 to 60%, mildly dilated right atrium and ventricle. ?? So far noting CIWA 7, COWS 7. Assessment/Plan 57-year-old male with past medical history of TBI/subdural hematoma, hypertension, hyperlipidemia, ischemic heart disease, alcohol abuse and cirrhosis who presents with concerns of polysubstance use/withdrawal, chest pain, abdominal pain/N/V/D, hematemesis, SOB/wheezing in setting of not taking home medications >2 weeks. Admitted for ACS rule out, management of etoh,cocaine,heroin withdrawal, hypokalemia, ACS rule out, suspected COPD exacerbation, passive SI. ?? Heavy alcohol abuse Alcohol withdrawal - reports ongoing heavy alcohol abuse 1 quart rum daily as a means to cope with depression per his report, reports when he is drinking does not take his medications so has not taken any for >2 closer to 4 weeks, last drink day of admission, is interested in cessation and open to medications to help with this Plan: - CIWA with prn ativan - thiamine, folate, pyridoxine - SW and addiction consults ?? Hypokalemia - initially had K 2.9 repleted with 40mEq PO, will recheck and give additional repletion as indicated ?? Chest pain ACS rule out Hx ischemic cardiomyopathy s/p 1x SKIP(per pt report) - reports 1d of CP midsternal/right of midsternum with intermittent diaphoresis that felt similar enough to his prior cardiac event that he was concerned, additionally given cocaine use 2 days prior to admission this is a risk factor for potential PR/demand ischemia - initial trop negative, EKG nonischemic; additionally was able to reproduce chest pain with palpation so more costochondral in nature at least per history/report of patient on initial evaluation Plan: - will trend 2 more troponins - resume atorvastatin - currently normotensive so will hold amlodipine-could resume if persistently hypertensive-AVOID beta blockers given recent cocaine use ?? Abdominal pain Bloody then bilious nonbloody emesis - diffuse abdominal pain, N/V/loose stools reported by pt - given nonspecific findings on exam and crampiness reported by pt may be related to heroin withdrawal vs. chronic or acute pancreatitis vs.alcohol gastritis but given hx cholecystectomy could be postchole pain (also unlikely as this was not a recent surgery) less likely to be acute cholecystitis given surgically absent gallbladder - recent CT A/P end of 06/2022 was nonacute - pt reporting hematemesis but on clarification was blood streaked then black/brown then bilious nonbloody so blood was more likely due to irritation and no signs of crepitus on exam and no abnormalities of thorax noted on CXR, also stable Hb and VSS Plan: - follow up lipase level - if normal will trial PO intake otherwise continue NPO except meds - resume PPI given concern of alcohol gastritis, PRN maalox, PRN simethicone - will hold off on imaging for now and monitor clinically - low dose IV dilaudid for pain control - 0.5mg q6h IV dilaudid for overnight pain mgmt, defer to day team as to further adjustments ?? Cocaine and heroin use (no IVDU per pt report) and withdrawal concern Tobacco use, current - last use of cocaine and heroin 2 days prior to admission per pt, never IVDU or benzo/other substances aside from nicotine used per pt Plan: - clonidine 0.1mg BID for symptom mgmt - COWS scoring as per RNs - addiction consult - nicotine patch ordered in case pt would like ?? COPD exacerbation - SOB/wheezing and cough +green??sputum over past few days??per pt report, however exam was unremarkable and pt afebrile, no leukocytosis, pt reports not taking home meds incl inhalers for past few weeks due to ongoing polysubstance use - will empirically treat as exacerbation with prn guafenesin for cough, duonebs scheduled+PRN - will hold home inhaler since giving duonebs - for now will hold off on doxycycline and prednisone given unremarkable lung exam as well as no fevers or leukocytosis ?? Depression/passive SI - pt reporting thoughts of harming self and denies HI/AVH and states would not act on thoughts but unable to name protective factors, states he is depressed and in a lot of pain on initial assessment,was agreeable to speak with SW and psychiatry - has been off meds including depression/psych meds for >2 closer to 4 weeks Plan: - will not resume bupropion and paxil at this time given has not taken in weeks per his report - psych and SW consults - SI precautions until cleared by psych ?? HFpEF ?Pulmonary edema (mild) on CXR - clinically difficult to ascertain whether volume overloaded but normal BNP and pt stable on room air - however per prior echo has HFpEF and supposed to be on lasix,spironolactone which he has also nottaken in weeks, CXR appears c/w mild pulmonary congestion - ddx HFpEF vs. COPD exac - due to not overt hypervolemia but want to also avoid CHF exacerbation and renal function WNL,hypo- not hyper- kalemia noted on admission, will resume PO lasix+spironolactone ?? Quality full code confirmed with patient on admission, pt seen 07/18 SCDs NPO except for meds pending lipase result ?? Precepted with Dr. Guajardo ?? Alma Zavala M.D. PGY-2, Internal Medicine Pager [phone] Histories Allergies Allergies ?(Active and Proposed Allergies Only) NKA? (Severity: Unknown severity, Onset: Unknown) ? Past Medical History/Problem List Active Problems??(20) Abdominal pain Alcohol withdrawal Alcoholic hepatitis Anxiety Benign prostatic hyperplasia Bilateral knee pain CHRONIC ISCHEMIC HEART DISEASE, UNSPECIFIED Cirrhosis Cocaine use Depression Hyperlipidemia Hypertension Marijuana use Mild diastolic dysfunction Nicotine use disorder Obese class II Portal hypertensive gastropathy Prinzmetal angina SUBDURAL HEMORRHAGE Use of opiates for therapeutic purposes ? Past Surgical History Esophagogastroduodenoscopy: 12/29/17 Cholecystectomy Oral surgery Craniotomy Total replacement of left knee joint ? Social History Alcohol Details:??Use: Current. ??Frequency: Daily. ??Type: Liquor. ??Other: 1 quart (rum) daily, last drink earlier today; no hx seizures from w/d, does have hx DTs in past. Substance Abuse Details:??Use: Current. ??Type: Cocaine, Heroin. ??Other: never IVDU; almost daily; last use of each 2 days ago. ??IV drug use: No. Tobacco Details:??Current every day smoker, Type: Cigarettes. ??40 Number of years:. ? Family History Mother: Cancer of breast Father: CAD - Coronary artery disease; Hypertension Other: Alcoholism; Substance user ? Medications Home Medications Albuterol (albuterol CFC free 90 mcg/inh inhalation aerosol)?2?puff(s)?Inhalation?4 times a day?as needed?as needed for wheezing Amlodipine (amLODIPine 5 mg oral tablet)?5?Milligram?1?tablet?By Mouth?Daily Atorvastatin (atorvastatin 40 mg oral tablet)?1?tab(s)?40?Milligram?By Mouth?Daily at bedtime BuPROpion (buPROPion 300 mg/24 hours (XL) oral tablet, extended release)?1?tab(s)?300?Milligram?By Mouth?Daily BuPROpion (buPROPion 150 mg/24 hours (XL) oral tablet, extended release)?1?tab(s)?150?Milligram?By Mouth?Every 24 hours Finasteride (Proscar 5 mg oral tablet)?1?tab(s)?5?Milligram?By Mouth?Daily Folic Acid (folic acid 1 mg oral tablet)?1?Milligram?1?tablet?By Mouth?Daily?for 30?Days Furosemide (Lasix 40 mg oral tablet)?40?Milligram?1?tablet?By Mouth?Daily HydrOXYzine (hydrOXYzine pamoate 25 mg oral capsule)?1?capsule?25?Milligram?By Mouth?Every 6 hours?as needed?Anxiety Omeprazole (omeprazole 40 mg oral enteric coated capsule)?1?capsule?40?Milligram?By Mouth?Daily?for 30?Days Paroxetine (PARoxetine 40 mg oral tablet)?40?Milligram?1?tablet?By Mouth?Daily Blue?for 30?Days Pyridoxine (pyridoxine 50 mg oral tablet)?50?Milligram?1?tablet?By Mouth?Daily?for 30?Days Spironolactone (spironolactone 25 mg oral tablet)?25?Milligram?1?tablet?By Mouth?Daily Tamsulosin (tamsulosin 0.4 mg oral capsule)?0.4?Milligram?1?capsule?By Mouth?Daily?for 30?Days Thiamine (thiamine 100 mg oral tablet)?100?Milligram?1?tablet?By Mouth?Daily?for 30?Days umeclidinium (Incruse Ellipta 62.5 mcg/inh inhalation powder)?1?inhalation?62.5?Microgram?Inhalation?Every 24 hours?for 30?Days?doses should be taken at least 24 hours apart ? Inpatient Medications Medications (24) Active SCHEDULED: (11) Albuterol/Ipratropium Inhalation Kitty 3mL (Duoneb Inhalation Solution) ??1 vials, BAND Nebulizer, 4 times a day Atorvastatin 40 mg Tablet (atorvastatin 40 mg oral tablet) ??40 mg, By Mouth, Daily at bedtime Clonidine 0.1 mg Tablet (cloNIDine 0.1 mg oral tablet) ??0.1 mg, By Mouth, 2 times a day Folic Acid 1 mg Tablet (folic acid 1 mg oral tablet) ??1 mg, By Mouth, Daily Furosemide 40 mg Tablet (Lasix 40 mg oral tablet) ??40 mg, By Mouth, Daily Multivitamin Tablet ??1 tablet, By Mouth, Daily NaCl 0.9% Flush 3ml (NaCL 0.9% Flush) ??3 mL, IV Push, Every 8 hours Pantoprazole 40 mg EC Tablet (pantoprazole 40 mg oral delayed release tablet) ??40 mg, By Mouth, Daily Pyridoxine 50 mg Tablet (pyridoxine 50 mg oral tablet) ??50 mg, By Mouth, Daily Spironolactone 25 mg Tablet (spironolactone 25 mg oral tablet) ??25 mg, By Mouth, Daily Thiamine 100 mg Tablet (thiamine 100 mg oral tablet) ??100 mg, By Mouth, Daily CONTINUOUS: (0) PRN: (13) Acetaminophen 325 mg Tablet (Acetaminophen Tablet) ??650 mg, By Mouth, Every 4 hours Al hydroxide/Mg hydroxide/simethicone 200 mg-200 mg-20 mg/5 mL Susp UD (Maalox Plus Liquid) ??15 mL, By Mouth, 4 times a day Albuterol/Ipratropium Inhalation Kitty 3mL (Duoneb Inhalation Solution) ??1 vials, BAND Nebulizer, Every 4 hours Guaifenesin 200mg/10mL Syrup UD (GuaiFENEsin Liquid) ??100 mg 5 mL, By Mouth, 4 times a day HYDROmorphone 0.5 mg/0.5 mL Inj Syringe (Dilaudid Inj) ??0.5 mg 0.5 mL, IV Push Slowly, Every 6 hours Lorazepam 1 mg Tablet (Ativan Tablet) ??1 mg, By Mouth, Every 2 hours Lorazepam 2 mg Tablet (Ativan Tablet) ??2 mg, By Mouth, Every 2 hours Lorazepam 2 mg Tablet (Ativan Tablet) ??2 mg, By Mouth, Every hour Melatonin 3 mg Tablet (Melatonin Tablet) ??3 mg, By Mouth, Daily at bedtime NaCl 0.9% Flush 3ml (NaCL 0.9% Flush) ??3 mL, IV Push, Every 8 hours Polyethylene Glycol 17 Gm Powder (MiraLax Powder) ??17 Gm 1 pack/packet, By Mouth, Daily Senna 8.6 mg / Docusate 50 mg tablet (Docusate/Senna Tablet) ??1 tablet, By Mouth, 2 times a day Simethicone 80 mg Chewable Tablet (Simethicone Tablet) ??80 mg, Chew, 3 times a day ? Results Recent Labs BLOOD COUNT & DIFF WBC 5.5 k/mm3 ()?? 07/18/2022 14:40 RBC 4.83 m/mm3 ()?? 07/18/2022 14:40 Hgb 14.8 Gm/dL ()?? 07/18/2022 14:40 Hct 43.3 % ()?? 07/18/2022 14:40 MCV 89.6 femtoliters ()?? 07/18/2022 14:40 MCH 30.6 pg ()?? 07/18/2022 14:40 MCHC 34.2 g/dL ()?? 07/18/2022 14:40 Platelet Count 52 k/mm3 (Low)?? 07/18/2022 14:40 RDW-SD 47.8 femtoliters (High)?? 07/18/2022 14:40 MPV 11.3 femtoliters ()?? 07/18/2022 14:40 Nucleated RBC (Automated) 0.0 #/100 WBC'S ()?? 07/18/2022 14:40 Abs. NRBC 0.0 k/mm3 ()?? 07/18/2022 14:40 Abs. Neut 2.9 k/mm3 ()?? 07/18/2022 14:40 Abs. Lymph 2.1 k/mm3 ()?? 07/18/2022 14:40 Abs. [place] 0.4 k/mm3 ()?? 07/18/2022 14:40 Abs. Eo 0.1 k/mm3 ()?? 07/18/2022 14:40 Abs. Baso 0.1 k/mm3 ()?? 07/18/2022 14:40 Neut % 52.2 % ()?? 07/18/2022 14:40 Lymph % 37.5 % ()?? 07/18/2022 14:40 [place] % 7.7 % ()?? 07/18/2022 14:40 Eos % 1.3 % ()?? 07/18/2022 14:40 Baso % 0.9 % ()?? 07/18/2022 14:40 Imm Gran 0.4 % ()?? 07/18/2022 14:40 Abs. Imm Gran 0.0 k/mm3 ()?? 07/18/2022 14:40 ?? CARDIAC CK, Total 24 units/L ()?? 07/18/2022 14:40 Troponin T Quant <0.01 ng/mL ()?? 07/18/2022 14:40 Nt-Probnp 20 pg/mL ()?? 07/18/2022 14:40 ?? CHEM GENERAL Sodium 141 mmol/L ()?? 07/18/2022 14:40 Potassium 2.9 mmol/L (Critical)?? 07/18/2022 14:40 Chloride 103 mmol/L ()?? 07/18/2022 14:40 Bicarbonate Level 24 mmol/L ()?? 07/18/2022 14:40 Anion Gap 14 ()?? 07/18/2022 14:40 Glucose Level 162 mg/dL (High)?? 07/18/2022 14:40 BUN 5 mg/dL (Low)?? 07/18/2022 14:40 Creatinine-Blood 0.9 mg/dL ()?? 07/18/2022 14:40 Estimated GFR Creatinine 93 ML/MIN/1.73 M2 ()?? 07/18/2022 14:40 Calcium 9.1 mg/dL ()?? 07/18/2022 14:40 Calcium, Ionized pH Corrected 1.15 mmol/L ()?? 07/18/2022 14:40 Magnesium 2.0 mg/dL ()?? 07/18/2022 14:40 Protein, Total 6.6 Gm/dL ()?? 07/18/2022 14:40 Albumin 4.1 Gm/dL ()?? 07/18/2022 14:40 AG Ratio 1.6 ()?? 07/18/2022 14:40 Alkaline Phosphatase 121 units/L ()?? 07/18/2022 14:40 AST (SGOT) 30 units/L ()?? 07/18/2022 14:40 ALT (SGPT) 18 units/L ()?? 07/18/2022 14:40 Bilirubin, Total 0.8 mg/dL ()?? 07/18/2022 14:40 ?? COAG D-Dimer 0.55 mg/L FEU ()?? 07/18/2022 14:40 ?? TOXICOLOGY/TDM Ethanol, Serum or Plasma 204 mg/dL (Abnormal)?? 07/18/2022 14:40 ?? VIROLOGY Influenza A PCR NEGATIVE ()?? 07/18/2022 14:40 Influenza B PCR NEGATIVE ()?? 07/18/2022 14:40 RSV PCR NEGATIVE ()?? 07/18/2022 14:40 COVID-19 PCR Specimen Source NASAL ()?? 07/18/2022 14:40 COVID-19 PCR Result NEGATIVE ()?? 07/18/2022 14:40 ? Microbiology ?? COVID-19, RSV, and Flu A/B, Rapid PCR?? Completed?? Source: Nasal Body Site: Nose Collected Dt/Tm: 07/18/2022 14:29 Last Updated Dt/Tm: 07/18/2022 17:53 ? Alma Zavala MD: PERFORM Event Display: Admission Note Authored Date: Rpt labs resulted, reviewed. Trops x2 negative, K and Mg WNL on rpt labs, mild anemia still within prior baseline, lipase WNL. Will trial PO diet. Jael Guajardo MD: PERFORM Event Display: Admission Note Authored Date: ?? The patient seen and examined on this date. The case reviewed in detail with admitting resident on this date. I reviewed and agree as above. Dvt, low risk. MD Bennett Zapata MD, Halil: PERFORM Event Display: Admission Note Authored Date: Seen and examined on 07/18/2022 Note Event Display: Cardiac Rhythm Strips Authored Date: Vika Wang RN: PERFORM Event Display: Discharge/Transfer Note Hospital Authored Date: Nursing Discharge Note Entered On: 07/21/2022 13:27 EST Performed On: 07/21/2022 13:26 EST by Vika Wang RN Nursing Discharge Note 2 Discharge Time : 07/21/2022 13:00 EST Discharge Level of Care at Discharge : Home/Fci/Foster Care Patient Left Unit Via : Wheelchair Patient Accompanied Off Unit with : Responsible adult DC Instructions Provided & Signed by Pt : Yes Patient Understands D/C Instructions : Yes Patient Instructions Discharge Signed : Yes Did Pt have Specialty Bed or Wound Vac : No Vika Wang RN - 07/21/2022 13:26 Mehran Huerta MD D: MODIFY, PERFORM, MODIFY Event Display: Discharge/Transfer Note Hospital Authored Date: [id number] Patient: ??DANIELLE VALENZUELA ? Age:??57 Years?Sex:??Male?:??1965?? Patient Information Discharge Location: W3 Primary Care Physician: Real Arambula DO Admit Date/Time: 07/20/22 08:58 Discharge Disposition Discharge Disposition: Home: No Services Discharge Diagnosis Alcohol intoxication (F10.929) Alcohol use disorder, moderate, dependence (F10.20) Cocaine use disorder (F14.10) Opioid use disorder, moderate, dependence (F11.20) Tobacco dependence (F17.200) ?? _ Discharge Medications Acamprosate (acamprosate 333 mg oral delayed release tablet)?2?tab(s)?666?Milligram?By Mouth?3 times a day Albuterol (albuterol CFC free 90 mcg/inh inhalation aerosol)?2?puff(s)?Inhalation?4 times a day?as needed?as needed for wheezing Amlodipine (amLODIPine 5 mg oral tablet)?5?Milligram?1?tablet?By Mouth?Daily Aripiprazole (ARIPiprazole 5 mg oral tablet)?5?Milligram?1?tablet?By Mouth?Daily Atorvastatin (atorvastatin 40 mg oral tablet)?1?tab(s)?40?Milligram?By Mouth?Dailyat bedtime BuPROpion (buPROPion 150 mg/24 hours (XL) oral tablet, extended release)?1?tab(s)?150?Milligram?By Mouth?Every 24 hours Cyclobenzaprine (cyclobenzaprine 10 mg oral tablet)?10?Milligram?1?tablet?By Mouth?3 times a day?as needed?pain/ spasms/ body aches?Other Finasteride (Proscar 5 mg oral tablet)?1?tab(s)?5?Milligram?By Mouth?Daily Folic Acid (folic acid 1 mg oral tablet)?1?Milligram?1?tablet?By Mouth?Daily?for 30?Days Furosemide (Lasix 40 mg oral tablet)?40?Milligram?1?tablet?By Mouth?Daily HydrOXYzine (hydrOXYzine pamoate 25 mg oral capsule)?1?capsule?25?Milligram?By Mouth?Every 6 hours?as needed?Anxiety Nicotine (nicotine 14 mg/24 hr transdermal film, extended release)?1?patch(es)?Topically?Daily Pantoprazole (pantoprazole 40 mg oral delayed release tablet)?40?Milligram?By Mouth?Daily Paroxetine (PARoxetine 40 mg oral tablet)?40?Milligram?1?tablet?By Mouth?Daily in AM?for 30?Days Pyridoxine (pyridoxine 50 mg oral tablet)?50?Milligram?1?tablet?By Mouth?Daily?for 30?Days Spironolactone (spironolactone 25 mg oral tablet)?25?Milligram?1?tablet?By Mouth?Daily Tamsulosin (tamsulosin 0.4 mg oral capsule)?0.4?Milligram?1?capsule?By Mouth?Daily?for 30?Days Thiamine (thiamine 100 mg oral tablet)?100?Milligram?1?tablet?By Mouth?Daily?for 30?Days umeclidinium (Incruse Ellipta 62.5 mcg/inh inhalation powder)?1?inhalation?62.5?Microgram?Inhalation?Every 24 hours?for 30?Days?doses should be taken at least 24 hours apart ? Quality Measures Tobacco Use Treatment:?Cessation Medication Prescribed on Discharge:??Tobacco Cessation Medication Prescribed ? Hospital Course ??Patient is a 37-year-old male with history of TBI, subdural hematoma, hypertension, dyslipidemia, alcohol abuse, cirrhosis, polysubstance abuse including alcohol, heroin and cocaine inhaler use, depression, presented with abdominal pain, nausea, vomiting and chest pain ?? 1.?? Abdominal pain, nausea, vomiting ??? Also reported what sounds like trace amounts of blood in the vomitus previously x1 episode ??? Acute pancreatitis was in the differential, however serum lipase is normal, and has had a recentCT abdomen/pelvis with IV and oral contrast on 06/30/2022 which was unremarkable ?treating ??supportively with IV fluids, IV antiemetics, IV PPI for possible EtOH induced gastritis, clear liquids and then advanced diet -Advanced diet??which he is tolerating ??? We will give PPI for 2 months ?? Chest pain ???no acute ischemic changes on EKG, and cardiac serial biomarkers are negative ? Suspect nonanginal chest pain, will hold off on any further inpatient noninvasive work-up ??? With ongoing cocaine abuse, will avoid selective beta-fernie use ?? -continue statin ? .?? Polysubstance abuse, with alcohol, heroin and inhaled cocaine Depression ? Counseled on cessation and discussed suboxone / methadone and acamprosate. ??? Consulted addiction medicine? they reevaluated patient twice ??and unfortunately he did not want to?? start MAT .? Addiction team had addiction coordinator to meet with him- for referrals totherapy and programs. - he does not want to go to inpatient programs. He was given a??list of resiources/ support/ recovery programs and a therapist appointment was set upo ? -??gave methadone taper here for withdrawal,?20mg on 07/20 and 15mg on 07/11 ? He has been on Suboxone in the past and been on acamprosate in the past ?? - I did discuss again with patient and he agreed with Acamprosate.?? So gave acamprosate on discharge.?? HAve asked him to continue discussion re: suboxone or methadone otuapteint with PCP and with therapist. He declined to start it here, with addiction team. ? Depression, passive SI???psychiatry was consulted.?? They recommended DC sitter no need for inpatient psychiatric stay ???restarted Paxil 20 Mg p.o. daily and Wellbutrin XL 150 Mg p.o. daily, - he does not have an outpatient psychiatrist - close f/u with PCP.?? --have discussed with him to get outpatient psychiatrist.?? And therapist has been set up by addiction coordinator ?? COPD exacerbation? very mild, improved iwth bronchodilator nebs - -did not need steroids ? Cirrhosis secondary to alcohol abuse CHF preserved ejection fraction versus ??? Clinically does not appear to be volume overloaded ? Is on Lasix and spironolactone, will hold for now, given poor oral intake,.?? Suspect he has been on diuretics for cirrhosis rather than d CHF - restarted lasix and spironolactone on discharge -continue umeclidinium and albuterol??inhalers outpatient ?? Thrombocytopenia ??? Secondary to liver cirrhosis ??? Monitor, no overt bleeding ? CODE STATUS???full resuscitation Objective Vital Signs?? Temperature: 97.3 DegF (07/21/22 07:17:00) Temperature Route: Oral (07/21/22 07:17:00) Pulse Rate: 76 bpm (07/21/22 07:17:00) Respiratory Rate: 18 br/min (07/21/22 09:48:00) Vented: No (07/20/22 11:40:00) Systolic Blood Pressure: 121 mm Hg (07/21/22 07:17:00) Diastolic Blood Pressure: 79 mm Hg (07/21/22 07:17:00) Blood pressure sites: Arm, right (07/21/22 07:17:00) Mean Arterial Pressure: 93 mm Hg (07/21/22 07:17:00) Pulse Pressure: 42 mm Hg (07/21/22 07:17:00) Oxygen Saturation: 96 % (07/21/22 07:17:00) Mode of Delivery (Oxygen): Room air (07/21/22 07:17:00) Early Warning Score: 8 (07/21/22 09:48:28) Temperature, Opiate Withdrawal: 97.6 DegF (07/20/22 11:43:00) Temperature Route, Opiate Withdrawal: Oral (07/20/22 11:43:00) Pulse Rate, Opiate Withdrawal: 87 bpm (07/20/22 11:43:00) Respiratory Rate, Opiate Withdrawal: 22 br/min (07/20/22 11:43:00) Systolic BP, Opiate Withdrawal:??159 mm Hg??High (07/20/22 11:43:00) ? . Physical Exam General: ??PERRLA, NAD, Moist mucus membranes Neck: No JVD, no carotid bruit CVS: Regular S1 S2, No M/R/G Resp: CTAB, no crepitations or wheezing Abdo: Soft, NT, ND, NABS GRAPHIC ART DESIGNER: AO x 3, No focal neurological deficits. Extremities: No edema, peripheral pulses palpable. Pending Results Add On Lab Order ordered on 07/19/2022 Hold Lavender Tube (BB) ordered on 07/18/2022 Patient Education Titles a - Provider Patient Instructions?? a - Provider Patient Instructions?? Alcoholism: Getting Help?? Alcohol Addiction?? Addiction Recovery?? Addiction: Getting Help?? Treating Drug Abuse and Addiction?? Follow-Up Appointments Added Follow Up ?Time Frame ?Comments Real Arambula?1 week Patient Instructions You have been referred to the following programs: ? You need to call daily/ to check for bed availability? [facility] (All Programs)? [phone]? Ask to speak with Eva to check for bed availability? Mandi Hong [address] [place] [phone], ? [facility] Therapy? Appointment:07/26/2022 at 2:00pm with Claritza Galo.? Your counselor will call you at the time of the appointment for an over the phone therapy session.? A referral has been made to [facility] on your behalf. ??A staff member will notify you after discharge to schedule a day/time for an intake.?? Post Discharge Care Code Status: ?? Full Resuscitation Discharge ?07/21/22 9:59:00 EST Discharge Prescriptions ?ePrescribed, ??07/21/22 9:59:00 EST Home Health Face to Face ^[facility] Results Discharge Labs BLOOD COUNT & DIFF WBC 3.0 k/mm3 (Low)?? 07/20/2022 05:46 RBC 4.08 m/mm3 (Low)?? 07/20/2022 05:46 Hgb 12.5 Gm/dL (Low)?? 07/20/2022 05:46 Hct 36.5 % (Low)?? 07/20/2022 05:46 MCV 89.5 femtoliters ()?? 07/20/2022 05:46 MCH 30.6 pg ()?? 07/20/2022 05:46 MCHC 34.2 g/dL ()?? 07/20/2022 05:46 Platelet Count 46 k/mm3 (Low)?? 07/20/2022 05:46 RDW-SD 48.1 femtoliters (High)?? 07/20/2022 05:46 MPV 10.9 femtoliters ()?? 07/20/2022 05:46 Nucleated RBC (Automated) 0.0 #/100 WBC'S ()?? 07/20/2022 05:46 Abs. NRBC 0.0 k/mm3 ()?? 07/20/2022 05:46 Abs. Neut 1.6 k/mm3 ()?? 07/20/2022 05:46 Abs. Lymph 1.1 k/mm3 ()?? 07/20/2022 05:46 Abs. [place] 0.2 k/mm3 (Low)?? 07/20/2022 05:46 Abs. Eo 0.1 k/mm3 ()?? 07/20/2022 05:46 Abs. Baso 0.0 k/mm3 ()?? 07/20/2022 05:46 Neut % 54.9 % ()?? 07/20/2022 05:46 Lymph % 35.8 % ()?? 07/20/2022 05:46 [place] % 7.0 % ()?? 07/20/2022 05:46 Eos % 1.7 % ()?? 07/20/2022 05:46 Baso % 0.3 % ()?? 07/20/2022 05:46 Imm Gran 0.3 % ()?? 07/20/2022 05:46 Abs. Imm Gran 0.0 k/mm3 ()?? 07/20/2022 05:46 ?? CARDIAC CK, Total 24 units/L ()?? 07/18/2022 14:40 Troponin T Quant <0.01 ng/mL ()?? 07/19/2022 05:44 Nt-Probnp 20 pg/mL ()?? 07/18/2022 14:40 ? CHEM GENERAL Sodium 140 mmol/L ()?? 07/20/2022 05:46 Potassium 3.3 mmol/L (Low)?? 07/20/2022 05:46 Chloride 103 mmol/L ()?? 07/20/2022 05:46 Bicarbonate Level 27 mmol/L ()?? 07/20/2022 05:46 Anion Gap 10 ()?? 07/20/2022 05:46 Glucose Level 152 mg/dL (High)?? 07/20/2022 05:46 BUN 9 mg/dL ()?? 07/20/2022 05:46 Creatinine-Blood 0.9 mg/dL ()?? 07/20/2022 05:46 Estimated GFR Creatinine 99 ML/MIN/1.73 M2 ()?? 07/20/2022 05:46 Calcium 8.8 mg/dL ()?? 07/20/2022 05:46 Calcium, Ionized pH Corrected 1.15 mmol/L ()?? 07/18/2022 14:40 Phosphorus 2.5 mg/dL ()?? 07/19/2022 05:44 Magnesium 2.1 mg/dL ()?? 07/19/2022 05:44 Protein, Total 5.7 Gm/dL (Low)?? 07/19/2022 05:44 Albumin 3.7 Gm/dL ()?? 07/19/2022 05:44 AG Ratio 1.6 ()?? 07/18/2022 14:40 Alkaline Phosphatase 107 units/L ()?? 07/19/2022 05:44 Lipase 31 units/L ()?? 07/18/2022 23:08 AST (SGOT) 25 units/L ()?? 07/19/2022 05:44 ALT (SGPT) 16 units/L ()?? 07/19/2022 05:44 Bilirubin, Total 1.1 mg/dL ()?? 07/19/2022 05:44 Bilirubin, Direct 0.3 mg/dL ()?? 07/19/2022 05:44 Bilirubin, Indirect 0.8 mg/dL (High)?? 07/19/2022 05:44 ? COAG D-Dimer 0.55 mg/L FEU ()?? 07/18/2022 14:40 ? TOXICOLOGY/TDM Ethanol, Serum or Plasma 204 mg/dL (Abnormal)?? 07/18/2022 14:40 ? VIROLOGY Influenza A PCR NEGATIVE ()?? 07/18/2022 14:40 Influenza B PCR NEGATIVE ()?? 07/18/2022 14:40 RSV PCR NEGATIVE ()?? 07/18/2022 14:40 COVID-19 PCR Specimen Source NASAL ()?? 07/19/2022 18:21 COVID-19 PCR Result NEGATIVE ()?? 07/19/2022 18:21 ? 35_ minutes spent on discharge Vika Wang RN: PERFORM Event Display: Patient Education/Instruction Authored Date: [id number] Inpatient Adult Discharge Instructions [address] [address] Name: DANIELLE VALENZUELA : 1965 Visit: 07/20/2022 08:58:00 Current Date: 07/21/2022 12:38 Account: [id number] Inpatient Adult Discharge Instructions We would like to thank you for allowing us to assist you with your healthcare needs. The following includes patient education materials and information regarding your injury/illness. Our entire staff strives to provide an excellent experience for our patients and their families. PLEASE ENSURE YOU FOLLOW-UP PER THE INSTRUCTIONS BELOW! ?? YOUR OPINION IS IMPORTANT TO US! Please complete the survey you may receive by mail or email. Your feedback will be used to make improvements to the healthcare experiences of our patients and their families. Surveys are administered by [employer] ?? If further treatment with your primary care physician or another doctor is recommended, it is important for you to keep the appointment. Call your primary care physician or return to the Emergency Department immediately if your condition worsens, fails to improve, or new symptoms develop. If you need to find a doctor, you can call [facility] for a referral at [phone] or toll free at [phone] or log in to [email or web address].. ?? You can view and manage your care through the patient portal or by using a health care annie of your choosing. [employer] is a website that allows you to securely view your medical information including your hospital discharge summary, office visit summaries, medications and follow-up visits. You can also request appointments, renew medications, and request access to your medical information using a health care annie of your choosing, or just ask a question. You can enroll at [email or web address] or register during your next office visit. You have been discharged from [facility], Patient Care Unit: S3. If you have any questions regarding these instructions after you leave, please call us and we will be happy to assist you. [facility] Your Care Team Attending Physician Bharati GÓMEZ, Mehran Corral Consulting Providers Kaveh GÓMEZ, John Dyson MD, Evan Stewart MD, [place] Discharging Providers Bharati GÓMEZ, Mehran Corral Reason for Admission Pt coming from home, pt withdrawing from ETOH and cocaine/heroine. Last drink today - 1 quart, heroine yesterday 3-4 bags .Pt c/o CP, and vomiting blood x few days. Your Diagnosis Alcohol intoxication Opioid use disorder, moderate, dependence Alcohol use disorder, moderate, dependence Cocaine use disorder Tobacco dependence Tests Performed Below is a partial list of the tests performed during your hospitalization. You may have had other tests and procedures not included in this list. Please discuss all test results with your provider. BUN Calcium Ionized Calcium Level CBC CBC w/ Differential Comprehensive Metabolic Panel COVID-19 (2019 Novel Coronavirus) PCR COVID-19, RSV, and Flu A/B, Rapid PCR CPK w/ Reflex CKMB Creatinine D Dimer Electrolytes Ethanol Level Glucose Level LFT's Lipase Lytes Magnesium Level Phosphorus Level ProBNP Troponin T Quant XR Chest Portable Primary Care Provider Real Arambula DO Advance Directive Health Care Proxy on File Yes - Health Care Proxy No qualifying data available. Discharge Vitals Temperature: 98 DegF Height: 165.2 cm Pulse Rate: 84 bpm Weight: 100.7 kg Respiratory Rate: 18 br/min Body Mass Index:??36.9 kg/m2??Critical Systolic Blood Pressure:??145 mm Hg??High Body surface area: 2.15 Diastolic Blood Pressure: 79 mm Hg ?? Oxygen Saturation: 99 % ?? Studies Pending All tests and labs ordered during this hospital stay have been completed unless listed below. Pleasediscuss all pending results with your provider listed above in these instructions. ?? Add On Lab Order Hold Lavender Tube (BB) What to do next Instructions From Your Doctor You have been referred to the following programs: ? You need to call daily/ to check for bed availability? [facility] (All Programs)? [phone]? Ask to speak with Eva to check for bed availability? Mandi Hong [address] [place] [phone], ? [facility] Therapy? Appointment:07/26/2022 at 2:00pm with Claritza Galo.? Your counselor will call you at the time of the appointment for an over the phone therapy session.? A referral has been made to [facility] on your behalf. ??A staff member will notify you after discharge to schedule a day/time for an intake.?? Discharge Orders Code Status:?? Full Resuscitation You Need to Schedule the Following Appointments Follow Up with??Real Arambula When??Within 1 week Where: [address] [place], [place] [address] [address] Business (1) Discharge Medications SHILPADANIELLE OLIVAS :1965 Visit Date:07/20/2022 Medications: Please continue your medications until treatment is completed or stopped by your provider. Medications not listed below should be discontinued. Discuss any questions related to medications with your provider. What How Much When Instructions Next Dose New Acamprosate (acamprosate 333 mg oral delayed release tablet) 2 tab(s) Oral 3 times a day Refills: 1 Pickup at [facility]/pharmacy #[id number] 07/21 PM New Cyclobenzaprine (cyclobenzaprine 10 mg oral tablet) 1 tab(s) Oral 3 times a day as needed for Other Refills: 1 pain/ ??spasms/ ??body aches ?? Pickup at [facility]/pharmacy #1130 as needed New Nicotine (nicotine 14 mg/ 24 hr transdermal film, extended release) 1 patch(es) Topically Daily Refills: 2 Pickup at [facility]/pharmacy #1130 07/22 AM New Pantoprazole (pantoprazole 40 mg oral delayed release tablet) 40 Milligram Oral Daily Refills: 2 Pickup at [facility]/pharmacy #1130 07/22 AM Changed BuPROpion (buPROPion 150 mg/ 24 hours (XL) oral tablet, extended release) 1 tab(s) Oral Every 24 hours Pickup at [facility]/pharmacy #[id number] 07/22 AM Unchanged Albuterol (albuterol CFC free 90 mcg/ inh inhalation aerosol) 2 puff(s) Inhalation 4 times a day as needed for as needed for wheezing as needed Unchanged Amlodipine (amLODIPine 5 mg oral tablet) 1 tab(s) Oral Daily 07/22 AM Unchanged Aripiprazole (ARIPiprazole 5 mg oral tablet) 1 tab(s) Oral Daily 07/22 AM Unchanged Atorvastatin (atorvastatin 40 mg oral tablet) 1 tab(s) Oral Daily at Bedtime 07/21 at bedtime Unchanged Finasteride (Proscar 5 mg oral tablet) 1 tab(s) Oral Daily 07/22 AM Unchanged Folic Acid (folic acid 1 mg oral tablet) 1 tab(s) Oral Daily Duration: 30 Days Pickup at [facility]/pharmacy #1130 07/22 AM Unchanged Furosemide (Lasix 40 mg oral tablet) 1 tab(s) Oral Daily 07/22 AM Unchanged HydrOXYzine (hydrOXYzine pamoate 25 mg oral capsule) 1 capsule Oral Every 6 hours as needed for Anxiety as needed Unchanged Paroxetine (PARoxetine 40 mg oral tablet) 1 tab(s) Oral Daily in the morning Duration: 30 Days Pickup at [facility]/pharmacy #[id number] 07/22 AM Unchanged Pyridoxine (pyridoxine 50 mg oral tablet) 1 tab(s) Oral Daily Duration: 30 Days 07/22 AM Unchanged Spironolactone (spironolactone 25 mg oral tablet) 1 tab(s) Oral Daily 07/22 AM Unchanged Tamsulosin (tamsulosin 0.4 mg oral capsule) 1 capsule Oral Daily Duration: 30 Days 11/17 AM Unchanged Thiamine (thiamine 100 mg oral tablet) 1 tab(s) Oral Daily Duration: 30 Days Pickup at [facility]/pharmacy #1130 07/22 AM Unchanged umeclidinium (Incruse Ellipta 62.5 mcg/ inh inhalation powder) 1 inhalation Inhalation Every 24 hours Duration: 30 Days doses should be taken at least 24 hours apart ?? 07/22 AM Pharmacy Information [facility]/pharmacy #[id number]: [address] [place], [place] [id number] [phone] ?? What How Much When Comments Stop Taking Omeprazole (omeprazole 40 mg oral enteric coated capsule) 1 capsule Oral Daily Duration: 30 Days Test Results Below is a partial list of the most recent Laboratory test results done prior to this discharge. You may have had other tests and procedures not included in this list. Please discuss all test results with your provider. BUN (07/20/2022) ???BUN - 9 mg/dL Calcium Ionized (07/18/2022) ???Calcium, Ionized pH Corrected - 1.15 mmol/L Calcium Level (07/20/2022) ???Calcium - 8.8 mg/dL CBC (07/19/2022) ???WBC - 3.7 k/mm3???RBC - 4.19 m/mm3???Hgb - 12.6 Gm/dL???Hct - 37.8 %???MCV - 90.2 femtoliters???MCH - 30.1 pg???MCHC - 33.3 g/dL???Platelet Count - 49 k/mm3???RDW-SD - 49.3 femtoliters???MPV - 11.0 femtoliters???Nucleated RBC (Automated) - 0.0 #/100 WBC'S???Abs. NRBC - 0.0 k/mm3 CBC w/ Differential (07/20/2022) ???WBC - 3.0 k/mm3???RBC - 4.08 m/mm3???Hgb - 12.5 Gm/dL???Hct - 36.5 %???MCV - 89.5 femtoliters???MCH - 30.6 pg???MCHC - 34.2 g/dL???Platelet Count - 46 k/mm3???RDW-SD - 48.1 femtoliters???MPV - 10.9 femtoliters???Nucleated RBC (Automated) - 0.0 #/100 WBC'S???Abs. NRBC - 0.0 k/mm3???Abs. Neut - 1.6 k/ mm3???Abs. Lymph - 1.1 k/mm3???Abs. [place] - 0.2 k/mm3???Abs. Eo - 0.1 k/mm3???Abs. Baso - 0.0 k/mm3???Neut % - 54.9 %???Lymph % - 35.8 %???[place] % - 7.0 %???Eos % - 1.7 %???Baso % - 0.3 %???Imm Gran - 0.3 %???Abs. Imm Gran - 0.0 k/mm3 Comprehensive Metabolic Panel (07/18/2022) ???Sodium - 141 mmol/L???Potassium - 2.9 mmol/L???Chloride - 103 mmol/L???Bicarbonate Level - 24 mmol/L???Anion Gap - 14???Glucose Level - 162 mg/dL???BUN - 5 mg/dL???Creatinine-Blood - 0.9 mg/dL???Estimated GFR Creatinine - 93 ML/MIN/1.73 M2???Calcium - 9.1 mg/dL???Protein, Total - 6.6 Gm/dL???Albumin - 4.1 Gm/dL???AG Ratio - 1.6???Alkaline Phosphatase - 121 units/L???AST (SGOT) - 30 units/L???ALT (SGPT) - 18 units/L???Bilirubin, Total - 0.8 mg/dL COVID-19 (2019 Novel Coronavirus) PCR (07/19/2022) ???COVID-19 PCR Specimen Source - NASAL???COVID-19 PCR Result - NEGATIVE COVID-19, RSV, and Flu A/B, Rapid PCR (07/18/2022) ???Influenza A PCR - NEGATIVE???Influenza B PCR - NEGATIVE???RSV PCR - NEGATIVE???COVID-19 PCR Specimen Source - NASAL???COVID-19 PCR Result - NEGATIVE CPK w/ Reflex CKMB (07/18/2022) ???CK, Total - 24 units/L Creatinine (07/20/2022) ???Creatinine-Blood - 0.9 mg/dL???Estimated GFR Creatinine - 99 ML/MIN/1.73 M2 D Dimer (07/18/2022) ???D-Dimer - 0.55 mg/L FEU Electrolytes (07/20/2022) ???Sodium - 140 mmol/L???Potassium - 3.3 mmol/L???Chloride - 103 mmol/L???Bicarbonate Level - 27 mmol/L???Anion Gap - 10 Ethanol Level (07/18/2022) ???Ethanol, Serum or Plasma - 204 mg/dL Glucose Level (07/20/2022) ???Glucose Level - 152 mg/dL LFT's (07/19/2022) ???Protein, Total - 5.7 Gm/dL???Albumin - 3.7 Gm/dL???Alkaline Phosphatase - 107 units/L???AST (SGOT) - 25 units/L???ALT (SGPT) - 16 units/L???Bilirubin, Total - 1.1 mg/dL???Bilirubin, Direct - 0.3 mg/dL???Bilirubin, Indirect - 0.8 mg/dL Lipase (07/18/2022) ???Lipase - 31 units/L Lytes (07/19/2022) ???Sodium - 142 mmol/L???Potassium - 4.1 mmol/L???Chloride - 107 mmol/L???Bicarbonate Level - 25 mmol/L???Anion Gap - 10 Magnesium Level (07/19/2022) ???Magnesium - 2.1 mg/dL Phosphorus Level (07/19/2022) ???Phosphorus - 2.5 mg/dL ProBNP (07/18/2022) ???Nt-Probnp - 20 pg/mL Troponin T Quant (07/19/2022) ? ?Troponin T Quant - <0.01 ng/mL Allergies (NKA means No Known Allergies) NKA Problems Active Problems??(21) Abdominal pain?? Alcohol withdrawal?? Alcoholic hepatitis?? Anxiety?? Benign prostatic hyperplasia?? Bilateral knee pain?? CHRONIC ISCHEMIC HEART DISEASE, UNSPECIFIED?? Cirrhosis?? Cocaine use?? Depression?? FamHx- cad?? Hyperlipidemia?? Hypertension?? Marijuana use?? Mild diastolic dysfunction?? Nicotine use disorder?? Obese class II?? Portal hypertensive gastropathy?? Prinzmetal angina?? SUBDURAL HEMORRHAGE?? Use of opiates for therapeutic purposes?? Education Materials Below is the list of Educational Leaflet Providered with your Discharge Instructions. a - Provider Patient Instructions?? a - Provider Patient Instructions?? Alcoholism: Getting Help?? Alcohol Addiction?? Addiction Recovery?? Addiction: Getting Help?? Treating Drug Abuse and Addiction?? Valuables and Belongings I fully understand and agree that [facility] accepts no responsibility for all my personal property including clothing, toilet articles, radios, jewelry, dentures, hearing aids, rings, money, or any other property that is in my possession or is brought to me after admission. I understand certain valuables may be placed in a hospital safe for a short period of time. I understand that the hospital is not liable for loss or damage due to accident, fire, or other natural occurrence while said property is in the safe. I accept full responsibility for any personal property that I keep with me, and will not hold the hospital responsible in case of loss or disappearance. I acknowledge that i have been encouraged to send valuables and belongings home. ?? Review of Valuable and Belonging List: With patient Date for Pt to Sign Valuables/Belongings: 07/21/22 11:23:00 ?? Other Discharge Information ? Pulmonary Rehab Status?? Pulmonary Rehab Discharge Status?? Respiratory Rate: 18 br/min ? Common Emergency Awareness Tips IS IT A STROKE? Act FAST and Check for these signs: FACE Does the face look uneven? ARM Does one arm drift down? SPEECH Does their speech sound strange? TIME Call at any sign of stroke ?? Heart Attack Signs Chest discomfort: Most heart attacks involve discomfort in the center of the chest and lasts more than a few minutes, or goes away and comes back. It can feel like uncomfortable pressure, squeezing, fullness or pain. Discomfort in upper body: Symptoms can include pain or discomfort in one or both arms, back, neck, jaw or stomach. Shortness of breath: With or without discomfort. Other signs: Breaking out in a cold sweat, nausea, or lightheaded. Remember, MINUTES DO MATTER. If you experience any of these heart attack warning signs, call to get immediate medical attention! ?? Smoking can increase your chances of developing chronic health problems and can cause harmful effects to other family members in your house. If you smoke, you are strongly encouraged to quit. Please call [facility] Link at [phone] or [phone] ([phone]) or log in to [email or web address] for referrals to smoking cessation programs. ?? The National Suicide Prevention Hotline is available 28/03 if you or someone you know needs to find areason to keep living. By calling 3-940-886-Playful Data (1911) you'll be connected to a skilled, trained counselor at a crisis center in your area. INPATIENT DISCHARGE INSTRUCTIONS SIGNATURE PAGE DANIELLE VALENZUELA Location:[facility] Registration Date and Time:07/20/2022 08:58 EST Primary Care Physician: Real Arambula DO, I DANIELLE VALENZUELA, have received the above patient education materials/instructions and have verbalized understanding. If ambulance or transport services are being used I further acknowledge being given a choice of service. ?? If you need to contact me, please call me at this number: . Patient/Parimutuel Clerk Name: Patient/Parimutuel Clerk Signature: Relationship to Patient: Witness Name/Signature: Date: Mehran Calabrese MD: PERFORM, SIGN, VERIFY Event Display: Patient Education Handout Authored Date: Mehran Calabrese MD: PERFORM Event Display: Patient Education Leaflets Authored Date: [id number] a - Provider Patient Instructions ?? 3 Additional Provider Instructions: ??Mehran Calabrese MD: PERFORM Event Display: Patient Education Leaflets Authored Date: [id number] a - Provider Patient Instructions ?? 3 Additional Provider Instructions You have been referred to the following programs: ? You need to call daily/ to check for bed availability? [facility] (All Programs)? [phone]? Ask to speak with Eva to check for bed availability? [facility] [address] [facility] [address], ? [facility]? Appointment:07/26/2022 at 2:00pm with Claritza Galo.? Your counselor will call you at the time of the appointment for an over the phone therapy session.? A referral has been made to [facility] on your behalf. ??A staff member will notify you after discharge to schedule a day/time for an intake.??: This information has been modified by your health care provider with permission from the publisher. ??Mehran Calabrese MD: PERFORM Event Display: Patient Education Leaflets Authored Date: [id number] Alcoholism: Getting Help ?? 80296 Alcoholism: Getting Help Facing a problem with alcohol can be hard. Once a person decides to get help, it can be found in many places. Below you will find resources that can give you more information. They can also help you find treatment. Primary care Talk with your primary healthcare provider. Sometimes your provider??can give you safe, effective medicine that can help you stop drinking. If your healthcare provider can't offer this medicine, they can refer you to a specialist. ?? Specialist care This kind of care can be inpatient. It means you spend a period of time in a facility. Or it can beoutpatient. This means you come and go. The facilities have medical support and can help a person detox. Most health insurance plans will cover at least some treatment. To find this kind of care, talk to your healthcare provider or a counselor. Or call a mental health clinic and ask for information. You can also look for providers online at the Substance Abuse and Mental Health Services Administration website at findtreatment.samhsa.gov . ?? Alcoholics Anonymous Alcoholics Anonymous (AA) helps members get sober and stay sober. They help you build healthy patterns of living. Everyone is welcome at an AA meeting. You don't have to identify yourself. Some peoplefind it easier to go to the first meeting with a friend. To find a meeting near you, go to the Alcoholics Anonymous website at www.aa.org. ?? The road to recovery Many people with alcoholism can give up alcohol for good. But change may not be easy or quick. Treatment is only a start. Relapses can be common. A relapse is not a sign of failure. Instead, it means treatment should continue. Once a person stops drinking, support is needed for them to stay sober. After-care programs and groups, such as AA, are good for this kind of support. ?? To learn more ??? National [place] on Alcohol Abuse and Alcoholism at www.niaaa.nih.gov/imitieci-pqkuzdz-ggakmz ??? Alcoholics Anonymous at www.aa.org ??? Substance Abuse and Mental Health Services Administration at findtreatment.samhsa.gov ??? SMART Recovery at www.Garmentory.org ?? Last Reviewed Date: 2021 ?? 5645-6342 The [employer]. All rights reserved. This information is not intended as a substitute for professional medical care. Always follow your healthcare professional's instructions. ?? Hospital Progress note Macy Buckley RN: PERFORM, MODIFY, SIGN, VERIFY Event Display: Progress Note Hospital Authored Date: Patient: DANIELLE VALENZUELA Age: 57 years Sex: Male : 1965 Associated Diagnoses: None Author: Macy Buckley RN Findings Problem Related to Alteration in Gastrointestinal : Alteration in Gastrointestinal Func/new 07/21/2022 9:48 EST Alteration in GI status Related to Other: abdomen pain, nausea Goals & Outcomes, Gastrointestinal Resolved problem, Goals/Outcomes met Interventions, Gastrointestinal Resolved problem, Interventions no longer in effect BH Goals/Interventions, Gastrointestinal Yes Gastrointestinal, Problem Start 07/20/2022 15:28 Reviewed plan with, Gastrointestinal Patient Patient Progression, Gastrointestinal Resolved problem Gastrointestinal, Problem Resolved 07/21/2022 9:48 . Nursing Data Vital Signs : VITAL SIGNS SECTION 07/21/2022 7:17 EST Early Warning Score 8.00 07/21/2022 7:17 EST Temperature 97.3 DegF Temperature Route Oral Pulse Rate 76 bpm Respiratory Rate 17 br/min Systolic Blood Pressure 121 mm Hg Diastolic Blood Pressure 79 mm Hg Blood pressure sites Arm, right Mean Arterial Pressure 93 mm Hg Pulse Pressure 42 mm Hg Oxygen Saturation 96 % Mode of Delivery (Oxygen) Room air . Evaluation Pt is a&ox4, vss, afebrile. No s/s ETOH withdrawl. Denies suicidal ideation at this time. 1:1 sitter d/c. Denies chest pain, palpitation, dizziness. reports feeling a little SOB . Appears to be inno acute distress. Respiration are even & steady. on room air. Denies GI discomfort & tolerating PO intake. c/o upper abd pain. voiding WNL. skin WNL. Appears comfortable resting in bed. Callbell & items within reach. Bed alarm is active. Safety precautions maintained and will continue to monitor......Sebastian CHIRINOS, Lea D: PERFORM, SIGN, VERIFY Event Display: Progress Note Hospital Authored Date: Patient: DANIELLE VALENZUELA Age: 57 years Sex: Male : 1965 Associated Diagnoses: None Author: Sebastian CHIRINOS, Lea Corral Findings Narrative/Incidental Patient transferred from ED via stretcher. [facility]. No constant balance truer with patient. W3 PCT sat with patient until constant balance truer arrived. Patient alertand orientated x3. Orientated to room, call bailey and staff. Patient given apple juice and broth. SeeBiophysical Assessment for further details..Bharati GÓMEZ, Mehran Corral: PERFORM Event Display: Progress Note Hospital Authored Date: Patient: ??DANIELLE VALENZUELA ? Age:??57 Years?Sex:??Male?:??1965?? Subjective has had epigastric abd. pain, no nausea or vomiting ?? Review of Systems ?? Constitutional- no fever, no chills HEENT- no ear pain, no tinnitus, no sore throat Respiratory- no shortness of breath?? CVS- no chest pain, no palpitations, no syncope Abdomen- no abdominal pain, nausea or vomiting Neuro- no headache, no paresthesias, no focal weakness - no dysuria, no hematuria Derm- no rash, no pruritis Objective Vital Signs?? Temperature: 99.7 DegF (07/20/22 15:02:00) Temperature Route: Oral (07/20/22 15:02:00) Pulse Rate: 61 bpm (07/20/22 15:02:00) Respiratory Rate: 17 br/min (07/20/22 15:02:00) Vented: No (07/20/22 11:40:00) Systolic Blood Pressure: 127 mm Hg (07/20/22 15:02:00) Diastolic Blood Pressure: 61 mm Hg (07/20/22 15:02:00) Blood pressure sites: Arm, left (07/20/22 15:02:00) Mean Arterial Pressure: 83 mm Hg (07/20/22 15:02:00) Pulse Pressure: 66 mm Hg (07/20/22 15:02:00) Oxygen Saturation: 98 % (07/20/22 14:27:00) Mode of Delivery (Oxygen): Room air (07/20/22 14:27:00) Early Warning Score: 6 (07/20/22 15:10:03) Temperature, Opiate Withdrawal: 97.6 DegF (07/20/22 11:43:00) Temperature Route, Opiate Withdrawal: Oral (07/20/22 11:43:00) Pulse Rate, Opiate Withdrawal: 87 bpm (07/20/22 11:43:00) Respiratory Rate, Opiate Withdrawal: 22 br/min (07/20/22 11:43:00) Systolic BP, Opiate Withdrawal:??159 mm Hg??High (07/20/22 11:43:00) Diastolic BP, Opiate Withdrawal:??96 mm Hg??High (07/19/22 19:56:00) ? Physical Exam General: ??PERRLA, NAD, Moist mucus membranes Neck: No JVD, no carotid bruit CVS: Regular S1 S2, No M/R/G Resp: CTAB, no crepitations or wheezing Abdo: Soft, NT, ND, NABS, no organomegaly, no masses GRAPHIC ART DESIGNER: AO x 3, No focal neurological deficits. Extremities: No edema, peripheral pulses palpable. _ Inpatient Medications Medications (29) Active SCHEDULED: (14) Albuterol/Ipratropium Inhalation Kitty 3mL (Duoneb Inhalation Solution) ??1 vials, BAND Nebulizer, 4 times a day Atorvastatin 40 mg Tablet (atorvastatin 40 mg oral tablet) ??40 mg, By Mouth, Daily at bedtime BuPROPion XL 150 mg Tablet (BuPROpion XL Tablet) ??150 mg, By Mouth, Daily Clonidine 0.1 mg Tablet (cloNIDine 0.1 mg oral tablet) ??0.1 mg, By Mouth, 2 times a day Folic Acid 1 mg Tablet (folic acid 1 mg oral tablet) ??1 mg, By Mouth, Daily Methadone 10 mg Tablet (methadone 10 mg oral tablet) ??20 mg, By Mouth, Once Multivitamin Tablet ??1 tablet, By Mouth, Daily NaCl 0.9% Flush 3ml (NaCL 0.9% Flush) ??3 mL, IV Push, Every 8 hours Nicotine 14 mg / 24 hour Patch (Nicotine Topical) ??14 mg, Topically, Daily Pantoprazole 40 mg EC Tablet (pantoprazole 40 mg oral delayed release tablet) ??40 mg, By Mouth, Daily Paroxetine 20 mg Tablet (Paxil 20 mg oral tablet) ??20 mg, By Mouth, Daily Pyridoxine 50 mg Tablet (pyridoxine 50 mg oral tablet) ??50 mg, By Mouth, Daily Remove Patch (Remove ??Patch) ??1 each, Topically, Daily Thiamine 100 mg Tablet (thiamine 100 mg oral tablet) ??100 mg, By Mouth, Daily CONTINUOUS: (0) PRN: (15) Acetaminophen 325 mg Tablet (Acetaminophen Tablet) ??650 mg, By Mouth, Every 4 hours Al hydroxide/Mg hydroxide/simethicone 200 mg-200 mg-20 mg/5 mL Susp UD (Maalox Plus Liquid) ??15 mL,By Mouth, 4 times a day Albuterol/Ipratropium Inhalation Kitty 3mL (Duoneb Inhalation Solution) ??1 vials, BAND Nebulizer, Every 4 hours Cyclobenzaprine 10 mg Tablet (Flexeril 10 mg oral tablet) ??10 mg, By Mouth, 3 times a day Guaifenesin 200mg/10mL Syrup UD (GuaiFENEsin Liquid) ??100 mg 5 mL, By Mouth, 4 times a day HydrOXYzine Pamoate 25mg Capsule (HydrOXYzine Pamoate Capsule) ??25 mg, By Mouth, Every 4 hours Lorazepam 1 mg Tablet (Ativan Tablet) ??1 mg, By Mouth, Every 2 hours Lorazepam 1 mg Tablet (Ativan Tablet) ??2 mg, By Mouth, Every 2 hours Lorazepam 1 mg Tablet (Ativan Tablet) ??2 mg, By Mouth, Every hour Melatonin 3 mg Tablet (Melatonin Tablet) ??3 mg, By Mouth, Daily at bedtime NaCl 0.9% Flush 3ml (NaCL 0.9% Flush) ??3 mL, IV Push, Every 8 hours Ondansetron 2mg/mL Inj (2mL Vial) (Zofran Inj) ??4 mg, IV Push, Once Polyethylene Glycol 17 Gm Powder (MiraLax Powder) ??17 Gm 1 pack/packet, By Mouth, Daily Senna 8.6 mg / Docusate 50 mg tablet (Docusate/Senna Tablet) ??1 tablet, By Mouth, 2 times a day Simethicone 80 mg Chewable Tablet (Simethicone Tablet) ??80 mg, Chew, 3 times a day ? Results Recent Labs BLOOD COUNT & DIFF WBC 3.0 k/mm3 (Low)?? 07/20/2022 05:46 RBC 4.08 m/mm3 (Low)?? 07/20/2022 05:46 Hgb 12.5 Gm/dL (Low)?? 07/20/2022 05:46 Hct 36.5 % (Low)?? 07/20/2022 05:46 MCV 89.5 femtoliters ()?? 07/20/2022 05:46 MCH 30.6 pg ()?? 07/20/2022 05:46 MCHC 34.2 g/dL ()?? 07/20/2022 05:46 Platelet Count 46 k/mm3 (Low)?? 07/20/2022 05:46 RDW-SD 48.1 femtoliters (High)?? 07/20/2022 05:46 MPV 10.9 femtoliters ()?? 07/20/2022 05:46 Nucleated RBC (Automated) 0.0 #/100 WBC'S ()?? 07/20/2022 05:46 Abs. NRBC 0.0 k/mm3 ()?? 07/20/2022 05:46 Abs. Neut 1.6 k/mm3 ()?? 07/20/2022 05:46 Abs. Lymph 1.1 k/mm3 ()?? 07/20/2022 05:46 Abs. [place] 0.2 k/mm3 (Low)?? 07/20/2022 05:46 Abs. Eo 0.1 k/mm3 ()?? 07/20/2022 05:46 Abs. Baso 0.0 k/mm3 ()?? 07/20/2022 05:46 Neut % 54.9 % ()?? 07/20/2022 05:46 Lymph % 35.8 % ()?? 07/20/2022 05:46 [place] % 7.0 % ()?? 07/20/2022 05:46 Eos % 1.7 % ()?? 07/20/2022 05:46 Baso % 0.3 % ()?? 07/20/2022 05:46 Imm Gran 0.3 % ()?? 07/20/2022 05:46 Abs. Imm Gran 0.0 k/mm3 ()?? 07/20/2022 05:46 ?? CARDIAC Troponin T Quant <0.01 ng/mL ()?? 07/19/2022 05:44 ?? CHEM GENERAL Sodium 140 mmol/L ()?? 07/20/2022 05:46 Potassium 3.3 mmol/L (Low)?? 07/20/2022 05:46 Chloride 103 mmol/L ()?? 07/20/2022 05:46 Bicarbonate Level 27 mmol/L ()?? 07/20/2022 05:46 Anion Gap 10 ()?? 07/20/2022 05:46 Glucose Level 152 mg/dL (High)?? 07/20/2022 05:46 BUN 9 mg/dL ()?? 07/20/2022 05:46 Creatinine-Blood 0.9 mg/dL ()?? 07/20/2022 05:46 Estimated GFR Creatinine 99 ML/MIN/1.73 M2 ()?? 07/20/2022 05:46 Calcium 8.8 mg/dL ()?? 07/20/2022 05:46 Phosphorus 2.5 mg/dL ()?? 07/19/2022 05:44 Magnesium 2.1 mg/dL ()?? 07/19/2022 05:44 Protein, Total 5.7 Gm/dL (Low)?? 07/19/2022 05:44 Albumin 3.7 Gm/dL ()?? 07/19/2022 05:44 Alkaline Phosphatase 107 units/L ()?? 07/19/2022 05:44 AST (SGOT) 25 units/L ()?? 07/19/2022 05:44 ALT (SGPT) 16 units/L ()?? 07/19/2022 05:44 Bilirubin, Total 1.1 mg/dL ()?? 07/19/2022 05:44 Bilirubin, Direct 0.3 mg/dL ()?? 07/19/2022 05:44 Bilirubin, Indirect 0.8 mg/dL (High)?? 07/19/2022 05:44 ?? VIROLOGY COVID-19 PCR Specimen Source NASAL ()?? 07/19/2022 18:21 COVID-19 PCR Result NEGATIVE ()?? 07/19/2022 18:21 ? Assessment/Plan ??Patient is a 37-year-old male with history of TBI, subdural hematoma, hypertension, dyslipidemia, alcohol abuse, cirrhosis, polysubstance abuse including alcohol, heroin and cocaine inhaler use, depression, presented with abdominal pain, nausea, vomiting and chest pain ?? 1.?? Abdominal pain, nausea, vomiting ??? Also reported what sounds like trace amounts of blood in the vomitus previously x1 episode ??? Acute pancreatitis was in the differential, however serum lipase is normal, and has had a recentCT abdomen/pelvis with IV and oral contrast on 06/30/2022 which was unremarkable ?treating ??supportively with IV fluids, IV antiemetics, IV PPI for possible EtOH induced gastritis, clear liquids and will advance as tolerated - will advance diet today and ?? Chest pain CAD with 1 stent as per patient ?no acute ischemic changes on EKG, and cardiac serial biomarkers are negative ? Suspect nonanginal chest pain, will hold off on any further inpatient noninvasive work-up ??? With ongoing cocaine abuse, will avoid selective beta-fernie use ?? .?? Polysubstance abuse, with alcohol, heroin and inhaled cocaine Depression ? Counseled on cessation and discussed suboxone / methadone and acamprosate. ??? Consulted addiction medicine? they reevaluated patient and unfortunately he did not want to?? start MAT .? Addiction team getting coordinator to meet with him today- for referrals to therapyand programs. - he does not want to go to inpatient programs ?? - will give methadone taper here for withdrawal,? will give methadone 20mg today,and decrease by 5mg daily ? He has been on Suboxone in the past and been on acamprosate in the past ?? Depression, passive SI???psychiatry was consulted.?? They recommended DC sitter no need for inpatient psychiatric stay ???restarted Paxil 20 Mg p.o. daily and Wellbutrin XL 150 Mg p.o. daily, - he does not have an outpatient psychiatrist - close f/u with PCP - have discussed wth him to get outpatient psychiatrist and therapis ? COPD exacerbation ??? We will give as needed bronchodilators, steroids at this time ?? Cirrhosis secondary to alcohol abuse CHF preserved ejection fraction versus ??? Clinically does not appear to be volume overloaded ? I on Lasix and spironolactone, will hold for now, given poor oral intake,.?? Suspect he has beenon diuretics for cirrhosis rather than d CHF ?? Thrombocytopenia ??? Secondary to liver cirrhosis ??? Monitor, no overt bleeding ? CODE STATUS???full resuscitation DVT prophylaxis???pneumatic compression boots ?? OMN- started methadone taper, addiction help desk team leader to meet with patient, monitor for opiate withdrawal, hopefully dc in 24 hours ?? Portable XR Chest Views BHSPowerscribe , CIS S: TRANSCRIBE Nivia Fragoso MD: VERIFY Event Display: Result: Authored Date: [id number] Chest Portable Hx of Present Illness: Pt coming from home, pt withdrawing from ETOH and cocaine heroine. Last drinktoday - 1 quart, heroine yesterday 3-4 bags .Pt c o CP, and vomiting blood x few days.; Reason: Shortness of Breath; Clinical Question(s): CHF COMPARISON: 06/30/2022. FINDINGS: LINES AND TUBES: None. LUNGS AND PLEURA: Clear lungs. Normal pulmonary vascularity. No pleural effusion. No pneumothorax. HEART, MEDIASTINUM AND ANIA: Heart is normal in size. BONES AND SOFT TISSUES: No acute abnormality. IMPRESSION: No acute abnormality. WSN: [id number] Ordering Physician: Talib Amin Dictated By: Nivia Fragoso MD Dictated Date/Time: 07/18/22 3:24 pm Reviewed By: Nivia Fragoso MD Signed By: iNvia Fragoso MD Signed Date/Time: 07/18/22 3:24 pm Transcribed By: KELLY Transcribed Date/Time: 07/18/22 3:24 pm Patient Care team information Care Team PersonnelName: Kassy Manuel RN Position: S RN Member Role: Primary Care Nurse Name: Milton Sebastian RN Position: S RN Member Role: Primary Care Nurse Name: Carissa Cueva RN Position: [facility] RN Member Role: Primary Care Nurse Name: Savanna Johnson RN Position: [facility] RN Member Role: Primary Care Nurse Name: Billie Davis NP Position: [facility] Associate Professional Member Role: Primary Care Nurse Address: Address: [address] [place] [address]- [place] Name: Cristina Reis Position: [facility] Outreach Member Role: Lifetime Consulting Physician Name: Real Arambula DO Position: Reference Physician Member Role: PCP Address: Address: [address] [place] [address]- [place] Name: Eliane Liao RN Position: [facility] RN Member Role: Primary Care Nurse Name: Denise Velez RN Position: [facility] RN Supv Member Role: Primary Care Nurse Name: Estrella Lacy RN Position: [facility] RN Member Role: Primary Care Nurse Name: Janneth Wu RN Position: [facility] RN Member Role: Primary Care Nurse Name: Katie Mir Position: [facility] RN Member Role: Primary Care Nurse Name: Aiden Tripp RN Position: [facility] ED RN W/OE and Tasks Member Role: Primary Care Nurse Name: Louann Gonsales RN Position: [facility] RN Member Role: Primary Care Nurse Name: Milton Adan RN Position: [facility] RN Member Role: Primary Care Nurse Name: Sabrina Bennett Position: [facility] RN Member Role: Primary Care Nurse Name: Louise Yang RN Position: [facility] RN Member Role: Primary Care Nurse Name: Zoie Glynn RN Position: [facility] Special Education Paraprofessional Member Role: Primary Care Nurse Name: Lucita Sheffield RN Position: [facility] RN Member Role: Primary Care Nurse Name: Apryl Armando RN Position: [facility] RN Member Role: Primary Care Nurse Name: Sobeida Kincaid RN Position: [facility] RN Member Role: Primary Care Nurse Name: Mustapha Rodarte RN Position: [facility] RN Member Role: Primary Care Nurse Name: Satya Harper RN Position: [facility] RN Member Role: Primary Care Nurse Address: Address: [address] [place] [phone]- [place] Name: Jean Marie Delarosa RN Position: [facility] RN Supv Member Role: Primary Care Nurse Name: Jammie Rios RN Position: [facility] OB RN Member Role: Primary Care Nurse Name: Jaci De RN Position: [facility] OB RN Member Role: Primary Care Nurse Name: Erin Lombardo RN Position: [facility] RN Member Role: Primary Care Nurse Name: Alexia Wells RN Position: [facility] RN Member Role: Primary Care Nurse Name: Babs Parmar RN Position: [facility] RN Member Role: Primary Care Nurse Name: Trena Quintanilla RN Position: [facility] RN Member Role: Primary Care Nurse Name: Loren Morrison RN Position: [facility] Onco RN Member Role: Primary Care Nurse Name: Tabatha Shah RN Position: [facility] Special Education Paraprofessional Member Role: Primary Care Nurse Name: Vicente Higuera RN Position: [facility] SN RN Member Role: Primary Care Nurse Name: Macy Buckley RN Position: [facility] RN Member Role: Primary Care Nurse Name: ElzbietaEN[facility]Lonny Attending Position: [facility] ED Medicine MD Name: Yas Osuna Position: [facility] ED TA [facility] Name: Katie Lange RN Position: [facility] ED RN W/OE and Tasks Member Role: Patient Care Provider Name: Berta Velasquez RN Position: [facility] ED RN W/OE and Tasks Member Role: Patient Care Provider Care Team Related PersonsName: KOMAL CHEUNG Address: [place] [address] Name: ALEXIA NICHOLSON Address: home [address] [place] [address] Name: HASEEB VALENZUELA Address: [place] [address]
--- OUTSIDE RECORDS SUMMARY | 2022-09-29 13:35 | XMS_ITS | Continuity of Care Document ---
:1965 Author Organization [facility] Address [address] [place] [address]- Care Team Providers Name Role Phone Real Arambula DO Primary Care Physician Encounter [facility] Date(s): 07/27/22 - 07/27/[address] [address]- Discharge Disposition: A-D/C Home Attending Physician: Andrew [...] virus vaccine, inactivated 10/02/11 Given SARS-CoV-2 mRNA (kfkuogl-gjvj-ggglt) vax 03/31/22 Recorde d SARS-CoV-2 mRNA (iyvujqj-ixgb-mteel) vax 12/24/21 Recorde d SARS-CoV-2 (COVID-19) mRNA BNT-162b2 vac 11/04/20 Recorde d SARS-CoV-2 (COVID-19) mRNA BNT-162b2 vac 10/14/20 Recorde d tetanus/diphtheria/pertussis, acel(Tdap) 12/21/18 Recorde d tetanus/diphtheria/pertussis, acel(Tdap) 11/04/18 Recorde d tetanus/diphtheria/pertussis, acel(Tdap) 05/14/13 Recorde d pneumococcal 23-valent vaccine 10/03/14 Recorded [...] Refills, Maintenance, 07/21/22 9:35:00 EST, EC Tablet, [facility]/pharmacy #[id number], Partial fill upon patient request if the prescription is for a schedule II opioid drug., 165.2, cm, 07/21/22 7:17:00... Start Date: 07/21/22 Status: Orderedalbuterol CFC free 90 mcg/inh inhalation aerosol 2, puffs, Inhalation, 4 times a day, PRN, # 18 Gm, Refills 0, Tot. Refills 0, Maintenance, 01/04/20 10:28:00 EDT, Aerosol, Route to Pharmacy Electronically, [id number], [facility] 3, 170, cm, 01/04/20 4:32:00 EDT,... [...] tablet, 3 Refills, Maintenance, 07/21/22 16:49:00EST, Tablet, [facility]/pharmacy #[id number], Partial fill upon patient request if the prescription is for a schedule II opioid drug., 165.2, cm, 07/21/22 11:23:00... Start Date: 07/21/22 Status: OrderedbuPROPion 150 mg/24 hours (XL) oral tablet, extended release 1 tablet = 150 mg, By Mouth, Every 24 hours, # 30 tablet, 3 Refills, Maintenance, 07/21/22 9:37:00 EST, XL Tablet, [facility]/pharmacy #[id number], Partial fill upon patient request if the prescription is for a schedule II opioid drug., 1 tablet By Mouth Every 24... Start Date: 07/21/22 Status: Orderedcyclobenzaprine 10 mg oral tablet 10 mg, 1, tablet, By Mouth, 3 times a day, PRN, pain/ spasms/ body aches, # 90 tablet, Refills 1, Tot. Refills 1, Maintenance, Other, 07/21/22 9:35:00 EST, [id number] Partial fill upon patient request if the... Start Date: 07/21/22 Status: Orderedfolic acid 1 mg oral tablet 1 mg, 1, tablet, By Mouth, Daily, # 30 tablet, Refills 5, Tot. Refills 5, Maintenance, 07/21/22 9:34:00 EST, Route to Pharmacy Electronically, [facility]/pharmacy #[id number], 165.2, cm, 07/21/22 7:17:00 EST, Height, [...] 0 Refills, Maintenance, 01/04/20 10:50:00 EDT, Powder, [facility] 3, 170, cm, 01/04/20 4:32:00 EDT, Height, 100, kg, 01/03/20 9:3... Start Date: 01/04/20 Stop Date: 02/03/20 Status: OrderedLasix 40 mg oral tablet 40 mg, 1, tablet, By Mouth, Daily, Refills 0, Maintenance, 07/24/20 9:13:00 EST, Partial fill upon patient request Start Date: 07/24/20 Status: Orderednicotine 14 mg/24 hr transdermal film, extended release 1 patch, Topically, Daily, # 30 patch, 2 Refills, Maintenance, 07/21/22 9:34:00 EST, Patch, [facility]/pharmacy #[id number], Partial fill upon patient request if [...] 07/21/22 9:33:00 EST, [id number], 165.2, cm, 07/21/22 7:17:00 EST, Height, [...] 07/02/22 12:21:00 EDT, [facility], 178, cm, 11/24/21 14:30:00 EDT, Height, [...] 07/21/22 9:34:00 EST, Route to Pharmacy Electronically, [facility]/pharmacy #[id number], 165.2, cm, 07/21/22 7:17:00 EST, Height, [...] Exam Date Time Procedure Performing Provider Status 07/27/22 9:18 AM Ankle Min 3 Views Right Tiesha Chang; Auth (Verified) Notes:(Ankle Min 3 Views Right) Reason For Exam: PainRESULT: Ankle Min 3 Views Right Ankle Min 3 Views Right INDICATION: Right ankle pain. COMPARISON: 05/02/2021. FINDINGS: Postoperative changes in the distal fibula and medial malleolus, similar to prior. No evidence of hardware/screw malfunction or loosening. No new fracture or dislocation. Intact ankle mortise and talar dome. Normal soft tissues. IMPRESSION: No evidence of acute osseous abnormality. I have personally reviewed the images and I agree with this report. WSN: [id number] Ordering Physician: Juan Frost Dictated By: Lon Huff MD Dictated Date/Time: 07/27/22 10:06 a Reviewed By: Erin Villalobos MD Signed By: Erin Villalobos MD Signed Date/Time: 07/27/22 10:11 am Transcribed By: KELLY Transcribed Date/Time: 07/27/22 10:06 am Vital Signs Most recent to oldest [Reference Range]: 1 2 Oxygen Saturation [94-100 %] 95 % 97 % (07/27/22 4:06 AM) (07/27/22 12:56 AM) Pulse Rate [55-90 bpm] 103 bpm 115 bpm *H* *H* (07/27/22 4:06 AM) (07/27/22 12:56 AM) Blood Pressure [90-138/55-84 mm Hg] 173/95 mm Hg 164/ 121 mm Hg *H* *H* (07/27/22 4:06 AM) (07/27/22 12:56 AM) Respiratory Rate [16-30 br/min] 18 br/min 18 br/mi n (07/27/22 4:06 AM) (07/27/22 12:56 AM) Temperature [96.8-100.4 DegF] 98.1 DegF 97.8 DegF (07/27/22 4:06 AM) (07/27/22 12:56 AM) Mode of Delivery (Oxygen) Room air Room air (07/27/22 4:06 AM) (07/27/22 12:56 AM) Blood pressure sites Arm, right Arm, left (07/27/22 4:06 AM) (07/27/22 12:56 AM) Temperature Route Oral Oral (07/27/22 4:06 AM) (07/27/22 12:56 AM) Social History Social History Type Response Smoking Status Current every day smoker; Ty pe: Cigarettes; Number of years: 40; entered on: 05/09/18 Sex Male EKG study Event Display: ECG 12-Lead Authored Date: Please click on pdf link to open report Event Display: ECG 12-Lead Authored Date: Ventricular Rate: 105 BPM Atrial Rate: 105 BPM P-R Interval: 180 ms QRS Duration: 84 ms Q-T Interval: 362 ms QTC Calculation(Bazett): 478 ms P Conover: 52 degrees R Conover: 22 degrees T Conover: 12 degrees Sinus tachycardia Nonspecific ST and T wave abnormality Abnormal ECG Confirmed by RADHA HOUGH ([id number]) on 07/27/2022 12:11:18 PM [place]: RADHA HOUGH Kevin: PERFORM Event Display: Patient Education Leaflets Authored Date: RICE ?? [id number] RICE Rest an injury, elevate it, and use ice and compression as directed. RICE stands for rest, ice, compression, and elevation. These can limit pain and swelling after an injury. RICE may be recommended to help treat breaks (fractures), sprains, strains, and bruises or bumps.?? Home care Here are??the details of RICE: ??? Rest. Limit the use of the injured body part. This helps preventfurther damage to the body part and gives it time to heal. In some cases, you may need a sling, brace, splint, or cast to help keep the body part still until it has healed. ??? Ice. Applying ice right after an injury helps relieve pain and swelling. To make an ice pack, put ice cubes in a plastic bag that seals at the top. Wrap the bag in a clean, thin towel or cloth.??Then place it over the injured area. Do this for 15 to 20 minutes every??2 to 3??hours. Continue for the next 1 to 2 days or until your symptoms improve. Never put ice directly on your skin.??Don't ice an area longer than 20 minutes at a time. ??? Compression. Putting pressure on an injury helps reduce swelling and provides support.Wrap the injured area firmly with an elastic bandage or??wrap. Make sure not to wrap the bandage tootightly or you will cut off blood flow to the injured area. If your bandage loosens, rewrap it. ??? E levation. Keeping an injury raised or elevated??above the level of your heart reduces swelling, pain, and throbbing. For instance, if you have a broken leg, it may help to rest your leg on several pillows when sitting or lying down. Try to keep the injured area elevated as often as possible. ?? Follow-up care Follow up with your healthcare provider as advised. ?? When to seek medical advice Call your healthcare provider right away??if any of these occur: ??? Fever of 100.4??F (38??C) or higher, or as directed by your healthcare provider ??? Chills ??? Increased pain or swelling in the injured body part ??? Injured body part becomes cold, blue, numb, or tingly ??? Signs of infection. These include warmth in the skin, redness, drainage, or bad smell coming from the injured body part. ???New symptoms ?? Last Reviewed Date: 2022 ?? 4716-0441 The [employer]. All rights reserved. This information is not intended as a substitute for professional medical care. Always follow your healthcare professional's instructions. ?? XR Ankle - right GE 3 Views BHSPowerscribe , CIS S: TRANSCRIBE Erin Villalobos MD: VERIFY Lon Huff MD: SIGN Event Display: Result: Authored Date: [id number] Ankle Min 3 Views Right INDICATION: Right ankle pain. COMPARISON: 05/02/2021. FINDINGS: Postoperative changes in the distal fibula and medial malleolus, similar to prior. No evidence of hardware/screw malfunction or loosening. No new fracture or dislocation. Intact ankle mortise and talar dome. Normal soft tissues. IMPRESSION: No evidence of acute osseous abnormality. I have personally reviewed the images and I agree with this report. WSN: [id number] Ordering Physician: Juan Frost Dictated By: Lon Huff MD Dictated Date/Time: 07/27/22 10:06 a Reviewed By: Erin Villalobos MD Signed By: Erin Villalobos MD Signed Date/Time: 07/27/22 10:11 am Transcribed By: KELLY Transcribed Date/Time: 07/27/22 10:06 am Patient Care team information Care Team PersonnelName: Kassy Manuel RN Position: [facility] RN Member Role: Primary Care Nurse Name: Milton Sebastian RN Position: [facility] RN Member Role: Primary Care Nurse Name: Carissa Cueva RN Position: [facility] RN Member Role: Primary Care Nurse Name: Savanna Johnson RN Position: [facility] RN Member Role: Primary Care Nurse Name: Billie Davis NP Position: [facility] Associate Professional Member Role: Primary Care Nurse Address: Address: [address] [place] [phone]- Name: Cristina Reis Position: [facility] Outreach Member Role: Lifetime Consulting Physician Name: Real Arambula DO Position: Reference Physician Member Role: PCP Address: Address: [address] [place] [address]- Name: Eliane Liao RN Position: [facility] RN Member Role: Primary Care Nurse Name: Denise Velez RN Position: [facility] RN Supv Member Role: Primary Care Nurse Name: Estrella Lacy RN Position: [facility] RN Member Role: Primary Care Nurse Name: Janneth Wu RN Position: [facility] RN Member Role: Primary Care Nurse Name: Katie Mir Position: [facility] RN Member Role: Primary Care Nurse Name: Aiden Tripp RN Position: [facility] ED RN W/OE and Tasks Member Role: Primary Care Nurse Name: Louann Gonsales RN Position: [facility] RN Member Role: Primary Care Nurse Name: Milton Adan RN Position: [facility] RN Member Role: Primary Care Nurse Name: Sabrina Bennett Position: [facility] RN Member Role: Primary Care Nurse Name: Louise Yang RN Position: [facility] RN Member Role: Primary Care Nurse Name: Zoie Glynn RN Position: [facility] Atmospheric Physicist Member Role: Primary Care Nurse Name: Lucita Sheffield RN Position: [facility] RN Member Role: Primary Care Nurse Name: Apryl Armando RN Position: [facility] RN Member Role: Primary Care Nurse Name: Sobeida Kincaid RN Position: [facility] RN Member Role: Primary Care Nurse Name: Mustapha Rodarte RN Position: [facility] RN Member Role: Primary Care Nurse Name: Satya Harper RN Position: [facility] RN Member Role: Primary Care Nurse Address: Address: [address] [place] [phone]- [place] Name: Jean Marie Delarosa RN Position: [facility] RN Supv Member Role: Primary Care Nurse Name: Jammie Rios RN Position: [facility] OB RN Member Role: Primary Care Nurse Name: Jaci De RN Position: [facility] OB RN Member Role: Primary Care Nurse Name: Erin Lombardo RN Position: [facility] RN Member Role: Primary Care Nurse Name: Alexia Wells RN Position: [facility] RN Member Role: Primary Care Nurse Name: Babs Parmar RN Position: [facility] RN Member Role: Primary Care Nurse Name: Trena Quintanilla RN Position: [facility] RN Member Role: Primary Care Nurse Name: Loren Morrison RN Position: [facility] Onco RN Member Role: Primary Care Nurse Name: Tabatha Shah RN Position: [facility] Atmospheric Physicist Member Role: Primary Care Nurse Name: Vicente Higuera RN Position: [facility] SN RN Member Role: Primary Care Nurse Name: Macy Buckley RN Position: [facility] RN Member Role: Primary Care Nurse Name: Juan Garcia Position: [facility] Associate Professional Member Role: ED Physician Water Restoration Technician Address: Address: [address] [place] [phone]- Name: Erin Beach RN Position: [facility] ED RN W/OE and Tasks Member Role: Patient Care Provider Name: Andrew Rodriguez MD Position: [facility] ED Medicine MD Member Role: Admitting Physician Address: Address: [address] [place] [address] [place] [address]- [place] Care Team Related PersonsName: KOMAL CHEUNG Address: [place] [address] Name: ALEXIA NICHOLSON Address: home [address] [place] [address] Name: HASEEB MASSEY Address: [place] [address]
--- OUTSIDE RECORDS SUMMARY | 2022-09-29 13:35 | XMS_ITS | Continuity of Care Document ---
:1965 Author Organization [facility] Address [address] [place] [id number]- Care Team Providers Name Role Phone Real Arambula DO Primary Care Physician Encounter [facility] [id number] Date(s): 05/02/21 - 05/02/[address] [address]- Encounter Diagnosis Fall (Final) - 05/02/21 Discharge Disposition: A-D/C Home Attending Physician: Maricruz Arias DO Admitting Physician: Maricruz Arias DO Referring Physician: Not on Staff, Referring [...] 10:28:00 EDT, Aerosol, Route to Pharmacy Electronically, [id number], [facility], 170, cm, 01/04/20 4:32:00 EDT,... [...] 07/24/20 9:35:00 EST, Route to Pharmacy Electronically, [facility], Partial fill upon patient request, 177, [...] 0 Refills, Maintenance, 01/04/20 10:50:00 EDT, Powder, [facility], 170, cm, 01/04/20 4:32:00 [...] request Start Date: 07/24/20 Status: OrderedMorPHINE Inj 4 mg, Injection, IV Push Slowly, Every 5 minutes for 3 doses/times, PRN for Pain , Moderate, and SBPgreater than 100, Routine, 05/02/21 10:19:00 EDT, Stop date 05/04/21 0:00:00 EDT Start Date: 05/02/21 Stop Date: 05/03/21 Status: Discontinuednystatin 863146 u/ml oral suspension 6 mL = 600,000 [...] prostatic Active hyperplasia(Confirmed) CHRONIC ISCHEMIC HEART DISEASE, 2008 Active UNSPECIFIED(Confirmed) Cirrhosis(Confirmed) Active Cocaine use(Confirmed) Active Depression(Confirmed) Active Mild diastolic dysfunction(Confirmed) Active Marijuana use(Confirmed) Active Use of opiates for therapeutic Active purposes(Confirmed) Hyperlipidemia(Confirmed) Active Hypertension(Confirmed) Active Bilateral knee pain(Confirmed) Active Nicotine use disorder(Confirmed) Active 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 Hx of Present Illness: Pt states that he fell 5-6 steps going down his stairs at home.; COMPARISON: 01/25/2018. FINDINGS: AP and lateral views demonstrate left total knee arthroplasty changes with metallic distal femoral and proximal tibial components. There is also been resurfacing of the patella with a radiolucent spacer. There is no evidence of acute or healing fracture, dislocation or focal osseous lesion. No evidence of joint effusion. IMPRESSION: Postoperative changes, no acute osseous process. WSN: [id number] Ordering Physician: Kwabena Munoz Dictated By: James Wilburn MD Dictated Date/Time: 05/02/21 12:23 p Reviewed By: James Wilburn MD Signed By: James Wilburn MD Signed Date/Time: 05/02/21 12:23 pm Transcribed By: KELLY Transcribed Date/Time: 05/02/21 12:21 pm Exam Date Time Procedure Performing Provider Status 05/02/21 10:24 AM Ankle Min 3 Views Right Rohith Jama h (Verified) Notes:(Ankle Min 3 Views Right) Reason For Exam: TraumaRESULT: Ankle Min 3 Views Right Right ankle 3 views dated May 02, 2021. Comparison films are from March 09, 2011. HISTORY: Pain. FINDINGS: This examination shows postoperative changes in the distal fibula and medial malleolus. Noacute fracture or dislocation is identified. There is some soft tissue swelling laterally. The anklemortise is intact on this nonstressed study. No joint effusion is seen. IMPRESSION: Soft tissue swelling. No evidence of acute osseous abnormality. Postoperative changes. Examination 71435. Thank you for allowing me to participate in the care of this patient. WSN: [id number] Ordering Physician: Kwabena Munoz Dictated By: Ted Serrano MD Dictated Date/Time: 05/02/21 10:55 a Reviewed By: Ted Serrano MD Signed By: Ted Serrano MD Signed Date/Time: 05/02/21 10:55 am Transcribed By: KELLY Transcribed Date/Time: 05/02/21 10:55 am Exam Date Time Procedure Performing Provider Status 05/02/21 10:24 AM Tibia/Fibula 2 Views Right Dolly Jama; Parish (Verified) Notes:(Tibia/Fibula 2 Views Right) Reason For Exam: TraumaRESULT: Tibia/Fibula 2 Views Right Right lower leg 2 views dated May 02, 2021. Comparison films are from July 23, 2020 and March 09, 2011. HISTORY: Pain. FINDINGS: Examination shows a total knee arthroplasty. Alignment is anatomic. There are postoperative changes in the medial malleolus and distal fibula. No acute fracture or dislocation is identified. No radiopaque foreign body or soft tissue gas is noted outside of the surgical changes. IMPRESSION: No evidence of acute osseous abnormality. Examination [id number]. Thank you for allowing me to participate in the care of this patient. WSN: [id number] Ordering Physician: Kwabena Munoz Dictated By: Ted Serrano MD Dictated Date/Time: 05/02/21 10:48 a Reviewed By: Ted Serrano MD Signed By: Ted Serrano MD Signed Date/Time: 05/02/21 10:48 am Transcribed By: KELLY Transcribed Date/Time: 05/02/21 10:41 am Exam Date Time Procedure Performing Provider Status 05/02/21 10:24 AM Foot Min 3 Views Right Dolly Jama; Parish (Verified) Notes:(Foot Min 3 Views Right) Reason For Exam: TraumaRESULT: Foot Min 3 Views Right Right foot 3 views dated May 02, 2021. No prior studies are available. HISTORY: Pain. FINDINGS: This examination shows no evidence of fracture or dislocation. Mild arthritic changes are present in the metatarsophalangeal joints. Postoperative changes are noted in the distal tibia and fibula. IMPRESSION: No evidence of acute osseous abnormality. Mild degenerative changes. Postoperative changes. Examination [id number]. Thank you for allowing me to participate in the care of this patient. WSN: [id number] Ordering Physician: Kwabena Munoz Dictated By: Ted Serrano MD Dictated Date/Time: 05/02/21 10:38 a Reviewed By: Ted Serrano MD Signed By: Ted Serrano MD Signed Date/Time: 05/02/21 10:38 am Transcribed By: KELLY Transcribed Date/Time: 05/02/21 10:38 am Vital Signs Most recent to oldest 1 2 3 [Reference Range]: Oxygen Saturation [94-100 %] 96 % 95 % 97 % (05/02/21 3:20 PM) (05/02/21 1:17 PM) (05/02/21 9:4 6 AM) Pulse Rate [55-90 bpm] 70 bpm 76 bpm 90 bpm (05/02/21 3:20 PM) (05/02/21 1:17 PM) (05/02/21 9:4 6 AM) Blood Pressure [90-138/55-84 116/62 mm Hg 113/61 mm Hg 126 /89 mm Hg mm Hg] (05/02/21 3:20 PM) (05/02/21 1:17 PM) (05/02/21 9:4 6 AM) Respiratory Rate [16-30 18 br/min 16 br/min 16 br/mi n br/min] (05/02/21 3:20 PM) (05/02/21 1:17 PM) (05/02/21 12: 35 PM) Temperature [96.8-100.4 DegF] 97.7 DegF (05/02/21 9:46 AM) Mode of Delivery (Oxygen) Room air Room air Room a ir (05/02/21 3:20 PM) (05/02/21 1:17 PM) (05/02/21 9:4 6 AM) Blood pressure sites Arm, left Arm, left Arm, left (05/02/21 3:20 PM) (05/02/21 1:17 PM) (05/02/21 9:4 6 AM) Temperature Route Oral (05/02/21 9:46 AM) Social History Social History Type Response Smoking Status Current every day smoker; Ty pe: Cigarettes; Number of years: 40; entered on: 05/09/18 Sex Male
--- OUTSIDE RECORDS SUMMARY | 2022-09-29 13:35 | XMS_ITS | Continuity of Care Document ---
:1965 Author Organization [facility] Address [address] [place] [address]- Care Team Providers Name Role Phone Real Arambula DO Primary Care Physician [phone] Encounter [facility] Date(s): 09/12/22 - 09/13/[address] [id number] Discharge Disposition: A-D/C Home Attending Physician: Patel King MD Admitting Physician: Jakob Ingram DO Referring Physician: Not on Staff, Referring [...] virus vaccine, inactivated 10/02/11 Given SARS-CoV-2 mRNA ([id number]) vax 03/31/22 Recorde d SARS-CoV-2 mRNA (chclwiz-rpps-[id number]) vax 12/24/21 Recorde d SARS-CoV-2 (COVID-19) mRNA [...] Patient states I already got it Medications amLODIPine 5 mg oral tablet 1 tablet = 5 mg, By Mouth, Daily, # 30 tablet, 1 Refills, Maintenance, 09/13/22 8:48:00 EST, Tablet,Partial fill upon patient request if the prescription is for a schedule II opioid drug. Start Date: 09/13/22 Status: Orderedatorvastatin 40 mg oral tablet 1 tablet = 40 mg, By Mouth, Daily at bedtime, # 30 tablet, 3 Refills, Maintenance, 07/21/22 16:49:00EST, Tablet, [facility]/pharmacy #[id number], Partial fill upon patient request if the prescription is for a schedule II opioid drug., 165.2, cm, 07/21/22 11:23:00... Start Date: 07/21/22 Status: OrderedbuPROPion 150 mg/24 hours (XL) oral tablet, extended release 1 tablet = 150 mg, By Mouth, Every 24 hours, # 30 tablet, 1 Refills, Maintenance, 09/13/22 8:48:00 EST, XL Tablet, Partial fill upon patient request if the prescription is for a schedule II opioid drug. Start Date: 09/13/22 Status: Orderedcyclobenzaprine 10 mg oral tablet 10 mg, 1, tablet, By Mouth, 3 times a day, PRN, pain/ spasms/ body aches, # 90 tablet, Refills 1, Tot. Refills 1, Maintenance, Other, 07/21/22 9:35:00 EST, Route to Pharmacy Electronically, [facility]/pharmacy #[id number], Partial fill upon patient request if the... Start Date: 07/21/22 Status: OrderedoxyCODONE 5 mg oral tablet 5 mg, 1, tablet, By Mouth, Every 6 hours, PRN, for 3 days, # 12 tablet, Refills 0, Tot. Refills 0, Acute 09/16/22 8:48:00 EST, Pain , Severe, 09/13/22 8:48:00 EST, Print Requisition, Partial fill upon patient request if the prescription is for a sched... Start Date: 09/13/22 Stop Date: 09/16/22 Status: Orderedpantoprazole 40 mg oral delayed release tablet = 40 mg, By Mouth, Daily, # 30 tablet, 1 Refills, Maintenance, 09/13/22 8:48:00 EST, EC Tablet Start Date: 09/13/22 Status: OrderedPARoxetine 40 mg oral tablet 40 mg, 1, tablet, By Mouth, Daily in AM, # 30 tablet, Refills 1, Tot. Refills 1, Maintenance, 09/13/22 8:48:00 EST, Print Requisition Start Date: 09/13/22 Stop Date: 11/12/22 Status: Ordered Problem List Condition Confirmation Course Effective Dates Status Health I nformant Status Alcohol dependence Confirmed Active Alcoholic hepatitis Confirmed Active Anxiety Confirmed Active Benign prostatic Confirmed Active hyperplasia CHRONIC ISCHEMIC Confirmed 2007 Active HEART DISEASE, UNSPECIFIED Cirrhosis Confirmed Active Cocaine dependence Confirmed Active Depression Confirmed Active Mild diastolic Confirmed Active dysfunction Marijuana use Confirmed Active Hyperlipidemia Confirmed Active Hypertension Confirmed Active Bilateral knee pain Confirmed Active Nicotine use disorder Confirmed Active Obese class I Confirmed Active Obese class II Confirmed Active Opiate dependence Confirmed Active Portal hypertensive Confirmed 12/29/17 Active gastropathy Prinzmetal angina Confirmed Active SUBDURAL HEMORRHAGE Confirmed 03/10/09 Active Results Orders for Microbiology Reports Name Date Blood Culture 09/12/22 Blood Culture #2 09/12/22 Microbiology Reports TEST:Blood Culture, Second Order STATUS:Unauthenticated BODY SITE: SOURCE:Blood COLLECTED DATE/TIME:09/12/22 12:20 PMBlood Culture, Second Order SPECIMEN DESCRIPTION : BLOOD R HAND SPECIAL REQUESTS : NONE CULTURE : NO GROWTH AFTER 24 HOURS REPORT STATUS : PRELIMINARY REPORT TEST:Blood Culture STATUS:Unauthenticated BODY SITE: SOURCE:Blood COLLECTED DATE/TIME:09/12/22 11:54 AMBlood Culture SPECIMEN DESCRIPTION : BLOOD LARM SPECIAL REQUESTS : NONE CULTURE : NO GROWTH AFTER 24 HOURS REPORT STATUS : PRELIMINARY REPORT Radiology Reports Exam Date Time Procedure Performing Provider Status 09/12/22 12:[address] Angio Abdomen Sanam Bond; Auth (Herson ified) Notes:(CT Angio Abdomen) Reason For Exam: Renal artery dissection suspected;Other:RESULT: CT Angio Abdomen EXAMINATION: CT Angio Chest, CT Angio Abdomen INDICATION: Chest pain, concern for aortic dissection. TECHNIQUE: Spiral CTA of the chest was performed after rapid IV contrast administration without cardiac gating, triggered by an TOÑA on the main pulmonary artery. Images are formatted in multiple planesusing 2-D multiplanar and 3-D maximum intensity projection. 80 cc of Omnipaque 300 was administered i ntravenously. This study was performed without oral contrast. Weight-based protocol using automatic tube modulation was used to optimize exposure parameters. CTDIvol Body: 11.37 mGy, DLP Body: 754 mGy*cm. COMPARISONS: CT angiogram chest 04/28/2010. CT scan of 06/30/2022. ANGIOGRAPHIC FINDINGS: Mild calcified and noncalcified plaque of the aorta and its branches. No aortic dissection or aneurysm. Normal three vessel arch without branch vessel stenosis. Pulmonary arteries are normal in caliber. No evidence of central pulmonary embolism on this study performed without dedicated technique. Abdominal aorta: No aortic aneurysm or dissection. Celiac axis: Patent. Superior mesenteric artery: Patent. Right renal artery: Patent. Left renal artery: Patent. Inferior mesenteric artery: Patent. Visualized proximal common iliac arteries: Patent. NON-ANGIOGRAPHIC FINDINGS: Certified Adapted Physical Educator View Findings, Lines and Tubes: None. Trachea and Airways: Patent without evidence of tracheal or endobronchial lesion. Lungs and Pleura: Mild atelectasis of the dependent lungs. 0.3 cm subpleural nodule in the right posterior lung (image 136 series 605). This is unchanged from 04/28/2010 is likely benign. No effusion orpneumothorax. Mediastinum and rene: No mass or hematoma. No mediastinal or hilar lymphadenopathy. No esophageal abnormality. Partially imaged thyroid is unremarkable. Heart: Heart is normal in size. No pericardial effusion. Moderate coronary artery calcification. Chest Wall Soft Tissues: Mild symmetrical gynecomastia. Diaphragm: No significant abnormality. Liver: Similar nodular contour of the liver with a relatively shrunken left hepatic lobe. Gallbladder: Absent consistent with prior cholecystectomy. Bile ducts: No biliary ductal dilation. Spleen: Splenomegaly measuring up to 15.6 cm (image 113 series 607). Pancreas: Normal. Adrenal glands: Normal. Kidneys and ureters: 0.5 cm nonobstructing stone in the right kidney (image 581 series 605). No hydronephrosis or suspicious masses. Stomach, small bowel, and large bowel: Stomach is normal. Visualized small bowel is normal. Mild diverticulosis of the visualized large bowel with no evidence of acute diverticulitis. Peritoneum and retroperitoneum: No ascites or pneumoperitoneum. No omental or mesenteric lesions. Lymph nodes: No enlarged lymph nodes. Abdominal wall: Unremarkable. Bones: No acute abnormality. Chronic fracture deformities of the T7 and T9 vertebral bodies with moderate loss of height. These are unchanged since 06/30/2022. Similar mild superior endplate compression deformities of T12, L1 and L2. IMPRESSION: No aortic aneurysm or dissection. Cirrhotic liver with suggestion of portal hypertension as evidenced by splenomegaly. Splenomegaly. Nonobstructing 0.5 cm stone in the right kidney. Mild colonic diverticulosis with no evidence of acute diverticulitis. I have personally reviewed the images and I agree with this report. WSN: [id number] Ordering Physician: Bharati Conner Dictated By: Lon Huff MD Dictated Date/Time: 09/12/22 1:04 pm Reviewed By: Talib Fairchild MD Signed By: Talib Fairchild MD Signed Date/Time: 09/12/22 1:09 pm Transcribed By: KELLY Transcribed Date/Time: 09/12/22 12:38 pm Exam Date Time Procedure Performing Provider Status 09/12/22 12:[address] Angio Chest Sanam Bond; Auth (Steffanie nasreen) Notes:(CT Angio Chest) Reason For Exam: Aortic disease, nontraumatic;Other: RESULT: CT Angio Chest EXAMINATION: CT Angio Chest, CT Angio Abdomen INDICATION: Chest pain, concern for aortic dissection. TECHNIQUE: Spiral CTA of the chest was performed after rapid IV contrast administration without cardiac gating, triggered by an TOÑA on the main pulmonary artery. Images are formatted in multiple planesusing 2-D multiplanar and 3-D maximum intensity projection. 80 cc of Omnipaque 300 was administered i ntravenously. This study was performed without oral contrast. Weight-based protocol using automatic tube modulation was used to optimize exposure parameters. CTDIvol Body: 11.37 mGy, DLP Body: 754 mGy*cm. COMPARISONS: CT angiogram chest 04/28/2010. CT scan of 06/30/2022. ANGIOGRAPHIC FINDINGS: Mild calcified and noncalcified plaque of the aorta and its branches. No aortic dissection or aneurysm. Normal three vessel arch without branch vessel stenosis. Pulmonary arteries are normal in caliber. No evidence of central pulmonary embolism on this study performed without dedicated technique. Abdominal aorta: No aortic aneurysm or dissection. Celiac axis: Patent. Superior mesenteric artery: Patent. Right renal artery: Patent. Left renal artery: Patent. Inferior mesenteric artery: Patent. Visualized proximal common iliac arteries: Patent. NON-ANGIOGRAPHIC FINDINGS: Certified Adapted Physical Educator View Findings, Lines and Tubes: None. Trachea and Airways: Patent without evidence of tracheal or endobronchial lesion. Lungs and Pleura: Mild atelectasis of the dependent lungs. 0.3 cm subpleural nodule in the right posterior lung (image 136 series 605). This is unchanged from 04/28/2010 is likely benign. No effusion orpneumothorax. Mediastinum and rene: No mass or hematoma. No mediastinal or hilar lymphadenopathy. No esophageal abnormality. Partially imaged thyroid is unremarkable. Heart: Heart is normal in size. No pericardial effusion. Moderate coronary artery calcification. Chest Wall Soft Tissues: Mild symmetrical gynecomastia. Diaphragm: No significant abnormality. Liver: Similar nodular contour of the liver with a relatively shrunken left hepatic lobe. Gallbladder: Absent consistent with prior cholecystectomy. Bile ducts: No biliary ductal dilation. Spleen: Splenomegaly measuring up to 15.6 cm (image 113 series 607). Pancreas: Normal. Adrenal glands: Normal. Kidneys and ureters: 0.5 cm nonobstructing stone in the right kidney (image 581 series 605). No hydronephrosis or suspicious masses. Stomach, small bowel, and large bowel: Stomach is normal. Visualized small bowel is normal. Mild diverticulosis of the visualized large bowel with no evidence of acute diverticulitis. Peritoneum and retroperitoneum: No ascites or pneumoperitoneum. No omental or mesenteric lesions. Lymph nodes: No enlarged lymph nodes. Abdominal wall: Unremarkable. Bones: No acute abnormality. Chronic fracture deformities of the T7 and T9 vertebral bodies with moderate loss of height. These are unchanged since 06/30/2022. Similar mild superior endplate compression deformities of T12, L1 and L2. IMPRESSION: No aortic aneurysm or dissection. Cirrhotic liver with suggestion of portal hypertension as evidenced by splenomegaly. Splenomegaly. Nonobstructing 0.5 cm stone in the right kidney. Mild colonic diverticulosis with no evidence of acute diverticulitis. I have personally reviewed the images and I agree with this report. WSN: [id number] Ordering Physician: Bharati Conner Dictated By: Lon Huff MD Dictated Date/Time: 09/12/22 1:04 pm Reviewed By: Talib Fairchild MD Signed By: Talib Fairchild MD Signed Date/Time: 09/12/22 1:09 pm Transcribed By: KELLY Transcribed Date/Time: 09/12/22 12:38 pm Vital Signs Most recent to oldest [Reference 1 2 3 Range]: Height 178 cm 178 cm 178 cm (09/13/22 7:44 AM) (09/13/22 3:27 AM) (09/12/22 11:39 PM) Weight 96.5 kg (09/12/22 6:59 PM) Oxygen Saturation [94-100 %] 99 % 99 % 98 % (09/13/22 7:44 AM) (09/13/22 3:27 AM) (09/12/22 11:39 PM) Pulse Rate [55-90 bpm] 100 bpm 100 bpm 89 bpm *H* *H* (09/13/22 3:27 AM) (09/13/22 9:17 AM) (09/13/22 7:44 AM) Body Mass Index [18.5-24.99 30.46 kg/m2 kg/m2] *>HHI* (09/12/22 6:59 PM) Blood Pressure [90-138/55-84 mm 147/96 mm Hg 147/96 mm Hg 146/85 mm Hg Hg] *H* *H* *H* (09/13/22 9:17 AM) (09/13/22 7:44 AM) (09/13/22 3:27 A M) Respiratory Rate [16-30 br/min] 18 br/min 18 br/min 18 br/min (09/13/22 9:17 AM) (09/13/22 8:00 AM) (09/13/22 7:44 A M) Temperature [96.8-100.4 DegF] 98.3 DegF 98.1 DegF 98 .1 DegF (09/13/22 7:44 AM) (09/13/22 3:27 AM) (09/12/22 11:39 PM) Liters per Minute 2 L/min 2 L/min 15 L/min (09/12/22 2:32 PM) (09/12/22 1:28 PM) (09/12/22 12:18 PM) Mode of Delivery (Oxygen) Room air Room air Room a ir (09/13/22 7:44 AM) (09/13/22 3:27 AM) (09/12/22 11:39 PM) Blood pressure sites Arm, right Arm, left Arm, left (09/13/22 7:44 AM) (09/13/22 3:27 AM) (09/12/22 11:39 PM) Temperature Route Oral Oral Oral (09/13/22 7:44 AM) (09/13/22 3:27 AM) (09/12/22 11:39 PM) Dry Weight 96.5 kg (09/12/22 6:59 PM) Weight Obtained Via Bed scale (09/12/22 6:59 PM) Dry Weight Obtained Via Bed scale (09/12/22 6:59 PM) Social History Social History Type Response Smoking Status Current every day smoker; Ty pe: Cigarettes; Number of years: 40; entered on: 05/09/18 Sex Male History and physical note Johny GÓMEZ, Elgin De Guzman: PERFORM Event Display: History and Physical Hospital Authored Date: [id number] Patient: ??DANIELLE MASSEY ? Age:??57 Years?Sex:??Male?:??1965?? Chief Complaint/Reason for Consultation coming from home; cp/abd pain radiating to back starting yesterday, worse today. Off of all meds [id number]. Last use of illicit substances 3 days ago. History of Present Illness 57-year-old male with??history of polysubstance abuse including alcohol use disorder, cocaine use disorder, and opioid use disorder,??depression, alcoholic liver cirrhosis,??hypertension, hyperlipidemia,??chronic ischemic heart disease,??and TBI/subdural hematoma??presenting to the emergency departmen t??with lower chest and upper abdominal pain??radiating to his back??over the past 2 days.?? He states he has not used any substances in the past 3 days.?? He last used cocaine 3 days ago, and did not have the chest pain at that time. ??He denies??withdrawal symptoms.?? He has not had cough or sputum production. ??No fever.?? He denies vomiting,??changes in bowel movements, blood in the stool, or urinary symptoms.?? He called EMS, and was noted to be desaturating to 90% on room air.?? He was initially put on a nonrebreather, but at the time of my evaluation??is not wearing oxygen and saturating 98%.?? He states that he was only short of breath with the pain. ?? Currently, the patient is afebrile and hemodynamically stable.?? He is saturating 98% on room air.?? He received nitroglycerin for the pain which did not help, and caused him to have a headache.?? He received morphine 4 mg IV x3 and 2 mg IV x1 with temporary relief of the pain. Review of Systems Other than those positives as noted in the HPI above, the remaining comprehensive 14-point review of systems is negative. Objective Measurements?? Height: 178 cm (09/12/22) Weight: 96.5 kg (09/12/22) Dry Weight: 96.5 kg (09/12/22) Body Mass Index:??30.46 kg/m2??Critical (09/12/22) ? Vital Signs?? Temperature: 98.2 DegF (09/12/22 19:13:00) Temperature Route: Oral (09/12/22 19:13:00) Pulse Rate:??99 bpm??High (09/12/22 19:13:00) Respiratory Rate: 18 br/min (09/12/22 21:16:00) Systolic Blood Pressure: 132 mm Hg (09/12/22 19:13:00) Diastolic Blood Pressure:??93 mm Hg??High (09/12/22 19:13:00) Blood pressure sites: Arm, left (09/12/22 19:13:00) Mean Arterial Pressure: 106 mm Hg (09/12/22 19:13:00) Pulse Pressure: 39 mm Hg (09/12/22 19:13:00) Oxygen Saturation: 98 % (09/12/22 19:13:00) Liters per Minute: 2 L/min (09/12/22 14:32:00) Mode of Delivery (Oxygen): Room air (09/12/22 19:13:00) Early Warning Score: 6 (09/12/22 21:18:45) ? Pain Scores 1 - 10 Pain Scale Score: 7 (19:04) ? Physical Exam General Appearance: Alert, appears stated age, answers questions appropriately, not actively withdrawing HEENT: Normocephalic, atraumatic, PERRL, EOMI, no scleral icterus, no facial droop, moist mucous membranes, no oropharynx lesions?? Neck: Supple, no JVD, no C-Spine tenderness, no LAD Cardiac: RRR, S1 & S2 present, no m / r / g appreciated Chest: Clear to auscultation bilaterally, no wheezing / ronchi / rales, no tenderness to percussion Abdomen: Soft, epigastric and right upper quadrant tenderness, no distention, no rebound or guarding, no masses, no fluid wave, normal bowel sounds in all quadrants Extremities: No clubbing, cyanosis, or edema. ??2+ distal pulses. ??Capillary refill < 3 seconds. ??No calf tenderness or cords Skin: Warm, dry Neuro: ??A & O x 3, CN III-XII intact, strength 5/5 of upper / lower extremities bilaterally, gross sensation intact Psych: ??Stable mood, appropriate affect Assessment/Plan Assessment:??57-year-old male with history of polysubstance abuse including alcohol use disorder, cocaine use disorder, and opioid use disorder, depression, alcoholic liver cirrhosis, hypertension, hyperlipidemia, chronic ischemic heart disease, and TBI/subdural hematoma presenting to the emergency department with lower chest and upper abdominal pain radiating to his back over the past 2 days.??Work-up is clinically consistent with gastritis or pancreatitis, without acute findings on??CT of the??chest,??abdomen and pelvis. ?? Chest pain (R07.9) Abdominal pain (R10.9):??I suspect the patient has acute alcoholic??or substance induced??pancreatitis versus gastritis.??The patient does not have evidence for ACS.??CT without evidence for??PE, aneurysm, or dissection.??ER clinician??reviewed??scan with radiology who felt that he might have a chronic intramural??thrombus of the descending aorta, unlikely to be contributing to today's symptoms. Mesenteric ischemia is possible but unlikely given CT angio results.?? On exam he seems to be most tender over the epigastric and right upper quadrant area.??LFTs??show chronic hyperbilirubinemia??without t ransaminitis.??CT does not show biliary obstruction??or pancreatic pathology.??Lipase was not obtained in the emergency room.??He remains afebrile and hemodynamically stable. 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 Cirrhosis (K74.60):??LFTs currently at baseline. No current ascites on exam or imaging. The patient has not taken diuretics in many months. ?? Hypertension (I10) Hyperlipidemia (E78.5):??The patient has not taken any of his medications in over a month. Blood pressure elevated earlier in the setting of pain and possibly withdrawal. We will treat with clonidine??as outlined below. Would consider restarting??previously prescribed amlodipine??and atorvastatin at discharge, if patient is willing to take. ?? Alcohol dependence (F10.20):??Per nursing, current CIWA score 13.?? Patient does not have history of alcohol withdrawal seizures. Continue symptom-triggered treatment protocol of alcohol withdrawal syndrome (MONI) with benzodiazepines as follows: If CIWA???Ar less than 14 during first 24 hours of MONI: Lorazepam 1-2 mg PO/IV every 1 to 2 hours or Diazepam PO every 6 to 8 hours as needed for CIWA???Ar 1- 13.?? If unchanged or escalating CIWA-Ar score despite 6 mg of Lorazepam or 15 mg of Diazepam, consider Phenobarbital and contact provider. Start Thiamine 100 mg orally twice daily, Folic acid 1 mg daily, MVI daily, and Pyridoxine 50 mg daily. Addiction medicine consultation requested. ?? Depression (F32.9):??Patient states that depression has driven his substance abuse in the past.??Elsa current SI. He is interested in restarting previously prescribed bupropion and paroxetine.??I have ordered these. Unclear if patient was ever taking aripiprazole. ?? Cocaine dependence (F14.20) Opiate dependence (F11.20):??Last use 3 days ago.??He does not have signs or symptoms of significant??opiate withdrawal at this time.??He has received morphine for pain in the emergency room. No evidence for??cardiac ischemia with ongoing cocaine dependence. We will order clonidine 0.1 mg up to 3 times daily as needed for agitation/anxiety. We will order Vistaril 25 mg??up to 4 times daily as needed for nausea/sweats. Continue cyclobenzaprine 10 mg up to 3 times daily for spasm. Addiction medicine consultation requested. ?? Nicotine use disorder (F17.200):??Nicotine patch 14 mg daily. ?? VTE Prophylaxis:??SCDs, encourage ambulation. ?VTE Prophylaxis Assessment:??VTE Prophylaxis Ordered ?? Code Status:??FULL. ?Order Code Status:??Code Status Ordered ?? Discharge Planning:??Anticipate home with services, 1 to 2 days. ?? I spent a total of??75 minutes today reviewing the chart / medical records, evaluating the patient,evaluating and interpreting laboratory and imaging data, formulating and discussing the treatment plan, and documenting the encounter. ? Histories Allergies Allergies ?(Active and Proposed Allergies Only) NKA? (Severity: Unknown severity, Onset: Unknown) ? Past Medical History/Problem List Active Problems??(22) Abdominal pain Alcohol dependence Alcohol withdrawal Alcoholic hepatitis Anxiety Benign prostatic hyperplasia Bilateral knee pain CHRONIC ISCHEMIC HEART DISEASE, UNSPECIFIED Cirrhosis Cocaine dependence Depression Hyperlipidemia Hypertension Marijuana use Mild diastolic dysfunction Nicotine use disorder Obese class I Obese class II Opiate dependence Portal hypertensive gastropathy Prinzmetal angina SUBDURAL HEMORRHAGE ? Past Surgical History Esophagogastroduodenoscopy: 12/29/17 Cholecystectomy Oral surgery Total replacement of left knee joint Craniotomy ? Social History Alcohol Details:??Use: Current. ??Frequency: Daily. ??Type: Liquor. ??Other: 1 quart (rum) daily, last drink 3 days ago; no hx seizures from w/d, does have hx DTs in past. Substance Abuse Details:??Use: Current. ??Type: Cocaine, Heroin. ??Other: never IVDU; almost daily; last use of each??3 days ago. ??IV drug use: No. Tobacco Details:??Current every day smoker, Type: Cigarettes.?1/2 ppd. ? Family History Mother: Cancer of breast Father: CAD - Coronary artery disease; Hypertension Other: Alcoholism; Substance user ? Medications Home Medications Amlodipine (amLODIPine 5 mg oral tablet)?1?tab(s)?5?Milligram?By Mouth?Daily Aripiprazole (ARIPiprazole 5 mg oral tablet)?5?Milligram?1?tablet?By Mouth?Daily Atorvastatin (atorvastatin 40 mg oral tablet)?1?tab(s)?40?Milligram?By Mouth?Daily at bedtime BuPROpion (buPROPion 150 mg/24 hours (XL) oral tablet, extended release)?1?tab(s)?150?Milligram?By Mouth?Every 24 hours Cyclobenzaprine (cyclobenzaprine 10 mg oral tablet)?10?Milligram?1?tablet?By Mouth?3 times a day?as needed?pain/ spasms/ body aches?Other Pantoprazole (pantoprazole 40 mg oral delayed release tablet)?40?Milligram?By Mouth?Daily Paroxetine (PARoxetine 40 mg oral tablet)?40?Milligram?1?tablet?By Mouth?Daily Blue?for 30?Days ? Results Recent Labs BLOOD BANK Blood Type A Positive ()?? 09/12/2022 11:58 Antibody Screen Negative ()?? 09/12/2022 11:58 ?? BLOOD COUNT & DIFF WBC 8.0 k/mm3 ()?? 09/12/2022 11:58 RBC 4.88 m/mm3 ()?? 09/12/2022 11:58 Hgb 15.1 Gm/dL ()?? 09/12/2022 11:58 Hct 42.9 % ()?? 09/12/2022 11:58 MCV 87.9 femtoliters ()?? 09/12/2022 11:58 MCH 30.9 pg ()?? 09/12/2022 11:58 MCHC 35.2 g/dL ()?? 09/12/2022 11:58 Platelet Count 137 k/mm3 (Low)?? 09/12/2022 11:58 RDW-SD 42.2 femtoliters ()?? 09/12/2022 11:58 MPV 10.8 femtoliters ()?? 09/12/2022 11:58 Nucleated RBC (Automated) 0.0 #/100 WBC'S ()?? 09/12/2022 11:58 Abs. NRBC 0.0 k/mm3 ()?? 09/12/2022 11:58 Abs. Neut 5.6 k/mm3 ()?? 09/12/2022 11:58 Abs. Lymph 1.8 k/mm3 ()?? 09/12/2022 11:58 Abs. Lasalle 0.5 k/mm3 ()?? 09/12/2022 11:58 Abs. Eo 0.1 k/mm3 ()?? 09/12/2022 11:58 Abs. Baso 0.1 k/mm3 ()?? 09/12/2022 11:58 Neut % 69.5 % ()?? 09/12/2022 11:58 Lymph % 22.2 % ()?? 09/12/2022 11:58 Lasalle % 5.9 % ()?? 09/12/2022 11:58 Eos % 1.5 % ()?? 09/12/2022 11:58 Baso % 0.7 % ()?? 09/12/2022 11:58 Imm Gran 0.2 % ()?? 09/12/2022 11:58 Abs. Imm Gran 0.0 k/mm3 ()?? 09/12/2022 11:58 ?? CARDIAC Nt-Probnp 48 pg/mL ()?? 09/12/2022 11:58 High Sensitivity Troponin (HSTnT) 10 ng/L ()?? 09/12/2022 14:45 ?? CHEM GENERAL Sodium 138 mmol/L ()?? 09/12/2022 11:58 Potassium 3.9 mmol/L ()?? 09/12/2022 11:58 Chloride 103 mmol/L ()?? 09/12/2022 11:58 Bicarbonate Level 21 mmol/L (Low)?? 09/12/2022 11:58 Anion Gap 14 ()?? 09/12/2022 11:58 Glucose Level 146 mg/dL (High)?? 09/12/2022 11:58 Glucose, POC 108 mg/dL (High)?? 09/12/2022 19:55 BUN 6 mg/dL ()?? 09/12/2022 11:58 Creatinine-Blood 0.9 mg/dL ()?? 09/12/2022 11:58 Estimated GFR Creatinine 97 ML/MIN/1.73 M2 ()?? 09/12/2022 11:58 Calcium 9.7 mg/dL ()?? 09/12/2022 11:58 Protein, Total 6.8 Gm/dL ()?? 09/12/2022 11:58 Albumin 4.4 Gm/dL ()?? 09/12/2022 11:58 AG Ratio 1.8 ()?? 09/12/2022 11:58 Alkaline Phosphatase 111 units/L ()?? 09/12/2022 11:58 AST (SGOT) 21 units/L ()?? 09/12/2022 11:58 ALT (SGPT) 24 units/L ()?? 09/12/2022 11:58 Bilirubin, Total 2.0 mg/dL (High)?? 09/12/2022 11:58 Lactate 1.7 mmol/L ()?? 09/12/2022 12:03 ?? COAG INR 1.1 ()?? 09/12/2022 11:58 Protime (PT) 11.4 seconds ()?? 09/12/2022 11:58 APTT 24.8 seconds ()?? 09/12/2022 11:58 ?? MISC. CHEMISTRY Hold Gel Top SPECIMEN DISCARDED AFTER 1 WEEK ()?? 09/12/2022 12:20 ?? VIROLOGY Influenza A PCR NEGATIVE ()?? 09/12/2022 14:41 Influenza B PCR NEGATIVE ()?? 09/12/2022 14:41 RSV PCR NEGATIVE ()?? 09/12/2022 14:41 COVID-19 PCR Specimen Source NASAL ()?? 09/12/2022 14:41 COVID-19 PCR Result NEGATIVE ()?? 09/12/2022 14:41 ? Imaging(s) ?CT Angio Chest ?? 09/12/2022 12:12??by Talib Fairchild MD ?IMPRESSION: No aortic aneurysm or dissection. Cirrhotic liver with suggestion of portal hypertension as evidenced by splenomegaly. Splenomegaly. Nonobstructing 0.5 cm stone in the right kidney. Mild colonic diverticulosis with no evidence of acute diverticulitis. ?Other Image ?EKG: Ventricular Rate: 117 BPM Atrial Rate: 117 BPM P-R Interval: 144 ms QRS Duration: 72 ms Q-T Interval: 320 ms QTC Calculation(Bazett): 446 ms P [place]: 67 degrees R [place]: 62 degrees T [place]: 51 degrees Sinus tachycardia Otherwise normal ECG ? Note Event Display: Cardiac Rhythm Strips Authored Date: Cesar Coleman DO: PERFORM, MODIFY, MODIFY Event Display: Discharge/Transfer Note Hospital Authored Date: Patient: ??DANIELLE MASSEY ? Age:??57 Years?Sex:??Male?:??1965?? Patient Information Discharge Location: [facility] Primary Care Physician: Real Arambula DO Admit Date/Time: 09/12/22 11:37 Discharge Disposition Discharge Disposition: Home: No Services Discharge Diagnosis Chest pain (R07.9) Abdominal pain (R10.9) Cirrhosis (K74.60) Hypertension (I10) Hyperlipidemia (E78.5) Alcohol dependence (F10.20) Depression (F32.9) Cocaine dependence (F14.20) Opiate dependence (F11.20) Nicotine use disorder (F17.200) ?? _ Discharge Medications Amlodipine (amLODIPine 5 mg oral tablet)?1?tab(s)?5?Milligram?By Mouth?Daily Atorvastatin (atorvastatin 40 mg oral tablet)?1?tab(s)?40?Milligram?By Mouth?Dailyat bedtime BuPROpion (buPROPion 150 mg/24 hours (XL) oral tablet, extended release)?1?tab(s)?150?Milligram?By Mouth?Every 24 hours Cyclobenzaprine (cyclobenzaprine 10 mg oral tablet)?10?Milligram?1?tablet?By Mouth?3 times a day?as needed?pain/ spasms/ body aches?Other Oxycodone (oxyCODONE 5 mg oral tablet)?5?Milligram?1?tablet?By Mouth?Every 6 hours?as needed?for 3?Days?Pain , Severe Pantoprazole (pantoprazole 40 mg oral delayed release tablet)?40?Milligram?By Mouth?Daily Paroxetine (PARoxetine 40 mg oral tablet)?40?Milligram?1?tablet?By Mouth?Daily in AM?for 30?Days ? Quality Measures Tobacco Use Treatment:?Cessation Medication Prescribed on Discharge:??Tobacco Cessation Medication Prescribed ? Medications Started Oxycodone (oxyCODONE 5 mg oral tablet)?5?Milligram?1?tablet?By Mouth?Every 6 hours?as needed?for 3?Days?Pain , Severe Refilled Amlodipine (amLODIPine 5 mg oral tablet)?1?tab(s)?5?Milligram?By Mouth?Daily Medications Discontinued None Doses Changed None Allergies Allergies ?(Active and Proposed Allergies Only) NKA? (Severity: Unknown severity, Onset: Unknown) ? PCP Follow-Up/Heads-Up ??Nicolas??was seen here for chest pain, abdominal pain On admission he was stable and afebrile, labs unremarkable, high-sensitivity troponins flat and within normal limits EKG did not show any evidence of ischemia Lipase within normal limits CT angio abdomen pelvis showed no aortic aneurysm/dissection, cirrhosis, splenomegaly, nonobstructing 0.5 cm stone right kidney, mild colonic diverticulosis ER physician and radiologist saw chronic intramural thrombus on review of imaging but is likely not clinically relevant He was also found to have CIWA score 13 which appears to a CIWA score of 1 He has not taken any of his medications in over a month, would recommend discussing starting some ofhis home medications of which we will restart amlodipine Will need outpatient??vascular??follow-up and reimaging for??chronic??descending aortic intramural thrombus Would recommend having discussion with patient about his liver cirrhosis and alcohol use disorder aswell as other polysubstance use disorder Hospital Course 57-year-old male with history polysubstance abuse including alcohol use disorder, cocaine use disorder, opioid use disorder, alcoholic liver cirrhosis, hypertension, hyperlipidemia, TBI, depression wasadmitted for chest pain, abdominal pain.?? In the ED he was afebrile and hemodynamically stable, satting well on room air.?? He did receive nitroglycerin for pain in the ED which not helped.?? He received IV morphine 4 mg x 3, pain 2 mg x 1 with temporary relief of pain.?? Labs were unremarkable and troponins were flat and within normal limits.?? EKG showed no signs of acute ischemia.??CT angio abdomen pelvis showed no aortic aneurysm/dissection, cirrhosis, splenomegaly, nonobstructing 0.5 cm stone right kidney, mild colonic diverticulosis. ??Patient did have CIWA score 13 without history of alcohol withdrawal seizures.?? He received Ativan 1 mg x 1.?? He also received multivitamin, thiamine, folate, pyridoxine.?? He is now with improvement of CIWA to 1.?? He was also found to be hypertensive andwith hyperlipidemia but had not taken any of his medications over 1 month.?? He currently states he is feeling much better and feels ready to go home.?? He is hemodynamically stable and appropriate fordischarge at this time. ?? Chest Pain Abdominal Pain Tenderness worst over epigastrum and RUQ LFTs showed no transaminitis but chronic hyperbilirubinemia, lipase was wnl Suspected to be in the setting of alcohol withdrawal vs gastritis Less likely acute pancreatitis but cannot rule out chronic pancreatitis No evidence of ACS with troponins flat and wnl, EKG showing no signs of ischemia CT angio abdomen pelvis showed no aortic aneurysm/dissection, cirrhosis, splenomegaly, nonobstructing 0.5 cm stone right kidney, mild colonic diverticulosis, ER clinician did review scan with radiologist who felt patient might have chronic intramural thrombus of descending aorta but this is not clinically likely to be contributing to his symptoms Is now tolerating a diet well ?? Recommendations: -Will discharge patient on very short course of oxycodone 5mg for few days -Will need to follow up with PCP to discuss cirrhosis seen on imaging in setting of alcohol use disorder -Will also need outpatient vascular follow-up and reimaging for chronic descending aortic intramuralthrombus ?? Alcohol Use Disorder Initial CIWA was 13 per nursing Patient was on CIWA protocol and received 1mg ativan x 1 as a result Was also started on thiamine 100mg BID, folic acid 1mg daily, MVI daily, pyridoxine 50mg daily ?? Recommendations: -Follow up with PCP, may need further counseling/medication management as outpatient ?? Chronic/Stable Ongoing/Resolved Medical Problems: Cirrhosis: LFTs at baseline, no evidence pleural effusion/ascites, follow up with PCP as per above note Hypertension: resumed home amlodipine 5mg as per above Hyperlipidemia: will hold off on refilling atorvastatin for now, follow up with PCP Depression: states depression has driven substance abuse in past, denies SI right now, will resume patient's bupropion and paroxetine but unclear if ever taking aripiprazole, will defer this to PCP Cocaine, Opioid Use Disorder: follow up with PCP Nicotine??Use Disorder: follow up with PCP Objective Vital Signs?? Temperature: 98.3 DegF (09/13/22 07:44:00) Temperature Route: Oral (09/13/22 07:44:00) Pulse Rate:??100 bpm??High (09/13/22 09:17:00) Respiratory Rate: 18 br/min (09/13/22 09:17:00) Systolic Blood Pressure:??147 mm Hg??High (09/13/22 09:17:00) Diastolic Blood Pressure:??96 mm Hg??High (09/13/22 09:17:00) Blood pressure sites: Arm, right (09/13/22 07:44:00) Mean Arterial Pressure: 113 mm Hg (09/13/22 07:44:00) Pulse Pressure: 51 mm Hg (09/13/22 07:44:00) Oxygen Saturation: 99 % (09/13/22 07:44:00) Liters per Minute: 2 L/min (09/12/22 14:32:00) Mode of Delivery (Oxygen): Room air (09/13/22 07:44:00) Early Warning Score: 0 (09/13/22 09:21:21) ? . Physical Exam General Appearance: The patient is a??male and in NAD. Cardiovascular:No JVD, peripheral edema. Respiratory: ??Breathing comfortably on room air, no signs respiratory distress, speaks in complete sentences GI: Soft. Nontender and nondistended. Normal bowel sounds present throughout abdomen.?? MS: ??No edema or erythema in the lower extremities. No wounds seen on the feet. Peripheral sensation intact.?? Neuro: ??No slurred speech. ??Patient seen moving their upper and lower extremities independently. Psych: Alert and oriented x3. Appropriate and pleasant. Consultants None Patient Education Titles Oxycodone Oral Tablet?? Uncertain Causes of Chest Pain?? Abdominal Pain?? Alcoholism: Myths and Facts?? Alcohol Addiction?? Follow-Up Appointments Added Follow Up ?Time Frame ?Comments Real Tyesha?1 to 2 weeks?for the follow upthrombocytopeniaBP checkrestart of lipitorhigh bilirubincirrhosis seen on CT Patient Instructions You were seen here for abdominal pain likely due to alcohol withdrawal but could also be due to chronic inflammation of your pancreas You also had a CT scan of your abdomen that was suggesting a possible blood clot within the wall of the??aorta, which is the main large blood vessel coming from your heart You will need repeat imaging and follow up with vascular surgery I would encourage you to resuming taking all of the medications you had been on including your depression medications and blood pressure medications Please schedule an appointment with your PCP to follow up on some of your chronic issues including your blood pressure, cholesterol, blood counts, liver cirrhosis and one of your depression medications, abilify, which you have not taken for a very long time Post Discharge Care Discharge ?09/13/22 8:51:00 EST ?09/13/22 8:49:00 EST Discharge Prescriptions ?Written, ??09/13/22 8:51:00 EST ?Written, ??09/13/22 8:49:00 EST Results Discharge Labs BLOOD BANK Blood Type A Positive ()?? 09/12/2022 11:58 Antibody Screen Negative ()?? 09/12/2022 11:58 ?? BLOOD COUNT & DIFF WBC 8.0 k/mm3 ()?? 09/12/2022 11:58 RBC 4.88 m/mm3 ()?? 09/12/2022 11:58 Hgb 15.1 Gm/dL ()?? 09/12/2022 11:58 Hct 42.9 % ()?? 09/12/2022 11:58 MCV 87.9 femtoliters ()?? 09/12/2022 11:58 MCH 30.9 pg ()?? 09/12/2022 11:58 MCHC 35.2 g/dL ()?? 09/12/2022 11:58 Platelet Count 137 k/mm3 (Low)?? 09/12/2022 11:58 RDW-SD 42.2 femtoliters ()?? 09/12/2022 11:58 MPV 10.8 femtoliters ()?? 09/12/2022 11:58 Nucleated RBC (Automated) 0.0 #/100 WBC'S ()?? 09/12/2022 11:58 Abs. NRBC 0.0 k/mm3 ()?? 09/12/2022 11:58 Abs. Neut 5.6 k/mm3 ()?? 09/12/2022 11:58 Abs. Lymph 1.8 k/mm3 ()?? 09/12/2022 11:58 Abs. Lasalle 0.5 k/mm3 ()?? 09/12/2022 11:58 Abs. Eo 0.1 k/mm3 ()?? 09/12/2022 11:58 Abs. Baso 0.1 k/mm3 ()?? 09/12/2022 11:58 Neut % 69.5 % ()?? 09/12/2022 11:58 Lymph % 22.2 % ()?? 09/12/2022 11:58 Lasalle % 5.9 % ()?? 09/12/2022 11:58 Eos % 1.5 % ()?? 09/12/2022 11:58 Baso % 0.7 % ()?? 09/12/2022 11:58 Imm Gran 0.2 % ()?? 09/12/2022 11:58 Abs. Imm Gran 0.0 k/mm3 ()?? 09/12/2022 11:58 ?? CARDIAC Nt-Probnp 48 pg/mL ()?? 09/12/2022 11:58 High Sensitivity Troponin (HSTnT) 11 ng/L ()?? 09/12/2022 21:08 ?? CHEM GENERAL Sodium 138 mmol/L ()?? 09/12/2022 11:58 Potassium 3.9 mmol/L ()?? 09/12/2022 11:58 Chloride 103 mmol/L ()?? 09/12/2022 11:58 Bicarbonate Level 21 mmol/L (Low)?? 09/12/2022 11:58 Anion Gap 14 ()?? 09/12/2022 11:58 Glucose Level 146 mg/dL (High)?? 09/12/2022 11:58 Glucose, POC 124 mg/dL (High)?? 09/13/2022 08:08 BUN 6 mg/dL ()?? 09/12/2022 11:58 Creatinine-Blood 0.9 mg/dL ()?? 09/12/2022 11:58 Estimated GFR Creatinine 97 ML/MIN/1.73 M2 ()?? 09/12/2022 11:58 Calcium 9.7 mg/dL ()?? 09/12/2022 11:58 Protein, Total 6.8 Gm/dL ()?? 09/12/2022 11:58 Albumin 4.4 Gm/dL ()?? 09/12/2022 11:58 AG Ratio 1.8 ()?? 09/12/2022 11:58 Alkaline Phosphatase 111 units/L ()?? 09/12/2022 11:58 Lipase 18 units/L ()?? 09/12/2022 14:45 AST (SGOT) 21 units/L ()?? 09/12/2022 11:58 ALT (SGPT) 24 units/L ()?? 09/12/2022 11:58 Bilirubin, Total 2.0 mg/dL (High)?? 09/12/2022 11:58 Lactate 1.7 mmol/L ()?? 09/12/2022 12:03 ?? COAG INR 1.1 ()?? 09/12/2022 11:58 Protime (PT) 11.4 seconds ()?? 09/12/2022 11:58 APTT 24.8 seconds ()?? 09/12/2022 11:58 ? MISC. CHEMISTRY Hold Gel Top SPECIMEN DISCARDED AFTER 1 WEEK ()?? 09/12/2022 12:20 ? VIROLOGY Influenza A PCR NEGATIVE ()?? 09/12/2022 14:41 Influenza B PCR NEGATIVE ()?? 09/12/2022 14:41 RSV PCR NEGATIVE ()?? 09/12/2022 14:41 COVID-19 PCR Specimen Source NASAL ()?? 09/12/2022 14:41 COVID-19 PCR Result NEGATIVE ()?? 09/12/2022 14:41 ?(09/12/2022 12:[address] Angio Chest) IMPRESSION:? No aortic aneurysm or dissection. ?? Cirrhotic liver with suggestion of portal hypertension as evidenced by splenomegaly. Splenomegaly. ?? Nonobstructing 0.5 cm stone in the right kidney. ?? Mild colonic diverticulosis with no evidence of acute diverticulitis. [1] Patient case and management discussed with Dr. King ?? Cesar Coleman, DO Internal Medicine, PGY1 Pager #[phone] ?? 25??minutes spent on discharge [1]??CT Angio Chest; Talib Fairchild MD 09/12/2022 12:12 EST Vida Rodriguez LPN: PERFORM Event Display: Discharge/Transfer Note Hospital Authored Date: Nursing Discharge Note Entered On: 09/13/2022 9:27 EST Performed On: 09/13/2022 9:27 EST by Vida Rodriguez LPN Nursing Discharge Note 2 Discharge Time : 09/13/2022 9:27 EST Discharge Level of Care at Discharge : Home/Half-Way/Foster Care Patient Left Unit Via : Ambulatory Patient Accompanied Off Unit with : Responsible adult DC Instructions Provided & Signed by Pt : Yes Patient Understands D/C Instructions : Yes Patient Instructions Discharge Signed : Yes Did Pt have Specialty Bed or Wound Vac : No Vida Rodriguez LPN - 09/13/2022 9:27 Melanie Parmar RN: PERFORM Event Display: Discharge/Transfer Note Hospital Authored Date: Nursing Discharge Note Entered On: 09/13/2022 9:21 EST Performed On: 09/13/2022 9:20 EST by Melanie Abdi RN Nursing Discharge Note 2 Discharge Time : 09/13/2022 9:15 EST Discharge Level of Care at Discharge : Home/Half-Way/Foster Care Patient Left Unit Via : Ambulatory Patient Accompanied Off Unit with : Responsible adult DC Instructions Provided & Signed by Pt : Yes Patient Understands D/C Instructions : Yes Patient Instructions Discharge Signed : Yes Did Pt have Specialty Bed or Wound Vac : No Melanie Abdi RN - 09/13/2022 9:20 Vida Bolton LPN: PERFORM Event Display: Patient Education/Instruction Authored Date: [id number] Inpatient Adult Discharge Instructions [address] [address] Name: DANIELLE MASSEY : 1965 Visit: 09/12/2022 11:37:00 Current Date: 09/13/2022 08:57 Account: [id number] Inpatient Adult Discharge Instructions We would like [...] and their families. Surveys are administered by [employer] ?? If further treatment with your primary care physician or another doctor is recommended, it is important for you to keep the appointment. Call your primary care physician or return to the Emergency Department immediately if your condition worsens, fails to improve, or new symptoms develop. If you need to find a doctor, you can call [facility] [place] for a referral at [phone] or toll free at [phone]) or log in to [email or web address].. ?? You can view and manage your care through the patient portal or by using a health care annie of your choosing. [employer] is a website that allows you to securely view your medical information including your hospital discharge summary, office visit summaries, medications and follow-up visits. You can also request appointments, renew medications, and request access to your medical information using a health care annie of your choosing, or just ask a question. You can enroll at [email or web address] or register during your next office visit. You have been discharged from [facility], Patient Care Unit: D3B. If you have any questions regarding these instructions after you leave, please call us and we will be happy to assist you. [facility] Your Care Team Attending Physician Patel King MD Consulting Providers John Linn MD Discharging Providers Patel King MD Reason for Admission coming from home; cp/abd pain radiating to back starting yesterday, worse today. Off of all meds [id number]. Last use of illicit substances 3 days ago. Your Diagnosis Abdominal pain Cirrhosis Depression Hypertension Hyperlipidemia Alcohol dependence Cocaine dependence Opiate dependence Nicotine use disorder Chest pain Tests Performed Below is a partial list of the tests performed during your hospitalization. You may have had other tests and procedures not included in this list. Please discuss all test results with your provider. Comprehensive Metabolic Panel COVID-19, RSV, and Flu A/B, Rapid PCR GLUCOSE POC High??Sensitivity??Troponin T HOLD GEL TUBE INR Lactate Level LIPASE ProBNP PTT Troponin T, High Sensitivity Type and Screen CT Angio Abdomen CT Angio Chest Primary Care Provider Real Arambula DO Advance Directive Health Care Proxy on File Yes - Health Care Proxy No qualifying data available. Discharge Vitals Temperature: 98.3 DegF Height: 178 cm Pulse Rate:??100 bpm??High Weight: 96.5 kg Respiratory Rate: 18 br/min Body Mass Index:??30.46 kg/m2??Critical Systolic Blood Pressure:??147 mm Hg??High Body surface area: 2.18 Diastolic Blood Pressure:??96 mm Hg??High ?? Oxygen Saturation: 99 % ?? Studies Pending All tests and labs ordered during this hospital stay have been completed unless listed below. Pleasediscuss all pending results with your provider listed above in these instructions. ?? Add On Lab Order (Lab Add On Order) Basic Metabolic Panel Blood Culture Blood Culture #2 CBC w/ Differential COVID-19 (2019 Novel Coronavirus) PCR What to do next Instructions From Your Doctor Discharge Orders You Need to Schedule the Following Appointments Follow Up with??Real Arambula When??Within 1 to 2 weeks Why: for the follow up thrombocytopenia BP check restart of lipitor high bilirubin cirrhosis seen on CT Where: [address] [facility] [place] [address]- Business (1) Discharge Medications DANIELLE MASSEY :1965 Visit Date:09/12/2022 Medications: Please continue your medications until treatment is completed or stopped by your provider. Medications not listed below should be discontinued. Discuss any questions related to medications with your provider. What How Much When Instructions Next Dose New Oxycodone (oxyCODONE 5 mg oral tablet) 1 tab(s) Oral Every 6 hours as needed for Pain , Severe Duration: 3 Days Printed Prescription as needed follow as prescribe Changed Amlodipine (amLODIPine 5 mg oral tablet) 1 tab(s) Oral Daily Printed Prescription 09/14/22 Unchanged Atorvastatin (atorvastatin 40 mg oral tablet) 1 tab(s) Oral Daily at Bedtime 09/13/22 bedtime Unchanged BuPROpion (buPROPion 150 mg/ 24 hours (XL) oral tablet, extended release) 1 tab(s) Oral Every 24 hours Printed Prescription 09/14/22 Unchanged Cyclobenzaprine (cyclobenzaprine 10 mg oral tablet) 1 tab(s) Oral 3 times a day as needed for Other pain/ ??spasms/ ??body aches ?? as needed follow as prescribe Unchanged Pantoprazole (pantoprazole 40 mg oral delayed release tablet) 40 Milligram Oral Daily Printed Prescription 09/14/22 Unchanged Paroxetine (PARoxetine 40 mg oral tablet) 1 tab(s) Oral Daily in the morning Duration: 30 Days Printed Prescription 09/14/22 ?? What How Much When Comments Stop Taking Acamprosate (acamprosate 333 mg oral delayed release tablet) 2 tab(s) Oral 3 times a day Stop Taking Albuterol (albuterol CFC free 90 mcg/ inh inhalation aerosol) 2 puff(s) Inhalation 4 times a day as needed for as needed for wheezing Stop Taking Aripiprazole (ARIPiprazole 5 mg oral tablet) 1 tab(s) Oral Daily Stop Taking Finasteride (Proscar 5 mg oral tablet) 1 tab(s) Oral Daily Stop Taking Folic Acid (folic acid 1 mg oral tablet) 1 tab(s) Oral Daily Duration: 30 Days Stop Taking Furosemide (Lasix 40 mg oral tablet) 1 tab(s) Oral Daily Stop Taking HydrOXYzine (hydrOXYzine pamoate 25 mg oral capsule) 1 capsule Oral Every 6 hours as needed for Anxiety Stop Taking Nicotine (nicotine 14 mg/ 24 hr transdermal film, extended release) 1 patch(es) Topically Daily Stop Taking Pyridoxine (pyridoxine 50 mg oral tablet) 1 tab(s) Oral Daily Duration: 30 Days Stop Taking Spironolactone (spironolactone 25 mg oral tablet) 1 tab(s) Oral Daily Stop Taking Tamsulosin (tamsulosin 0.4 mg oral capsule) 1 capsule Oral Daily Duration: 30 Days Stop Taking Thiamine (thiamine 100 mg oral tablet) 1 tab(s) Oral Daily Duration: 30 Days Stop Taking umeclidinium (Incruse Ellipta 62.5 mcg/ inh inhalation powder) 1 inhalation Inhalation Every 24 hours Duration: 30 Days doses should be taken at least 24 hours apart ?? Test Results Below is a partial list of the most recent Laboratory test results done prior to this discharge. You may have had other tests and procedures not included in this list. Please discuss all test results with your provider. Comprehensive Metabolic Panel (09/12/2022) ???Sodium - 138 mmol/L???Potassium - 3.9 mmol/L???Chloride - 103 mmol/L???Bicarbonate Level - 21 mmol/L???Anion Gap - 14???Glucose Level - 146 mg/dL???BUN - 6 mg/dL???Creatinine-Blood - 0.9 mg/dL???Estimated GFR Creatinine - 97 ML/MIN/1.73 M2???Calcium - 9.7 mg/dL???Protein, Total - 6.8 Gm/dL???Albumin - 4.4 Gm/dL???AG Ratio - 1.8???Alkaline Phosphatase - 111 units/L???AST (SGOT) - 21 units/L???ALT (SGPT) - 24 units/L???Bilirubin, Total - 2.0 mg/dL COVID-19, RSV, and Flu A/B, Rapid PCR (09/12/2022) ???Influenza A PCR - NEGATIVE???Influenza B PCR - NEGATIVE???RSV PCR - NEGATIVE???COVID-19 PCR Specimen Source - NASAL???COVID-19 PCR Result - NEGATIVE GLUCOSE POC (09/13/2022) ???Glucose, POC - 124 mg/dL High??Sensitivity??Troponin T (09/12/2022) ???High Sensitivity Troponin (HSTnT) - 11 ng/L HOLD GEL TUBE (09/12/2022) ???Hold Gel Top - SPECIMEN DISCARDED AFTER 1 WEEK INR (09/12/2022) ???INR - 1.1???Protime (PT) - 11.4 seconds Lactate Level (09/12/2022) ???Lactate - 1.7 mmol/L LIPASE (09/12/2022) ???Lipase - 18 units/L ProBNP (09/12/2022) ???Nt-Probnp - 48 pg/mL PTT (09/12/2022) ???APTT - 24.8 seconds Troponin T, High Sensitivity (09/12/2022) ???High Sensitivity Troponin (HSTnT) - 11 ng/L Type and Screen (09/12/2022) ???Blood Type - A Positive???Antibody Screen - Negative Allergies (NKA means No Known Allergies) NKA Problems Active Problems??(23) Abdominal pain?? Alcohol dependence?? Alcohol withdrawal?? Alcoholic hepatitis?? Anxiety?? Benign prostatic hyperplasia?? Bilateral knee pain?? CHRONIC ISCHEMIC HEART DISEASE, UNSPECIFIED?? Cirrhosis?? Cocaine dependence?? Depression?? FamHx- cad?? Hyperlipidemia?? Hypertension?? Marijuana use?? Mild diastolic dysfunction?? Nicotine use disorder?? Obese class I?? Obese class II?? Opiate dependence?? Portal hypertensive gastropathy?? Prinzmetal angina?? SUBDURAL HEMORRHAGE?? Education Materials Below is the list of Educational Leaflet Providered with your Discharge Instructions. Oxycodone Oral Tablet?? Uncertain Causes of Chest Pain?? Abdominal Pain?? Alcoholism: Myths and Facts?? Alcohol Addiction?? Valuables and Belongings I fully understand and agree that [facility] accepts no responsibility for all my personal [...] to send valuables and belongings home. ?? No Valuables/Belongings: No valuables/belongings present Review of Valuable and Belonging List: With patient Date for Pt to Sign Valuables/Belongings: 09/12/22 16:39:00 ?? Other Discharge Information ? Pulmonary Rehab [...] are strongly encouraged to quit. Please call [employer] at [phone] or [phone] (3119) or log in to [email or web address] for referrals to smoking cessation programs. ?? The National Suicide Prevention Hotline is available 28/03 if you or someone you know needs to find areason to keep living. By calling 7-459-632-talk (4254) you'll be connected to a skilled, trained counselor at a crisis center in your area. INPATIENT DISCHARGE INSTRUCTIONS SIGNATURE PAGE NICOLASDANIELLE Location:[facility] Registration Date and Time:09/12/2022 11:37 EST Primary Care Physician: Real Arambula DO, I DANIELLE MASSEY, have received the above patient education materials/instructions and have verbalized understanding. If ambulance or transport services are being used I further acknowledge being given a choice of service. ?? If you need to contact me, please call me at this number: . Patient/Vp Platforms Name: Patient/Vp Platforms Signature: Relationship to Patient: Witness Name/Signature: Date: Patel King MD: SIGN, PERFORM, SIGN, VERIFY Event Display: Patient Education Handout Authored Date: [id number] Patel King MD: PERFORM Event Display: Patient Education Leaflets Authored Date: [id number] Oxycodone Oral Tablet ?? [id number] Oxycodone Oral Tablet Brands: Roxicodone Uses For pain. ?? Instructions This medicine may be taken with or without food. Swallow with a full glass (8 oz) of water unless your doctor gives you different instructions. Store at room temperature away from heat, light, and moisture. Do not keep in the bathroom. Please ask your doctor, nurse, or pharmacist how to discard unused medicines safely. To reduce constipation, eat high fiber foods, drink plenty of water and exercise. Avoid grapefruit juice while on this medicine. Drug interactions can change how medicines work or increase risk for side effects. Tell your healthcare providers about all medicines taken. Include prescription and aywg-ufv-vwvrues medicines, vitamins, and herbal medicines. Speak with your doctor or pharmacist before starting or stopping any medicine. Tell your doctor if symptoms do not get better or if they get worse. ?? Cautions This medicine has an opioid. Opioids help many people but may cause addiction, especially if used for a long time. The addiction risk is higher if you have a substance use disorder (overuse of or addiction to drugs or alcohol). Ask your doctor about the benefits and risks. Ask your doctor or pharmacist if you should have naloxone on hand to treat opioid overdose. Teach your family or household members about the signs of an opioid overdose and how to treat it. If you stop this medicine suddenly, after using it regularly for a long time, you may have withdrawal symptoms. Your doctor may ask you to slowly reduce your dose before stopping it. Tell your doctor right away if you notice any symptoms of withdrawal. Withdrawal symptoms can include unusual sweating, watering eyes, runny nose, chills, stomach pain, diarrhea, yawning, muscle aches, irritability, restlessness, anxiety, trouble sleeping, or thoughts of suicide. Tell your doctor and pharmacist if you ever had an allergic reaction to a medicine. Do not use the medication any more than instructed. This medicine may cause dizziness or fainting, especially after exercising or in hot weather. Be very careful when standing or sitting up quickly. If possible, avoid using with marijuana or other medicines that can cause dizziness or drowsiness. These include allergy/cold products, muscle relaxers, sleep aids, and pain relievers. Your ability to stay alert or to react quickly may be impaired by this medicine. Do not drive or operate machinery until you know how this medicine will affect you. Do not drink beverages with alcohol while on this medicine. This medicine passes into breast milk. Ask your doctor before . This medicine can hurt a new baby in the womb. If you become while on this medicine, tell your doctor immediately. Your doctor may switch you to a different medicine. This medicine should be used with caution in patients with breathing difficulties. Call your doctor right away if you notice slow or shallow breathing. Do not share this medicine with anyone who has not been prescribed this medicine. Some patients have serious side effects from this medicine. Ask your pharmacist to show you the information from the Food and Drug Administration (FDA) and discuss it with you. ?? Side Effects The following is a list of some common side effects from this medicine. Please speak with your doctor about what you should do if you experience these or other side effects. ??? decreased appetite ??? constipation ??? dizziness or drowsiness ??? lightheadedness ??? nausea and vomiting If you have any of the following side effects, you may be getting too much medicine. Please contactyour doctor to let them know about these side effects. ??? confusion ??? fainting ??? unusual or unexplained tiredness or weakness ??? difficulty or discomfort urinating Call your doctor or get medical help right away if you notice any of these more serious side effects: ??? agitated feeling or trouble sleeping ??? decreased awareness or responsiveness ??? breathing interruption during sleep ??? shallow, irregular breathing ??? hallucinations (unusual thoughts, seeingor hearing things that are not real) ??? seizures ??? severe stomach or bowel pain ??? weight loss A few people may have an allergic reaction to this medicine. Symptoms can include difficulty breathing, skin rash, itching, swelling, or severe dizziness. If you notice any of these symptoms, seek medical help quickly. ?? Extra Please speak with your doctor, nurse, or pharmacist if you have any questions about this medicine. ?? [email or web address] IMPORTANT NOTE: This document tells you briefly how to take your medicine, but it does not tell youall there is to know about it. Your doctor or pharmacist may give you other documents about your medicine. Please talk to them if you have any questions. Always follow their advice. There is a more complete description of this medicine available in [place]. Scan this code on your smartphone or tablet or use the web address below. You can also ask your pharmacist for a printout. If you have any questions, please ask your pharmacist. The display and use of this drug information is subject to Terms of Use. Copyright(c) 2021 [employer]. ?? [employer]. All rights reserved. This information is not intended as a substitute for professional medical care. Always follow your healthcare professional's instructions. ??Patel King MD: PERFORM Event Display: Patient Education Leaflets Authored Date: [id number] Uncertain Causes of Chest Pain ?? [id number] Uncertain Causes of Chest Pain Chest pain can happen for a number of reasons. Sometimes the cause can't be determined. If your??condition does not seem serious, and your pain does not appear to be coming from your heart, your healthcare provider may recommend watching it closely. Sometimes the signs of a serious problem take more time to appear. Many problems not related to your heart can cause chest pain. These include: ??? Musculoskeletal. Costochondritis is an inflammation of the tissues around the ribs that can occur from trauma or overuse injuries, or a strain of the muscles of the chest wall. ??? Respiratory. Pneumonia, collapsed lung (pneumothorax), or inflammation of the lining of the chest and lungs (pleurisy). ??? Gastrointestinal. Esophageal reflux, heartburn, ulcers, or gallbladder disease. ??? Anxiety and panic disorders ??? Nerve compression and inflammation ??? Rare problems such as aortic aneurysm or aortic dissection (a swelling of the large artery coming out of the heart or a tear in the wall of the artery), or pulmonary embolism (a blood clot in the lungs). Home care After your visit, follow these recommendations: ??? Rest today and avoid strenuous activity. ??? Take any prescribed medicine as directed. ??? Be aware of any recurrent chest pain and notice any changes ?? Follow-up care Follow up with your healthcare provider if you don't start to feel better within 24 hours, or as advised. ?? Call 911 Call 911 if any of these occur: ??? A change in the type of pain: if it feels different, becomes more severe, lasts longer, or begins to spread into your shoulder, arm, neck, jaw or back ??? Shortnessof breath or increased pain with breathing ??? Weakness, dizziness, or fainting ??? Rapid heartbeat ??? Crushing sensation in your chest ??? Coughing up more than a small amount of blood. ?? When to seek medical advice Call your healthcare provider right away if any of the following occur: ??? Cough with dark coloredsputum (phlegm) or small amount of blood ??? Fever of 100.4??F??(38??C) or higher, or as directed byyour healthcare provider ??? Swelling, pain or redness in one leg ?? Last Reviewed Date: 2021 ?? [employer]. All rights reserved. This information is not intended as a substitute for professional medical care. Always follow your healthcare professional's instructions. ??Christine GÓMEZ, Patel: PERFORM Event Display: Patient Education Leaflets Authored Date: [id number] Abdominal Pain ?? 56830 Abdominal Pain We understand that gender is a spectrum. We may use gendered terms to talk about anatomy and healthrisk. Please use this information in a way that works best for you and your provider as you talk about your care. Abdominal pain means pain in the stomach or belly area. Everyone has this kind of pain from time totime. In many cases it goes away on its own. Some types of abdominal pain can be from a serious problem. One example is appendicitis. So it???s important to know when to get help. Causes of abdominal pain There are many causes of abdominal pain. Common causes in adults include: ??? Constipation, diarrhea, or gas ??? Stomach and intestine inflammation from a virus or bacteria (gastroenteritis) ??? Stomach acid flowing back up into the esophagus (acid reflux) ??? Severe acid reflux, called gastroesophageal reflux disease (GERD) ??? A sore in the lining of the stomach or small intestine (peptic ulcer) ??? Inflammation of the gallbladder, liver,??or pancreas ??? Gallstones or kidney stones ??? Appendicitis? Intestinal blockage? An internal organ pushing through a muscle or other tissue (hernia) ??? Urinary tract infections ??? Menstrual cramps ??? Fibroids in the uterus ??? Ovarian cysts ???Pelvic inflammatory disease in women ??? Endometriosis ??? Crohn's disease ??? Ulcerative colitis ??? Irritable bowel syndrome ?? Diagnosing the cause of abdominal pain Your healthcare provider will give you a physical exam. This is to help find the cause of your pain. If needed, you'll have tests. Belly pain has many possible causes. So it may take a little time to find the reason for your pain. Give details about the type of pain you feel. Tell your provider if it's sharp or dull. Tell them where and when you feel the pain. Tell them what makes it better or worse. And tell them if you have other symptoms such as: ??? Fever ??? Tiredness ??? Upset stomach (nausea) ??? Vomiting ??? Changes in bathroom habits ??? Blood in the stool or black, tarry stool ??? Unexpected weight loss Tell your provider: ??? If you have a family history of stomach or intestinal problems or cancer ??? About your alcohol use and any illegal drug use ??? All medicines you take, both prescription and over the counter ??? What vitamins, herbs, and other supplements you take ?? Treating abdominal pain Some causes of pain need emergency medical care right away. These include appendicitis or a bowel blockage. Other problems can be treated with rest, fluids, or medicines. Your healthcare provider can give you instructions. You may need treatment or self-care based on what's causing your pain. If you have vomiting or diarrhea,??sip water or other clear fluids. When you're ready to eat solid foods again, start lightly. Eat small amounts of wmdb-dm-[id number], low-fat foods. These include applesauce, toast, or crackers. ?? Call 911 Call 911??right away if you: ??? Can???t pass stool and are vomiting ??? Are vomiting blood ??? Have bloody diarrhea or black, tarry diarrhea ??? Have chest, neck, or shoulder pain ??? Feel like you might pass out (faint) ??? Have pain in your shoulder blades and nausea ??? Have sudden, severe belly pain ??? Have new, severe??pain unlike any you've felt before ??? Have a belly that is rigid, hard, and hurts to touch ?? When to call the healthcare provider Call your healthcare provider right away if you have any of these: ??? Pain that's worse or not getting better ??? Bloating that's worse or not getting better ??? Diarrhea that's worse or not getting better ??? Fever of 100.4??F (38??C) or higher, or as advised ??? Weight loss for no reason ??? Continued lack of appetite ??? Blood in your stool ?? How to prevent abdominal pain Here are some tips to help prevent abdominal pain: ??? Eat smaller amounts of food at each meal. ??? Don't eat greasy, fried, or other high-fat foods.??? Don't eat foods that give you gas. ??? Exercise regularly. ??? Drink plenty of fluids. To help prevent GERD symptoms: ??? Quit smoking. ??? Reduce alcohol and foods that increase stomachacid. ??? Don't use aspirin or nonsteroidal anti- inflammatory drugs (NSAIDs). ??? Lose excess weight. ??? Finish eating at least 2 hours before you go to bed or lie down. ??? Raise the head of your bed. ?? Last Reviewed Date: 2021 ?? [employer]. All rights reserved. This information is not intended as a substitute for professional medical care. Always follow your healthcare professional's instructions. ?? Hospital Progress note Vannesa Sandoval RN: PERFORM, SIGN, VERIFY, MODIFY, SIGN Event Display: Progress Note Hospital Authored Date: [id number] Patient: DANIELLE MASSEY Age: 57 years Sex: Male : 1965 Associated Diagnoses: None Author: Vannesa Sandoval RN Findings Narrative/Incidental Admitted for ACS r/o. came to the floor from the ED. Alert and oriented x4. C/o of 10 midsternal chest pain with radiation to mid back. No assoicated symtpon reported. B/p 132/93, and rest of the vital signs are stable. EKG obtained and nitro subli offered nut pt declined. Stating that it nitro doesnot help his chest pain and also cause headaches. Requested morphine for his chest pain. paged regarding events. Ls are clear bilateral, no wheeze. Denies having SOB, or palpitation but reports of having occasional dizziness. Normal sinus rhythm on tele, no ectopy so far. Skin warm and dry, noted ascabs of right great toe and 3rd left toe. Pt stated the scabs are the result of wearing his boot without sock. Pedal pulse palpable with no edema noted in LE extremity. Scored 13 on CIWA scale, will reassaess per CIWA protocol. Oriented to floor and callbell within reach. Will continue to monitor foracute changes. CTA Abdominal vessels W contrast IV [facility] , CIS S: TRANSCRIBE Devorah GÓMEZ, Talib: VERIFY [place] Lon GÓMEZ: SIGN Event Display: Result: Authored Date: [id number] EXAMINATION: CT Angio Chest, CT Angio Abdomen INDICATION: Chest pain, concern for aortic dissection. TECHNIQUE: Spiral CTA of the chest was performed after rapid IV contrast administration without cardiac gating, triggered by an TOÑA on the main pulmonary artery. Images are formatted in multiple planesusing 2-D multiplanar and 3-D maximum intensity projection. 80 cc of Omnipaque 300 was administered i ntravenously. This study was performed without oral contrast. Weight-based protocol using automatic tube modulation was used to optimize exposure parameters. CTDIvol Body: 11.37 mGy, DLP Body: 754 mGy*cm. COMPARISONS: CT angiogram chest 04/28/2010. CT scan of 06/30/2022. ANGIOGRAPHIC FINDINGS: Mild calcified and noncalcified plaque of the aorta and its branches. No aortic dissection or aneurysm. Normal three vessel arch without branch vessel stenosis. Pulmonary arteries are normal in caliber. No evidence of central pulmonary embolism on this study performed without dedicated technique. Abdominal aorta: No aortic aneurysm or dissection. Celiac axis: Patent. Superior mesenteric artery: Patent. Right renal artery: Patent. Left renal artery: Patent. Inferior mesenteric artery: Patent. Visualized proximal common iliac arteries: Patent. NON-ANGIOGRAPHIC FINDINGS: Certified Adapted Physical Educator View Findings, Lines and Tubes: None. Trachea and Airways: Patent without evidence of tracheal or endobronchial lesion. Lungs and Pleura: Mild atelectasis of the dependent lungs. 0.3 cm subpleural nodule in the right posterior lung (image 136 series 605). This is unchanged from 04/28/2010 is likely benign. No effusion orpneumothorax. Mediastinum and rene: No mass or hematoma. No mediastinal or hilar lymphadenopathy. No esophageal abnormality. Partially imaged thyroid is unremarkable. Heart: Heart is normal in size. No pericardial effusion. Moderate coronary artery calcification. Chest Wall Soft Tissues: Mild symmetrical gynecomastia. Diaphragm: No significant abnormality. Liver: Similar nodular contour of the liver with a relatively shrunken left hepatic lobe. Gallbladder: Absent consistent with prior cholecystectomy. Bile ducts: No biliary ductal dilation. Spleen: Splenomegaly measuring up to 15.6 cm (image 113 series 607). Pancreas: Normal. Adrenal glands: Normal. Kidneys and ureters: 0.5 cm nonobstructing stone in the right kidney (image 581 series 605). No hydronephrosis or suspicious masses. Stomach, small bowel, and large bowel: Stomach is normal. Visualized small bowel is normal. Mild diverticulosis of the visualized large bowel with no evidence of acute diverticulitis. Peritoneum and retroperitoneum: No ascites or pneumoperitoneum. No omental or mesenteric lesions. Lymph nodes: No enlarged lymph nodes. Abdominal wall: Unremarkable. Bones: No acute abnormality. Chronic fracture deformities of the T7 and T9 vertebral bodies with moderate loss of height. These are unchanged since 06/30/2022. Similar mild superior endplate compression deformities of T12, L1 and L2. IMPRESSION: No aortic aneurysm or dissection. Cirrhotic liver with suggestion of portal hypertension as evidenced by splenomegaly. Splenomegaly. Nonobstructing 0.5 cm stone in the right kidney. Mild colonic diverticulosis with no evidence of acute diverticulitis. I have personally reviewed the images and I agree with this report. WSN: [id number] Ordering Physician: Bharati Conner Dictated By: Lon Huff MD Dictated Date/Time: 09/12/22 1:04 pm Reviewed By: Talib Fairchild MD Signed By: Talib Fairchild MD Signed Date/Time: 09/12/22 1:09 pm Transcribed By: KELLY Transcribed Date/Time: 09/12/22 12:38 pm CTA Chest vessels W contrast IV [facility] , CIS S: TRANSCRIBE Talib Fairchild MD: VERIFY Lon Huff MD: SIGN Event Display: Result: Authored Date: [id number] EXAMINATION: CT Angio Chest, CT Angio Abdomen INDICATION: Chest pain, concern for aortic dissection. TECHNIQUE: Spiral CTA of the chest was performed after rapid IV contrast administration without cardiac gating, triggered by an TOÑA on the main pulmonary artery. Images are formatted in multiple planesusing 2-D multiplanar and 3-D maximum intensity projection. 80 cc of Omnipaque 300 was administered i ntravenously. This study was performed without oral contrast. Weight-based protocol using automatic tube modulation was used to optimize exposure parameters. CTDIvol Body: 11.37 mGy, DLP Body: 754 mGy*cm. COMPARISONS: CT angiogram chest 04/28/2010. CT scan of 06/30/2022. ANGIOGRAPHIC FINDINGS: Mild calcified and noncalcified plaque of the aorta and its branches. No aortic dissection or aneurysm. Normal three vessel arch without branch vessel stenosis. Pulmonary arteries are normal in caliber. No evidence of central pulmonary embolism on this study performed without dedicated technique. Abdominal aorta: No aortic aneurysm or dissection. Celiac axis: Patent. Superior mesenteric artery: Patent. Right renal artery: Patent. Left renal artery: Patent. Inferior mesenteric artery: Patent. Visualized proximal common iliac arteries: Patent. NON-ANGIOGRAPHIC FINDINGS: Certified Adapted Physical Educator View Findings, Lines and Tubes: None. Trachea and Airways: Patent without evidence of tracheal or endobronchial lesion. Lungs and Pleura: Mild atelectasis of the dependent lungs. 0.3 cm subpleural nodule in the right posterior lung (image 136 series 605). This is unchanged from 04/28/2010 is likely benign. No effusion orpneumothorax. Mediastinum and rene: No mass or hematoma. No mediastinal or hilar lymphadenopathy. No esophageal abnormality. Partially imaged thyroid is unremarkable. Heart: Heart is normal in size. No pericardial effusion. Moderate coronary artery calcification. Chest Wall Soft Tissues: Mild symmetrical gynecomastia. Diaphragm: No significant abnormality. Liver: Similar nodular contour of the liver with a relatively shrunken left hepatic lobe. Gallbladder: Absent consistent with prior cholecystectomy. Bile ducts: No biliary ductal dilation. Spleen: Splenomegaly measuring up to 15.6 cm (image 113 series 607). Pancreas: Normal. Adrenal glands: Normal. Kidneys and ureters: 0.5 cm nonobstructing stone in the right kidney (image 581 series 605). No hydronephrosis or suspicious masses. Stomach, small bowel, and large bowel: Stomach is normal. Visualized small bowel is normal. Mild diverticulosis of the visualized large bowel with no evidence of acute diverticulitis. Peritoneum and retroperitoneum: No ascites or pneumoperitoneum. No omental or mesenteric lesions. Lymph nodes: No enlarged lymph nodes. Abdominal wall: Unremarkable. Bones: No acute abnormality. Chronic fracture deformities of the T7 and T9 vertebral bodies with moderate loss of height. These are unchanged since 06/30/2022. Similar mild superior endplate compression deformities of T12, L1 and L2. IMPRESSION: No aortic aneurysm or dissection. Cirrhotic liver with suggestion of portal hypertension as evidenced by splenomegaly. Splenomegaly. Nonobstructing 0.5 cm stone in the right kidney. Mild colonic diverticulosis with no evidence of acute diverticulitis. I have personally reviewed the images and I agree with this report. WSN: [id number] Ordering Physician: Bharati Conner Dictated By: Lon Huff MD Dictated Date/Time: 09/12/22 1:04 pm Reviewed By: Talib Fairchild MD Signed By: Talib Fairchild MD Signed Date/Time: 09/12/22 1:09 pm Transcribed By: KELLY Transcribed Date/Time: 09/12/22 12:38 pm Patient Care team information Care Team PersonnelName: Kassy Manuel RN Position: [facility] RN Member Role: Primary Care Nurse Name: Milton Sebastian RN Position: [facility] RN Member Role: Primary Care Nurse Name: Carissa Cueva RN Position: [facility] RN Member Role: Primary Care Nurse Name: Savanna Johnson RN Position: [facility] RN Member Role: Primary Care Nurse Name: Billie Davis NP Position: [facility] Associate Professional Member Role: Primary Care Nurse Address: Address: [address] [place] [id number]- Name: Cristina Reis Position: S Outreach Member Role: Lifetime Consulting Physician Name: Real Arambula DO Position: Reference Physician Member Role: PCP Address: Address: [address] [place] [id number]- Name: Eliane Liao RN Position: [facility] RN Member Role: Primary Care Nurse Name: Denise Velez RN Position: [facility] RN Supv Member Role: Primary Care Nurse Name: Estrella Lacy RN Position: [facility] RN Member Role: Primary Care Nurse Name: Janneth Wu RN Position: [facility] RN Member Role: Primary Care Nurse Name: Katie Mir Position: [facility] RN Member Role: Primary Care Nurse Name: Aiden Tripp RN Position: [facility] ED RN W/OE and Tasks Member Role: Primary Care Nurse Name: Louann Gonsales RN Position: [facility] RN Member Role: Primary Care Nurse Name: Milton Adan RN Position: [facility] RN Member Role: Primary Care Nurse Name: Sabrina Bennett Position: [facility] RN Member Role: Primary Care Nurse Name: Louise Yang RN Position: [facility] RN Member Role: Primary Care Nurse Name: Zoie Glynn RN Position: [facility] RN Member Role: Primary Care Nurse Name: Lucita Sheffield RN Position: [facility] RN Member Role: Primary Care Nurse Name: Apryl Armando RN Position: [facility] RN Member Role: Primary Care Nurse Name: Melanie Abdi RN Position: [facility] RN Member Role: Primary Care Nurse Name: Sobeida Kincaid RN Position: [facility] RN Member Role: Primary Care Nurse Name: Mustapha Rodarte RN Position: [facility] RN Member Role: Primary Care Nurse Name: Satya Harper RN Position: [facility] RN Member Role: Primary Care Nurse Address: Address: [address] [place] [address] Name: Jean Marie Delarosa RN Position: [facility] RN Supv Member Role: Primary Care Nurse Name: Jammie Rios RN Position: [facility] OB RN Member Role: Primary Care Nurse Name: Jaci De RN Position: [facility] OB RN Member Role: Primary Care Nurse Name: Erin Lombardo RN Position: [facility] RN Member Role: Primary Care Nurse Name: Alexia Wells RN Position: [facility] RN Member Role: Primary Care Nurse Name: Vida Rodriguez LPN Position: [facility] RN Member Role: Primary Care Nurse Name: Babs Parmar RN Position: [facility] RN Member Role: Primary Care Nurse Name: Trena Quintanilla RN Position: [facility] RN Member Role: Primary Care Nurse Name: Loren Morrison RN Position: [facility] Onco RN Member Role: Primary Care Nurse Name: Tabatha Shah RN Position: [facility] Hospital Tire Tester Member Role: Primary Care Nurse Name: Vicente Higuera RN Position: [facility] SN RN Member Role: Primary Care Nurse Name: Macy Buckley RN Position: [facility] RN Member Role: Primary Care Nurse Name: ElzbietaENCOM[facility] COUNTYLonny Attending Position: [facility] ED Medicine MD Name: Marjorie Guzman RN Position: [facility] ED RN W/OE and Tasks Member Role: Patient Care Provider Name: Chrissy Glass Position: [facility] ED TA [facility] Member Role: [employer] Care Team Related PersonsName: KOMAL CHEUNG Address: [place] [address] Name: ALEXIA NICHOLSON Address: home [address] [place] [id number] Name: HASEEB MASSEY Address: [place] [address]
--- OUTSIDE RECORDS SUMMARY | 2022-09-29 13:35 | XMS_ITS | Continuity of Care Document ---
:1965 Author Organization [facility] Address [address] [place] [address]- Care Team Providers Name Role Phone Vernon-Juanis Cook MD Primary Care Physician Encounter [facility] [facility] Date(s): 10/29/19 - 10/30/[address] [address]- [facility] Encounter Diagnosis Alcohol intoxication (Final) - 10/29/19 Discharge Disposition: A-D/C Home Attending Physician: Talib Lund DO Admitting Physician: Talib Lund DO Referring Physician: Not on Staff, Referring [...] Exam Date Time Procedure Performing Provider Status 10/29/19 7:54 PM Knee 1 or 2 Views Right Eliane Castillo; Auth ( Verified) Notes:(Knee 1 or 2 Views Right) Reason For Exam: with Pain;TraumaRESULT: Knee 1 or 2 Views Right Knee 1 or 2 Views Right, views Refer to EMR; Reason: Trauma; with Pain; Clinical Question(s): Fracture; Hx of Present Illness: pt tearful and agitated, report etoh dependancy and SI without a plan, repeatedly states i can care lessif I , I hate myself and everything I have done to myself and other , pt has hx of prior attempts, denies HI; Other Objective Findings: Aox3, answers appropiately. Resp even and unlabored, NAD. S COMPARISON: None. FINDINGS: There is no evidence of acute or healing fracture, dislocation or bone lesion. Severe joint space narrowing in the medial compartment and marginal osteophyte formation. Subchondral sclerosis noted. No evidence of joint effusion. IMPRESSION: No acute abnormality. WSN: [id number] Dictated By: Eugene Tuttle MD Dictated Date/Time: 10/29/19 8:00 pm Reviewed By: Eugene Tuttle MD Signed By: Eugene Tuttle MD Signed Date/Time: 10/29/19 8:00 pm Transcribed By: KELLY Transcribed Date/Time: 10/29/19 7:59 pm Vital Signs Most recent to oldest 1 2 3 4 [Reference Range]: Oxygen Saturation 98 % 96 % 94 % [94-100 %] (10/30/19 6:40 AM) (10/30/19 3:24 AM) (10/30/19 12:34 AM) Pulse Rate [55-90 bpm] 82 bpm 82 bpm 75 bpm 75 bp m (10/30/19 11:45 AM) (10/30/19 6:40 AM) (10/30/19 3:24 AM) (10/30/19 3:24 AM) Blood Pressure 142/80 mm Hg 150/86 mm Hg 142/84 mm Hg 142/84 mm Hg [90-138/55-84 mm Hg] *H* *H* *H* *H* (10/30/19 11:45 AM) (10/30/19 6:40 AM) (10/30/19 3:24 AM) (10/30/19 3:24 AM) Respiratory Rate [16-30 17 br/min 16 br/min 16 br/min 16 b r/min br/min] (10/30/19 11:45 AM) (10/30/19 6:40 AM) (10/30/19 3:24 AM) (10/30/19 3:24 AM) Temperature [96.8-100.4 98.6 DegF 97.5 DegF 97.5 DegF DegF] (10/30/19 6:40 AM) (10/30/19 3:24 AM) (10/30/19 3:24 AM) Mode of Delivery Room air Room air Room air (Oxygen) (10/30/19 6:40 AM) (10/30/19 3:24 AM) (10/30/19 12:34 AM) Blood pressure sites Arm, right Arm, right Arm, right (10/30/19 6:40 AM) (10/30/19 3:24 AM) (10/30/19 12:34 AM) Temperature Route Oral Oral Oral (10/30/19 6:40 AM) (10/30/19 3:24 AM) (10/30/19 3:24 AM) Social History Social History Type Response Smoking Status Current every day smoker; Ty pe: Cigarettes; Number of years: 40; entered on: 05/09/18 Sex Male
--- OUTSIDE RECORDS SUMMARY | 2022-09-29 13:35 | XMS_ITS | Continuity of Care Document ---
:1965 Author Organization [facility] Address [address] [place] [id number]- Care Team Providers Name Role Phone Charlotte-Joey GÓMEZ, Juanis Primary Care Physician Encounter [facility] [place] Date(s): 02/19/21 - 02/25/[address] [address] Discharge Disposition: A-Transfer SNF Attending Physician: Esthela Mcnulty DO Admitting Physician: Erika Short DO Referring Physician: [...] 10:28:00 EDT, Aerosol, Route to Pharmacy Electronically, [id number], [facility], 170, cm, 01/04/20 4:32:00 EDT,... Start Date: 01/04/20 Status: OrderedamLODIPine 5 mg oral tablet 5 mg, 1, tablet, By Mouth, Daily, # 30 tablet, Refills 0, Tot. Refills 0, Maintenance, 10/15/19 10:20:00 EST, Print Requisition, Dry Weight Start Date: 10/15/19 Status: OrderedamLODIPine 5 mg oral tablet 5 mg, Tablet, By Mouth, 02/25/21 9:00:00 EDT Start Date: 02/25/21 Stop Date: 02/25/21 Status: CompletedARIPiprazole 5 mg oral tablet 5 mg, 1, tablet, By Mouth, Daily, Refills 0, Maintenance, 07/23/20 9:01:00 EST, Partial fill upon patient request Start Date: 07/23/20 Status: Orderedaspirin 325 mg oral delayed release tablet 325 mg, 1, tablet, By Mouth, 2 times a day, PRN, # 60 tablet, Refills 0, Tot. Refills 0, Maintenance, for fever, 07/24/20 9:35:00 EST, Route to Pharmacy Electronically, [facility], Partial fill upon patient request, 177, [...] 0 Refills, Maintenance, 01/04/20 10:50:00 EDT, Powder, [facility], 170, cm, 01/04/20 4:32:00 [...] patient request Start Date: 07/24/20 Status: Orderednystatin 057068 u/ml oral suspension 6 mL = 600,000 [...] angina(Confirmed) Active SUBDURAL HEMORRHAGE(Confirmed) 03/10/09 Active Results Orders for Microbiology Reports Name Date Blood Culture #2 (BLOOD CULTURE 2) 02/19/21 Blood Culture 02/19/21 Microbiology Reports TEST:Blood Culture, Second Order STATUS:Auth (Verified) BODY SITE: SOURCE:Blood COLLECTED DATE/TIME:02/19/21 2:23 PMBlood Culture, Second Order SPECIMEN DESCRIPTION : BLOOD R HAND SPECIAL REQUESTS : NONE CULTURE : NO GROWTH 5 DAYS. REPORT STATUS : FINAL 02/24/2021TEST:Blood Culture STATUS:Auth (Verified) BODY SITE: SOURCE:Blood COLLECTED DATE/TIME:02/19/21 2:00 PMBlood Culture SPECIMEN DESCRIPTION : BLOOD L AC SPECIAL REQUESTS : NONE CULTURE : NO GROWTH 5 DAYS. REPORT STATUS : FINAL 02/24/2021adiology Reports Exam Date Time Procedure Performing Provider Status 02/19/21 2:21 PM Chest Portable Brandy Tony; Auth (Alice joyner) Notes:(Chest Portable) Reason For Exam: hypoxia, PUI;Shortness of BreathRESULT: Chest Portable Chest Portable Hx of Present Illness: pt from home, c o sob ongoing, dx with pneumonia 2 weeks ago, has had troublegetting to pharmacy for rx albuterol inhalers. denies chest pain. no cough. c o sore throat.; Reason: Shortness of Breath; hypoxia, PUI; Clinical Question(s): Pneumonia COMPARISON: 01/03/2020. FINDINGS: LINES AND TUBES: None. LUNGS AND PLEURA: Low lung volumes with mild basilar atelectasis. Hazy peripheral airspace opacities are present in the lungs bilaterally. No pleural effusion. No pneumothorax. HEART, MEDIASTINUM AND ANIA: Heart is normal in size. Normal upper mediastinal and hilar contour. BONES AND SOFT TISSUES: No acute abnormality. IMPRESSION: Hazy peripheral airspace opacities bilaterally, concerning for atypical/viral pneumonia, particularly in this clinical setting. Correlate with Covid 19 testing results. WSN: [id number] Ordering Physician: Mariluz Jimenez Dictated By: Esthela Gutiérrez MD Dictated Date/Time: 02/19/21 2:29 pm Reviewed By: Esthela Gutiérrez MD Signed By: Esthela Gutiérrez MD Signed Date/Time: 02/19/21 2:29 pm Transcribed By: KELLY Transcribed Date/Time: 02/19/21 2:27 pm Vital Signs Most recent to oldest 1 2 3 [Reference Range]: Weight 108.6 kg 108.6 kg (02/20/21 2:20 AM) (02/20/21 2:00 AM) Oxygen Saturation [94-100 %] 95 % 96 % 93 % (02/25/21 7:00 AM) (02/24/21 8:00 PM) *L* (02/24/21 2:00 PM ) Pulse Rate [55-90 bpm] 98 bpm 89 bpm 89 bpm *H* (02/24/21 8:00 PM) (02/24/21 2:00 PM) (02/25/21 7:00 AM) Blood Pressure [90-138/55-84 mm 117/77 mm Hg 117/77 mm Hg 115/84 mm Hg Hg] (02/25/21 8:41 AM) (02/25/21 7:00 AM) (02/24/21 8:0 0 PM) Respiratory Rate [16-30 br/min] 20 br/min 18 br/min 22 br/min (02/25/21 7:00 AM) (02/24/21 8:00 PM) (02/24/21 2:0 0 PM) Temperature [96.8-100.4 DegF] 97.8 DegF 98.3 DegF 97 .7 DegF (02/25/21 7:00 AM) (02/24/21 8:00 PM) (02/24/21 2:0 0 PM) Liters per Minute 1 L/min 1 L/min 2 L/min (02/24/21 7:00 AM) (02/23/21 8:00 PM) (02/23/21 5:0 0 PM) Mode of Delivery (Oxygen) Room air Room air Room a ir (02/25/21 7:00 AM) (02/24/21 8:00 PM) (02/24/21 2:0 0 PM) Blood pressure sites Arm, right Arm, left Arm, left (02/24/21 8:00 PM) (02/24/21 7:00 AM) (02/23/21 8:0 0 PM) Temperature Route Oral Oral Oral (02/25/21 7:00 AM) (02/24/21 8:00 PM) (02/24/21 2:0 0 PM) Weight Obtained Via Bed scale Bed scale (02/20/21 2:20 AM) (02/20/21 2:00 AM) Social History Social History Type Response Smoking Status Current every day smoker; Ty pe: Cigarettes; Number of years: 40; entered on: 05/09/18 Sex Male
--- OUTSIDE RECORDS SUMMARY | 2022-09-29 13:35 | XMS_ITS | Continuity of Care Document ---
:1965 Author Organization [facility] Address [address] [place] [id number]- Care Team Providers Name Role Phone Real Arambula DO Primary Care Physician Encounter [facility] R [id number] Date(s): 05/13/21 - 05/13/[address] [address]- Discharge Disposition: A-D/C Walkout Attending Physician: Not [...] 10:28:00 EDT, Aerosol, Route to Pharmacy Electronically, [id number], [facility], 170, cm, 01/04/20 4:32:00 EDT,... [...] 07/24/20 9:35:00 EST, Route to Pharmacy Electronically, [facility], Partial fill upon patient request, 177, [...] 0 Refills, Maintenance, 01/04/20 10:50:00 EDT, Powder, [facility], 170, cm, 01/04/20 4:32:00 EDT, [...] patient request Start Date: 07/24/20 Status: Orderednystatin 028277 u/ml oral suspension 6 mL = 600,000 [...] Exam Date Time Procedure Performing Provider Status 05/13/21 4:25 PM Chest 2 Views Frontal and Lat Manolo Scott (Verified) Notes:(Chest 2 Views Frontal and Lat) Reason For Exam: Chest Pain;Other:RESULT: Chest 2 Views Frontal and Lat PA and lateral chest dated May 13, 2021. Comparison films are from November 28, 2019 and February 19, 2021. HISTORY: Shortness of breath. FINDINGS: The cardiac silhouette is within normal limits for size. Central pulmonary vascular prominence and interstitial thickening are noted bilaterally. Some focal patchy airspace infiltrates are noted in the periphery of both lungs right greater than left. No pleural effusion is appreciated. There are stable compression deformities of L2, L1, T12, and T9. A compression deformity of T7 is new and represents a 75-80% loss of vertebral body height. IMPRESSION: Findings are suspicious for bilateral pneumonia. New T7 compression fracture. Examination 695[address]. Thank you for allowing me to participate in the care of this patient. WSN: [id number] Ordering Physician: Jakob Ansari Dictated By: Ted Serrano MD Dictated Date/Time: 05/13/21 4:31 pm Reviewed By: Ted Serrano MD Signed By: Ted Serrano MD Signed Date/Time: 05/13/21 4:31 pm Transcribed By: KELLY Transcribed Date/Time: 05/13/21 4:30 pm Vital Signs Most recent to oldest [Reference 1 2 3 Range]: Height 178 cm (05/13/21 3:51 PM) Weight 114 kg (05/13/21 3:51 PM) Oxygen Saturation [94-100 %] 98 % 100 % 95 % (05/13/21 3:51 PM) (05/13/21 3:38 PM) (05/13/21 3:20 P M) Pulse Rate [55-90 bpm] 96 bpm *H* (05/13/21 3:38 PM) Blood Pressure [90-138/55-84 mm 140/77 mm Hg Hg] *H* (05/13/21 3:38 PM) Respiratory Rate [16-30 br/min] 20 br/min (05/13/21 3:38 PM) Temperature [96.8-100.4 DegF] 98.7 DegF (05/13/21 3:38 PM) Liters per Minute 2 L/min 4 L/min 2 L/min (05/13/21 3:51 PM) (05/13/21 3:38 PM) (05/13/21 3:20 P M) Mode of Delivery (Oxygen) Nasal cannula Nasal cannula Nasal cannula (05/13/21 3:51 PM) (05/13/21 3:38 PM) (05/13/21 3:20 P M) Blood pressure sites Arm, right (05/13/21 3:38 PM) Temperature Route Oral (05/13/21 3:38 PM) Dry Weight 114 kg (05/13/21 3:51 PM) Social History Social History Type Response Smoking Status Current every day smoker; Ty pe: Cigarettes; Number of years: 40; entered on: 05/09/18 Sex Male
[2022-09-29 13:39] LABS: Influenza A PCR NEGATIVE (Negative); Influenza B PCR NEGATIVE (Negative); Resp Syncy Virus RNA Qual PCR NEGATIVE (Negative); SARS COV2 PCR INHOUSE NEGATIVE (Negative)
[2022-09-29 13:49] LABS: Alanine Aminotransferase 27 U/L (0-40); Albumin Level 3.7 g/dL (3.5-5.0); Alkaline Phosphatase 88 U/L (39-117); Anion Gap 13 (12-20); Aspartate Amino Transferase 24 U/L (5-37); Bilirubin Total 0.8 mg/dL (0.0-1.0); Blood Urea Nitrogen 13 mg/dL (9-16); Calcium 9.1 mg/dL (8.4-10.2); Carbon Dioxide 20 mmol/L (22-29); Chloride 108 mmol/L (96-108); Creatinine Clr Calc Pharmacy 100.1; Estimated Glomerular Filt Rate > 60; Glucose Random 107 mg/dL (60-115); Sodium 137 mmol/L (135-145); Total Protein 6.6 g/dL (6.5-8.0)
[2022-09-29 16:17] VITALS: BP 166/111; PULSE 102; RESP 18; TEMP 36.6; O2SAT 96
== END 2022-09-29 16:21 | disposition home or self-care (01) ==
PROVIDERS: Physician Assistant Medical; Emergency Provider Emergency Medicine; PCP Internal Medicine
DX: R07.9 Chest pain, unspecified (principal); Z20.822 Contact with and (suspected) exposure to COVID-19; Z20.828 Contact with and (suspected) exposure to other viral communicable diseases; E11.9 Type 2 diabetes mellitus without complications; I11.0 Hypertensive heart disease with heart failure; I50.9 Heart failure, unspecified; F17.210 Nicotine dependence, cigarettes, uncomplicated; Z79.02 Long term (current) use of antithrombotics/antiplatelets; Z79.899 Other long term (current) drug therapy
CPT/HCPCS: 0241U; 36415; 71046; 80053; 84484; 85025; 93005; 96361; 96374; 99284; 99285; J2270

== ENCOUNTER 2022-10-17 15:52 | Inpatient (IN) | payer MEDICARE, MEDICAID, SELFPAY ==
--- NOTE | ~2022-10-17 | CT_ITS ---
EXAMINATION: CTA CHEST PE STUDY, CT ABDOMEN AND PELVIS CLINICAL INFORMATION: Abdominal pain and elevated LFTs. CP, SOB, elevated dimer COMPARISON: 03/21/2022 CT scan of the chest TECHNIQUE: Prior to contrast administration, noncontrast localization images were obtained. After the administration of 100 mL of Omnipaque nonionic IV contrast, contiguous thin slice helical images were obtained through the thorax. Following this the examination was continued through the abdomen and then pelvis. Reformatted MIP images in the coronal and sagittal planes as well as thin slice reformatted images of coronal and sagittal planes were obtained at the acquisition workstation. This CT examination was performed using dose optimization techniques as appropriate, variously including the following: *Automated exposure control *Adjustment of mA and/or kV according to patient size (this includes techniques or standardized protocols for targeted exams where dose is matched to indication/reason for exam; i.e. extremities or head) *Use of iterative reconstruction technique DLP: 1070 mGy-cm. FINDINGS: CHEST: The bolus timing on this study was acceptable for visualization of the pulmonary arterial tree. There are no intraluminal pulmonary arterial filling defects present to suggest pulmonary embolism. The lungs are clear. No abnormal pulmonary nodules or masses are appreciated. No significant hilar or mediastinal adenopathy. There is no evidence of pleural effusion or pneumothorax. The heart is normal in size. No evidence of ventricular septal bowing or right heart strain. Vascular calcification within the aorta and coronary vessels. There is no pericardial effusion or pericardial thickening. ABDOMEN/PELVIS: Liver, Gallbladder and Biliary Tree: Diffuse fatty infiltration of the liver but no focal hepatic lesion nor biliary ductal dilatation. There is chronic atrophy of the left lobe the liver incidentally noted. The gallbladder surgically absent. Pancreas: Unremarkable. Spleen: Unremarkable. Adrenal Glands: Unremarkable. Kidneys and Ureters: The kidneys are normal in size, shape, and attenuation. No hydronephrosis or hydroureter. Tiny intrarenal calculi in the posterior midpole of the right kidney again noted. No perinephric stranding. Bladder: Unremarkable. Gastrointestinal Tract: A few scattered colonic diverticula are seen. No colonic wall thickening or pericolonic inflammatory change to suggest diverticulitis. Normal-appearing appendix in the right lower quadrant. Visualized small bowel unremarkable Abdominal Wall: No significant hernia is appreciated. Lymphovascular Structures: Mild vascular calcification within the aorta iliac system. No bulky adenopathy Pelvic Viscera: Unremarkable. Osseous Structures: Chronic compression deformities of L2, L1, T12 and T9 similar to the prior 03/21/[address]/CT abdomen pelvis wo IV con IMPRESSION: 1. No evidence for pulmonary emboli. No focal airspace disease. 2. Chronic appearing changes similar to the prior study. 3. Diffuse fatty infiltration of the liver with chronic changes similar to the prior study. No acute intra-abdominal process. VTE: Negative
[2022-10-17 15:55] VITALS: BP 146/70; PULSE 110; O2SAT 98
[2022-10-17 16:04] VITALS: BP 143/114; PULSE 106; RESP 20; TEMP 37; O2SAT 96; BMI 30.9
--- NOTE | 2022-10-17 16:10 | MHC.EDTECH ---
this pct assumed care of pt at 1610 ,blood drawn and blood culture and covid swab done and sent to lab,pt vitals sign taken .
--- NOTE | 2022-10-17 16:13 | ECG_ITS ---
Test Reason : chest pain Blood Pressure : / mmHG Vent. Rate : 112 BPM Atrial Rate : 112 BPM P-R Int : 160 ms QRS Dur : 074 ms QT Int : 326 ms P-R-T Axes : 041 025 002 degrees QTc Int : 444 ms Sinus tachycardia with occasional Premature ventricular complexes Otherwise normal ECG When compared with ECG of 29-SEP-2022 12:38, Premature ventricular complexes are now Present Referred By: Gemma Mandel Electronically Signed By:Yoni Treadwell
--- NOTE | 2022-10-17 16:36 | ED_ITS ---
HPI - Chest Pain General Chief Complaint: Chest Pain Stated Complaint: CHEST PAIN PER EMS Time Seen by Provider: 10/17/22 15:59 Source: patient Mode of arrival: EMS Limitations: no limitations History of Present Illness HPI narrative: Patient comes to the emergency room complaining of chest pain and shortness of breath that started approximately 4-1/2 hours ago. Patient states that he is homeless, lives in a motel. Patient was laying down when he started having chest pain and states that is gradually getting worse. Patient told his triage nurse that he drank 1 pt of vodka 1 hour prior to arrival, patient told me that his last drink was almost 24 hours ago. Also, patient states that he has been out of his medications for almost 2 months. Patient states that his insurance does cover his medications, but he has not been able to pick them up due to transportation issues. Patient denies any URI symptoms, denies nausea vomiting diarrhea. Related Data Home Medications Medication Instructions Recorded Confirmed bupropion HCl 300 mg 24 hr tablet, 1 tab PO DAILY 01/21/21 05/07/22 extended release clonidine HCl 0.1 mg tablet 1 tab PO BID 01/21/21 05/07/22 furosemide 40 mg tablet 1 tab PO DAILY 01/21/21 05/07/22 omeprazole 20 mg capsule,delayed 40 mg PO DAILY 01/21/21 05/07/22 release paroxetine HCl 40 mg tablet 1 tab PO DAILY 01/21/21 05/07/22 spironolactone 25 mg tablet 1 tab PO DAILY 01/21/21 05/07/22 tamsulosin 0.4 mg capsule 2 cap PO DAILY 01/21/21 05/07/22 atorvastatin 40 mg tablet 1 tab PO BEDTIME 05/14/21 05/07/22 finasteride 5 mg tablet 1 tab PO DAILY 05/14/21 05/07/22 blood sugar diagnostic (FreeStyle #10 ea 09/08/21 02/11/22 Lite Strips) docusate sodium 100 mg capsule 100 mg PO BID PRN constipation 09/08/21 05/07/22 folic acid 1 mg tablet 1 mg PO DAILY 09/08/21 05/07/22 hydroxyzine HCl 25 mg tablet 25 mg PO Q4H PRN Anxiety 09/08/21 05/07/22 lancets 30 gauge ([facility] #100 ea 09/08/21 02/11/22 Lancets) pen needle,diabetic dual safty 30 #100 ea 09/08/21 02/11/22 gauge x 3/16 (BD AutoShield Duo Pen Needle) bupropion HCl 150 mg tablet,12 hr 1 tab PO DAILY 10/12/21 05/07/22 sustained-release aripiprazole 5 mg tablet 5 mg PO DAILY 02/11/22 05/07/22 famotidine 20 mg tablet 1 tab PO BID 02/11/22 05/07/22 potassium chloride 10 mEq 10 meq PO DAILY 02/11/22 05/07/22 tablet,extended release Previous Rx's Medication Instructions Recorded albuterol sulfate 90 mcg/actuation 1 inh inhalation QID PRN shortness 05/19/21 aerosol inhaler (ProAir HFA) of breath or wheezing #8.5 grams acetaminophen 500 mg tablet 1,000 mg PO QID PRN fever or pain 03/21/22 (Tylenol Extra Strength) #14 tabs ondansetron 4 mg disintegrating 4 mg PO Q6H PRN nausea and 03/21/22 tablet vomiting #10 tabs Allergies Allergy/AdvReac Type Severity Reaction Status Date / Time No Known Allergies Allergy Verified 10/17/22 15:59 [No Known Allergies*] Review of Systems Review of Systems: Constitutional : No Weight loss, No Fever, No Chills, No Night Sweats, No Fatigue, No Malaise ENT/Mouth : No Hearing loss, No Ear Pain, No Nasal Congestion, No Sinus Pain, No Hoarseness, No sore throat, No Rhinorrhea, No Swallowing Difficulty Eyes: No Eye Pain, No Swelling, No Redness, No Foreign Body, No Discharge, No Vision Changes Cardiovascular : Complaining of chest pain, shortness of breath at rest, no palpitations Respiratory : No Cough, No Sputum, No Wheezing, No Smoke Exposure, complaining of Dyspnea Gastrointestinal : No Nausea, No Vomiting, No Diarrhea, No Constipation, No abdominal Pain, No Hematochezia, No Melena Genitourinary : no irregular bleeding, No Dysuria, No Urinary Frequency, No He maturia, No Urinary Incontinence, No Urgency, No Flank Pain, No Urinary Flow Changes, No Hesitancy Musculoskeletal : No joint pain, No Myalgias, No Joint Swelling Skin : No Skin Lesions, No rash Neuro : No Weakness, No Numbness, No Paresthesias, No Loss of Consciousness, No Dizziness, No Headache Psych : No Anxiety/Panic, No Depression, No SI/HI/AH/VH, No Social Issues, Heme/Lymph: No Bruising, No Bleeding,No Lymphadenopathy Endocrine : No Polyuria, No Polydipsia, No Temperature Intolerance [facility] Past Medical History Medical History Acute interstitial pneumonitis Alcohol use disorder, moderate, dependence Anxiety ARDS (adult respiratory distress syndrome) ARDS (adult respiratory distress syndrome) CHF (congestive heart failure) Cirrhosis of liver Cocaine abuse Community acquired pneumonia COPD (chronic obstructive pulmonary disease) COPD (chronic obstructive pulmonary disease) COPD exacerbation COPD exacerbation Diabetes ETOH abuse Hypertension Hypoxia ILD (interstitial lung disease) Interstitial lung disease Liver cirrhosis Obesity (BMI 35.0-39.9 without comorbidity) Obesity (BMI 35.0-39.9 without comorbidity) KATHYA (obstructive sleep apnea) KATHYA (obstructive sleep apnea) Pneumonia Pneumonia Pneumonitis Sepsis Smoker TBI (traumatic brain injury) Surgical History H/O brain surgery No significant past surgical history Family History Family History Other Lymphoma Social History Social History Household Members: None Housing: Homeless Housing Other:: Sober House Do you presently have visiting nurse or other home services: No Alcohol intake: current Alcohol intake frequency: 3 or more drinks per day Alcohol type: hard liquor Patient Tobacco Use Status: Never used Tobacco Tobacco use type: Cigarette Cigarette Packs Per Day: 0.5 Cigarettes Per Day: 7 Second Hand Smoke Exposure: Yes Substance Use Type: Crack/Cocaine and Heroin Advance Directives: Yes Advance Directives on File: Yes Advance Directives Date on File: 05/20/21 service: No Current occupational status: unemployed and disabled Physical Exam Vital Signs: Vital Signs: Last Vital Signs Temp 98.9 F 10/18/22 00:11 Pulse 116 H 10/18/22 00:11 Resp 24 H 10/18/22 00:11 BP 176/120 H 10/18/22 00:11 Pulse Ox 96 10/18/22 00:11 O2 Del Method 10/18/22 00:11 BMI result Body Mass Index 30.9 Const: Other: Appearance: Alert. Oriented X3. No acute distress. Eyes: Pupils equal, round and reactive to light. ENT: Pharynx normal. Neck: Normal inspection. Neck supple. No lymph nodes noted. No crepitus CVS: Normal heart rate and rhythm. Pulses normal. Normal S1 and S2 Respiratory: No respiratory distress. Breath sounds normal. No Wheezing. No rales Abdomen: Soft and nontender. No rigidity. No distention. Skin: Skin warm and dry. Normal skin color. Normal skin turgor. Extremities: No lower extremity edema. No Lacerations. No Rash Neuro: Oriented X 3. No motor deficit. No sensory deficit. Moving all extremities. No slurred speech. CN 2 through 12 grossly intact Psych: calm, cooperative, normal affect Course Course Course Narrative: Patient was given 325 mg of aspirin by EMS. No nitro. -on arrival to the emergency room, patient complained of ongoing chest pain, patient given p.o. nitroglycerin. -All of patient's labs pending Medications Administered Discontinued Medications Generic Name Dose Route Start Last Admin Trade Name Tateq PRN Reason Stop Dose Admin Acetaminophen 650 mg 10/17/22 16:34 10/17/22 17:00 Acetaminophen 325 Mg Tablet PO 10/17/22 16:35 650 mg ONCE ONE Administration Amlodipine Besylate 10 mg 10/18/22 01:17 10/18/22 01:26 Amlodipine Besylate 10 Mg Tablet PO 10/18/22 01:18 10 mg ONCE ONE Administration Protocol Sodium Chloride 2,000 mls @ 999 mls/hr 10/17/22 17:40 10/17/22 21:24 Ns IVCONT 10/17/22 19:40 Infused .Q2H1M ONE Infusion Ibuprofen 400 mg 10/18/22 01:16 10/18/22 01:25 Ibuprofen 400 Mg Tablet PO 10/18/22 01:17 400 mg ONCE ONE Administration Iohexol 100 ml 10/17/22 19:15 10/17/22 19:16 Iohexol 350 Mg/Ml 100 Ml Infus..Btl IV 10/17/22 19:16 100 ml ONCE ONE Administration Loperamide HCl 2 mg 10/17/22 20:17 10/17/22 21:09 Loperamide Hcl 2 Mg Capsule PO 10/17/22 20:18 2 mg ONCE ONE Administration Lorazepam 2 mg 10/18/22 01:17 10/18/22 01:25 Lorazepam 1 Mg Tablet PO 10/18/22 01:18 2 mg ONCE ONE Administration Nitroglycerin 0.4 mg 10/17/22 16:49 10/17/22 17:00 Nitroglycerin 0.4 Mg Tab.Subl SUBLINGUAL 10/17/22 16:50 Not Given ONCE ONE Ondansetron HCl 4 mg 10/17/22 19:43 10/17/22 19:59 Ondansetron Hcl 4 Mg/2 Ml Vial IVPUSH 10/17/22 19:44 4 mg ONCE ONE Administration Potassium Chloride 40 meq 10/17/22 17:41 10/17/22 18:10 Potassium Chloride Packet 20 Meq Packet PO 10/17/22 17:42 40 meq ONCE ONE Administration Tramadol HCl 50 mg 10/17/22 17:42 10/17/22 18:11 Tramadol Hcl 50 Mg Tablet PO 10/17/22 17:43 50 mg ONCE ONE Administration Medical Decision Making Medical Decision Making MDM Narrative: -patient's white blood cell count within normal limits, D-dimer positive 339, CTA for pulmonary embolism negative. -patient's T bili elevated 3.5. Patient does not have right upper quadrant pain, patient has history of cholecystectomy. LFTs elevation likely secondary to diffuse fatty infiltration, there is no focal hepatic lesion or by alerted duct dilation. Choledocholithiasis not suspected at this time. -on arrival, patient complaining of chest pain, patient was offered nitroglycerin p.o., patient declined, patient accepted Tylenol. However, patient states that the only thing that helps alleviate his pain is morphine. At this time, morphine not indicated. I was informed by the patient's nurse that the patient is sleeping comfortably. Only when somebody walks into the room, patient starts moving around and stating that he has chest pain. Otherwise, well patient has been observed when no one is in the room, patient is calm, in room is sleeping and lying down comfortably -01:20, patient states that he does have chest pain, states that he has back pain. Patient requesting medication. -also, I was informed by the patient's nurse the patient's blood pressure is elevated, 176/120, pulse 116. Pt is shaky, diaphoretic, complaining that he is withdrawing from alcohol. -I discussed the above-mentioned with the hospitalist Dr. Mancuso, patient admitted. Differential Diagnosis Differential Diagnoses: The differential diagnosis associated with the presentation includes (Alcohol withdrawal, substance abuse) Admission/Observation Consideration of admission/observation: Escalation of care including admission/observation considered Consult Healthcare Provider Management of the patient was discussed with: Hospitalist Lab Data MDM Lab Attestation statement: I reviewed the patient's lab results. 10/17/22 17:03 10/17/22 22:14 Labs: Lab Results 10/17/22 10/17/22 10/17/22 Range/Units 16:48 17:03 17:03 WBC 8.9 (4.8-10.8) X10*3/uL RBC 5.56 (4.60-5.80) X10*6/uL Hgb 16.9 (14.0-18.0) g/dl Hct 47.3 (42.0-52.0) % MCV 85.1 (80.0-98.0) fL MCH 30.4 (27.0-33.0) pg MCHC 35.7 (31.0-36.0) g/dl RDW 13.1 (11.0-16.0) % Plt Count 160 (160-400) X10*3/uL MPV 9.7 (9.4-12.4) fL Immature Gran % (Auto) 0.9 H (0.0-0.4) % Neut % (Auto) 58.6 (45-73) % Lymph % (Auto) 32.7 (20-40) % [place] % (Auto) 6.3 (2-11) % Eos % (Auto) 0.7 (0-4) % Baso % (Auto) 0.8 (0-2) % Lymph # (Auto) 2.9 (1.2-4.9) X10*3/uL [place] # (Auto) 0.6 (0.1-1.2) X10*3/uL Eos # (Auto) 0.1 (0.0-0.4) X10*3/uL Baso # (Auto) 0.1 (0.0-0.2) X10*3/uL Abs Immat Gran (auto) 0.08 H (0.00-0.03) X10*3/uL Absolute Neuts (auto) 5.2 (2.0-8.3) x10*3/uL Absolute Nucleated RBC 0.000 (0.0-0.012) X10*3/uL Nucleated RBC % (auto) 0.0 (0.0-0.2) /100WBC PT (10.0-13.1) SEC INR (0.9-1.1) D-Dimer High Sensitivty NG/ML Sodium 142 (135-145) mmol/L Potassium 3.2 L (3.3-5.1) mmol/L Chloride 104 (96-108) mmol/L Carbon Dioxide 19 L (22-29) mmol/L Anion Gap 22 H (12-20) BUN 8 L (9-16) mg/dL Creatinine 0.91 (0.5-1.4) mg/dL Estim Creat Clear Calc 99.4 Estimated GFR > 60 Random Glucose 168 H (60-115) mg/dL Lactic Acid (0.5-2.0) mmol/L Lactic Acid F/U @ 2Hr (0.5-2.0) mmol/L Calcium 9.0 (8.4-10.2) mg/dL Magnesium 1.7 (1.6-2.6) mg/dL Total Bilirubin 3.2 H (0.0-1.0) mg/dL AST 43 H (5-37) U/L ALT 39 (0-40) U/L Alkaline Phosphatase 126 H (39-117) U/L Troponin I High Sens 4.5 (<3.5-35.0) ng/L B-Natriuretic Peptide (<100) pg/mL Total Protein 7.3 (6.5-8.0) g/dL Albumin 4.0 (3.5-5.0) g/dL Lipase 21 (8-78) U/L Urine Opiates Screen (Not Detect) Urine Fentanyl Screen (Not Detect) Ur Barbiturates Screen (Not Detect) Ur Phencyclidine Scrn (Not Detect) Ur Amphetamines Screen (Not Detect) U Benzodiazepines Scrn (Not Detect) Urine Cocaine Screen (Not Detect) U Marijuana (THC) Screen (Not Detect) Ethyl Alcohol mg/dL COVID-19 ([facility]) (Negative) COVID-19 Clin Com 10/17/22 10/17/22 10/17/22 Range/Units 17:03 17:03 17:03 WBC (4.8-10.8) X10*3/uL RBC (4.60-5.80) X10*6/uL Hgb (14.0-18.0) g/dl Hct (42.0-52.0) % MCV (80.0-98.0) fL MCH (27.0-33.0) pg MCHC (31.0-36.0) g/dl RDW (11.0-16.0) % Plt Count (160-400) X10*3/uL MPV (9.4-12.4) fL Immature Gran % (Auto) (0.0-0.4) % Neut % (Auto) (45-73) % Lymph % (Auto) (20-40) % [place] % (Auto) (2-11) % Eos % (Auto) (0-4) % Baso % (Auto) (0-2) % Lymph # (Auto) (1.2-4.9) X10*3/uL [place] # (Auto) (0.1-1.2) X10*3/uL Eos # (Auto) (0.0-0.4) X10*3/uL Baso # (Auto) (0.0-0.2) X10*3/uL Abs Immat Gran (auto) (0.00-0.03) X10*3/uL Absolute Neuts (auto) (2.0-8.3) x10*3/uL Absolute Nucleated RBC (0.0-0.012) X10*3/uL Nucleated RBC % (auto) (0.0-0.2) /100WBC PT (10.0-13.1) SEC INR (0.9-1.1) D-Dimer High Sensitivty 339 NG/ML Sodium (135-145) mmol/L Potassium (3.3-5.1) mmol/L Chloride (96-108) mmol/L Carbon Dioxide (22-29) mmol/L Anion Gap (12-20) BUN (9-16) mg/dL Creatinine (0.5-1.4) mg/dL Estim Creat Clear Calc Estimated GFR Random Glucose (60-115) mg/dL Lactic Acid (0.5-2.0) mmol/L Lactic Acid F/U @ 2Hr (0.5-2.0) mmol/L Calcium (8.4-10.2) mg/dL Magnesium (1.6-2.6) mg/dL Total Bilirubin (0.0-1.0) mg/dL AST (5-37) U/L ALT (0-40) U/L Alkaline Phosphatase (39-117) U/L Troponin I High Sens (<3.5-35.0) ng/L B-Natriuretic Peptide 11 (<100) pg/mL Total Protein (6.5-8.0) g/dL Albumin (3.5-5.0) g/dL Lipase (8-78) U/L Urine Opiates Screen (Not Detect) Urine Fentanyl Screen (Not Detect) Ur Barbiturates Screen (Not Detect) Ur Phencyclidine Scrn (Not Detect) Ur Amphetamines Screen (Not Detect) U Benzodiazepines Scrn (Not Detect) Urine Cocaine Screen (Not Detect) U Marijuana (THC) Screen (Not Detect) Ethyl Alcohol 195 mg/dL COVID-19 ([facility]) (Negative) COVID-19 Clin Com 10/17/22 10/17/22 10/17/22 Range/Units 17:03 17:09 17:40 WBC (4.8-10.8) X10*3/uL RBC (4.60-5.80) X10*6/uL Hgb (14.0-18.0) g/dl Hct (42.0-52.0) % MCV (80.0-98.0) fL MCH (27.0-33.0) pg MCHC (31.0-36.0) g/dl RDW (11.0-16.0) % Plt Count (160-400) X10*3/uL MPV (9.4-12.4) fL Immature Gran % (Auto) (0.0-0.4) % Neut % (Auto) (45-73) % Lymph % (Auto) (20-40) % [place] % (Auto) (2-11) % Eos % (Auto) (0-4) % Baso % (Auto) (0-2) % Lymph # (Auto) (1.2-4.9) X10*3/uL [place] # (Auto) (0.1-1.2) X10*3/uL Eos # (Auto) (0.0-0.4) X10*3/uL Baso # (Auto) (0.0-0.2) X10*3/uL Abs Immat Gran (auto) (0.00-0.03) X10*3/uL Absolute Neuts (auto) (2.0-8.3) x10*3/uL Absolute Nucleated RBC (0.0-0.012) X10*3/uL Nucleated RBC % (auto) (0.0-0.2) /100WBC PT 13.5 H (10.0-13.1) SEC INR 1.2 H (0.9-1.1) D-Dimer High Sensitivty NG/ML Sodium (135-145) mmol/L Potassium (3.3-5.1) mmol/L Chloride (96-108) mmol/L Carbon Dioxide (22-29) mmol/L Anion Gap (12-20) BUN (9-16) mg/dL Creatinine (0.5-1.4) mg/dL Estim Creat Clear Calc Estimated GFR Random Glucose (60-115) mg/dL Lactic Acid 4.4 H* (0.5-2.0) mmol/L Lactic Acid F/U @ 2Hr (0.5-2.0) mmol/L Calcium (8.4-10.2) mg/dL Magnesium (1.6-2.6) mg/dL Total Bilirubin (0.0-1.0) mg/dL AST (5-37) U/L ALT (0-40) U/L Alkaline Phosphatase (39-117) U/L Troponin I High Sens (<3.5-35.0) ng/L B-Natriuretic Peptide (<100) pg/mL Total Protein (6.5-8.0) g/dL Albumin (3.5-5.0) g/dL Lipase (8-78) U/L Urine Opiates Screen (Not Detect) Urine Fentanyl Screen (Not Detect) Ur Barbiturates Screen (Not Detect) Ur Phencyclidine Scrn (Not Detect) Ur Amphetamines Screen (Not Detect) U Benzodiazepines Scrn (Not Detect) Urine Cocaine Screen (Not Detect) U Marijuana (THC) Screen (Not Detect) Ethyl Alcohol mg/dL COVID-19 ([facility]) Negative (Negative) COVID-19 Clin Com See Note 10/17/22 10/17/22 10/17/22 Range/Units 21:48 22:14 22:14 WBC (4.8-10.8) X10*3/uL RBC (4.60-5.80) X10*6/uL Hgb (14.0-18.0) g/dl Hct (42.0-52.0) % MCV (80.0-98.0) fL MCH (27.0-33.0) pg MCHC (31.0-36.0) g/dl RDW (11.0-16.0) % Plt Count (160-400) X10*3/uL MPV (9.4-12.4) fL Immature Gran % (Auto) (0.0-0.4) % Neut % (Auto) (45-73) % Lymph % (Auto) (20-40) % [place] % (Auto) (2-11) % Eos % (Auto) (0-4) % Baso % (Auto) (0-2) % Lymph # (Auto) (1.2-4.9) X10*3/uL [place] # (Auto) (0.1-1.2) X10*3/uL Eos # (Auto) (0.0-0.4) X10*3/uL Baso # (Auto) (0.0-0.2) X10*3/uL Abs Immat Gran (auto) (0.00-0.03) X10*3/uL Absolute Neuts (auto) (2.0-8.3) x10*3/uL Absolute Nucleated RBC (0.0-0.012) X10*3/uL Nucleated RBC % (auto) (0.0-0.2) /100WBC PT (10.0-13.1) SEC INR (0.9-1.1) D-Dimer High Sensitivty NG/ML Sodium (135-145) mmol/L Potassium (3.3-5.1) mmol/L Chloride (96-108) mmol/L Carbon Dioxide (22-29) mmol/L Anion Gap (12-20) BUN (9-16) mg/dL Creatinine (0.5-1.4) mg/dL Estim Creat Clear Calc Estimated GFR Random Glucose (60-115) mg/dL Lactic Acid (0.5-2.0) mmol/L Lactic Acid F/U @ 2Hr 4.1 H* (0.5-2.0) mmol/L Calcium (8.4-10.2) mg/dL Magnesium (1.6-2.6) mg/dL Total Bilirubin (0.0-1.0) mg/dL AST (5-37) U/L ALT (0-40) U/L Alkaline Phosphatase (39-117) U/L Troponin I High Sens 6.0 (<3.5-35.0) ng/L B-Natriuretic Peptide (<100) pg/mL Total Protein (6.5-8.0) g/dL Albumin (3.5-5.0) g/dL Lipase (8-78) U/L Urine Opiates Screen Not Detected (Not Detect) Urine Fentanyl Screen Not Detected (Not Detect) Ur Barbiturates Screen Not Detected (Not Detect) Ur Phencyclidine Scrn Not Detected (Not Detect) Ur Amphetamines Screen Not Detected (Not Detect) U Benzodiazepines Scrn Not Detected (Not Detect) Urine Cocaine Screen Not Detected (Not Detect) U Marijuana (THC) Screen Not Detected (Not Detect) Ethyl Alcohol mg/dL COVID-19 ([facility]) (Negative) COVID-19 Clin Com 10/17/22 Range/Units 22:14 WBC (4.8-10.8) X10*3/uL RBC (4.60-5.80) X10*6/uL Hgb (14.0-18.0) g/dl Hct (42.0-52.0) % MCV (80.0-98.0) fL MCH (27.0-33.0) pg MCHC (31.0-36.0) g/dl RDW (11.0-16.0) % Plt Count (160-400) X10*3/uL MPV (9.4-12.4) fL Immature Gran % (Auto) (0.0-0.4) % Neut % (Auto) (45-73) % Lymph % (Auto) (20-40) % [place] % (Auto) (2-11) % Eos % (Auto) (0-4) % Baso % (Auto) (0-2) % Lymph # (Auto) (1.2-4.9) X10*3/uL [place] # (Auto) (0.1-1.2) X10*3/uL Eos # (Auto) (0.0-0.4) X10*3/uL Baso # (Auto) (0.0-0.2) X10*3/uL Abs Immat Gran (auto) (0.00-0.03) X10*3/uL Absolute Neuts (auto) (2.0-8.3) x10*3/uL Absolute Nucleated RBC (0.0-0.012) X10*3/uL Nucleated RBC % (auto) (0.0-0.2) /100WBC PT (10.0-13.1) SEC INR (0.9-1.1) D-Dimer High Sensitivty NG/ML Sodium 139 (135-145) mmol/L Potassium 3.5 (3.3-5.1) mmol/L Chloride 105 (96-108) mmol/L Carbon Dioxide 18 L (22-29) mmol/L Anion Gap 20 (12-20) BUN 8 L (9-16) mg/dL Creatinine 0.84 (0.5-1.4) mg/dL Estim Creat Clear Calc 107.7 Estimated GFR > 60 Random Glucose 134 H (60-115) mg/dL Lactic Acid (0.5-2.0) mmol/L Lactic Acid F/U @ 2Hr (0.5-2.0) mmol/L Calcium 8.3 L D (8.4-10.2) mg/dL Magnesium (1.6-2.6) mg/dL Total Bilirubin 3.3 H (0.0-1.0) mg/dL AST 40 H (5-37) U/L ALT 34 (0-40) U/L Alkaline Phosphatase 111 (39-117) U/L Troponin I High Sens (<3.5-35.0) ng/L B-Natriuretic Peptide (<100) pg/mL Total Protein 6.5 (6.5-8.0) g/dL Albumin 3.7 (3.5-5.0) g/dL Lipase (8-78) U/L Urine Opiates Screen (Not Detect) Urine Fentanyl Screen (Not Detect) Ur Barbiturates Screen (Not Detect) Ur Phencyclidine Scrn (Not Detect) Ur Amphetamines Screen (Not Detect) U Benzodiazepines Scrn (Not Detect) Urine Cocaine Screen (Not Detect) U Marijuana (THC) Screen (Not Detect) Ethyl Alcohol mg/dL COVID-19 ([facility]) (Negative) COVID-19 Clin Com Independent Interpretation I performed an independent interpretation of an: CT Scan (My interpretation CT scan of the abdomen: No obstruction.) Radiology Impression Discussion of test interpretation with radiology: I have reviewed the radiologist's reading. Radiologist Impression: CHEST: The bolus timing on this study was acceptable for visualization of the pulmonary arterial tree. There are no intraluminal pulmonary arterial filling defects present to suggest pulmonary embolism. The lungs are clear. No abnormal pulmonary nodules or masses are appreciated. No significant hilar or mediastinal adenopathy.? There is no evidence of pleural effusion or pneumothorax. The heart is normal in size. No evidence of ventricular septal bowing or right heart strain. Vascular calcification within the aorta and coronary vessels. There is no pericardial effusion or pericardial thickening. ABDOMEN/PELVIS: Liver, Gallbladder and Biliary Tree: Diffuse fatty infiltration of the liver but no focal hepatic lesion nor biliary ductal dilatation. There is chronic atrophy of the left lobe the liver incidentally noted. The gallbladder surgically absent.? Pancreas: Unremarkable.? Spleen: Unremarkable.? Adrenal Glands: Unremarkable.? Kidneys and Ureters: The kidneys are normal in size, shape, and attenuation. No hydronephrosis or hydroureter. Tiny intrarenal calculi in the posterior midpole of the right kidney again noted. No perinephric stranding. ? Bladder: Unremarkable.? Gastrointestinal Tract: A few scattered colonic diverticula are seen. No colonic wall thickening or pericolonic inflammatory change to suggest diverticulitis. Normal-appearing appendix in the right lower quadrant. Visualized small bowel unremarkable? Abdominal Wall: No significant hernia is appreciated.? Lymphovascular Structures: Mild vascular calcification within the aorta iliac system. No bulky adenopathy? Pelvic Viscera: Unremarkable. Osseous Structures: Chronic compression deformities of L2, L1, T12 and T9 similar to the prior 03/21/2022 CT scan? CT/CT angio chest PE protocol IMPRESSION: 1.? No evidence for pulmonary emboli. No focal airspace disease. 2.? Chronic appearing changes similar to the prior study. 3.? Diffuse fatty infiltration of the liver with chronic changes similar to the prior study. No acute intra-abdominal process. ? VTE: Negative Critical Care Time Critical Care Time Critical Care Time: Yes Total Critical Care Time: 60 Attestation: I have personally provided critical care time. Time includes review of lab data, radiology results, discussion with consultants, and monitoring for potential decompensation. Intervention performed as documented. Discharge Plan Discharge Clinical Impression: Atypical chest pain, Alcohol withdrawal, Acute hypokalemia, Hypertension Patient Disposition: Admitted As Inpatient
[2022-10-17] MEDS: Acetaminophen 325 MG TABLET 650 MG PO (17:00)
--- NOTE | 2022-10-17 17:02 | PC.NURSE ---
pt a&ox3, hypertensive, sinus tach on monitor, tech at bedside obtaining labs, pt medicated for 9/10 chest pain, pt declined nitroglycerin d/t headaches. provider aware. pt resting quietly on side, no sob noted, speaking in full sentences.
[2022-10-17 17:10] LABS: MANUAL DIFF FLAG NO
--- OUTSIDE RECORDS SUMMARY | 2022-10-17 17:11 | XMS_ITS | Continuity of Care Document ---
:1965 Author Organization [facility] Address [address] [place] [address]- Care Team Providers Name Role Phone Real Arambula DO Primary Care Physician [phone] [place] [facility] [place] - 10/07/[address] [address] Discharge Disposition: A-D/C Home Attending [...] virus vaccine, inactivated 10/02/11 Given SARS-CoV-2 mRNA ([id number]) vax 03/31/22 Recorde d SARS-CoV-2 mRNA ([id number]) vax 12/24/21 Recorde d SARS-CoV-2 (COVID-19) mRNA [...] II opioid drug. Start Date: 09/13/22 Status: OrderedamLODIPine 5 mg oral tablet 5 mg, Tablet, By Mouth, 10/07/22 9:00:00 EST Start Date: 10/07/22 Stop Date: 10/07/22 Status: Completedaspirin 81 mg oral delayed release tablet 81 mg, 1, tablet, By Mouth, Daily, # 30 tablet, Refills 0, Tot. Refills 0, Maintenance, 10/07/22 9:43:00 EST, Do Not Route, Partial fill upon patient request if the prescription is for a schedule II opioid drug. Start Date: 10/07/22 Status: Orderedatorvastatin 40 mg oral tablet 1 tablet = 40 mg, By Mouth, Daily at bedtime, # 30 tablet, 3 Refills, Maintenance, 07/21/22 16:49:00EST, Tablet, [facility]/pharmacy #[id number], Partial fill upon patient request [...] 07/21/22 9:35:00 EST, Route to Pharmacy Electronically, [facility]/pharmacy #[id number], Partial fill upon patient request if the... Start Date: 07/21/22 Status: OrderedMorPHINE Inj 2 mg, Injection, IV Push Slowly, Every 4 hours, PRN for Pain , Moderate, Routine, 10/06/22 19:41:00 EST Start Date: 10/06/22 Stop Date: 10/07/22 Status: Discontinuedpantoprazole 40 mg oral delayed release tablet = [...] Confirmed Active Obese class I Confirmed Active Opiate dependence Confirmed Active Portal hypertensive Confirmed 12/29/17 Active gastropathy Prinzmetal angina Confirmed Active SUBDURAL HEMORRHAGE Confirmed 03/10/09 Active Results Radiology Reports Exam Date Time Procedure Performing Provider Status 10/06/22 2:58 PM Chest 2 Views Frontal and Lat Maria Luisa Chang; Auth (Verified) Notes:(Chest 2 Views Frontal and Lat) Reason For Exam: Chest Pain;Other:RESULT: Chest 2 Views Frontal and Lat Chest 2 Views Frontal and Lat Hx of Present Illness: Pt. endorses sharp CP in middle of chest radiating down both arms. Has had this type of chest pain before and pt. believes it is anxiety related. Given aspriin.; Reason: Other:; Chest Pain; Clinical Question(s): CHF COMPARISON: 07/18/2022 FINDINGS: No acute cardiopulmonary process. Wedge compression fractures in the lower thoracic and upper lumbar spine. IMPRESSION: No acute abnormality. WSN: [id number] Ordering Physician: Sanam Melendez Dictated By: Dariel Mosher MD Dictated Date/Time: 10/06/22 3:01 pm Reviewed By: Dariel Mosher MD Signed By: Dariel Mosher MD Signed Date/Time: 10/06/22 3:01 pm Transcribed By: KELLY Transcribed Date/Time: 10/06/22 3:00 pm Vital Signs Most recent to oldest 1 2 3 [Reference Range]: Height 177 cm 177 cm 177 cm (10/07/22 7:50 AM) (10/07/22 3:51 AM) (10/06/22 11:59 PM) Weight 98 kg (10/06/22 5:03 PM) Oxygen Saturation [94-100 100 % 99 % 98 % %] (10/07/22 7:50 AM) (10/07/22 3:51 AM) (10/06/22 11:59 PM) Pulse Rate [55-90 bpm] 81 bpm 75 bpm 81 bpm (10/07/22 7:50 AM) (10/07/22 3:51 AM) (10/06/22 11:59 PM) Body Mass Index [18.5-24.99 31.28 kg/m2 kg/m2] *>HHI* (10/06/22 5:03 PM) Blood Pressure 149/96 mm Hg 149/96 mm Hg 152/103 mm Hg [90-138/55-84 mm Hg] *H* *H* *H* (10/07/22 9:20 AM) (10/07/22 7:50 AM) (10/07/22 3:51 A M) Respiratory Rate [16-30 18 br/min 16 br/min 18 br/mi n br/min] (10/07/22 9:20 AM) (10/07/22 7:50 AM) (10/07/22 7:00 A M) Temperature [96.8-100.4 98.1 DegF 97.7 DegF 98.4 Deg F DegF] (10/07/22 7:50 AM) (10/07/22 3:51 AM) (10/06/22 11:59 PM) Mode of Delivery (Oxygen) Nasal cannula Room air Room a ir (10/07/22 7:50 AM) (10/07/22 3:51 AM) (10/06/22 11:59 PM) Blood pressure sites Arm, right Arm, right Arm, right (10/07/22 7:50 AM) (10/07/22 3:51 AM) (10/06/22 11:59 PM) Temperature Route Oral Oral Oral (10/07/22 7:50 AM) (10/07/22 3:51 AM) (10/06/22 11:59 PM) Dry Weight 98 kg (10/06/22 5:03 PM) Weight Obtained Via Patient/family stated (10/06/22 5:03 PM) Dry Weight Obtained Via Patient/family stated (10/06/22 5:03 PM) Social History Social History Type Response Smoking Status Current every day smoker; Ty pe: Cigarettes; Number of years: 40; entered on: 05/09/18 Sex Male Admission evaluation note Jorge Chapman MD: PERFORM, MODIFY Event Display: Admission Note Authored Date: Patient: ??DANIELLE MASSEY ? Age:??57 Years?Sex:??Male?:??1965?? CC: Chest pain ?? HPI: This is a 57 M with a history of polysubstance use (multiple admissions for alcohol, also uses heroin and crack), CAD s/p stent, depression s/p suicide attempts, and multiple presentatiosn with chest pain??most recently one month ago, now??presenting with chest pain. ?? He reports pain woke him from sleep, it felt like pressure and he also had sweats and nausea. The pain persisted and he came to the ED. He's had no recent fevers/chills, no abd pain/diarrhea. ?? He endorses using crack within the past week, but not last night/this AM. ?? In the ED: Vitals largely unremarkable, good oxygen saturation, pressures 160s over 100 Labs at baseline, troponins flat EKG nonischemic CXR unremarkable. He was given aspirin and morphine 2mg IV and admitted for ACS rule out. ?? ROS: As above ? PMH: Portal hypertensive gastropathy history of SUBDURAL HEMORRHAGE Alcohol dependence Alcoholic hepatitis Anxiety Cirrhosis Cocaine use Depression Hyperlipidemia Hypertension Mild diastolic dysfunction Obese class I Opiate dependence Prinzmetal angina ? MEDS: Amlodipine: 5 mg = 1 tablet, By Mouth, Daily Atorvastatin: 40 mg = 1 tablet, By Mouth, Daily at bedtime BuPROpion: 150 mg = 1 tablet, By Mouth, Every 24 hours Cyclobenzaprine: 10 mg = 1 tablet, By Mouth, 3 times a day, PRN (Other), pain/ spasms/ body aches Pantoprazole: 40 mg, By Mouth, Daily Paroxetine: 40 mg = 1 tablet, By Mouth, Daily in AM ? Exam: Temperature?98.1 ?(17:05) Systolic Blood Pressure?155 ?(17:05) Diastolic Blood Pressure?98 ?(17:05) Pulse?96 ?(17:05) SpO2?96 ?(17:05) Respiratory Rate?18 ?(17:05) GEN: Comfortable in bed HEENT: Moist membranes HEART: Warm extremities LUNGS: Breathing comfortably room air ABD: Soft, nontender : No henderson EXT: Warm, no edema NEURO: Alert, oriented x3 PSYCH: Calm and cooperative ? Assessment and Plan: 57 M with a history of polysubstance use (multiple admissions for alcohol, also uses heroin and crack), CAD s/p stent, depression s/p suicide attempts, and multiple presentatiosn with chest pain??most recently one month ago, now??presenting with chest pain. ?? # Chest pain # History of CAD I've looked back though the notes and cannot find evidence of prior NH. He does not have metoprolol or aspirin on his med list. Got aspirin in the ED. He was sleeping at the time that I evaluated him, but he informed me he is having ongoing pain. Overall, if this is cardiac chest pain this is most likely related to crack/cocaine use. - night monitor - discharge without stress test ?? # substance use - not interested in assistance with quitting ?? # HTN - cont amlidpine - cont statin ?? # Mood - cont paroxetine - cont buproprion ?? CODE - full DVT- compression DIET - regular EKG study Event Display: ECG 12-Lead Authored Date: Please click on pdf link to open report Event Display: ECG 12-Lead Authored Date: Ventricular Rate: 100 BPM Atrial Rate: 100 BPM P-R Interval: 158 ms QRS Duration: 84 ms Q-T Interval: 340 ms QTC Calculation(Bazett): 438 ms P Newfield: 30 degrees R Newfield: 11 degrees T Newfield: 24 degrees Normal sinus rhythm Normal ECG When compared with ECG of 12-SEP-2022 19:24, No significant change was found Confirmed by CHIO DELVALLE MD ([id number]) on 10/06/2022 5:17:00 PM [place]: CHIO DELVALLE MD Note Event Display: Cardiac Rhythm Strips Authored Date: Vida Rodriguez LPN: PERFORM Event Display: Discharge/Transfer Note Hospital Authored Date: Nursing Discharge Note Entered On: 10/07/2022 11:03 EST Performed On: 10/07/2022 10:45 EST by Vida Rodriguez LPN Nursing Discharge Note 2 Discharge Time : 10/07/2022 10:45 EST Discharge Level of Care at Discharge : Home/Alf/Foster Care Patient Left Unit Via : Wheelchair Patient Accompanied Off Unit with : Responsible adult DC Instructions Provided & Signed by Pt : Yes Patient Understands D/C Instructions : Yes Patient Instructions Discharge Signed : Yes Did Pt have Specialty Bed or Wound Vac : No Vida Rodriguez LPN - 10/07/2022 11:02 Lukas Lou MD, Juan Villasenor: PERFORM, MODIFY, MODIFY, MODIFY, MODIFY Event Display: Discharge/Transfer Note Hospital Authored Date: [id number] Patient: ??DANIELLE MASSEY ? Age:??57 Years?Sex:??Male?:??1965?? Patient Information Discharge Location: [facility] Primary Care Physician: Real Arambula DO Admit Date/Time: 10/06/22 12:58 Discharge Disposition Discharge Disposition: Home: No Services Discharge Diagnosis Prinzmetal Angina due to substance use Chest Pain CAD Hyperlipidemia Depression Hypertension _ Discharge Medications Amlodipine (amLODIPine 5 mg oral tablet)?1?tab(s)?5?Milligram?By Mouth?Daily Aspirin (aspirin 81 mg oral delayed release tablet)?81?Milligram?1?tablet?By Mouth?Daily Atorvastatin (atorvastatin 40 mg oral tablet)?1?tab(s)?40?Milligram?By Mouth?Dailyat bedtime BuPROpion (buPROPion 150 mg/24 hours (XL) oral tablet, extended release)?1?tab(s)?150?Milligram?By Mouth?Every 24 hours Cyclobenzaprine (cyclobenzaprine 10 mg oral tablet)?10?Milligram?1?tablet?By Mouth?3 times a day?as needed?pain/ spasms/ body aches?Other Pantoprazole (pantoprazole 40 mg oral delayed release tablet)?40?Milligram?By Mouth?Daily Paroxetine (PARoxetine 40 mg oral tablet)?40?Milligram?1?tablet?By Mouth?Daily in AM?for 30?Days ? Quality Measures Tobacco Use Treatment:? Medications Started None Medications Discontinued None Doses Changed None PCP Follow-Up/Heads-Up - Encourage discontinuing substance use - Can consider therapy for aiding in substance use cessation ?? Hospital Course 57 M with a history of polysubstance use (multiple admissions for alcohol, also uses heroin and crack), CAD s/p stent, depression s/p suicide attempts, and multiple presentation with chest pain??most recently one month ago, now??presenting with chest pain. He reports pain woke him from sleep, it felt l rolando pressure and he also had sweats and nausea. The pain persisted and he came to the ED. He's had no recent fevers/chills, no abd pain/diarrhea. ACS ruled out, likely Prinzmetal angina from drug use.?? Objective Assessment and Plan ?? Chest pain History of CAD Prinzmetal's angina due to drug use No??evidence of prior NH. He does not have metoprolol or aspirin on his med list. Got aspirin in theED. He is chest pain free at this point. Overall, if this is cardiac chest pain this is most likely related to crack/cocaine use. ?? Recommendations: - Encourage to stop drug use - Discharge without stress test as has known CAD ?? Chronic medical problems: ?? Substance use: not interested in assistance with quitting HTN: Continue amlodipine, Continue statin Depression: Continue paroxetine, Continue??bupropion ?? Vital Signs?? Temperature: 98.1 DegF (10/07/22 07:50:00) Temperature Route: Oral (10/07/22 07:50:00) Pulse Rate: 81 bpm (10/07/22 07:50:00) Respiratory Rate: 18 br/min (10/07/22 09:20:00) Systolic Blood Pressure:??149 mm Hg??High (10/07/22 09:20:00) Diastolic Blood Pressure:??96 mm Hg??High (10/07/22 09:20:00) Blood pressure sites: Arm, right (10/07/22 07:50:00) Mean Arterial Pressure: 114 mm Hg (10/07/22 07:50:00) Pulse Pressure: 53 mm Hg (10/07/22 07:50:00) Oxygen Saturation: 100 % (10/07/22 07:50:00) Mode of Delivery (Oxygen): Nasal cannula (10/07/22 07:50:00) Early Warning Score: 6 (10/07/22 09:22:21) ? Intake/Output? No Data Available ?? . Physical Exam General: Patient in no acute distress?? HEENT: Normocephalic, atraumatic, PERRLA, EOMI, moist mucous membranes. Respiratory: Bilateral equal air entry, clear to auscultation with no wheezes or crackles. Adequate respiratory rate and effort on room air.?? CVS: Regular rate and rhythm, S1 and S2 present, no murmurs, rubs or gallops. No JVD.?? GI: Soft, non tender, non distended, bowel sounds present, no organomegaly.?? Extremities: No cyanosis, pulses present and equal bilaterally. No edema noted b/l.?? Neuro: Alert and oriented x3. Cranial nerves II-XII grossly intact. Moving all extremities spontaneously. Normal tones, following simple commands.?? Derm: No signs of infection, skin is intact with no evidence of erythema, no purulent discharge. Psych: Normal mood and affect?? Consultants None Pending Results COVID-19 (2019 Novel Coronavirus) PCR ordered on 10/07/2022 Patient Education Titles Uncertain Causes of Chest Pain?? Follow-Up Appointments Added Follow Up ?Time Frame ?Comments Real Arambula?1 to 2 weeks?for the follow upthrombocytopenia and high bilirubin Patient Instructions You were seen here for chest pain likely due to recently using crack. Crack is a substance that can cause the arteries in your heart to close up, causing poor blood flow and, in severe cases, a heart attack. It does not look like you had??a heart attack this time, however we need you to strongly consider stopping the use of these substances. I would encourage you to resuming taking all of the medications you had been on including your depression medications and blood pressure medications.??Please schedule an appointment with your PCP to follow up on some of your chronic issues including your blood pressure, cholesterol, blood counts, liver cirrhosis and your substance use disorder. Thank you for trusting [facility] with your medical care! Post Discharge Care Discharge ?10/07/22 9:44:00 EST Discharge Prescriptions ?None, ??10/07/22 9:44:00 EST Home Health Face to Face ^HomeHealthFTF Results Discharge Labs BLOOD COUNT & DIFF WBC 6.6 k/mm3 ()?? 10/06/2022 13:56 RBC 4.85 m/mm3 ()?? 10/06/2022 13:56 Hgb 14.3 Gm/dL ()?? 10/06/2022 13:56 Hct 42.5 % ()?? 10/06/2022 13:56 MCV 87.6 femtoliters ()?? 10/06/2022 13:56 MCH 29.5 pg ()?? 10/06/2022 13:56 MCHC 33.6 g/dL ()?? 10/06/2022 13:56 Platelet Count 130 k/mm3 (Low)?? 10/06/2022 13:56 RDW-SD 42.2 femtoliters ()?? 10/06/2022 13:56 MPV 9.7 femtoliters ()?? 10/06/2022 13:56 Nucleated RBC (Automated) 0.0 #/100 WBC'S ()?? 10/06/2022 13:56 Abs. NRBC 0.0 k/mm3 ()?? 10/06/2022 13:56 Abs. Neut 4.4 k/mm3 ()?? 10/06/2022 13:56 Abs. Lymph 1.6 k/mm3 ()?? 10/06/2022 13:56 Abs. [place] 0.5 k/mm3 ()?? 10/06/2022 13:56 Abs. Eo 0.1 k/mm3 ()?? 10/06/2022 13:56 Abs. Baso 0.0 k/mm3 ()?? 10/06/2022 13:56 Neut % 66.9 % ()?? 10/06/2022 13:56 Lymph % 23.6 % ()?? 10/06/2022 13:56 [place] % 7.3 % ()?? 10/06/2022 13:56 Eos % 1.4 % ()?? 10/06/2022 13:56 Baso % 0.5 % ()?? 10/06/2022 13:56 Imm Gran 0.3 % ()?? 10/06/2022 13:56 Abs. Imm Gran 0.0 k/mm3 ()?? 10/06/2022 13:56 ?? CARDIAC High Sensitivity Troponin (HSTnT) 12 ng/L ()?? 10/06/2022 17:15 ? CHEM GENERAL Sodium 141 mmol/L ()?? 10/06/2022 13:56 Potassium 3.6 mmol/L ()?? 10/06/2022 13:56 Chloride 106 mmol/L ()?? 10/06/2022 13:56 Bicarbonate Level 24 mmol/L ()?? 10/06/2022 13:56 Anion Gap 11 ()?? 10/06/2022 13:56 Glucose Level 132 mg/dL (High)?? 10/06/2022 13:56 Glucose, POC 125 mg/dL (High)?? 10/06/2022 16:59 BUN 4 mg/dL (Low)?? 10/06/2022 13:56 Creatinine-Blood 1.0 mg/dL ()?? 10/06/2022 13:56 Estimated GFR Creatinine 89 ML/MIN/1.73 M2 ()?? 10/06/2022 13:56 Calcium 9.5 mg/dL ()?? 10/06/2022 13:56 Alkaline Phosphatase 97 units/L ()?? 10/06/2022 13:56 Lipase 25 units/L ()?? 10/06/2022 13:56 AST (SGOT) 22 units/L ()?? 10/06/2022 13:56 ALT (SGPT) 25 units/L ()?? 10/06/2022 13:56 Bilirubin, Total 1.8 mg/dL (High)?? 10/06/2022 13:56 ?? COAG APTT 25.0 seconds ()?? 10/06/2022 13:56 ? VIROLOGY COVID-19 by RT-PCR NEGATIVE ()?? 10/06/2022 13:20 ? Microbiology ?? COVID-19 (Novel Coronavirus), Rapid PCR?? Completed?? Source: Nasal Body Site: Nose Collected Dt/Tm: 10/06/2022 13:13 Last Updated Dt/Tm: 10/06/2022 14:38 ? 35 minutes spent on discharge ?? Patient seen and discussed with attending physician, ??Christine Lucio MD PGY1- Internal Medicine Pager #[phone] ?? Vida Rodriguez LPN: PERFORM Event Display: Patient Education/Instruction Authored Date: [id number] Inpatient Adult Discharge Instructions [address] [address] Name: DANIELLE MASSEY : 1965 Visit: 10/06/2022 12:58:00 Current Date: 10/07/2022 10:06 Account: [id number] Inpatient Adult Discharge Instructions We would like [...] and their families. Surveys are administered by [employer] ?? If further treatment with your primary care physician or another doctor is recommended, it is important for you to keep the appointment. Call your primary care physician or return to the Emergency Department immediately if your condition worsens, fails to improve, or new symptoms develop. If you need to find a doctor, you can call [facility] for a referral at [phone] or toll free at [phone] or log in to [email or web address].. ?? You can view and manage your care through the patient portal or by using a health care annie of your choosing. [employer] is a website that allows you to securely view your medical information including your hospital discharge summary, office visit summaries, medications and follow-up visits. You can also request appointments, renew medications, and request access to your medical information using a health care annie of your choosing, or just ask a question. You can enroll at [email or web address] or register during your next office visit. You have been discharged from [facility], Patient Care Unit: D3B. If you have any questions regarding these instructions after you leave, please call us and we will be happy to assist you. [facility] Your Care Team Attending Physician Christine GÓMEZ, Patel Discharging Providers Patel King MD Reason for Admission Pt. endorses sharp CP in middle of chest radiating down both arms. Has had this type of chest pain before and pt. believes it is anxiety related. Given aspriin. Tests Performed Below is a partial list of the tests performed during your hospitalization. You may have had other tests and procedures not included in this list. Please discuss all test results with your provider. Alk Phos ALT AST Basic Metabolic Panel CBC w/ Differential COVID-19 (Novel Coronavirus), Rapid PCR GLUCOSE POC High??Sensitivity??Troponin T Lipase PTT Total Bilirubin XR Chest 2 Views Frontal and Lat Primary Care Provider Real Arambula DO Advance Directive Health Care Proxy on File Yes - Health Care Proxy Patient has a Designated Caregiver: No Discharge Vitals Temperature: 98.1 DegF Height: 177 cm Pulse Rate: 81 bpm Weight: 98 kg Respiratory Rate: 18 br/min Body Mass Index:??31.28 kg/m2??Critical Systolic Blood Pressure:??149 mm Hg??High Body surface area: 2.2 Diastolic Blood Pressure:??96 mm Hg??High ?? Oxygen Saturation: 100 % ?? Studies Pending All tests and labs ordered during this hospital stay have been completed unless listed below. Pleasediscuss all pending results with your provider listed above in these instructions. ?? COVID-19 (2019 Novel Coronavirus) PCR What to do next Instructions From Your Doctor Discharge Orders You Need to Schedule the Following Appointments Follow Up with??Real Arambula When??Within 1 to 2 weeks Why: for the follow up thrombocytopenia and high bilirubin Where: [facility] [address]- Business (1) Discharge Medications DANIELLE MASSEY :1965 Visit Date:10/06/2022 Medications: Please continue your medications until treatment is completed or stopped by your provider. Medications not listed below should be discontinued. Discuss any questions related to medications with your provider. What How Much When Instructions Next Dose New Aspirin (aspirin 81 mg oral delayed release tablet) 1 tab(s) Oral Daily 10/08/22 Unchanged Amlodipine (amLODIPine 5 mg oral tablet) 1 tab(s) Oral Daily 10/08/22 Unchanged Atorvastatin (atorvastatin 40 mg oral tablet) 1 tab(s) Oral Daily at Bedtime 10/07/22 bedtime Unchanged BuPROpion (buPROPion 150 mg/ 24 hours (XL) oral tablet, extended release) 1 tab(s) Oral Every 24 hours follow as prescribe Unchanged Cyclobenzaprine (cyclobenzaprine 10 mg oral tablet) 1 tab(s) Oral 3 times a day as needed for Other pain/ ??spasms/ ??body aches ?? as needed follow as prescribe Unchanged Pantoprazole (pantoprazole 40 mg oral delayed release tablet) 40 Milligram Oral Daily 10/08/22 Unchanged Paroxetine (PARoxetine 40 mg oral tablet) 1 tab(s) Oral Daily in the morning Duration: 30 Days 10/08/22 Test Results Below is a partial list of the most recent Laboratory test results done prior to this discharge. You may have had other tests and procedures not included in this list. Please discuss all test results with your provider. Alk Phos (10/06/2022) ???Alkaline Phosphatase - 97 units/L ALT (10/06/2022) ???ALT (SGPT) - 25 units/L AST (10/06/2022) ???AST (SGOT) - 22 units/L Basic Metabolic Panel (10/06/2022) ???Sodium - 141 mmol/L???Potassium - 3.6 mmol/L???Chloride - 106 mmol/L???Bicarbonate Level - 24 mmol/L???Anion Gap - 11???Glucose Level - 132 mg/dL???BUN - 4 mg/dL???Creatinine-Blood - 1.0 mg/dL???Estimated GFR Creatinine - 89 ML/MIN/1.73 M2???Calcium - 9.5 mg/dL CBC w/ Differential (10/06/2022) ???WBC - 6.6 k/mm3???RBC - 4.85 m/mm3???Hgb - 14.3 Gm/dL???Hct - 42.5 %???MCV - 87.6 femtoliters???MCH - 29.5 pg???MCHC - 33.6 g/dL???Platelet Count - 130 k/mm3???RDW-SD - 42.2 femtoliters???MPV - 9.7 femtoliters???Nucleated RBC (Automated) - 0.0 #/100 WBC'S???Abs. NRBC - 0.0 k/mm3???Abs. Neut - 4.4 k/ mm3???Abs. Lymph - 1.6 k/mm3???Abs. [place] - 0.5 k/mm3???Abs. Eo - 0.1 k/mm3???Abs. Baso - 0.0 k/mm3???Neut % - 66.9 %???Lymph % - 23.6 %???[place] % - 7.3 %???Eos % - 1.4 %???Baso % - 0.5 %???Imm Gran - 0.3 %???Abs. Imm Gran - 0.0 k/mm3 COVID-19 (Novel Coronavirus), Rapid PCR (10/06/2022) ???COVID-19 by RT-PCR - NEGATIVE GLUCOSE POC (10/06/2022) ???Glucose, POC - 125 mg/dL High??Sensitivity??Troponin T (10/06/2022) ???High Sensitivity Troponin (HSTnT) - 12 ng/L Lipase (10/06/2022) ???Lipase - 25 units/L PTT (10/06/2022) ???APTT - 25.0 seconds Total Bilirubin (10/06/2022) ???Bilirubin, Total - 1.8 mg/dL Allergies (NKA means No Known Allergies) NKA Problems Active Problems??(22) Abdominal pain?? Alcohol dependence?? Alcohol withdrawal?? Alcoholic hepatitis?? Anxiety?? Benign prostatic hyperplasia?? Bilateral knee pain?? CHRONIC ISCHEMIC HEART DISEASE, UNSPECIFIED?? Cirrhosis?? Cocaine dependence?? Depression?? FamHx- cad?? Hyperlipidemia?? Hypertension?? Marijuana use?? Mild diastolic dysfunction?? Nicotine use disorder?? Obese class I?? Opiate dependence?? Portal hypertensive gastropathy?? Prinzmetal angina?? SUBDURAL HEMORRHAGE?? Education Materials Below is the list of Educational Leaflet Providered with your Discharge Instructions. Uncertain Causes of Chest Pain?? Valuables and Belongings I fully understand and agree that [facility] accepts no responsibility for all my personal [...] patient Date for Pt to Sign Valuables/Belongings: 10/06/22 17:11:00 ?? Other Discharge Information ? Pulmonary Rehab [...] are strongly encouraged to quit. Please call [facility] at [phone] or [phone] or log in to [email or web address] for referrals to smoking cessation programs. ?? The National Suicide Prevention Hotline is available 28/03 if you or someone you know needs to find areason to keep living. By calling 5-488-831-Akella (4843) you'll be connected to a skilled, trained counselor at a crisis center in your area. INPATIENT DISCHARGE INSTRUCTIONS SIGNATURE PAGE DANIELLE MASSEY Location:[facility] Registration Date and Time:10/06/2022 12:58 EST Primary Care Physician: Real Arambula DO, I SHILPA DANIELLE, have received the above patient education materials/instructions and have verbalized understanding. If ambulance or transport services are being used I further acknowledge being given a choice of service. ?? If you need to contact me, please call me at this number: . Patient/Journeyman Pressman Name: Patient/Journeyman Pressman Signature: Relationship to Patient: Witness Name/Signature: Date: Patel King MD: PERFORM, SIGN, VERIFY Event Display: Patient Education Handout Authored Date: [id number] Patel King MD: PERFORM Event Display: Patient Education Leaflets Authored Date: [id number] Uncertain Causes of Chest Pain ?? [id number] Uncertain Causes of Chest Pain Chest pain [...] leg ?? Last Reviewed Date: 2021 ?? 3066-1832 [employer]. All rights reserved. This information is not intended as a substitute for professional medical care. Always follow your healthcare professional's instructions. ??BHSPowerscribe , CIS S: TRANSCRIBE Dariel Mosher MD: VERIFY Event Display: Result: Authored Date: Chest 2 Views Frontal and Lat Hx of Present Illness: Pt. endorses sharp CP in middle of chest radiating down both arms. Has had this type of chest pain before and pt. believes it is anxiety related. Given aspriin.; Reason: Other:; Chest Pain; Clinical Question(s): CHF COMPARISON: 07/18/2022 FINDINGS: No acute cardiopulmonary process. Wedge compression fractures in the lower thoracic and upper lumbar spine. IMPRESSION: No acute abnormality. WSN: [id number] Ordering Physician: Sanam Melendez Dictated By: Dariel Mosher MD Dictated Date/Time: 10/06/22 3:01 pm Reviewed By: Dariel Mosher MD Signed By: Dariel Mosher MD Signed Date/Time: 10/06/22 3:01 pm Transcribed By: KELLY Transcribed Date/Time: 10/06/22 3:00 pm Hospital Progress note Reinier Chan: VERIFY, PERFORM, SIGN Event Display: Progress Note Hospital Authored Date: [id number] Patient: DANIELLE MASSEY Age: 57 years Sex: Male : 1965 Associated Diagnoses: None Author: Reinier Chan Findings Narrative/Incidental Admitted for acs r/o. Hypertensive, otherwise VSS. Patient complains of intermittent chest pain, no chest pain at this time. Patient ambulatory, tolerating food and water, no nausea or vomiting. Patient on tele, NSR, LAC in place. Admission complete, MD notified. Patient Care team information Care Team PersonnelName: Kassy Manuel RN Position: [facility] RN Member Role: Primary Care Nurse Name: Milton Sebastian RN Position: [facility] RN Member Role: Primary Care Nurse Name: Carissa Cueva RN Position: [facility] RN Member Role: Primary Care Nurse Name: Savanna Johnson RN Position: [facility] RN Member Role: Primary Care Nurse Name: Billie Davis NP Position: [facility] Associate Professional Member Role: Primary Care Nurse Address: Address: [address] [place] [address] Name: Cristina Reis Position: [facility] Outreach Member Role: Lifetime Consulting Physician Name: Real Arambula DO Position: Reference Physician Member Role: PCP Address: Address: [address] [place] [id number] Name: Eliane Liao RN Position: [facility] RN Member Role: Primary Care Nurse Name: Denise Velez RN Position: [facility] RN Supv Member Role: Primary Care Nurse Name: Estrella Lacy RN Position: [facility] RN Member Role: Primary Care Nurse Name: Janneth Wu RN Position: S RN Member Role: Primary Care Nurse Name: Katie Mir Position: S RN Member Role: Primary Care Nurse Name: Aiden Tripp RN Position: [facility] ED RN W/OE and Tasks Member Role: Primary Care Nurse Name: Louann Gonsales RN Position: [facility] RN Member Role: Primary Care Nurse Name: Milton Adan RN Position: [facility] RN Member Role: Primary Care Nurse Name: Sabrina Bennett Position: [facility] RN Member Role: Primary Care Nurse Name: Louise Yang RN Position: [facility] RN Member Role: Primary Care Nurse Name: Zoie Glynn RN Position: [facility] Vector Control Specialist Member Role: Primary Care Nurse Name: Lucita Sheffield RN Position: [facility] RN Member Role: Primary Care Nurse Name: Apryl Armando RN Position: [facility] RN Member Role: Primary Care Nurse Name: Melanie Abdi RN Position: [facility] RN Member Role: Primary Care Nurse Name: Sobeida Kincaid RN Position: [facility] RN Member Role: Primary Care Nurse Name: Mustapha Rodarte RN Position: [facility] RN Member Role: Primary Care Nurse Name: Satya Harper RN Position: [facility] RN Member Role: Primary Care Nurse Address: Address: [address] [place] [address] Name: Jean Marie Delarosa RN Position: [facility] RN Supv Member Role: Primary Care Nurse Name: Jammie Rios RN Position: [facility] OB RN Member Role: Primary Care Nurse Name: Jaci De RN Position: [facility] OB RN Member Role: Primary Care Nurse Name: Erin Lombardo RN Position: [facility] RN Member Role: Primary Care Nurse Name: Alexia Wells RN Position: [facility] RN Member Role: Primary Care Nurse Name: Vida Rodriguez LPN Position: [facility] RN Member Role: Primary Care Nurse Name: Babs Parmar RN Position: [facility] RN Member Role: Primary Care Nurse Name: Trena Quintanilla RN Position: [facility] RN Member Role: Primary Care Nurse Name: Loren Morrison RN Position: [facility] Onco RN Member Role: Primary Care Nurse Name: Tabatha Shah RN Position: [facility] [employer] Control Specialist Member Role: Primary Care Nurse Name: Kalen RNVicente Position: [facility] SN RN Member Role: Primary Care Nurse Name: Macy Buckley RN Position: [facility] RN Member Role: Primary Care Nurse Name: [facility]ENTER[facility]onny Attending Position: [facility] ED Medicine MD Name: Talib Silverio RN Position: [facility] ED RN W/OE and Tasks Member Role: Patient Care Provider Name: Norman Armstrong Position: [facility] ED [facility] Member Role: Recreational Programs Director Name: Sanam Palacios Position: [facility] Associate Professional Member Role: ED Physician Cyber Security Architect Address: Address: [address] [place] [address] [place] [address]- Care Team Related PersonsName: KOMAL CHEUNG Address: [place] [address] Name: BHARAT BECKY Address: home [address] [place] [address] Name: HASEEB MASSEY Address: [place] [address]
--- OUTSIDE RECORDS SUMMARY | 2022-10-17 17:12 | XMS_ITS | Continuity of Care Document ---
:1965 Author Organization [facility] Address [address] [place] [address]- Care Team Providers Name Role Phone Joss-Juanis Cook MD Primary Care Physician [phone] [place] [facility] [place]s): 10/12/22 - 10/13/[address] [address]- Encounter Diagnosis Alcohol intoxication (Final) - 10/12/22 Discharge Disposition: A-D/C Home Attending Physician: Nik Elaine MD Admitting Physician: Nik Elaine MD Referring Physician: Not on Staff, Referring [...] virus vaccine, inactivated 10/02/11 Given SARS-CoV-2 mRNA (nutkvbb-oabs-eysey) vax 03/31/22 Recorde d SARS-CoV-2 mRNA (rjykhcn-tjvr-kvhfp) vax 12/24/21 Recorde d SARS-CoV-2 (COVID-19) mRNA [...] Patient states I already got it Medications Acetaminophen Tablet 650 mg, Tablet, By Mouth, Once, STAT, 10/13/22 3:29:00 EST, Stop date 10/13/22 3:29:00 EST Start Date: 10/13/22 Stop Date: 10/13/22 Status: CompletedamLODIPine 5 mg oral tablet 1 tablet = 5 mg, By Mouth, Daily, # 30 tablet, 1 Refills, Maintenance, 09/13/22 8:48:00 EST, Tablet,Partial fill upon patient request if the prescription is for a schedule II opioid drug. Start Date: 09/13/22 Status: Orderedaspirin 81 mg oral delayed release tablet 81 [...] tablet, 3 Refills, Maintenance, 07/21/22 16:49:00EST, Tablet, [facility]/pharmacy #[id number], Partial fill upon patient [...] 07/21/22 9:35:00 EST, Route to Pharmacy Electronically, [facility]/pharmacy #[id number], Partial fill upon patient request if the... Start Date: 07/21/22 Status: Orderedpantoprazole 40 mg [...] Exam Date Time Procedure Performing Provider Status 10/12/22 10:[address] Abd/Pelvis W/ IV Contrast Only Sarah Mercedes ; Parish (Verified) Notes:(CT Abd/Pelvis W/ IV Contrast Only) Reason For Exam: LLQ abdominal pain;Other:RESULT: CT Abd/Pelvis W/ IV Contrast Only CT Abd/Pelvis W/ IV Contrast Only REASON: 57-year-old male with LLQ abdominal pain; Clinical Question(s): Pancreatitis; Hx of Present Illness: etoh, a pint of vodka. No food or drink all day. Endorses abd pain. incontinence.; TECHNIQUE: Spiral CT through the abdomen and pelvis with IV contrast formatted in 3 planes. 100 cc of Omnipaque 300 was administered intravenously. This study was performed without oral contrast. Weight-based protocol using automatic tube modulation was used to optimize exposure parameters. CTDIvol Body: 19.00 mGy, DLP Body: 1029 mGy*cm. COMPARISON: CT angiogram chest and abdomen 09/12/2022, CT abdomen and pelvis 06/30/2022. FINDINGS: Step Down Nurse View Findings, Lines and Tubes: None. Visualized Chest: Lung bases are clear. No pleural effusion. The heart is normal in size. No pericardial effusion. Diaphragm: Normal. Liver: Cirrhotic morphology. No suspicious lesions. Gallbladder: Absent consistent with prior cholecystectomy. Surgical clips again seen in the gallbladder fossa. Bile ducts: No biliary ductal dilation. Spleen: Splenomegaly again noted measuring 14 cm (CC) Pancreas: Normal. Adrenal glands: Normal. Kidneys and ureters: Nonobstructing stone in the RIGHT kidney upper pole region measuring 4 mm, unchanged in position. No hydronephrosis, obstructing stones, or suspicious masses. Bladder: Normal. Reproductive organs: Unremarkable. Stomach, small bowel, and large bowel: Small type I hiatal hernia. Small bowel loops are nondilated,no evidence of obstruction. Mild left-sided colonic diverticulosis without acute diverticulitis. Appendix: Normal (image 77 series 201). Peritoneum and retroperitoneum: No ascites or pneumoperitoneum. No omental or mesenteric lesions. Dropped clips in the posterior pelvis again noted. Lymph nodes: No enlarged lymph nodes. Blood vessels: Mild vascular calcifications but no aneurysm. No evidence of venous thrombosis. Smallportosystemic collateral vessels. Small portosystemic collateral vessels. Abdominal and pelvic wall: Small fat-containing LEFT inguinal hernia. Bones: No acute abnormality. Moderate compression deformity of T9 and T12 and mild compression deformity of L1 and L2, all chronic and unchanged. Moderate degenerative changes at the hip joints bilaterally. IMPRESSION: No acute inflammatory process in the abdomen and pelvis. Cirrhosis with mild splenomegaly. No ascites. No suspicious focal hepatic lesion. Nonobstructing renal stone in the right kidney measuring 4 mm. Cholecystectomy. Dropped surgical clips in the pelvis. Multiple old compression fractures in the thoracic and lumbar spine unchanged. I have personally reviewed the images and I agree with this report. WSN: [id number] Ordering Physician: Laurel Griffin Dictated By: Stanford Mejia DO Dictated Date/Time: 10/12/22 11:05 p Reviewed By: Greg Angeles MD Signed By: Greg Angeles MD Signed Date/Time: 10/12/22 11:10 pm Transcribed By: KELLY Transcribed Date/Time: 10/12/22 10:31 pm Vital Signs Most recent to oldest [Reference 1 2 3 Range]: Oxygen Saturation [94-100 %] 98 % 100 % 99 % (10/13/22 6:27 AM) (10/13/22 4:09 AM) (10/13/22 2:00 A M) Pulse Rate [55-90 bpm] 84 bpm 92 bpm 85 bpm (10/13/22 6:27 AM) *H* (10/13/22 2:00 AM ) (10/13/22 4:09 AM) Blood Pressure [90-138/55-84 mm 149/81 mm Hg 136/83 mm Hg 125/79 mm Hg Hg] *H* (10/13/22 4:09 AM) (10/13/22 2:00 AM ) (10/13/22 6:27 AM) Respiratory Rate [16-30 br/min] 22 br/min 20 br/min 21 br/min (10/13/22 6:27 AM) (10/13/22 4:30 AM) (10/13/22 4:09 A M) Temperature [96.8-100.4 DegF] 97.9 DegF (10/12/22 8:11 PM) Mode of Delivery (Oxygen) Room air Room air Room a ir (10/13/22 6:27 AM) (10/13/22 4:09 AM) (10/13/22 2:00 A M) Blood pressure sites Arm, right Arm, right Arm, right (10/13/22 6:27 AM) (10/13/22 4:09 AM) (10/13/22 2:00 A M) Temperature Route Oral (10/12/22 8:11 PM) Social History Social History Type Response Smoking Status Current every day smoker; Ty pe: Cigarettes; Number of years: 40; entered on: 05/09/18 Sex Male EKG study Event Display: EKG Authored Date: Note Laurel Griffin DO: PERFORM, SIGN, VERIFY Event Display: Patient Education Handout Authored Date: [id number] CT Abdomen and Pelvis W contrast IV BHSPowerscribe , CIS S: TRANSCRIBE Greg Angeles MD: VERIFY Stanford Mejia DO: SIGN Event Display: Result: Authored Date: [id number] CT Abd/Pelvis W/ IV Contrast Only REASON: 57-year-old male with LLQ abdominal pain; Clinical Question(s): Pancreatitis; Hx of Present Illness: etoh, a pint of vodka. No food or drink all day. Endorses abd pain. incontinence.; TECHNIQUE: Spiral CT through the abdomen and pelvis with IV contrast formatted in 3 planes. 100 cc of Omnipaque 300 was administered intravenously. This study was performed without oral contrast. Weight-based protocol using automatic tube modulation was used to optimize exposure parameters. CTDIvol Body: 19.00 mGy, DLP Body: 1029 mGy*cm. COMPARISON: CT angiogram chest and abdomen 09/12/2022, CT abdomen and pelvis 06/30/2022. FINDINGS: Step Down Nurse View Findings, Lines and Tubes: None. Visualized Chest: Lung bases are clear. No pleural effusion. The heart is normal in size. No pericardial effusion. Diaphragm: Normal. Liver: Cirrhotic morphology. No suspicious lesions. Gallbladder: Absent consistent with prior cholecystectomy. Surgical clips again seen in the gallbladder fossa. Bile ducts: No biliary ductal dilation. Spleen: Splenomegaly again noted measuring 14 cm (CC) Pancreas: Normal. Adrenal glands: Normal. Kidneys and ureters: Nonobstructing stone in the RIGHT kidney upper pole region measuring 4 mm, unchanged in position. No hydronephrosis, obstructing stones, or suspicious masses. Bladder: Normal. Reproductive organs: Unremarkable. Stomach, small bowel, and large bowel: Small type I hiatal hernia. Small bowel loops are nondilated,no evidence of obstruction. Mild left-sided colonic diverticulosis without acute diverticulitis. Appendix: Normal (image 77 series 201). Peritoneum and retroperitoneum: No ascites or pneumoperitoneum. No omental or mesenteric lesions. Dropped clips in the posterior pelvis again noted. Lymph nodes: No enlarged lymph nodes. Blood vessels: Mild vascular calcifications but no aneurysm. No evidence of venous thrombosis. Smallportosystemic collateral vessels. Small portosystemic collateral vessels. Abdominal and pelvic wall: Small fat-containing LEFT inguinal hernia. Bones: No acute abnormality. Moderate compression deformity of T9 and T12 and mild compression deformity of L1 and L2, all chronic and unchanged. Moderate degenerative changes at the hip joints bilaterally. IMPRESSION: No acute inflammatory process in the abdomen and pelvis. Cirrhosis with mild splenomegaly. No ascites. No suspicious focal hepatic lesion. Nonobstructing renal stone in the right kidney measuring 4 mm. Cholecystectomy. Dropped surgical clips in the pelvis. Multiple old compression fractures in the thoracic and lumbar spine unchanged. I have personally reviewed the images and I agree with this report. WSN: [id number] Ordering Physician: Laurel Griffin Dictated By: Stanford Mejia DO Dictated Date/Time: 10/12/22 11:05 p Reviewed By: Greg Angeles MD Signed By: Greg Angeles MD Signed Date/Time: 10/12/22 11:10 pm Transcribed By: KELLY Transcribed Date/Time: 10/12/22 10:31 pm Patient Care team information Care Team PersonnelName: Juanis Guillermo MD Position: [facility] Primary Care Physician Member Role: PCP Address: Address: [address] [place] [id number]- Name: Kassy Manuel RN Position: [facility] RN Member Role: Primary Care Nurse Name: Milton Sebastian RN Position: [facility] RN Member Role: Primary Care Nurse Name: Carissa Cueva RN Position: [facility] RN Member Role: Primary Care Nurse Name: Savanna Johnson RN Position: [facility] RN Member Role: Primary Care Nurse Name: Billie Davis NP Position: [facility] Associate Professional Member Role: Primary Care Nurse Address: Address: [address] [place] [id number]- Name: Cristina Reis Position: [facility] Outreach Member Role: Lifetime Consulting Physician Name: Eliane Liao RN Position: [facility] RN Member Role: Primary Care Nurse Name: Denise Velez RN Position: [facility] RN Supv Member Role: Primary Care Nurse Name: Estrella Lacy RN Position: [facility] RN Member Role: Primary Care Nurse Name: Janneth Wu RN Position: [facility] RN Member Role: Primary Care Nurse Name: Katie Mir Position: [facility] RN Member Role: Primary Care Nurse Name: Aiden Tripp RN Position: [facility] ED RN W/OE and Tasks Member Role: Primary Care Nurse Name: Louann Gonsales RN Position: [facility] RN Member Role: Primary Care Nurse Name: Milton Adan RN Position: [facility] RN Member Role: Primary Care Nurse Name: Sabrina Bennett Position: [facility] RN Member Role: Primary Care Nurse Name: Louise Yang RN Position: [facility] RN Member Role: Primary Care Nurse Name: Zoie Glynn RN Position: [facility] Hospital Sheeter Machine Operator Member Role: Primary Care Nurse Name: Lucita Sheffield RN Position: [facility] RN Member Role: Primary Care Nurse Name: Apryl Armando RN Position: [facility] RN Member Role: Primary Care Nurse Name: Melanie Abdi RN Position: [facility] RN Member Role: Primary Care Nurse Name: Sobeida Kincaid RN Position: [facility] RN Member Role: Primary Care Nurse Name: Mustapha Rodarte RN Position: [facility] RN Member Role: Primary Care Nurse Name: Satya Harper RN Position: [facility] RN Member Role: Primary Care Nurse Address: Address: [address] [place] [address] Name: Jean Marie Delarosa RN Position: [facility] RN Supv Member Role: Primary Care Nurse Name: Jammie Rios RN Position: [facility] OB RN Member Role: Primary Care Nurse Name: Jaci De RN Position: [facility] OB RN Member Role: Primary Care Nurse Name: Erin Lombardo RN Position: [facility] RN Member Role: Primary Care Nurse Name: Alexia Wells RN Position: [facility] RN Member Role: Primary Care Nurse Name: Vida Rodriguez LPN Position: [facility] RN Member Role: Primary Care Nurse Name: Babs Parmar RN Position: [facility] RN Member Role: Primary Care Nurse Name: Trena Quintanilla RN Position: [facility] RN Member Role: Primary Care Nurse Name: Loren Morrison RN Position: [facility] Onco RN Member Role: Primary Care Nurse Name: Tabatha Shah RN Position: [facility] Sheeter Machine Operator Member Role: Primary Care Nurse Name: Vicente Higuera RN Position: [facility] SN RN Member Role: Primary Care Nurse Name: Macy Buckley RN Position: [facility] RN Member Role: Primary Care Nurse [facility] Attending Position: [facility] ED Attendings Patient Name: Liz Carreno RN Position: [facility] ED RN W/OE and Tasks Member Role: Patient Care Provider Name: Lambert SintiaSavanna Position: S ED TA [facility] Member Role: Patient Care Provider Name: Nik Elaine MD Position: [facility] Resident Member Role: ED Attending Physician Address: Address: [address] [place] [address] [place] [address]- Care Team Related PersonsName: NICHOLE MASON Address: home [address] Name: KOMAL CHEUNG Address: [place] [address] Name: ALEXIA NICHOLSON Address: home [address] [place] [address] Name: HASEEB MASSEY Address: [place] [address]
[2022-10-17 17:17] LABS: Troponin-I High Sensitivity 4.5 ng/L (<3.5-35.0)
[2022-10-17 17:18] LABS: Basophils Absolute Auto 0.1 X10*3/uL (0.0-0.2); Basophils Percent Auto 0.8 % (0-2); Eosinophils Absolute Auto 0.1 X10*3/uL (0.0-0.4); Eosinophils Percent Auto 0.7 % (0-4); Hematocrit 47.3 % (42.0-52.0); Hemoglobin 16.9 g/dl (14.0-18.0); Imm Gran Abs Auto 0.08 X10*3/uL (0.00-0.03); Imm Gran Pct Auto 0.9 % (0.0-0.4); Lymphocytes Absolute Auto 2.9 X10*3/uL (1.2-4.9); Lymphocytes Percent Auto 32.7 % (20-40); Mean Corpuscular HGB Conc 35.7 g/dl (31.0-36.0); Mean Corpuscular Hemoglobin 30.4 pg (27.0-33.0); Mean Corpuscular Volume 85.1 fL (80.0-98.0); Mean Platelet Volume 9.7 fL (9.4-12.4); Monocytes Absolute Auto 0.6 X10*3/uL (0.1-1.2); Monocytes Percent Auto 6.3 % (2-11); Neutrophils Absolute Auto 5.2 x10*3/uL (2.0-8.3); Neutrophils Percent Auto 58.6 % (45-73); Platelet Count 160 X10*3/uL (160-400); Red Blood Count 5.56 X10*6/uL (4.60-5.80); Red Cell Distribution Width 13.1 % (11.0-16.0); White Blood Count 8.9 X10*3/uL (4.8-10.8)
[2022-10-17 17:21] VITALS: BP 156/93; PULSE 109; RESP 16; TEMP 36.8; O2SAT 96
[2022-10-17 17:22] LABS: Ethanol 195 mg/dL
[2022-10-17 17:26] LABS: Lactic Acid 4.4 mmol/L (0.5-2.0)
[2022-10-17 17:27] LABS: Alanine Aminotransferase 39 U/L (0-40); Alkaline Phosphatase 126 U/L (39-117); Anion Gap 22 (12-20); Aspartate Amino Transferase 43 U/L (5-37); Bilirubin Total 3.2 mg/dL (0.0-1.0); Blood Urea Nitrogen 8 mg/dL (9-16); Carbon Dioxide 19 mmol/L (22-29); Chloride 104 mmol/L (96-108); Creatinine Clr Calc Pharmacy 99.4; Estimated Glomerular Filt Rate > 60; Glucose Random 168 mg/dL (60-115); Lipase 21 U/L (8-78); Magnesium 1.7 mg/dL (1.6-2.6); Potassium 3.2 mmol/L (3.3-5.1); Sodium 142 mmol/L (135-145); Total Protein 7.3 g/dL (6.5-8.0)
[2022-10-17 17:32] LABS: D Dimer High Sensitivity 339 NG/ML
[2022-10-17 17:34] LABS: COVID-19 Test Negative (Negative); IDNOW Serial# 16C4AD1C
[2022-10-17 17:51] LABS: INTERNATIONAL NORM RATIO 1.2 (0.9-1.1); Prothrombin Time 13.5 SEC (10.0-13.1)
[2022-10-17] MEDS: Potassium Chloride Packet 20 MEQ PACKET 40 MEQ PO (18:10)
[2022-10-17] MEDS: traMADoL HCL 50 MG TABLET PO (18:11)
--- NOTE | 2022-10-17 18:24 | PC.NURSE ---
pt medicated per provider order w PO medication, this nurse unable to obtain IV access suitable for CTA, charge out clerk to attempt access.
--- NOTE | 2022-10-17 18:45 | PC.NURSE ---
20G IV placed right upper arm/chest, pt to CT for CTA.
[2022-10-17 19:09] LABS: Reflex Lactate? Lactic Acid Added
[2022-10-17] MEDS: 0.9 % Sodium Chloride 2,000 ML 999 ML IVCONT (19:10)
[2022-10-17] MEDS: iohexoL 350 MG/ML 100 ML INFUS..BTL IV (19:16)
--- NOTE | 2022-10-17 19:17 | PC.NURSE ---
pt returned to room from CT, 2L of NS running per provider order, pt reporting nausea. provider notified.
[2022-10-17 19:29] LABS: B Type Natriuretic Peptide 11 pg/mL (<100)
--- NOTE | 2022-10-17 19:43 | PC.NURSE ---
redrawn lactic held due to late starting of IV flds, provider aware, ok'd 2nd trop and lactic when fluids finish.
[2022-10-17] MEDS: ondansetron HCL 4 MG/2 ML VIAL IVPUSH (19:59)
[2022-10-17 20:00] VITALS: PULSE 89; RESP 20
[2022-10-17] MEDS: Loperamide HCl 2 MG CAPSULE PO (21:09)
--- NOTE | 2022-10-17 21:27 | PC.NURSE ---
ivf complete, tech to bedside for repeat labs, pt medicated per provider order for diarrhea.
[2022-10-17 21:28] VITALS: BP 167/107; PULSE 99; RESP 17; TEMP 36.7; O2SAT 93
[2022-10-17 22:11] LABS: Amphetamine Screen Urine Not Detected (Not Detect); Barbiturates, Urine Not Detected (Not Detect); Benzodiazepines Screen Urine Not Detected (Not Detect); Cannabinoid Screen Urine Not Detected (Not Detect); Cocaine Screen Urine Not Detected (Not Detect); Fentanyl, urine Not Detected (Not Detect); Opiate Screen Urine Not Detected (Not Detect); Phencyclidine Screen Urine Not Detected (Not Detect)
[2022-10-17 22:53] LABS: ~Lactic Acid-LAB USE ONLY 4.1 mmol/L (0.5-2.0)
[2022-10-17 22:54] LABS: Alanine Aminotransferase 34 U/L (0-40); Albumin Level 3.7 g/dL (3.5-5.0); Alkaline Phosphatase 111 U/L (39-117); Anion Gap 20 (12-20); Aspartate Amino Transferase 40 U/L (5-37); Bilirubin Total 3.3 mg/dL (0.0-1.0); Blood Urea Nitrogen 8 mg/dL (9-16); Calcium 8.3 mg/dL (8.4-10.2); Carbon Dioxide 18 mmol/L (22-29); Chloride 105 mmol/L (96-108); Creatinine Clr Calc Pharmacy 107.7; Estimated Glomerular Filt Rate > 60; Glucose Random 134 mg/dL (60-115); Potassium 3.5 mmol/L (3.3-5.1); Sodium 139 mmol/L (135-145); Total Protein 6.5 g/dL (6.5-8.0)
[2022-10-17 23:37] VITALS: BP 186/119; PULSE 109; RESP 18; O2SAT 97
--- NOTE | 2022-10-17 23:40 | PC.NURSE ---
Dr. Mandel aware of pts high blood pressure, and request to see detox in the morning. Pt CIWA scale 6, Dr. Mandel aware
[2022-10-18] VITALS (11 sets, daily range): BP systolic 96–192; BP diastolic 54–124; PULSE 77–116; RESP 14–24; TEMP 36.4–37.2; O2SAT 94–99
[2022-10-18 00:35] LABS: Reflex Lactate? 2 Y
--- NOTE | 2022-10-18 00:42 | PC.NURSE ---
pt continuing to report withdrawal symptoms. Pt shaking when his RN walks into room however, shaking resolves upon talking with pt. Pt reports anxiety, HR is increased
[2022-10-18] MEDS: LORazepam 1 MG TABLET 2 MG PO (01:25)
[2022-10-18] MEDS: Ibuprofen 400 MG TABLET PO ×4 (01:25→20:35)
[2022-10-18] MEDS: amLODIPine Besylate 10 MG TABLET PO (01:26)
--- NOTE | 2022-10-18 02:05 | MHC.EDTECH ---
pt instructed to keep b/p cuff on. pot keeps taking it off. pt admitted for detox and changed into paul.
[2022-10-18] MEDS: PHENobarbitaL sodium 130 MG/ML IM ONCE 340.8 MG IM (02:22)
--- NOTE | 2022-10-18 02:48 | PC.NURSE ---
pt sleeping, respirations are even and unlabored, no apparent distress, no tremors noted, minimal sweating
[2022-10-18] MEDS: LORazepam 2 MG/ML VIAL 1 MG IVPUSH (03:45)
[2022-10-18] MEDS: PHENobarbitaL sodium 130 MG/ML VIAL IM Q3Hx2 255.6 MG IM ×2 (04:18→07:56)
--- NOTE | 2022-10-18 04:20 | PM.IMHP ---
History of Present Illness Date of Service: 10/18/22 Chief Complaint: chest pain 57 yo M with hx of KATHYA, ILD, HTN, history of CHF, history of cirrhosis of the liver, cocaine abuse, COPD, diabetes, hypertension, TBI presents to the hospital complaints of chest pain and shortness of breath. patient is not forthcoming with information, he is not a good historian and unable to give much history. When asked him questions about what brought him in HS answers yes to all my questions. Therefore history is obtained mostly from EMR in ED physician. Patient is homeless, living in the motel, he was laying down he started having chest pain and shortness of breath, when Iasked the patient where the pain is he points to his epigastric region, he has also been out of medication for the past 2 months due to loss of transportation. patient is a daily alcohol drinker, unable to get much else from this patient we are asked admit this patient for alcohol withdrawal on arrival to the ED patient has a heart rate of 106, otherwise hemodynamically stable Labs are significant for WBC count of 8.9, CBC otherwise unremarkable, CMP is significant for potassium of 3.2, lactic acid of 4.4, bili of 3.2, AST of 43, urine drug screen negative, BNP of 11, troponin negative x2 chest CT angiogram as well as abdominal pelvic CT shows no evidence for pulmonary emboli, no focal airspace disease, chronic appearing changes, diffuse fatty infiltrate of the liver while in the ED patient starts withdrawing, and we are asked to see this patient Review of Systems Review of Systems: Yes all other systems are reviewed and are negative [facility] Medical History Acute interstitial pneumonitis Alcohol use disorder, moderate, dependence Anxiety ARDS (adult respiratory distress syndrome) ARDS (adult respiratory distress syndrome) CHF (congestive heart failure) Cirrhosis of liver Cocaine abuse Community acquired pneumonia COPD (chronic obstructive pulmonary disease) COPD (chronic obstructive pulmonary disease) COPD exacerbation COPD exacerbation Diabetes ETOH abuse Hypertension Hypoxia ILD (interstitial lung disease) Interstitial lung disease Liver cirrhosis Obesity (BMI 35.0-39.9 without comorbidity) Obesity (BMI 35.0-39.9 without comorbidity) KATHYA (obstructive sleep apnea) KATHYA (obstructive sleep apnea) Pneumonia Pneumonia Pneumonitis Sepsis Smoker TBI (traumatic brain injury) Family History Other Lymphoma Surgical History H/O brain surgery No significant past surgical history Social History Household Members: None Housing: Homeless Housing Other:: Sober House Do you presently have visiting nurse or other home services: No Alcohol intake: current Alcohol intake frequency: 3 or more drinks per day Alcohol type: hard liquor Patient Tobacco Use Status: Never used Tobacco Tobacco use type: Cigarette Cigarette Packs Per Day: 0.5 Cigarettes Per Day: 7 Smoked in Last 30 Days: Yes Second Hand Smoke Exposure: Yes Use of substances other than those prescribed or required for medical reasons: No Substance Use Type: Crack/Cocaine and Heroin Advance Directives: Yes Advance Directives on File: Yes Advance Directives Date on File: 05/20/21 service: No Current occupational status: unemployed and disabled Meds Allergies Allergy/AdvReac Type Severity Reaction Status Date / Time No Known Allergies Allergy Verified 10/17/22 15:59 [No Known Allergies*] Active Medications: Current Medications Pharmacy Consult (Consult Rx Etoh Phenob Im/Po) 1 each MISCELLANE ONCE PRN; Protocol PRN Reason: Consult order Phenobarbital Sodium (Phenobarbital Sodium 130 Mg/Ml Vial Im Q3hx2) 255.6 mg IM Q3H SHARIF Stop: 10/18/22 08:01 Last Admin: 10/18/22 04:18 Dose: 255.6 mg Home Medications Medication Instructions Recorded Confirmed Last Taken Type blood sugar diagnostic (FreeStyle #10 ea 09/08/21 02/11/22 Unknown History Lite Strips) lancets 30 gauge (Ultra-Care #100 ea 09/08/21 02/11/22 Unknown History Lancets) pen needle,diabetic dual safty 30 #100 ea 09/08/21 02/11/22 Unknown History gauge x 3/16 (BD AutoShield Duo Pen Needle) albuterol sulfate 90 mcg/actuation inhalation 10/18/22 Unknown History aerosol inhaler amlodipine 5 mg tablet 1 tab PO DAILY 10/18/22 10/18/22 Unknown History bupropion HCl 150 mg 24 hr tablet, 1 tab PO DAILY 10/18/22 10/18/22 Unknown History extended release hydroxyzine pamoate 25 mg capsule mg PO BID 10/18/22 Unknown History ibuprofen 400 mg tablet 1 tab PO TID 10/18/22 10/18/22 Unknown History nicotine (polacrilex) 4 mg buccal 1 ea PO QID PRN Withdrawal Symptoms 10/18/22 10/18/22 Unknown History lozenge ondansetron 4 mg disintegrating mg PO 10/18/22 Unknown History tablet oxycodone 5 mg tablet 1 tab PO Q6H PRN severe pain 10/18/22 10/18/22 Unknown History pantoprazole 40 mg tablet,delayed 1 tab PO DAILY 10/18/22 10/18/22 Unknown History release paroxetine HCl 40 mg tablet 1 tab PO QAM 10/18/22 10/18/22 Unknown History trazodone 50 mg tablet 1 tab PO BEDTIME 10/18/22 10/18/22 Unknown History Physical Exam Vital Signs and Narrative: Vital Signs: Last Vital Signs Temp 98.2 F 10/18/22 02:05 Pulse 106 H 10/18/22 02:05 Resp 18 10/18/22 02:05 BP 175/116 H 10/18/22 02:05 Pulse Ox 94 10/18/22 02:05 O2 Del Method 10/18/22 02:05 BMI result Body Mass Index 30.9 Const: Other: unable to assess orientation as patient has just not good historian encephalopathy General: cooperative and no acute distress Eyes: General: appearance normal, both eyes and all related structures Resp: Effort & Inspection: normal respiratory effort Auscultation: clear to auscultation bilaterally Cardio: Rate: regular rate Rhythm: regular rhythm GI: Palpation (GI): Soft to palpation Auscultation: normal bowel sounds Skin: General skin exam: no rashes or lesions noted Neuro: Cognition (Neuro): normal cognition Extrem: General: Yes normal to inspection and Yes no pedal edema Results Labs 10/17/22 17:03 10/17/22 22:14 Labs: Laboratory Results - last 24 hr 10/17/22 10/17/22 10/17/22 16:48 17:03 17:03 MCV 85.1 MCH 30.4 MCHC 35.7 RDW 13.1 Plt Count 160 MPV 9.7 Immature Gran % (Auto) 0.9 H Neut % (Auto) 58.6 Lymph % (Auto) 32.7 [place] % (Auto) 6.3 Eos % (Auto) 0.7 Baso % (Auto) 0.8 Lymph # (Auto) 2.9 [place] # (Auto) 0.6 Eos # (Auto) 0.1 Baso # (Auto) 0.1 Abs Immat Gran (auto) 0.08 H Absolute Neuts (auto) 5.2 Absolute Nucleated RBC 0.000 Nucleated RBC % (auto) 0.0 PT INR D-Dimer High Sensitivty Anion Gap 22 H Estim Creat Clear Calc 99.4 Estimated GFR > 60 Random Glucose 168 H Lactic Acid Lactic Acid F/U @ 2Hr Calcium 9.0 Magnesium 1.7 Total Bilirubin 3.2 H AST 43 H ALT 39 Alkaline Phosphatase 126 H Troponin I High Sens 4.5 B-Natriuretic Peptide Total Protein 7.3 Albumin 4.0 Lipase 21 Urine Opiates Screen Urine Fentanyl Screen Ur Barbiturates Screen Ur Phencyclidine Scrn Ur Amphetamines Screen U Benzodiazepines Scrn Urine Cocaine Screen U Marijuana (THC) Screen Ethyl Alcohol COVID-19 (YADIRA) COVID-Open-Plug 10/17/22 10/17/22 10/17/22 17:03 17:03 17:03 MCV MCH MCHC RDW Plt Count MPV Immature Gran % (Auto) Neut % (Auto) Lymph % (Auto) [place] % (Auto) Eos % (Auto) Baso % (Auto) Lymph # (Auto) [place] # (Auto) Eos # (Auto) Baso # (Auto) Abs Immat Gran (auto) Absolute Neuts (auto) Absolute Nucleated RBC Nucleated RBC % (auto) PT INR D-Dimer High Sensitivty 339 Anion Gap Estim Creat Clear Calc Estimated GFR Random Glucose Lactic Acid Lactic Acid F/U @ 2Hr Calcium Magnesium Total Bilirubin AST ALT Alkaline Phosphatase Troponin I High Sens B-Natriuretic Peptide 11 Total Protein Albumin Lipase Urine Opiates Screen Urine Fentanyl Screen Ur Barbiturates Screen Ur Phencyclidine Scrn Ur Amphetamines Screen U Benzodiazepines Scrn Urine Cocaine Screen U Marijuana (THC) Screen Ethyl Alcohol 195 COVID-19 (YADIRA) COVID-Open-Plug 10/17/22 10/17/22 10/17/22 17:03 17:09 17:40 MCV MCH MCHC RDW Plt Count MPV Immature Gran % (Auto) Neut % (Auto) Lymph % (Auto) [place] % (Auto) Eos % (Auto) Baso % (Auto) Lymph # (Auto) [place] # (Auto) Eos # (Auto) Baso # (Auto) Abs Immat Gran (auto) Absolute Neuts (auto) Absolute Nucleated RBC Nucleated RBC % (auto) PT 13.5 H INR 1.2 H D-Dimer High Sensitivty Anion Gap Estim Creat Clear Calc Estimated GFR Random Glucose Lactic Acid 4.4 H* Lactic Acid F/U @ 2Hr Calcium Magnesium Total Bilirubin AST ALT Alkaline Phosphatase Troponin I High Sens B-Natriuretic Peptide Total Protein Albumin Lipase Urine Opiates Screen Urine Fentanyl Screen Ur Barbiturates Screen Ur Phencyclidine Scrn Ur Amphetamines Screen U Benzodiazepines Scrn Urine Cocaine Screen U Marijuana (THC) Screen Ethyl Alcohol COVID-19 (YADIRA) Negative COVID-Open-Plug See Note 10/17/22 10/17/22 10/17/22 21:48 22:14 22:14 MCV MCH MCHC RDW Plt Count MPV Immature Gran % (Auto) Neut % (Auto) Lymph % (Auto) [place] % (Auto) Eos % (Auto) Baso % (Auto) Lymph # (Auto) [place] # (Auto) Eos # (Auto) Baso # (Auto) Abs Immat Gran (auto) Absolute Neuts (auto) Absolute Nucleated RBC Nucleated RBC % (auto) PT INR D-Dimer High Sensitivty Anion Gap Estim Creat Clear Calc Estimated GFR Random Glucose Lactic Acid Lactic Acid F/U @ 2Hr 4.1 H* Calcium Magnesium Total Bilirubin AST ALT Alkaline Phosphatase Troponin I High Sens 6.0 B-Natriuretic Peptide Total Protein Albumin Lipase Urine Opiates Screen Not Detected Urine Fentanyl Screen Not Detected Ur Barbiturates Screen Not Detected Ur Phencyclidine Scrn Not Detected Ur Amphetamines Screen Not Detected U Benzodiazepines Scrn Not Detected Urine Cocaine Screen Not Detected U Marijuana (THC) Screen Not Detected Ethyl Alcohol COVID-19 (YADIRA) COVID-Open-Plug 10/17/22 22:14 MCV MCH MCHC RDW Plt Count MPV Immature Gran % (Auto) Neut % (Auto) Lymph % (Auto) [place] % (Auto) Eos % (Auto) Baso % (Auto) Lymph # (Auto) [place] # (Auto) Eos # (Auto) Baso # (Auto) Abs Immat Gran (auto) Absolute Neuts (auto) Absolute Nucleated RBC Nucleated RBC % (auto) PT INR D-Dimer High Sensitivty Anion Gap 20 Estim Creat Clear Calc 107.7 Estimated GFR > 60 Random Glucose 134 H Lactic Acid Lactic Acid F/U @ 2Hr Calcium 8.3 L D Magnesium Total Bilirubin 3.3 H AST 40 H ALT 34 Alkaline Phosphatase 111 Troponin I High Sens B-Natriuretic Peptide Total Protein 6.5 Albumin 3.7 Lipase Urine Opiates Screen Urine Fentanyl Screen Ur Barbiturates Screen Ur Phencyclidine Scrn Ur Amphetamines Screen U Benzodiazepines Scrn Urine Cocaine Screen U Marijuana (THC) Screen Ethyl Alcohol COVID-19 (YADIRA) COVID-19 Clin Com Imaging Radiologist's Impressions: Impressions Abdomen/Pelvis CT 10/17/22 19:35 IMPRESSION: 1. No evidence for pulmonary emboli. No focal airspace disease. 2. Chronic appearing changes similar to the prior study. 3. Diffuse fatty infiltration of the liver with chronic changes similar to the prior study. No acute intra-abdominal process. VTE: Negative Chest CTA 10/17/22 19:35 IMPRESSION: 1. No evidence for pulmonary emboli. No focal airspace disease. 2. Chronic appearing changes similar to the prior study. 3. Diffuse fatty infiltration of the liver with chronic changes similar to the prior study. No acute intra-abdominal process. VTE: Negative Assessment and Plan (1) Alcohol withdrawal: Status: Acute (2) Atypical chest pain: Status: Acute (3) Acute hypokalemia: Status: Acute Plan 57-year-old male with past medical history of alcohol abuse, COPD, presents to the hospital with complaints of atypical chest pain # atypical chest pain - noncardiac, troponin negative x2, EKG shows no ACS - likely musculoskeletal - p.r.n. Tylenol # alcohol withdrawal - will treat with phenobarb protocol - thiamine and folic acid - monitor for symptoms # hyperkalemia - repleted - follow BMP # history of COPD - does not appear to be in exacerbation - continue home inhalers # KATHYA - unclear if on CPAP at bedtime - can reassess DVT prophylaxis: Lovenox Time Spent With Patient Time: Total time managing care of this patient today ____ minutes. Quality Stroke Does the patient have a stroke diagnosis?: No VTE Prior VTE?: No VTE Risk Level:: Medical - moderate - high VTE Device Contraindication: Treatment Not Indicated VTE Drug Contraindication: N/A - Med Ordered
--- NOTE | 2022-10-18 04:24 | PC.NURSE ---
Took over care at 3:20am, Medicated per Nov, Notified Dr Sousa regarding elevated blood pressure. Provider aware and will continue to monitor. Lactic was order prior to taking assignment, lab drawn, collected and sent.
[2022-10-18 04:26] LABS: ~Lactic Acid-LAB USE ONLY 1.3 mmol/L (0.5-2.0)
[2022-10-18] MEDS: Enoxaparin Sodium 40 MG/0.4 ML SYRINGE SUBCUT (05:27)
--- NOTE | 2022-10-18 05:29 | PC.NURSE ---
Notified Dr. Vasquez of elevated blood pressure, awaiting new orders. Will continue to monitor.
[2022-10-18] MEDS: hydrALAZINE HCl 20 MG/ML VIAL 5 MG IVPUSH (06:03)
--- NOTE | 2022-10-18 06:06 | PC.NURSE ---
medicated per Mar for blood pressure. Will continue to monitor.
[2022-10-18 06:49] LABS: MANUAL DIFF FLAG NO
[2022-10-18 07:01] LABS: Basophils Percent Auto 0.6 % (0-2); Eosinophils Absolute Auto 0.1 X10*3/uL (0.0-0.4); Eosinophils Percent Auto 1.5 % (0-4); Hematocrit 41.5 % (42.0-52.0); Hemoglobin 14.6 g/dl (14.0-18.0); Imm Gran Abs Auto 0.02 X10*3/uL (0.00-0.03); Imm Gran Pct Auto 0.3 % (0.0-0.4); Lymphocytes Absolute Auto 2.2 X10*3/uL (1.2-4.9); Lymphocytes Percent Auto 30.1 % (20-40); Mean Corpuscular HGB Conc 35.2 g/dl (31.0-36.0); Mean Corpuscular Volume 85.2 fL (80.0-98.0); Monocytes Absolute Auto 0.4 X10*3/uL (0.1-1.2); Neutrophils Absolute Auto 4.4 x10*3/uL (2.0-8.3); Neutrophils Percent Auto 61.5 % (45-73); Red Blood Count 4.87 X10*6/uL (4.60-5.80); Red Cell Distribution Width 13.1 % (11.0-16.0); White Blood Count 7.2 X10*3/uL (4.8-10.8)
[2022-10-18 07:08] LABS: Anion Gap 14 (12-20); Blood Urea Nitrogen 9 mg/dL (9-16); Calcium 8.7 mg/dL (8.4-10.2); Carbon Dioxide 21 mmol/L (22-29); Chloride 106 mmol/L (96-108); Creatinine Clr Calc Pharmacy 111.6; Estimated Glomerular Filt Rate > 60; Glucose Random 132 mg/dL (60-115); Potassium 3.3 mmol/L (3.3-5.1); Sodium 138 mmol/L (135-145)
--- NOTE | 2022-10-18 07:08 | PC.NURSE ---
Patient sleeping easily arouse no distress noted AOx 4 neuros intact no tremors sweating or hallucinations patient is daily drinker. Verified Meds with pharmacist they will amend phenobarb dose will CTM
[2022-10-18 07:10] LABS: Mean Platelet Volume 10.1 fL (9.4-12.4); Platelet Count 86 X10*3/uL (160-400)
--- NOTE | 2022-10-18 07:20 | PHA.MEDREC ---
Pharmacy Consult ? Medication Reconciliation Pharmacy has reviewed the medication reconciliation.
[2022-10-18] MEDS: Folic Acid 1 MG TABLET PO (07:56)
[2022-10-18] MEDS: Thiamine HCL 100 MG TABLET PO (07:56)
[2022-10-18] MEDS: 0.9 % Sodium Chloride Flush 3 ML SYRINGE IVFLUSH ×3 (07:57→20:39)
[2022-10-18] MEDS: hydrOXYzine HCL 25 MG TABLET PO ×2 (08:25→20:35)
[2022-10-18] MEDS: buPROPion HCl XL 150 MG TAB.ER.24H PO (08:25)
[2022-10-18] MEDS: Omeprazole 40 MG CAPSULE.DR PO (08:26)
[2022-10-18] MEDS: PARoxetine HCL 40 MG TABLET PO (08:26)
[2022-10-18] MEDS: amLODIPine Besylate 5 MG TABLET PO (08:26)
--- NOTE | 2022-10-18 09:17 | PC.NURSE ---
Patient sleeping no distress noted will CTM
--- NOTE | 2022-10-18 10:55 | PM.EVENT ---
Event Note Date of Service: 10/18/22 Event Note: Seen and evaluated this morning Looks comfortable, sleeping No reported complaints Seems he was more intoxicated then withdrawing at time of presentation with elevated levels of alcohol S blood Continue CIWA protocol and phenobarbital Time Spent With Patient Time: Total time managing care of this patient today ____ minutes.
--- NOTE | 2022-10-18 11:02 | PC.NURSE ---
Patient sleeping no distress noted will CTM
--- NOTE | 2022-10-18 11:57 | PC.NURSE ---
Inpatient MD notified patient reamins hypertensive asymptomatic will CTM
[2022-10-18] MEDS: Labetalol HCL 100 MG TABLET PO (12:41)
--- NOTE | 2022-10-18 13:26 | PC.NURSE ---
Attempt to call report twice no answer on third floor
[2022-10-18] MEDS: Acetaminophen 325 MG TABLET 650 MG PO (17:37)
[2022-10-18] MEDS: PHENobarbitaL 15 MG TABLET 45 MG PO (20:35)
[2022-10-18] MEDS: traZODone HCL 50 MG TABLET PO (20:35)
[2022-10-18] MEDS: oxyCODONE HCl Immed Release 5 MG TABLET PO (21:32)
[2022-10-19 03:22] VITALS: BP 105/55; PULSE 83; RESP 18; TEMP 36.2; O2SAT 99
[2022-10-19] MEDS: oxyCODONE HCl Immed Release 5 MG TABLET PO ×2 (05:06→21:04)
[2022-10-19] MEDS: Omeprazole 40 MG CAPSULE.DR PO (05:06)
[2022-10-19] MEDS: Enoxaparin Sodium 40 MG/0.4 ML SYRINGE SUBCUT (05:07)
[2022-10-19 05:46] VITALS: BMI 30.7
[2022-10-19 08:00] VITALS: BP 111/71; PULSE 88; RESP 18; TEMP 36.7; O2SAT 96
--- NOTE | 2022-10-19 09:11 | MHC.CM.PN ---
PATIENT LIVES WITH FRIENDS. HE WAS USING HOME O2 BUT HAS SINCE STOPPED. HE REPORTS I JUST STOPPED USING IT HE ALSO REPORTS 'DONG OK, I GUESS WITHOUT IT AND THAT HE WAS ON 2 L O2 VIA CANNULA PRN NO HCP ON FILE. PATIENT WILL CONSIDER ASSIGNING ONE DURING THIS VISIT. BARRETT BETANCOURT X 3 IMM 10/19 IN CHART DC PLAN: HOME SELF CARE
[2022-10-19] MEDS: amLODIPine Besylate 5 MG TABLET PO (11:40)
[2022-10-19] MEDS: hydrOXYzine HCL 25 MG TABLET PO ×2 (11:40→21:04)
[2022-10-19] MEDS: PHENobarbitaL 15 MG TABLET 45 MG PO ×2 (11:40→21:05)
[2022-10-19] MEDS: Folic Acid 1 MG TABLET PO (11:40)
[2022-10-19] MEDS: PARoxetine HCL 40 MG TABLET PO (11:41)
[2022-10-19] MEDS: Ibuprofen 400 MG TABLET PO ×3 (11:41→21:04)
[2022-10-19] MEDS: buPROPion HCl XL 150 MG TAB.ER.24H PO (11:41)
[2022-10-19] MEDS: Thiamine HCL 100 MG TABLET PO (11:41)
[2022-10-19] MEDS: 0.9 % Sodium Chloride Flush 3 ML SYRINGE IVFLUSH ×3 (11:45→20:53)
--- NOTE | 2022-10-19 11:50 | P.PNIM_ITS ---
Subjective Subjective Date of Service: 10/19/22 Interval History: chest pain resolved Physical Exam Vital Signs: Vital Signs: Last Vital Signs Temp 98.0 F 10/19/22 08:00 Pulse 88 10/19/22 08:00 Resp 18 10/19/22 08:00 BP 111/71 10/19/22 08:00 Pulse Ox 96 10/19/22 08:00 O2 Del Method 10/19/22 08:00 BMI result Body Mass Index 30.7 General: AO X 3, no acute distress Resp: CTA bilateral, no accessory muscles used CVS: S1,S2,RRR GI: soft, non tender, non distended Neuro: shaking Objective Data Active Medications Acetaminophen (Acetaminophen 325 Mg Tablet) 650 mg PO Q8H PRN PRN Reason: Pain, Mild (Pain Scale 1-3) Last Admin: 10/18/22 17:37 Dose: 650 mg Documented By: TARIQ Albuterol Sulfate (Albuterol Sulfate 90 Mcg 8 Gm Inhaler) 2 puff INHALE Q4H [facility] Last Admin: 10/19/22 09:02 Dose: Not Given Documented By: KARL Non-Admin Reason: Patient Refused Amlodipine Besylate (Amlodipine Besylate 5 Mg Tablet) 5 mg PO DAILY [facility]; Protocol Last Admin: 10/19/22 11:40 Dose: 5 mg Documented By: FRANNIE Bupropion HCl (Bupropion Hcl Xl 150 Mg Tab.Er.24h) 150 mg PO DAILY [facility] Last Admin: 10/19/22 11:41 Dose: 150 mg Documented By: FRANNIE Docusate Sodium (Docusate Sodium 100 Mg Capsule) 100 mg PO DAILY PRN PRN Reason: Constipation Enoxaparin Sodium (Enoxaparin Sodium 40 Mg/0.4 Ml Syringe) 40 mg SUBCUT Q24H [facility] Last Admin: 10/19/22 05:07 Dose: 40 mg Documented By: KAILA Folic Acid (Folic Acid 1 Mg Tablet) 1 mg PO DAILY [facility] Last Admin: 10/19/22 11:40 Dose: 1 mg Documented By: FRANNIE Hydroxyzine HCl (Hydroxyzine Hcl 25 Mg Tablet) 25 mg PO BID [facility] Last Admin: 10/19/22 11:40 Dose: 25 mg Documented By: FRANNIE Ibuprofen (Ibuprofen 400 Mg Tablet) 400 mg PO TID [facility] Last Admin: 10/19/22 11:41 Dose: 400 mg Documented By: FRANNIE Omeprazole (Omeprazole 40 Mg Capsule.Dr) 40 mg PO DAILY@0630 [facility] Last Admin: 10/19/22 05:06 Dose: 40 mg Documented By: KAILA Ondansetron HCl (Ondansetron Hcl 4 Mg/2 Ml Vial) 4 mg IVPUSH Q8H PRN PRN Reason: Nausea and Vomiting Oxycodone HCl (Oxycodone Hcl Immed Release 5 Mg Tablet) 5 mg PO Q6H PRN PRN Reason: severe pain Last Admin: 10/19/22 05:06 Dose: 5 mg Documented By: KAILA Paroxetine HCl (Paroxetine Hcl 40 Mg Tablet) 40 mg PO DAILY [facility] Last Admin: 10/19/22 11:41 Dose: 40 mg Documented By: FRANNIE Pharmacy Consult (Consult Rx Etoh Phenob Im/Po) 1 each MISCELLANE ONCE PRN; Protocol PRN Reason: Consult order Phenobarbital (Phenobarbital 15 Mg Tablet) 45 mg PO BID [facility]; Protocol Stop: 10/20/22 09:01 Last Admin: 10/19/22 11:40 Dose: 45 mg Documented By: FRANNIE Phenobarbital (Phenobarbital 30 Mg Tablet) 30 mg PO BID [facility]; Protocol Stop: 10/22/22 09:01 Phenobarbital (Phenobarbital 15 Mg Tablet) 15 mg PO DAILY [facility]; Protocol Stop: 10/24/22 09:01 Sodium Chloride (0.9 % Sodium Chloride Flush 3 Ml Syringe) 3 ml IVFLUSH QSHIFT [facility] Last Admin: 10/19/22 11:45 Dose: 3 ml Documented By: FRANNIE Thiamine HCl (Thiamine Hcl 100 Mg Tablet) 100 mg PO DAILY [facility] Last Admin: 10/19/22 11:41 Dose: 100 mg Documented By: FRANNIE Trazodone HCl (Trazodone Hcl 50 Mg Tablet) 50 mg PO BEDTIME [facility] Last Admin: 10/18/22 20:35 Dose: 50 mg Documented By: KAILA Labs 10/18/22 06:41 10/18/22 06:40 Microbiology Microbiology Results: Microbiology 10/17/22 17:03 Blood Culture - Preliminary Blood - Venous No growth after 24 hours. 10/17/22 16:49 Blood Culture - Preliminary Blood - Venous No growth after 24 hours. Assessment and Plan (1) Atypical chest pain: Status: Acute Plan 57-year-old male with past medical history of alcohol dependence, COPD, pres ented to the hospital with complaints of atypical chest pain atypical chest pain noncardiac, troponin negative x2, EKG shows no ACS likely musculoskeletal p.r.n.? Tylenol alcohol dependence with withdrawl and acute hepatitis, thrombocytopenia phenobarb protocol thiamine and folic acid ciwa lactic acidosis due to liver disease not sepsis hypokalemia repleted monitor BMP history of COPD stable KATHYA unclear if on CPAP at bedtime ?DVT prophylaxis:? Lovenox full code reason for continued hospitalization: withdrawal Time Spent With Patient Time: Total time managing care of this patient today ____ minutes. Quality Stroke Does the patient have a stroke diagnosis?: No VTE Prior VTE?: No VTE Risk Level:: Medical - moderate - high VTE Device Contraindication: Treatment Not Indicated VTE Drug Contraindication: N/A - Med Ordered
[2022-10-19] MEDS: Potassium Chloride ER 20 MEQ TAB.ER.PRT 40 MEQ PO (13:02)
[2022-10-19 15:16] VITALS: BP 123/83; PULSE 103; RESP 18; TEMP 36.8; O2SAT 97
[2022-10-19 19:17] VITALS: BP 138/77; PULSE 98; RESP 18; TEMP 36.9; O2SAT 97
[2022-10-19] MEDS: traZODone HCL 50 MG TABLET PO (21:05)
[2022-10-20 04:00] VITALS: BP 125/82; PULSE 72; RESP 18; TEMP 36.8; O2SAT 98
[2022-10-20] MEDS: Omeprazole 40 MG CAPSULE.DR PO (05:34)
[2022-10-20] MEDS: Enoxaparin Sodium 40 MG/0.4 ML SYRINGE SUBCUT (05:34)
[2022-10-20] MEDS: oxyCODONE HCl Immed Release 5 MG TABLET PO (05:34)
[2022-10-20 05:56] LABS: Hematocrit 31.1 % (42.0-52.0); Hemoglobin 10.7 g/dl (14.0-18.0); Mean Corpuscular HGB Conc 34.4 g/dl (31.0-36.0); Mean Corpuscular Volume 87.1 fL (80.0-98.0); Mean Platelet Volume 10.4 fL (9.4-12.4); Red Blood Count 3.57 X10*6/uL (4.60-5.80); Red Cell Distribution Width 13.5 % (11.0-16.0); White Blood Count 2.3 X10*3/uL (4.8-10.8)
[2022-10-20 05:58] LABS: Platelet Count 42 X10*3/uL (160-400)
[2022-10-20 06:00] VITALS: BMI 30.5
[2022-10-20 06:12] LABS: Alanine Aminotransferase 19 U/L (0-40); Alkaline Phosphatase 74 U/L (39-117); Anion Gap 11 (12-20); Aspartate Amino Transferase 21 U/L (5-37); Bilirubin Direct 0.4 mg/dL (0.0-0.5); Bilirubin Total 1.1 mg/dL (0.0-1.0); Blood Urea Nitrogen 13 mg/dL (9-16); Calcium 8.4 mg/dL (8.4-10.2); Carbon Dioxide 23 mmol/L (22-29); Chloride 110 mmol/L (96-108); Estimated Glomerular Filt Rate > 60; Glucose Fasting 138 mg/dL (60-99); Potassium 3.2 mmol/L (3.3-5.1); Sodium 141 mmol/L (135-145); Total Protein 5.1 g/dL (6.5-8.0)
[2022-10-20 06:15] LABS: Magnesium 1.4 mg/dL (1.6-2.6)
[2022-10-20] MEDS: hydrOXYzine HCL 25 MG TABLET PO ×2 (07:33→21:20)
[2022-10-20] MEDS: Thiamine HCL 100 MG TABLET PO (07:33)
[2022-10-20] MEDS: amLODIPine Besylate 5 MG TABLET PO (07:33)
[2022-10-20] MEDS: Folic Acid 1 MG TABLET PO (07:34)
[2022-10-20] MEDS: PARoxetine HCL 40 MG TABLET PO (07:34)
[2022-10-20] MEDS: Ibuprofen 400 MG TABLET PO ×3 (07:34→21:20)
[2022-10-20] MEDS: PHENobarbitaL 15 MG TABLET 45 MG PO (07:35)
[2022-10-20] MEDS: buPROPion HCl XL 150 MG TAB.ER.24H PO (07:35)
[2022-10-20] MEDS: Magnesium Sulfate/H2O 2 GM/50 ML PIGGYBACK IV (07:36)
[2022-10-20] MEDS: 0.9 % Sodium Chloride Flush 3 ML SYRINGE IVFLUSH ×3 (07:42→21:21)
[2022-10-20] MEDS: Albuterol Sulfate 90 MCG 8 GM INHALER 2 PUFF INHALE (07:48)
[2022-10-20 07:49] VITALS: RESP 18; O2SAT 94
[2022-10-20 08:00] VITALS: BP 126/76; PULSE 71; RESP 18; TEMP 36.5; O2SAT 98
[2022-10-20] MEDS: Potassium Chloride ER 20 MEQ TAB.ER.PRT 40 MEQ PO (09:30)
[2022-10-20] MEDS: Magnesium Oxide 400 MG TABLET PO ×2 (09:30→16:38)
--- NOTE | 2022-10-20 09:41 | P.PNIM_ITS ---
Subjective Subjective Date of Service: 10/20/22 Interval History: chest pain resolved Physical Exam Vital Signs: Vital Signs: Last Vital Signs Temp 97.7 F 10/20/22 08:00 Pulse 71 10/20/22 08:00 Resp 18 10/20/22 08:00 BP 126/76 10/20/22 08:00 Pulse Ox 98 10/20/22 08:00 O2 Del Method 10/20/22 08:00 BMI result Body Mass Index 30.5 General: AO X 3, no acute distress Resp: CTA bilateral, no accessory muscles used CVS: S1,S2,RRR GI: soft, non tender, non distended Neuro: shaking Objective Data Active Medications Acetaminophen (Acetaminophen 325 Mg Tablet) 650 mg PO Q8H PRN PRN Reason: Pain, Mild (Pain Scale 1-3) Last Admin: 10/18/22 17:37 Dose: 650 mg Documented By: TARIQ Albuterol Sulfate (Albuterol Sulfate 90 Mcg 8 Gm Inhaler) 2 puff INHALE Q4H [facility] Last Admin: 10/20/22 07:48 Dose: 2 puff Documented By: JOVAN Amlodipine Besylate (Amlodipine Besylate 5 Mg Tablet) 5 mg PO DAILY [facility]; Protocol Last Admin: 10/20/22 07:33 Dose: 5 mg Documented By: CHELSEA Bupropion HCl (Bupropion Hcl Xl 150 Mg Tab.Er.24h) 150 mg PO DAILY [facility] Last Admin: 10/20/22 07:35 Dose: 150 mg Documented By: CHELSEA Docusate Sodium (Docusate Sodium 100 Mg Capsule) 100 mg PO DAILY PRN PRN Reason: Constipation Enoxaparin Sodium (Enoxaparin Sodium 40 Mg/0.4 Ml Syringe) 40 mg SUBCUT Q24H [facility] Last Admin: 10/20/22 05:34 Dose: 40 mg Documented By: HOLLEY Folic Acid (Folic Acid 1 Mg Tablet) 1 mg PO DAILY [facility] Last Admin: 10/20/22 07:34 Dose: 1 mg Documented By: CHELSEA Hydroxyzine HCl (Hydroxyzine Hcl 25 Mg Tablet) 25 mg PO BID [facility] Last Admin: 10/20/22 07:33 Dose: 25 mg Documented By: CHELSEA Ibuprofen (Ibuprofen 400 Mg Tablet) 400 mg PO TID [facility] Last Admin: 10/20/22 07:34 Dose: 400 mg Documented By: HCELSEA Magnesium Oxide (Magnesium Oxide 400 Mg Tablet) 400 mg PO BIDPC [facility] Last Admin: 10/20/22 09:30 Dose: 400 mg Documented By: CHELSEA Omeprazole (Omeprazole 40 Mg Capsule.Dr) 40 mg PO DAILY@0630 [facility] Last Admin: 10/20/22 05:34 Dose: 40 mg Documented By: HOLLEY Ondansetron HCl (Ondansetron Hcl 4 Mg/2 Ml Vial) 4 mg IVPUSH Q8H PRN PRN Reason: Nausea and Vomiting Oxycodone HCl (Oxycodone Hcl Immed Release 5 Mg Tablet) 5 mg PO Q6H PRN PRN Reason: severe pain Last Admin: 10/20/22 05:34 Dose: 5 mg Documented By: HOLLEY Paroxetine HCl (Paroxetine Hcl 40 Mg Tablet) 40 mg PO DAILY [facility] Last Admin: 10/20/22 07:34 Dose: 40 mg Documented By: CHELSEA Pharmacy Consult (Consult Rx Etoh Phenob Im/Po) 1 each MISCELLANE ONCE PRN; Protocol PRN Reason: Consult order Phenobarbital (Phenobarbital 30 Mg Tablet) 30 mg PO BID [facility]; Protocol Stop: 10/22/22 09:01 Phenobarbital (Phenobarbital 15 Mg Tablet) 15 mg PO DAILY [facility]; Protocol Stop: 10/24/22 09:01 Sodium Chloride (0.9 % Sodium Chloride Flush 3 Ml Syringe) 3 ml IVFLUSH QSHICHI [facility] Last Admin: 10/20/22 07:42 Dose: 3 ml Documented By: CHELSEA Thiamine HCl (Thiamine Hcl 100 Mg Tablet) 100 mg PO DAILY [facility] Last Admin: 10/20/22 07:33 Dose: 100 mg Documented By: CHELSEA Trazodone HCl (Trazodone Hcl 50 Mg Tablet) 50 mg PO BEDTIME [facility] Last Admin: 10/19/22 21:05 Dose: 50 mg Documented By: ALBA Labs 10/20/22 05:34 10/20/22 05:34 Labs: Laboratory Results - last 24 hr 10/20/22 10/20/22 05:34 05:34 MCV 87.1 MCH 30.0 MCHC 34.4 RDW 13.5 Plt Count 42 L D MPV 10.4 Absolute Nucleated RBC 0.000 Nucleated RBC % (auto) 0.0 Anion Gap 11 L Estim Creat Clear Calc 94.0 Estimated GFR > 60 Fasting Glucose 138 H Calcium 8.4 Magnesium 1.4 L* Total Bilirubin 1.1 H Direct Bilirubin 0.4 AST 21 ALT 19 Alkaline Phosphatase 74 Total Protein 5.1 L Albumin 3.0 L Microbiology Microbiology Results: Microbiology 10/17/22 17:03 Blood Culture - Preliminary Blood - Venous No growth after 48 hours. 10/17/22 16:49 Blood Culture - Preliminary Blood - Venous No growth after 48 hours. Assessment and Plan (1) Atypical chest pain: Status: Acute Plan 57-year-old male with past medical history of alcohol dependence, COPD, presented to the hospital with complaints of atypical chest pain atypical chest pain noncardiac, troponin negative x2, EKG shows no ACS likely musculoskeletal p.r.n.? Tylenol alcohol dependence with withdrawl and acute hepatitis, pancytopenia phenobarb protocol thiamine and folic acid ciwa monitor lactic acidosis due to liver disease not sepsis hypokalemia, hypomagnesemia replace monitor BMP history of COPD stable KATHYA unclear if on CPAP at bedtime ?DVT prophylaxis:? Lovenox full code reason for continued hospitalization: withdrawal Time Spent With Patient Time: Total time managing care of this patient today ____ minutes. Quality Stroke Does the patient have a stroke diagnosis?: No VTE Prior VTE?: No VTE Risk Level:: Medical - moderate - high VTE Device Contraindication: Treatment Not Indicated VTE Drug Contraindication: N/A - Med Ordered
--- NOTE | 2022-10-20 13:15 | P.CDIC_ITS ---
CDI Concurrent Query Documentation Clarification: PHYSICIAN'S DOCUMENTATION REQUEST Date of Query: 10/20/22 1316 Patient Name: Yovani Valenzuela Admit Date: 10/18/22 Dear Doctor, A review of the medical record indicates additional documentation may be needed. Please review below and update the documentation accordingly. Clinical Indicators: Risk Factors/Clinical Indicators/Treatments Per MD progress note 10/20/22: lactic acidosis due to liver disease not sepsis Clarify which of the following accurately represents the acuity of the [insert diagnosis]. Possible options might include: * Acute lactic acidosis * Chronic lactic acidosis * Other ? please specify * Unable to determine Use of terms such as suspected, likely, concern for, or probable (associated with a specific diagnosis that is being evaluated, monitored, or treated as if it exists) are acceptable and can be coded in the inpatient setting, when documented at the time of discharge. Thank you, Marlen Mccollum RN Extension: [phone] Please use your independent medical judgment in providing your response. THIS QUERY IS PART OF THE PERMANENT MEDICAL RECORD Provider Response: Other Other Diagnosis: acute lactic acidosis
--- NOTE | 2022-10-20 13:15 | MHC.CM.PN ---
THIS INDUCTION HEAT TREATER MET WITH PATIENT AND SISTER, NICHOLE (PER REQUEST) NICHOLE ([phone]) IS NOW AWARE THAT CASE MANAGEMENT CAN GIVE A [facility] LIST, BUT NOT FIND PATIENT A HOME. SUGGESTION FOR CARE TEAM CONSULT ONCE MEDICALLY CLEARED. PATIENT AGREEABLE TO [facility] UNIT STAY IF ABLETO SECURE NICHOLE HAS BEEN PAYING FOR PATIENT'S HOTEL ROOM AND HE WAS SUPPOSED TO BE OUT TODAY.
[2022-10-20 15:08] VITALS: BP 144/80; PULSE 88; RESP 16; TEMP 36.8; O2SAT 98
[2022-10-20 19:31] VITALS: BP 128/75; PULSE 89; RESP 16; TEMP 37.1; O2SAT 98
[2022-10-20] MEDS: PHENobarbitaL 30 MG TABLET PO (21:20)
[2022-10-20] MEDS: traZODone HCL 50 MG TABLET PO (21:20)
[2022-10-21 03:16] VITALS: BP 139/63; PULSE 69; RESP 18; TEMP 35.9; O2SAT 97
[2022-10-21] MEDS: Enoxaparin Sodium 40 MG/0.4 ML SYRINGE SUBCUT (03:19)
[2022-10-21] MEDS: Omeprazole 40 MG CAPSULE.DR PO (05:44)
[2022-10-21 06:00] VITALS: BMI 30.5
[2022-10-21 06:08] LABS: Hematocrit 33.8 % (42.0-52.0); Hemoglobin 11.5 g/dl (14.0-18.0); Mean Corpuscular Hemoglobin 29.6 pg (27.0-33.0); Mean Corpuscular Volume 87.1 fL (80.0-98.0); Mean Platelet Volume 9.9 fL (9.4-12.4); Red Blood Count 3.88 X10*6/uL (4.60-5.80); Red Cell Distribution Width 13.8 % (11.0-16.0); White Blood Count 2.7 X10*3/uL (4.8-10.8)
[2022-10-21 06:09] LABS: Platelet Count 43 X10*3/uL (160-400)
[2022-10-21 06:43] LABS: Alanine Aminotransferase 22 U/L (0-40); Albumin Level 3.2 g/dL (3.5-5.0); Alkaline Phosphatase 71 U/L (39-117); Anion Gap 11 (12-20); Aspartate Amino Transferase 28 U/L (5-37); Bilirubin Direct 0.3 mg/dL (0.0-0.5); Bilirubin Total 0.9 mg/dL (0.0-1.0); Blood Urea Nitrogen 14 mg/dL (9-16); Calcium 8.4 mg/dL (8.4-10.2); Carbon Dioxide 23 mmol/L (22-29); Chloride 111 mmol/L (96-108); Creatinine Clr Calc Pharmacy 109.6; Estimated Glomerular Filt Rate > 60; Glucose Fasting 113 mg/dL (60-99); Magnesium 1.8 mg/dL (1.6-2.6); Potassium 3.5 mmol/L (3.3-5.1); Sodium 141 mmol/L (135-145); Total Protein 5.5 g/dL (6.5-8.0)
[2022-10-21 08:00] VITALS: BP 133/72; PULSE 76; RESP 18; TEMP 36.5; O2SAT 97
--- NOTE | 2022-10-21 08:21 | PM.DS ---
DS: Providers Provider Date of Service: 10/21/22 Date of admission: 10/18/22 04:16 Primary care physician: Laura Cruz MD Consults: 10/21/22 07:14 Consult to Care Team Routine Comment: Reason for consultation: etoh DS: Diagnosis Discharge Diagnosis (1) Atypical chest pain: Status: Acute DS: Summary Hospital Course Hospital Course: from initial hpi: 57 yo M with hx of KATHYA, ILD, HTN,? history of CHF, history of cirrhosis of the liver, cocaine abuse, COPD, diabetes, hypertension, TBI presents to the hospital complaints of chest pain and shortness of breath. ? patient is not forthcoming with information, he is not a good historian and unable to give? much history.? When asked him questions about what brought him in HS answers yes to all my questions.? Therefore history is obtained mostly from EMR in ED physician.? Patient is homeless, living in the motel, he was laying down he started having chest pain and shortness of breath, when? Iasked the patient where the pain is he? points to his epigastric region, he has also been out of medication for the past 2 months due to loss of transportation.? patient is a daily alcohol drinker, ?unable to get much else from this patient ?we are asked admit this patient for alcohol withdrawal ?on arrival to the ED patient has a heart rate of 106, otherwise hemodynamically stable Labs are significant for ? WBC count of 8.9, CBC otherwise unremarkable, CMP is significant for potassium of 3.2, lactic acid of 4.4, bili of 3.2, AST of 43, urine drug screen negative, BNP of 11, troponin negative x2 ?chest CT angiogram as well as abdominal pelvic CT shows no evidence for pulmonary emboli, no focal airspace disease, chronic appearing changes, diffuse fatty infiltrate of the liver ?while in the ED patient starts withdrawing, and we are? asked to see this patient hospital course: Patient was admitted for atypical chest pain. Was concerned on cardiac as troponins were negative an EKG was unremarkable. This was likely musculoskeletal improved with Tylenol. Resolved will dependence with withdrawal and acute hepatitis and pancytopenia he was treated with phenobarbital protocol thiamine, folic acid, withdrawal resolved. Patient is encouraged to discontinue alcohol use. Patient was noted to have acute lactic acidosis was due to liver disease not sepsis. He had hypokalemia and hypomagnesemia which was replaced. His COPD remained stable. Patient is feeling better will be discharged home. Time Spent with Patient Time attestation: Total time managing care of this patient today ____ minutes. Discharge coordination time: Greater than 30 minutes Quality: Safe Use of Opioids Does Pt have an Active Cancer Diagnosis on the Problem List?: No Quality: Stroke Does the patient have a stroke diagnosis?: No Physical Exam Vital Signs: Vital Signs: Last Vital Signs Temp 97.7 F 10/21/22 08:00 Pulse 76 10/21/22 08:00 Resp 18 10/21/22 08:00 BP 133/72 10/21/22 08:00 Pulse Ox 97 10/21/22 08:00 O2 Del Method 10/21/22 08:00 BMI result Body Mass Index 30.5 General: AO X 3, no acute distress Resp: CTA bilateral, no accessory muscles used CVS: S1,S2,RRR GI: soft, non tender, non distended Neuro: motor grossly intact, alert Psych: appropriate affect, appropriate insight DS: Data Data Completed and Pending Completed studies during hospitalization [Text1]: Procedures Detoxification Services for Substance Abuse Treatment (02/11/22) Labs on day of discharge: Laboratory Results - last 24 hr 10/20/22 10/21/22 10/21/22 05:34 05:59 05:59 WBC 2.7 L RBC 3.88 L Hgb 11.5 L Hct 33.8 L MCV 87.1 MCH 29.6 MCHC 34.0 RDW 13.8 Plt Count 43 L MPV 9.9 Absolute Nucleated RBC 0.000 Nucleated RBC % (auto) 0.0 Smear Path Review SEE NOTE Sodium 141 Potassium 3.5 Chloride 111 H Carbon Dioxide 23 Anion Gap 11 L BUN 14 Creatinine 0.82 Estim Creat Clear Calc 109.6 Estimated GFR > 60 Fasting Glucose 113 H Calcium 8.4 Magnesium 1.8 Total Bilirubin 0.9 Direct Bilirubin 0.3 AST 28 ALT 22 Alkaline Phosphatase 71 Total Protein 5.5 L Albumin 3.2 L Preliminary micro results at discharge 10/17/22 17:03 Blood Culture - Preliminary Blood - Venous No growth after 48 hours. 10/17/22 16:49 Blood Culture - Preliminary Blood - Venous No growth after 48 hours. Discharge Plan Discharge Anticipated Discharge Date/Time: 10/21/22 08:19 Patient Disposition: Home, Self-Care Discharge Diagnosis: etoh withdrawal Referrals: Laura Cruz MD [Primary Care Provider] - 1 Week Discharge Medications: Continued trazodone 50 mg tablet 1 tab PO BEDTIME amlodipine 5 mg tablet 1 tab PO DAILY pantoprazole 40 mg tablet,delayed release (DR/EC) 1 tab PO DAILY ibuprofen 400 mg tablet 1 tab PO TID albuterol sulfate 90 mcg/actuation HFA aerosol inhaler 2 inh inhalation Q4H paroxetine HCl 40 mg tablet 1 tab PO QAM ondansetron 4 mg tablet,disintegrating 4 mg PO TID PRN (Reason: Nausea) oxycodone 5 mg tablet 1 tab PO Q6H PRN (Reason: severe pain) hydroxyzine pamoate 25 mg capsule 25 mg PO BID nicotine (polacrilex) 4 mg lozenge 1 ea PO QID PRN (Reason: Withdrawal Symptoms) bupropion HCl 150 mg tablet extended release 24 hr 1 tab PO DAILY (DME) FreeStyle Lite Strips Strip See Rx Instructions Not Applicable TID Qty: 10 Rx Instructions: As directed (DME) lancets [Ultra-Care Lancets] 30 gauge misc See Rx Instructions .ROUTE TID Qty: 100 Rx Instructions: As directed (DME) BD AutoShield Duo Pen Needle 30 gauge x 3/16 needle See Rx Instructions .ROUTE .MEDSUPPLY Qty: 100 Rx Instructions: As directed Discharge Orders: Discharge Order (Routine); Ordered 10/21/22 Ordered By: Sylvester Armenta Diet: Advance to usual diet Activity on Discharge: As tolerated Stand Alone Forms: Patient Portal Discharge page Care Plan Goals: recovery Health Concerns: etoh Plan of Treatment: avoid etoh Assessment: see above
[2022-10-21] MEDS: buPROPion HCl XL 150 MG TAB.ER.24H PO (08:43)
[2022-10-21] MEDS: PHENobarbitaL 30 MG TABLET PO (08:43)
[2022-10-21] MEDS: amLODIPine Besylate 5 MG TABLET PO (08:43)
[2022-10-21] MEDS: Ibuprofen 400 MG TABLET PO (08:43)
[2022-10-21] MEDS: Folic Acid 1 MG TABLET PO (08:43)
[2022-10-21] MEDS: Thiamine HCL 100 MG TABLET PO (08:43)
[2022-10-21] MEDS: 0.9 % Sodium Chloride Flush 3 ML SYRINGE IVFLUSH (08:44)
[2022-10-21] MEDS: PARoxetine HCL 40 MG TABLET PO (08:44)
[2022-10-21] MEDS: Magnesium Oxide 400 MG TABLET PO (08:44)
[2022-10-21] MEDS: hydrOXYzine HCL 25 MG TABLET PO (08:44)
--- NOTE | 2022-10-21 08:51 | MHC.CM.PN ---
PT TO DC HOME TODAY WITH NO SERVICES PT TO ARRANGE TRANSPORT
[2022-10-21] MEDS: Albuterol Sulfate 90 MCG 8 GM INHALER 2 PUFF INHALE (11:34)
[2022-10-21 11:37] VITALS: RESP 18; O2SAT 92
--- NOTE | 2022-10-21 13:54 | MHC.RECOVRN ---
This proposal lead writer went to meet w/ patient, after addiction consult was placed to review recovery supports at bedside. Patient d/c.
== END 2022-10-21 12:45 | disposition home or self-care (01) | DRG 433 ==
LOC: HO.ED 10-18 01:29 → HO.EDOVER 10-18 04:22 → HO.S3 10-18 12:50
PROVIDERS: Admitting Provider Internal Medicine; Emergency Provider Emergency Medicine; PCP Internal Medicine; Visit Provider Internal Medicine
DX: K70.10 Alcoholic hepatitis without ascites (principal); D61.818 Other pancytopenia; F10.239 Alcohol dependence with withdrawal, unspecified; E87.21 Acute metabolic acidosis; E87.6 Hypokalemia; Y90.6 Blood alcohol level of 120-199 mg/100 ml; F10.229 Alcohol dependence with intoxication, unspecified; E83.42 Hypomagnesemia; G47.33 Obstructive sleep apnea (adult) (pediatric); F17.210 Nicotine dependence, cigarettes, uncomplicated; Z20.822 Contact with and (suspected) exposure to COVID-19; Z71.6 Tobacco abuse counseling; Z87.820 Personal history of traumatic brain injury; Z79.899 Other long term (current) drug therapy
CPT/HCPCS: 36415; 71275; 74176; 80048; 80053; 80076; 80307; 82077; 83605; 83690; 83735; 83880; 84484; 85025; 85027; 85379; 85610; 87040; 87635; 93005; 94640; 99221; 99285; J1650; J2060; J2405; J2560; J3475; Q9967

== ENCOUNTER 2022-11-03 10:57 | Emergency (ER) | payer MEDICARE, MEDICAID, SELFPAY ==
--- NOTE | ~2022-11-03 | CT_ITS ---
EXAMINATION: CT HEAD WITHOUT CONTRAST CLINICAL INFORMATION: Trauma. COMPARISON: Head CT scan dated 05/07/2022. TECHNIQUE: Contiguous axial imaging was performed from the skull base to vertex without intravenous administration of contrast. Coronal and sagittal reformatted images were obtained. This CT examination was performed using dose optimization techniques as appropriate, variously including the following: *Automated exposure control *Adjustment of mA and/or kV according to patient size (this includes techniques or standardized protocols for targeted exams where dose is matched to indication/reason for exam; i.e. extremities or head) *Use of iterative reconstruction technique DLP: 657 mGy-cm FINDINGS: There is mild widening of the cortical sulci and associated ventriculomegaly. The lateral ventricles are symmetrical. The third and fourth ventricles are in their normal midline position. Mild periventricular microvascular changes are seen. The basilar and prepontine cisterns are unremarkable. There is no acute intra or extracerebral abnormality. There is no mass effect or midline shift. Sections through the bony calvarium show left temporal parietal postsurgical changes, but no acute abnormality. The orbits are intact. The paranasal sinuses are clear. The mastoid air cells are clear. Mild anterior nasal septal deviation, apex of the right. CT/CT head/brain wo IV con IMPRESSION: No acute intracranial pathology.
--- NOTE | ~2022-11-03 | XR_ITS ---
EXAMINATION: XR KNEE, LEFT CLINICAL INFORMATION: Trauma with pain COMPARISON: None TECHNIQUE: Four views of the left knee. FINDINGS: Patient status post left knee total arthroplasty. No acute fracture or dislocation is evident. No significant knee effusion is seen. There is some calcific density seen overlying the region of the suprapatellar bursa and may represent calcification communicating with the joint. Vascular calcifications are present. XR/XR knee LT 4V IMPRESSION: Status post left knee total arthroplasty without evidence of acute fracture or dislocation. Question calcification within suprapatellar bursa.
--- NOTE | 2022-11-03 11:07 | ECG_ITS ---
Test Reason : ETOH Blood Pressure : / mmHG Vent. Rate : 081 BPM Atrial Rate : 081 BPM P-R Int : 180 ms QRS Dur : 078 ms QT Int : 372 ms P-R-T Axes : 038 014 018 degrees QTc Int : 432 ms Normal sinus rhythm Normal ECG When compared with ECG of 17-OCT-2022 16:18, Premature ventricular complexes are no longer Present Nonspecific T wave abnormality no longer evident in Lateral leads Referred By: Gianni Patel Electronically Signed By:VIJI BRAY MD
[2022-11-03 11:12] VITALS: BP 142/90; PULSE 81; RESP 14; TEMP 36.5; O2SAT 95
[2022-11-03 11:41] LABS: MANUAL DIFF FLAG NO
[2022-11-03 11:45] LABS: Basophils Absolute Auto 0.1 X10*3/uL (0.0-0.2); Basophils Percent Auto 1.5 % (0-2); Eosinophils Absolute Auto 0.2 X10*3/uL (0.0-0.4); Eosinophils Percent Auto 3.7 % (0-4); Hemoglobin 14.3 g/dl (14.0-18.0); Imm Gran Abs Auto 0.02 X10*3/uL (0.00-0.03); Imm Gran Pct Auto 0.3 % (0.0-0.4); Lymphocytes Absolute Auto 2.4 X10*3/uL (1.2-4.9); Lymphocytes Percent Auto 40.3 % (20-40); Mean Corpuscular HGB Conc 33.3 g/dl (31.0-36.0); Mean Corpuscular Hemoglobin 29.3 pg (27.0-33.0); Mean Corpuscular Volume 88.1 fL (80.0-98.0); Mean Platelet Volume 9.6 fL (9.4-12.4); Monocytes Absolute Auto 0.4 X10*3/uL (0.1-1.2); Monocytes Percent Auto 6.3 % (2-11); Neutrophils Absolute Auto 2.8 x10*3/uL (2.0-8.3); Neutrophils Percent Auto 47.9 % (45-73); Platelet Count 158 X10*3/uL (160-400); Red Blood Count 4.88 X10*6/uL (4.60-5.80); Red Cell Distribution Width 14.1 % (11.0-16.0); White Blood Count 5.9 X10*3/uL (4.8-10.8)
[2022-11-03 12:01] LABS: Alanine Aminotransferase 50 U/L (0-40); Alkaline Phosphatase 98 U/L (39-117); Anion Gap 15 (12-20); Aspartate Amino Transferase 48 U/L (5-37); Bilirubin Total 0.7 mg/dL (0.0-1.0); Blood Urea Nitrogen 8 mg/dL (9-16); Calcium 8.7 mg/dL (8.4-10.2); Carbon Dioxide 26 mmol/L (22-29); Chloride 109 mmol/L (96-108); Creatinine Clr Calc Pharmacy 100.8; Estimated Glomerular Filt Rate > 60; Ethanol 297 mg/dL; Glucose Random 160 mg/dL (60-115); Lipase 22 U/L (8-78); Potassium 3.8 mmol/L (3.3-5.1); Sodium 146 mmol/L (135-145); Total Protein 7.1 g/dL (6.5-8.0)
--- NOTE | 2022-11-03 14:00 | ED_ITS ---
HPI - General Adult General Chief complaint: ETOH/Substance Use Stated complaint: ETOH, requesting detox, fall per EMS Time Seen by Provider: 11/03/22 11:04 Source: patient History of Present Illness HPI narrative: Patient fell while he was attempting to check into [facility] for detox. He bumped his head hurt his left knee. He denies loss of consciousness. He complains of left knee pain. He has a history of bilateral knee replacements. He denies neck back chest abdomen or other extremity injury. Positive alcohol intake today per patient Related Data Home Medications Medication Instructions Recorded Confirmed blood sugar diagnostic (FreeStyle #10 ea 09/08/21 02/11/22 Lite Strips) lancets 30 gauge (Ultra-Care #100 ea 09/08/21 02/11/22 Lancets) pen needle,diabetic dual safty 30 #100 ea 09/08/21 02/11/22 gauge x 3/16 (BD AutoShield Duo Pen Needle) albuterol sulfate 90 mcg/actuation 2 inh inhalation Q4H 10/18/22 10/18/22 aerosol inhaler amlodipine 5 mg tablet 1 tab PO DAILY 10/18/22 10/18/22 bupropion HCl 150 mg 24 hr tablet, 1 tab PO DAILY 10/18/22 10/18/22 extended release hydroxyzine pamoate 25 mg capsule 25 mg PO BID 10/18/22 10/18/22 ibuprofen 400 mg tablet 1 tab PO TID 10/18/22 10/18/22 nicotine (polacrilex) 4 mg buccal 1 ea PO QID PRN Withdrawal Symptoms 10/18/22 10/18/22 lozenge ondansetron 4 mg disintegrating 4 mg PO TID PRN Nausea 10/18/22 10/18/22 tablet oxycodone 5 mg tablet 1 tab PO Q6H PRN severe pain 10/18/22 10/18/22 pantoprazole 40 mg tablet,delayed 1 tab PO DAILY 10/18/22 10/18/22 release paroxetine HCl 40 mg tablet 1 tab PO QAM 10/18/22 10/18/22 trazodone 50 mg tablet 1 tab PO BEDTIME 10/18/22 10/18/22 Allergies Allergy/AdvReac Type Severity Reaction Status Date / Time No Known Allergies Allergy Verified 10/17/22 15:59 [No Known Allergies*] Review of Systems Constitutional: Comments: No recent illness ENT: Comments: Right periorbital ecchymosis per patient Cardiovascular: Comments: No chest Respiratory: Comments: No dyspnea Gastrointestinal: Comments: No abdominal pain Musculoskeletal: Comments: Left knee pain Integumentary/Breasts: Comments: Abrasions to face Neurologic: Comments: No focal deficit [facility] Past Medical History Medical History (Updated 11/03/22 @ 15:03 by Gianni Patel MD) Alcohol use disorder, moderate, dependence Anxiety CHF (congestive heart failure) Cirrhosis of liver Cocaine abuse COPD (chronic obstructive pulmonary disease) Diabetes Hypertension Interstitial lung disease Obesity (BMI 35.0-39.9 without comorbidity) KATHYA (obstructive sleep apnea) Smoker TBI (traumatic brain injury) Surgical History H/O brain surgery No significant past surgical history Family History Family History Other Lymphoma Social History Social History Household Members: Other Household Members Other:: 2 roommates Housing: Apartment Housing Other:: Sober House Do you presently have visiting nurse or other home services: No Alcohol intake: current Alcohol intake frequency: 3 or more drinks per day Alcohol type: hard liquor Patient Tobacco Use Status: Current everyday Tobacco user Tobacco use type: Cigarette Cigarette Packs Per Day: 0.5 Cigarettes Per Day: 10.0 Years Smoked: 40 Second Hand Smoke Exposure: Yes Substance Use Type: Crack/Cocaine Advance Directives: Yes Advance Directives on File: Yes Advance Directives Date on File: 05/20/21 service: No Current occupational status: unemployed and disabled Physical Exam ED Vital Signs: Vital Signs - 24 hr 11/03/22 11:12 Temperature 97.7 F Pulse Rate 81 Respiratory Rate 14 Blood Pressure 142/90 H Pulse Oximetry 95 Oxygen Delivery Method Nasal Cannula BMI result Body Mass Index 30.0 Const Other: Awake alert. No acute distress HENMT Other: Positive ETOH type halitosis Abrasion to right forehead Eyes Other: Right-sided periorbital abrasions and ecchymosis Neck Other: No C-spine tenderness Resp Other: Clear and equal bilaterally without respiratory distress Cardio Other: Regular rate and rhythm without murmurs rubs or gallops GI Other: Soft nontender nondistended Skin Other: Warm pink and dry without rash Neuro Other: Nonfocal exam Extrem Other: Left knee with some pain on range of motion and old well-healed anterior surgical scar. No crepitus deformity or swelling noted. Medical Decision Making Medical Decision Making MDM Narrative: Left knee contusion versus fracture X-ray shows no evidence of fracture dislocation or hardware displacement. Head contusion versus intracranial hemorrhage. Head CT shows no intracranial hemorrhage. Alcohol use disorder and intoxication. Patient request detox. Care team consult to. 15:02. Patient seen by care team. Right range to [facility] for detox. Stable for discharge home with final diagnosis of alcohol use disorder, facial contusions, knee contusion Lab Data 11/03/22 11:37 11/03/22 11:37 Labs: Lab Results 11/03/22 11/03/22 11/03/22 Range/Units 11:37 11:37 11:37 WBC 5.9 (4.8-10.8) X10*3/uL RBC 4.88 D (4.60-5.80) X10*6/uL Hgb 14.3 D (14.0-18.0) g/dl Hct 43.0 D (42.0-52.0) % MCV 88.1 (80.0-98.0) fL MCH 29.3 (27.0-33.0) pg MCHC 33.3 (31.0-36.0) g/dl RDW 14.1 (11.0-16.0) % Plt Count 158 L D (160-400) X10*3/uL MPV 9.6 (9.4-12.4) fL Immature Gran % (Auto) 0.3 (0.0-0.4) % Neut % (Auto) 47.9 (45-73) % Lymph % (Auto) 40.3 H (20-40) % Brooke % (Auto) 6.3 (2-11) % Eos % (Auto) 3.7 (0-4) % Baso % (Auto) 1.5 (0-2) % Lymph # (Auto) 2.4 (1.2-4.9) X10*3/uL Brooke # (Auto) 0.4 (0.1-1.2) X10*3/uL Eos # (Auto) 0.2 (0.0-0.4) X10*3/uL Baso # (Auto) 0.1 (0.0-0.2) X10*3/uL Abs Immat Gran (auto) 0.02 (0.00-0.03) X10*3/uL Absolute Neuts (auto) 2.8 (2.0-8.3) x10*3/uL Absolute Nucleated RBC 0.000 (0.0-0.012) X10*3/uL Nucleated RBC % (auto) 0.0 (0.0-0.2) /100WBC Sodium 146 H (135-145) mmol/L Potassium 3.8 (3.3-5.1) mmol/L Chloride 109 H (96-108) mmol/L Carbon Dioxide 26 (22-29) mmol/L Anion Gap 15 (12-20) BUN 8 L (9-16) mg/dL Creatinine 0.94 (0.5-1.4) mg/dL Estim Creat Clear Calc 100.8 Estimated GFR > 60 Random Glucose 160 H (60-115) mg/dL Calcium 8.7 (8.4-10.2) mg/dL Total Bilirubin 0.7 (0.0-1.0) mg/dL AST 48 H (5-37) U/L ALT 50 H (0-40) U/L Alkaline Phosphatase 98 (39-117) U/L Total Protein 7.1 (6.5-8.0) g/dL Albumin 4.0 (3.5-5.0) g/dL Lipase 22 (8-78) U/L Ethyl Alcohol 297 Cancelled mg/dL 11/03/22 Range/Units 11:37 WBC (4.8-10.8) X10*3/uL RBC (4.60-5.80) X10*6/uL Hgb (14.0-18.0) g/dl Hct (42.0-52.0) % MCV (80.0-98.0) fL MCH (27.0-33.0) pg MCHC (31.0-36.0) g/dl RDW (11.0-16.0) % Plt Count (160-400) X10*3/uL MPV (9.4-12.4) fL Immature Gran % (Auto) (0.0-0.4) % Neut % (Auto) (45-73) % Lymph % (Auto) (20-40) % Brooke % (Auto) (2-11) % Eos % (Auto) (0-4) % Baso % (Auto) (0-2) % Lymph # (Auto) (1.2-4.9) X10*3/uL Brooke # (Auto) (0.1-1.2) X10*3/uL Eos # (Auto) (0.0-0.4) X10*3/uL Baso # (Auto) (0.0-0.2) X10*3/uL Abs Immat Gran (auto) (0.00-0.03) X10*3/uL Absolute Neuts (auto) (2.0-8.3) x10*3/uL Absolute Nucleated RBC (0.0-0.012) X10*3/uL Nucleated RBC % (auto) (0.0-0.2) /100WBC Sodium (135-145) mmol/L Potassium (3.3-5.1) mmol/L Chloride (96-108) mmol/L Carbon Dioxide (22-29) mmol/L Anion Gap (12-20) BUN (9-16) mg/dL Creatinine (0.5-1.4) mg/dL Estim Creat Clear Calc Estimated GFR Random Glucose (60-115) mg/dL Calcium (8.4-10.2) mg/dL Total Bilirubin (0.0-1.0) mg/dL AST (5-37) U/L ALT (0-40) U/L Alkaline Phosphatase (39-117) U/L Total Protein (6.5-8.0) g/dL Albumin (3.5-5.0) g/dL Lipase Cancelled (8-78) U/L Ethyl Alcohol mg/dL Discharge Plan Discharge Clinical Impression: Alcohol use disorder, Contusion of face, Contusion of knee, left Patient Disposition: Home, Self-Care Instructions: Alcohol Use Disorder (ED), Facial Contusion (ED), Contusion in Adults (ED) Prescriptions: No Action trazodone 50 mg tablet 1 tab PO BEDTIME amlodipine 5 mg tablet 1 tab PO DAILY pantoprazole 40 mg tablet,delayed release (DR/EC) 1 tab PO DAILY ibuprofen 400 mg tablet 1 tab PO TID albuterol sulfate 90 mcg/actuation HFA aerosol inhaler 2 inh inhalation Q4H paroxetine HCl 40 mg tablet 1 tab PO QAM ondansetron 4 mg tablet,disintegrating 4 mg PO TID PRN (Reason: Nausea) oxycodone 5 mg tablet 1 tab PO Q6H PRN (Reason: severe pain) hydroxyzine pamoate 25 mg capsule 25 mg PO BID nicotine (polacrilex) 4 mg lozenge 1 ea PO QID PRN (Reason: Withdrawal Symptoms) bupropion HCl 150 mg tablet extended release 24 hr 1 tab PO DAILY (DME) FreeStyle Lite Strips Strip See Rx Instructions Not Applicable TID Qty: 10 Rx Instructions: As directed (DME) lancets [Ultra-Care Lancets] 30 gauge misc See Rx Instructions .ROUTE TID Qty: 100 Rx Instructions: As directed (DME) BD AutoShield Duo Pen Needle 30 gauge x 3/16 needle See Rx Instructions .ROUTE .MEDSUPPLY Qty: 100 Rx Instructions: As directed
--- NOTE | 2022-11-03 16:18 | MHC.RECOVRN ---
Pt medically cleared to present to [facility]. Spoke with Raisa at , bed has been held for pt. Pt to al and will be transported via [employer].
== END 2022-11-03 15:40 | disposition home or self-care (01) ==
PROVIDERS: Emergency Provider Emergency Medicine; PCP Internal Medicine
DX: F10.20 Alcohol dependence, uncomplicated (principal); Y90.8 Blood alcohol level of 240 mg/100 ml or more; S00.83XA Contusion of other part of head, initial encounter; S80.02XA Contusion of left knee, initial encounter; W19.XXXA Unspecified fall, initial encounter; E11.9 Type 2 diabetes mellitus without complications; I10 Essential (primary) hypertension; F14.10 Cocaine abuse, uncomplicated; Z96.653 Presence of artificial knee joint, bilateral; Z87.820 Personal history of traumatic brain injury; F17.210 Nicotine dependence, cigarettes, uncomplicated; Y93.89 Activity, other specified; Y92.538 Other ambulatory health services establishments as the place of occurrence of the external cause; Y99.8 Other external cause status; Z79.899 Other long term (current) drug therapy
CPT/HCPCS: 36415; 70450; 73564; 80053; 82077; 83690; 85025; 93005; 99284

== ENCOUNTER 2022-11-05 20:09 | Emergency (ER) | payer MEDICARE, MEDICAID, SELFPAY ==
--- NOTE | 2022-11-05 | ECG_ITS ---
Test Reason : CHEST PAIN Blood Pressure : / mmHG Vent. Rate : 098 BPM Atrial Rate : 098 BPM P-R Int : 170 ms QRS Dur : 072 ms QT Int : 344 ms P-R-T Axes : 029 015 008 degrees QTc Int : 439 ms Normal sinus rhythm Normal ECG When compared with ECG of 03-NOV-2022 11:41, No significant change was found Referred By: Generic ED Physician Electronically Signed By:VIJI BRAY MD
--- NOTE | ~2022-11-05 | XR_ITS ---
EXAMINATION: XR CHEST CLINICAL INFORMATION: Chest pain COMPARISON: CTA chest on 10/17/2022 TECHNIQUE: 2 views of the chest were obtained. FINDINGS: No significant abnormality is noted involving the heart, lungs, mediastinum, bony thorax or soft tissues. XR/XR chest 2V IMPRESSION: Unremarkable examination.
[2022-11-05 20:30] VITALS: BP 136/79; BP 138/96; PULSE 102; PULSE 98; RESP 16; TEMP 36.2; O2SAT 98; BMI 37.2
[2022-11-05 23:37] LABS: Hematocrit 36.9 % (42.0-52.0); Hemoglobin 12.4 g/dl (14.0-18.0); Mean Corpuscular HGB Conc 33.6 g/dl (31.0-36.0); Mean Corpuscular Volume 86.2 fL (80.0-98.0); Mean Platelet Volume 9.7 fL (9.4-12.4); Platelet Count 116 X10*3/uL (160-400); Red Blood Count 4.28 X10*6/uL (4.60-5.80); Red Cell Distribution Width 13.2 % (11.0-16.0); White Blood Count 5.7 X10*3/uL (4.8-10.8)
[2022-11-05 23:45] LABS: Alanine Aminotransferase 34 U/L (0-40); Albumin Level 3.9 g/dL (3.5-5.0); Alkaline Phosphatase 95 U/L (39-117); Anion Gap 15 (12-20); Aspartate Amino Transferase 29 U/L (5-37); Bilirubin Total 1.5 mg/dL (0.0-1.0); Blood Urea Nitrogen 15 mg/dL (9-16); Calcium 8.8 mg/dL (8.4-10.2); Carbon Dioxide 22 mmol/L (22-29); Chloride 105 mmol/L (96-108); Creatinine Clr Calc Pharmacy 94.5; Estimated Glomerular Filt Rate > 60; Glucose Random 102 mg/dL (60-115); Potassium 3.8 mmol/L (3.3-5.1); Sodium 138 mmol/L (135-145); Total Protein 6.6 g/dL (6.5-8.0)
[2022-11-05 23:48] LABS: Troponin-I High Sensitivity < 3.5 ng/L (<3.5-35.0)
[2022-11-05 23:52] VITALS: BP 114/46; PULSE 79; RESP 18; O2SAT 99
--- NOTE | 2022-11-06 00:31 | ED.CHESTPAIN ---
HPI - Chest Pain General Chief Complaint: Chest Pain Stated Complaint: Abdominal Pain/ Chest Pain Time Seen by Provider: 11/06/22 00:28 Source: patient Mode of arrival: ambulatory History of Present Illness HPI narrative: 57-year-old male who was at [facility] for 3 days for detox left today at 14:00 stating that he wanted to look for his LINDA card and had 3 drinks. He is brought in by EMS for complaints of chest pain and states he also had some abdominal discomfort. Patient states that he typically has a motel room he can go back to but he is homeless right now and has no way to pay for the motel room because his LINDA cart is lost. Patient states that he tried to go back to [facility] but they would not let him re-enter. Related Data Home Medications Medication Instructions Recorded Confirmed blood sugar diagnostic (FreeStyle #10 ea 09/08/21 02/11/22 Lite Strips) lancets 30 gauge (Ultra-Care #100 ea 09/08/21 02/11/22 Lancets) pen needle,diabetic dual safty 30 #100 ea 09/08/21 02/11/22 gauge x 3/16 (BD AutoShield Duo Pen Needle) albuterol sulfate 90 mcg/actuation 2 inh inhalation Q4H 10/18/22 10/18/22 aerosol inhaler amlodipine 5 mg tablet 1 tab PO DAILY 10/18/22 10/18/22 bupropion HCl 150 mg 24 hr tablet, 1 tab PO DAILY 10/18/22 10/18/22 extended release hydroxyzine pamoate 25 mg capsule 25 mg PO BID 10/18/22 10/18/22 ibuprofen 400 mg tablet 1 tab PO TID 10/18/22 10/18/22 nicotine (polacrilex) 4 mg buccal 1 ea PO QID PRN Withdrawal Symptoms 10/18/22 10/18/22 lozenge ondansetron 4 mg disintegrating 4 mg PO TID PRN Nausea 10/18/22 10/18/22 tablet oxycodone 5 mg tablet 1 tab PO Q6H PRN severe pain 10/18/22 10/18/22 pantoprazole 40 mg tablet,delayed 1 tab PO DAILY 10/18/22 10/18/22 release paroxetine HCl 40 mg tablet 1 tab PO QAM 10/18/22 10/18/22 trazodone 50 mg tablet 1 tab PO BEDTIME 10/18/22 10/18/22 Allergies Allergy/AdvReac Type Severity Reaction Status Date / Time No Known Allergies Allergy Verified 10/17/22 15:59 [No Known Allergies*] Review of Systems Review of Systems: Pertinent positives and negatives as stated in HPI [facility] Past Medical History Source: nursing notes reviewed Medical History Alcohol use disorder, moderate, dependence Anxiety CHF (congestive heart failure) Cirrhosis of liver Cocaine abuse COPD (chronic obstructive pulmonary disease) Diabetes Hypertension Interstitial lung disease Obesity (BMI 35.0-39.9 without comorbidity) KATHYA (obstructive sleep apnea) Smoker TBI (traumatic brain injury) Surgical History H/O brain surgery No significant past surgical history Family History Family History Other Lymphoma Social History Social History Household Members: Other Household Members Other:: 2 roommates Housing: Apartment Housing Other:: Sober House Do you presently have visiting nurse or other home services: No Alcohol intake: current Alcohol intake frequency: 3 or more drinks per day Alcohol type: hard liquor Patient Tobacco Use Status: Current everyday Tobacco user Tobacco use type: Cigarette Cigarette Packs Per Day: 0.5 Cigarettes Per Day: 10.0 Years Smoked: 40 Second Hand Smoke Exposure: Yes Substance Use Type: Crack/Cocaine Advance Directives: Yes Advance Directives on File: Yes Advance Directives Date on File: 05/20/21 service: No Current occupational status: unemployed and disabled Physical Exam Vital Signs: Vital Signs: Last Vital Signs Temp 97.1 F 11/05/22 20:30 Pulse 79 11/05/22 23:52 Resp 18 11/05/22 23:52 BP 114/46 L 11/05/22 23:52 Pulse Ox 99 11/05/22 23:52 O2 Del Method 11/05/22 23:52 BMI result Body Mass Index 37.2 VITAL SIGNS: Reviewed. GENERAL: Well developed, well nourished, in no acute distress. HEAD: Normocephalic/atraumatic, EYES: PERRLA, EOMI EARS: Ext canals without abnormality LUNGS: Normal breath sounds. No adventitious sounds or accessory muscle use. SpO2<99> CARDIOVASCULAR: Regular rate and rhythm without noted murmurs, no JVD or lower extremity edema. ABDOMEN: Soft, non-tender, non-distended with bowel sounds. MUSCULOSKELETAL: No tenderness, deformities, or effusions noted on gross inspection. EXTREMITIES: No cyanosis, clubbing or edema. SKIN: Inspection of the skin reveals no rashes NEUROLOGIC: Alert and oriented x 4. Strength and sensation to light touch were grossly intact x 4. Medical Decision Making Medical Decision Making [facility] Narrative: This is a 57-year-old male with history and clinical presentation after review of all investigations consistent with alcoholic gastritis, as there are no findings to suggest pancreatitis, pneumonia, cardiac ischemia. He is otherwise discharged to the waiting room but a care team consultation has been placed to help assist the patient on reentry to [facility]. Differential Diagnosis Please see the discussion above Lab Data Please see the discussion above 11/05/22 23:14 11/05/22 23:19 Labs: Lab Results 11/05/22 11/05/22 11/05/22 Range/Units 23:14 23:14 23:19 WBC 5.7 (4.8-10.8) X10*3/uL RBC 4.28 L (4.60-5.80) X10*6/uL Hgb 12.4 L (14.0-18.0) g/dl Hct 36.9 L (42.0-52.0) % MCV 86.2 (80.0-98.0) fL MCH 29.0 (27.0-33.0) pg MCHC 33.6 (31.0-36.0) g/dl RDW 13.2 (11.0-16.0) % Plt Count 116 L D (160-400) X10*3/uL MPV 9.7 (9.4-12.4) fL Absolute Nucleated RBC 0.000 (0.0-0.012) X10*3/uL Nucleated RBC % (auto) 0.0 (0.0-0.2) /100WBC Sodium 138 (135-145) mmol/L Potassium 3.8 (3.3-5.1) mmol/L Chloride 105 (96-108) mmol/L Carbon Dioxide 22 (22-29) mmol/L Anion Gap 15 (12-20) BUN 15 (9-16) mg/dL Creatinine 0.86 (0.5-1.4) mg/dL Estim Creat Clear Calc 94.5 Estimated GFR > 60 Random Glucose 102 (60-115) mg/dL Calcium 8.8 (8.4-10.2) mg/dL Total Bilirubin 1.5 H (0.0-1.0) mg/dL AST 29 (5-37) U/L ALT 34 (0-40) U/L Alkaline Phosphatase 95 (39-117) U/L Troponin I High Sens < 3.5 (<3.5-35.0) ng/L Total Protein 6.6 (6.5-8.0) g/dL Albumin 3.9 (3.5-5.0) g/dL Lipase 20 (8-78) U/L Ethyl Alcohol < 10 mg/dL Independent Interpretation I performed an independent interpretation of an: EKG Interpretation: Normal sinus rhythm, HR-98, no STEMI, [place]/QRS/QTC are within normal limits. Radiology Impression Radiologist Impression: My interpretation is in agreement with radiology's impression of the imaging study. External Record Review External record reviewed: Outpatient record and Prior outpatient labs Chronic Conditions Patient?s care impacted by: Hypertension Discharge Plan Discharge Clinical Impression: Alcoholic gastritis Patient Disposition: Home, Self-Care Instructions: Diet for Stomach Ulcers and Gastritis (ED), Gastritis (ED) Additional Instructions: 1. Resume all home medications as prescribed. 2. The care team will try to arrange for re-entry into [facility] in the morning. Return to the ER for any worsening symptoms. Prescriptions: No Action trazodone 50 mg tablet 1 tab PO BEDTIME amlodipine 5 mg tablet 1 tab PO DAILY pantoprazole 40 mg tablet,delayed release (DR/EC) 1 tab PO DAILY ibuprofen 400 mg tablet 1 tab PO TID albuterol sulfate 90 mcg/actuation HFA aerosol inhaler 2 inh inhalation Q4H paroxetine HCl 40 mg tablet 1 tab PO QAM ondansetron 4 mg tablet,disintegrating 4 mg PO TID PRN (Reason: Nausea) oxycodone 5 mg tablet 1 tab PO Q6H PRN (Reason: severe pain) hydroxyzine pamoate 25 mg capsule 25 mg PO BID nicotine (polacrilex) 4 mg lozenge 1 ea PO QID PRN (Reason: Withdrawal Symptoms) bupropion HCl 150 mg tablet extended release 24 hr 1 tab PO DAILY (DME) FreeStyle Lite Strips Strip See Rx Instructions Not Applicable TID Qty: 10 Rx Instructions: As directed (DME) lancets [Ultra-Care Lancets] 30 gauge misc See Rx Instructions .ROUTE TID Qty: 100 Rx Instructions: As directed (DME) BD AutoShield Duo Pen Needle 30 gauge x 3/16 needle See Rx Instructions .ROUTE .MEDSUPPLY Qty: 100 Rx Instructions: As directed
[2022-11-06 00:51] LABS: Ethanol < 10 mg/dL; Lipase 20 U/L (8-78)
[2022-11-06] MEDS: Magnesium Hydrox/Alum Hydrox 30 ML ORAL.SUSP PO (02:31)
[2022-11-06] MEDS: Lidocaine HCl Viscous 2 % 15 ML SOLUTION 10 ML MUCOUS MEM (02:31)
== END 2022-11-06 02:34 | disposition home or self-care (01) ==
PROVIDERS: Emergency Provider Student in an Organized Health Care Education/Training Program
DX: K29.20 Alcoholic gastritis without bleeding (principal); R07.89 Other chest pain; R10.9 Unspecified abdominal pain; F14.10 Cocaine abuse, uncomplicated; F17.210 Nicotine dependence, cigarettes, uncomplicated; Z71.6 Tobacco abuse counseling; Z79.899 Other long term (current) drug therapy
CPT/HCPCS: 36415; 71046; 80053; 82077; 83690; 84484; 85027; 93005; 99283; 99284

== ENCOUNTER 2022-11-26 14:07 | Emergency (ER) | payer MEDICARE, MEDICAID, SELFPAY ==
[2022-11-26] VITALS (7 sets, daily range): BP systolic 160–180; BP diastolic 102–116; PULSE 90–112; RESP 14–22; TEMP 36.7–37.2; O2SAT 95–99; BMI 31.0
--- NOTE | 2022-11-26 | ECG_ITS ---
Test Reason : ETOH WITHDRAWAL Blood Pressure : / mmHG Vent. Rate : 106 BPM Atrial Rate : 106 BPM P-R Int : 160 ms QRS Dur : 074 ms QT Int : 332 ms P-R-T Axes : 025 017 018 degrees QTc Int : 441 ms Sinus tachycardia Otherwise normal ECG When compared with ECG of 05-NOV-2022 20:27, No significant change was found Referred By: Generic ED Physician Electronically Signed By:VIJI BRAY MD
--- NOTE | ~2022-11-26 | XR_ITS ---
EXAMINATION: XR CHEST CLINICAL INFORMATION: Chest pain. COMPARISON: 11/05/2022 chest radiographs. TECHNIQUE: Frontal view of the chest was obtained. FINDINGS: No significant abnormality is noted involving the heart, lungs, mediastinum, bony thorax or soft tissues. XR/XR chest 1V IMPRESSION: No acute cardiopulmonary process.
[2022-11-26 14:37] LABS: MANUAL DIFF FLAG NO
[2022-11-26 14:38] LABS: Basophils Absolute Auto 0.1 X10*3/uL (0.0-0.2); Basophils Percent Auto 1.2 % (0-2); Eosinophils Absolute Auto 0.3 X10*3/uL (0.0-0.4); Eosinophils Percent Auto 3.1 % (0-4); Hematocrit 41.3 % (42.0-52.0); Hemoglobin 14.2 g/dl (14.0-18.0); Imm Gran Abs Auto 0.02 X10*3/uL (0.00-0.03); Imm Gran Pct Auto 0.2 % (0.0-0.4); Lymphocytes Absolute Auto 1.9 X10*3/uL (1.2-4.9); Lymphocytes Percent Auto 23.2 % (20-40); Mean Corpuscular HGB Conc 34.4 g/dl (31.0-36.0); Mean Corpuscular Hemoglobin 28.8 pg (27.0-33.0); Mean Corpuscular Volume 83.8 fL (80.0-98.0); Mean Platelet Volume 9.4 fL (9.4-12.4); Monocytes Absolute Auto 0.5 X10*3/uL (0.1-1.2); Monocytes Percent Auto 6.5 % (2-11); Neutrophils Absolute Auto 5.3 x10*3/uL (2.0-8.3); Neutrophils Percent Auto 65.8 % (45-73); Platelet Count 177 X10*3/uL (160-400); Red Blood Count 4.93 X10*6/uL (4.60-5.80); Red Cell Distribution Width 13.4 % (11.0-16.0)
[2022-11-26 15:00] LABS: Alanine Aminotransferase 27 U/L (0-40); Albumin Level 4.1 g/dL (3.5-5.0); Alkaline Phosphatase 110 U/L (39-117); Anion Gap 19 (12-20); Aspartate Amino Transferase 32 U/L (5-37); Blood Urea Nitrogen 11 mg/dL (9-16); COVID-19 Test Negative (Negative); Calcium 9.3 mg/dL (8.4-10.2); Carbon Dioxide 19 mmol/L (22-29); Chloride 109 mmol/L (96-108); Creatinine Clr Calc Pharmacy 88.8; Estimated Glomerular Filt Rate > 60; Ethanol 56 mg/dL; Glucose Random 151 mg/dL (60-115); IDNOW Serial# 08D9AD1C; Potassium 3.7 mmol/L (3.3-5.1); Sodium 143 mmol/L (135-145); Total Protein 7.2 g/dL (6.5-8.0)
[2022-11-26 15:23] LABS: Troponin-I High Sensitivity < 3.5 ng/L (<3.5-35.0)
--- NOTE | 2022-11-26 15:31 | ED.ALCOHOL ---
HPI - Alcohol General Chief Complaint: ETOH/Substance Use Stated Complaint: ETOH withdrawal per EMS Time Seen by Provider: 11/26/22 14:22 Source: patient Mode of arrival: EMS History of Present Illness HPI narrative: 57-year-old male who is an everyday alcohol drinker is brought in by EMS with tremors and states his last drink was 2 days ago and he denies any seizures when attempting to abstain from alcohol. Related Data Home Medications Medication Instructions Recorded Confirmed blood sugar diagnostic (FreeStyle #10 ea 09/08/21 02/11/22 Lite Strips) lancets 30 gauge (Ultra-Care #100 ea 09/08/21 02/11/22 Lancets) pen needle,diabetic dual safty 30 #100 ea 09/08/21 02/11/22 gauge x 3/16 (BD AutoShield Duo Pen Needle) albuterol sulfate 90 mcg/actuation 2 inh inhalation Q4H 10/18/22 10/18/22 aerosol inhaler amlodipine 5 mg tablet 1 tab PO DAILY 10/18/22 10/18/22 bupropion HCl 150 mg 24 hr tablet, 1 tab PO DAILY 10/18/22 10/18/22 extended release hydroxyzine pamoate 25 mg capsule 25 mg PO BID 10/18/22 10/18/22 ibuprofen 400 mg tablet 1 tab PO TID 10/18/22 10/18/22 nicotine (polacrilex) 4 mg buccal 1 ea PO QID PRN Withdrawal Symptoms 10/18/22 10/18/22 lozenge ondansetron 4 mg disintegrating 4 mg PO TID PRN Nausea 10/18/22 10/18/22 tablet oxycodone 5 mg tablet 1 tab PO Q6H PRN severe pain 10/18/22 10/18/22 pantoprazole 40 mg tablet,delayed 1 tab PO DAILY 10/18/22 10/18/22 release paroxetine HCl 40 mg tablet 1 tab PO QAM 10/18/22 10/18/22 trazodone 50 mg tablet 1 tab PO BEDTIME 10/18/22 10/18/22 Allergies Allergy/AdvReac Type Severity Reaction Status Date / Time No Known Allergies Allergy Verified 10/17/22 15:59 [No Known Allergies*] Review of Systems Review of Systems: Pertinent positives and negatives as stated in HPI [facility] Past Medical History Source: nursing notes reviewed Medical History Alcohol use disorder, moderate, dependence Anxiety CHF (congestive heart failure) Cirrhosis of liver Cocaine abuse COPD (chronic obstructive pulmonary disease) Diabetes Hypertension Interstitial lung disease Obesity (BMI 35.0-39.9 without comorbidity) KATHYA (obstructive sleep apnea) Smoker TBI (traumatic brain injury) Surgical History H/O brain surgery No significant past surgical history Family History Family History Other Lymphoma Social History Social History Household Members: Other Household Members Other:: 2 roommates Housing: Apartment Housing Other:: Sober House Do you presently have visiting nurse or other home services: No Alcohol intake: current Alcohol intake frequency: 3 or more drinks per day Alcohol type: hard liquor Patient Tobacco Use Status: Current everyday Tobacco user Tobacco use type: Cigarette Cigarette Packs Per Day: 0.5 Cigarettes Per Day: 10.0 Years Smoked: 40 Second Hand Smoke Exposure: Yes Substance Use Type: Crack/Cocaine Advance Directives: Yes Advance Directives on File: Yes Advance Directives Date on File: 05/20/21 service: No Current occupational status: unemployed and disabled Physical Exam ED Vital Signs: Vital Signs - 24 hr 11/26/22 14:12 11/26/22 14:32 11/26/22 16:05 Temperature 98.8 F 98.8 F 98.4 F Pulse Rate 107 H 107 H 110 H Respiratory Rate 18 18 16 Blood Pressure 172/111 H 172/111 H 180/115 H Pulse Oximetry 96 96 97 Oxygen Delivery Method Room Air Room Air Room Air BMI result Body Mass Index 31.0 VITAL SIGNS: Reviewed. GENERAL: Well developed, well nourished, in no acute distress. HEAD: Normocephalic/atraumatic EYES: PERRLA, EOMI LUNGS: Normal breath sounds. No adventitious sounds or accessory muscle use. SpO2<96> CARDIOVASCULAR: Regular rate and rhythm without noted murmurs, no JVD or lower extremity edema. ABDOMEN: Soft, non-tender, non-distended with bowel sounds. MUSCULOSKELETAL: No tenderness, deformities, or effusions noted on gross inspection. EXTREMITIES: No cyanosis, clubbing or edema. SKIN: Inspection of the skin reveals no rashes NEUROLOGIC: Alert and oriented x 4. Strength and sensation to light touch were grossly intact x 4. Medical Decision Making Medical Decision Making MDM Narrative: 57-year-old male with apparent alcohol withdrawal symptoms that appear to be mild in nature will proceed with lab workup, get a CIWA scale, but if otherwise stable will likely be discharged and/or off for detox. Reviewed all investigations and patient is otherwise medically cleared for detox placement. Signed out to Dr Mandel. Differential Diagnosis Please see the discussion above Lab Data Please see the discussion above 11/26/22 14:30 11/26/22 14:30 Labs: Lab Results 11/26/22 11/26/22 11/26/22 Range/Units 14:30 14:30 14:30 WBC 8.0 (4.8-10.8) X10*3/uL RBC 4.93 (4.60-5.80) X10*6/uL Hgb 14.2 (14.0-18.0) g/dl Hct 41.3 L (42.0-52.0) % MCV 83.8 (80.0-98.0) fL MCH 28.8 (27.0-33.0) pg MCHC 34.4 (31.0-36.0) g/dl RDW 13.4 (11.0-16.0) % Plt Count 177 D (160-400) X10*3/uL MPV 9.4 (9.4-12.4) fL Immature Gran % (Auto) 0.2 (0.0-0.4) % Neut % (Auto) 65.8 (45-73) % Lymph % (Auto) 23.2 (20-40) % [place] % (Auto) 6.5 (2-11) % Eos % (Auto) 3.1 (0-4) % Baso % (Auto) 1.2 (0-2) % Lymph # (Auto) 1.9 (1.2-4.9) X10*3/uL [place] # (Auto) 0.5 (0.1-1.2) X10*3/uL Eos # (Auto) 0.3 (0.0-0.4) X10*3/uL Baso # (Auto) 0.1 (0.0-0.2) X10*3/uL Abs Immat Gran (auto) 0.02 (0.00-0.03) X10*3/uL Absolute Neuts (auto) 5.3 (2.0-8.3) x10*3/uL Absolute Nucleated RBC 0.000 (0.0-0.012) X10*3/uL Nucleated RBC % (auto) 0.0 (0.0-0.2) /100WBC Sodium 143 (135-145) mmol/L Potassium 3.7 (3.3-5.1) mmol/L Chloride 109 H (96-108) mmol/L Carbon Dioxide 19 L (22-29) mmol/L Anion Gap 19 (12-20) BUN 11 (9-16) mg/dL Creatinine 1.02 (0.5-1.4) mg/dL Estim Creat Clear Calc 88.8 Estimated GFR > 60 Random Glucose 151 H (60-115) mg/dL Calcium 9.3 (8.4-10.2) mg/dL Total Bilirubin 1.0 (0.0-1.0) mg/dL AST 32 (5-37) U/L ALT 27 (0-40) U/L Alkaline Phosphatase 110 (39-117) U/L Troponin I High Sens < 3.5 (<3.5-35.0) ng/L B-Natriuretic Peptide (<100) pg/mL Total Protein 7.2 (6.5-8.0) g/dL Albumin 4.1 (3.5-5.0) g/dL Lipase 29 (8-78) U/L Ethyl Alcohol 56 mg/dL COVID-19 (YADIRA) (Negative) COVID-19 Clin Com 11/26/22 11/26/22 Range/Units 14:30 14:30 WBC (4.8-10.8) X10*3/uL RBC (4.60-5.80) X10*6/uL Hgb (14.0-18.0) g/dl Hct (42.0-52.0) % MCV (80.0-98.0) fL MCH (27.0-33.0) pg MCHC (31.0-36.0) g/dl RDW (11.0-16.0) % Plt Count (160-400) X10*3/uL MPV (9.4-12.4) fL Immature Gran % (Auto) (0.0-0.4) % Neut % (Auto) (45-73) % Lymph % (Auto) (20-40) % [place] % (Auto) (2-11) % Eos % (Auto) (0-4) % Baso % (Auto) (0-2) % Lymph # (Auto) (1.2-4.9) X10*3/uL [place] # (Auto) (0.1-1.2) X10*3/uL Eos # (Auto) (0.0-0.4) X10*3/uL Baso # (Auto) (0.0-0.2) X10*3/uL Abs Immat Gran (auto) (0.00-0.03) X10*3/uL Absolute Neuts (auto) (2.0-8.3) x10*3/uL Absolute Nucleated RBC (0.0-0.012) X10*3/uL Nucleated RBC % (auto) (0.0-0.2) /100WBC Sodium (135-145) mmol/L Potassium (3.3-5.1) mmol/L Chloride (96-108) mmol/L Carbon Dioxide (22-29) mmol/L Anion Gap (12-20) BUN (9-16) mg/dL Creatinine (0.5-1.4) mg/dL Estim Creat Clear Calc Estimated GFR Random Glucose (60-115) mg/dL Calcium (8.4-10.2) mg/dL Total Bilirubin (0.0-1.0) mg/dL AST (5-37) U/L ALT (0-40) U/L Alkaline Phosphatase (39-117) U/L Troponin I High Sens (<3.5-35.0) ng/L B-Natriuretic Peptide < 10 (<100) pg/mL Total Protein (6.5-8.0) g/dL Albumin (3.5-5.0) g/dL Lipase (8-78) U/L Ethyl Alcohol mg/dL COVID-19 (YADIRA) Negative (Negative) COVID-19 Clin Com See Note Independent Interpretation I performed an independent interpretation of an: EKG Interpretation: Sinus tachycardia, HR-106, no STEMI, [place]/QRS/QTC is within normal limits. Medications Administered Discontinued Medications Generic Name Dose Route Start Last Admin Trade Name Freq PRN Reason Stop Dose Admin Ondansetron HCl 4 mg 11/26/22 16:18 11/26/22 16:24 Ondansetron Hcl 4 Mg/2 Ml Vial IVPUSH 11/26/22 16:19 4 mg ONCE ONE Administration Discharge Plan Discharge Clinical Impression: Alcohol withdrawal, Alcohol use disorder Patient Disposition: Still a Patient Prescriptions: No Action trazodone 50 mg tablet 1 tab PO BEDTIME amlodipine 5 mg tablet 1 tab PO DAILY pantoprazole 40 mg tablet,delayed release (DR/EC) 1 tab PO DAILY ibuprofen 400 mg tablet 1 tab PO TID albuterol sulfate 90 mcg/actuation HFA aerosol inhaler 2 inh inhalation Q4H paroxetine HCl 40 mg tablet 1 tab PO QAM ondansetron 4 mg tablet,disintegrating 4 mg PO TID PRN (Reason: Nausea) oxycodone 5 mg tablet 1 tab PO Q6H PRN (Reason: severe pain) hydroxyzine pamoate 25 mg capsule 25 mg PO BID nicotine (polacrilex) 4 mg lozenge 1 ea PO QID PRN (Reason: Withdrawal Symptoms) bupropion HCl 150 mg tablet extended release 24 hr 1 tab PO DAILY (DME) FreeStyle Lite Strips Strip See Rx Instructions Not Applicable TID Qty: 10 Rx Instructions: As directed (DME) lancets [Ultra-Care Lancets] 30 gauge misc See Rx Instructions .ROUTE TID Qty: 100 Rx Instructions: As directed (DME) BD AutoShield Duo Pen Needle 30 gauge x 3/16 needle See Rx Instructions .ROUTE .MEDSUPPLY Qty: 100 Rx Instructions: As directed
--- NOTE | 2022-11-26 16:08 | PC.NURSE ---
MD notified patient having stomach discomfort awaiting orders.
[2022-11-26] MEDS: ondansetron HCL 4 MG/2 ML VIAL IVPUSH (16:24)
[2022-11-26 17:27] LABS: B Type Natriuretic Peptide < 10 pg/mL (<100)
[2022-11-26 18:29] LABS: Lipase 29 U/L (8-78)
--- NOTE | 2022-11-26 18:32 | PC.NURSE ---
Patient sleeping easily aroused will CTM
[2022-11-26] MEDS: chlordiazePOXIDE HCl 25 MG CAPSULE PO (19:36)
--- NOTE | 2022-11-26 21:10 | MHC.RECOVSUP ---
? Reason for consult:ETOH o? Current location:[facility]? o? Identified substance use concern:? -? Seeking ATS (detox) ? Intervention: o? ATS bed search started/completed/in process o? Community resources provided ? Plan: o? Bed search in progress to o? Follow up tomorrow? ? Additional information:Lázaro submitted referrals to [facility] for detox treatment.
--- NOTE | 2022-11-26 22:10 | PC.NURSE ---
Assumed care of pt. at 1900. Pt. lying in bed at that time with reports of pain in the abdomen 06/14 and a headache 03/14. Pt. tremulous when arms outstretched. Pt. overall scores a 10 on the CIWA. Pt. pending a detox bed and is working with the coach driver. Pt. medicated per NOV to manage w/d symptoms.
--- NOTE | 2022-11-26 23:01 | MHC.EDTECH ---
just taking over this assignment from tech kris
--- NOTE | 2022-11-26 23:30 | PC.NURSE ---
This health technical writer assumed care of this Pt at 2300. Pt appears to be sleeping, easily awakens upon verbal stimuli, A&Ox3, reports some discomfort to ABD area , denies any pain. Tremors noted on arm extension, reports mild anxiety, CIWA score 6. Will CTM.
[2022-11-27] VITALS (13 sets, daily range): BP systolic 114–188; BP diastolic 65–109; PULSE 77–98; RESP 12–21; TEMP 36.6–37; O2SAT 92–100
[2022-11-27 00:03] LABS: Amphetamine Screen Urine Not Detected (Not Detect); Barbiturates, Urine POSITIVE (Not Detect); Benzodiazepines Screen Urine POSITIVE (Not Detect); Cannabinoid Screen Urine Not Detected (Not Detect); Cocaine Screen Urine POSITIVE (Not Detect); Fentanyl, urine POSITIVE (Not Detect); Opiate Screen Urine Not Detected (Not Detect); Phencyclidine Screen Urine Not Detected (Not Detect)
[2022-11-27] MEDS: amLODIPine Besylate 10 MG TABLET PO (00:52)
[2022-11-27] MEDS: LORazepam 1 MG TABLET 2 MG PO (00:52)
--- NOTE | 2022-11-27 00:53 | PC.NURSE ---
Pt BP 188/98, Pt states he has high BP, not taking meds at home. Dr. Mandel notified, new orders given. Meds given as documented.
[2022-11-27] MEDS: chlordiazePOXIDE HCl 25 MG CAPSULE 50 MG PO (08:24)
--- NOTE | 2022-11-27 08:31 | PC.NURSE ---
assumed care of this pt at 0700 when pt was still sleeping. 0800 pt CIWA score 11, tremulous with arms outstretched, mild anxiety, and c/o 7/10 pain in abdomen. pt asking for more Librium. notified and pt medicated per nov. pt BP 158/109. wctm.
--- NOTE | 2022-11-27 11:09 | PC.NURSE ---
assumed care of pt at 1100, pt sleeping, pending detox placement.
--- NOTE | 2022-11-27 13:31 | PHA.MEDREC ---
Pharmacy Consult ? Medication Reconciliation Pharmacy has completed the medication reconciliation. RN had completed med rec. Med rec updated by pharmacy and Dr. Chang notified of changes. Patient was not a good historian. Removed Abilify, atorvastatin, oxycodone and flomax since patient has not filled since March.
[2022-11-27] MEDS: Acetaminophen 325 MG TABLET 650 MG PO (14:09)
[2022-11-27] MEDS: amLODIPine Besylate 5 MG TABLET PO (14:09)
[2022-11-27] MEDS: PARoxetine HCL 40 MG TABLET PO (14:10)
--- NOTE | 2022-11-27 14:19 | PC.NURSE ---
Pt medicated per provider order. CIWA 3, COWS 2. rhythmic gymnastics coach at bedside. Plan for patient to go to detox today.
--- NOTE | 2022-11-27 15:45 | MHC.EDTECH ---
this pct assumed care of pt at 1500 ,vitals sign taken ,nunu wang is aware of pt high bp .
[2022-11-27] MEDS: Ibuprofen 600 MG TABLET PO (16:27)
--- NOTE | 2022-11-27 18:34 | PC.NURSE ---
[facility] now states unable to take pt for detox d/t low staffing at facility. States if we keep pt one more night, will inform provider
[2022-11-27] MEDS: traZODone HCL 50 MG TABLET PO (21:57)
--- NOTE | 2022-11-28 | ECG_ITS ---
Test Reason : ETOH Blood Pressure : / mmHG Vent. Rate : 089 BPM Atrial Rate : 089 BPM P-R Int : 160 ms QRS Dur : 078 ms QT Int : 364 ms P-R-T Axes : 051 025 046 degrees QTc Int : 442 ms Normal sinus rhythm Normal ECG When compared with ECG of 26-NOV-2022 14:16, No significant change was found Referred By: Gemma Mandel Electronically Signed By:VIJI BRAY MD
[2022-11-28] MEDS: LORazepam 1 MG TABLET 2 MG PO (01:38)
--- NOTE | 2022-11-28 01:44 | PC.NURSE ---
Pt. reporting chest pain 04/14, EKG and troponin ordered per provider. Pt. also medicated with PO ativan per provider order.
[2022-11-28 02:13] LABS: Troponin-I High Sensitivity < 3.5 ng/L (<3.5-35.0)
--- NOTE | 2022-11-28 03:51 | PC.NURSE ---
Pt. up to use bathroom. Pt. now back in bed sleeping respirations even and unlabored. No distress noted. Will continue to monitor.
[2022-11-28 06:39] VITALS: BP 154/62; PULSE 95; RESP 18; O2SAT 98
[2022-11-28 07:31] VITALS: BP 149/103; PULSE 107; RESP 13; TEMP 37.3; O2SAT 98
--- NOTE | 2022-11-28 08:00 | PC.NURSE ---
Resumed care of patient this morning, he is a/ox4, resting comfortably in bed, stable on RA. Reporting 3/10 stomach cramping, stating the ativan works best for his pain. Denies SI/HI. Plan in place is currently for a detox bed, pt in agreement.
[2022-11-28] MEDS: amLODIPine Besylate 5 MG TABLET PO (08:31)
[2022-11-28] MEDS: Omeprazole 20 MG CAPSULE.DR PO (08:31)
[2022-11-28] MEDS: PARoxetine HCL 40 MG TABLET PO (08:31)
[2022-11-28] MEDS: LORazepam 1 MG TABLET PO (09:24)
[2022-11-28] MEDS: Acetaminophen 325 MG TABLET 975 MG PO (09:24)
[2022-11-28 09:25] VITALS: BP 141/97; PULSE 112; RESP 15; TEMP 36.9; O2SAT 96
--- NOTE | 2022-11-28 09:28 | PC.NURSE ---
pt alert, oriented. reporting 8/10 pain in head, abd, chest. monitor technician on- sinus tach. Vitals otherwise stable. pt medicated per order with tylenol and ativan. pt resting at this time will CTM.
--- NOTE | 2022-11-28 10:34 | PC.NURSE ---
patient moved to [facility] for hospital convenience, pt calm/compliant upon move.
== END 2022-11-28 12:12 | disposition home or self-care (01) ==
PROVIDERS: Physician Assistant; Student in an Organized Health Care Education/Training Program; Emergency Provider Emergency Medicine
DX: F10.239 Alcohol dependence with withdrawal, unspecified (principal); Y90.2 Blood alcohol level of 40-59 mg/100 ml; R07.89 Other chest pain; Z20.822 Contact with and (suspected) exposure to COVID-19; Z20.828 Contact with and (suspected) exposure to other viral communicable diseases; Z79.899 Other long term (current) drug therapy
CPT/HCPCS: 36415; 71045; 80053; 80307; 82077; 83690; 83880; 84484; 85025; 87635; 93005; 96374; 99285; J2405

== ENCOUNTER 2023-01-11 12:51 | Emergency (ER) | payer MEDICARE, MEDICAID, SELFPAY ==
[2023-01-11 13:03] VITALS: BP 182/128; PULSE 104; PULSE 97; RESP 18; TEMP 36.9; O2SAT 96; O2SAT 97; BMI 28.0
[2023-01-11 13:14] VITALS: BP 170/101; PULSE 97; RESP 18; TEMP 36.9; O2SAT 96
--- NOTE | 2023-01-11 14:06 | ED.ALCOHOL ---
HPI - Alcohol General Chief Complaint: ETOH/Substance Use Stated Complaint: DIZZY,ABD PAIN,? ETOH WITHDRAWAL PER EMS Time Seen by Provider: 01/11/23 13:43 Source: patient Mode of arrival: EMS Limitations: no limitations History of Present Illness HPI narrative: Patient comes to the emergency room via ambulance from your [facility]. Patient states that he was trying to get in [facility] for detox. However, he was too shaky and therapist the staff was concerned that the patient was withdrawing and sent him via ambulance to the emergency room. Patient states that he drinks 1/4 pt of hard liquor every day. His last drink was over 24 hours ago. Related Data Home Medications Medication Instructions Recorded Confirmed blood sugar diagnostic (FreeStyle #10 ea 09/08/21 02/11/22 Lite Strips) lancets 30 gauge (Ultra-Care #100 ea 09/08/21 02/11/22 Lancets) pen needle,diabetic dual safty 30 #100 ea 09/08/21 02/11/22 gauge x 3/16 (BD AutoShield Duo Pen Needle) albuterol sulfate 90 mcg/actuation 2 inh inhalation Q4H PRN Shortness 10/18/22 11/27/22 aerosol inhaler Of Breath bupropion HCl 150 mg 24 hr tablet, 1 tab PO DAILY 10/18/22 11/27/22 extended release hydroxyzine pamoate 25 mg capsule 25 mg PO BID PRN Anxiety 10/18/22 11/27/22 ibuprofen 400 mg tablet 1 tab PO TID PRN Pain (Scale Score 10/18/22 11/27/22 1-3) amlodipine 5 mg tablet 5 mg PO DAILY 11/27/22 11/27/22 nicotine (polacrilex) 4 mg buccal 4 mg PO QID PRN Nicotine Cravings 11/27/22 11/27/22 lozenge pantoprazole 40 mg tablet,delayed 40 mg PO DAILY@0630 11/27/22 11/27/22 release paroxetine HCl 40 mg tablet 40 mg PO DAILY 11/27/22 11/27/22 potassium chloride 10 mEq 10 meq PO DAILY 11/27/22 11/27/22 tablet,extended release(part/cryst) spironolactone 25 mg tablet 25 mg PO DAILY 11/27/22 11/27/22 trazodone 50 mg tablet 50 mg PO BEDTIME 11/27/22 11/27/22 Allergies Allergy/AdvReac Type Severity Reaction Status Date / Time No Known Allergies Allergy Verified 11/27/22 00:35 [No Known Allergies*] Review of Systems Review of Systems: Constitutional : No Weight loss, No Fever, No Chills, No Night Sweats, No Fatigue, No Malaise, complaining of shakiness ENT/Mouth : No Hearing loss, No Ear Pain, No Nasal Congestion, No Sinus Pain, No Hoarseness, No sore throat, No Rhinorrhea, No Swallowing Difficulty Eyes: No Eye Pain, No Swelling, No Redness, No Foreign Body, No Discharge, No Vision Changes Cardiovascular : No Chest Pain, No SOB, No Dyspnea on Exertion, No Orthopnea, No Edema, No Palpitations Respiratory : No Cough, No Sputum, No Wheezing, No Smoke Exposure, No Dyspnea Gastrointestinal : No Nausea, No Vomiting, No Diarrhea, No Constipation, No abdominal Pain, No Hematochezia, No Melena Genitourinary : no irregular bleeding, No Dysuria, No Urinary Frequency, No Hematuria, No Urinary Incontinence, No Urgency, No Flank Pain, No Urinary Flow Changes, No Hesitancy Musculoskeletal : No joint pain, No Myalgias, No Joint Swelling Skin : No Skin Lesions, No rash Neuro : No Weakness, No Numbness, No Paresthesias, No Loss of Consciousness, No Dizziness, No Headache Psych : No Anxiety/Panic, No Depression, No SI/HI/AH/VH, No Social Issues, Heme/Lymph: No Bruising, No Bleeding,No Lymphadenopathy Endocrine : No Polyuria, No Polydipsia, No Temperature Intolerance COUNT INCLUDES THE [facility] Past Medical History Medical History Alcohol use disorder, moderate, dependence Anxiety CHF (congestive heart failure) Cirrhosis of liver Cocaine abuse COPD (chronic obstructive pulmonary disease) Diabetes Hypertension Interstitial lung disease Obesity (BMI 35.0-39.9 without comorbidity) KATHYA (obstructive sleep apnea) Smoker TBI (traumatic brain injury) Surgical History H/O brain surgery No significant past surgical history Family History Family History Other Lymphoma Social History Social History Household Members: Other Household Members Other:: 2 roommates Housing: Apartment Housing Other:: Sober House Do you presently have visiting nurse or other home services: No Alcohol intake: current Alcohol intake frequency: 3 or more drinks per day Alcohol type: hard liquor Patient Tobacco Use Status: Current everyday Tobacco user Tobacco use type: Cigarette Cigarette Packs Per Day: 0.5 Cigarettes Per Day: 10.0 Years Smoked: 40 Smoked in Last 30 Days: Yes Second Hand Smoke Exposure: Yes Use of substances other than those prescribed or required for medical reasons: Yes Substance Use Type: Crack/Cocaine and Heroin Substance Use Frequency: Chronic Longstanding Last Used Substance: Weeks (ago) Any prior treatment program specific to substance use: Yes Advance Directives: Yes Advance Directives on File: Yes Advance Directives Date on File: 05/20/21 service: No Current occupational status: unemployed and disabled Physical Exam ED Vital Signs: Vital Signs - 24 hr 01/11/23 13:03 01/11/23 13:14 Temperature 98.5 F 98.5 F Pulse Rate 97 97 Respiratory Rate 18 18 Blood Pressure 170/101 H Pulse Oximetry 96 96 Oxygen Delivery Method Room Air Room Air BMI result Body Mass Index 28.0 Const Other: Appearance: Alert. Oriented X3. No acute distress. Eyes: Pupils equal, round and reactive to light. ENT: Pharynx normal. Neck: Normal inspection. Neck supple. No lymph nodes noted. No crepitus CVS: Normal heart rate and rhythm. Pulses normal. Normal S1 and S2 Respiratory: No respiratory distress. Breath sounds normal. No Wheezing. No rales Abdomen: Soft and nontender. No rigidity. No distention. Skin: Skin warm and dry. Normal skin color. Normal skin turgor. Extremities: No lower extremity edema. No Lacerations. No Rash Neuro: Oriented X 3. No motor deficit. No sensory deficit. Moving all extremities. No slurred speech. CN 2 through 12 grossly intact Psych: calm, cooperative, normal affect Course Course Course Narrative: -it was noted that when any of the staff is at bedside with the patient, he has intentional tremor. However, when the staff is not interacting with the patient, patient does not have any tremor at all. Patient was given 2 mg of Ativan. I do not believe that patient is actively withdrawing -patient's labs pending -consult to care team/motorcoach operator pending Medical Decision Making Medical Decision Making MDM Narrative: -patient was evaluated by the care team, patient has a bed available for tomorrow, January 12 at [facility] -will remain on physician observation until patient gets discharged. -denies SI or HI, not on a Section 12 Differential Diagnosis Differential Diagnoses: The differential diagnosis associated with the presentation includes (Alcohol abuse, alcohol intoxication, substance abuse) Admission/Observation Consideration of admission/observation: Escalation of care including admission/observation considered (He will remain under observation of blood tomorrow here in the emergency room) Lab Data 01/11/23 14:42 01/11/23 14:42 Labs: Lab Results 01/11/23 01/11/23 01/11/23 Range/Units 14:42 14:42 14:42 WBC 6.0 (4.8-10.8) X10*3/uL RBC 4.73 (4.60-5.80) X10*6/uL Hgb 13.4 L (14.0-18.0) g/dl Hct 39.9 L (42.0-52.0) % MCV 84.4 (80.0-98.0) fL MCH 28.3 (27.0-33.0) pg MCHC 33.6 (31.0-36.0) g/dl RDW 14.6 (11.0-16.0) % Plt Count 143 L (160-400) X10*3/uL MPV 8.7 L (9.4-12.4) fL Immature Gran % (Auto) 0.3 (0.0-0.4) % Neut % (Auto) 65.5 (45-73) % Lymph % (Auto) 25.9 (20-40) % [place] % (Auto) 5.5 (2-11) % Eos % (Auto) 2.0 (0-4) % Baso % (Auto) 0.8 (0-2) % Lymph # (Auto) 1.5 (1.2-4.9) X10*3/uL [place] # (Auto) 0.3 (0.1-1.2) X10*3/uL Eos # (Auto) 0.1 (0.0-0.4) X10*3/uL Baso # (Auto) 0.1 (0.0-0.2) X10*3/uL Abs Immat Gran (auto) 0.02 (0.00-0.03) X10*3/uL Absolute Neuts (auto) 3.9 (2.0-8.3) x10*3/uL Absolute Nucleated RBC 0.000 (0.0-0.012) X10*3/uL Nucleated RBC % (auto) 0.0 (0.0-0.2) /100WBC PT 12.9 (10.0-13.1) SEC INR 1.1 (0.9-1.1) Sodium 140 (135-145) mmol/L Potassium 3.5 (3.3-5.1) mmol/L Chloride 105 (96-108) mmol/L Carbon Dioxide 26 (22-29) mmol/L Anion Gap 13 (12-20) BUN 6 L (9-16) mg/dL Creatinine 0.93 (0.5-1.4) mg/dL Estim Creat Clear Calc 95.8 Estimated GFR > 60 Random Glucose 107 (60-115) mg/dL Calcium 9.2 (8.4-10.2) mg/dL Magnesium 1.6 (1.6-2.6) mg/dL Total Bilirubin 1.5 H (0.0-1.0) mg/dL Direct Bilirubin 0.5 (0.0-0.5) mg/dL AST 46 H (5-37) U/L ALT 32 (0-40) U/L Alkaline Phosphatase 126 H (39-117) U/L Total Protein 7.0 (6.5-8.0) g/dL Albumin 4.0 (3.5-5.0) g/dL Ethyl Alcohol mg/dL 01/11/23 Range/Units 14:42 WBC (4.8-10.8) X10*3/uL RBC (4.60-5.80) X10*6/uL Hgb (14.0-18.0) g/dl Hct (42.0-52.0) % MCV (80.0-98.0) fL MCH (27.0-33.0) pg MCHC (31.0-36.0) g/dl RDW (11.0-16.0) % Plt Count (160-400) X10*3/uL MPV (9.4-12.4) fL Immature Gran % (Auto) (0.0-0.4) % Neut % (Auto) (45-73) % Lymph % (Auto) (20-40) % Lasalle % (Auto) (2-11) % Eos % (Auto) (0-4) % Baso % (Auto) (0-2) % Lymph # (Auto) (1.2-4.9) X10*3/uL [place] # (Auto) (0.1-1.2) X10*3/uL Eos # (Auto) (0.0-0.4) X10*3/uL Baso # (Auto) (0.0-0.2) X10*3/uL Abs Immat Gran (auto) (0.00-0.03) X10*3/uL Absolute Neuts (auto) (2.0-8.3) x10*3/uL Absolute Nucleated RBC (0.0-0.012) X10*3/uL Nucleated RBC % (auto) (0.0-0.2) /100WBC PT (10.0-13.1) SEC INR (0.9-1.1) Sodium (135-145) mmol/L Potassium (3.3-5.1) mmol/L Chloride (96-108) mmol/L Carbon Dioxide (22-29) mmol/L Anion Gap (12-20) BUN (9-16) mg/dL Creatinine (0.5-1.4) mg/dL Estim Creat Clear Calc Estimated GFR Random Glucose (60-115) mg/dL Calcium (8.4-10.2) mg/dL Magnesium (1.6-2.6) mg/dL Total Bilirubin (0.0-1.0) mg/dL Direct Bilirubin (0.0-0.5) mg/dL AST (5-37) U/L ALT (0-40) U/L Alkaline Phosphatase (39-117) U/L Total Protein (6.5-8.0) g/dL Albumin (3.5-5.0) g/dL Ethyl Alcohol < 10 mg/dL Medications Administered Discontinued Medications Generic Name Dose Route Start Last Admin Trade Name Freq PRN Reason Stop Dose Admin Lorazepam 2 mg 01/11/23 14:05 01/11/23 14:16 Lorazepam 1 Mg Tablet PO 01/11/23 14:06 2 mg ONCE ONE Administration Discharge Plan Discharge Clinical Impression: Alcohol dependence Patient Disposition: Still a Patient Prescriptions: No Action ibuprofen 400 mg tablet 1 tab PO TID PRN (Reason: Pain (Scale Score 1-3)) albuterol sulfate 90 mcg/actuation HFA aerosol inhaler 2 inh inhalation Q4H PRN (Reason: Shortness Of Breath) hydroxyzine pamoate 25 mg capsule 25 mg PO BID PRN (Reason: Anxiety) bupropion HCl 150 mg tablet extended release 24 hr 1 tab PO DAILY trazodone 50 mg tablet 50 mg PO BEDTIME amlodipine 5 mg tablet 5 mg PO DAILY pantoprazole 40 mg tablet,delayed release (DR/EC) 40 mg PO DAILY@0630 paroxetine HCl 40 mg tablet 40 mg PO DAILY nicotine (polacrilex) 4 mg lozenge 4 mg PO QID PRN (Reason: Nicotine Cravings) spironolactone 25 mg tablet 25 mg PO DAILY potassium chloride 10 mEq tablet,ER particles/crystals 10 meq PO DAILY (DME) FreeStyle Lite Strips Strip See Rx Instructions Not Applicable TID Qty: 10 Rx Instructions: As directed (DME) lancets [Ultra-Care Lancets] 30 gauge misc See Rx Instructions .ROUTE TID Qty: 100 Rx Instructions: As directed (DME) BD AutoShield Duo Pen Needle 30 gauge x 3/16 needle See Rx Instructions .ROUTE .MEDSUPPLY Qty: 100 Rx Instructions: As directed
[2023-01-11] MEDS: LORazepam 1 MG TABLET 2 MG PO (14:16)
--- NOTE | 2023-01-11 14:20 | MHC.RECOVRN ---
Received call from Cori at [facility] that pt had presented as a walk in but was in active withdrawal and subsequently sent to [facility]. [facility] does not have bed availability until 7:45 tomorrow morning.
[2023-01-11 14:45] LABS: MANUAL DIFF FLAG NO
[2023-01-11 14:51] LABS: Basophils Absolute Auto 0.1 X10*3/uL (0.0-0.2); Basophils Percent Auto 0.8 % (0-2); Eosinophils Absolute Auto 0.1 X10*3/uL (0.0-0.4); Hematocrit 39.9 % (42.0-52.0); Hemoglobin 13.4 g/dl (14.0-18.0); Imm Gran Abs Auto 0.02 X10*3/uL (0.00-0.03); Imm Gran Pct Auto 0.3 % (0.0-0.4); Lymphocytes Absolute Auto 1.5 X10*3/uL (1.2-4.9); Lymphocytes Percent Auto 25.9 % (20-40); Mean Corpuscular HGB Conc 33.6 g/dl (31.0-36.0); Mean Corpuscular Hemoglobin 28.3 pg (27.0-33.0); Mean Corpuscular Volume 84.4 fL (80.0-98.0); Mean Platelet Volume 8.7 fL (9.4-12.4); Monocytes Absolute Auto 0.3 X10*3/uL (0.1-1.2); Monocytes Percent Auto 5.5 % (2-11); Neutrophils Absolute Auto 3.9 x10*3/uL (2.0-8.3); Neutrophils Percent Auto 65.5 % (45-73); Platelet Count 143 X10*3/uL (160-400); Red Blood Count 4.73 X10*6/uL (4.60-5.80); Red Cell Distribution Width 14.6 % (11.0-16.0)
[2023-01-11 15:07] LABS: INTERNATIONAL NORM RATIO 1.1 (0.9-1.1); Prothrombin Time 12.9 SEC (10.0-13.1)
[2023-01-11 15:26] LABS: Alanine Aminotransferase 32 U/L (0-40); Alkaline Phosphatase 126 U/L (39-117); Anion Gap 13 (12-20); Aspartate Amino Transferase 46 U/L (5-37); Bilirubin Direct 0.5 mg/dL (0.0-0.5); Bilirubin Total 1.5 mg/dL (0.0-1.0); Blood Urea Nitrogen 6 mg/dL (9-16); Calcium 9.2 mg/dL (8.4-10.2); Chloride 105 mmol/L (96-108); Creatinine Clr Calc Pharmacy 95.8; Estimated Glomerular Filt Rate > 60; Glucose Random 107 mg/dL (60-115); Magnesium 1.6 mg/dL (1.6-2.6); Potassium 3.5 mmol/L (3.3-5.1); Sodium 140 mmol/L (135-145)
--- NOTE | 2023-01-11 15:30 | MHC.RECOVSUP ---
Pt is not interested in going to [facility] and wants to go to [facility]. Provider confirmed pt can stay the night to go to [facility] in the morning.
[2023-01-11 15:31] LABS: Carbon Dioxide 26 mmol/L (22-29)
[2023-01-11 15:32] LABS: Ethanol < 10 mg/dL
[2023-01-11 20:26] LABS: Appearance Urine Clear; Color Urine Dark Yellow; Glucose Urine UA Negative (Negative); Leukocyte Esterase Urine Negative (Negative); Nitrite Urine Negative (Negative); Specific Gravity - Urine 1.025 (1.005-1.025); UMIC TRIGGER UACC YES; Urine Blood Negative (Negative); Urine Ketones Negative (Negative); Urine Protein 30 (1+) mg/dL (Neg-Trace)
[2023-01-11 20:29] LABS: Bacteria Urine None Seen (None Seen); Hyaline Casts Urine 0-2 /LPF (0-2); RBC Urine 0-2 /HPF (0-2); Squamous Epithelial Cell Urine 0-2 /HPF (0-2); WBC Urine 0-5 /HPF (0-5)
--- NOTE | 2023-01-11 20:30 | PC.NURSE ---
this rn assumed care of pt from previous shift nurse @ 181. pt resting quietly on stretcher at this time. pt able to provide urine sample in which sample was sent down to lab.
[2023-01-11 20:36] LABS: Amphetamine Screen Urine Not Detected (Not Detect); Barbiturates, Urine Not Detected (Not Detect); Benzodiazepines Screen Urine POSITIVE (Not Detect); Cannabinoid Screen Urine Not Detected (Not Detect); Cocaine Screen Urine POSITIVE (Not Detect); Fentanyl, urine POSITIVE (Not Detect); Opiate Screen Urine Not Detected (Not Detect); Phencyclidine Screen Urine Not Detected (Not Detect)
[2023-01-12 00:16] VITALS: BP 142/105; PULSE 83; RESP 16; TEMP 36.5; O2SAT 98
[2023-01-12 01:43] VITALS: BP 148/100; PULSE 89; RESP 15; O2SAT 95
--- NOTE | 2023-01-12 04:09 | PC.NURSE ---
pt sleeping on stretcher at this time. pt positioned on back. rise and fall of chest noted
[2023-01-12 06:14] VITALS: BP 138/90; PULSE 86; RESP 18; TEMP 36.5; O2SAT 97
[2023-01-12 08:00] VITALS: BP 141/89; PULSE 88; RESP 16; TEMP 36.7; O2SAT 97
--- NOTE | 2023-01-12 08:30 | PC.NURSE ---
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
== END 2023-01-12 08:55 | disposition home or self-care (01) ==
PROVIDERS: Emergency Provider Emergency Medicine
DX: F10.20 Alcohol dependence, uncomplicated (principal); R10.9 Unspecified abdominal pain; F41.9 Anxiety disorder, unspecified; E11.9 Type 2 diabetes mellitus without complications; I10 Essential (primary) hypertension; F14.10 Cocaine abuse, uncomplicated; F17.210 Nicotine dependence, cigarettes, uncomplicated; Z87.820 Personal history of traumatic brain injury; Z79.899 Other long term (current) drug therapy
CPT/HCPCS: 36415; 80048; 80076; 80307; 81001; 83735; 85025; 85610; 99284; 99285